=== PATIENT | female | born 1945 | race Caucasian/White ===

== ENCOUNTER 2019-07-08 21:49 | Inpatient (IN) ==
[2019-07-08] MEDS ORDERED: SODIUM CHLORIDE 0.9% 1000ML 1,000 ML IV ONE (22:02)
[2019-07-08] MEDS ORDERED: ONDANSETRON INJ 2 MG/ML 2 ML VIAL IV STA (22:02)
[2019-07-08] MEDS ORDERED: HYDROmorphone INJ 0.5 MG/0.5 ML SYR IV PRN (22:02)
[2019-07-08 22:44] LABS: Basophils # (auto) 0.07 K/uL (0-0.2); Basophils % (auto) 0.7 %; Eosinophils # (auto) 0.33 K/uL (0-0.5); Eosinophils % (auto) 3.3 %; Hemoglobin 13.9 g/dL (12.0-16.0); Immature Granulocytes # (auto) 0.01 K/uL (0.00-0.02); Immature Granulocytes % (auto) 0.1 %; Lymphocytes % (auto) 30.3 %; Mean Corpuscular Hgb Conc 33.9 g/dL (32-36); Mean Corpuscular Volume 94.3 fL (80-100); Mean Platelet Volume 9.2 fL (7.4-10.4); Monocytes # (auto) 1.08 K/uL (0.11-0.59); Monocytes % (auto) 10.9 %; Neutrophils # (auto) 5.41 K/uL (1.4-6.5); Neutrophils % (auto) 54.7 %; Platelet Count 251 K/uL (130-400); RDW Coefficient of Variation 13.2 % (11.5-14.5); RDW Standard Deviation 46.1 fL (36.4-46.3); Red Blood Count 4.35 M/uL (4.2-5.4)
[2019-07-08 23:02] LABS: Albumin Level 3.7 gm/dl (3.4-5.0); BUN Creatinine Ratio 22.6 (10-20); Calcium 9.1 mg/dl (8.5-10.1); Creatinine Clr Calc Pharmacy 63.2 ml/min; Est GFR (African American) 92.3; Est GFR (Non-African American) 79.6
[2019-07-08 23:05] LABS: Albumin Globulin Ratio 1.1 (0.9-2); Bilirubin,Total 0.2 mg/dl (0.2-1); Globulin 3.3 gm/dl (2.5-4.0)
[2019-07-08] MEDS ORDERED: IOVERSOL 100ml IV PRN (23:58)
[2019-07-09] MEDS ORDERED: LORazepam 0.5 MG/1 ML VIAL IV STA (00:28)
[2019-07-09] MEDS ORDERED: ONDANSETRON INJ 2 MG/ML 2 ML VIAL IV PRN (03:31)
[2019-07-09] MEDS ORDERED: D5W AND NSS 1,000 ML IV SCH (03:31)
[2019-07-09] MEDS ORDERED: HYDROmorphone INJ 0.5 MG/0.5 ML SYR IV PRN ×2 (03:31→16:44)
--- NOTE | 2019-07-09 04:19 | History and Physical Report ---
DATE OF ADMISSION: 07/09/2019 CHIEF COMPLAINT: Abdominal pain. HISTORY OF PRESENT ILLNESS: A 74-year-old female with past medical history significant for multinodular goiter, osteoarthritis, osteoporosis, epilepsy, neuropathy, generalized anxiety disorder, history of leukocytosis, presents with right upper quadrant abdominal pain going on since last Saturday; however, today it got worse, about 9/10 in severity, radiating to the upper portion of the chest. No nausea, no vomiting. Moved her bowels in the morning, which was normal. No bloody stools or black stools. Currently, passing gas little bit. No fever, no chills, no cough, no headache, no blurred vision, no sore throat. Has chronic dry cough on and off. Normal bladder movements. No burning micturition. Has chronic lower extremity swelling that has not increased. No rash. Currently living with her daughter, walks with help of a cane. In the ER, imaging studies, possible gastric volvulus, surgery was consulted. The patient is status post NG-tube, as per ER surgery is going to see in the morning and decide for further plan. ALLERGIES: BEE VENOM. PAST MEDICAL HISTORY: As mentioned above. PAST SURGICAL HISTORY: Repair of the elbow. MEDICATIONS: The patient is on vitamin C 1000 mcg p.o. daily, Tegretol-XR 400 mg p.o. b.i.d., Lumigan ophthalmic eyedrops in p.m., B complex with vitamin C tablet daily, Turmeric 500 mg p.o. daily, Centrum Silver 1 tablet daily. FAMILY HISTORY: Significant for: Daughter has breast cancer. Mother had CAD. Father had emphysema. Mother had uterine cancer. SOCIAL HISTORY: , currently living with her daughter. No smoking, alcohol rarely. No drug use. REVIEW OF SYMPTOMS: As per HPI. Rest of review of systems is negative. PHYSICAL EXAMINATION: GENERAL: The patient is of moderate build, not in acute distress. VITAL SIGNS: Temperature 36.5, pulse 110, respiratory rate 16, blood pressure 124/82, oxygen 94% on room air. HEENT: No pallor, no icterus. Pupils equal, round, reactive to light. NG tube seen. Oral mucosa moist. NECK: No JVD, no neck masses, no carotid bruits. CARDIOVASCULAR: S1, S2 heard. Tachycardia. No murmurs. RESPIRATORY SYSTEM: Normal AP diameter. No accessory muscle use. No wheezing, no crackles. ABDOMEN: Soft. Bowel sounds, very sluggish. Nontender. No guarding, no rigidity. No distention. CENTRAL NERVOUS SYSTEM: Nonfocal. EXTREMITIES: No edema, no erythema. LABORATORY DATA: WBC is 9.9, hemoglobin 13.9, hematocrit 41, platelets 251. Sodium 143, potassium 4, chloride 108, bicarbonate 26, BUN 17, creatinine 0.7, serum glucose 111, calcium 9.1, total bilirubin 0.2, AST 15, ALT 21, alkaline phosphatase 155. Lipase 105. Chest CT, gallbladder ultrasound, CT abdomen and pelvis, official reading pending. 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 1. Abdominal pain, possible gastric volvulus. Currently, status post NG tube. We will keep her n.p.o., IV fluids, IV pain meds p.r.n., IV antiemetics p.r.n. Surgery notified by the ER and is going to be seen in the a.m. We will monitor on the medical floor.Lipase normal.Will follow final ct scan report. 2. Possible gallstones. We will follow up with final gallbladder ultrasound report. 3. History of epilepsy. Continue carbamazepine via NG tube. 4. Osteoarthritis and osteoporosis. PT and OT when the patient is stable. 5. Deep venous thrombosis prophylaxis, sequential compression devices. DISPOSITION: Admit to medical floor. Expect discharge home and follow with her family doctor. Level 1 full code. PT and OT prior to discharge. Social Service to help with discharge planning. TIM
--- NOTE | 2019-07-09 06:38 | CT Scan Report ---
CT abd pelvis IV con only CLINICAL HISTORY: Right upper quadrant abdominal pain COMPARISON STUDY: Biliary ultrasound dated 07/08/2019 TECHNIQUE: The patient was scanned in a dynamic helical fashion during intravenous administration of 92 cc of Optiray 320. A dose lowering technique was utilized adhering to the principles of ALARA. CT DOSE: 460.31 mGy.cm FINDINGS: Lower chest: There is a large hiatal hernia. There is basilar atelectatic change. Liver: The contrast-enhanced liver is normal in size, contour, and attenuation. There is no intrahepa tic biliary ductal dilatation. The hepatic veins and portal veins are patent. Gallbladder: Unremarkable. Spleen: Normal in size and attenuation. Pancreas: There is slight indistinctness the peripancreatic fat. Clinical correlation in regards to a cute pancreatitis is recommended. Adrenal glands: There is a 17 mm left adrenal gland nodule. Kidneys: There is symmetric renal cortical enhancement. The kidneys are normal in size without hydron ephrosis. Bowel: There are no transition zones to indicate bowel obstruction. There is no evidence of acute div erticulitis. There are no findings to indicate acute appendicitis. Peritoneum: There is no intraperitoneal free air or abdominal ascites. Vasculature: The abdominal aorta is normal in course and caliber. Adenopathy: None. Pelvic viscera: The bladder, and pelvic viscera are unremarkable. Skeletal structures: There is an old T12 compression fracture. IMPRESSION: 1. Large hiatal hernia with an thoracic stomach. Gastric inversion not excluded 2. Motion artifact versus mild peripancreatic edema. Clinical correlation in regards to acute pancrea titis is recommended. 3. 17 mm left adrenal nodule 4. No evidence of bowel obstruction. No evidence of free air. 5. No evidence of acute appendicitis. No evidence of acute diverticulitis. Electronically signed by: Greg Clay M.D. 07/09/2019 6:36 AM
[2019-07-09 06:39] LABS: Appearance Urine Clear (Clear); Bacteria Urine Automated 4+ (Negative); Bilirubin Urine Negative (Negative); Blood Urine Trace (Negative); Color Urine Yellow; Glucose Urine UA Negative (Negative); Ketones Urine Negative (Negative); Leukocyte Esterase Urine Negative (Negative); Nitrite Urine Positive (Negative); Protein Urine Negative (Negative); RBC Urine Automated 0-4 /hpf (0-4); Specific Gravity Urine > 1.045 (1.000-1.030); Urobilinogen Urine Negative (Negative); pH Urine 5.5 (4.5-7.5)
--- NOTE | 2019-07-09 06:50 | Ultrasound Report ---
US gallbladder CLINICAL HISTORY: 74 years-old Female presenting with Pt c/o RUQ abd pain. TECHNIQUE: Real-time grayscale and limited color Doppler ultrasound imaging of the abdomen limited to the right upper quadrant was performed. COMPARISON: None. FINDINGS: Pancreas: Largely obscured due to overlying bowel gas. Liver: Normal echogenicity and echotexture. The liver measures 26.5 cm in maximal sagittal dimension, possibly a David lobe configuration. No sonographic evidence of hepatic mass. Main portal vein ballard nt with normal directional flow. Biliary: No intrahepatic biliary ductal dilatation. Common bile duct measures up to 2 mm in diameter. Gallbladder: Gallstones without evidence of gallbladder distention, wall thickening, or pericholecyst ic fluid or inflammatory change. Right kidney: Normal in appearance without evidence of hydronephrosis. Ascites: None. Other: None. IMPRESSION: Cholelithiasis. No biliary ductal dilatation or evidence of cholecystitis. Electronically signed by: Harvinder Kuhn M.D. 07/09/2019 6:49 AM
--- NOTE | 2019-07-09 07:26 | Surgery Consultation ---
Date of Consultation July 09, 2019 Assessment & Plan (1) Incarcerated hiatal hernia: currently no pain. clinically, her symptoms sounded much more like symptomatic gallstones after eating ice cream. no emesis or dysphagia. will d/c ngt ( not working anyway) will obtain a HIDA scan. may consider lap breanna vs simple observation....clinically symptoms not c/w incarcerated hiatal hernia. we could discuss elective repair of this with the cholecystectomy, vs cholecystectomy alone vs observation with no intervention. will d/w family after HIDA. (2) Gallstones: History of Present Illness Attending Physician: Bethel Zhu MD History of Present Illness pt states after eating ice cream last night, she developed RUQ pain. no n/v. severe at the time. ER w/u shows gallstones and a large hiatal hernia ( " cant r/o gastric volvulous). She was aware she has a hiatal hernia and is asymptomatic from it. denies dysphagia or gerd. currently no pain. no n/v. NGT with zero output overnight. Allergies Allergy/AdvReac Type Severity Reaction Status Date / Time No Known Allergies Allergy Unverified 07/08/19 23:04 Home Medications Home Medications Medication Instructions Recorded Confirmed Type B-complex with vitamin C [Super B 1 tab PO DAILY 07/08/19 07/08/19 History Complex-Vitamin C] Turmeric Capsule 500 mg PO DAILY 07/08/19 07/08/19 History bimatoprost [Lumigan] 1 drp OPHTHALMIC (EYE) PM 07/08/19 07/08/19 History calcium carbonate-vitamin D3 1 cap PO DAILY 07/08/19 07/08/19 History [Calcium 600 + D(3)] carbamazepine 400 mg PO BID 07/08/19 07/08/19 History [id number] acid-lutein [Centrum 1 tab PO DAILY 07/08/19 07/08/19 History Silver] Patient History Medical History Broken rib Glaucoma Seizure Surgical History History of elbow surgery Social History Preferred Language: Syriac Communication Ability: Effective Cadmium Liquor Maker Required: No Beliefs That Will Affect Care: None Current Living Situation: Family Current Living Situation Comment: Daughter Other Information That Helps Us Care for You: No Feels Safe at Home: Yes Safety Concerns: Feels Safe At This Time Smoking Status: Never smoker Hx Alcohol Use: Yes Alcohol type: wine and hard liquor Hx Substance Use: No Review of Systems Review of Systems: All systems reviewed & are unremarkable except as noted in HPI & below Physical Exam Constitutional: WD/WN, vitals as above no acute distress and not ill appearing denies pain currently. Eyes: PERRL, conjunctivae normal, anicteric sclerae EOM intact bilaterally ENMT: external ear and nose normal, oropharynx normal Ears: no hearing impairment Neck: trachea midline, no thyromegaly Respiratory: normal respiratory effort; no respiratory distress and does not use accessory muscles Cardiovascular: Rate/Rhythm: regular rhythm and + tachycardic Gastrointestinal (Abdomen): Percussion/Palpation: abdomen soft mild RUQ ttp. no g/r/r. Skin: no rashes, warm and dry Psychiatric: Orientation: alert, oriented x 3 and cooperative Results & Data Vital Signs (Past 12 Hours) Vital Signs Temp Pulse Pulse Pulse Resp BP BP 07/09/19 03:36 36.7 C 107 H 16 153/93 H 07/09/19 03:10 101 H 16 126/85 07/09/19 02:28 111 H 16 124/82 07/09/19 01:17 116 H 18 143/87 H 07/08/19 23:53 110 H 20 151/88 H 07/08/19 22:58 98 H 16 133/81 07/08/19 22:45 91 H 26 H 88/55 L 07/08/19 22:44 84 22 77/53 L 07/08/19 22:43 63 20 67/41 L 07/08/19 22:42 53 L 20 63/37 L 07/08/19 22:41 51 L 17 60/33 L 07/08/19 22:33 103 H 23 07/08/19 22:30 106 H 20 136/79 07/08/19 22:22 07/08/19 21:51 36.5 C 113 H 18 141/77 H Pulse Ox 07/09/19 03:36 93 07/09/19 03:10 94 07/09/19 02:28 94 07/09/19 01:17 92 07/08/19 23:53 93 07/08/19 22:58 92 07/08/19 22:45 92 07/08/19 22:44 92 07/08/19 22:43 92 07/08/19 22:42 07/08/19 22:41 90 07/08/19 22:33 92 07/08/19 22:30 94 07/08/19 22:22 96 07/08/19 21:51 96 PG Care Time/CCT Total # of Minutes Spent Total Time Spent with Patient: Total time spent is greater than 50% in coordination of care (as documented) at patient's floor/unit and/or counseling patient:
--- NOTE | 2019-07-09 07:29 | CT Scan Report ---
CT chest wo con CLINICAL HISTORY: 74 years-old Female presenting with gastric volvulus decompression s/p ng placement . TECHNIQUE: Multidetector CT imaging of the chest was performed without the use of intravenous contras t. IV contrast: None. One or more dose lowering techniques were used consistent with the principles o f ALARA (as low as reasonably achievable), including automatic exposure control, mA or kV adjustment to individual patient size, and/or use of iterative reconstruction. COMPARISON: None. CT DOSE (mGy.cm): The estimated cumulative dose is 351.67 mGy.cm. FINDINGS: Graphic User Interface Designer topogram: Cardiomegaly. Nasogastric tube in place. Soft tissues: Thyromegaly with multinodular goiter. Superior mediastinal and retrotracheal-retroesoph ageal component of the goiter. No axillary, supraclavicular, or mediastinal lymphadenopathy. Evaluati on of the danni limited without intravenous contrast. Atherosclerosis of the aorta. Normal heart size. Coronary artery calcification. No pericardial or pleural effusion. Large hiatal hernia, which is a m ixed sliding type and paraesophageal. A nasogastric tube is in place terminating in the region of the gastroesophageal junction with the tip looped back upon itself and terminating within the distal eso phagus (series 4 image 132). The esophagus is mildly distended with fluid and debris. The stomach coy ears inverted along the long axis of the stomach with the greater curvature likely above the lesser c urvature, consistent with organoaxial twisting. The hernia sac also contains unobstructed small bowel and a portion of the pancreas. Lungs and airways: No pneumothorax. Central airways patent. Pulmonary arteries mildly enlarged relati ve to adjacent bronchi. No interlobular septal thickening. Extensive paramediastinal consolidation vo lume loss in the lower lobes. Musculoskeletal: Degenerative changes of the spine. Moderate to severe compression fracture of T12. B enign hemangioma suspected in T9. IMPRESSION: 1. 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 2. Bibasilar atelectasis. 3. Moderate to severe compression fracture of T10. This is age-indeterminate. The report will be called/faxed according to standard departmental protocol. Electronically signed by: Harvinder Kuhn M.D. 07/09/2019 7:27 AM
[2019-07-09 07:40] LABS: Basophils # (auto) 0.03 K/uL (0-0.2); Basophils % (auto) 0.3 %; Eosinophils # (auto) 0.11 K/uL (0-0.5); Eosinophils % (auto) 1.1 %; Hematocrit (blood only) 39.7 % (37-47); Hemoglobin 13.3 g/dL (12.0-16.0); Immature Granulocytes # (auto) 0.01 K/uL (0.00-0.02); Immature Granulocytes % (auto) 0.1 %; Lymphocytes # (auto) 2.22 K/uL (1.2-3.4); Lymphocytes % (auto) 23.2 %; Mean Corpuscular Hemoglobin 32.1 pg (25-34); Mean Corpuscular Hgb Conc 33.5 g/dL (32-36); Mean Corpuscular Volume 95.9 fL (80-100); Mean Platelet Volume 9.2 fL (7.4-10.4); Monocytes # (auto) 0.95 K/uL (0.11-0.59); Monocytes % (auto) 9.9 %; Neutrophils # (auto) 6.25 K/uL (1.4-6.5); Neutrophils % (auto) 65.4 %; Platelet Count 248 K/uL (130-400); RDW Coefficient of Variation 13.5 % (11.5-14.5); RDW Standard Deviation 47.4 fL (36.4-46.3); Red Blood Count 4.14 M/uL (4.2-5.4); White Blood Count 9.57 K/uL (4.8-10.8)
[2019-07-09 08:08] LABS: BUN Creatinine Ratio 19.9 (10-20); Calcium 8.9 mg/dl (8.5-10.1); Creatinine Clr Calc Pharmacy 79.2 ml/min; Est GFR (Non-African American) 90.6; Magnesium 2.1 mg/dl (1.8-2.4); Potassium 4.8 mmol/L (3.5-5.1)
[2019-07-09] MEDS: CARBAMAZEPINE 200 MG TABCR PO SCH ×2 (09:19→20:55)
[2019-07-09] MEDS: D5W AND 1/2NSS 1,000 ML IV SCH (10:14)
[2019-07-09] MEDS ORDERED: SINCALIDE 1.4 MCG in 0.9 % SODIUM CHLORIDE 100 ML IV SCH (14:15)
--- NOTE | 2019-07-09 16:00 | Nuclear Medicine Report ---
NM hepatobiliary EF CLINICAL HISTORY: 74 years-old Female presenting with ruq pain, cholelithiasis, gastric volvulus, r/o cholecystitis. TECHNIQUE: Dynamic anterior imaging of the gallbladder was first acquired immediately following the i ntravenous administration of 5.2 mCi Tc-99m Choletec. Subsequently, dynamic delayed imaging of the ga llbladder was initiated 65 minutes after Choletec administration acquiring images every 5 minutes ove r a span of 40-60 minutes. The gallbladder ejection fraction was calculated from delayed imaging. PHARMACOLOGY: Medication: Sincalide 1.4 mcg administered IV 5 minutes prior to the start of delayed imaging as a 30 minute infusion. Oral meal: None. COMPARISON: None. FINDINGS: Uniform hepatic tracer accumulation is shown. Prompt intrahepatic biliary excretion is seen. The gall bladder and common bile duct are visualized by 11-15 minutes. Expected radiotracer activity within sm all bowel indicates an unobstructed common duct. The gallbladder does not demonstrate a normal rate of decrease in radiotracer activity, consistent wi th abnormal contraction in response to CCK. Gallbladder ejection fraction (GBEF) measures 14%. Reference range (with Sincalide use): Unequivocally normal: Greater than 50%. Unequivocally abnormal: Less than 35%. Notably, the lower limit of normal GBEF in the setting of a lactose-free fatty-meal food supplement ( Boost shake) has been reported as > or = 33%. Louis ZHOU, Fredis DA, Tonia LR, et al. Cholecystokinin cholescintigraphy: methodology and normal travon ues using a lactose-free fatty-meal food supplement. J Nucl Med. 2003;44:7112-9970. IMPRESSION: 1. No evidence of acute cholecystitis. Abnormal gallbladder ejection fraction consistent with chroni c cholecystitis. Electronically signed by: Harvinder Kuhn M.D. 07/09/2019 3:59 PM
--- NOTE | 2019-07-09 16:27 | Hospitalist Progress Note ---
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 This does not result in a complete obstruction though a partial organoaxial volvulus is suspected -General surgery evaluated the patient in AM of 07/09/19. NG tube was removed. General surgery impression that clinically symptoms are not consistent with incarcerated hiatal hernia, and general surgery suggest that symptoms are from symptomatic gallstones as imaged on ultrasound "Gallstones without evidence of gallbladder distention, wall thickening, or pericholecystic fluid or inflammatory change." -HIDA scan was ordered by general surgery and HIDA scan result of "unobstructed common duct"; "No evidence of acute cholecystitis. Abnormal gallbladder ejection fraction consistent with chronic cholecystitis" -continue to have patient NPO and with D5 1/2 normal saline for hydration and nutrition and await for general surgery to re-evaluate based on current imaging results on whether any surgical interventions are needed large Paraesophageal Hiatal hernia Cholelithiasis Chronic cholecystitis -Management as above History of epilepsy - Continue home dose carbamazepine by mouth Osteoarthritis osteoporosis with compression fracture of T10 -on CT chest there is Moderate to severe compression fracture of T10. This is age-indeterminate -patient able to ambulate on her own power Deep venous thrombosis prophylaxis: sequential compression devices. Full Code Patient's daughter Angeles [phone] Subjective Patient seen and examined this AM and again after returning from HIDA scan. Patient has not had bowel movement today. She reports she is passing gas. Last bowel movement yesterday. no vomiting. no fever. no chest pain. pain is right upper quadrant underneath the ribs when palpated. no other areas of tenderness. no dizziness. no lightheadedness. Physical Exam Constitutional: comfortable Eyes: EOM intact bilaterally ENMT: external ear and nose normal, oropharynx normal Neck: normal visual inspection Respiratory: normal respiratory effort, lungs clear to auscultation Cardiovascular: Rate/Rhythm: regular rate and regular rhythm Gastrointestinal (Abdomen): Percussion/Palpation: abdomen soft bowel sounds present, on pressing right upper quadrant under the rib cage elicits tenderness Musculoskeletal: no cyanosis or clubbing, extremities motor strength 5/5 Head/Neck/Chest: normocephalic and head atraumatic Neurologic: PERRL, EOMI, accommodation nl, no face palsy, no dysarthria CN's II-XI intact bilaterally Psychiatric: A+Ox3, euthymic affect Results & Data Vital Signs (Past 12 Hours) Vital Signs Temp Pulse Resp BP BP Pulse Ox 07/09/19 16:22 37.2 C 85 16 147/92 H 92 07/09/19 11:17 36.8 C 89 20 152/90 H 94 07/09/19 07:17 36.5 C 94 H 24 142/92 H 94
[2019-07-09] MEDS ORDERED: ACETAMINOPHEN 65 ML IV PRN (16:45)
--- NOTE | 2019-07-09 17:35 | Surgery Progress Note ---
Date of Service July 09, 2019 Assessment & Plan (1) Gallstones: symptoms more c/w gallbladder. has had hiatal hernia for years with no symptoms discussed options. high risk for large paraesophageal surgery. I recommend trying diet. if tolerates, d/c home to f/u with me in 2-3 weeks. if symptoms recur/persist, we could discuss lap breanna I also gave them the signs/symptoms of gastric volvulous and when to go to the nearest ER [facility]. pt/daughter agreeable to plan. (2) Incarcerated hiatal hernia: Subjective pt feeling well. almost no pain...small amount of RUQ after HIDA. no n/v. Physical Exam Physical Exam: alert/oriented. nad. daughter at bedside abd: soft. mild discomfort over right lower rib cage. no g/r/r Results & Data Vital Signs (Past 12 Hours) Vital Signs Temp Pulse Resp BP BP Pulse Ox 07/09/19 17:14 134/84 07/09/19 16:22 37.2 C 85 16 147/92 H 92 07/09/19 11:17 36.8 C 89 20 152/90 H 94 07/09/19 07:17 36.5 C 94 H 24 142/92 H 94 PG Care Time/CCT Total # of Minutes Spent Total Time Spent with Patient: Total time spent is greater than 50% in coordination of care (as documented) at patient's floor/unit and/or counseling patient:
[2019-07-09] MEDS: BIMATOPROST 0.01% OP SOLN 2.5 ML BTL OP SCH (21:01)
--- NOTE | 2019-07-09 23:21 | Emergency Department Note ---
Entered by Erin Honeycutt acting as a scribe for History of Present Illness General Chief complaint: Flank Pain Stated complaint: SEVERE SIDE PAIN RT SIDE UNDER RT BREAST Time Seen by Provider: 07/08/19 21:56 Source: patient History of Present Illness Provider complaint: upper right abdominal pain Onset (ago): day(s) 3 Location: abdomen (upper) and right Severity: similar to prior episodes (when she broke her rib) Pain Consistency: + other (episode) Maximum Pain Intensity: 8 Exacerbated By: + eating and + movement Associated symptoms: + other (feels like pulled muscle in rib area) The patient is a 74 year old female who presents to the ED with complaints of an episode of upper right abdominal pain that started 3 days ago. The patient states that she stood up off the couch on Saturday and it felt like she pulled a muscle in her rib area. The patient notes that this felt similar to when she broke her rib in the past. The patient states that her pain was exacerbated tonight after dinner, and then exacerbated even more after eating ice cream which she thought would ease her pain. The patient notes that her pain is also exacerbated with movement. Home Medications Home Medications Medication Instructions Recorded Confirmed Type B-complex with vitamin C [Super B 1 tab PO DAILY 07/08/19 07/08/19 History Complex-Vitamin C] Turmeric Capsule 500 mg PO DAILY 07/08/19 07/08/19 History bimatoprost [Lumigan] 1 drp OPHTHALMIC (EYE) PM 07/08/19 07/08/19 History calcium carbonate-vitamin D3 1 cap PO DAILY 07/08/19 07/08/19 History [Calcium 600 + D(3)] carbamazepine 400 mg PO BID 07/08/19 07/08/19 History [id number] acid-lutein [Centrum 1 tab PO DAILY 07/08/19 07/08/19 History Silver] Allergies Allergy/AdvReac Type Severity Reaction Status Date / Time No Known Allergies Allergy Unverified 07/08/19 23:04 Past Med/Surg History Medical History Broken rib Glaucoma Seizure Surgical History History of elbow surgery Social History Preferred Language: Hungarian Communication Ability: Effective Pension Consultant Required: No Beliefs That Will Affect Care: None Current Living Situation: Family Current Living Situation Comment: Daughter Other Information That Helps Us Care for You: No Feels Safe at Home: Yes Safety Concerns: Feels Safe At This Time Smoking Status: Never smoker Hx Alcohol Use: Yes Alcohol type: wine and hard liquor Hx Substance Use: No Review of Systems See HPI for pertinent positives & negatives. and A total of 10 systems reviewed and were otherwise negative Physical Exam Vital Signs Vital Signs - 24 hr 07/08/19 23:53 07/09/19 01:17 07/09/19 02:28 Pulse Rate [Right] 110 H 116 H 111 H Pulse Rhythm [Right] Regular Regular Pulse Strength [Right] Normal Normal Respiratory Rate 20 18 16 Respiratory Effort / Characteristics Non-Labored Non-Labored Spontaneous Non-Labored Spontaneous Respiratory Depth Normal Normal Normal Respiratory Pattern Regular Blood Pressure [Right Arm] 151/88 H 143/87 H 124/82 Blood Pressure Mean [Right Arm] 109 105 96 Blood Pressure Position [Right Arm] Lying Pulse Oximetry 93 92 94 Oxygen Delivery Method Room Air Room Air Room Air GENERAL: Awake, alert, well-appearing, in no acute distress HENT: Normocephalic, atraumatic. Oropharynx unremarkable. EYES: Normal conjunctiva. Sclera non-icteric. NECK: Supple. No nuchal rigidity. FROM. No JVD. RESPIRATORY: Clear to auscultation. CARDIAC: Regular rate, normal rhythm. Extremities warm and well perfused. Pulses equal. ABDOMEN: Soft, non-distended. RUQ tenderness to palpation. No rebound or guarding. No masses. RECTAL: Deferred. MUSCULOSKELETAL: Chest examination reveals no tenderness. The back is symmetrical on inspection without obvious abnormality. There is no CVA tenderness to palpation. No joint edema. LOWER EXTREMITIES: Calves are equal size bilaterally and non-tender. No edema. No discoloration. NEURO: Normal sensorium. No sensory or motor deficits noted. SKIN: No rash or jaundice noted. Course 2157: Past medical records reviewed. The patient was evaluated in room B10. A complete history and physical exam was performed. Administered Medications Bimatoprost (Lumigan 0.01%) 1 drops OP PM JUAN FRANCISCO Stop: 08/08/19 20:59 Last Admin: 07/09/19 21:01 Dose: 1 drops Documented by: [id number] Carbamazepine (Tegretol Xr) 400 mg PO BID JUAN FRANCISCO Stop: 08/08/19 08:59 Last Admin: 07/09/19 20:55 Dose: 400 mg Documented by: [id number] Admin: 07/09/19 09:19 Dose: 400 mg Documented by: [id number] Dextrose/Sodium Chloride (D5w And 1/2nss) 1,000 mls @ 60 mls/hr IV .[id number] JUAN FRANCISCO Stop: 08/08/19 09:59 Last Admin: 07/09/19 10:14 Dose: 60 mls/hr Documented by: [id number] Discontinued Medications Hydromorphone HCl (Dilaudid) 0.5 mg IV Q15M PRN PRN Reason: Pain Stop: 07/22/19 22:01 Last Admin: 07/08/19 22:29 Dose: 0.5 mg Documented by: [id number] Sodium Chloride (Nss 1000ml) 1,000 mls @ 999 mls/hr IV .Q1H1M ONE Stop: 07/08/19 23:02 Last Infusion: 07/08/19 23:52 Dose: 0 mls/hr Documented by: [id number] Admin: 07/08/19 22:26 Dose: 999 mls/hr Documented by: [id number] Lorazepam (Ativan) 0.5 mg in 1 mls @ 1 mls/min IV NOW STA Stop: 07/09/19 00:29 Last Admin: 07/09/19 00:37 Dose: 1 mls/min Documented by: [id number] Dextrose/Sodium Chloride (D5w And Nss) 1,000 mls @ 125 mls/hr IV .Q8H JUAN FRANCISCO Stop: 08/08/19 03:30 Last Infusion: 07/09/19 10:29 Dose: 0 mls/hr Documented by: [id number] Admin: 07/09/19 04:02 Dose: 125 mls/hr Documented by: [id number] Sincalide 1.4 mcg/ Sodium (Chloride) 101.4 mls @ 200 mls/hr IV TODAY@14[facility] Stop: 07/09/19 14:16 Last Admin: 07/09/19 16:49 Dose: Not Given Documented by: [id number] Ioversol (Optiray 320 100ml) 100 ml IV ONCE PRN PRN Reason: Interaction Checking Stop: 07/12/19 23:57 Last Admin: 07/08/19 23:58 Dose: 92 ml Documented by: [id number] Ondansetron HCl (Zofran) 4 mg IV NOW STA Stop: 07/08/19 22:03 Last Admin: 07/08/19 22:28 Dose: 4 mg Documented by: [id number] Medical Decision Making Differential Diagnosis Differential diagnosis: Etiologies such as biliary colic, cholecystitis, hepatitis, perihepatitis, pancreatitis, cardiac disease, pancreatitis, gastritis, peptic ulcer disease, appendicitis, ovarian cyst, ovarian torsion, ectopic , pelvic inflammatory disease, cystitis, diverticulitis, mesenteric ischemia, inflammatory bowel disease, ileus, bowel obstruction, aortic pathology, shing les, as well as others were considered. Medical Records Attestation: I reviewed the patient's medical records. Home Medications Current Medication List: was personally reviewed by me Laboratory Data Attestation: I reviewed the patient's lab results. Result diagrams: 07/09/19 07:07 07/09/19 07:07 Lab Results 07/08/19 07/08/19 Range/Units 22:22 22:22 WBC 9.90 (4.8-10.8) K/uL RBC 4.35 (4.2-5.4) M/uL Hgb 13.9 (12.0-16.0) g/dL Hct 41.0 (37-47) % MCV 94.3 (80-100) fL MCH 32.0 (25-34) pg MCHC 33.9 (32-36) g/dL RDW Std Deviation 46.1 (36.4-46.3) fL RDW Coeff of Bhavesh 13.2 (11.5-14.5) % Plt Count 251 (130-400) K/uL MPV 9.2 (7.4-10.4) fL Immature Gran % (Auto) 0.1 % Neut % (Auto) 54.7 % Lymph % (Auto) 30.3 % [place] % (Auto) 10.9 % Eos % (Auto) 3.3 % Baso % (Auto) 0.7 % Immature Gran # (Auto) 0.01 (0.00-0.02) K/uL Neut # (Auto) 5.41 (1.4-6.5) K/uL Lymph # (Auto) 3.00 (1.2-3.4) K/uL [place] # (Auto) 1.08 H (0.11-0.59) K/uL Eos # (Auto) 0.33 (0-0.5) K/uL Baso # (Auto) 0.07 (0-0.2) K/uL Sodium 143 (136-145) mmol/L Potassium 4.0 (3.5-5.1) mmol/L Chloride 108 H (98-107) mmol/L Carbon Dioxide 26 (21-32) mmol/L Anion Gap 9.0 (3-11) BUN 17 (7-18) mg/dl Creatinine 0.75 (0.6-1.2) mg/dl Est Cr Clr Drug Dosing 63.2 ml/min Est GFR ( Amer) 92.3 Est GFR (Non-Af Amer) 79.6 BUN/Creatinine Ratio 22.6 H (10-20) Glucose 111 H (70-99) mg/dl Calcium 9.1 (8.5-10.1) mg/dl Total Bilirubin 0.2 (0.2-1) mg/dl AST 15 (15-37) U/L ALT 21 (12-78) U/L Alkaline Phosphatase 155 H (45-117) U/L Total Protein 7.0 (6.4-8.2) gm/dl Albumin 3.7 (3.4-5.0) gm/dl Globulin 3.3 (2.5-4.0) gm/dl Albumin/Globulin Ratio 1.1 (0.9-2) Lipase 105 (73-393) U/L Imaging Data Radiologist's Impression: Radiology results as stated below per my review and the radiologist's interpretation: CT ABDOMEN & PELVIS: Very large hiatal hernia partially imaged containing majority of the stomach with the distal stomach positioned to the left of the proximal stomach for example axial 3 and component of gastric volvulus not excluded. May benefit from nasogastric decompression. Bibasilar atelectasis Motion artifact upper abdomen limit evaluation of the pancreas for possible mild pancreatic edema, may correlate with further lipase. 1.7 cm indeterminate nodule left adrenal gland axial 19 Other solid organs and abdominal aorta appear within limits Very small faint stones or sludge nondistended, noninflamed gallbladder No bowel dilation or free air No free fluid Nonacute severe appearing T12 compression fracture. Radiologist: Gomez Dodson M.D US RUQ: Study limited by bowel gas Pancreas obscured by bowel gas Liver measures 26.5 cm in length likely secondary to Reidel's lobe without evidence of focal lesion No right hydronephrosis or free fluid seen A few small gallstones seen without wall thickening or pericholecystic free fluid CBD 2 mm Radiologist: Gomez Dodson M.D CT chest wo con CLINICAL HISTORY: 74 years-old Female presenting with gastric volvulus decompres tiarra s/p ng placement. TECHNIQUE: Multidetector CT imaging of the chest was performed without the use of intravenous contrast. IV contrast: None. One or more dose lowering techniques were used consistent with the principles of ALARA (as low as reasonably achievable), including automatic exposure control, mA or kV adjustment to individual patient size, and/or use of iterative reconstruction. COMPARISON: None. CT DOSE (mGy.cm): The estimated cumulative dose is 351.67 mGy.cm. FINDINGS: Linen Grader topogram: Cardiomegaly. Nasogastric tube in place. Soft tissues: Thyromegaly with multinodular goiter. Superior mediastinal and retrotracheal-retroesophageal component of the goiter. No axillary, supr aclavicular, or mediastinal lymphadenopathy. Evaluation of the danni limited without intravenous contrast. Atherosclerosis of the aorta. Normal heart size. Coronary artery calcification. No pericardial or pleural effusion. Large hiatal hernia, which is a mixed sliding type and paraesophageal. A nasogastric tube is in place terminating in the region of the gastroesophageal junction with the tip looped back upon itself and terminating within the distal esophagus (series 4 image 132). The esophagus is mildly distended with fluid and debris. The stomach appears inverted along the long axis of the stomach with the greater curvature likely above the lesser curvature, consistent with organoaxial twisting. The hernia sac also contains unobstructed small bowel and a portion of the pancreas. Lungs and airways: No pneumothorax. Central airways patent. Pulmonary arteries mildly enlarged relative to adjacent bronchi. No interlobular septal thickening. Extensive paramediastinal consolidation volume loss in the lower lobes. Musculoskeletal: Degenerative changes of the spine. Moderate to severe com pression fracture of T12. Benign hemangioma suspected in T9. IMPRESSION: 1. 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 2. Bibasilar atelectasis. 3. Moderate to severe compression fracture of T10. This is age-indeterminate. The report will be called/faxed according to standard departmental protocol. Electronically signed by: Harvinder Kuhn M.D. 07/09/2019 7:27 AM Dictated: 07/09/19630 Transcribed: 07/09/19630 Blood Pressure Blood Pressure Findings: Elevated blood pressure MDM Narrative This is a 74-year-old female who presents emergency department complaining of abdominal pain. Using shared medical decision making both patient and family the decision was made to send patient for CAT scan the abdomen pelvis as well as an ultrasound. Patient does have an elevation in her white blood cell count. Based on the patient's CAT scan I am concerned that the patient has a gastric volvulus. We attempted to place an NG tube down however were unsuccessful in placement. Patient then had a repeat CAT scan of the chest to confirm that the NG tube was in place. I did discuss the case with the surgeon on-call who asked that the patient be admitted to the medicine service. Patient was given Dilaudid here for her pain. She had a vasovagal reaction to the Dilaudid. Patient family were in agreement with the treatment plan. Impression & Plan Incarcerated hiatal hernia, Gallstones, RUQ pain Discharge Plan Visit Data *Final* Discharge Date/Time: 07/09/19 03:10 Chief Complaint: Flank Pain Stated Complaint: SEVERE SIDE PAIN RT SIDE UNDER RT BREAST ED Provider: Jay Payan Discharge Problem: Incarcerated hiatal hernia, Gallstones, RUQ pain Patient Disposition: Admitted As Inpatient Discharge Instructions Interventions: ED Discharge Assessment Last Done: 07/09/19 03:10 The scribe's documentation has been prepared under my direction and personally reviewed by me in its entirety. I confirm that the note above accurately reflects all work, treatment, procedures, and medical decision making performed by me.
[2019-07-10] MEDS: D5W AND 1/2NSS 1,000 ML IV SCH (01:55)
[2019-07-10 07:24] LABS: Albumin Globulin Ratio 1.1 (0.9-2); Albumin Level 3.1 gm/dl (3.4-5.0); BUN Creatinine Ratio 14.4 (10-20); Bilirubin,Total 0.4 mg/dl (0.2-1); Calcium 8.1 mg/dl (8.5-10.1); Creatinine Clr Calc Pharmacy 89.5 ml/min; Est GFR (African American) 109.3; Est GFR (Non-African American) 94.3; Globulin 2.7 gm/dl (2.5-4.0); Potassium 3.6 mmol/L (3.5-5.1); Total Protein 5.8 gm/dl (6.4-8.2)
[2019-07-10] MEDS: CARBAMAZEPINE 200 MG TABCR PO SCH ×2 (08:03→20:41)
--- NOTE | 2019-07-10 10:06 | Surgery Progress Note ---
Date of Service July 10, 2019 Assessment & Plan (1) Incarcerated hiatal hernia: doing well. asymptomatic currently. as discussed previously, recommend d/c home. f/u with me in 2-3 weeks. signs/and symptoms of gastric volvulous discussed and when to report to ER. daughter and pt agreeable with plan. (2) Gallstones: Subjective feeling well. tolerated diet without issue. no pain currently. Physical Exam Physical Exam: alert. nad abd: soft. nt. nd. Results & Data Vital Signs (Past 12 Hours) Vital Signs Temp Pulse Resp BP BP Pulse Ox 07/10/19 07:52 83 15 126/79 94 07/09/19 23:16 36.8 C 96 H 17 112/67 92 PG Care Time/CCT Total # of Minutes Spent Total Time Spent with Patient: Total time spent is greater than 50% in coordination of care (as documented) at patient's floor/unit and/or counseling patient:
--- NOTE | 2019-07-10 11:30 | Hospitalist Progress Note ---
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 This does not result in a complete obstruction though a partial organoaxial volvulus is suspected -General surgery evaluated the patient in AM of 07/09/19. NG tube was removed. General surgery impression that clinically symptoms are not consistent with incarcerated hiatal hernia, and general surgery suggest that symptoms are from symptomatic gallstones as imaged on ultrasound "Gallstones without evidence of gallbladder distention, wall thickening, or pericholecystic fluid or inflammatory change." -HIDA scan was ordered by general surgery and HIDA scan result of "unobstructed common duct"; "No evidence of acute cholecystitis. Abnormal gallbladder ejection fraction consistent with chronic cholecystitis" -General surgery Dr. Dwight Ty discussed with patient that she is high risk for large paraesophageal surgery and their evaluations that symptoms were from gallbladder and that if abdominal symptoms return then they can consider cholecystectomy in the future. and that if patient tolerates diet, then she can follow up with general surgery on outpatient basis in 2 to 3 weeks -Patient allowed to have diet by general surgery starting 07/09/19 for dinner, since that time patient is tolerating the meals. no vomiting. abdomen exam on 07/10/19 with no tenderness on palpation of right upper quadrant. will continue to observe patient in the hospital to monitor if any acute events after meals large Paraesophageal Hiatal hernia Cholelithiasis Chronic cholecystitis -Management as above suspected urinary tract infection -Patient denies dysuria, but there is bacteria growing gram negative bacilli from urine cultures. -start ceftriaxone 1 gram daily empirically History of epilepsy - Continue home dose carbamazepine by mouth Osteoarthritis osteoporosis with compression fracture of T10 -on CT chest there is Moderate to severe compression fracture of T10. This is age-indeterminate -patient able to ambulate on her own power -passed Physical therapy evaluation Deep venous thrombosis prophylaxis: sequential compression devices. Full Code Patient's daughter Angeles [phone] Subjective Patient allowed to have diet by general surgery starting 07/09/19 for dinner, since that time patient is tolerating the meals. no vomiting. abdomen exam on 07/10/19 with no tenderness on palpation of right upper quadrant. Patient denies dysuria, but there is bacteria growing gram negative bacilli from urine cultures. no dizziness. no headache. no shortness of breath. no chest pain. no palpitations Physical Exam Constitutional: comfortable Eyes: EOM intact bilaterally ENMT: external ear and nose normal, oropharynx normal Neck: normal visual inspection Respiratory: normal respiratory effort, lungs clear to auscultation Cardiovascular: Rate/Rhythm: regular rate and regular rhythm Gastrointestinal (Abdomen): normal bowel sounds, soft, nontender, no hepatosplenomegaly Musculoskeletal: no cyanosis or clubbing, extremities motor strength 5/5 Head/Neck/Chest: normocephalic and head atraumatic Neurologic: PERRL, EOMI, accommodation nl, no face palsy, no dysarthria CN's II-XI intact bilaterally Psychiatric: A+Ox3, euthymic affect Results & Data Vital Signs (Past 12 Hours) Vital Signs Pulse Resp BP Pulse Ox 07/10/19 07:52 83 15 126/79 94
[2019-07-10] MEDS ORDERED: cefTRIAXone SODIUM 1,000 MG in DEXTROSE 5% 50 ML IV STA (11:41)
[2019-07-10] MEDS: BIMATOPROST 0.01% OP SOLN 2.5 ML BTL OP SCH (20:42)
--- NOTE | 2019-07-11 07:46 | Surgery Progress Note ---
Date of Service July 11, 2019 Assessment & Plan (1) Incarcerated hiatal hernia: plans to monitor per Dr. Ty Present on Admission?: Yes (2) Gallstones: Doing well F/U with surgical team as outpatient discharge per medical team Subjective Patient did well with diet No pain Review of Systems Constitutional: no fever and no chills Cardiovascular: no chest pain and no dyspnea Gastrointestinal: no abdominal pain, no nausea, no vomiting and no dysphagia Musculoskeletal: no back pain Physical Exam Constitutional: WD/WN, vitals as above Neck: trachea midline Respiratory: normal respiratory effort, lungs clear to auscultation Cardiovascular: RRR, no murmur, no edema Gastrointestinal (Abdomen): normal bowel sounds, soft, nontender, no hepatosplenomegaly Skin: no rashes, warm and dry Results & Data Vital Signs (Past 12 Hours) Vital Signs Temp Pulse Resp BP BP Pulse Ox 07/11/19 07:21 36.7 C 76 16 102/64 95 07/10/19 23:20 37.1 C 72 17 105/64 95
--- NOTE | 2019-07-11 08:01 | Hospitalist Progress Note ---
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 This does not result in a complete obstruction though a partial organoaxial volvulus is suspected -General surgery evaluated the patient in AM of 07/09/19. NG tube was removed. General surgery impression that clinically symptoms are not consistent with incarcerated hiatal hernia, and general surgery suggest that symptoms are from symptomatic gallstones as imaged on ultrasound "Gallstones without evidence of gallbladder distention, wall thickening, or pericholecystic fluid or inflammatory change." -HIDA scan was ordered by general surgery and HIDA scan result of "unobstructed common duct"; "No evidence of acute cholecystitis. Abnormal gallbladder ejection fraction consistent with chronic cholecystitis" -General surgery Dr. Dwight Ty discussed with patient that she is high risk for large paraesophageal surgery and their evaluations that symptoms were from gallbladder and that if abdominal symptoms return then they can consider cholecystectomy in the future. and that if patient tolerates diet, then she can follow up with general surgery on outpatient basis in 2 to 3 weeks -Patient allowed to have diet by general surgery starting 07/09/19 for dinner, since that time patient is tolerating the meals. no vomiting. abdomen exam on 07/10/19 with no tenderness on palpation of right upper quadrant. -Patient continues to have no abdominal pain on 07/11/19 and tolerates the meals. Discharge instructions on 07/11/19 include Patient should try to take a low fat diet regularly when at home Patient should follow up with primary care doctor 07/17/2019 11:40 AM Provider Elvia Rodriguez MD Department General Internal Medicine [facility] Patient should make appointment to see Dr. Dwight Ty; Surgery; [address] [place] [address] , [place] [address] [phone] in 2 to 3 weeks large Paraesophageal Hiatal hernia Cholelithiasis Chronic cholecystitis -follow up management as above urinary tract infection from pansensitive Escherichia coli -Patient denies dysuria, but there is bacteria growing gram negative bacilli from urine cultures and was started on ceftriaxone 1 gram daily empirically on 07/10/19 Patient received ceftriaxone antibiotic on 07/10/19 and 07/11/19 for urinary tract infection from Escherichia coli. Patient can complete treatment of antibiotics with 500 mg twice a day amoxicillin-clavulanate for next 5 days History of epilepsy -no seizures in the hospital - Continue home dose carbamazepine by mouth Osteoarthritis osteoporosis with compression fracture of T10 -on CT chest there is Moderate to severe compression fracture of T10. This is age-indeterminate -patient able to ambulate on her own power -passed Physical therapy evaluation Deep venous thrombosis prophylaxis: sequential compression devices. Full Code Patient's daughter Angeles [phone] Discharge Diagnosis: right upper quadrant pain, large Paraesophageal Hiatal hernia, Cholelithiasis, Chronic cholecystitis, suspected urinary tract infection, Osteoarthritis/osteoporosis with compression fracture of T10, History of epilepsy,urinary tract infection from pansensitive Escherichia coli Subjective Continues to be able to tolerate the meals and with no abdominal pain. No abdominal pain on palpation of all quadrants of abdomen. no vomiting. no dizziness. no lightheadedness. no chest pain. no shortness of breath. discharge plans discussed with patient Physical Exam Constitutional: comfortable Eyes: EOM intact bilaterally ENMT: external ear and nose normal, oropharynx normal Neck: normal visual inspection Respiratory: normal respiratory effort, lungs clear to auscultation Cardiovascular: Rate/Rhythm: regular rate and regular rhythm Gastrointestinal (Abdomen): normal bowel sounds, soft, nontender, no hepatosplenomegaly Percussion/Palpation: abdomen soft Musculoskeletal: no cyanosis or clubbing, extremities motor strength 5/5 Head/Neck/Chest: normocephalic and head atraumatic Neurologic: PERRL, EOMI, accommodation nl, no face palsy, no dysarthria CN's II-XI intact bilaterally Psychiatric: A+Ox3, euthymic affect Results & Data Vital Signs (Past 12 Hours) Vital Signs Temp Pulse Resp BP BP Pulse Ox 07/11/19 07:21 36.7 C 76 16 102/64 95 07/10/19 23:20 37.1 C 72 17 105/64 95
--- NOTE | 2019-07-11 08:13 | Discharge Summary ---
Date of Service July 11, 2019 Admission HPI Per Admitting Provider CHIEF COMPLAINT: Abdominal pain. HISTORY OF PRESENT ILLNESS: A 74-year-old female with past medical history significant for multinodular goiter, osteoarthritis, osteoporosis, epilepsy, neuropathy, generalized anxiety disorder, history of leukocytosis, presents with right upper quadrant abdominal pain going on since last Saturday; however, today it got worse, about 9/10 in severity, radiating to the upper portion of the chest. No nausea, no vomiting. Moved her bowels in the morning, which was normal. No bloody stools or black stools. Currently, passing gas little bit. No fever, no chills, no cough, no headache, no blurred vision, no sore throat. Has chronic dry cough on and off. Normal bladder movements. No burning micturition. Has chronic lower extremity swelling that has not increased. No rash. Currently living with her daughter, walks with help of a cane. In the ER, imaging studies, possible gastric volvulus, surgery was consulted. The patient is status post NG-tube, as per ER surgery is going to see in the morning and decide for further plan. ALLERGIES: BEE VENOM. PAST MEDICAL HISTORY: As mentioned above. PAST SURGICAL HISTORY: Repair of the elbow. MEDICATIONS: The patient is on vitamin C 1000 mcg p.o. daily, Tegretol-XR 400 mg p.o. b.i.d., Lumigan ophthalmic eyedrops in p.m., B complex with vitamin C tablet daily, Turmeric 500 mg p.o. daily, Centrum Silver 1 tablet daily. FAMILY HISTORY: Significant for: Daughter has breast cancer. Mother had CAD. Father had emphysema. Mother had uterine cancer. SOCIAL HISTORY: , currently living with her daughter. No smoking, alcohol rarely. No drug use. REVIEW OF SYMPTOMS: As per HPI. Rest of review of systems is negative. Admission Exam Per Admitting Provider PHYSICAL EXAMINATION: GENERAL: The patient is of moderate build, not in acute distress. VITAL SIGNS: Temperature 36.5, pulse 110, respiratory rate 16, blood pressure 124/82, oxygen 94% on room air. HEENT: No pallor, no icterus. Pupils equal, round, reactive to light. NG tube seen. Oral mucosa moist. NECK: No JVD, no neck masses, no carotid bruits. CARDIOVASCULAR: S1, S2 heard. Tachycardia. No murmurs. RESPIRATORY SYSTEM: Normal AP diameter. No accessory muscle use. No wheezing, no crackles. ABDOMEN: Soft. Bowel sounds, very sluggish. Nontender. No guarding, no rigidity. No distention. CENTRAL NERVOUS SYSTEM: Nonfocal. EXTREMITIES: No edema, no erythema. Principal Diagnosis right upper quadrant pain, large Paraesophageal Hiatal hernia, Cholelithiasis, Chronic cholecystitis, suspected urinary tract infection, Osteoarthritis/osteoporosis with compression fracture of T10, History of epilepsy,urinary tract infection from pansensitive Escherichia coli Discharge Exam Constitutional comfortable Eyes EOM intact bilaterally ENMT external ear and nose normal, oropharynx normal Neck normal visual inspection Respiratory normal respiratory effort, lungs clear to auscultation Cardiovascular Rate/Rhythm: regular rate and regular rhythm Gastrointestinal (Abdomen) normal bowel sounds, soft, nontender, no hepatosplenomegaly Percussion/Palpation: abdomen soft Musculoskeletal no cyanosis or clubbing, extremities motor strength 5/5 Head/Neck/Chest: normocephalic and head atraumatic Neurologic PERRL, EOMI, accommodation nl, no face palsy, no dysarthria CN's II-XI intact bilaterally Psychiatric A+Ox3, euthymic affect Discharge Data Allergies Allergy/AdvReac Type Severity Reaction Status Date / Time No Known Allergies Allergy Unverified 07/08/19 23:04 Consultations 07/09/19 01:41 ED Decision to Admit Stat 07/09/19 03:31 Consult Case Management - Discharge Planning Routine 07/09/19 04:40 Consult General Surgery Routine Ordered Studies 07/08/19 22:02 CT abd pelvis IV con only Urgent US gallbladder Urgent 07/09/19 00:52 CT chest wo con Urgent Hospital Course (1) RUQ pain: -Patient presents with right upper quadrant pain -In the ED, patient was found on CT scan to have "Large hiatal hernia with an thoracic stomach" on abdominal CT scan and initially nasogastric tube was placed and admitting hospitalist [facility] general surgery consult for concern of possible gastric volvulus or incarcerated hiatal hernia -CT chest of Organoaxial rotation of the stomach with a large paraesophageal hernia. This does not result in a complete obstruction though a partial organoaxial volvulus is suspected -General surgery evaluated the patient in AM of 07/09/19. NG tube was removed. General surgery impression that clinically symptoms are not consistent with incarcerated hiatal hernia, and general surgery suggest that symptoms are from symptomatic gallstones as imaged on ultrasound "Gallstones without evidence of gallbladder distention, wall thickening, or pericholecystic fluid or inflammatory change." -HIDA scan was ordered by general surgery and HIDA scan result of "unobstructed common duct"; "No evidence of acute cholecystitis. Abnormal gallbladder ejection fraction consistent with chronic cholecystitis" -General surgery Dr. Dwight Ty discussed with patient that she is high risk for large paraesophageal surgery and their evaluations that symptoms were from gallbladder and that if abdominal symptoms return then they can consider cholecystectomy in the future. and that if patient tolerates diet, then she can follow up with general surgery on outpatient basis in 2 to 3 weeks -Patient allowed to have diet by general surgery starting 07/09/19 for dinner, since that time patient is tolerating the meals. no vomiting. abdomen exam on 07/10/19 with no tenderness on palpation of right upper quadrant. -Patient continues to have no abdominal pain on 07/11/19 and tolerates the meals. Discharge instructions on 07/11/19 include Patient should try to take a low fat diet regularly when at home Patient should follow up with primary care doctor 07/17/2019 11:40 AM Provider Elvia Rodriguez MD Department General Internal Medicine [facility] Patient should make appointment to see Dr. Dwight Ty; Surgery; [address] [place] [address] [place] [address] [phone] in 2 to 3 weeks large Paraesophageal Hiatal hernia Cholelithiasis Chronic cholecystitis -follow up management as above urinary tract infection from pansensitive Escherichia coli -Patient denies dysuria, but there is bacteria growing gram negative bacilli from urine cultures and was started on ceftriaxone 1 gram daily empirically on 07/10/19 Patient received ceftriaxone antibiotic on 07/10/19 and 07/11/19 for urinary tract infection from Escherichia coli. Patient can complete treatment of antibiotics with 500 mg twice a day amoxicillin-clavulanate for next 5 days History of epilepsy -no seizures in the hospital - Continue home dose carbamazepine by mouth Osteoarthritis osteoporosis with compression fracture of T10 -on CT chest there is Moderate to severe compression fracture of T10. This is age-indeterminate -patient able to ambulate on her own power -passed Physical therapy evaluation Deep venous thrombosis prophylaxis: sequential compression devices. Full Code Patient's daughter Angeles [phone] Discharge Diagnosis: right upper quadrant pain, large Paraesophageal Hiatal hernia, Cholelithiasis, Chronic cholecystitis, suspected urinary tract infection, Osteoarthritis/osteoporosis with compression fracture of T10, History of epilepsy,urinary tract infection from pansensitive Escherichia coli Total Time Total Time Spent Total Time Spent (In Minutes): 40 minutes Total Time Includes: Examination of the Patient, Discharge Planning, Medication Reconciliation and Communication With Other Providers Discharge Plan Discharge Items Patient Disposition: Home - Self-Care Reason For Visit: ABDOMINAL PAIN Discharge Diagnosis: right upper quadrant pain, large Paraesophageal Hiatal hernia, Cholelithiasis, Chronic cholecystitis, suspected urinary tract infection, Osteoarthritis/osteoporosis with compression fracture of T10, History of epilepsy,urinary tract infection from pansensitive Escherichia coli Condition on Discharge: Good Activity: Resume your previous activity Non-emergency contact: Primary Care Provider and Surgeon Call non-emergency contact if: you have any medication questions Follow-up/Referrals: Dwight Ty, [Surgeon] - (Please follow up in clinic within 2 weeks for a follow up. If you have any questions/concerns you may call the office sooner. ) Elvia Rodriguez MD [Primary Care Provider] - Diet: Low Fat Addtl Attending Provider Instructions: Patient should try to take a low fat diet regularly when at home Patient should follow up with primary care doctor 07/17/2019 11:40 AM Provider Elvia Rodriguez MD Department General Internal Medicine [facility] General surgery Dr. Dwight Ty discussed with patient that she is high risk for large paraesophageal surgery and their evaluations that symptoms were from gallbladder and that if abdominal symptoms return then they can consider cholecystectomy in the future. and that as long as patient tolerates diet, then she can follow up with general surgery on outpatient basis in 2 to 3 weeks Patient should make appointment to see Dr. Dwight Ty; Surgery; [address] [place] [address], [place] [address] [phone] Patient received ceftriaxone antibiotic on 07/10/19 and 07/11/19 for urinary tract infection from Escherichia coli. Patient can complete treatment of antibiotics with 500 mg twice a day amoxicillin-clavulanate for next 5 days -on CT chest there is Moderate to severe compression fracture of T10. This is age-indeterminate -patient able to ambulate on her own power -passed Physical therapy evaluation Pending Studies at Discharge: No Stand-Alone Forms: My [facility] Medications and DC Order Prescriptions: New amoxicillin-pot clavulanate 500-125 mg tablet 1 tab PO BID 5 Days Qty: 10 RF: 0 Continued Lumigan 0.01 % Drops 1 drp OPHTHALMIC (EYE) PM RF: 0 carbamazepine 400 mg Tablet Extended Release 12 Hr 400 mg PO BID RF: 0 B-complex with vitamin C [Super B Complex-Vitamin C] Tablet 1 tab PO DAILY RF: 0 Turmeric Capsule 500 mg PO DAILY RF: 0 Centrum Silver 400-250 mcg Tablet,Chewable 1 tab PO DAILY RF: 0 Calcium 600 + D(3) 600 mg calcium- 200 unit Capsule 1 cap PO DAILY RF: 0 Discharge Orders: Discharge Order (Routine); Ordered 07/11/19 Ordered By: Bethel Zhu Admission Data Admit Date/Time: 07/09/19 02:36 Attending Provider: Bethel Zhu Admit Provider: Dmitriy Lora Primary Care Provider: Elvia Rodriguez Other Providers: Dmitriy Lora ; Dwight Ty
[2019-07-11] MEDS: CARBAMAZEPINE 200 MG TABCR PO SCH (08:52)
[2019-07-11] MEDS ORDERED: cefTRIAXone SODIUM 1,000 MG in DEXTROSE 5% 50 ML IV SCH (09:00)
== END 2019-07-11 12:55 | disposition home or self-care (01) | DRG 392 ==
LOC: ED 21:49 → 3N 07-09 02:36

== ENCOUNTER 2020-01-30 19:19 | Observation (INO) ==
[2020-01-30 19:39] LABS: Basophils # (auto) 0.04 K/uL (0-0.2); Basophils % (auto) 0.4 %; Eosinophils # (auto) 0.34 K/uL (0-0.5); Eosinophils % (auto) 3.5 %; Hematocrit (blood only) 41.4 % (37-47); Hemoglobin 14.2 g/dL (12.0-16.0); Immature Granulocytes # (auto) 0.01 K/uL (0.00-0.02); Immature Granulocytes % (auto) 0.1 %; Lymphocytes # (auto) 4.62 K/uL (1.2-3.4); Lymphocytes % (auto) 47.6 %; Mean Corpuscular Hemoglobin 32.4 pg (25-34); Mean Corpuscular Hgb Conc 34.3 g/dL (32-36); Mean Corpuscular Volume 94.5 fL (80-100); Mean Platelet Volume 9.5 fL (7.4-10.4); Monocytes # (auto) 0.92 K/uL (0.11-0.59); Monocytes % (auto) 9.5 %; Neutrophils # (auto) 3.77 K/uL (1.4-6.5); Neutrophils % (auto) 38.9 %; Platelet Count 252 K/uL (130-400); RDW Coefficient of Variation 12.7 % (11.5-14.5); RDW Standard Deviation 43.8 fL (36.4-46.3); Red Blood Count 4.38 M/uL (4.2-5.4)
[2020-01-30] MEDS ORDERED: SODIUM CHLORIDE 0.9% 1000ML 1,000 ML IV SCH (19:45)
[2020-01-30 19:54] LABS: Alanine Aminotransferase 23 U/L (12-78); Albumin Level 3.7 gm/dl (3.4-5.0); Aspartate Aminotransferase 18 U/L (15-37); BUN Creatinine Ratio 24.3 (10-20); Blood Urea Nitrogen 18 mg/dl (7-18); Calcium 9.2 mg/dl (8.5-10.1); Carbon Dioxide 30 mmol/L (21-32); Chloride 108 mmol/L (98-107); Creatinine Clr Calc Pharmacy 65.7 ml/min; Est GFR (African American) 92.3; Est GFR (Non-African American) 79.6; Glucose 101 mg/dl (70-99); Potassium 3.9 mmol/L (3.5-5.1); Sodium 142 mmol/L (136-145)
--- NOTE | 2020-01-30 19:58 | Emergency Department Note ---
History of Present Illness General Chief complaint: Fall Stated complaint: fall/ facial injury Time Seen by Provider: 01/30/20 19:22 Source: patient, EMS, RN notes reviewed and old records reviewed Mode of arrival: EMS Limitations: no limitations History of Present Illness Provider complaint: fall Onset (ago): hour(s) 1 Location: head Radiation: non-radiation Current Pain Intensity: 0 Treatments prior to arrival: none This is a 74-year-old female who presents the emergency department complaining of generalized weakness that has increased over the past several days. The patient reports she felt so weak tonight that she was bending over to change her opal litter when she fell to the ground and struck her head on a garbage can. She did not lose consciousness however she feels too weak to walk. The patient has been sheltering at home with her family. No one has been leaving the house except for groceries and "other things". The patient has no other complaints. She denies any chest or abdominal pain. Home Medications Home Medications Medication Instructions Recorded Confirmed Type B-complex with vitamin C [Super B 1 tab PO QAM 07/08/19 01/30/20 History Complex-Vitamin C] Calcium 600 + D(3) 1 cap PO BID 07/08/19 01/30/20 History Lumigan 1 drp OPHTHALMIC (EYE) PM 07/08/19 01/30/20 History carbamazepine 400 mg PO BID 07/08/19 01/30/20 History Centrum Silver Women 1 tab PO QAM 07/24/19 01/30/20 History glucosamine-chondroitin [Osteo 1 tab PO BID 07/24/19 01/30/20 History Bi-Flex] turmeric 400 mg PO QAM 07/24/19 01/30/20 History ascorbic acid (vitamin C) [Vitamin 500 mg PO HS 08/06/19 01/30/20 History C] Allergies Allergy/AdvReac Type Severity Reaction Status Date / Time No Known Allergies Allergy Verified 01/30/20 19:59 Past Med/Surg History Medical History Arthritis Diverticular disease Glaucoma b/l Hiatal hernia Hx of basal cell carcinoma s/p excision Osteoporosis Seizure Hx epilepsy- no seizure x years Surgical History History of elbow surgery RIGHT Hx laparoscopic cholecystectomy (08/06/19) Laparoscopic Cholecystectomy Dr. Ty 08/06/19 Hx of basal cell carcinoma excision Family History Daughter Breast cancer Social History Preferred Language: Occitan Communication Ability: Effective Programs Assistant Required: No Beliefs That Will Affect Care: None marital status: Current Living Situation: Family Current Living Situation Comment: Daughter current occupational status: retired Feels Safe at Home: Yes Smoking Status: Never smoker Second Hand Exposure: No ; Hx Alcohol Use: Yes Alcohol type: wine and hard liquor Hx Substance Use: No Review of Systems A total of 10 systems reviewed and were otherwise negative Physical Exam Vital Signs Vital Signs - 24 hr 01/30/20 19:24 01/30/20 19:30 01/30/20 19:31 Temperature 36.5 C Temperature Source Oral Pulse Rate 94 H 93 H 97 H Pulse Rate [Right Radial] Pulse Rate from SpO2 Sensor Respiratory Rate 23 20 24 Respiratory Effort / Characteristics Non-Labored Respiratory Depth Normal Respiratory Pattern Regular Blood Pressure 153/86 H 129/82 153/86 H Blood Pressure Mean 112 93 108 Pulse Oximetry 95 Oxygen Delivery Method Room Air Sepsis Recent Fever Within 48 Hours No Sepsis New/Unexplained Change in Mental Status No Sepsis Action Taken by Nursing No Action Required 01/30/20 19:32 01/30/20 20:00 01/30/20 20:30 Temperature Temperature Source Pulse Rate 97 H 96 H Pulse Rate [Right Radial] Pulse Rate from SpO2 Sensor 97 H 96 H Respiratory Rate 17 16 Respiratory Effort / Characteristics Respiratory Depth Respiratory Pattern Blood Pressure 150/80 H 153/90 H Blood Pressure Mean 106 106 Pulse Oximetry 98 96 Oxygen Delivery Method Room Air Room Air Room Air Sepsis Recent Fever Within 48 Hours Sepsis New/Unexplained Change in Mental Status Sepsis Action Taken by Nursing 01/30/20 21:00 01/30/20 21:34 01/30/20 22:15 Temperature Temperature Source Pulse Rate 101 H 105 H Pulse Rate [Right Radial] 100 H Pulse Rate from SpO2 Sensor 100 H 105 H Respiratory Rate 17 22 24 Respiratory Effort / Characteristics Non-Labored Spontaneous Respiratory Depth Respiratory Pattern Blood Pressure 144/85 H 157/87 H Blood Pressure Mean 94 111 Pulse Oximetry 95 96 95 Oxygen Delivery Method Room Air Room Air Room Air Sepsis Recent Fever Within 48 Hours Sepsis New/Unexplained Change in Mental Status Sepsis Action Taken by Nursing GENERAL: Patient is a healthy-appearing well-nourished female HEAD: Normocephalic atraumatic EYES: Ocular movements intact pupils equal and react to light OROPHARYNX mucous membranes are moist no exudates present no erythema or edema present NECK: Supple no nuchal rigidity CHEST: Good equal expansion LUNGS: Clear and equal to auscultation CARDIAC: Normal S1 and S2 ABDOMEN: Soft nontender no guarding BACK: No CVA tenderness EXTREMITIES: No pain upon palpation normal muscle strength in all groups no clubbing cyanosis or edema NEURO: Patient is following commands is answering questions appropriately. Alert and oriented x3 Cranial Nerves 2-12 grossly intact Course Administered Medications Discontinued Medications Albuterol (Duoneb) 3 ml NEB NOW STA Stop: 01/30/20 21:28 Last Admin: 01/30/20 22:14 Dose: 3 ml Documented by: [id number] Sodium Chloride (Nss 1000ml) 1,000 mls @ 999 mls/hr IV .Q1H1M JUAN FRANCISCO Stop: 01/30/20 20:45 Last Infusion: 01/30/20 21:01 Dose: 0 mls/hr Documented by: [id number] Admin: 01/30/20 19:39 Dose: 999 mls/hr Documented by: [id number] Ceftriaxone Sodium (Rocephin) 2,000 mg in 70 mls @ 140 mls/hr IV NOW STA Stop: 01/30/20 21:20 Last Infusion: 01/30/20 22:00 Dose: 0 mls/hr Documented by: [id number] Admin: 01/30/20 21:30 Dose: 140 mls/hr Documented by: [id number] Levofloxacin/Dextrose (Levaquin/D5w) 750 mg in 150 mls @ 100 mls/hr IV NOW STA Stop: 01/30/20 22:30 Last Admin: 01/30/20 22:18 Dose: Not Given Documented by: [id number] Medical Decision Making Differential Diagnosis Infection, dehydration, metabolic abnormality, hypo/hyperglycemia, electrolyte disturbance, anemia, hypoxia, cardiac sources, intracerebral event, toxicologic, neurologic, as well as other pathologies. Medical Records Attestation: I reviewed the patient's medical records. Home Medications Current Medication List: was personally reviewed by me Laboratory Data Attestation: I reviewed the patient's lab results. Result diagrams: 01/30/20 18:49 01/30/20 18:49 Lab Results 01/30/20 01/30/20 01/30/20 Range/Units 18:49 18:49 18:49 WBC 9.70 (4.8-10.8) K/uL RBC 4.38 (4.2-5.4) M/uL Hgb 14.2 (12.0-16.0) g/dL Hct 41.4 (37-47) % MCV 94.5 (80-100) fL MCH 32.4 (25-34) pg MCHC 34.3 (32-36) g/dL RDW Std Deviation 43.8 (36.4-46.3) fL RDW Coeff of Bhavesh 12.7 (11.5-14.5) % Plt Count 252 (130-400) K/uL MPV 9.5 (7.4-10.4) fL Immature Gran % (Auto) 0.1 % Neut % (Auto) 38.9 % Lymph % (Auto) 47.6 % [place] % (Auto) 9.5 % Eos % (Auto) 3.5 % Baso % (Auto) 0.4 % Immature Gran # (Auto) 0.01 (0.00-0.02) K/uL Neut # (Auto) 3.77 (1.4-6.5) K/uL Lymph # (Auto) 4.62 H (1.2-3.4) K/uL [place] # (Auto) 0.92 H (0.11-0.59) K/uL Eos # (Auto) 0.34 (0-0.5) K/uL Baso # (Auto) 0.04 (0-0.2) K/uL Sodium 142 (136-145) mmol/L Potassium 3.9 (3.5-5.1) mmol/L Chloride 108 H (98-107) mmol/L Carbon Dioxide 30 (21-32) mmol/L Anion Gap 4.0 (3-11) BUN 18 (7-18) mg/dl Creatinine 0.75 (0.6-1.2) mg/dl Est Cr Clr Drug Dosing 65.7 ml/min Est GFR ( Amer) 92.3 Est GFR (Non-Af Amer) 79.6 BUN/Creatinine Ratio 24.3 H (10-20) Glucose 101 H (70-99) mg/dl Calcium 9.2 (8.5-10.1) mg/dl Magnesium 2.2 (1.8-2.4) mg/dl Total Bilirubin 0.3 (0.2-1) mg/dl AST 18 (15-37) U/L ALT 23 (12-78) U/L Alkaline Phosphatase 120 H (45-117) U/L Total Creatine Kinase 45 (26-192) U/L CK-MB (CK-2) < 1.0 (0.5-3.6) ng/ml CK/CKMB % Calc TNP Troponin I < 0.015 (0-0.045) ng/ml NT-Pro-B Natriuret Pep 71 (0-900) pg/ml Total Protein 6.5 (6.4-8.2) gm/dl Albumin 3.7 (3.4-5.0) gm/dl Globulin 2.8 (2.5-4.0) gm/dl Albumin/Globulin Ratio 1.3 (0.9-2) TSH 0.355 (0.300-4.500) uIu/ml Urine Color Urine Appearance (Clear) Urine pH (4.5-7.5) Ur Specific [place] (1.000-1.030) Urine Protein (Negative) Urine Glucose (UA) (Negative) Urine Ketones (Negative) Urine Blood (Negative) Urine Nitrite (Negative) Urine Bilirubin (Negative) Urine Urobilinogen (Negative) Ur Leukocyte Esterase (Negative) Urine WBC (Auto) (0-5) /hpf Urine RBC (Auto) (0-4) /hpf U Hyaline Cast (Auto) (0-5) /lpf U Epithel Cells (Auto) (0-5) /lpf Urine Bacteria (Auto) (Negative) Carbamazepine (4-12) mcg/ml Influenza Type A (PCR) (Neg) Influenza Type B (PCR) (Neg) 01/30/20 01/30/20 01/30/20 Range/Units 20:15 21:30 21:34 WBC (4.8-10.8) K/uL RBC (4.2-5.4) M/uL Hgb (12.0-16.0) g/dL Hct (37-47) % MCV (80-100) fL MCH (25-34) pg MCHC (32-36) g/dL RDW Std Deviation (36.4-46.3) fL RDW Coeff of Bhavesh (11.5-14.5) % Plt Count (130-400) K/uL MPV (7.4-10.4) fL Immature Gran % (Auto) % Neut % (Auto) % Lymph % (Auto) % [place] % (Auto) % Eos % (Auto) % Baso % (Auto) % Immature Gran # (Auto) (0.00-0.02) K/uL Neut # (Auto) (1.4-6.5) K/uL Lymph # (Auto) (1.2-3.4) K/uL [place] # (Auto) (0.11-0.59) K/uL Eos # (Auto) (0-0.5) K/uL Baso # (Auto) (0-0.2) K/uL Sodium (136-145) mmol/L Potassium (3.5-5.1) mmol/L Chloride (98-107) mmol/L Carbon Dioxide (21-32) mmol/L Anion Gap (3-11) BUN (7-18) mg/dl Creatinine (0.6-1.2) mg/dl Est Cr Clr Drug Dosing ml/min Est GFR ( Amer) Est GFR (Non-Af Amer) BUN/Creatinine Ratio (10-20) Glucose (70-99) mg/dl Calcium (8.5-10.1) mg/dl Magnesium (1.8-2.4) mg/dl Total Bilirubin (0.2-1) mg/dl AST (15-37) U/L ALT (12-78) U/L Alkaline Phosphatase (45-117) U/L Total Creatine Kinase (26-192) U/L CK-MB (CK-2) (0.5-3.6) ng/ml CK/CKMB % Calc Troponin I (0-0.045) ng/ml NT-Pro-B Natriuret Pep (0-900) pg/ml Total Protein (6.4-8.2) gm/dl Albumin (3.4-5.0) gm/dl Globulin (2.5-4.0) gm/dl Albumin/Globulin Ratio (0.9-2) TSH (0.300-4.500) uIu/ml Urine Color Dark Yellow Urine Appearance Clear (Clear) Urine pH 7.0 (4.5-7.5) Ur Specific [place] 1.020 (1.000-1.030) Urine Protein Negative (Negative) Urine Glucose (UA) Negative (Negative) Urine Ketones Negative (Negative) Urine Blood Negative (Negative) Urine Nitrite Negative (Negative) Urine Bilirubin Negative (Negative) Urine Urobilinogen Negative (Negative) Ur Leukocyte Esterase Trace H (Negative) Urine WBC (Auto) 1-5 (0-5) /hpf Urine RBC (Auto) 0-4 (0-4) /hpf U Hyaline Cast (Auto) 1-5 (0-5) /lpf U Epithel Cells (Auto) 10-20 H (0-5) /lpf Urine Bacteria (Auto) Negative (Negative) Carbamazepine 11.0 (4-12) mcg/ml Influenza Type A (PCR) Neg for Influ A (Neg) Influenza Type B (PCR) Neg for Influ B (Neg) Imaging Data Attestation: I personally reviewed and interpreted this imaging study as follows: Radiologist's Impression: [place] [phone] CT Scan Report Patient: RICKY ANDREA Admit Date: 01/30/20 MR#: [id number] Address1: [address] [place] [address] Acct ID:[id number] Address2: Date: 1945 [facility] Zip: [place] [address] Age: 74 Location: ED Sex: F Room/Bed: Att Phy: Diagnosis: fall/ facial injury Kelly Phy: Elvia Rodriguez MD Service Date: 01/30/20 [facility] Phy: Elvia Rodriguez MD Interpreting Phy: Sulaiman Torres Admit Phy: Ordering Phy: Jay Payan MD cc: ~ CT head/brain wo con CLINICAL HISTORY: 74 years-old Female with pt c/o fall, hit head. Acute head and facial trauma status post fall TECHNIQUE: Multiple axial CT images of the head were obtained without contrast. A dose lowering technique was utilized adhering to the principles of ALARA. CT DOSE: 537.48 mGy.cm COMPARISON: None. FINDINGS: No acute intracranial hemorrhage, midline shift, intracranial mass, hy drocephalus, territorial ischemia or abnormal extra-axial collection. Mild age- related involutional changes. Patchy white matter hypodensities suggest chronic microvascular ischemic disease. Cerebral vascular calcifications. The calvarium is intact. The paranasal sinuses, mastoid air cells, and middle ear cavities are clear. IMPRESSION: No acute intracranial abnormality or calvarial fracture. ACT 112: Negative or not required by law. The above report was generated using voice recognition software. It may contain grammatical, syntax or spelling errors. Electronically signed by: Roddy Torres M.D. 01/30/2020 8:01 PM Dictated: 01/30/201958 Transcribed: 01/30/201958 [place], [place] [phone] XRay Report Patient: RICKY ANDREA Date: 01/30/20 MR#: [id number]: [id number] [facility] Acct ID:[id number]: Date: 1945[facility] Zip: [place] [address] Age: 74Location: ED Sex: F Room/Bed: Att Phy:Diagnosis: fall/ facial injury Kelly Phy: Elvia Rodriguez MDService Date: 01/30/20 Fam Phy: Elvia Rodriguez MDInterpreting Phy: Sulaiman Torres Admit Phy: Ordering Phy: Jay Payan MD cc: ~ XR chest 1V portable HISTORY: 74 years-old Female weakness acute weakness COMPARISON: Chest CT 07/09/2019 TECHNIQUE: Portable AP view of the chest FINDINGS: Cardiac silhouette is enlarged, unchanged. Large hiatal hernia. Mild right hemidiaphragmatic elevation. Pulmonary vascular congestion with ill-defined left midlung and bibasilar densities. Probable trace right pleural effusion. No pneumothorax. Degenerative changes of the shoulders and spine. The patient is rotated towards the left. IMPRESSION: 1. Cardiomegaly with pulmonary vascular congestion. 2. Bibasilar and left midlung airspace opacities are suspicious for pneumonitis. 3. Large hiatal hernia. ACT 112: Negative or not required by law. The above report was generated using voice recognition software. It may contain grammatical, syntax or spelling errors. Electronically signed by: Roddy Torres M.D. 01/30/2020 8:52 PM Dictated: 01/30/202049 Transcribed: 01/30/202049 ECG Data Attestation: I personally reviewed and interpreted this ECG as follows: Indication: + other (fever) Rate (beats per minute): 93 Rhythm: + sinus rhythm ECG Intervals/blocks: + Incomplete right bundle branch block and + Normal QT-c (450) ECG [place]: + Normal ECG ST segments: no ST depression and no ST elevation Comparison ECG Date: no prior available Blood Pressure Blood Pressure Findings: Elevated blood pressure Blood Pressure Disposition: elevated BP felt to be situational Head Trauma GCS Score: 15 MDM Narrative This is a 74-year-old female who presents the emergency department complaining of generalized weakness that has been ongoing for the past 3 days. Patient does not have an elevation in her white blood cell count however is slightly tachycardic. Her chest x-ray is concerning for multiple areas of pneumonitis. Based on this she was pancultured up and started on broad-spectrum antibiotics. I did discuss my findings with the patient's daughter who feels that the patient has had no sick contacts. In the meantime the patient was started on Rocephin a s well as Levaquin. I did discuss the case with the hospitalist service who did agree to admit the patient. Impression & Plan Weakness, Pneumonia Discharge Plan Visit Data Chief Complaint: Fall Stated Complaint: fall/ facial injury ED Provider: Jay Payan Discharge Problem: Weakness, Pneumonia Forms Stand Alone Forms: My [facility] Digg Prescriptions Prescriptions: No Action Lumigan 0.01 % Drops 1 drp OPHTHALMIC (EYE) PM RF: 0 carbamazepine 400 mg Tablet Extended Release 12 Hr 400 mg PO BID RF: 0 B-complex with vitamin C [Super B Complex-Vitamin C] Tablet 1 tab PO QAM RF: 0 Calcium 600 + D(3) 600 mg calcium- 200 unit Capsule 1 cap PO BID RF: 0 glucosamine-chondroitin [Osteo Bi-Flex] 250-200 mg Tablet 1 tab PO BID RF: 0 Centrum Silver Women 8 mg iron-400 mcg-300 mcg Tablet 1 tab PO QAM RF: 0 turmeric 400 mg Capsule 400 mg PO QAM RF: 0 ascorbic acid (vitamin C) [Vitamin C] 500 mg Tablet 500 mg PO HS RF: 0 Discharge Problem: Pneumonia Qualifiers: Pneumonia type: due to unspecified organism Laterality: unspecified laterality Lung location: unspecified part of lung Qualified Code(s): J18.9 - Pneumonia, unspecified organism
--- NOTE | 2020-01-30 20:02 | CT Scan Report ---
CT head/brain wo con CLINICAL HISTORY: 74 years-old Female with pt c/o fall, hit head. Acute head and facial trauma statu s post fall TECHNIQUE: Multiple axial CT images of the head were obtained without contrast. A dose lowering tech nique was utilized adhering to the principles of ALARA. CT DOSE: 537.48 mGy.cm COMPARISON: None. FINDINGS: No acute intracranial hemorrhage, midline shift, intracranial mass, hydrocephalus, territorial ischem ia or abnormal extra-axial collection. Mild age-related involutional changes. Patchy white matter hyp odensities suggest chronic microvascular ischemic disease. Cerebral vascular calcifications. The calvarium is intact. The paranasal sinuses, mastoid air cells, and middle ear cavities are clear . IMPRESSION: No acute intracranial abnormality or calvarial fracture. ACT 112: Negative or not required by law. The above report was generated using voice recognition software. It may contain grammatical, syntax o r spelling errors. Electronically signed by: Roddy Torres M.D. 01/30/2020 8:01 PM
[2020-01-30 20:05] LABS: Albumin Globulin Ratio 1.3 (0.9-2); Alkaline Phosphatase 120 U/L (45-117); Bilirubin,Total 0.3 mg/dl (0.2-1); Creatine Kinase 45 U/L (26-192); Creatine Kinase MB < 1.0 ng/ml (0.5-3.6); Globulin 2.8 gm/dl (2.5-4.0); Thyroid Stimulating Hormone 0.355 uIu/ml (0.300-4.500); Total Protein 6.5 gm/dl (6.4-8.2); Troponin I < 0.015 ng/ml (0-0.045)
[2020-01-30 20:35] LABS: Appearance Urine Clear (Clear); Bacteria Urine Automated Negative (Negative); Bilirubin Urine Negative (Negative); Blood Urine Negative (Negative); Color Urine Dark Yellow; Glucose Urine UA Negative (Negative); Ketones Urine Negative (Negative); Leukocyte Esterase Urine Trace (Negative); Nitrite Urine Negative (Negative); Protein Urine Negative (Negative); RBC Urine Automated 0-4 /hpf (0-4); Urobilinogen Urine Negative (Negative)
[2020-01-30] MEDS ORDERED: cefTRIAXone SODIUM 2,000 MG/70 ML BAG IV STA (20:51)
--- NOTE | 2020-01-30 20:54 | XRay Report ---
XR chest 1V portable HISTORY: 74 years-old Female weakness acute weakness COMPARISON: Chest CT 07/09/2019 TECHNIQUE: Portable AP view of the chest FINDINGS: Cardiac silhouette is enlarged, unchanged. Large hiatal hernia. Mild right hemidiaphragmatic elevatio n. Pulmonary vascular congestion with ill-defined left midlung and bibasilar densities. Probable trac e right pleural effusion. No pneumothorax. Degenerative changes of the shoulders and spine. The patie nt is rotated towards the left. IMPRESSION: 1. Cardiomegaly with pulmonary vascular congestion. 2. Bibasilar and left midlung airspace opacities are suspicious for pneumonitis. 3. Large hiatal hernia. ACT 112: Negative or not required by law. The above report was generated using voice recognition software. It may contain grammatical, syntax o r spelling errors. Electronically signed by: Roddy Torres M.D. 01/30/2020 8:52 PM
[2020-01-30] MEDS ORDERED: LEVOFLOXACIN/D5W 750 MG/150 ML BAG IV STA (21:01)
[2020-01-30] MEDS ORDERED: ALBUT/IPRATROP 3MG/0.5MG NEB 3 ML VIAL NEB STA (21:27)
[2020-01-30 21:41] LABS: Magnesium 2.2 mg/dl (1.8-2.4)
--- NOTE | 2020-01-30 22:07 | History & Physical Report ---
Date of Service January 30, 2020 Assessment & Plan (1) HTN (hypertension): With tachycardia Situational given fall and some discomfort from facial trauma Possibly chronic given cardiomegaly on CXR Possible viral illness (rapid COVID-19 test was negative) Seizure disorder, stable on home carbamazepine OBS Medical telemetry Initiate lisinopril if with persistent BP elevation. PT OT eval Home in a.m. if BP stable and patient feeling well. DVT prophylaxis. SCDs RE facial trauma Full code Text document was generated using [employer] voice recognition software. It may contain grammatical or spelling errors. Kindly contact undersigned for clarification of any documentation item in question. History of Present Illness Chief Complaint: fall, head trauma Primary Care Provider: Elvia Rodriguez MD History obtained from patient and records. Medical history significant for seizure disorder, anxiety disorder. Recent confinement June 2019 for abdominal pain attributed to chronic cholecystitis. Outpatient cholecystectomy subsequently done. Patient was bending over today to change her cats litter box when she noted dizziness/lightheadedness symptoms subsequently falling forward face flat without LOC. No chest pain, no S OB, no cough symptoms. Appetite not so good the last few days. Denies fluid retention. SBP reportedly 60s upon arrival of EMS. Patient brought to the ER for evaluation. Patient received IV Ceftriaxone at the ER for possible pneumonia. Medical History as above Surgical History : Elbow surgery, cholecystectomy Family History : Breast cancer, heart disease, COPD, uterine cancer Personal/Social history : Non-smoker, occasional EtOH intake, lives by self Allergies Allergy/AdvReac Type Severity Reaction Status Date / Time No Known Allergies Allergy Verified 01/30/20 19:59 Home Medications Home Medications Medication Instructions Recorded Confirmed Type B-complex with vitamin C [Super B 1 tab PO QAM 07/08/19 01/30/20 History Complex-Vitamin C] Calcium 600 + D(3) 1 cap PO BID 07/08/19 01/30/20 History Lumigan 1 drp OPHTHALMIC (EYE) PM 07/08/19 01/30/20 History carbamazepine 400 mg PO BID 07/08/19 01/30/20 History Centrum Silver Women 1 tab PO QAM 07/24/19 01/30/20 History glucosamine-chondroitin [Osteo 1 tab PO BID 07/24/19 01/30/20 History Bi-Flex] turmeric 400 mg PO QAM 07/24/19 01/30/20 History ascorbic acid (vitamin C) [Vitamin 500 mg PO HS 08/06/19 01/30/20 History C] Past Med/Surg History Medical History Arthritis Diverticular disease Glaucoma b/l Hiatal hernia Hx of basal cell carcinoma s/p excision Osteoporosis Seizure Hx epilepsy- no seizure x years Surgical History History of elbow surgery RIGHT Hx laparoscopic cholecystectomy (08/06/19) Laparoscopic Cholecystectomy Dr. 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 current occupational status: retired Other Information That Helps Us Care for You: No Feels Safe at Home: Yes Safety Concerns: Feels Safe At This Time Smoking Status: Never smoker Do You Dip or Chew Tobacco: No ; Second Hand Exposure: No ; Tobacco Cessation Education Requested by Patient: No Hx Alcohol Use: Yes Alcohol type: wine and hard liquor Hx Substance Use: No Review of Systems Review of Systems: As per HPI, all 10 systems reviewed, all other ROS negative Physical Exam Physical Exam: GENERAL: Comfortable, pleasant, slightly anxious, no respiratory distress SKIN: Normal color, warm HEENT: Forehead contusion, abrasion over the upper lip, pink palpebral conjunctivae, no ptosis, dry buccal mucosa NECK : Supple, no tenderness CHEST : CTA, no tenderness HEART : Tachycardic, no obvious murmurs ABDOMEN: Some distention, nontender EXTREMITIES : No LE swelling/tenderness, no other conspicuous deformities noted NEUROLOGIC : Coherent, no facial asymmetry, no other gross focality Results & Data Results & Data ([facility]) Vital Signs (Past 12 Hours) Vital Signs Temp Pulse Resp BP Pulse Ox 01/30/20 21:34 105 H 22 157/87 H 96 01/30/20 21:00 101 H 17 144/85 H 95 01/30/20 20:30 96 H 16 153/90 H 96 01/30/20 20:00 97 H 17 150/80 H 98 01/30/20 19:31 36.5 C 97 H 24 153/86 H 95 01/30/20 19:30 93 H 20 129/82 01/30/20 19:24 94 H 23 153/86 H Laboratory Results Laboratory Results WBC 9.70 K/uL (4.8-10.8) 01/30/20 18:49 RBC 4.38 M/uL (4.2-5.4) 01/30/20 18:49 Hgb 14.2 g/dL (12.0-16.0) 01/30/20 18:49 Hct 41.4 % (37-47) 01/30/20 18:49 MCV 94.5 fL (80-100) 01/30/20 18:49 MCH 32.4 pg (25-34) 01/30/20 18:49 MCHC 34.3 g/dL (32-36) 01/30/20 18:49 RDW Std Deviation 43.8 fL (36.4-46.3) 01/30/20 18:49 RDW Coeff of Bhavesh 12.7 % (11.5-14.5) 01/30/20 18:49 Plt Count 252 K/uL (130-400) 01/30/20 18:49 MPV 9.5 fL (7.4-10.4) 01/30/20 18:49 Immature Gran % (Auto) 0.1 % 01/30/20 18:49 Neut % (Auto) 38.9 % 01/30/20 18:49 Lymph % (Auto) 47.6 % 01/30/20 18:49 [place] % (Auto) 9.5 % 01/30/20 18:49 Eos % (Auto) 3.5 % 01/30/20 18:49 Baso % (Auto) 0.4 % 01/30/20 18:49 Immature Gran # (Auto) 0.01 K/uL (0.00-0.02) 01/30/20 18:49 Neut # (Auto) 3.77 K/uL (1.4-6.5) 01/30/20 18:49 Lymph # (Auto) 4.62 K/uL (1.2-3.4) H 01/30/20 18:49 [place] # (Auto) 0.92 K/uL (0.11-0.59) H 01/30/20 18:49 Eos # (Auto) 0.34 K/uL (0-0.5) 01/30/20 18:49 Baso # (Auto) 0.04 K/uL (0-0.2) 01/30/20 18:49 Sodium 142 mmol/L (136-145) 01/30/20 18:49 Potassium 3.9 mmol/L (3.5-5.1) 01/30/20 18:49 Chloride 108 mmol/L (98-107) H 01/30/20 18:49 Carbon Dioxide 30 mmol/L (21-32) 01/30/20 18:49 Anion Gap 4.0 (3-11) 01/30/20 18:49 BUN 18 mg/dl (7-18) 01/30/20 18:49 Creatinine 0.75 mg/dl (0.6-1.2) 01/30/20 18:49 Est Cr Clr Drug Dosing 65.7 ml/min 01/30/20 18:49 Est GFR ( Amer) 92.3 01/30/20 18:49 Est GFR (Non-Af Amer) 79.6 01/30/20 18:49 BUN/Creatinine Ratio 24.3 (10-20) H 01/30/20 18:49 Glucose 101 mg/dl (70-99) H 01/30/20 18:49 Calcium 9.2 mg/dl (8.5-10.1) 01/30/20 18:49 Magnesium 2.2 mg/dl (1.8-2.4) 01/30/20 18:49 Total Bilirubin 0.3 mg/dl (0.2-1) 01/30/20 18:49 AST 18 U/L (15-37) 01/30/20 18:49 ALT 23 U/L (12-78) 01/30/20 18:49 Alkaline Phosphatase 120 U/L (45-117) H 01/30/20 18:49 Total Creatine Kinase 45 U/L (26-192) 01/30/20 18:49 CK-MB (CK-2) < 1.0 ng/ml (0.5-3.6) 01/30/20 18:49 CK/CKMB % Calc TNP 01/30/20 18:49 Troponin I < 0.015 ng/ml (0-0.045) 01/30/20 18:49 NT-Pro-B Natriuret Pep 71 pg/ml (0-900) 01/30/20 18:49 Total Protein 6.5 gm/dl (6.4-8.2) 01/30/20 18:49 Albumin 3.7 gm/dl (3.4-5.0) 01/30/20 18:49 Globulin 2.8 gm/dl (2.5-4.0) 01/30/20 18:49 Albumin/Globulin Ratio 1.3 (0.9-2) 01/30/20 18:49 TSH 0.355 uIu/ml (0.300-4.500) 01/30/20 18:49 Urine Color Dark Yellow 01/30/20 20:15 Urine Appearance Clear (Clear) 01/30/20 20:15 Urine pH 7.0 (4.5-7.5) 01/30/20 20:15 Ur Specific [place] 1.020 (1.000-1.030) 01/30/20 20:15 Urine Protein Negative (Negative) 01/30/20 20:15 Urine Glucose (UA) Negative (Negative) 01/30/20 20:15 Urine Ketones Negative (Negative) 01/30/20 20:15 Urine Blood Negative (Negative) 01/30/20 20:15 Urine Nitrite Negative (Negative) 01/30/20 20:15 Urine Bilirubin Negative (Negative) 01/30/20 20:15 Urine Urobilinogen Negative (Negative) 01/30/20 20:15 Ur Leukocyte Esterase Trace (Negative) H 01/30/20 20:15 Urine WBC (Auto) 1-5 /hpf (0-5) 01/30/20 20:15 Urine RBC (Auto) 0-4 /hpf (0-4) 01/30/20 20:15 U Hyaline Cast (Auto) 1-5 /lpf (0-5) 01/30/20 20:15 U Epithel Cells (Auto) 10-20 /lpf (0-5) H 01/30/20 20:15 Urine Bacteria (Auto) Negative (Negative) 01/30/20 20:[address] head: No acute intracranial abnormality or calvarial fracture. Chest x-ray : 1. Cardiomegaly with pulmonary vascular congestion. 2. Bibasilar and left midlung airspace opacities are suspicious for pneumonitis. 3. Large hiatal hernia. EKG as per my interpretation : Rate 95, NSR, normal axis, incomplete RBBB, T wave abnormality septal leads
[2020-01-30 22:25] LABS: Influenza A virus by PCR Neg for Influ A (Neg); Influenza B virus by PCR Neg for Influ B (Neg)
[2020-01-30 22:45] LABS: Adenovirus PCR Not Detected (NotDetected); Bordetella parapertussis PCR Not Detected (NotDetected); Bordetella pertussis PCR Not Detected (NotDetected); Chlamydia pneumoniae PCR Not Detected (NotDetected); Coronavirus 229E PCR Not Detected (NotDetected); Coronavirus HKU1 PCR Not Detected (NotDetected); Coronavirus NL63 PCR Not Detected (NotDetected); Coronavirus OC43PCR Not Detected (NotDetected); Human Metapneumovirus PCR Not Detected (NotDetected); Influenza A PCR Not Detected (NotDetected); Influenza B PCR Not Detected (NotDetected); Mycoplasma pneumoniae PCR Not Detected (NotDetected); Parainfluenza Virus 1 PCR Not Detected (NotDetected); Parainfluenza Virus 2 PCR Not Detected (NotDetected); Parainfluenza Virus 3 PCR Not Detected (NotDetected); Parainfluenza Virus 4 PCR Not Detected (NotDetected); Respiratory Syncytial VirusPCR Not Detected (NotDetected); Rhinovirus/Enterovirus PCR Not Detected (NotDetected)
[2020-01-31] MEDS ORDERED: PROMETHAZINE HCL 12.5 MG in SODIUM CHLORIDE 0.9% 50 ML IV PRN (01:15)
[2020-01-31] MEDS ORDERED: OXYCODONE HCL IR 5 MG TAB (IMMEDIATE RELEASE) PO PRN (01:15)
[2020-01-31] MEDS ORDERED: XOPENEX/ATROVENT 1.25mg/0.5MG NEB COMBO NEB STA (01:15)
[2020-01-31] MEDS ORDERED: ACETAMINOPHEN 325 MG TAB PO PRN (01:15)
[2020-01-31] MEDS ORDERED: IPRATROPIUM BROMIDE NEB SOLN 0.02% 2.5 ML VIAL INH STA (01:28)
[2020-01-31] MEDS ORDERED: LEVALBUTEROL 1.25MG/0.5ML NEB INH STA (01:28)
[2020-01-31 05:24] LABS: Basophils # (auto) 0.04 K/uL (0-0.2); Basophils % (auto) 0.5 %; Eosinophils # (auto) 0.18 K/uL (0-0.5); Hematocrit (blood only) 38.1 % (37-47); Hemoglobin 12.9 g/dL (12.0-16.0); Immature Granulocytes # (auto) 0.01 K/uL (0.00-0.02); Immature Granulocytes % (auto) 0.1 %; Lymphocytes # (auto) 2.38 K/uL (1.2-3.4); Lymphocytes % (auto) 26.9 %; Mean Corpuscular Hemoglobin 31.9 pg (25-34); Mean Corpuscular Hgb Conc 33.9 g/dL (32-36); Mean Corpuscular Volume 94.3 fL (80-100); Mean Platelet Volume 9.2 fL (7.4-10.4); Monocytes # (auto) 0.95 K/uL (0.11-0.59); Monocytes % (auto) 10.7 %; Neutrophils % (auto) 59.8 %; Platelet Count 224 K/uL (130-400); RDW Coefficient of Variation 12.9 % (11.5-14.5); RDW Standard Deviation 44.4 fL (36.4-46.3); Red Blood Count 4.04 M/uL (4.2-5.4); White Blood Count 8.86 K/uL (4.8-10.8)
[2020-01-31 05:45] LABS: BUN Creatinine Ratio 24.6 (10-20); Calcium 8.6 mg/dl (8.5-10.1); Creatinine Clr Calc Pharmacy 85.4 ml/min; Est GFR (Non-African American) 93.2; Potassium 3.7 mmol/L (3.5-5.1)
[2020-01-31] MEDS ORDERED: CARBAMAZEPINE 200 MG TABCR PO SCH (09:00)
[2020-01-31] MEDS ORDERED: VITAMIN B COMPLEX TAB PO SCH (09:00)
--- NOTE | 2020-01-31 10:04 | Electrocardiogram Report ---
Test Reason : Blood Pressure : / mmHG Vent. Rate : 093 BPM Atrial Rate : 093 BPM P-R Int : 186 ms QRS Dur : 106 ms QT Int : 362 ms P-R-T Axes : 049 026 048 degrees QTc Int : 450 ms Poor data quality, interpretation may be adversely affected Normal sinus rhythm Incomplete right bundle branch block Borderline ECG No previous ECGs available Confirmed by Reji Beavers ([id number]) on 01/31/2020 10:04:16 AM Referred By: REFERRED SELF Confirmed By:Reji Beavers
--- NOTE | 2020-01-31 11:25 | Hospitalist Progress Note ---
Date of Service January 31, 2020 Assessment & Plan (1) HTN (hypertension): With tachycardia Situational given fall and some discomfort from facial trauma Possibly chronic given cardiomegaly on CXR On admission thought d/t possible viral illness (however Biofire respiratory panel and rapid COVID-19 test was negative) Concern by ED physician for possible pneumonitis/ pna however pt has no symptoms of pna - no fever, chills, cough, no sputum production, no shortness of breath, no hypoxia Received IV ceftriaxone in the ED, then Abx discontinued by first assist Pt admitted for observation After my exam today, agree with first assist, don't feel need for Abx Obtained procalcitonin - negative Pt ambulating without any difficulty, denies any dizziness or lightheadedness Sinus rhythm overnight on telemetry Troponin negative Blood culture, urine cultx - NGTD Pt received IVF in ED, pt may had orthostatic hypotension Recommend hydration at home, monitoring BP, close follow up with PCP Also recommend using incentive spirometry, pt had atelectasis on prior chest CT. Pt may need PT/OT. Recommend to watch for fever, chills, cough, shortness of breath, chest pain - if this would occur, advised pt and her family to seek medical attention. Seizure disorder - stable on home carbamazepine DVT prophylaxis. SCDs RE facial trauma Full code Admission and Anticipated Discharge Date Admission Date: January 30, 2020 Subjective No acute events overnight. Pt feels well and denies any complaints. Denies any hx of fevers, chills, cough, any sputum production, any chest pain. Currently also denies dizziness, lightheadedness. Says she feels much better since she's been in the hospital. She received IVF in ER and also IV ceftriaxone for possible pneumonia however pt denies any symptoms of pneumonia. She has been ambulating without any difficulty and without any complaints of dizziness. She is inquiring about going home. Says she lives in her daughter's house and there are several adults there who can watch her. Her family is currently working from home due to COVID19 pandemic. I called the patient's daughter and discussed this with her. She confirmed that pt would be monitored at home and that they can set up follow up appointment with PCP. I updated pt's daughter on pt's results - so far biofire resp. panel - negative, covid 19 - negative. urine cultx and blood cltx - pending. CXR concerning for possible pneumonitis however pt does not have any respiratory symptoms and so Abx were stopped by first assist/ admitting physician. I examined the pt and have to agree with first assist's decision, don't feel strongly about cont. Abx. I also obtained procalcitonin today which was negative. Recommend to use incentive spirometer, as pt had atelectasis on previous CT chest in June, also pt may need PT/OT. Recommend to to follow up closely with PCP and monitor BP. Also watch out for any new fever, shortness of breath, cough or chest pain. Review of Systems Review of Systems: All systems reviewed & are unremarkable except as noted in HPI & below Constitutional: no fever and no chills Respiratory: no cough and no dyspnea Cardiovascular: no chest pain, no palpitations and no edema Gastrointestinal: no abdominal pain and no vomiting Physical Exam Physical Exam: GENERAL: Elderly female sitting up in bed in [facility], breathing comfortably on room air HEENT: Forehead contusion, abrasion over the upper lip, pink palpebral conjunctivae, no ptosis, EOMI, PERRL NECK : Supple, no tenderness CHEST : Breathing comfortably on room air, no accessory muscle use, CTAB no wheezing, rhonchi, crackles HEART : RRR, no obvious murmurs ABDOMEN : posit. bowel sounds, nontender, nondistended EXTREMITIES : No LE swelling, moves extremities spontaneously SKIN: warm, dry, well perfused, no rashes or lesions NEUROLOGIC : alert and oriented x3, no facial asymmetry, speech fluent, moves extremities spontaneously Results & Data Results & Data ([facility]) Vital Signs (Past 12 Hours) Vital Signs Temp Pulse Pulse Resp BP BP Pulse Ox 01/31/20 11:09 36.7 C 80 18 132/78 97 01/31/20 07:22 82 01/31/20 07:20 36.9 C 79 18 119/70 95 01/31/20 04:04 36.8 C 95 H 20 110/69 96 01/31/20 02:20 92 H 18 96 01/31/20 01:21 36.6 C 96 H 18 155/84 H 94 01/31/20 00:42 103 H 01/30/20 23:30 36.8 C 101 H 17 128/78 95
--- NOTE | 2020-01-31 17:37 | Discharge Summary ---
Date of Service January 31, 2020 Admission HPI Per Admitting Provider History obtained from patient and records. Medical history significant for seizure disorder, anxiety disorder. Recent confinement June 2019 for abdominal pain attributed to chronic cholecystitis. Outpatient cholecystectomy subsequently done. Patient was bending over today to change her cats litter box when she noted dizziness/lightheadedness symptoms subsequently falling forward face flat without LOC. No chest pain, no S OB, no cough symptoms. Appetite not so good the last few days. Denies fluid retention. SBP reportedly 60s upon arrival of EMS. Patient brought to the ER for evaluation. Patient received IV Ceftriaxone at the ER for possible pneumonia. Medical History as above Surgical History : Elbow surgery, cholecystectomy Family History : Breast cancer, heart disease, COPD, uterine cancer Personal/Social history : Non-smoker, occasional EtOH intake, lives by self Admission Exam Per Admitting Provider GENERAL: Comfortable, pleasant, slightly anxious, no respiratory distress SKIN: Normal color, warm HEENT: Forehead contusion, abrasion over the upper lip, pink palpebral conjunctivae, no ptosis, dry buccal mucosa NECK : Supple, no tenderness CHEST : CTA, no tenderness HEART : Tachycardic, no obvious murmurs ABDOMEN: Some distention, nontender EXTREMITIES : No LE swelling/tenderness, no other conspicuous deformities noted NEUROLOGIC : Coherent, no facial asymmetry, no other gross focality Principal Diagnosis Weakness, and fall most likely secondary to orthostatic hypotension Discharge Exam GENERAL: Elderly female sitting up in bed in [facility], breathing comfortably on room air HEENT: Forehead contusion, abrasion over the upper lip, pink palpebral conjunctivae, no ptosis, EOMI, PERRL NECK : Supple, no tenderness CHEST : Breathing comfortably on room air, no accessory muscle use, CTAB no wheezing, rhonchi, crackles HEART : RRR, no obvious murmurs ABDOMEN : posit. bowel sounds, nontender, nondistended EXTREMITIES : No LE swelling, moves extremities spontaneously SKIN: warm, dry, well perfused, no rashes or lesions NEUROLOGIC : alert and oriented x3, no facial asymmetry, speech fluent, moves extremities spontaneously Discharge Data Allergies Allergy/AdvReac Type Severity Reaction Status Date / Time No Known Allergies Allergy Verified 01/30/20 19:59 Consultations 01/30/20 21:04 ED Decision to Admit Stat Ordered Studies 01/30/20 19:32 CT head/brain wo con Stat Hospital Course (1) HTN (hypertension): With tachycardia Situational given fall and some discomfort from facial trauma Possibly chronic given cardiomegaly on CXR On admission thought d/t possible viral illness (however Biofire respiratory panel and rapid COVID-19 test was negative) Concern by ED physician for possible pneumonitis/ pna however pt has no symptoms of pna - no fever, chills, cough, no sputum production, no shortness of breath, no hypoxia Received IV ceftriaxone in the ED, then Abx discontinued by plant mechanic Pt admitted for observation After my exam today, agree with plant mechanic, don't feel need for Abx Obtained procalcitonin - negative Pt ambulating without any difficulty, denies any dizziness or lightheadedness Sinus rhythm overnight on telemetry Troponin negative Blood culture, urine cultx - NGTD Pt received IVF in ED, pt may had orthostatic hypotension Recommend hydration at home, monitoring BP, close follow up with PCP Also recommend using incentive spirometry, pt had atelectasis on prior chest CT. Pt may need PT/OT. Recommend to watch for fever, chills, cough, shortness of breath, chest pain - if this would occur, advised pt and her family to seek medical attention. Total Time Total Time Spent Total Time Spent (In Minutes): 25 Total Time Includes: Examination of the Patient, Discharge Planning and Medication Reconciliation Discharge Plan Discharge Items Patient Disposition: Home - Self-Care Reason For Visit: TACHYCARDIA, FALL Discharge Diagnosis: Weakness, and fall most likely secondary to orthostatic hypotension Activity: As commented below Activity Comment: Recommend follow-up with PCP, and likely home PT /OT Non-emergency contact: Primary Care Provider Call non-emergency contact if: your symptoms worsen and you have a fever Follow-up/Referrals: Elvia Rodriguez MD [Primary Care Provider] - Diet: Heart Healthy Addtl Attending Provider Instructions: Recommend to follow-up with primary care doctor within a week. You may need home Physical and Occupational Therapy. Recommend to keep well hydrated. Monitor your blood pressure at home and keep a log of these numbers. Please let your primary care doctor review that log. Do not stand up too fast, and always hold onto something before changing position from laying down or sitting down to standing. If you feel lightheaded please make sure to sit down immediately and notify your family and primary care doctor. Recommend to use incentive spirometer, to prevent atelectasis. If you develop congestion, cough with some sputum production, you may add guaifenesin/Mucinex. If you develop fever, make sure to contact primary care doctor. If you develop shortness of breath, fever, chest pain, you should certainly contact primary care doctor or present into the emergency room. Pending Studies at Discharge: Yes Studies:: Blood culture, urine culture Stand-Alone Forms: [facility], Smoking Cessation Medications and DC Order Prescriptions: Continued Lumigan 0.01 % Drops 1 drp OPHTHALMIC (EYE) PM RF: 0 carbamazepine 400 mg Tablet Extended Release 12 Hr 400 mg PO BID RF: 0 B-complex with vitamin C [Super B Complex-Vitamin C] Tablet 1 tab PO QAM RF: 0 Calcium 600 + D(3) 600 mg calcium- 200 unit Capsule 1 cap PO BID RF: 0 glucosamine-chondroitin [Osteo Bi-Flex] 250-200 mg Tablet 1 tab PO BID RF: 0 Centrum Silver Women 8 mg iron-400 mcg-300 mcg Tablet 1 tab PO QAM RF: 0 turmeric 400 mg Capsule 400 mg PO QAM RF: 0 ascorbic acid (vitamin C) [Vitamin C] 500 mg Tablet 500 mg PO HS RF: 0 Discharge Orders: Discharge Order (Routine); Ordered 01/31/20 Ordered By: Enzo Owusu Admission Data Admit Date/Time: 01/30/20 21:59 Attending Provider: Enzo Owusu Admit Provider: Abran Bro Primary Care Provider: Elvia Rodriguez Other Providers: Abran Bro Other Interventions: Discharge Summary Assessment (RN) Last Done: 01/31/20 17:54 DC Date/Time DO NOT enter until pt leaves facility: 01/31/20 19:28
[2020-01-31] MEDS ORDERED: BIMATOPROST 0.01% OP SOLN 2.5 ML BTL OP SCH (21:00)
[2020-01-31] MEDS ORDERED: ASCORBIC ACID 500 MG TAB PO SCH (21:00)
== END 2020-01-31 19:28 | disposition home or self-care (01) ==
LOC: 2W 19:19 → ED 19:19 → SUATTDRO 21:59 → 2W 01-31 00:12
DX: H40.9 Unspecified glaucoma; G40.909 Epilepsy, unspecified, not intractable, without status epilepticus; Z80.3 Family history of malignant neoplasm of breast; Z85.828 Personal history of other malignant neoplasm of skin; I10 Essential (primary) hypertension; M81.0 Age-related osteoporosis without current pathological fracture; W18.00XA Striking against unspecified object with subsequent fall, initial encounter; S00.83XA Contusion of other part of head, initial encounter; R53.1 Weakness; R00.0 Tachycardia, unspecified; S00.511A Abrasion of lip, initial encounter; Z79.899 Other long term (current) drug therapy

== ENCOUNTER 2021-03-22 11:51 | Observation (INO) ==
[2021-03-22] MEDS ORDERED: SODIUM CHLORIDE 0.9% 500 ML IV SCH (12:15)
--- NOTE | 2021-03-22 12:20 | Emergency Department Note ---
Impression & Plan Weakness, Fatigue, Tachycardia, Ambulatory dysfunction ED Provider Note NAME: RICKY ANDREA AGE: 75 SEX: F : 1945 ARRIVES VIA: Ambulance INFORMANT: [Patient] ED PROVIDER(S): [Amado Bell MD] CHIEF COMPLAINT: Weakness HISTORY OF PRESENT ILLNESS: The patient is a 75-year-old female who has felt weak since yesterday. The weakness is diffuse. She feels washed out and is having a harder time ambulating. There is no chest pain. She has not been short of breath. No fever, chills, cough or congestion. The patient thought she was constipated recently so she stopped her meloxicam. She has had a bowel movement since stopping the medication. The patient admits to a decreased appetite and decreased fluid intake. She has urinary urgency/frequency but states this is baseline. She has not fallen. She is vaccinated for COVID-19. Patient daughter states that her mother is hyperthyroid. REVIEW OF SYSTEMS: See HPI for pertinent positives and negatives. A total of ten systems were reviewed and were otherwise negative. PMHx/PSHx: See Below SOCIAL HISTORY: See Below. PHYSICAL EXAM: GENERAL: Patient is in no acute distress. HEENT: No acute trauma, normocephalic atraumatic, mucous membranes moist, no nasal congestion, no scleral icterus. NECK: No stridor, no adenopathy, no meningismus, trachea is midline. LUNGS: Clear to auscultation bilaterally, no wheeze, no rhonchi, breath sounds equal. HEART: 2/6 systolic murmur, mildly tachycardic, regular rhythm. ABDOMEN: Soft, nontender, bowel sounds positive, no hernias, no peritonitis. EXTREMITIES: No cyanosis or edema, full range of motion of all the joints without pain or difficulty, no signs for acute trauma. NEUROLOGIC: Oriented x 3, no acute motor or sensory deficits, no focal weakness. Equal hand grasp, no extremity drift. No speech slur. SKIN: No rash, no jaundice, no diaphoresis. DIFFERENTIAL DIAGNOSIS: Infection, dehydration, metabolic abnormality, hypo/hyperglycemia, COVID-19, UTI, electrolyte disturbance, anemia, hypoxia, cardiac sources, intracerebral event, toxicologic issues, stroke, TIA, as well as other pathologies. EMERGENCY DEPARTMENT COURSE/PROCEDURES: ECG: Indication was weakness. The ECG shows a normal sinus rhythm with a rate of 99. There is some baseline artifact. There is no ST elevation, no PVCs. The QTc is 477. Continuous Cardiac Monitoring: An order was placed for continuous cardiac monitoring. The monitor shows a rate of 105 with sinus tachycardia. MEDICAL DECISION MAKING: There is no leukocytosis or concerning anemia. There is a normal platelet count. No significant electrolyte abnormality or kidney failure. No worrisome liver enzyme elevation. The patient's TSH was low however, the T4 was normal. Urinalysis did not show infection. Covid testing returned negative. Chest film did not show pneumonia or CHF. Brain CT showed no acute bleed or mass-effect. ECG shows a sinus rhythm, no acute ischemia. Cardiac enzyme testing x1 is not consistent with acute cardiac injury. On exam, there were no focal neurologic deficits, no speech slur. Patient was given IV saline, 1 L. The patient was walked around this ED, she was quite weak and exhausted and could only go a few steps. She had to be put back in the bed. She failed her ambulation trial. The cause for the weakness and fatigue is unclear. Patient does live alone and there are some concerns that she would be unsafe if discharged. She is concerned that she will fall. The patient is going to be hospitalized. She may require rehab or strengthening. Further work-up is required as the cause for her presentation is unclear. I did speak with the patient and case management. The on-call hospitalist has been consulted. Past Med/Surg History Medical History Arthritis Diverticular disease Glaucoma b/l Hiatal hernia Hx of basal cell carcinoma s/p excision Osteoporosis Seizure Hx epilepsy- no seizure x years Surgical History History of elbow surgery RIGHT Hx laparoscopic cholecystectomy (08/06/19) Laparoscopic Cholecystectomy Dr. 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 current occupational status: retired Feels Safe at Home: Yes Assistive Devices: Cane and Glasses Allergies Allergies Allergy/AdvReac Type Severity Reaction Status Date / Time No Known Allergies Allergy Verified 03/22/21 13:55 Home Meds Home Medications Medication Instructions Recorded Confirmed B-complex with vitamin C [Super B 1 tab PO QAM 07/08/19 03/22/21 Complex-Vitamin C] Calcium 600 + D(3) 1 cap PO BID 07/08/19 03/22/21 carbamazepine [Tegretol XR] 400 mg PO BID 07/08/19 03/22/21 Centrum Silver Women 1 tab PO QAM 07/24/19 03/22/21 glucosamine-chondroitin [Osteo 1 tab PO BID 07/24/19 03/22/21 Bi-Flex] turmeric 400 mg PO QAM 07/24/19 03/22/21 ascorbic acid (vitamin C) [Vitamin 500 mg PO HS 08/06/19 03/22/21 C] meloxicam 7.5 mg PO DAILY 03/22/21 03/22/21 Results & Data (ED) Vital Signs Vital Signs - 24 hr 03/22/21 11:55 03/22/21 11:59 03/22/21 12:01 Temperature 36.7 C Temperature Source Oral Pulse Rate 96 H 105 H 96 H Pulse Rate [Left Finger] Pulse Rate from SpO2 Sensor 96 H 96 H Respiratory Rate 14 20 15 Respiratory Effort / Characteristics Non-Labored Respiratory Depth Normal Respiratory Pattern Regular Blood Pressure 164/93 H 164/95 H Blood Pressure [Right Arm] Blood Pressure Mean 116 118 Blood Pressure Mean [Right Arm] Blood Pressure Position Lying Pulse Oximetry 96 96 96 Oxygen Delivery Method Room Air Sepsis Recent Fever Within 48 Hours No Sepsis New/Unexplained Change in Mental Status No Sepsis Action Taken by Nursing No Action Required 03/22/21 12:08 03/22/21 12:15 03/22/21 12:30 Temperature Temperature Source Pulse Rate 95 H 95 H Pulse Rate [Left Finger] Pulse Rate from SpO2 Sensor 96 H Respiratory Rate 17 17 Respiratory Effort / Characteristics Respiratory Depth Respiratory Pattern Blood Pressure 113/77 Blood Pressure [Right Arm] Blood Pressure Mean 89 Blood Pressure Mean [Right Arm] Blood Pressure Position Pulse Oximetry 97 Oxygen Delivery Method Room Air Sepsis Recent Fever Within 48 Hours Sepsis New/Unexplained Change in Mental Status Sepsis Action Taken by Nursing 03/22/21 13:00 03/22/21 13:25 03/22/21 13:30 Temperature Temperature Source Pulse Rate 91 H 102 H Pulse Rate [Left Finger] Pulse Rate from SpO2 Sensor Respiratory Rate 15 19 Respiratory Effort / Characteristics Respiratory Depth Respiratory Pattern Blood Pressure 148/82 H Blood Pressure [Right Arm] Blood Pressure Mean 104 Blood Pressure Mean [Right Arm] Blood Pressure Position Pulse Oximetry Oxygen Delivery Method Sepsis Recent Fever Within 48 Hours Sepsis New/Unexplained Change in Mental Status Sepsis Action Taken by Nursing 03/22/21 14:00 03/22/21 15:20 Temperature Temperature Source Pulse Rate 94 H Pulse Rate [Left Finger] 103 H Pulse Rate from SpO2 Sensor Respiratory Rate 13 18 Respiratory Effort / Characteristics Respiratory Depth Respiratory Pattern Blood Pressure Blood Pressure [Right Arm] 157/98 H Blood Pressure Mean Blood Pressure Mean [Right Arm] 117 Blood Pressure Position Pulse Oximetry 98 Oxygen Delivery Method Room Air Sepsis Recent Fever Within 48 Hours Sepsis New/Unexplained Change in Mental Status Sepsis Action Taken by Custodial Medications Current Medication List: was personally reviewed by me Laboratory Data Attestation: I reviewed the patient's lab results. Result diagrams: 03/22/21 12:25 03/22/21 12:25 Lab Results 03/22/21 03/22/21 03/22/21 Range/Units 12:25 12:25 12:45 WBC 7.98 (4.8-10.8) K/uL RBC 4.76 (4.2-5.4) M/uL Hgb 15.7 (12.0-16.0) g/dL Hct 44.8 (37-47) % MCV 94.1 (80-100) fL MCH 33.0 (25-34) pg MCHC 35.0 (32-36) g/dL RDW Std Deviation 43.8 (36.4-46.3) fL RDW Coeff of Bhavesh 12.7 (11.5-14.5) % Plt Count 308 (130-400) K/uL MPV 9.0 (7.4-10.4) fL Immature Gran % (Auto) 0.3 % Neut % (Auto) 52.6 % Lymph % (Auto) 35.3 % Rankin % (Auto) 9.5 % Eos % (Auto) 1.9 % Baso % (Auto) 0.4 % Neut # (Auto) 4.20 (1.4-6.5) K/uL Lymph # (Auto) 2.82 (1.2-3.4) K/uL Rankin # (Auto) 0.76 H (0.11-0.59) K/uL Eos # (Auto) 0.15 (0-0.5) K/uL Baso # (Auto) 0.03 (0-0.2) K/uL Immature Gran # (Auto) 0.02 (0.00-0.02) K/uL Sodium 140 (136-145) mmol/L Potassium 4.0 (3.5-5.1) mmol/L Chloride 108 H (98-107) mmol/L Carbon Dioxide 27 (21-32) mmol/L Anion Gap 5.0 (3-11) BUN 10 (7-18) mg/dl Creatinine 0.59 L (0.6-1.2) mg/dl Est Cr Clr Drug Dosing 83.9 ml/min Est GFR ( Amer) 105.4 ml/min Est GFR (Non-Af Amer) 90.9 ml/min BUN/Creatinine Ratio 16.6 (10-20) Glucose 90 (70-99) mg/dl Calcium 9.0 (8.5-10.1) mg/dl Magnesium 2.2 (1.8-2.4) mg/dl Total Bilirubin 0.5 (0.2-1) mg/dl AST 17 (15-37) U/L ALT 21 (12-78) U/L Alkaline Phosphatase 130 H (45-117) U/L Troponin I < 0.015 (0-0.045) ng/ml Total Protein 7.2 (6.4-8.2) gm/dl Albumin 4.0 (3.4-5.0) gm/dl Globulin 3.2 (2.5-4.0) gm/dl Albumin/Globulin Ratio 1.3 (0.9-2) TSH 0.077 L (0.300-4.500) uIu/ml Free T4 1.27 (0.8-1.6) ng/dl Urine Color Urine Appearance (Clear) Urine pH (4.5-7.5) Ur Specific Livingston (1.000-1.030) Urine Protein (Negative) Urine Glucose (UA) (Negative) Urine Ketones (Negative) Urine Blood (Negative) Urine Nitrite (Negative) Urine Bilirubin (Negative) Urine Urobilinogen (Negative) Ur Leukocyte Esterase (Negative) COVID-19 Eval Order Covid19 at [facility] SARS-CoV-2 (PCR) (Negative) 03/22/21 03/22/21 Range/Units 12:45 13:30 WBC (4.8-10.8) K/uL RBC (4.2-5.4) M/uL Hgb (12.0-16.0) g/dL Hct (37-47) % MCV (80-100) fL MCH (25-34) pg MCHC (32-36) g/dL RDW Std Deviation (36.4-46.3) fL RDW Coeff of Bhavesh (11.5-14.5) % Plt Count (130-400) K/uL MPV (7.4-10.4) fL Immature Gran % (Auto) % Neut % (Auto) % Lymph % (Auto) % Rankin % (Auto) % Eos % (Auto) % Baso % (Auto) % Neut # (Auto) (1.4-6.5) K/uL Lymph # (Auto) (1.2-3.4) K/uL Rankin # (Auto) (0.11-0.59) K/uL Eos # (Auto) (0-0.5) K/uL Baso # (Auto) (0-0.2) K/uL Immature Gran # (Auto) (0.00-0.02) K/uL Sodium (136-145) mmol/L Potassium (3.5-5.1) mmol/L Chloride (98-107) mmol/L Carbon Dioxide (21-32) mmol/L Anion Gap (3-11) BUN (7-18) mg/dl Creatinine (0.6-1.2) mg/dl Est Cr Clr Drug Dosing ml/min Est GFR ( Amer) ml/min Est GFR (Non-Af Amer) ml/min BUN/Creatinine Ratio (10-20) Glucose (70-99) mg/dl Calcium (8.5-10.1) mg/dl Magnesium (1.8-2.4) mg/dl Total Bilirubin (0.2-1) mg/dl AST (15-37) U/L ALT (12-78) U/L Alkaline Phosphatase (45-117) U/L Troponin I (0-0.045) ng/ml Total Protein (6.4-8.2) gm/dl Albumin (3.4-5.0) gm/dl Globulin (2.5-4.0) gm/dl Albumin/Globulin Ratio (0.9-2) TSH (0.300-4.500) uIu/ml Free T4 (0.8-1.6) ng/dl Urine Color Yellow Urine Appearance Clear (Clear) Urine pH 7.5 (4.5-7.5) Ur Specific [place] 1.006 (1.000-1.030) Urine Protein Negative (Negative) Urine Glucose (UA) Negative (Negative) Urine Ketones Negative (Negative) Urine Blood Negative (Negative) Urine Nitrite Negative (Negative) Urine Bilirubin Negative (Negative) Urine Urobilinogen Negative (Negative) Ur Leukocyte Esterase Negative (Negative) COVID-19 Eval Order SARS-CoV-2 (PCR) NEGATIVE (Negative) Administered Medications Discontinued Medications Sodium Chloride (Nss) 500 mls @ 999 mls/hr IV .Q31M JUAN FRANCISCO Stop: 03/22/21 12:45 Last Infusion: 03/22/21 13:06 Dose: 0 mls/hr Documented by: [id number] Admin: 03/22/21 12:35 Dose: 999 mls/hr Documented by: [id number] Sodium Chloride (Nss 1000ml) 500 mls @ 999 mls/hr IV .Q31M ONE Stop: 03/22/21 14:23 Last Infusion: 03/22/21 14:46 Dose: 0 mls/hr Documented by: [id number] Admin: 03/22/21 14:15 Dose: 999 mls/hr Documented by: [id number] Imaging Data Radiologist's Impression: Chest X-Ray 03/22/21 12:15 XR chest 1V portable HISTORY: 75 years-old Female weakness acute weakness COMPARISON: Chest radiograph 01/30/[address] 07/09/2019. TECHNIQUE: Portable AP view the chest FINDINGS: Left paratracheal opacity redemonstrated compatible with thyroid goiter. Mild prominence of the cardiac silhouette. Large hiatal hernia. No pneumothorax, pleural effusion or overt pulmonary edema. Left lung base opacities are unchanged suggestive of atelectasis. Degenerative changes of the shoulders and spine. IMPRESSION: 1. No acute process. 2. Large hiatal hernia. ACT 112: Negative or not required by law. The above report was generated using voice recognition software. It may contain grammatical, syntax or spelling errors. Electronically signed by: Sulaiman Torres M.D. 03/22/2021 12:[address] 03/22/21 15:30 CT SCAN OF THE BRAIN WITHOUT IV CONTRAST CLINICAL HISTORY: Lower extremity weakness. COMPARISON STUDY: CT of the brain dated 01/30/2020. TECHNIQUE: Unenhanced axial CT scan of the brain is performed from the vertex to the skull base. A dose lowering technique was utilized adhering to the principles of ALARA. CT DOSE: 1577.26 mGycm FINDINGS: Brain parenchyma: There are age-related involutional changes noting mild subcortical and periventricular microangiopathic change. There is no hemorrhage, mass effect, or evidence of acute territorial ischemia by CT criteria. Means- white matter differentiation is preserved. No extra-axial fluid collection is seen. Ventricles, sulci, cisterns: Prominent secondary to involutional change. Intracranial vasculature: There is atherosclerotic calcification of the cavernous carotid arteries. Calvarium: Unremarkable. Sinuses and mastoids: The paranasal sinuses are clear. The mastoid air cells are well pneumatized. Orbits: The bony orbits are grossly intact. There are bilateral ocular lens implants. IMPRESSION: There is no hemorrhage, mass effect, or evidence of acute territorial ischemia by CT criteria. ACT 112: Negative or not required by law. Electronically signed by: Amado Taylor M.D. 03/22/2021 4:08 PM Discharge Plan Visit Data Chief Complaint: Illness Stated Complaint: Weakness ED Provider: Amado Bell Discharge Problem: Weakness, Fatigue, Tachycardia, Ambulatory dysfunction Patient Disposition: Admitted As Inpatient Condition: Fair Forms Stand Alone Forms: [facility] Prescriptions Prescriptions: No Action carbamazepine [Tegretol XR] 400 mg Tablet Extended Release 12 Hr 400 mg PO BID RF: 0 B-complex with vitamin C [Super B Complex-Vitamin C] Tablet 1 tab PO QAM RF: 0 Calcium 600 + D(3) 600 mg calcium- 200 unit Capsule 1 cap PO BID RF: 0 glucosamine-chondroitin [Osteo Bi-Flex] 250-200 mg Tablet 1 tab PO BID RF: 0 Centrum Silver Women 8 mg iron-400 mcg-300 mcg Tablet 1 tab PO QAM RF: 0 turmeric 400 mg Capsule 400 mg PO QAM RF: 0 ascorbic acid (vitamin C) [Vitamin C] 500 mg Tablet 500 mg PO HS RF: 0 meloxicam 7.5 mg tablet 7.5 mg PO DAILY RF: 0 Referrals Referrals: Elvia Rodriguez MD [Primary Care Provider] - Discharge Problem: Fatigue Qualifiers: Fatigue type: unspecified Qualified Code(s): R53.83 - Other fatigue
[2021-03-22 12:34] LABS: Basophils # (auto) 0.03 K/uL (0-0.2); Basophils % (auto) 0.4 %; Eosinophils # (auto) 0.15 K/uL (0-0.5); Eosinophils % (auto) 1.9 %; Hematocrit (blood only) 44.8 % (37-47); Hemoglobin 15.7 g/dL (12.0-16.0); Immature Granulocytes # (auto) 0.02 K/uL (0.00-0.02); Immature Granulocytes % (auto) 0.3 %; Lymphocytes # (auto) 2.82 K/uL (1.2-3.4); Lymphocytes % (auto) 35.3 %; Mean Corpuscular Volume 94.1 fL (80-100); Monocytes # (auto) 0.76 K/uL (0.11-0.59); Monocytes % (auto) 9.5 %; Neutrophils % (auto) 52.6 %; Platelet Count 308 K/uL (130-400); RDW Coefficient of Variation 12.7 % (11.5-14.5); RDW Standard Deviation 43.8 fL (36.4-46.3); Red Blood Count 4.76 M/uL (4.2-5.4); White Blood Count 7.98 K/uL (4.8-10.8)
--- NOTE | 2021-03-22 12:36 | XRay Report ---
XR chest 1V portable HISTORY: 75 years-old Female weakness acute weakness COMPARISON: Chest radiograph 01/30/[address] 07/09/2019. TECHNIQUE: Portable AP view the chest FINDINGS: Left paratracheal opacity redemonstrated compatible with thyroid goiter. Mild prominence of the cardi ac silhouette. Large hiatal hernia. No pneumothorax, pleural effusion or overt pulmonary edema. Left lung base opacities are unchanged suggestive of atelectasis. Degenerative changes of the shoulders an d spine. IMPRESSION: 1. No acute process. 2. Large hiatal hernia. ACT 112: Negative or not required by law. The above report was generated using voice recognition software. It may contain grammatical, syntax o r spelling errors. Electronically signed by: Sulaiman Torres M.D. 03/22/2021 12:35 PM
[2021-03-22 12:53] LABS: Alanine Aminotransferase 21 U/L (12-78); Aspartate Aminotransferase 17 U/L (15-37); BUN Creatinine Ratio 16.6 (10-20); Blood Urea Nitrogen 10 mg/dl (7-18); Carbon Dioxide 27 mmol/L (21-32); Chloride 108 mmol/L (98-107); Creatinine Clr Calc Pharmacy 83.9 ml/min; Est GFR (African American) 105.4 ml/min; Est GFR (Non-African American) 90.9 ml/min; Glucose 90 mg/dl (70-99); Magnesium 2.2 mg/dl (1.8-2.4); Sodium 140 mmol/L (136-145)
[2021-03-22 13:04] LABS: Albumin Globulin Ratio 1.3 (0.9-2); Alkaline Phosphatase 130 U/L (45-117); Bilirubin,Total 0.5 mg/dl (0.2-1); Globulin 3.2 gm/dl (2.5-4.0); Thyroid Stimulating Hormone 0.077 uIu/ml (0.300-4.500); Total Protein 7.2 gm/dl (6.4-8.2); Troponin I < 0.015 ng/ml (0-0.045)
[2021-03-22 13:18] LABS: T4 Free Thyroxine 1.27 ng/dl (0.8-1.6)
--- NOTE | 2021-03-22 13:40 | Electrocardiogram Report ---
Test Reason : Blood Pressure : / mmHG Vent. Rate : 099 BPM Atrial Rate : 099 BPM P-R Int : 196 ms QRS Dur : 094 ms QT Int : 372 ms P-R-T Axes : 046 030 040 degrees QTc Int : 477 ms Poor data quality, interpretation may be adversely affected Normal sinus rhythm Incomplete right bundle branch block Borderline ECG When compared with ECG of 30-JAN-2020 19:24, No significant change Confirmed by Reji Beavers ([id number]) on 03/22/2021 1:39:45 PM Referred By: Confirmed By:Reji Beavers
[2021-03-22] MEDS ORDERED: SODIUM CHLORIDE 0.9% 1000ML 500 ML IV ONE (13:53)
[2021-03-22 14:00] LABS: Appearance Urine Clear (Clear); Bilirubin Urine Negative (Negative); Blood Urine Negative (Negative); Color Urine Yellow; Glucose Urine UA Negative (Negative); Ketones Urine Negative (Negative); Leukocyte Esterase Urine Negative (Negative); Nitrite Urine Negative (Negative); Protein Urine Negative (Negative); Specific Gravity Urine 1.006 (1.000-1.030); Urobilinogen Urine Negative (Negative); pH Urine 7.5 (4.5-7.5)
--- NOTE | 2021-03-22 16:10 | CT Scan Report ---
CT SCAN OF THE BRAIN WITHOUT IV CONTRAST CLINICAL HISTORY: Lower extremity weakness. COMPARISON STUDY: CT of the brain dated 01/30/2020. TECHNIQUE: Unenhanced axial CT scan of the brain is performed from the vertex to the skull base. A do se lowering technique was utilized adhering to the principles of ALARA. CT DOSE: 1577.26 mGycm FINDINGS: Brain parenchyma: There are age-related involutional changes noting mild subcortical and periventric ular microangiopathic change. There is no hemorrhage, mass effect, or evidence of acute territorial i schemia by CT criteria. Means-white matter differentiation is preserved. No extra-axial fluid collecti on is seen. Ventricles, sulci, cisterns: Prominent secondary to involutional change. Intracranial vasculature: There is atherosclerotic calcification of the cavernous carotid arteries. Calvarium: Unremarkable. Sinuses and mastoids: The paranasal sinuses are clear. The mastoid air cells are well pneumatized. Orbits: The bony orbits are grossly intact. There are bilateral ocular lens implants. IMPRESSION: There is no hemorrhage, mass effect, or evidence of acute territorial ischemia by CT crit kylie. ACT 112: Negative or not required by law. Electronically signed by: Amado Taylor M.D. 03/22/2021 4:08 PM
--- NOTE | 2021-03-22 17:10 | History & Physical Report ---
Date of Service March 22, 2021 Assessment & Plan (1) Generalized weakness: (2) Ambulatory dysfunction: Pt is 75 y/o F with PMH seizure disorder, multinodular goiter, peripheral neuropathy, anxiety, OA presented to ER with c/o generalized weakness for past 1-2 days. States having difficulty ambulating on her own. Denies leg pain, ZHOU, syncope, falls, CP, SOB, fever/chills No leukocytosis, H&H 15/44, no significant electrolyte abnormality, UA unremarkable, TSH: 0.07, Free T4: 1.27. CT Head: no acute findings. CXR: no acute findings Was unable to ambulate in ER without assistance Unclear what is causing pt's weakness at this time. No focal findings on exam -Monitor -Fall precautions -orthostatic vitals -PT/OT eval -CBC, BMP in am (3) Tachycardia: In ER P: 105 down to 94. Sinus tachycardia. In ER given IVF -IVF -Monitor (4) Seizure disorder: No history seizure for years -Continue carbamazepine (5) Multinodular goiter: TSH: 0.07, Free T4 1.27. Outpatient labs from 03/08/21 TSH: 0.23, (range 0.27-4.2) with Free T4 WNL. Was to have labs repeated in 3 months Had mild sinus tachycardia improved with IVF in ER. Denies tremor, palpitations, weight loss, diarrhea, SOB DVT Prophylaxis -Lovenox SQ DNR/DNI as per discussion with pt Follows with Dr Elvia Rodriguez for routine care Pt was seen and care coordinated with Dr Dodd. See addendum History of Present Illness Chief Complaint: Weakness Primary Care Provider: Elvia Rodriguez MD Pt is 75 y/o F with PMH seizure disorder, multinodular goiter, peripheral neuropathy, anxiety, OA presented to ER with c/o generalized weakness for past 1-2 days. States having difficulty ambulating on her own. Denies extremity pain, denies falls. Has chronic back pain and reports at baseline. Has urinary urgency at baseline and denies any increase. Was taking Meloxicam approx 2 weeks ago for a week and developed constipation so she stopped taking. Had BM today. Pt reports feeling "woozy" with standing up that she reports occurs at baseline. Denies fever/chills, diaphoresis, N/V/D, ZHOU, syncope, vision changes, neck pain, CP, SOB, orthopnea, palpitations, cough, sore throat, choking, otalgia, rhinorrhea, abdominal pain, paresthesias, weakness, extremity weakness, extremity edema, rashes, dysuria, hematuria, seizure like activity. Allergies Allergy/AdvReac Type Severity Reaction Status Date / Time No Known Allergies Allergy Verified 03/22/21 13:55 Home Medications Medication Instructions Recorded Confirmed Type B-complex with vitamin C [Super B 1 tab PO QAM 07/08/19 03/22/21 History Complex-Vitamin C] Calcium 600 + D(3) 1 cap PO BID 07/08/19 03/22/21 History carbamazepine [Tegretol XR] 400 mg PO BID 07/08/19 03/22/21 History Centrum Silver Women 1 tab PO QAM 07/24/19 03/22/21 History glucosamine-chondroitin [Osteo 1 tab PO BID 07/24/19 03/22/21 History Bi-Flex] turmeric 400 mg PO QAM 07/24/19 03/22/21 History ascorbic acid (vitamin C) [Vitamin 500 mg PO HS 08/06/19 03/22/21 History C] meloxicam 7.5 mg PO DAILY 03/22/21 03/22/21 History Past Med/Surg History Medical History (Updated 03/22/21 @ 17:43 by Rahda Felix PA-C) Arthritis Diverticular disease Glaucoma b/l Hiatal hernia Hx of basal cell carcinoma s/p excision Multinodular goiter Osteoporosis Seizure Hx epilepsy- no seizure x years Surgical History History of elbow surgery RIGHT Hx laparoscopic cholecystectomy (08/06/19) Laparoscopic Cholecystectomy Dr. Ty 08/06/19 Hx of basal cell carcinoma excision Family History Daughter Breast cancer Social History Smoking Status: Never smoker Second Hand Exposure: No; Hx Alcohol Use: Yes Alcohol type: wine and hard liquor Hx Substance Use: No Preferred Language: Serbian Communication Ability: Effective Process Consultant Required: No Beliefs That Will Affect Care: None marital status: Current Living Situation: Family Current Living Situation Comment: Lives with daughter and family. current occupational status: retired Feels Safe at Home: Yes Assistive Devices: Cane and Glasses Review of Systems Review of Systems: All systems reviewed & are unremarkable except as noted in HPI & below Physical Exam Physical Exam: General: no distress, WDWN Head: normocephalic, atraumatic Eyes: PERRL, EOM's intact, conjunctiva non-injected, anicteric ENT: normal inspection external ears, nose, mucous membranes moist Neck: supple, trachea midline Lungs: clear, no respiratory distress, no wheezing/rhonchi/rales CV: RRR, no murmur, no pretibial edema Abd: normal BS, soft, non-tender Ext: no cyanosis, no calf tenderness Neuro: A&O x 3, no focal deficits noted, normal affect Skin: warm, dry Results & Data Results & Data ([facility]) Vital Signs (Past 12 Hours) Vital Signs Temp Pulse Pulse Resp BP BP Pulse Ox 03/22/21 15:20 103 H 18 157/98 H 98 03/22/21 14:00 94 H 13 03/22/21 13:30 102 H 19 03/22/21 13:25 148/82 H 03/22/21 13:00 91 H 15 03/22/21 12:30 95 H 17 03/22/21 12:08 95 H 17 113/77 97 03/22/21 12:01 96 H 15 96 03/22/21 11:59 36.7 C 105 H 20 164/95 H 96 03/22/21 11:55 96 H 14 164/93 H 96 Laboratory Results Short CBC 03/22/21 Range/Units 12:25 WBC 7.98 (4.8-10.8) K/uL Hgb 15.7 (12.0-16.0) g/dL Hct 44.8 (37-47) % Plt Count 308 (130-400) K/uL BMP 03/22/21 12:25 Sodium 140 Potassium 4.0 Chloride 108 H Carbon Dioxide 27 BUN 10 Creatinine 0.59 L Glucose 90 Calcium 9.0 Cardiac Enzymes 03/22/21 Range/Units 12:25 Troponin I < 0.015 (0-0.045) ng/ml Liver Function 03/22/21 Range/Units 12:25 Total Bilirubin 0.5 (0.2-1) mg/dl AST 17 (15-37) U/L ALT 21 (12-78) U/L Alkaline Phosphatase 130 H (45-117) U/L Albumin 4.0 (3.4-5.0) gm/dl Urine 03/22/21 Range/Units 13:30 Urine Color Yellow Urine Appearance Clear (Clear) Urine pH 7.5 (4.5-7.5) Ur Specific [place] 1.006 (1.000-1.030) Urine Protein Negative (Negative) Urine Glucose (UA) Negative (Negative) Diagnostic Findings Chest X-Ray 03/22/21 12:15 XR chest 1V portable HISTORY: 75 years-old Female weakness acute weakness COMPARISON: Chest radiograph 01/30/[address] 07/09/2019. TECHNIQUE: Portable AP view the chest FINDINGS: Left paratracheal opacity redemonstrated compatible with thyroid goiter. Mild prominence of the cardiac silhouette. Large hiatal hernia. No pneumothorax, pleural effusion or overt pulmonary edema. Left lung base opacities are unchanged suggestive of atelectasis. Degenerative changes of the shoulders and spine. IMPRESSION: 1. No acute process. 2. Large hiatal hernia. ACT 112: Negative or not required by law. The above report was generated using voice recognition software. It may contain grammatical, syntax or spelling errors. Electronically signed by: Sulaiman Torres M.D. 03/22/2021 12:[address] 03/22/21 15:30 CT SCAN OF THE BRAIN WITHOUT IV CONTRAST CLINICAL HISTORY: Lower extremity weakness. COMPARISON STUDY: CT of the brain dated 01/30/2020. TECHNIQUE: Unenhanced axial CT scan of the brain is performed from the vertex to the skull base. A dose lowering technique was utilized adhering to the principles of ALARA. CT DOSE: 1577.26 mGycm FINDINGS: Brain parenchyma: There are age-related involutional changes noting mild subcortical and periventricular microangiopathic change. There is no hemorrhage, mass effect, or evidence of acute territorial ischemia by CT criteria. Means- white matter differentiation is preserved. No extra-axial fluid collection is seen. Ventricles, sulci, cisterns: Prominent secondary to involutional change. Intracranial vasculature: There is atherosclerotic calcification of the cavernous carotid arteries. Calvarium: Unremarkable. Sinuses and mastoids: The paranasal sinuses are clear. The mastoid air cells are well pneumatized. Orbits: The bony orbits are grossly intact. There are bilateral ocular lens implants. IMPRESSION: There is no hemorrhage, mass effect, or evidence of acute territorial ischemia by CT criteria. ACT 112: Negative or not required by law. Electronically signed by: Aamdo Taylor M.D. 03/22/2021 4:08 PM Code Status & VTE Plan VTE Prophylaxis Plan VTE Prophylaxis will be ordered: Yes Supervising Physician Co-Signing Physician Notes I saw this patient with the physician construction project assistant, I participated in the history, physical, review of systems, and physical exam. I reviewed the medications with the patient and the physician construction project assistant and helped reconcile the medications. I helped take a detailed family and social history as well. I formulated the assessment and plan personally with the physician construction project assistant and went over it with the patient. ROS-No Headache, No Visual Changes, No Nausea, No Vomiting, No Fever, No Chills, No Neck Pain or Stiffness, No Chest Pain, No Palpitations, No SOB, No BYRD, No Cough, No Sputum, No Wheezing, No Abdominal Pain, No Diarrhea, No Hematemesis, No Hemoptysis, No Unexpected Weight Loss, No Flank pain, No Melena, No Hematochezia, No Frequency, No Urgency, No Burning, No Hematuria, No Rashes, No Diaphoresis. Appetite is Normal, +Weakness Physical Exam Gen-AAO x 3, NAD, Afebrile Head-NCAT, EOMI, PERRLA, Anicteric Sclera, No Posterior Pharyngeal Erythema Neck-Supple, No JVD, No Thyromegaly, No Masses, No LAD, No Bruits Lungs-Clear to Auscultation Bilaterally, No Rales, No Rhonchi, No Wheezing, No Crepitus Chest-No S4, +S1, +S2, No S3, No Murmurs, No Rubs, No Gallops, No Ectopy Abdomen-Soft, Bowel Sounds Present, Non Tender, Non Distended, No Hepatomegaly, No Splenomegaly, No Palpable Masses, No Rebound, No Rigidity, No Guarding Musculoskeletal-Full Range of Motion Bilaterally, No CVAT Extremities-No Cyanosis, No Clubbing, No Edema Nuero-Cranial Nerves II-XII grossly intact, Motor WNL, DTRs WNL, Strength WNL, Non Focal Psych-Normal Mood
[2021-03-22] MEDS ORDERED: SODIUM CHLORIDE 0.9% 1000ML 1,000 ML IV SCH (19:11)
[2021-03-22] MEDS ORDERED: POLYETHYLENE (MIRALAX) 17 GM PACK PO PRN (19:11)
[2021-03-22] MEDS ORDERED: ACETAMINOPHEN 325 MG TAB PO PRN (19:11)
[2021-03-22] MEDS: ENOXAPARIN INJ 40 MG/0.4 ML SYR SQ SCH (20:50)
[2021-03-23 08:07] LABS: Hematocrit (blood only) 41.5 % (37-47); Hemoglobin 14.3 g/dL (12.0-16.0); Mean Corpuscular Hemoglobin 32.7 pg (25-34); Mean Corpuscular Hgb Conc 34.5 g/dL (32-36); Mean Platelet Volume 9.1 fL (7.4-10.4); Platelet Count 286 K/uL (130-400); RDW Coefficient of Variation 12.9 % (11.5-14.5); RDW Standard Deviation 44.9 fL (36.4-46.3); Red Blood Count 4.37 M/uL (4.2-5.4)
[2021-03-23 08:42] LABS: BUN Creatinine Ratio 21.4 (10-20); Calcium 8.2 mg/dl (8.5-10.1); Creatinine Clr Calc Pharmacy 93.4 ml/min; Est GFR (African American) 110.6 ml/min; Est GFR (Non-African American) 95.4 ml/min; Potassium 3.8 mmol/L (3.5-5.1)
--- NOTE | 2021-03-23 19:54 | Hospitalist Progress Note ---
Date of Service March 23, 2021 Assessment & Plan (1) Generalized weakness: (2) Ambulatory dysfunction: Pt is 75 y/o F with PMH seizure disorder, multinodular goiter, peripheral neuropathy, anxiety, OA presented to ER with c/o generalized weakness for past 1-2 days. States having difficulty ambulating on her own. Denies leg pain, ZHOU, syncope, falls, CP, SOB, fever/chills No leukocytosis, H&H 15/44, no significant electrolyte abnormality, UA unremarkable, TSH: 0.07, Free T4: 1.27. CT Head showed no acute findings. CXR showed no acute findings No focal neuro deficit on exam Continue PT/OT Fall precaution Pt is interested to go to rehab (3) Tachycardia: EKG showed sinus tachycardia. HR improved (4) Seizure disorder: No history seizure for years Continue carbamazepine (5) Multinodular goiter: TSH: 0.07, Free T4 1.27. Outpatient labs from 03/08/21 TSH: 0.23, (range 0.27-4.2) with Free T4 WNL. Asymptomatic Will need to repeat TSH in 4 weeks DVT Prophylaxis -Lovenox SQ DNR/DNI Admission and Anticipated Discharge Date Admission Date: March 22, 2021 Subjective Pt was seen and examined for follow weakness Lying in bed with no distress Pt said that she feels much better She said that she is afraid to go home She is interested to go to rehab for a couple days before discharging home Denies any chest pain, palpitation, dizziness and SOB Review of Systems Review of Systems: All systems reviewed & are unremarkable except as noted in Subjective Physical Exam Physical Exam: General- No acute distress Head- atraumatic Eyes- PERRL, EOMI, ENT- oropharynx clear Neck- supple, no JVD Lungs- clear to auscultation Heart- regular rhythm; no murmur Abdomen- normal bowel sounds, soft, nontender Extremities- no calf tenderness Neuro- alert, oriented x 3; PERRL, EOMI; no facial palsy; no dysarthria Skin- warm & dry Results & Data Results & Data ([facility]) Vital Signs (Past 12 Hours) Vital Signs Temp Pulse Resp BP Pulse Ox 03/23/21 15:39 36.6 C 85 16 120/77 95
[2021-03-23] MEDS: ENOXAPARIN INJ 40 MG/0.4 ML SYR SQ SCH (21:40)
--- NOTE | 2021-03-24 15:54 | Discharge Summary ---
Date of Service March 24, 2021 Admission HPI Per Admitting Provider Pt is 75 y/o F with PMH seizure disorder, multinodular goiter, peripheral neuropathy, anxiety, OA presented to ER with c/o generalized weakness for past 1-2 days. States having difficulty ambulating on her own. Denies extremity pain, denies falls. Has chronic back pain and reports at baseline. Has urinary urgency at baseline and denies any increase. Was taking Meloxicam approx 2 weeks ago for a week and developed constipation so she stopped taking. Had BM today. Pt reports feeling "woozy" with standing up that she reports occurs at baseline. Denies fever/chills, diaphoresis, N/V/D, ZHOU, syncope, vision changes, neck pain, CP, SOB, orthopnea, palpitations, cough, sore throat, choking, otalgia, rhinorrhea, abdominal pain, paresthesias, weakness, extremity weakness, extremity edema, rashes, dysuria, hematuria, seizure like activity. Admission Exam Per Admitting Provider General: no distress, WDWN Head: normocephalic, atraumatic Eyes: PERRL, EOM's intact, conjunctiva non-injected, anicteric ENT: normal inspection external ears, nose, mucous membranes moist Neck: supple, trachea midline Lungs: clear, no respiratory distress, no wheezing/rhonchi/rales CV: RRR, no murmur, no pretibial edema Abd: normal BS, soft, non-tender Ext: no cyanosis, no calf tenderness Neuro: A&O x 3, no focal deficits noted, normal affect Skin: warm, dry Principal Diagnosis (1) Generalized weakness: (2) Ambulatory dysfunction: (3) Tachycardia: (4) Seizure disorder: (5) Multinodular goiter: (6) Abnormal TSH Discharge Exam General- No acute distress Head- atraumatic Eyes- PERRL, EOMI, ENT- oropharynx clear Neck- supple, no JVD Lungs- clear to auscultation Heart- regular rhythm; no murmur Abdomen- normal bowel sounds, soft, nontender Extremities- no calf tenderness Neuro- alert, oriented x 3; PERRL, EOMI; no facial palsy; no dysarthria Skin- warm & dry Discharge Data Allergies Allergy/AdvReac Type Severity Reaction Status Date / Time No Known Allergies Allergy Verified 03/22/21 13:55 Consultations 03/22/21 16:32 ED Decision to Admit Stat Ordered Studies 03/22/21 15:30 CT head/brain wo con Stat CT SCAN OF THE BRAIN WITHOUT IV CONTRAST CLINICAL HISTORY: Lower extremity weakness. COMPARISON STUDY: CT of the brain dated 01/30/2020. TECHNIQUE: Unenhanced axial CT scan of the brain is performed from the vertex to the skull base. A dose lowering technique was utilized adhering to the principles of ALARA. CT DOSE: 1577.26 mGycm FINDINGS: Brain parenchyma: There are age-related involutional changes noting mild subcortical and periventricular microangiopathic change. There is no hemorrhage, mass effect, or evidence of acute territorial ischemia by CT criteria. Means- white matter differentiation is preserved. No extra-axial fluid collection is seen. Ventricles, sulci, cisterns: Prominent secondary to involutional change. Intracranial vasculature: There is atherosclerotic calcification of the cavernous carotid arteries. Calvarium: Unremarkable. Sinuses and mastoids: The paranasal sinuses are clear. The mastoid air cells are well pneumatized. Orbits: The bony orbits are grossly intact. There are bilateral ocular lens implants. IMPRESSION: There is no hemorrhage, mass effect, or evidence of acute territorial ischemia by CT criteria. ACT 112: Negative or not required by law. Electronically signed by: Amado Taylor M.D. 03/22/2021 4:08 PM Dictated: 03/22/21 1607Transcribed: 03/22/21 1607 XR chest 1V portable HISTORY: 75 years-old Female weakness acute weakness COMPARISON: Chest radiograph 01/30/[address] 07/09/2019. TECHNIQUE: Portable AP view the chest FINDINGS: Left paratracheal opacity redemonstrated compatible with thyroid goiter. Mild prominence of the cardiac silhouette. Large hiatal hernia. No pneumothorax, pleural effusion or overt pulmonary edema. Left lung base opacities are unchanged suggestive of atelectasis. Degenerative changes of the shoulders and spine. IMPRESSION: 1. No acute process. 2. Large hiatal hernia. ACT 112: Negative or not required by law. The above report was generated using voice recognition software. It may contain grammatical, syntax or spelling errors. Electronically signed by: Sulaiman Torres M.D. 03/22/2021 12:35 PM Dictated: 03/22/21 1233Transcribed: 03/22/21 1233 Hospital Course (1) Generalized weakness: (2) Ambulatory dysfunction: Pt is 75 y/o F with PMH seizure disorder, multinodular goiter, peripheral neuropathy, anxiety, OA presented to ER with c/o generalized weakness for past 1-2 days. States having difficulty ambulating on her own. Denies leg pain, ZHOU, syncope, falls, CP, SOB, fever/chills No leukocytosis, H&H 15/44, no significant electrolyte abnormality, UA unremarkable, TSH: 0.07, Free T4: 1.27. CT Head showed no acute findings. CXR showed no acute findings No focal neuro deficit on exam Continue PT/OT Fall precaution Pt is interested to go to rehab Plan to go rehab (3) Tachycardia: EKG showed sinus tachycardia with no acute ST changes HR improved (4) Seizure disorder: No history seizure for years Continue carbamazepine (5) Multinodular goiter: TSH: 0.07, Free T4 1.27. Outpatient labs from 03/08/21 TSH: 0.23, (range 0.27-4.2) with Free T4 WNL. Asymptomatic Will need to repeat TSH in 4 weeks DVT Prophylaxis -Lovenox SQ DNR/DNI Disposition Discharge to rehab today Total Time Total Time Spent Total Time Spent (In Minutes): 35 minutes Total Time Includes: Examination of the Patient, Discharge Planning, Medication Reconciliation, Communication With Other Providers and Other Discharge Plan Discharge Items Patient Disposition: Transfer Inpatient Rehab Fac Reason For Visit: Weakness Discharge Diagnosis: (1) Generalized weakness: (2) Ambulatory dysfunction: (3) Tachycardia: (4) Seizure disorder: (5) Multinodular goiter: (6) Abnormal TSH Condition on Discharge: Fair Activity: Resume your previous activity Non-emergency contact: Primary Care Provider Call non-emergency contact if: you have any medication questions Follow-up/Referrals: Elvia Rodriguez MD [Primary Care Provider] - Diet: Heart Healthy Addtl Attending Provider Instructions: Follow up with your primary care provider once discharge from rehab Continue physical and occupational therapy Fall precaution Seizure precaution Check TSH in 4 weeks to monitor thyroid function Pending Studies at Discharge: No Stand-Alone Forms: [facility] Skilled Items Patient informed of condition?: Yes DNR: Yes Discharge Level of Care: Acute rehab Communicable Disease: No Discharge Prognosis: Stable Lines: None Urinary Catheter: No Medications and DC Order Prescriptions: Continued carbamazepine [Tegretol XR] 400 mg Tablet Extended Release 12 Hr 400 mg PO BID RF: 0 B-complex with vitamin C [Super B Complex-Vitamin C] Tablet 1 tab PO QAM RF: 0 Calcium 600 + D(3) 600 mg calcium- 200 unit Capsule 1 cap PO BID RF: 0 glucosamine-chondroitin [Osteo Bi-Flex] 250-200 mg Tablet 1 tab PO BID RF: 0 Centrum Silver Women 8 mg iron-400 mcg-300 mcg Tablet 1 tab PO QAM RF: 0 turmeric 400 mg Capsule 400 mg PO QAM RF: 0 ascorbic acid (vitamin C) [Vitamin C] 500 mg Tablet 500 mg PO HS RF: 0 Changed meloxicam 7.5 mg tablet 7.5 mg PO DAILY PRN (Reason: pain) Qty: 0 RF: 0 Discharge Orders: Discharge Order (Routine); Ordered 03/24/21 Ordered By: Beverly Tuttle Admission Data Admit Date/Time: 03/22/21 17:06 Attending Provider: Beverly Tuttle Admit Provider: Bethel Dodd Primary Care Provider: Elvia Rodriguez Other Providers: Bethel Dodd ; [facility]
== END 2021-03-24 17:30 ==
LOC: 2W 11:51 → ED 11:51 → SUATTDRO 17:06 → 2W 18:21

== ENCOUNTER 2021-04-20 14:10 | Inpatient (IN) ==
--- NOTE | 2021-04-20 14:28 | Emergency Department Note ---
Impression & Plan Syncope, Dehydration ED Provider Note NAME: RICKY ANDREA AGE: 75 SEX: F : 1945 ARRIVES VIA: Ambulance INFORMANT: patient, ED PROVIDER(S): Loc Chang MD Chief Complaint: Syncope HPI: Patient does present from [facility] due to concern for syncope. The patient was playing a card game with residents when the patient states that she got very lightheaded and felt as though her heart was racing. The patient passed out was slumped in the chair but with no fall or trauma. The patient has a known history of seizure disorder but nobody reports no seizure-like activity. Patient states that she was not necessarily confused when she woke up. Patient does not believe that she had a seizure. No tongue biting or incontinence. Patient is not had a seizure many years and does take Tegretol for which she is compliant. Patient denies infectious symptoms, chest pains or shortness of breath. Patient denies nausea vomiting or abdominal pain. The patient is vaccinated for Covid. Patient has any lower extremity swelling. Patient denies any issues with defecation or urination. Patient has no prior history of heart or lung disease. Patient is a non-smoker and does not drink alcohol. ROS: See HPI for pertinent positives and negatives. A total of 10 systems were reviewed and otherwise negative. Past medical history: See below Surgical history: See below Social history: See below Physical Exam: GENERAL: Wearing a mask. NAD, non-toxic. EYE EXAM: Normal conjunctiva. PERRL, no anisocoria and EOM's grossly intact w/o pain. NECK: Supple, no nuchal rigidity, no adenopathy, non-tender. No signs of meningismus. LUNGS: Clear to auscultation. Normal chest wall mechanics. HEART: NSR, no MRG. ABDOMEN: Abdomen soft, non-tender, normo-active bowel sounds, no masses, no rebound or guarding. BACK: No CVA TTP. SKIN: No rashes and no bruising. UPPER EXTREMITIES: Upper extremities are grossly normal. LOWER EXTREMITIES: Grossly normal, no edema. NEURO EXAM: A&O x3, cranial nerves II-XII grossly intact, normal speech, moves all 4 extremities on command w/o issue. Differential diagnoses: Vasovagal event, dehydration, infection, hypoglycemia, electrolyte abnormalities, cardiac sources, intracerebral event, pulmonary embolism, seizure, toxicologic, neurologic, as well as other pathologies. Course: Patient was seen and evaluated the bedside. Full history physical exam was performed. EKG interpreted by me Normal sinus rhythm, rate of 87, normal intervals, normal axis, no ST changes or T WI. Imaging Studies: See below Cardiac monitoring: An order was placed for continuous cardiac monitoring. The monitor shows a rate of 89 with sinus rhythm. MDM: Patient was seen due to concern for syncope. Patient does have a reported history of seizure disorder but no reported seizure-like activity and the patient denied tongue biting or incontinence. The patient also denied any after the event. The patient did have bladder completed which showed a normal white count H&H and platelet count. Kidney function unremarkable albeit may be dehydrated. Troponin acceptable. TSH is low but the patient's free T4 is normal. Tegretol level is slightly elevated. Covid negative. Chest x-ray showed large hiatal hernia but was otherwise unremarkable. The patient did have palpitations with associated syncope while seated believe the patient would benefit from telemetry and observation. I did speak with the on-call hospitalist and the patient was admitted by Dr. Dodd. Past Med/Surg History Medical History (Updated 04/20/21 @ 21:56 by Loc Chang MD) Arthritis Diverticular disease Glaucoma b/l Hiatal hernia Hx of basal cell carcinoma s/p excision Multinodular goiter Osteoporosis Seizure Hx epilepsy- no seizure x years Surgical History History of elbow surgery RIGHT Hx laparoscopic cholecystectomy (08/06/19) Laparoscopic Cholecystectomy Dr. 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 current occupational status: retired How many Children do You have: 1 Feels Safe at Home: Yes Assistive Devices: Walker Allergies Allergies Allergy/AdvReac Type Severity Reaction Status Date / Time No Known Allergies Allergy Verified 04/20/21 16:43 Home Meds Home Medications Medication Instructions Recorded Confirmed B-complex with vitamin C [Super B 1 tab PO QAM 07/08/19 04/20/21 Complex-Vitamin C] Calcium 600 + D(3) 1 cap PO BID 07/08/19 04/20/21 carbamazepine [Tegretol XR] 400 mg PO BID 07/08/19 04/20/21 Centrum Silver Women 1 tab PO QAM 07/24/19 04/20/21 glucosamine-chondroitin [Osteo 1 tab PO BID 07/24/19 04/20/21 Bi-Flex] turmeric 400 mg PO QAM 07/24/19 04/20/21 ascorbic acid (vitamin C) [Vitamin 500 mg PO HS 08/06/19 04/20/21 C] Previous Rx's Medication Instructions Recorded meloxicam 7.5 mg PO DAILY PRN #0 tab 03/24/21 Results & Data (ED) Vital Signs Vital Signs - 24 hr 04/20/21 14:17 04/20/21 14:22 04/20/21 14:28 Pulse Rate - Lying Pulse Rate - Sitting Pulse Rate - Standing Pulse Rate 89 87 91 H Pulse Rate from SpO2 Sensor Pulse Rhythm Regular Pulse Strength Normal Respiratory Rate 30 H 13 16 Respiratory Effort / Characteristics Non-Labored Spontaneous Respiratory Depth Normal Blood Pressure - Lying Blood Pressure - Sitting Blood Pressure- Standing Blood Pressure 136/79 136/79 Blood Pressure Mean 98 98 Blood Pressure Position Sitting Pulse Oximetry 97 Oxygen Delivery Method Room Air Sepsis Recent Fever Within 48 Hours No Sepsis New/Unexplained Change in Mental Status N/A Sepsis Action Taken by Nursing No Action Required 04/20/21 14:30 04/20/21 14:31 04/20/21 14:40 Pulse Rate - Lying Pulse Rate - Sitting Pulse Rate - Standing Pulse Rate 92 H 91 H 90 Pulse Rate from SpO2 Sensor Pulse Rhythm Pulse Strength Respiratory Rate 19 23 21 Respiratory Effort / Characteristics Respiratory Depth Blood Pressure - Lying Blood Pressure - Sitting Blood Pressure- Standing Blood Pressure 139/86 Blood Pressure Mean 103 Blood Pressure Position Pulse Oximetry Oxygen Delivery Method Sepsis Recent Fever Within 48 Hours Sepsis New/Unexplained Change in Mental Status Sepsis Action Taken by Nursing 04/20/21 14:50 04/20/21 15:00 04/20/21 15:01 Pulse Rate - Lying Pulse Rate - Sitting Pulse Rate - Standing Pulse Rate 91 H 94 H 95 H Pulse Rate from SpO2 Sensor 94 H 95 H Pulse Rhythm Pulse Strength Respiratory Rate 20 18 19 Respiratory Effort / Characteristics Respiratory Depth Blood Pressure - Lying Blood Pressure - Sitting Blood Pressure- Standing Blood Pressure 132/80 Blood Pressure Mean 97 Blood Pressure Position Pulse Oximetry 98 99 98 Oxygen Delivery Method Sepsis Recent Fever Within 48 Hours Sepsis New/Unexplained Change in Mental Status Sepsis Action Taken by Nursing 04/20/21 15:10 04/20/21 15:20 04/20/21 15:30 Pulse Rate - Lying Pulse Rate - Sitting Pulse Rate - Standing Pulse Rate 94 H 93 H 95 H Pulse Rate from SpO2 Sensor 95 H 94 H 95 H Pulse Rhythm Pulse Strength Respiratory Rate 19 15 17 Respiratory Effort / Characteristics Respiratory Depth Blood Pressure - Lying Blood Pressure - Sitting Blood Pressure- Standing Blood Pressure 136/74 Blood Pressure Mean 94 Blood Pressure Position Pulse Oximetry 97 97 97 Oxygen Delivery Method Sepsis Recent Fever Within 48 Hours Sepsis New/Unexplained Change in Mental Status Sepsis Action Taken by Nursing 04/20/21 15:31 04/20/21 15:40 04/20/21 15:50 Pulse Rate - Lying Pulse Rate - Sitting Pulse Rate - Standing Pulse Rate 94 H 94 H 93 H Pulse Rate from SpO2 Sensor 93 H 94 H 93 H Pulse Rhythm Pulse Strength Respiratory Rate 17 19 14 Respiratory Effort / Characteristics Respiratory Depth Blood Pressure - Lying Blood Pressure - Sitting Blood Pressure- Standing Blood Pressure Blood Pressure Mean Blood Pressure Position Pulse Oximetry 98 98 97 Oxygen Delivery Method Sepsis Recent Fever Within 48 Hours Sepsis New/Unexplained Change in Mental Status Sepsis Action Taken by Nursing 04/20/21 16:00 04/20/21 16:01 04/20/21 16:10 Pulse Rate - Lying Pulse Rate - Sitting Pulse Rate - Standing Pulse Rate 98 H 95 H 92 H Pulse Rate from SpO2 Sensor 98 H 96 H 93 H Pulse Rhythm Pulse Strength Respiratory Rate 20 21 20 Respiratory Effort / Characteristics Respiratory Depth Blood Pressure - Lying Blood Pressure - Sitting Blood Pressure- Standing Blood Pressure 140/87 Blood Pressure Mean 104 Blood Pressure Position Pulse Oximetry 94 96 97 Oxygen Delivery Method Sepsis Recent Fever Within 48 Hours Sepsis New/Unexplained Change in Mental Status Sepsis Action Taken by Nursing 04/20/21 16:20 04/20/21 16:30 04/20/21 16:31 Pulse Rate - Lying Pulse Rate - Sitting Pulse Rate - Standing Pulse Rate 93 H 93 H 93 H Pulse Rate from SpO2 Sensor 93 H 93 H 94 H Pulse Rhythm Pulse Strength Respiratory Rate 15 16 17 Respiratory Effort / Characteristics Respiratory Depth Blood Pressure - Lying Blood Pressure - Sitting Blood Pressure- Standing Blood Pressure 136/87 Blood Pressure Mean 103 Blood Pressure Position Pulse Oximetry 97 95 96 Oxygen Delivery Method Sepsis Recent Fever Within 48 Hours Sepsis New/Unexplained Change in Mental Status Sepsis Action Taken by Nursing 04/20/21 16:40 04/20/21 16:41 04/20/21 16:50 Pulse Rate - Lying 96 H Pulse Rate - Sitting 99 H Pulse Rate - Standing 101 H Pulse Rate 101 H 97 H 93 H Pulse Rate from SpO2 Sensor 101 H 97 H 92 H Pulse Rhythm Pulse Strength Respiratory Rate 17 19 Respiratory Effort / Characteristics Respiratory Depth Blood Pressure - Lying 136/87 Blood Pressure - Sitting 151/86 H Blood Pressure- Standing 150/88 H Blood Pressure 151/86 H Blood Pressure Mean 107 Blood Pressure Position Pulse Oximetry 96 97 98 Oxygen Delivery Method Sepsis Recent Fever Within 48 Hours Sepsis New/Unexplained Change in Mental Status Sepsis Action Taken by Nursing 04/20/21 17:00 04/20/21 17:01 Pulse Rate - Lying Pulse Rate - Sitting Pulse Rate - Standing Pulse Rate 93 H 96 H Pulse Rate from SpO2 Sensor 93 H 95 H Pulse Rhythm Pulse Strength Respiratory Rate 16 19 Respiratory Effort / Characteristics Respiratory Depth Blood Pressure - Lying Blood Pressure - Sitting Blood Pressure- Standing Blood Pressure 144/70 H Blood Pressure Mean 94 Blood Pressure Position Pulse Oximetry 97 97 Oxygen Delivery Method Sepsis Recent Fever Within 48 Hours Sepsis New/Unexplained Change in Mental Status Sepsis Action Taken by Usp Medications Current Medication List: was personally reviewed by me Laboratory Data Attestation: I reviewed the patient's lab results. Result diagrams: 04/20/21 14:41 04/20/21 14:41 Lab Results 04/20/21 04/20/21 04/20/21 Range/Units 14:41 14:41 14:41 WBC 9.40 (4.8-10.8) K/uL RBC 4.32 (4.2-5.4) M/uL Hgb 14.1 (12.0-16.0) g/dL Hct 41.7 (37-47) % MCV 96.5 (80-100) fL MCH 32.6 (25-34) pg MCHC 33.8 (32-36) g/dL RDW Std Deviation 45.7 (36.4-46.3) fL RDW Coeff of Bhavesh 13.0 (11.5-14.5) % Plt Count 203 (130-400) K/uL MPV 10.3 (7.4-10.4) fL Immature Gran % (Auto) 0.2 % Neut % (Auto) 66.0 % Lymph % (Auto) 23.0 % Gates % (Auto) 8.6 % Eos % (Auto) 1.7 % Baso % (Auto) 0.5 % Neut # (Auto) 6.20 (1.4-6.5) K/uL Lymph # (Auto) 2.16 (1.2-3.4) K/uL Gates # (Auto) 0.81 H (0.11-0.59) K/uL Eos # (Auto) 0.16 (0-0.5) K/uL Baso # (Auto) 0.05 (0-0.2) K/uL Immature Gran # (Auto) 0.02 (0.00-0.02) K/uL Sodium 141 (136-145) mmol/L Potassium 3.9 (3.5-5.1) mmol/L Chloride 109 H (98-107) mmol/L Carbon Dioxide 27 (21-32) mmol/L Anion Gap 5.0 (3-11) BUN 22 H (7-18) mg/dl Creatinine 0.65 (0.6-1.2) mg/dl Est Cr Clr Drug Dosing Not Reportable Est GFR ( Amer) 102.1 ml/min Est GFR (Non-Af Amer) 88.1 ml/min BUN/Creatinine Ratio 33.5 H (10-20) Glucose 113 H (70-99) mg/dl Calcium 8.6 (8.5-10.1) mg/dl Magnesium 2.1 (1.8-2.4) mg/dl Total Bilirubin 0.2 (0.2-1) mg/dl AST 17 (15-37) U/L ALT 20 (12-78) U/L Alkaline Phosphatase 101 (45-117) U/L Troponin I < 0.015 (0-0.045) ng/ml Total Protein 6.5 (6.4-8.2) gm/dl Albumin 3.6 (3.4-5.0) gm/dl Globulin 2.9 (2.5-4.0) gm/dl Albumin/Globulin Ratio 1.2 (0.9-2) TSH 0.170 L (0.300-4.500) uIu/ml Free T4 1.02 (0.8-1.6) ng/dl Carbamazepine 12.7 H* (4-12) mcg/ml COVID-19 Eval Order SARS-CoV-2 (PCR) (Negative) 04/20/21 04/20/21 Range/Units 14:55 14:55 WBC (4.8-10.8) K/uL RBC (4.2-5.4) M/uL Hgb (12.0-16.0) g/dL Hct (37-47) % MCV (80-100) fL MCH (25-34) pg MCHC (32-36) g/dL RDW Std Deviation (36.4-46.3) fL RDW Coeff of Bhavesh (11.5-14.5) % Plt Count (130-400) K/uL MPV (7.4-10.4) fL Immature Gran % (Auto) % Neut % (Auto) % Lymph % (Auto) % Gates % (Auto) % Eos % (Auto) % Baso % (Auto) % Neut # (Auto) (1.4-6.5) K/uL Lymph # (Auto) (1.2-3.4) K/uL Gates # (Auto) (0.11-0.59) K/uL Eos # (Auto) (0-0.5) K/uL Baso # (Auto) (0-0.2) K/uL Immature Gran # (Auto) (0.00-0.02) K/uL Sodium (136-145) mmol/L Potassium (3.5-5.1) mmol/L Chloride (98-107) mmol/L Carbon Dioxide (21-32) mmol/L Anion Gap (3-11) BUN (7-18) mg/dl Creatinine (0.6-1.2) mg/dl Est Cr Clr Drug Dosing Est GFR ( Amer) ml/min Est GFR (Non-Af Amer) ml/min BUN/Creatinine Ratio (10-20) Glucose (70-99) mg/dl Calcium (8.5-10.1) mg/dl Magnesium (1.8-2.4) mg/dl Total Bilirubin (0.2-1) mg/dl AST (15-37) U/L ALT (12-78) U/L Alkaline Phosphatase (45-117) U/L Troponin I (0-0.045) ng/ml Total Protein (6.4-8.2) gm/dl Albumin (3.4-5.0) gm/dl Globulin (2.5-4.0) gm/dl Albumin/Globulin Ratio (0.9-2) TSH (0.300-4.500) uIu/ml Free T4 (0.8-1.6) ng/dl Carbamazepine (4-12) mcg/ml COVID-19 Eval Order Covid19 at [facility] SARS-CoV-2 (PCR) NEGATIVE (Negative) Administered Medications Glucosamine Sulfate (Glucosamine Sulfate 500 Mg Cap) 500 mg PO BID JUAN FRANCISCO Stop: 05/20/21 20:59 Last Admin: 04/20/21 21:22 Dose: 500 mg Documented by: [id number] Lactated Ringer's (Lr) 1,000 mls @ 75 mls/hr IV .[id number] ONE Stop: 04/21/21 10:30 Last Infusion: 04/20/21 21:35 Dose: 75 mls/hr Documented by: [id number] Infusion: 04/20/21 21:23 Dose: 0 mls/hr Documented by: [id number] Admin: 04/20/21 21:21 Dose: 75 mls/hr Documented by: [id number] Multivitamins/Minerals (Calcium 600mg + Vit D 400 Iu Tab) 1 tab PO BID JUAN FRANCISCO Stop: 05/20/21 20:59 Last Admin: 04/20/21 21:22 Dose: 1 tab Documented by: [id number] Discontinued Medications Sodium Chloride (Nss) 500 mls @ 999 mls/hr IV .[id number] JUAN FRANCISCO Stop: 04/20/21 15:00 Last Infusion: 04/20/21 15:20 Dose: 0 mls/hr Documented by: [id number] Admin: 04/20/21 14:49 Dose: 999 mls/hr Documented by: [id number] Imaging Data Radiologist's Impression: Chest X-Ray 04/20/21 14:28 XR chest 1V portable CLINICAL HISTORY: syncope COMPARISON STUDY: Chest radiograph March 22, 2021. FINDINGS: Lung volumes are normal. Lungs are clear. There is no pneumothorax or pleural effusion. Cardiomegaly is unchanged. Mediastinal contours are normal. There is no evidence for pulmonary edema. A large hiatal hernia is again noted. Mediastinal widening with rightward deviation of the trachea is due to a multinodular thyroid gland, unchanged. IMPRESSION: 1. No acute cardiopulmonary findings. 2. Large hiatal hernia. ACT 112: Negative or not required by law. Electronically signed by: Tato Epstein M.D. 04/20/2021 4:20 PM Discharge Plan Visit Data Chief Complaint: Syncope Stated Complaint: SYNCOPE ED Provider: Loc Chang Discharge Problem: Syncope, Dehydration Patient Disposition: Admitted As Inpatient Discharge Instructions Interventions: ED Discharge Assessment Last Done: 04/20/21 19:04 Discharge Problem: Syncope Qualifiers: Syncope type: unspecified Qualified Code(s): R55 - Syncope and collapse
[2021-04-20] MEDS ORDERED: SODIUM CHLORIDE 0.9% 500 ML IV SCH (14:30)
[2021-04-20 15:06] LABS: Basophils # (auto) 0.05 K/uL (0-0.2); Basophils % (auto) 0.5 %; Eosinophils # (auto) 0.16 K/uL (0-0.5); Eosinophils % (auto) 1.7 %; Hematocrit (blood only) 41.7 % (37-47); Hemoglobin 14.1 g/dL (12.0-16.0); Immature Granulocytes # (auto) 0.02 K/uL (0.00-0.02); Immature Granulocytes % (auto) 0.2 %; Lymphocytes # (auto) 2.16 K/uL (1.2-3.4); Mean Corpuscular Hemoglobin 32.6 pg (25-34); Mean Corpuscular Hgb Conc 33.8 g/dL (32-36); Mean Corpuscular Volume 96.5 fL (80-100); Mean Platelet Volume 10.3 fL (7.4-10.4); Monocytes # (auto) 0.81 K/uL (0.11-0.59); Monocytes % (auto) 8.6 %; Platelet Count 203 K/uL (130-400); RDW Standard Deviation 45.7 fL (36.4-46.3); Red Blood Count 4.32 M/uL (4.2-5.4)
[2021-04-20 15:30] LABS: Alanine Aminotransferase 20 U/L (12-78); Albumin Level 3.6 gm/dl (3.4-5.0); Aspartate Aminotransferase 17 U/L (15-37); BUN Creatinine Ratio 33.5 (10-20); Blood Urea Nitrogen 22 mg/dl (7-18); Calcium 8.6 mg/dl (8.5-10.1); Carbon Dioxide 27 mmol/L (21-32); Chloride 109 mmol/L (98-107); Est GFR (African American) 102.1 ml/min; Est GFR (Non-African American) 88.1 ml/min; Glucose 113 mg/dl (70-99); Magnesium 2.1 mg/dl (1.8-2.4); Potassium 3.9 mmol/L (3.5-5.1); Sodium 141 mmol/L (136-145)
[2021-04-20 15:41] LABS: Albumin Globulin Ratio 1.2 (0.9-2); Alkaline Phosphatase 101 U/L (45-117); Bilirubin,Total 0.2 mg/dl (0.2-1); Globulin 2.9 gm/dl (2.5-4.0); Total Protein 6.5 gm/dl (6.4-8.2); Troponin I < 0.015 ng/ml (0-0.045)
[2021-04-20 15:54] LABS: T4 Free Thyroxine 1.02 ng/dl (0.8-1.6)
--- NOTE | 2021-04-20 16:21 | XRay Report ---
XR chest 1V portable CLINICAL HISTORY: syncope COMPARISON STUDY: Chest radiograph March 22, 2021. FINDINGS: Lung volumes are normal. Lungs are clear. There is no pneumothorax or pleural effusion. Car diomegaly is unchanged. Mediastinal contours are normal. There is no evidence for pulmonary edema. A large hiatal hernia is again noted. Mediastinal widening with rightward deviation of the trachea is d ue to a multinodular thyroid gland, unchanged. IMPRESSION: 1. No acute cardiopulmonary findings. 2. Large hiatal hernia. ACT 112: Negative or not required by law. Electronically signed by: Tato Epstein M.D. 04/20/2021 4:20 PM
--- NOTE | 2021-04-20 16:48 | History & Physical Report ---
Date of Service April 20, 2021 Assessment & Plan (1) Syncope: -Admit to [facility] with telemetry -Check 2D echo -Fall precautions, PT/OT consults -orthostatics with all vital signs -H&H is stable at 14.1/41.7, guaiac all stools, does take meloxicam for pain relief, BUN is slightly elevated at 22 compared to previous admission was 11 on discharge. Cr is stable. - will recheck H&H tonight. - TSH -Tegratol for seizure - reviewed med adverse effects per uptodate: has undefined frequency adverse reaction including AV block, cardiac arrhythmia, exacerbation of htn, and syncope. -- possible tegratol interaction if no other cause determined. Consider neurology involvement for other medication recommendations if this is the cause. (2) Seizure disorder: -History of such, takes Tegretol as an outpatient, level on admission = 12.7, slightly elevated. -There was no seizure-like cavity during her syncopal event, no loss of bowel or bladder incontinence, no tonic-clonic movements, no tongue biting (3) HTN (hypertension): -History of such, the patient is not on antihypertensives. (4) Ambulatory dysfunction: -Was recently admitted in early March for ambulatory dysfunction and weakness, completed rehab stay at [facility], will reconsult PT/OT (5) Osteoporosis: -History of receiving Reclast in the past, continue calcium, vitamin D, glucosamine chondroitin, MVI (6) DVT prophylaxis: - teds, scds CODE: DNR/DNI Dispo: From home, likely to remain in the hospital x 2 days. History of Present Illness Primary Care Provider: Elvia Rodriguez MD This is a 75 yo F with PMhx of seizure disorder, multinodular goiter, peripheral neuropathy, anxiety, and OA who presents from [facility] after sitting at the community room table playing cards and had a syncopal episode. She recalls feeling palpitations and not feeling well and was thinking about getting up from the table to go back to her apartment. She then woke up to voices, one of her friends saying her heart was beating fast and slowly came to. She cannot recall how long she was out for, and her son-in-law who is present at bedside is unaware either. Patient did not attempt to stand up whenever she was not feeling well but instead remained seated. Diet has been balanced, eating and drinking well, including at least 1 boost per day. Last time she was admitted, slightly dehydrated so has been trying to increase her water consumption. She denies feeling heart palpitations currently for currently. She denies any recent falls or trauma. Patient has been working with OT and has been doing quite well, was told recently that she only had 1 more session to go and would be "discharged". Patient was previously admitted to [facility] from 03/22-03/24 for weakness and ambulatory dysfunction. She was discharged to [facility] and stayed in their facility until 04/01 where she was discharged home with home health services for PT. Allergies Allergy/AdvReac Type Severity Reaction Status Date / Time No Known Allergies Allergy Verified 04/20/21 16:43 Home Medications Medication Instructions Recorded Confirmed Type B-complex with vitamin C [Super B 1 tab PO QAM 07/08/19 04/20/21 History Complex-Vitamin C] Calcium 600 + D(3) 1 cap PO BID 07/08/19 04/20/21 History carbamazepine [Tegretol XR] 400 mg PO BID 07/08/19 04/20/21 History Centrum Silver Women 1 tab PO QAM 07/24/19 04/20/21 History glucosamine-chondroitin [Osteo 1 tab PO BID 07/24/19 04/20/21 History Bi-Flex] turmeric 400 mg PO QAM 07/24/19 04/20/21 History ascorbic acid (vitamin C) [Vitamin 500 mg PO HS 08/06/19 04/20/21 History C] meloxicam 7.5 mg PO DAILY PRN #0 tab 03/24/21 04/20/21 Rx Past Med/Surg History Medical History (Updated 04/20/21 @ 21:56 by Loc Chang MD) Arthritis Diverticular disease Glaucoma b/l Hiatal hernia Hx of basal cell carcinoma s/p excision Multinodular goiter Osteoporosis Seizure Hx epilepsy- no seizure x years Surgical History History of elbow surgery RIGHT Hx laparoscopic cholecystectomy (08/06/19) Laparoscopic Cholecystectomy Dr. 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 Eyes: No diplopia, no worsening or blurred vision ENT: normal hearing, no trouble swallowing Respiratory: No cough, sputum, dyspnea at rest or on exertion Cardiovascular: No chest pain, tightness. + palpitations as per HPI. Abdomen: No pain, nausea, vomiting, diarrhea or constipation Musculoskeletal: No joint pain, calf pain, swelling Neurologic: As per HPI, No weakness, numbness/tingling, uses a walker with ambulation typically. Psychiatric: No anxiety or depression Skin: No rash or itch Physical Exam Physical Exam: General: awake, alert, no apparent distress Head: Normocephalic, atraumatic ENT: PERRL, EOMI, no pharyngeal exudate, mucous membranes moist Chest: Clear to auscultation, on room air, no adventitious breath sounds Cardiac: Regular rhythm, slightly tachycardic with heart rate at 93, no murmur, no JVD, normal peripheral pulses, good capillary refill Abdominal: NABS x 4 quadrants, soft, nondistended, nontender to palpation, no rebound or guarding Extremities: Normal inspection, no peripheral edema or erythema, calfs nontender to palpation Psych: Normal mood and affect Neuro: AAO x 3, strength intact bilaterally and rated 5/5, no motor deficits, speech is clear, no peripheral sensory deficits, steady gait but required my assistance to get to bathroom safely. Results & Data Results & Data ([facility]) Vital Signs (Past 12 Hours) Vital Signs Pulse Resp BP Pulse Ox 04/20/21 15:50 93 H 14 97 04/20/21 15:40 94 H 19 98 04/20/21 15:31 94 H 17 98 04/20/21 15:30 95 H 17 136/74 97 04/20/21 15:20 93 H 15 97 04/20/21 15:10 94 H 19 97 04/20/21 15:01 95 H 19 98 04/20/21 15:00 94 H 18 132/80 99 04/20/21 14:50 91 H 20 98 04/20/21 14:40 90 21 04/20/21 14:31 91 H 23 04/20/21 14:30 92 H 19 139/86 04/20/21 14:28 91 H 16 04/20/21 14:22 87 13 136/79 04/20/21 14:17 89 30 H 136/79 97 Diagnostic Findings Chest X-Ray 04/20/21 14:28 XR chest 1V portable CLINICAL HISTORY: syncope COMPARISON STUDY: Chest radiograph March 22, 2021. FINDINGS: Lung volumes are normal. Lungs are clear. There is no pneumothorax or pleural effusion. Cardiomegaly is unchanged. Mediastinal contours are normal. There is no evidence for pulmonary edema. A large hiatal hernia is again noted. Mediastinal widening with rightward deviation of the trachea is due to a multinodular thyroid gland, unchanged. IMPRESSION: 1. No acute cardiopulmonary findings. 2. Large hiatal hernia. ACT 112: Negative or not required by law. Electronically signed by: Tato Epstein M.D. 04/20/2021 4:20 PM ECG Rhythm: sinus tachycardia Code Status & VTE Plan Code Status DNR/DNI
[2021-04-20] MEDS ORDERED: ONDANSETRON INJ 2 MG/ML 2 ML VIAL IV PRN (20:19)
[2021-04-20] MEDS ORDERED: ACETAMINOPHEN 325 MG TAB PO PRN (20:19)
--- NOTE | 2021-04-20 21:10 | Communication Note ---
Date of Service: April 20, 2021 Made aware by RN of Tegretol level of 2.7. AP Supratherapeutic carbamazepine level History seizure disorder Hold Tegretol for now Recheck level in a.m. Will relay to AM provider.
[2021-04-20] MEDS ORDERED: LACTATED RINGER'S 1,000 ML IV ONE (21:11)
[2021-04-20] MEDS: GLUCOSAMINE SULFATE 500 MG CAP PO SCH (21:22)
[2021-04-20] MEDS: CALCIUM 600MG + VIT D 400 IU TAB PO SCH (21:22)
[2021-04-20 22:04] LABS: Hematocrit (blood only) 42.2 % (37-47); Hemoglobin 14.4 g/dL (12.0-16.0)
[2021-04-21 06:54] LABS: Hematocrit (blood only) 39.6 % (37-47); Hemoglobin 13.4 g/dL (12.0-16.0); Mean Corpuscular Hemoglobin 32.6 pg (25-34); Mean Corpuscular Hgb Conc 33.8 g/dL (32-36); Mean Corpuscular Volume 96.4 fL (80-100); Mean Platelet Volume 9.2 fL (7.4-10.4); Platelet Count 269 K/uL (130-400); RDW Coefficient of Variation 13.2 % (11.5-14.5); RDW Standard Deviation 45.9 fL (36.4-46.3); Red Blood Count 4.11 M/uL (4.2-5.4)
[2021-04-21 07:34] LABS: Albumin Level 3.2 gm/dl (3.4-5.0); BUN Creatinine Ratio 31.1 (10-20); Calcium 8.7 mg/dl (8.5-10.1); Creatinine Clr Calc Pharmacy 92.9 ml/min; Est GFR (African American) 110.6 ml/min; Est GFR (Non-African American) 95.4 ml/min; Potassium 3.8 mmol/L (3.5-5.1)
[2021-04-21 07:37] LABS: Albumin Globulin Ratio 1.2 (0.9-2); Bilirubin,Total 0.5 mg/dl (0.2-1); Globulin 2.7 gm/dl (2.5-4.0); Total Protein 5.9 gm/dl (6.4-8.2)
[2021-04-21] MEDS: CALCIUM 600MG + VIT D 400 IU TAB PO SCH ×2 (09:03→20:06)
[2021-04-21] MEDS: GLUCOSAMINE SULFATE 500 MG CAP PO SCH ×2 (09:03→20:06)
[2021-04-21] MEDS: CEROVITE ADV FORMULA TAB PO SCH (09:03)
--- NOTE | 2021-04-21 12:19 | Electrocardiogram Report ---
Test Reason : Blood Pressure : / mmHG Vent. Rate : 087 BPM Atrial Rate : 087 BPM P-R Int : 178 ms QRS Dur : 098 ms QT Int : 380 ms P-R-T Axes : 042 019 032 degrees QTc Int : 457 ms Normal sinus rhythm Normal ECG When compared with ECG of 22-MAR-2021 12:09, No significant change was found Confirmed by Zhao Arita ([id number]) on 04/21/2021 12:19:20 PM Referred By: REFERRED SELF Confirmed By:Zhao Arita
--- NOTE | 2021-04-21 13:44 | Consultation Report ---
NEUROLOGY CONSULTATION DATE OF CONSULTATION: 04/21/2021 CHIEF COMPLAINT: Syncope. HISTORY OF PRESENT ILLNESS: A 75-year-old woman with a history of seizure disorder, on Tegretol, peripheral neuropathy, anxiety and osteoarthritis, [facility] sitting at the community room table playing cards and had a syncopal episode. The patient notes she felt chest palpitations and she was not feeling well and was thinking about getting up from the table to go back to her apartment. She then woke up and heard voices saying that her heart was beating fast and slowly came to her. She does not recall how long she was out for. There was no witnessed seizure-like activity. The patient was previously admitted to [facility] in the past from 03/22 to 03/24 for weakness and ambulatory dysfunction. She was discharged to [facility] and stayed in their facility until 04/01 where she was discharged home with home health services and physical therapy. The patient was admitted for syncopal episode. On admission, she was found to have an elevated Tegretol level. Neurology was consulted upon admission. ALLERGIES: No known drug allergies. HOME MEDICATIONS: Complex B vitamin, calcium, Tegretol 400 mg twice daily, Centrum Silver vitamin, vitamin C, meloxicam. PAST MEDICAL HISTORY: Arthritis, diverticular disease, glaucoma, hiatal hernia, basal cell carcinoma, osteoporosis, seizure or history of epilepsy -- no seizures for a number of years. PAST SURGICAL HISTORY: History of elbow surgery, laparoscopic cholecystectomy, basal cell carcinoma excision. FAMILY HISTORY: Daughter had breast cancer. SOCIAL HISTORY: Never a smoker. Drinks occasional wine. She lives with her daughter and family. REVIEW OF SYSTEMS: Review of systems was pertinent for syncope. Otherwise, she noted palpitations. All other review of systems is negative. PHYSICAL EXAMINATION: VITAL SIGNS: Blood pressure 110/74, pulse is 86, respiratory rate 16, temperature 36.5 degrees Celsius, oxygen saturation is 93% on room air. GENERAL: The patient appears normally developed, well nourished. HEENT: Head is normocephalic and atraumatic. Normal eyelids. Normal conjunctivae. LUNGS: Normal respiratory effort. HEART: Normal cardiac pulses. ABDOMEN: Nondistended. SKIN: No skin rash. PSYCHIATRIC: Normal mood. NEUROLOGIC: She is awake, alert, oriented to person, place, and time. Attention is normal. Knowledge is appropriate. Language; no aphasia, no dysarthria. No visual defect on confrontation. Pupils are symmetric. Extraocular muscles are intact. Facial sensation intact. No facial asymmetry. Intact hearing. Palate is symmetric. Good shoulder shrug. Tongue is midline. Gait evaluation is deferred. No tremor, no ataxia with [id number] testing. Sensation is intact to light touch. Muscle tone is normal. Muscle exam 5/5 in the upper and lower extremities. Reflexes; negative Anthony sign, no ankle clonus. DIAGNOSTIC TESTING AND LABORATORY VALUES: WBC 8.3, hemoglobin 13.4, platelet count 269. Sodium 143, potassium 3.8, chloride 114, carbon dioxide 27, BUN is 16, creatinine 0.51. AST is 12, ALT 17. Troponin is negative. TSH 0.170, which was low. Free T4 was normal. Urinalysis was not performed. Carbamazepine level on 04/20 came back at 12.7, which was elevated, a normal reference range for that value is between 4 and 12. Repeat carbamazepine was [address] noncontrast showed no evidence of hemorrhage, mass effect or evidence of acute territorial ischemia. Age-related involutional changes. ASSESSMENT AND PLAN: A 75-year-old woman with a history of epilepsy, currently well controlled on Tegretol 400 mg twice daily, admitted with a presumed vasovagal or syncopal episode, which would be supported by the premonitory symptoms. Vital signs have remained stable. Head CT noncontrast is reassuring and shows no evidence of acute intracranial abnormality. Tegretol level obtained on admission was elevated at 12.7, which was marginally above a normal limit. My recommendation would be to continue current dose of Tegretol 400 mg twice daily. The patient will benefit from a trough level as an outpatient. Otherwise, no additional recommendations from neurology. Please contact me with any additional questions or concerns. Job ID: [id number] [facility]
--- NOTE | 2021-04-21 15:54 | Electrocardiogram Report ---
Test Reason : Blood Pressure : / mmHG Vent. Rate : 079 BPM Atrial Rate : 079 BPM P-R Int : 178 ms QRS Dur : 100 ms QT Int : 394 ms P-R-T Axes : 035 028 047 degrees QTc Int : 451 ms Normal sinus rhythm Incomplete right bundle branch block Borderline ECG When compared with ECG of 20-APR-2021 14:21, (unconfirmed) Incomplete right bundle branch block is now Present Confirmed by Zhao Arita ([id number]) on 04/21/2021 3:54:00 PM Referred By: REFERRED SELF Confirmed By:Zhao Arita
--- NOTE | 2021-04-21 18:39 | Hospitalist Progress Note ---
Date of Service April 21, 2021 Assessment & Plan (1) Syncope: Present on admission after developed palpitation feeling and syncope Etiology unknown No arrhythmia noted on cage maker Echo showed LV with normal wall motion with normal ejection fraction No focal neuro deficit on exam Neuro on board Recommended to resume Tegretol No additional neurological testing as per neuro Clinically stable (2) Seizure disorder: History of such, takes Tegretol as an outpatient, level on admission = 12.7, slightly elevated. There was no seizure-like cavity during her syncopal event, no loss of bowel or bladder incontinence, no tonic-clonic movements, no tongue biting Neuro recommended to continue Tegretol 400 mg twice daily Will need Tegretol trough as an outpatient (3) HTN (hypertension): BP stable (4) Ambulatory dysfunction: Was recently admitted in early March for ambulatory dysfunction and weakness, completed rehab stay at [facility] Continue PT/OT (5) Osteoporosis: continue calcium, vitamin D, glucosamine chondroitin, MVI Abnormal TSH TSH is low with normal free T4 We will continue monitor (6) DVT prophylaxis: - teds, scds CODE: DNR/DNI Dispo: Possible discharge home tomorrow Admission and Anticipated Discharge Date Admission Date: April 20, 2021 Subjective Patient was seen and examined for follow-up of syncopal like symptoms Lying in bed with no acute distress Patient said that she feels fine Denies any chest pain, palpitation, dizziness, shortness of breath. Review of Systems Review of Systems: All systems reviewed & are unremarkable except as noted in Subjective Physical Exam Physical Exam: General- No acute distress Head- atraumatic Eyes- PERRL, EOMI, ENT- oropharynx clear Neck- supple, no JVD Lungs- clear to auscultation Heart- regular rhythm; no murmur Abdomen- normal bowel sounds, soft, nontender Extremities- no calf tenderness Neuro- alert, oriented x 3; PERRL, EOMI; no facial palsy; no dysarthria Skin- warm & dry Results & Data Results & Data ([facility]) Vital Signs (Past 12 Hours) Vital Signs Temp Pulse Pulse Resp BP Pulse Ox 04/21/21 17:03 88 04/21/21 15:07 36.9 C 82 16 126/74 96 04/21/21 12:09 36.7 C 79 16 130/76 96 04/21/21 08:15 86 04/21/21 07:56 36.5 C 78 16 110/74 93
[2021-04-22 06:59] LABS: Hematocrit (blood only) 39.2 % (37-47); Hemoglobin 13.2 g/dL (12.0-16.0); Mean Corpuscular Hemoglobin 32.7 pg (25-34); Mean Corpuscular Hgb Conc 33.7 g/dL (32-36); Mean Platelet Volume 9.3 fL (7.4-10.4); Platelet Count 259 K/uL (130-400); RDW Coefficient of Variation 13.2 % (11.5-14.5); RDW Standard Deviation 46.7 fL (36.4-46.3); Red Blood Count 4.04 M/uL (4.2-5.4); White Blood Count 8.25 K/uL (4.8-10.8)
[2021-04-22 07:32] LABS: BUN Creatinine Ratio 32.1 (10-20); Calcium 8.7 mg/dl (8.5-10.1); Creatinine Clr Calc Pharmacy 94.8 ml/min; Est GFR (African American) 111.3 ml/min; Potassium 4.1 mmol/L (3.5-5.1)
[2021-04-22 07:34] LABS: Albumin Globulin Ratio 1.1 (0.9-2); Bilirubin,Total 0.5 mg/dl (0.2-1); Globulin 2.8 gm/dl (2.5-4.0); Total Protein 5.8 gm/dl (6.4-8.2)
[2021-04-22] MEDS: CEROVITE ADV FORMULA TAB PO SCH (08:27)
[2021-04-22] MEDS: GLUCOSAMINE SULFATE 500 MG CAP PO SCH (08:27)
[2021-04-22] MEDS: CALCIUM 600MG + VIT D 400 IU TAB PO SCH (08:28)
--- NOTE | 2021-04-22 15:30 | Discharge Summary ---
Date of Service April 22, 2021 Admission HPI Per Admitting Provider This is a 75 yo F with PMhx of seizure disorder, multinodular goiter, peripheral neuropathy, anxiety, and OA who [facility] sitting at the community room table playing cards and had a syncopal episode. She recalls feeling palpitations and not feeling well and was thinking about getting up from the table to go back to her apartment. She then woke up to voices, one of her friends saying her heart was beating fast and slowly came to. She cannot recall how long she was out for, and her son-in-law who is present at bedside is unaware either. Patient did not attempt to stand up whenever she was not feeling well but instead remained seated. Diet has been balanced, eating and drinking well, including at least 1 boost per day. Last time she was admitted, slightly dehydrated so has been trying to increase her water consumption. She denies feeling heart palpitations currently for currently. She denies any recent falls or trauma. Patient has been working with OT and has been doing quite well, was told recently that she only had 1 more session to go and would be "discharged". Patient was previously admitted to [facility] from 03/22-03/24 for weakness and ambulatory dysfunction. She was discharged to [facility] and stayed in their facility until 04/01 where she was discharged home with home health services for PT. Admission Exam Per Admitting Provider General: awake, alert, no apparent distress Head: Normocephalic, atraumatic ENT: PERRL, EOMI, no pharyngeal exudate, mucous membranes moist Chest: Clear to auscultation, on room air, no adventitious breath sounds Cardiac: Regular rhythm, slightly tachycardic with heart rate at 93, no murmur, no JVD, normal peripheral pulses, good capillary refill Abdominal: NABS x 4 quadrants, soft, nondistended, nontender to palpation, no rebound or guarding Extremities: Normal inspection, no peripheral edema or erythema, calfs nontender to palpation Psych: Normal mood and affect Neuro: AAO x 3, strength intact bilaterally and rated 5/5, no motor deficits, speech is clear, no peripheral sensory deficits, steady gait but required my assistance to get to bathroom safely. Principal Diagnosis Syncope: Seizure disorder: HTN (hypertension): Ambulatory dysfunction: Discharge Exam General- No acute distress Head- atraumatic Eyes- PERRL, EOMI, ENT- oropharynx clear Neck- supple, no JVD Lungs- clear to auscultation Heart- regular rhythm; no murmur Abdomen- normal bowel sounds, soft, nontender Extremities- no calf tenderness Neuro- alert, oriented x 3; PERRL, EOMI; no facial palsy; no dysarthria Skin- warm & dry Discharge Data Allergies Allergy/AdvReac Type Severity Reaction Status Date / Time No Known Allergies Allergy Verified 04/20/21 16:43 Consultations 04/20/21 16:44 ED Decision to Admit Stat 04/21/21 07:29 Consult Neurology Routine Ordered Studies XR chest 1V portable CLINICAL HISTORY: syncope COMPARISON STUDY: Chest radiograph March 22, 2021. FINDINGS: Lung volumes are normal. Lungs are clear. There is no pneumothorax or pleural effusion. Cardiomegaly is unchanged. Mediastinal contours are normal. There is no evidence for pulmonary edema. A large hiatal hernia is again noted. Mediastinal widening with rightward deviation of the trachea is due to a multinodular thyroid gland, unchanged. IMPRESSION: 1. No acute cardiopulmonary findings. 2. Large hiatal hernia. ACT 112: Negative or not required by law. Electronically signed by: Tato Epstein M.D. 04/20/2021 4:20 PM Dictated: 04/20/218Transcribed: 04/20/211617 Hospital Course (1) Syncope: Present on admission after developed palpitation feeling and syncope Etiology unknown No arrhythmia noted on shelter monitor Echo showed LV with normal wall motion with normal ejection fraction No focal neuro deficit on exam Neuro on board Recommended to resume Tegretol No additional neurological testing as per neuro Clinically stable (2) Seizure disorder: History of such, takes Tegretol as an outpatient, level on admission = 12.7, slightly elevated. There was no seizure-like cavity during her syncopal event, no loss of bowel or bladder incontinence, no tonic-clonic movements, no tongue biting Neuro recommended to continue Tegretol 400 mg twice daily Will need Tegretol trough as an outpatient (3) HTN (hypertension): BP stable (4) Ambulatory dysfunction: Was recently admitted in early March for ambulatory dysfunction and weakness, completed rehab stay at [facility] Continue PT/OT (5) Osteoporosis: continue calcium, vitamin D, glucosamine chondroitin, MVI Abnormal TSH TSH is low with normal free T4 We will continue monitor (6) DVT prophylaxis: - teds, scds CODE: DNR/DNI Dispo: Possible discharge home tomorrow Total Time Total Time Spent Total Time Spent (In Minutes): 35 minutes Total Time Includes: Examination of the Patient, Discharge Planning, Medication Reconciliation, Communication With Other Providers and Other Discharge Plan Discharge Items Patient Disposition: Home - Home Health Services Reason For Visit: SYNCOPE Discharge Diagnosis: Syncope Activity: Resume your previous activity Non-emergency contact: Primary Care Provider Call non-emergency contact if: you have any medication questions Follow-up/Referrals: Elvia Rodriguez MD [Primary Care Provider] - Diet: Heart Healthy Addtl Attending Provider Instructions: Follow up with your primary care provider Dr. Rodriguez within 1 week Continue physical and occupational therapy Fall precaution Seizure precaution Check TSH in 4 weeks to monitor thyroid function Check Tegretol trough level as an outpatient in 1 week ( your provider will ord er it) You will need to get arranged for an holter monitor outpatient if symptom reoccur (your provider can arrange it ) Pending Studies at Discharge: No Stand-Alone Forms: My [employer], Smoking Cessation Medications and DC Order Prescriptions: Continued carbamazepine [Tegretol XR] 400 mg Tablet Extended Release 12 Hr 400 mg PO BID RF: 0 B-complex with vitamin C [Super B Complex-Vitamin C] Tablet 1 tab PO QAM RF: 0 Calcium 600 + D(3) 600 mg calcium- 200 unit Capsule 1 cap PO BID RF: 0 glucosamine-chondroitin [Osteo Bi-Flex] 250-200 mg Tablet 1 tab PO BID RF: 0 Centrum Silver Women 8 mg iron-400 mcg-300 mcg Tablet 1 tab PO QAM RF: 0 turmeric 400 mg Capsule 400 mg PO QAM RF: 0 ascorbic acid (vitamin C) [Vitamin C] 500 mg Tablet 500 mg PO HS RF: 0 meloxicam 7.5 mg tablet 7.5 mg PO DAILY PRN (Reason: pain) Qty: 0 RF: 0 Discharge Orders: Discharge Order (Routine); Ordered 04/22/21 Ordered By: Beverly Tuttle Admission Data Admit Date/Time: 04/20/21 17:08 Attending Provider: Beverly Tuttle Admit Provider: Beverly Tuttle Primary Care Provider: Elvia Rodriguez Other Providers: Bethel Dodd ; Gilberto Tran ; [facility] Other Interventions: Discharge Summary Assessment (RN) Last Done: 04/22/21 15:31
== END 2021-04-22 16:15 | disposition home health service (06) | DRG 312 ==
LOC: ED 14:10 → 2N 17:08

== ENCOUNTER 2022-04-16 14:16 | Inpatient (IN) ==
[~2022-04-16 14:16] MED LIST: ATROPINE SULFATE 0.1 MG/ML 10ML SYR IV ONE
[2022-04-16 15:52] LABS: Basophils # (auto) 0.01 K/uL (0-0.2); Basophils % (auto) 0.1 %; Eosinophils # (auto) 0.01 K/uL (0-0.5); Eosinophils % (auto) 0.1 %; Hematocrit (blood only) 46.1 % (37-47); Immature Granulocytes # (auto) 0.08 K/uL (0.00-0.02); Immature Granulocytes % (auto) 0.5 %; Lymphocytes # (auto) 1.77 K/uL (1.2-3.4); Lymphocytes % (auto) 11.5 %; Mean Corpuscular Hemoglobin 32.7 pg (25-34); Mean Corpuscular Hgb Conc 34.7 g/dL (32-36); Mean Corpuscular Volume 94.1 fL (80-100); Mean Platelet Volume 9.1 fL (7.4-10.4); Monocytes # (auto) 2.65 K/uL (0.11-0.59); Monocytes % (auto) 17.2 %; Neutrophils # (auto) 10.85 K/uL (1.4-6.5); Neutrophils % (auto) 70.6 %; Platelet Count 314 K/uL (130-400); RDW Coefficient of Variation 13.1 % (11.5-14.5); RDW Standard Deviation 45.5 fL (36.4-46.3); White Blood Count 15.37 K/uL (4.8-10.8)
--- NOTE | 2022-04-16 16:00 | XRay Report ---
XR chest 1V portable HISTORY: 76 years-old Female weakness acute weakness COMPARISON: Chest radiograph 04/20/2021 TECHNIQUE: Portable AP view of the chest FINDINGS: The cardiac silhouette is enlarged. Large hiatal hernia. Ill-defined opacity of the right lung apex. No pneumothorax. Blunting of the costophrenic angles with mild bibasilar opacities. Degenerative ordoñez ges of the shoulders and spine. IMPRESSION: 1. Cardiomegaly without overt pulmonary edema. 2. Small pleural effusions with mild bibasilar opacities. 3. Ill-defined right apical density may be secondary to summation density versus airspace disease. ACT 112: Negative or not required by law. The above report was generated using voice recognition software. It may contain grammatical, syntax o r spelling errors. Electronically signed by: Sulaiman Torres M.D. 04/16/2022 3:58 PM
[2022-04-16 16:14] LABS: Albumin Globulin Ratio 1.8 (0.9-2); Albumin Level 4.2 gm/dl (3.4-5.0); BUN Creatinine Ratio 49.2 (10-20); Bilirubin,Total 0.4 mg/dl (0.2-1.0); Calcium 9.1 mg/dl (8.5-10.1); Creatinine Clr Calc Pharmacy 71.3 ml/min; Est GFR (African American) 101.4 ml/min; Est GFR (Non-African American) 87.5 ml/min; Globulin 2.4 gm/dl (2.5-4.0); Total Protein 6.6 gm/dl (6.0-8.3)
[2022-04-16 16:30] LABS: Thyroid Stimulating Hormone 0.07 uIu/ml (0.300-4.500)
[2022-04-16] MEDS ORDERED: AZITHROMYCIN 250 MG TAB PO ONE (16:51)
[2022-04-16] MEDS ORDERED: cefTRIAXone SODIUM 2,000 MG/70 ML BAG IV STA (16:51)
[2022-04-16] MEDS ORDERED: RAPID SEQUENCE INDUCTION BAG ONE (17:02)
[2022-04-16 17:07] LABS: T4 Free Thyroxine 0.89 ng/dl (0.61-1.60)
[2022-04-16] MEDS ORDERED: ATROPINE SULFATE 0.1 MG/ML 10ML SYR IV STA (17:09)
[2022-04-16] MEDS ORDERED: ONDANSETRON INJ 2 MG/ML 2 ML VIAL IV STA (17:09)
[2022-04-16] MEDS ORDERED: GI COCKTAIL ED USE PO ONE ×2 (17:09→17:10)
[2022-04-16] MEDS ORDERED: ONDANSETRON INJ 2 MG/ML 2 ML VIAL ONE (17:09)
[2022-04-16] MEDS ORDERED: AZITHROMYCIN 500 MG in DEXTROSE 5% 250 ML IV STA (17:10)
--- NOTE | 2022-04-16 18:55 | Emergency Department Note ---
History of Present Illness General Chief complaint: Weakness Time Seen by Provider: 04/16/22 16:15 History of Present Illness Provider complaint: Weakness Onset (ago): day(s) 1 Associated symptoms: + weakness; no chest pain, no cough, no fever/chills, no headaches, no nausea/vomiting or no shortness of breath 76-year-old female presents emergency department with daughter at bedside for weakness. Patient reports since yesterday she has been feeling increasingly weak. She reports polyuria. No dysuria. No hematuria. No chest pain or difficulty breathing. No cough. No fevers. Patient is vaccine against COVID- 19 and fully boosted. Home Medications Medication Instructions Recorded Confirmed Type calcium carbonate 600 mg-vitamin 1 cap PO BID 07/08/19 04/16/22 History D3 5 mcg (200 unit) capsule (Calcium 600 + D(3)) carbamazepine 400 mg 400 mg PO BID 07/08/19 04/16/22 History tablet,extended release,12 hr (Tegretol XR) glucosamine-chondroitin 250 mg-200 1 tab PO BID 07/24/19 04/16/22 History mg tablet (Osteo Bi-Flex) multivit with 1 tab PO QAM 07/24/19 04/16/22 History oetcaqwj-rzqp-RX-lutein 8 mg iron-400 mcg-300 mcg tablet (Centrum Silver Women) turmeric 400 mg capsule 400 mg PO QAM 07/24/19 04/16/22 History ascorbic acid (vitamin C) 500 mg 500 mg PO HS 08/06/19 04/16/22 History tablet (Vitamin C) meloxicam 7.5 mg tablet 7.5 mg PO DAILY 04/16/22 04/16/22 History vitamin B complex-folic acid 2,000 1 cap PO DAILY 04/16/22 04/16/22 History mcg capsule Allergies Allergy/AdvReac Type Severity Reaction Status Date / Time No Known Allergies Allergy Verified 04/16/22 17:22 Past Med/Surg History Medical History (Updated 04/16/22 @ 18:58 by Pieter Gupta) Arthritis COPD (chronic obstructive pulmonary disease) Diverticular disease Glaucoma b/l Hiatal hernia Hx of basal cell carcinoma s/p excision Multinodular goiter Osteoporosis Seizure Hx epilepsy- no seizure x years Surgical History History of elbow surgery RIGHT Hx laparoscopic cholecystectomy (10/17/19) Laparoscopic Cholecystectomy Dr. Ty 08/06/19 Hx of basal cell carcinoma excision Family History Daughter Breast cancer Social History Smoking Status: Never smoker Second Hand Exposure: No; Hx Alcohol Use: Yes Alcohol type: wine Hx Substance Use: No Preferred Language: Kyrgyz Communication Ability: Effective Media Account Executive Required: No Beliefs That Will Affect Care: None marital status: Current Living Situation: Alone Current Living Situation Comment: Lives alone in apartment in [facility] in [place] current occupational status: retired How many Children do You have: 1 Feels Safe at Home: Yes Assistive Devices: Cane and Glasses Review of Systems A total of 10 systems reviewed and were otherwise negative Physical Exam Vital Signs Vital Signs - 24 hr 04/16/22 14:21 04/16/22 16:37 Temperature 36.4 C L Temperature Source Oral Pulse Rate 116 H Respiratory Rate 18 Blood Pressure 132/80 Blood Pressure Mean 97 Pulse Oximetry 93 94 Oxygen Delivery Method Room Air Sepsis Recent Fever Within 48 Hours No Sepsis New/Unexplained Change in Mental Status No Sepsis Action Taken by Nursing No Action Required Physical Exam GENERAL: She is oriented to person, place, and time. She appears well-developed and well-nourished. She does not appear distressed. HENT: Exam performed. -Head: Normocephalic and atraumatic. -Right Ear: External ear normal. No mastoid tenderness. -Left Ear: External ear normal. No mastoid tenderness. -Mouth/Throat: The oropharynx is clear and moist. No trismus in the jaw. No dental abscesses or uvula swelling. No oropharyngeal exudate or tonsillar abscesses. EYES: Conjunctivae and EOM are normal. Pupils are equal, round, and reactive to light. Right eye exhibits no discharge. Left eye exhibits no discharge. No scleral icterus. NECK: Normal range of motion. Neck supple. No JVD present. No spinous process tenderness present. No carotid bruit present. No rigidity. No tracheal deviation and normal range of motion present. No Brudzinski's sign and no Kernig's sign noted. CV: Normal rate, regular rhythm, normal heart sounds and intact distal pulses. There is no peripheral edema. Palpable radial pulses bue. PULM/CHEST: Inspiratory rales at the bases bilaterally. ABD: The abdomen is soft. Bowel sounds are normal. She has no distension. No mass is present. There is no tenderness. There is no rebound, no guarding, no Bernstein's sign and no tenderness at McBurney's point. Rovsig negative MUSC/SKEL: Normal range of motion. There is no peripheral edema, tenderness or deformity. LYMPH: No cervical adenopathy. NEURO: She is alert and oriented to person, place, and time. She has normal strength. No cranial nerve deficit or sensory deficit. Coordination and gait normal. GCS eye subscore is 4. GCS verbal subscore is 5. GCS motor subscore is 6. Cerebellar tests wnl. SKIN: Skin is warm and dry. She is not diaphoretic. PSYCH: She has a normal mood and affect. Behavior is normal. Judgment and thought content normal. Course Course 1615: The patient was evaluated in room B5. A complete history and physical exam was performed Cardiac monitoring: An order was placed for continuous cardiac monitoring. The monitor shows a rate of 110 with sinus tachycardia rhythm Patient was seen during a time of extreme volume and extreme acuity during the COVID-19 pandemic. Nursing triage protocols were initiated and labs were drawn by protocol in the triage area. [id number]-[id number] ultrasound was performed and showed no pericardial effusion or tamponade. 1650: Vital signs stable. X-ray shows cardiomegaly with pulmonary infiltrate. Patient has leukocytosis of 15. Blood cultures and lactic acid drawn. Patient will be started on antibiotics for community-acquired pneumonia. Patient has a class IV PORT score and is moderate risk according to CURB65. Patient will be treated with Rocephin and azithromycin [facility]. CURB-65 Score for Pneumonia Severity from [email or web address] on 04/16/2022 All calculations should be rechecked by clinician prior to use RESULT SUMMARY: 2 points Moderate risk group: 6.8% 30-day mortality. Consider inpatient treatment or outpatient with close followup. INPUTS: Confusion > 0 = No BUN > 19 mg/dL (> 7 mmol/L urea) > 1 = Yes Respiratory Rate &ge; 30 > 0 = No Systolic BP < 90 mmHg or Diastolic BP &le; 60 mmHg > 0 = No Age &ge; 65 > 1 = Yes PSI/PORT Score: Pneumonia Severity Index for CAP from [email or web address] on 04/16/2022 All calculations should be rechecked by clinician prior to use RESULT SUMMARY: 104 points Risk Class IV, 8.2-9.3% mortality. Hospitalization recommended based on risk. INPUTS: Age > 74 years Sex > -10 = Female group home resident > 0 = No Neoplastic disease > 0 = No Liver disease history > 0 = No CHF history > 10 = Yes Cerebrovascular disease history > 0 = No Renal disease history > 0 = No Altered mental status > 0 = No Respiratory rate >=0 breaths/min > 0 = No Systolic blood pressure > 0 = No Temperature 39.9C (103.8F) > 0 = No Pulse >=25 beats/min > 0 = No pH > 0 = No BUN >=0 mg/dL or >=1 mmol/L > 20 = Yes Sodium > 0 = No Glucose >=50 mg/dL or >=4 mmol/L > 0 = No Hematocrit > 0 = No Partial pressure of oxygen > 0 = No Pleural effusion on x-ray > 10 = Yes 1707: Called to bedside by nursing. Patient had a syncopal episode after her blood work was drawn. Patient had bradycardia into the 30s. She also reported some chest pain that she stated felt like gas. Patient's blood pressure 84/53. Patient's daughter states she has had symptoms like this in the past. Repeat EKG showed no ST elevation or ST depression. Patient was in sinus bradycardia. Given the patient's hypotension and symptoms the patient was given atropine 0.5 mg IV push which improved her heart rate. Her blood pressure also improved. Patient was given IV fluids as well as Zofran and GI cocktail. Azithromycin was switched from p.o. to IV. 174: Vital signs stable. Patient reports no chest pain difficulty breathing h eadache nausea or feelings of syncope/near syncope after receiving after to pain, GI cocktail, and Zofran. [facility] with Fidelina Rollins NP who states to admit to Dr. Thayer. 1814: Vital signs stable.Patient reports no chest pain difficulty breathing headache nausea or feelings of syncope/near syncope Administered Medications Azithromycin 500 mg/ Dextrose 255 mls @ 127.5 mls/hr IV NOW STA Stop: 04/16/22 19:09 Last Admin: 04/16/22 17:29 Dose: 127.5 mls/hr Documented by: [id number] Discontinued Medications Al Hydrox/Mg Hydrox/Simethicone (Gi Cocktail Ed Use) 1 dose PO ONE ONE Stop: 04/16/22 17:10 Last Admin: 04/16/22 17:19 Dose: 1 dose Documented by: [id number] Al Hydrox/Mg Hydrox/Simethicone (Gi Cocktail Ed Use) Confirm Administered Dose 1 dose PO .STK-MED ONE Stop: 04/16/22 17:11 Last Admin: 04/16/22 17:19 Dose: Not Given Documented by: [id number] Atropine Sulfate (Atropine Sulfate 0.1 Mg/Ml 10ml Syr) 0.5 mg IV NOW STA Stop: 04/16/22 17:10 Last Admin: 04/16/22 17:07 Dose: 0.5 mg Documented by: [id number] Azithromycin (Azithromycin 250 Mg Tab) 500 mg PO NOW ONE Stop: 04/16/22 16:52 Last Admin: 04/16/22 17:17 Dose: Not Given Documented by: [id number] Ceftriaxone Sodium (Rocephin) 2,000 mg in 70 mls @ 140 mls/hr IV NOW STA Stop: 04/16/22 17:20 Last Infusion: 04/16/22 17:53 Dose: 0 mls/hr Documented by: [id number] Admin: 04/16/22 17:14 Dose: 140 mls/hr Documented by: [id number] Miscellaneous (Rapid Sequence Induction Bag) Confirm Administered Dose 1 ea .ROUTE .STK-MED ONE Stop: 04/16/22 17:03 Last Admin: 04/16/22 17:20 Dose: Not Given Documented by: [id number] Ondansetron HCl (Ondansetron Inj 2 Mg/Ml 2 Ml Vial) Confirm Administered Dose 4 mg .ROUTE .STK-MED ONE Stop: 04/16/22 17:10 Last Admin: 04/16/22 17:14 Dose: Not Given Documented by: [id number] Ondansetron HCl (Ondansetron Inj 2 Mg/Ml 2 Ml Vial) 4 mg IV NOW STA Stop: 04/16/22 17:10 Last Admin: 04/16/22 17:14 Dose: 4 mg Documented by: [id number] Critical Care Time Critical Care Time: Yes Total Critical Care Time: 47 I have personally spent greater than 47 minutes of critical care time in the direct management of this patient. This includes bedside care, interpretation of diagnostic studies, and testing, discussion with consultants, patient, and family members, and other required patient management activities. This 47 minutes is in excess of all separately billable procedures. Medical Decision Making Laboratory Data Result diagrams: 04/16/22 15:30 04/16/22 15:30 Lab Results 04/16/22 04/16/22 04/16/22 Range/Units 15:30 15:30 15:30 WBC 15.37 H (4.8-10.8) K/uL RBC 4.90 (4.2-5.4) M/uL Hgb 16.0 (12.0-16.0) g/dL Hct 46.1 (37-47) % MCV 94.1 (80-100) fL MCH 32.7 (25-34) pg MCHC 34.7 (32-36) g/dL RDW Std Deviation 45.5 (36.4-46.3) fL RDW Coeff of Bhavesh 13.1 (11.5-14.5) % Plt Count 314 (130-400) K/uL MPV 9.1 (7.4-10.4) fL Immature Gran % (Auto) 0.5 % Neut % (Auto) 70.6 % Lymph % (Auto) 11.5 % [place] % (Auto) 17.2 % Eos % (Auto) 0.1 % Baso % (Auto) 0.1 % Neut # (Auto) 10.85 H (1.4-6.5) K/uL Lymph # (Auto) 1.77 (1.2-3.4) K/uL [place] # (Auto) 2.65 H (0.11-0.59) K/uL Eos # (Auto) 0.01 (0-0.5) K/uL Baso # (Auto) 0.01 (0-0.2) K/uL Immature Gran # (Auto) 0.08 H (0.00-0.02) K/uL Sodium 133 L (136-145) mmol/L Potassium 4.0 (3.5-5.1) mmol/L Chloride 102 (98-107) mmol/L Carbon Dioxide 22 (21-32) mmol/L Anion Gap 9 (3-11) BUN 32 H (6-23) mg/dl Creatinine 0.65 (0.6-1.2) mg/dl Est Cr Clr Drug Dosing 71.3 ml/min Est GFR ( Amer) 101.4 ml/min Est GFR (Non-Af Amer) 87.5 ml/min BUN/Creatinine Ratio 49.2 H (10-20) Glucose 106 H (70-99(Fasting)) mg/dl POC Glucose (70-99) mg/dl Lactate (0.4-2.0) mmol/L Calcium 9.1 (8.5-10.1) mg/dl Magnesium (1.7-2.4) mg/dl Total Bilirubin 0.4 (0.2-1.0) mg/dl AST 20 (13-39) U/L ALT 25 (7-52) U/L Alkaline Phosphatase 98 (34-104) U/L Troponin I High Sens (0-14) pg/ml Total Protein 6.6 (6.0-8.3) gm/dl Albumin 4.2 (3.4-5.0) gm/dl Globulin 2.4 L (2.5-4.0) gm/dl Albumin/Globulin Ratio 1.8 (0.9-2) TSH 0.070 L (0.300-4.500) uIu/ml Free T4 0.89 (0.61-1.60) ng/dl SARS-CoV-2 (PCR) SARS-CoV-2, RNA, NAAT (NEGATIVE) 04/16/22 04/16/22 04/16/22 Range/Units 15:30 15:30 16:42 WBC (4.8-10.8) K/uL RBC (4.2-5.4) M/uL Hgb (12.0-16.0) g/dL Hct (37-47) % MCV (80-100) fL MCH (25-34) pg MCHC (32-36) g/dL RDW Std Deviation (36.4-46.3) fL RDW Coeff of Bhavesh (11.5-14.5) % Plt Count (130-400) K/uL MPV (7.4-10.4) fL Immature Gran % (Auto) % Neut % (Auto) % Lymph % (Auto) % [place] % (Auto) % Eos % (Auto) % Baso % (Auto) % Neut # (Auto) (1.4-6.5) K/uL Lymph # (Auto) (1.2-3.4) K/uL [place] # (Auto) (0.11-0.59) K/uL Eos # (Auto) (0-0.5) K/uL Baso # (Auto) (0-0.2) K/uL Immature Gran # (Auto) (0.00-0.02) K/uL Sodium (136-145) mmol/L Potassium (3.5-5.1) mmol/L Chloride (98-107) mmol/L Carbon Dioxide (21-32) mmol/L Anion Gap (3-11) BUN (6-23) mg/dl Creatinine (0.6-1.2) mg/dl Est Cr Clr Drug Dosing ml/min Est GFR ( Amer) ml/min Est GFR (Non-Af Amer) ml/min BUN/Creatinine Ratio (10-20) Glucose (70-99(Fasting)) mg/dl POC Glucose (70-99) mg/dl Lactate (0.4-2.0) mmol/L Calcium (8.5-10.1) mg/dl Magnesium 2.1 (1.7-2.4) mg/dl Total Bilirubin (0.2-1.0) mg/dl AST (13-39) U/L ALT (7-52) U/L Alkaline Phosphatase (34-104) U/L Troponin I High Sens 7.6 (0-14) pg/ml Total Protein (6.0-8.3) gm/dl Albumin (3.4-5.0) gm/dl Globulin (2.5-4.0) gm/dl Albumin/Globulin Ratio (0.9-2) TSH (0.300-4.500) uIu/ml Free T4 (0.61-1.60) ng/dl SARS-CoV-2 (PCR) Cancelled SARS-CoV-2, RNA, NAAT (NEGATIVE) 04/16/22 04/16/22 04/16/22 Range/Units 16:42 16:48 17:06 WBC (4.8-10.8) K/uL RBC (4.2-5.4) M/uL Hgb (12.0-16.0) g/dL Hct (37-47) % MCV (80-100) fL MCH (25-34) pg MCHC (32-36) g/dL RDW Std Deviation (36.4-46.3) fL RDW Coeff of Bhavesh (11.5-14.5) % Plt Count (130-400) K/uL MPV (7.4-10.4) fL Immature Gran % (Auto) % Neut % (Auto) % Lymph % (Auto) % [place] % (Auto) % Eos % (Auto) % Baso % (Auto) % Neut # (Auto) (1.4-6.5) K/uL Lymph # (Auto) (1.2-3.4) K/uL [place] # (Auto) (0.11-0.59) K/uL Eos # (Auto) (0-0.5) K/uL Baso # (Auto) (0-0.2) K/uL Immature Gran # (Auto) (0.00-0.02) K/uL Sodium (136-145) mmol/L Potassium (3.5-5.1) mmol/L Chloride (98-107) mmol/L Carbon Dioxide (21-32) mmol/L Anion Gap (3-11) BUN (6-23) mg/dl Creatinine (0.6-1.2) mg/dl Est Cr Clr Drug Dosing ml/min Est GFR ( Amer) ml/min Est GFR (Non-Af Amer) ml/min BUN/Creatinine Ratio (10-20) Glucose (70-99(Fasting)) mg/dl POC Glucose 107 H (70-99) mg/dl Lactate 0.9 (0.4-2.0) mmol/L Calcium (8.5-10.1) mg/dl Magnesium (1.7-2.4) mg/dl Total Bilirubin (0.2-1.0) mg/dl AST (13-39) U/L ALT (7-52) U/L Alkaline Phosphatase (34-104) U/L Troponin I High Sens (0-14) pg/ml Total Protein (6.0-8.3) gm/dl Albumin (3.4-5.0) gm/dl Globulin (2.5-4.0) gm/dl Albumin/Globulin Ratio (0.9-2) TSH (0.300-4.500) uIu/ml Free T4 (0.61-1.60) ng/dl SARS-CoV-2 (PCR) SARS-CoV-2, RNA, NAAT NEGATIVE (NEGATIVE) Imaging Data Radiologist's Impression: Chest X-Ray 04/16/22 15:20 XR chest 1V portable HISTORY: 76 years-old Female weakness acute weakness COMPARISON: Chest radiograph 04/20/2021 TECHNIQUE: Portable AP view of the chest FINDINGS: The cardiac silhouette is enlarged. Large hiatal hernia. Ill-defined opacity of the right lung apex. No pneumothorax. Blunting of the costophrenic angles with mild bibasilar opacities. Degenerative changes of the shoulders and spine. IMPRESSION: 1. Cardiomegaly without overt pulmonary edema. 2. Small pleural effusions with mild bibasilar opacities. 3. Ill-defined right apical density may be secondary to summation density versus airspace disease. ACT 112: Negative or not required by law. The above report was generated using voice recognition software. It may contain grammatical, syntax or spelling errors. Electronically signed by: Sulaiman Torres M.D. 04/16/2022 3:58 PM ECG Data Additional Comments: EKG #1 at 1524: Sinus rhythm with a rate of 103. [place] QRS and QTc intervals are within normal limits. No ST elevation or ST depression. Right bundle branch block present. EKG #2 at 1706 after syncopal episode: Sinus rhythm with a rate of 52. [place] QRS and QTc intervals within normal limits. No ST elevation or ST depression. EKG #3 at 1711 status post atropine 0.5 mg IV push: Sinus tachycardia with a rate of 102. [place] QRS and QTc intervals within normal limits. No ST elevation or ST depression. [facility] Narrative 1615: The patient was evaluated in room B5. A complete history and physical exam was performed Cardiac monitoring: An order was placed for continuous cardiac monitoring. The monitor shows a rate of 110 with sinus tachycardia rhythm Patient was seen during a time of extreme volume and extreme acuity during the COVID- pandemic. Nursing triage protocols were initiated and labs were drawn by protocol in the triage area. Oqnwo-[id number]-[id number] ultrasound was performed and showed no pericardial effusion or tamponade. 1650: Vital signs stable. X-ray shows cardiomegaly with pulmonary infiltrate. Patient has leukocytosis of 15. Blood cultures and lactic acid drawn. Patient will be started on antibiotics for community-acquired pneumonia. Patient has a class IV PORT score and is moderate risk according to CURB65. Patient will be treated with Rocephin and azithromycin [facility]. CURB-65 Score for Pneumonia Severity from [email or web address] on 04/16/2022 All calculations should be rechecked by clinician prior to use RESULT SUMMARY: 2 points Moderate risk group: 6.8% 30-day mortality. Consider inpatient treatment or outpatient with close followup. INPUTS: Confusion > 0 = No BUN > 19 mg/dL (> 7 mmol/L urea) > 1 = Yes Respiratory Rate &ge; 30 > 0 = No Systolic BP < 90 mmHg or Diastolic BP &le; 60 mmHg > 0 = No Age &ge; 65 > 1 = Yes PSI/PORT Score: Pneumonia Severity Index for CAP from [email or web address] on 04/16/2022 All calculations should be rechecked by clinician prior to use RESULT SUMMARY: 104 points Risk Class IV, 8.2-9.3% mortality. Hospitalization recommended based on risk. INPUTS: Age > 74 years Sex > -10 = Female group home resident > 0 = No Neoplastic disease > 0 = No Liver disease history > 0 = No CHF history > 10 = Yes Cerebrovascular disease history > 0 = No Renal disease history > 0 = No Altered mental status > 0 = No Respiratory rate >=0 breaths/min > 0 = No Systolic blood pressure > 0 = No Temperature 39.9C (103.8F) > 0 = No Pulse >=25 beats/min > 0 = No pH > 0 = No BUN >=0 mg/dL or >=1 mmol/L > 20 = Yes Sodium > 0 = No Glucose >=50 mg/dL or >=4 mmol/L > 0 = No Hematocrit > 0 = No Partial pressure of oxygen > 0 = No Pleural effusion on x-ray > 10 = Yes 1707: Called to bedside by nursing. Patient had a syncopal episode after her blood work was drawn. Patient had bradycardia into the 30s. She also reported some chest pain that she stated felt like gas. Patient's blood pressure 84/53. Patient's daughter states she has had symptoms like this in the past. Repeat EKG showed no ST elevation or ST depression. Patient was in sinus bradycardia. Given the patient's hypotension and symptoms the patient was given atropine 0.5 mg IV push which improved her heart rate. Her blood pressure also improved. Patient was given IV fluids as well as Zofran and GI cocktail. Azithromycin was switched from p.o. to IV. 174: Vital signs stable. Patient reports no chest pain difficulty breathing headache nausea or feelings of syncope/near syncope after receiving after to pain, GI cocktail, and Zofran. [facility] with Fidelina Rollins NP who states to admit to Dr. Thayer. 1814: Vital signs stable.Patient reports no chest pain difficulty breathing headache nausea or feelings of syncope/near syncope Impression & Plan Pneumonia, Syncope, Symptomatic bradycardia Discharge Plan Visit Data Chief Complaint: Weakness Discharge Problem: Pneumonia, Syncope, Symptomatic bradycardia Patient Disposition: Admitted As Inpatient Forms Stand Alone Forms: [facility] Prescriptions Prescriptions: No Action carbamazepine [Tegretol XR] 400 mg Tablet Extended Release 12 Hr 400 mg PO BID RF: 0 Calcium 600 + D(3) 600 mg calcium- 200 unit Capsule 1 cap PO BID RF: 0 glucosamine-chondroitin [Osteo Bi-Flex] 250-200 mg Tablet 1 tab PO BID RF: 0 Centrum Silver Women 8 mg iron-400 mcg-300 mcg Tablet 1 tab PO QAM RF: 0 turmeric 400 mg Capsule 400 mg PO QAM RF: 0 ascorbic acid (vitamin C) [Vitamin C] 500 mg Tablet 500 mg PO HS RF: 0 vitamin B complex-folic acid 2,000 mcg Capsule 1 cap PO DAILY RF: 0 meloxicam 7.5 mg tablet 7.5 mg PO DAILY RF: 0 Referrals Referrals: Elvia Rodriguez MD [Primary Care Provider] -
[2022-04-16] MEDS ORDERED: ACETAMINOPHEN 325 MG TAB PO PRN (20:15)
--- NOTE | 2022-04-16 20:30 | History & Physical Report ---
Date of Service April 16, 2022 Assessment & Plan (1) Weakness: Plan: Admit to telemetry Patient presenting from home with reports of generalized weakness x 2 days. In the ED, WBC 15 K. CXR showing a right apical density. Patient denies any cough or sputum production, procalcitonin negative. Awaiting UA Consider CT chest for further eval of possible pneumonia (2) Syncope: Plan: With associated bradycardia and hypotension Seems to be due to vagal response from discomfort from indigestion EKG without acute changes Monitor on tele for further arrhythmias Trend troponin (3) Seizure disorder: Plan: Controlled, no recent seizures Continue Tegretol (4) Multinodular goiter: Plan: TSH 0.070, normal free T4 -- last labs from 05/2021 TSH 0.14, nomral free T4 Under "watch and wait" per PCP (5) DVT prophylaxis: Plan: SQ Lovenox Plan: I have seen and examined the patient and have discussed the case with the provider above. I agree with the assessment and plan as stated. 76 yo F presents with dizziness and syncope. Daughter reports that mom passes out like this with minimal pain in the past. She also had an episode in the ER tonight, developing bradycardia and hypotension requiring one dose of atropine. She reports feeling tired and states that she hasn't slept well for the past 2-3 nights. She denies respiratory symptoms but has some significant urinary urgency. Her urinalysis reveals a clear UA, however, with her symptoms will obtain a catheterized specimen to be sure. Physical exam reveals a fatigued elderly female in no acute distress. CV exam is normal and lungs are clear. There is no abdominal tenderness, and abdomen is soft. There is 5/5 strength and she can sit up in bed with little assistance. Labwork reveals a mild leukocytosis with a neutrophil predominance, Na is 133, BUN elevated to 32 indicative of dehydration vs steroid use vs UGI bleed. Dehydration seems to be a more likely scenario. trop neg, TSH at baseline. Agree with Rocephin and azithromycin for now pending lab results, culture results and clinical improvement. PT/OT ordered. One bag NSS ordered for overnight and repeat CBC and BMP in am. Notably procalcitonin is negative. Claribel Thayer DO [facility]ist Admission and Anticipated Discharge Date Admission Date: April 16, 2022 History of Present Illness Chief Complaint: Weakness Primary Care Provider: Elvia Rodriguez MD 76-year-old female PMH multinodular goiter, osteoarthritis, epilepsy, anxiety, other problems to below who presents the ED for evaluation of generalized weakness. Patient reports she started feeling ill yesterday. Reports that her only symptom is feeling generally weak. She denies falls. Denies chest pain, shortness of breath, cough, sputum production. Reports a poor appetite over the past couple of days however denies abdominal pain, nausea, vomiting, diarrhea. No lightheadedness, dizziness, diaphoresis. Denies urinary symptoms. While in the ED, patient reports she developed a substernal chest discomfort that she describes as a " stuck gas bubble"/indigestion. Patient then stated to her daughter that she fell like she was going to pass out. Patient subsequently became bradycardic and hypotensive and syncopized briefly. Patient was regaining consciousness however remained bradycardic and hypotensive and therefore received IV atropine 0.5 mg. Patient recovered quickly. Patient's daughter states that if the patient is having moderate-severe pain, she has passed out in the past. Labs show WBC 15 K. CXR shows a right apical density. Patient was given IV azithromycin and IV ceftriaxone. Allergies Allergy/AdvReac Type Severity Reaction Status Date / Time No Known Allergies Allergy Verified 04/16/22 17:22 Home Medications Medication Instructions Recorded Confirmed Type calcium carbonate 600 mg-vitamin 1 cap PO BID 07/08/19 04/16/22 History D3 5 mcg (200 unit) capsule (Calcium 600 + D(3)) carbamazepine 400 mg 400 mg PO BID 07/08/19 04/16/22 History tablet,extended release,12 hr (Tegretol XR) glucosamine-chondroitin 250 mg-200 1 tab PO BID 07/24/19 04/16/22 History mg tablet (Osteo Bi-Flex) multivit with 1 tab PO QAM 07/24/19 04/16/22 History pnknugkt-ddcl-HX-lutein 8 mg iron-400 mcg-300 mcg tablet (Centrum Silver Women) turmeric 400 mg capsule 400 mg PO QAM 07/24/19 04/16/22 History ascorbic acid (vitamin C) 500 mg 500 mg PO HS 08/06/19 04/16/22 History tablet (Vitamin C) meloxicam 7.5 mg tablet 7.5 mg PO DAILY 04/16/22 04/16/22 History vitamin B complex-folic acid 2,000 1 cap PO DAILY 04/16/22 04/16/22 History mcg capsule Past Med/Surg History Medical History Arthritis Diverticular disease Glaucoma b/l Hiatal hernia Hx of basal cell carcinoma s/p excision Multinodular goiter Osteoporosis Seizure Hx epilepsy- no seizure x years Surgical History History of elbow surgery RIGHT Hx laparoscopic cholecystectomy (08/06/19) Laparoscopic Cholecystectomy Dr. Ty 08/06/19 Hx of basal cell carcinoma excision Family History Daughter Breast cancer Social History Smoking Status: Never smoker Second Hand Exposure: No; Do You Dip or Chew Tobacco: No; Tobacco Cessation Education Requested by Patient: No Hx Alcohol Use: Yes Alcohol type: wine Hx Substance Use: No Preferred Language: Vietnamese Communication Ability: Effective Nursing Scheduler Required: No Beliefs That Will Affect Care: None marital status: Current Living Situation: Alone Current Living Situation Comment: Lives alone in apartment in skilled nursing community in [place] current occupational status: retired How many Children do You have: 1 Other Information That Helps Us Care for You: No Feels Safe at Home: Yes Safety Concerns: Feels Safe At This Time Assistive Devices: Walker Review of Systems Review of Systems: ROS per HPI, all other systems reviewed and negative Physical Exam Constitutional: WD/WN, vitals as above Eyes: PERRL, conjunctivae normal, anicteric sclerae ENMT: external ear and nose normal, oropharynx normal Respiratory: normal respiratory effort, lungs clear to auscultation Cardiovascular: Rate/Rhythm: regular rate and regular rhythm Vessels: normal peripheral pulses Extremities: + edema (Trace edema BLE) Gastrointestinal (Abdomen): normal bowel sounds, soft, nontender, no hepatosplenomegaly Musculoskeletal: no cyanosis or clubbing, extremities motor strength 5/5 Skin: no rashes, warm and dry Neurologic: PERRL, EOMI, accommodation nl, no face palsy, no dysarthria Psychiatric: A+Ox3, euthymic affect Results & Data Results & Data ([facility]) Vital Signs (Past 12 Hours) Vital Signs Temp Pulse Resp BP Pulse Ox 04/16/22 19:30 95 H 18 134/88 97 04/16/22 19:00 92 H 15 134/74 97 04/16/22 18:30 100 H 16 132/71 98 04/16/22 18:15 98 H 22 130/88 98 04/16/22 18:00 103 H 19 148/75 H 99 04/16/22 17:40 102 H 22 157/75 H 99 04/16/22 17:36 104 H 17 151/92 H 99 04/16/22 17:30 103 H 15 145/86 H 100 04/16/22 17:20 110 H 29 H 143/103 H 97 04/16/22 17:12 104 H 26 H 143/88 H 98 04/16/22 16:37 94 04/16/22 14:21 36.4 C L 116 H 18 132/80 93 Laboratory Results Short CBC 04/16/22 04/16/22 Range/Units 15:30 15:30 WBC 15.37 H (4.8-10.8) K/uL Hgb 16.0 (12.0-16.0) g/dL Hct 46.1 (37-47) % Plt Count 314 (130-400) K/uL TSH 0.070 L (0.300-4.500) uIu/ml BMP 04/16/22 15:30 Sodium 133 L Potassium 4.0 Chloride 102 Carbon Dioxide 22 BUN 32 H Creatinine 0.65 Glucose 106 H Calcium 9.1 Liver Function 04/16/22 Range/Units 15:30 Total Bilirubin 0.4 (0.2-1.0) mg/dl AST 20 (13-39) U/L ALT 25 (7-52) U/L Alkaline Phosphatase 98 (34-104) U/L Albumin 4.2 (3.4-5.0) gm/dl Diagnostic Findings Chest X-Ray 04/16/22 15:20 XR chest 1V portable HISTORY: 76 years-old Female weakness acute weakness COMPARISON: Chest radiograph 04/20/2021 TECHNIQUE: Portable AP view of the chest FINDINGS: The cardiac silhouette is enlarged. Large hiatal hernia. Ill-defined opacity of the right lung apex. No pneumothorax. Blunting of the costophrenic angles with mild bibasilar opacities. Degenerative changes of the shoulders and spine. IMPRESSION: 1. Cardiomegaly without overt pulmonary edema. 2. Small pleural effusions with mild bibasilar opacities. 3. Ill-defined right apical density may be secondary to summation density versus airspace disease. ACT 112: Negative or not required by law. The above report was generated using voice recognition software. It may contain grammatical, syntax or spelling errors. Electronically signed by: Sulaiman Torres M.D. 04/16/2022 3:58 PM Code Status & VTE Plan Code Status Patient is a full code as per my discussion with her. Patient states that her daughter, [place], would be her decision-maker in the event she were to be unable to. (1) Syncope Syncope type: unspecified Qualified Code(s): R55 - Syncope and collapse
[2022-04-16] MEDS: ENOXAPARIN INJ 40 MG/0.4 ML SYR SQ SCH (21:16)
[2022-04-16 21:20] LABS: Appearance Urine Clear (Clear); Bilirubin Urine Negative (Negative); Blood Urine Negative (Negative); Color Urine Yellow; Glucose Urine UA Negative (Negative); Ketones Urine Negative (Negative); Leukocyte Esterase Urine Negative (Negative); Nitrite Urine Negative (Negative); Protein Urine Negative (Negative); Specific Gravity Urine 1.018 (1.000-1.030); Urobilinogen Urine Negative (Negative); pH Urine 6.5 (4.5-7.5)
[2022-04-16] MEDS ORDERED: SODIUM CHLORIDE 0.9% 1000ML 1,000 ML IV SCH (23:15)
[2022-04-17 00:36] LABS: Appearance Urine Clear (Clear); Bilirubin Urine Negative (Negative); Blood Urine Negative (Negative); Color Urine Yellow; Glucose Urine UA Negative (Negative); Ketones Urine Negative (Negative); Leukocyte Esterase Urine Negative (Negative); Nitrite Urine Negative (Negative); Protein Urine Negative (Negative); Specific Gravity Urine 1.007 (1.000-1.030); Urobilinogen Urine Negative (Negative)
[2022-04-17 03:44] LABS: Hematocrit (blood only) 41.6 % (37-47); Hemoglobin 14.3 g/dL (12.0-16.0); Mean Corpuscular Hemoglobin 33.1 pg (25-34); Mean Corpuscular Hgb Conc 34.4 g/dL (32-36); Mean Corpuscular Volume 96.3 fL (80-100); Mean Platelet Volume 9.5 fL (7.4-10.4); Platelet Count 271 K/uL (130-400); RDW Coefficient of Variation 12.9 % (11.5-14.5); RDW Standard Deviation 45.4 fL (36.4-46.3); Red Blood Count 4.32 M/uL (4.2-5.4); White Blood Count 10.59 K/uL (4.8-10.8)
[2022-04-17 04:03] LABS: Troponin I High Sensitivity 4.4 pg/ml (0-14)
[2022-04-17 04:15] LABS: BUN Creatinine Ratio 34.5 (10-20); Calcium 8.6 mg/dl (8.5-10.1); Creatinine Clr Calc Pharmacy 81.7 ml/min; Est GFR (African American) 107.1 ml/min; Est GFR (Non-African American) 92.4 ml/min; Potassium 4.9 mmol/L (3.5-5.1)
--- NOTE | 2022-04-17 08:09 | Electrocardiogram Report ---
Test Reason : Blood Pressure : / mmHG Vent. Rate : 081 BPM Atrial Rate : 081 BPM P-R Int : 176 ms QRS Dur : 094 ms QT Int : 364 ms P-R-T Axes : 035 024 035 degrees QTc Int : 422 ms Poor data quality, interpretation may be adversely affected Normal sinus rhythm Normal ECG When compared with ECG of 16-APR-2022 17:11, HR has decreased by 21 bpm Otherwise no significant change Confirmed by Reji Beavers ([id number]) on 04/17/2022 8:09:29 AM Referred By: REFERRED SELF Confirmed By:Reji Beavers
--- NOTE | 2022-04-17 08:16 | Electrocardiogram Report ---
Test Reason : Blood Pressure : / mmHG Vent. Rate : 103 BPM Atrial Rate : 103 BPM P-R Int : 152 ms QRS Dur : 092 ms QT Int : 328 ms P-R-T Axes : 038 017 043 degrees QTc Int : 429 ms Poor data quality, interpretation may be adversely affected Sinus tachycardia Incomplete right bundle branch block Borderline ECG When compared with ECG of 21-APR-2021 08:01, No significant change was found Confirmed by Reji Beavers ([id number]) on 04/17/2022 8:15:57 AM Referred By: Confirmed By:Reji Beavers
--- NOTE | 2022-04-17 08:58 | Electrocardiogram Report ---
Test Reason : Blood Pressure : / mmHG Vent. Rate : 052 BPM Atrial Rate : 052 BPM P-R Int : 138 ms QRS Dur : 092 ms QT Int : 412 ms P-R-T Axes : 061 014 020 degrees QTc Int : 383 ms Sinus bradycardia Otherwise normal ECG When compared with ECG of 16-APR-2022 15:24, Vent. rate has decreased BY 51 BPM Confirmed by Reji Beavers ([id number]) on 04/17/2022 8:58:16 AM Referred By: REFERRED SELF Confirmed By:Reij Beavers
--- NOTE | 2022-04-17 09:02 | Electrocardiogram Report ---
Test Reason : Blood Pressure : / mmHG Vent. Rate : 102 BPM Atrial Rate : 102 BPM P-R Int : 152 ms QRS Dur : 092 ms QT Int : 338 ms P-R-T Axes : 051 015 030 degrees QTc Int : 440 ms Poor data quality, interpretation may be adversely affected Sinus tachycardia Minor Anterior ST elevation, most consistent with repolarization variant Otherwise normal ECG When compared with ECG of 16-APR-2022 17:06, Vent. rate has increased BY 50 BPM Confirmed by Reji Beavers ([id number]) on 04/17/2022 9:02:05 AM Referred By: REFERRED SELF Confirmed By:Reji Beavers
--- NOTE | 2022-04-17 15:45 | Hospitalist Progress Note ---
Date of Service April 17, 2022 Assessment & Plan (1) Weakness: Plan: likely from Pneumonia, Community Acquired vs. Aspiration per admitting service notes with addendum: Patient presenting from home with reports of generalized weakness x 2 days. In the ED, WBC 15 K. CXR showing a right apical density. Patient denies any cough or sputum production, procalcitonin negative. Awaiting UA 04/17 afebrile no leukocytosis blood culture: pending patient reports having hiatal hernia possible aspiration component? change Ceftri to Augmentin continue Azithro (2) Syncope: Plan: With associated bradycardia and hypotension Seems to be due to vagal response from discomfort from indigestion EKG without acute changes Monitor on tele for further arrhythmias Troponins negative (3) Seizure disorder: Plan: Controlled, no recent seizures Continue Tegretol (less than 2.0, low) (4) Multinodular goiter: Plan: TSH 0.070, normal free T4 -- last labs from 05/2021 TSH 0.14, nomral free T4 Under "watch and wait" per PCP (5) DVT prophylaxis: Plan: SQ Lovenox Admission and Anticipated Discharge Date Admission Date: April 16, 2022 Subjective ff up for weakness, pneumonia, etc seen resting in bed, comfortable in good spirits states she feels somewhat better today less weak no cough, dyspnea, palpitations, dizziness no headache, abdominal pain, nausea/vomiting participated with PT/OT today no other symptoms Review of Systems Review of Systems: all noted and negative except for above Physical Exam Physical Exam: General- oriented x 3, not in distress, speaks in sentences with no effort or accessory muscle use Eyes- anicteric Neck- no JVD Lungs- clear breath sounds bilaterally, no rales/wheezes Heart- normal rate, regular rhythm; no murmurs Abdomen- normal bowel sounds, nondistended, soft, nontender Extremities- no pretibial edema, no calf tenderness Neuro- alert, oriented x 3; no gross focal neurologic deficits Skin- warm & dry Results & Data Results & Data ([facility]) Vital Signs (Past 12 Hours) Vital Signs Temp Pulse Pulse Resp BP BP Pulse Ox 04/17/22 15:29 36.6 C 96 H 16 130/80 94 04/17/22 12:10 36.5 C 99 H 18 125/81 93 04/17/22 10:15 86 all noted and reviewed including below (1) Syncope Syncope type: unspecified Qualified Code(s): R55 - Syncope and collapse
[2022-04-17] MEDS: cefTRIAXone SODIUM 1,000 MG in DEXTROSE 5% 50 ML IV SCH (16:15)
[2022-04-17] MEDS: AZITHROMYCIN 500 MG in DEXTROSE 5% 250 ML IV SCH (16:32)
[2022-04-17] MEDS: ENOXAPARIN INJ 40 MG/0.4 ML SYR SQ SCH (20:30)
[2022-04-17] MEDS: [UNRECOGNIZED DRUG - OTHER] OP SCH (23:13)
--- NOTE | 2022-04-18 08:58 | Electrocardiogram Report ---
Test Reason : Blood Pressure : / mmHG Vent. Rate : 086 BPM Atrial Rate : 086 BPM P-R Int : 166 ms QRS Dur : 094 ms QT Int : 364 ms P-R-T Axes : 048 037 046 degrees QTc Int : 435 ms Normal sinus rhythm Normal ECG When compared with ECG of 17-APR-2022 05:30, No significant change was found Confirmed by Reji Beavers ([id number]) on 04/18/2022 8:58:02 AM Referred By: REFERRED SELF Confirmed By:Reji Beavers
[2022-04-18] MEDS: cefTRIAXone SODIUM 1,000 MG in DEXTROSE 5% 50 ML IV SCH (16:13)
[2022-04-18] MEDS: AZITHROMYCIN 500 MG in DEXTROSE 5% 250 ML IV SCH (17:16)
[2022-04-18] MEDS: [UNRECOGNIZED DRUG - OTHER] OP SCH (20:26)
[2022-04-18] MEDS: ENOXAPARIN INJ 40 MG/0.4 ML SYR SQ SCH (20:26)
--- NOTE | 2022-04-18 22:50 | Hospitalist Progress Note ---
Date of Service April 18, 2022 Assessment & Plan (1) Weakness: Plan: Pneumonia Patient presenting from home with reports of generalized weakness x 2 days. CXR showed small pleural effusions with mild bibasilar opacities. Ill-defined right apical density may be secondary to summation density versus airspace disease. WBC on admission 15k Continue abx to Ceftriaxone and Azithromycin Continue PT/OT eval Fall precaution Clinically improved (2) Syncope: Plan: With associated bradycardia and hypotension Seems to be due to vagal response from discomfort from indigestion EKG without acute changes Monitor on tele for further arrhythmias Troponins negative (3) Seizure disorder: Plan: Controlled, no recent seizures Continue Tegretol (less than 2.0, low) (4) Multinodular goiter: Plan: TSH 0.070, normal free T4 -- last labs from 05/2021 TSH 0.14, nomral free T4 Under "watch and wait" per PCP (5) DVT prophylaxis: Plan: SQ Lovenox Admission and Anticipated Discharge Date Admission Date: April 16, 2022 Subjective Pt was seen and examined for follow up of weakness, pneumonia Lying in bed with no acute distress with daughter at bedside Pt said that she feels fine Waiting for placement Denies any chest pain, palpitation, dizziness and SOB Review of Systems Review of Systems: All systems reviewed & are unremarkable except as noted in Subjective Physical Exam Physical Exam: General- No acute distress Head- atraumatic Eyes- PERRL, EOMI, ENT- oropharynx clear Neck- supple, no JVD Lungs- clear to auscultation Heart- regular rhythm; no murmur Abdomen- normal bowel sounds, soft, nontender Extremities- no calf tenderness Neuro- alert, oriented x 3; PERRL, EOMI; no facial palsy; no dysarthria Skin- warm & dry Results & Data Results & Data ([facility]) Vital Signs (Past 12 Hours) Vital Signs Temp Pulse Resp BP BP Pulse Ox 04/18/22 19:17 36.6 C 91 H 20 113/74 97 04/18/22 16:47 36.7 C 97 H 19 126/74 94 04/18/22 11:04 36.7 C 85 18 118/72 97 (1) Syncope Syncope type: unspecified Qualified Code(s): R55 - Syncope and collapse
--- NOTE | 2022-04-21 20:55 | Discharge Summary ---
Date of Service April 19, 2022 Admission HPI Per Admitting Provider 76-year-old female PMH multinodular goiter, osteoarthritis, epilepsy, anxiety, other problems to below who presents the ED for evaluation of generalized weakness. Patient reports she started feeling ill yesterday. Reports that her only symptom is feeling generally weak. She denies falls. Denies chest pain, shortness of breath, cough, sputum production. Reports a poor appetite over the past couple of days however denies abdominal pain, nausea, vomiting, diarrhea. No lightheadedness, dizziness, diaphoresis. Denies urinary symptoms. While in the ED, patient reports she developed a substernal chest discomfort that she describes as a " stuck gas bubble"/indigestion. Patient then stated to her daughter that she fell like she was going to pass out. Patient subsequently became bradycardic and hypotensive and syncopized briefly. Patient was regaining consciousness however remained bradycardic and hypotensive and therefore received IV atropine 0.5 mg. Patient recovered quickly. Patient's daughter states that if the patient is having moderate-severe pain, she has passed out in the past. Labs show WBC 15 K. CXR shows a right apical density. Patient was given IV azithromycin and IV ceftriaxone. Admission Exam Per Admitting Provider Constitutional: WD/WN, vitals as above Eyes: PERRL, conjunctivae normal, anicteric sclerae ENMT: external ear and nose normal, oropharynx normal Respiratory: normal respiratory effort, lungs clear to auscultation Cardiovascular: Rate/Rhythm: regular rate and regular rhythm Vessels: normal peripheral pulses Extremities: + edema (Trace edema BLE) Gastrointestinal (Abdomen): normal bowel sounds, soft, nontender, no hepatosplenomegaly Musculoskeletal: no cyanosis or clubbing, extremities motor strength 5/5 Skin: no rashes, warm and dry Neurologic: PERRL, EOMI, accommodation nl, no face palsy, no dysarthria Psychiatric: A+Ox3, euthymic affect Principal Diagnosis Weakness: Pneumonia Syncope: Seizure disorder: Multinodular goiter Discharge Exam General- No acute distress Head- atraumatic Eyes- PERRL, EOMI, ENT- oropharynx clear Neck- supple, no JVD Lungs- clear to auscultation Heart- regular rhythm; no murmur Abdomen- normal bowel sounds, soft, nontender Extremities- no calf tenderness Neuro- alert, oriented x 3; PERRL, EOMI; no facial palsy; no dysarthria Skin- warm & dry Discharge Data Allergies Allergy/AdvReac Type Severity Reaction Status Date / Time No Known Allergies Allergy Verified 04/21/22 18:18 Consultations 04/16/22 17:21 ED Decision to Admit Stat Ordered Studies XR chest 1V portable HISTORY: 76 years-old Female weakness acute weakness COMPARISON: Chest radiograph 04/20/2021 TECHNIQUE: Portable AP view of the chest FINDINGS: The cardiac silhouette is enlarged. Large hiatal hernia. Ill-defined opacity of the right lung apex. No pneumothorax. Blunting of the costophrenic angles with mild bibasilar opacities. Degenerative changes of the shoulders and spine. IMPRESSION: 1. Cardiomegaly without overt pulmonary edema. 2. Small pleural effusions with mild bibasilar opacities. 3. Ill-defined right apical density may be secondary to summation density versus airspace disease. ACT 112: Negative or not required by law. The above report was generated using voice recognition software. It may contain grammatical, syntax or spelling errors. Electronically signed by: Sulaiman Torres M.D. 04/16/2022 3:58 PM Dictated:04/16/22 1557 Transcribed: 04/16/22 1557 Hospital Course (1) Weakness: Pneumonia Patient presenting from home with reports of generalized weakness x 2 days. CXR showed small pleural effusions with mild bibasilar opacities. Ill-defined right apical density may be secondary to summation density versus airspace disease. WBC on admission 15k Continue abx to Ceftriaxone and Azithromycin Continue PT/OT eval Fall precaution Clinically improved (2) Syncope: With associated bradycardia and hypotension Seems to be due to vagal response from discomfort from indigestion EKG without acute changes Monitor on tele for further arrhythmias Troponins negative (3) Seizure disorder: Controlled, no recent seizures Continue Tegretol (less than 2.0, low) (4) Multinodular goiter: TSH 0.070, normal free T4 -- last labs from 05/2021 TSH 0.14, nomral free T4 Under "watch and wait" per PCP (5) DVT prophylaxis: SQ Lovenox Total Time Total Time Spent Total Time Spent (In Minutes): 35 minutes Discharge Plan Discharge Items Patient Disposition: Transfer Inpatient Rehab Fac Reason For Visit: WEAKNESS Discharge Diagnosis: Weakness: Pneumonia Syncope: Seizure disorder: Multinodular goiter Activity: Resume your previous activity Non-emergency contact: Primary Care Provider Call non-emergency contact if: you have any medication questions, your symptoms worsen and your temperature is above 101 Follow-up/Referrals: Elvia Rodriguez MD [Primary Care Provider] - Diet: Regular Addtl Attending Provider Instructions: You were admitted for weakness and found out to have pneumonia. You have been treating with antibiotic. Follow up with your primary care provider once discharge from [facility] Continue physical and occupational therapy Fall and seizure precaution Complete the course of the antibiotic with cefdinir and Azithromycin Seek medical attention if you develop any shortness of breath or cough Pending Studies at Discharge: No Stand-Alone Forms: My [facility] Skilled Items Patient informed of condition?: Yes DNR: No Discharge Level of Care: Acute rehab Communicable Disease: No Discharge Prognosis: Stable Lines: None Urinary Catheter: No Medications and DC Order Prescriptions: New azithromycin 500 mg tablet 500 mg PO DAILY Qty: 4 RF: 0 cefdinir 300 mg capsule 300 mg PO BID 4 Days Qty: 8 RF: 0 Continued carbamazepine [Tegretol XR] 400 mg Tablet Extended Release 12 Hr 400 mg PO BID RF: 0 Calcium 600 + D(3) 600 mg calcium- 200 unit Capsule 1 cap PO BID RF: 0 glucosamine-chondroitin [Osteo Bi-Flex] 250-200 mg Tablet 1 tab PO BID RF: 0 Centrum Silver Women 8 mg iron-400 mcg-300 mcg Tablet 1 tab PO QAM RF: 0 turmeric 400 mg Capsule 400 mg PO QAM RF: 0 ascorbic acid (vitamin C) [Vitamin C] 500 mg Tablet 500 mg PO HS RF: 0 vitamin B complex-folic acid 2,000 mcg Capsule 1 cap PO DAILY RF: 0 meloxicam 7.5 mg tablet 7.5 mg PO DAILY RF: 0 Discharge Orders: Discharge Order (Routine); Ordered 04/19/22 Ordered By: Beverly Tuttle Admission Data Admit Date/Time: 04/16/22 18:41 Attending Provider: Beverly Tuttle Admit Provider: Claribel Thayer Primary Care Provider: Elvia Rodriguez Other Providers: Claribel Thayer ; Adelfo Ferreira ; [facility] ; [facility] Other Interventions: Discharge Summary Assessment (RN) Last Done: 04/19/22 14:33
== END 2022-04-19 16:20 | DRG 195 ==
LOC: ED 14:16 → SUATTDRO 18:41 → 2S 18:41

== ENCOUNTER 2022-04-21 17:40 | Inpatient (IN) ==
[2022-04-21] MEDS ORDERED: OPTIRAY 320 125ml IV ONE (17:58)
--- NOTE | 2022-04-21 18:08 | Emergency Department Note ---
Impression & Plan TIA (transient ischemic attack) ED Provider Note NAME: RICKY ANDREA AGE: 76 SEX: F : 1945 ARRIVES VIA: Ambulance INFORMANT: Patient, EMS as well as documentation from inpatient rehab ED PROVIDER(S): Howard Austin DO CHIEF COMPLAINT: Stroke alert HPI: Is a 76-year-old female who presented to the emergency department from [facility] where she was receiving inpatient rehab for strokelike symptoms. According to the documentation as well as a prehospital personnel the patient started having symptoms around 3:30 PM today. On their evaluation the patient had a left-sided facial droop as well as a left-sided upper extremity weakness. She does not have a history of stroke. She does have a history of seizure dis order but apparently has not had a seizure in many years. At this time the patient states she feels weak and "drained". Apparently she has been compliant with all of her outpatient medications. She was made a stroke alert prior to arrival after prehospital notification. At this time the patient states she has no headache. She denies having any recent trauma. She denies having any neck pain. She denies having any chest pain or difficulty breathing. The patient states that she is receiving Lovenox for DVT prophylaxis. ROS: See above HPI for pertinent positives & negatives. A total of 10 systems reviewed and were otherwise negative. PAST MEDICAL HISTORY: See Below PAST SURGICAL HISTORY: See Below FAMILY HISTORY: See Below SOCIAL HISTORY: See Below HOME MEDICATIONS: See Below ALLERGIES: See Below VITALS: See Below PHYSICAL EXAMINATION: GENERAL: Patient is awake alert in no acute distress patient is resting comfortably and showing no signs of anxiety EYES: The conjunctivae are clear. The pupils are round and reactive. EARS, NOSE, MOUTH AND THROAT: The nose is without any evidence of any deformity. Mucous membranes are moist. Tongue is midline. NECK: The neck is nontender and supple. RESPIRATORY: Normal respiratory effort is noted there is no evidence of wheezing rhonchi or rales CARDIOVASCULAR: Regular rate and rhythm noted there no murmurs rubs or gallops normal S1 normal S2. GASTROINTESTINAL: The abdomen is soft. Abdomen is nontender. MUSCULOSKELETAL/EXTREMITIES: There is no evidence of gross deformity full range of motion is noted in the hips and shoulders. SKIN: There is no obvious evidence of any rash. There are no petechiae, pallor or cyanosis noted. NEUROLOGIC: Patient is awake alert and oriented x3. There is no facial droop. Patient is able to hold each leg off the bed for greater than 5 seconds. Speech is pressured but understandable. Foreign Language Instructor strength was symmetric. MEDICAL DECISION MAKING: The patient is a 76-year-old female who presented to the emergency department for an evaluation of strokelike symptoms. The patient was made a stroke alert prior to arrival. The patient was taken directly to CT. By the time the patient returned to the room she had no weakness or facial droop. Her speech was still pressured. I discussed her case with the telestroke neurologist from [facility]. At this time he does not feel the patient would meet criteria for thrombolytic intervention and I agree. He does recommend further stroke work-up as an inpatient as well as aspirin. I discussed this case with the on-call [facility] hospitalist. Triage Nursing notes reviewed. Prior medical records reviewed Vital Signs: reviewed and remarkable for elevated blood pressure Differential diagnosis: Infection, dehydration, metabolic abnormality, hypo/hyperglycemia, electrolyte disturbance, anemia, hypoxia, cardiac sources, intracerebral event, toxicologic, neurologic, as well as other pathologies. ER treatment provided: See below Diagnostics interpreted by me: ECG: EKG was obtained in the emergency department. My interpretation is sinus tachycardia 117 bpm. There was no ectopy. There was no acute ST segment abnormalities noted. Incomplete right bundle branch block pattern was appreciated. This was compared to a tracing from April 18, 2022. There is an increase in the rate otherwise no significant changes were noted. Cardiac Monitoring: An order was placed for continuous cardiac monitoring. The monitor shows a rate of 116 bpm with sinus tachycardia Laboratory studies: As stated above and show below. Imaging studies: See below Consultation(s): I discussed this case with Dr. Bills Discussed this case with Dr. Mayen ED COURSE: Procedures: none Critical Care: I have personally spent greater than 40 minutes of critical care time in the direct management of this patient. This includes bedside care, interpretation of diagnostic studies, and testing, discussion with consultants, patient, and family members, and other required patient management activities. This 40 minutes is in excess of all separately billable procedures. Past Med/Surg History Medical History Arthritis Diverticular disease Glaucoma b/l Hiatal hernia Hx of basal cell carcinoma s/p excision Multinodular goiter Osteoporosis Seizure Hx epilepsy- no seizure x years Surgical History History of elbow surgery RIGHT Hx laparoscopic cholecystectomy (08/06/19) Laparoscopic Cholecystectomy Dr. Ty 08/06/19 Hx of basal cell carcinoma excision Family History Daughter Breast cancer Social History Smoking Status: Never smoker Second Hand Exposure: No; Hx Alcohol Use: Yes Alcohol type: wine Hx Substance Use: No Preferred Language: Belgian Communication Ability: Effective Sas Bi Developer Required: No Beliefs That Will Affect Care: None marital status: Current Living Situation: Alone Current Living Situation Comment: Lives alone in apartment in [place] community in [place] current occupational status: retired How many Children do You have: 1 Feels Safe at Home: Yes Assistive Devices: Cane and Walker Allergies Allergies Allergy/AdvReac Type Severity Reaction Status Date / Time No Known Allergies Allergy Verified 04/21/22 18:18 Home Meds Home Medications Medication Instructions Recorded Confirmed calcium carbonate 600 mg-vitamin 1 cap PO BID 07/08/19 04/21/22 D3 5 mcg (200 unit) capsule (Calcium 600 + D(3)) carbamazepine 400 mg 400 mg PO BID 07/08/19 04/21/22 tablet,extended release,12 hr (Tegretol XR) glucosamine-chondroitin 250 mg-200 1 tab PO BID 07/24/19 04/21/22 mg tablet (Osteo Bi-Flex) multivit with 1 tab PO QAM 07/24/19 04/21/22 [id number] 8 mg iron-400 mcg-300 mcg tablet (Centrum Silver Women) turmeric 400 mg capsule 400 mg PO QAM 07/24/19 04/21/22 ascorbic acid (vitamin C) 500 mg 500 mg PO HS 08/06/19 04/21/22 tablet (Vitamin C) meloxicam 7.5 mg tablet 7.5 mg PO DAILY 04/16/22 04/21/22 vitamin B complex-folic acid 2,000 1 cap PO DAILY 04/16/22 04/21/22 mcg capsule Previous Rx's Medication Instructions Recorded azithromycin 500 mg tablet 500 mg PO DAILY #4 tab 04/19/22 cefdinir 300 mg capsule 300 mg PO BID 4 Days #8 cap 04/19/22 Results & Data (ED) Vital Signs Vital Signs - 24 hr 04/21/22 17:50 04/21/22 18:10 04/21/22 18:30 Temperature 36.6 C Temperature Source Oral Pulse Rate 119 H 112 H 116 H Pulse Rate from SpO2 Sensor 112 H 116 H Pulse Rhythm Regular Pulse Strength Normal Respiratory Rate 20 18 24 Respiratory Effort / Characteristics Non-Labored Spontaneous Respiratory Depth Normal Respiratory Pattern Regular Blood Pressure 157/78 H 147/81 H 142/85 H Blood Pressure Mean 104 103 104 Blood Pressure Position Sitting Pulse Oximetry 95 96 96 Oxygen Delivery Method Room Air Sepsis Recent Fever Within 48 Hours No Sepsis New/Unexplained Change in Mental Status No Sepsis Action Taken by Nursing No Action Required Home Medications Current Medication List: was personally reviewed by me Laboratory Data Attestation: I reviewed the patient's lab results. Result diagrams: 04/21/22 17:58 04/21/22 17:58 Lab Results 04/21/22 04/21/22 04/21/22 Range/Units 17:58 17:58 17:58 WBC 16.08 H (4.8-10.8) K/uL RBC 4.67 (4.2-5.4) M/uL Hgb 15.6 (12.0-16.0) g/dL Hct 45.1 (37-47) % MCV 96.6 (80-100) fL MCH 33.4 (25-34) pg MCHC 34.6 (32-36) g/dL RDW Std Deviation 44.9 (36.4-46.3) fL RDW Coeff of Bhavesh 12.9 (11.5-14.5) % Plt Count 344 (130-400) K/uL MPV 9.5 (7.4-10.4) fL Immature Gran % (Auto) 0.7 % Neut % (Auto) 57.8 % Lymph % (Auto) 26.9 % Citrus % (Auto) 13.0 % Eos % (Auto) 1.5 % Baso % (Auto) 0.1 % Neut # (Auto) 9.31 H (1.4-6.5) K/uL Lymph # (Auto) 4.32 H (1.2-3.4) K/uL Citrus # (Auto) 2.09 H (0.11-0.59) K/uL Eos # (Auto) 0.24 (0-0.5) K/uL Baso # (Auto) 0.01 (0-0.2) K/uL Immature Gran # (Auto) 0.11 H (0.00-0.02) K/uL PT 9.8 (9.0-12.0) Seconds INR 0.9 (0.9-1.1) APTT 23.9 (21.0-31.0) Seconds PTT Ratio 0.9 Sodium 140 (136-145) mmol/L Potassium 4.1 (3.5-5.1) mmol/L Chloride 104 (98-107) mmol/L Carbon Dioxide 28 (21-32) mmol/L Anion Gap 8 (3-11) BUN 21 (6-23) mg/dl Creatinine 0.75 (0.6-1.2) mg/dl Est Cr Clr Drug Dosing 59.1 ml/min Est GFR ( Amer) 91.0 ml/min Est GFR (Non-Af Amer) 78.5 ml/min BUN/Creatinine Ratio 28.0 H (10-20) Glucose 95 (70-99(Fasting)) mg/dl Calcium 9.5 (8.5-10.1) mg/dl Magnesium 2.1 (1.7-2.4) mg/dl Total Bilirubin 0.4 (0.2-1.0) mg/dl AST 20 (13-39) U/L ALT 26 (7-52) U/L Alkaline Phosphatase 109 H (34-104) U/L Troponin I High Sens 5.2 (0-14) pg/ml Total Protein 7.0 (6.0-8.3) gm/dl Albumin 4.3 (3.4-5.0) gm/dl Globulin 2.7 (2.5-4.0) gm/dl Albumin/Globulin Ratio 1.6 (0.9-2) Urine Color Urine Appearance (Clear) Urine pH (4.5-7.5) Ur Specific [place] (1.000-1.030) Urine Protein (Negative) Urine Glucose (UA) (Negative) Urine Ketones (Negative) Urine Blood (Negative) Urine Nitrite (Negative) Urine Bilirubin (Negative) Urine Urobilinogen (Negative) Ur Leukocyte Esterase (Negative) Carbamazepine (4-12) mcg/ml SARS-CoV-2, RNA, NAAT (NEGATIVE) 04/21/22 04/21/22 04/21/22 Range/Units 17:58 18:25 19:30 WBC (4.8-10.8) K/uL RBC (4.2-5.4) M/uL Hgb (12.0-16.0) g/dL Hct (37-47) % MCV (80-100) fL MCH (25-34) pg MCHC (32-36) g/dL RDW Std Deviation (36.4-46.3) fL RDW Coeff of Bhavesh (11.5-14.5) % Plt Count (130-400) K/uL MPV (7.4-10.4) fL Immature Gran % (Auto) % Neut % (Auto) % Lymph % (Auto) % Citrus % (Auto) % Eos % (Auto) % Baso % (Auto) % Neut # (Auto) (1.4-6.5) K/uL Lymph # (Auto) (1.2-3.4) K/uL [place] # (Auto) (0.11-0.59) K/uL Eos # (Auto) (0-0.5) K/uL Baso # (Auto) (0-0.2) K/uL Immature Gran # (Auto) (0.00-0.02) K/uL PT (9.0-12.0) Seconds INR (0.9-1.1) APTT (21.0-31.0) Seconds PTT Ratio Sodium (136-145) mmol/L Potassium (3.5-5.1) mmol/L Chloride (98-107) mmol/L Carbon Dioxide (21-32) mmol/L Anion Gap (3-11) BUN (6-23) mg/dl Creatinine (0.6-1.2) mg/dl Est Cr Clr Drug Dosing ml/min Est GFR ( Amer) ml/min Est GFR (Non-Af Amer) ml/min BUN/Creatinine Ratio (10-20) Glucose (70-99(Fasting)) mg/dl Calcium (8.5-10.1) mg/dl Magnesium (1.7-2.4) mg/dl Total Bilirubin (0.2-1.0) mg/dl AST (13-39) U/L ALT (7-52) U/L Alkaline Phosphatase (34-104) U/L Troponin I High Sens (0-14) pg/ml Total Protein (6.0-8.3) gm/dl Albumin (3.4-5.0) gm/dl Globulin (2.5-4.0) gm/dl Albumin/Globulin Ratio (0.9-2) Urine Color Yellow Urine Appearance Clear (Clear) Urine pH 6.0 (4.5-7.5) Ur Specific [place] > 1.045 H (1.000-1.030) Urine Protein Negative (Negative) Urine Glucose (UA) Negative (Negative) Urine Ketones Trace H (Negative) Urine Blood Negative (Negative) Urine Nitrite Negative (Negative) Urine Bilirubin Negative (Negative) Urine Urobilinogen Negative (Negative) Ur Leukocyte Esterase Negative (Negative) Carbamazepine 13.7 H* (4-12) mcg/ml SARS-CoV-2, RNA, NAAT NEGATIVE (NEGATIVE) Administered Medications Discontinued Medications Ioversol (Optiray 320 125ml) 119 ml IV ONCE ONE Stop: 04/21/22 17:59 Last Admin: 04/21/22 17:58 Dose: 119 ml Documented by: [id number] Imaging Data Radiologist's Impression: Chest X-Ray 04/21/22 17:41 XR chest 1V portable CLINICAL HISTORY: Stroke Like Symptoms TECHNIQUE: Single frontal radiograph of the chest was obtained. Comparison: Comparison is made to chest radiograph 04/16/2022 FINDINGS: No lines and tubes are seen. Cardiomegaly is noted. The lungs are clear. No evidence of pleural effusion or pneumothorax. IMPRESSION: Stable cardiomegaly. No acute abnormalities are seen. ACT 112: Negative or not required by law. Electronically signed by: Varinder Meyer M.D. 04/21/2022 6:[address] 04/21/22 17:41 CT angio neck with con, CT angio head w con, CT head/brain wo con CLINICAL HISTORY: Stroke Like Symptoms , left facial droop and left upper extremity weakness. No history of stroke, history of seizure disorder. TECHNIQUE: Contiguous axial CT images of the head were acquired from the base of the skull to the vertex without intravenous contrast administration. CT angiography of the head and neck was performed following intravenous administration of iodinated contrast. Coronal and sagittal MIPS were obtained from the axial data set and were submitted for review. Automated dose lowering techniques and/or adjustment according to patient size were utilized for this examination. All measurements were calculated based on NASCET criteria. CT DOSE: 1083.46 mGy.cm Comparison: Comparison is made to CT head 03/22/2021 FINDINGS: CT head: There is no acute intracranial hemorrhage or evidence of acute territorial infarction. No shift of the midline structures, mass effect, or extra-axial abnormalities are shown. Heterogeneous thyroid with multiple nodules are seen, with massively enlarged left lobe. CTA Neck: The left common carotid artery shares common origin with the innominate artery. There is no significant atherosclerotic plaque in the aortic arch or the origins of the innominate, left common carotid, and left subclavian arteries. The common carotid, external carotid, cervical segments of the internal carotid arteries, and the cervical segments of the vertebral arteries are patent without hemodynamically significant stenosis. The left vertebral artery is dominant. CTA Head: The anterior and posterior cerebral circulations are patent. No hemodynamically significant stenosis, aneurysm, dissection, or arteriovenous malformation is shown. origin of the left posterior cerebral artery is seen. IMPRESSION: 1. No acute intracranial hemorrhage, evidence of acute territorial infarction, or other acute intracranial disease process. 2. No occlusion, hemodynamically significant stenosis, aneurysm, dissection, or arteriovenous malformation in the major intracranial arteries. 3. No occlusion, hemodynamically significant stenosis, or dissection in the major cervical arteries. 4. Enlarged heterogeneous thyroid with multiple nodules. If not previously evaluated, nonemergent thyroid ultrasound can be performed. Assessment of stenosis of the internal carotid arteries is based on NASCET criteria. ACT 112: Negative or not required by law. Electronically signed by: Varinder Meyer M.D. 04/21/2022 6:16 PM Head CTA 04/21/22 17:41 CT angio neck with con, CT angio head w con, CT head/brain wo con CLINICAL HISTORY: Stroke Like Symptoms , left facial droop and left upper extremity weakness. No history of stroke, history of seizure disorder. TECHNIQUE: Contiguous axial CT images of the head were acquired from the base of the skull to the vertex without intravenous contrast administration. CT angiography of the head and neck was performed following intravenous administration of iodinated contrast. Coronal and sagittal MIPS were obtained from the axial data set and were submitted for review. Automated dose lowering techniques and/or adjustment according to patient size were utilized for this examination. All measurements were calculated based on NASCET criteria. CT DOSE: 1083.46 mGy.cm Comparison: Comparison is made to CT head 03/22/2021 FINDINGS: CT head: There is no acute intracranial hemorrhage or evidence of acute territorial infarction. No shift of the midline structures, mass effect, or extra-axial abnormalities are shown. Heterogeneous thyroid with multiple nodules are seen, with massively enlarged left lobe. CTA Neck: The left common carotid artery shares common origin with the innominate artery. There is no significant atherosclerotic plaque in the aortic arch or the origins of the innominate, left common carotid, and left subclavian arteries. The common carotid, external carotid, cervical segments of the internal carotid arteries, and the cervical segments of the vertebral arteries are patent without hemodynamically significant stenosis. The left vertebral artery is dominant. CTA Head: The anterior and posterior cerebral circulations are patent. No hemodynamically significant stenosis, aneurysm, dissection, or arteriovenous malformation is shown. origin of the left posterior cerebral artery is seen. IMPRESSION: 1. No acute intracranial hemorrhage, evidence of acute territorial infarction, or other acute intracranial disease process. 2. No occlusion, hemodynamically significant stenosis, aneurysm, dissection, or arteriovenous malformation in the major intracranial arteries. 3. No occlusion, hemodynamically significant stenosis, or dissection in the major cervical arteries. 4. Enlarged heterogeneous thyroid with multiple nodules. If not previously evaluated, nonemergent thyroid ultrasound can be performed. Assessment of stenosis of the internal carotid arteries is based on NASCET criteria. ACT 112: Negative or not required by law. Electronically signed by: Varinder Meyer M.D. 04/21/2022 6:16 PM Neck CTA 04/21/22 17:41 CT angio neck with con, CT angio head w con, CT head/brain wo con CLINICAL HISTORY: Stroke Like Symptoms , left facial droop and left upper extremity weakness. No history of stroke, history of seizure disorder. TECHNIQUE: Contiguous axial CT images of the head were acquired from the base of the skull to the vertex without intravenous contrast administration. CT angiography of the head and neck was performed following intravenous administration of iodinated contrast. Coronal and sagittal MIPS were obtained from the axial data set and were submitted for review. Automated dose lowering techniques and/or adjustment according to patient size were utilized for this examination. All measurements were calculated based on NASCET criteria. CT DOSE: 1083.46 mGy.cm Comparison: Comparison is made to CT head 03/22/2021 FINDINGS: CT head: There is no acute intracranial hemorrhage or evidence of acute territorial infarction. No shift of the midline structures, mass effect, or extra-axial abnormalities are shown. Heterogeneous thyroid with multiple nodules are seen, with massively enlarged left lobe. CTA Neck: The left common carotid artery shares common origin with the innominate artery. There is no significant atherosclerotic plaque in the aortic arch or the origins of the innominate, left common carotid, and left subclavian arteries. The common carotid, external carotid, cervical segments of the internal carotid arteries, and the cervical segments of the vertebral arteries are patent without hemodynamically significant stenosis. The left vertebral artery is dominant. CTA Head: The anterior and posterior cerebral circulations are patent. No hemodynamically significant stenosis, aneurysm, dissection, or arteriovenous malformation is shown. origin of the left posterior cerebral artery is see n. IMPRESSION: 1. No acute intracranial hemorrhage, evidence of acute territorial infarction, or other acute intracranial disease process. 2. No occlusion, hemodynamically significant stenosis, aneurysm, dissection, or arteriovenous malformation in the major intracranial arteries. 3. No occlusion, hemodynamically significant stenosis, or dissection in the major cervical arteries. 4. Enlarged heterogeneous thyroid with multiple nodules. If not previously evaluated, nonemergent thyroid ultrasound can be performed. Assessment of stenosis of the internal carotid arteries is based on NASCET criteria. ACT 112: Negative or not required by law. Electronically signed by: Varinder Meyer M.D. 04/21/2022 6:16 PM Discharge Plan Visit Data Chief Complaint: Stroke Alert ED Provider: Howard Austin Discharge Problem: TIA (transient ischemic attack) Patient Disposition: Being Evaluated by Hospitalist Forms Stand Alone Forms: My [employer] Prescriptions Prescriptions: No Action carbamazepine [Tegretol XR] 400 mg Tablet Extended Release 12 Hr 400 mg PO BID RF: 0 Calcium 600 + D(3) 600 mg calcium- 200 unit Capsule 1 cap PO BID RF: 0 glucosamine-chondroitin [Osteo Bi-Flex] 250-200 mg Tablet 1 tab PO BID RF: 0 Centrum Silver Women 8 mg iron-400 mcg-300 mcg Tablet 1 tab PO QAM RF: 0 turmeric 400 mg Capsule 400 mg PO QAM RF: 0 ascorbic acid (vitamin C) [Vitamin C] 500 mg Tablet 500 mg PO HS RF: 0 vitamin B complex-folic acid 2,000 mcg Capsule 1 cap PO DAILY RF: 0 meloxicam 7.5 mg tablet 7.5 mg PO DAILY RF: 0 azithromycin 500 mg tablet 500 mg PO DAILY Qty: 4 RF: 0 cefdinir 300 mg capsule 300 mg PO BID 4 Days Qty: 8 RF: 0 Referrals Referrals: Elvia Rodriguez MD [Primary Care Provider] -
--- NOTE | 2022-04-21 18:18 | CT Scan Report ---
CT angio neck with con, CT angio head w con, CT head/brain wo con CLINICAL HISTORY: Stroke Like Symptoms , left facial droop and left upper extremity weakness. No hist ory of stroke, history of seizure disorder. TECHNIQUE: Contiguous axial CT images of the head were acquired from the base of the skull to the kathie britany without intravenous contrast administration. CT angiography of the head and neck was performed f ollowing intravenous administration of iodinated contrast. Coronal and sagittal MIPS were obtained fr om the axial data set and were submitted for review. Automated dose lowering techniques and/or adjus tment according to patient size were utilized for this examination. All measurements were calculated based on NASCET criteria. CT DOSE: 1083.46 mGy.cm Comparison: Comparison is made to CT head 03/22/2021 FINDINGS: CT head: There is no acute intracranial hemorrhage or evidence of acute territorial infarction. No sh ift of the midline structures, mass effect, or extra-axial abnormalities are shown. Heterogeneous thyroid with multiple nodules are seen, with massively enlarged left lobe. CTA Neck: The left common carotid artery shares common origin with the innominate artery. There is n o significant atherosclerotic plaque in the aortic arch or the origins of the innominate, left common carotid, and left subclavian arteries. The common carotid, external carotid, cervical segments of the internal carotid arteries, and the cervical segments of the vertebral arteries are patent without hemodynamically significant stenosis. The left vertebral artery is dominant. CTA Head: The anterior and posterior cerebral circulations are patent. No hemodynamically significan t stenosis, aneurysm, dissection, or arteriovenous malformation is shown. origin of the left po sterior cerebral artery is seen. IMPRESSION: 1. No acute intracranial hemorrhage, evidence of acute territorial infarction, or other acute intrac ranial disease process. 2. No occlusion, hemodynamically significant stenosis, aneurysm, dissection, or arteriovenous malfor mation in the major intracranial arteries. 3. No occlusion, hemodynamically significant stenosis, or dissection in the major cervical arteries. 4. Enlarged heterogeneous thyroid with multiple nodules. If not previously evaluated, nonemergent th yroid ultrasound can be performed. Assessment of stenosis of the internal carotid arteries is based on NASCET criteria. ACT 112: Negative or not required by law. Electronically signed by: Varinder Meyer M.D. 04/21/2022 6:16 PM
[2022-04-21 18:22] LABS: INR 0.9 (0.9-1.1); Partial Thromboplastin Ratio 0.9; Partial Thromboplastin Time 23.9 Seconds (21.0-31.0); Prothrombin Time 9.8 Seconds (9.0-12.0)
[2022-04-21 18:35] LABS: Albumin Globulin Ratio 1.6 (0.9-2); Albumin Level 4.3 gm/dl (3.4-5.0); Bilirubin,Total 0.4 mg/dl (0.2-1.0); Calcium 9.5 mg/dl (8.5-10.1); Creatinine Clr Calc Pharmacy 59.1 ml/min; Est GFR (Non-African American) 78.5 ml/min; Globulin 2.7 gm/dl (2.5-4.0); Magnesium 2.1 mg/dl (1.7-2.4); Potassium 4.1 mmol/L (3.5-5.1)
[2022-04-21 18:37] LABS: Troponin I High Sensitivity 5.2 pg/ml (0-14)
--- NOTE | 2022-04-21 18:57 | XRay Report ---
XR chest 1V portable CLINICAL HISTORY: Stroke Like Symptoms TECHNIQUE: Single frontal radiograph of the chest was obtained. Comparison: Comparison is made to chest radiograph 04/16/2022 FINDINGS: No lines and tubes are seen. Cardiomegaly is noted. The lungs are clear. No evidence of pleural effus ion or pneumothorax. IMPRESSION: Stable cardiomegaly. No acute abnormalities are seen. ACT 112: Negative or not required by law. Electronically signed by: Varinder Meyer M.D. 04/21/2022 6:55 PM
[2022-04-21 19:26] LABS: Basophils # (auto) 0.01 K/uL (0-0.2); Basophils % (auto) 0.1 %; Eosinophils # (auto) 0.24 K/uL (0-0.5); Eosinophils % (auto) 1.5 %; Hematocrit (blood only) 45.1 % (37-47); Hemoglobin 15.6 g/dL (12.0-16.0); Immature Granulocytes # (auto) 0.11 K/uL (0.00-0.02); Immature Granulocytes % (auto) 0.7 %; Lymphocytes # (auto) 4.32 K/uL (1.2-3.4); Lymphocytes % (auto) 26.9 %; Mean Corpuscular Hemoglobin 33.4 pg (25-34); Mean Corpuscular Hgb Conc 34.6 g/dL (32-36); Mean Corpuscular Volume 96.6 fL (80-100); Mean Platelet Volume 9.5 fL (7.4-10.4); Monocytes # (auto) 2.09 K/uL (0.11-0.59); Neutrophils # (auto) 9.31 K/uL (1.4-6.5); Neutrophils % (auto) 57.8 %; Platelet Count 344 K/uL (130-400); RDW Coefficient of Variation 12.9 % (11.5-14.5); RDW Standard Deviation 44.9 fL (36.4-46.3); Red Blood Count 4.67 M/uL (4.2-5.4); White Blood Count 16.08 K/uL (4.8-10.8)
[2022-04-21 19:41] LABS: Appearance Urine Clear (Clear); Bilirubin Urine Negative (Negative); Blood Urine Negative (Negative); Color Urine Yellow; Glucose Urine UA Negative (Negative); Ketones Urine Trace (Negative); Leukocyte Esterase Urine Negative (Negative); Nitrite Urine Negative (Negative); Protein Urine Negative (Negative); Specific Gravity Urine > 1.045 (1.000-1.030); Urobilinogen Urine Negative (Negative)
[2022-04-21] MEDS ORDERED: ASPIRIN CHEW 324 MG PO STA (20:02)
[2022-04-21] MEDS ORDERED: LACTATED RINGER'S 1,000 ML IV ONE (20:10)
--- NOTE | 2022-04-21 20:47 | History & Physical Report ---
Date of Service April 21, 2022 Assessment & Plan (1) TIA (transient ischemic attack): Plan: Transient right-sided weakness seizure disorder, stable on carbamazepine Supratherapeutic AED levels anxiety disorder, at baseline Diarrhea rule out recurrent C. difficile given recent antibiotic Rx Hyperglycemia rule out DM OBS Medical telemetry Neurochecks Aspirin for secondary stroke prevention MRI brain Re: TIA TTE, Neurology consult for TIA Hold carbamazepine until level within normal limits Stool C. difficile Check hemoglobin A1c DVT prophylaxis. Lovenox subcu Full code Patient daughter requesting updates from providers. Ms. Angeles Neely, contact #[phone]. Text document was generated using [employer] voice recognition software. It may contain grammatical or spelling errors. Kindly contact undersigned for clarification of any documentation item in question. History of Present Illness Chief Complaint: Strokelike symptoms as per records Primary Care Provider: Elvia Rodriguez MD History obtained from patient daughter, and records. Medical history significant for seizure disorder, anxiety disorder, history of C. difficile. Recent confinement April 16-2021 for. Patient discharged to rehab facility on cefdinir and azithromycin course. This afternoon, patient noted to have right facial droop, right-sided weakness and mumbling speech at the rehab facility. No witnessed seizures. Patient has no recollection of the events. Denies chest pain, SOB. Diarrhea symptoms without abdominal pain as per daughter. Right-sided weakness improved at the ER. Medical Historyas above Surgical History :Elbow surgery, cholecystectomy, cataract surgeries Family History : Breast cancer, heart disease, COPD, uterine cancer Personal/Social history : Non-smoker, occasional EtOH intake Allergies Allergy/AdvReac Type Severity Reaction Status Date / Time No Known Allergies Allergy Verified 04/21/22 18:18 Home Medications Medication Instructions Recorded Confirmed Type calcium carbonate 600 mg-vitamin 1 cap PO BID 07/08/19 04/21/22 History D3 5 mcg (200 unit) capsule (Calcium 600 + D(3)) carbamazepine 400 mg 400 mg PO BID 07/08/19 04/21/22 History tablet,extended release,12 hr (Tegretol XR) glucosamine-chondroitin 250 mg-200 1 tab PO BID 07/24/19 04/21/22 History mg tablet (Osteo Bi-Flex) multivit with 1 tab PO QAM 07/24/19 04/21/22 History vnktexog-ndqk-WC-lutein 8 mg iron-400 mcg-300 mcg tablet (Centrum Silver Women) turmeric 400 mg capsule 400 mg PO QAM 07/24/19 04/21/22 History ascorbic acid (vitamin C) 500 mg 500 mg PO HS 08/06/19 04/21/22 History tablet (Vitamin C) meloxicam 7.5 mg tablet 7.5 mg PO DAILY 04/16/22 04/21/22 History vitamin B complex-folic acid 2,000 1 cap PO DAILY 04/16/22 04/21/22 History mcg capsule azithromycin 500 mg tablet 500 mg PO DAILY #4 tab 04/19/22 04/21/22 Rx cefdinir 300 mg capsule 300 mg PO BID 4 Days #8 cap 04/19/22 04/21/22 Rx Past Med/Surg History Medical History Arthritis Diverticular disease Glaucoma b/l Hiatal hernia Hx of basal cell carcinoma s/p excision Multinodular goiter Osteoporosis Seizure Hx epilepsy- no seizure x years Surgical History History of elbow surgery RIGHT Hx laparoscopic cholecystectomy (08/06/19) Laparoscopic Cholecystectomy Dr. Ty 08/06/19 Hx of basal cell carcinoma excision Family History Daughter Breast cancer Social History Smoking Status: Never smoker Second Hand Exposure: No; Hx Alcohol Use: Yes Alcohol type: wine Hx Substance Use: No Preferred Language: Spanish Communication Ability: Effective Warehouse Coordinator Required: No Beliefs That Will Affect Care: None marital status: Current Living Situation: Alone Current Living Situation Comment: Lives alone in apartment in correction community in [place] current occupational status: retired How many Children do You have: 1 Other Information That Helps Us Care for You: No Feels Safe at Home: Yes Safety Concerns: Feels Safe At This Time Assistive Devices: Walker Review of Systems Review of Systems: As per HPI, all other systems reviewed and negative Physical Exam Physical Exam: GENERAL: Comfortable, slightly anxious, no respiratory distress SKIN: Normal color, warm HEENT: [place] palpebral conjunctivae, no ptosis, dry buccal mucosa NECK : Supple, no tenderness CHEST : CTA, no tenderness HEART : Tachycardic, no obvious murmurs ABDOMEN: Some distention, nontender EXTREMITIES : Minimal LE swelling, no LE tenderness, no other conspicuous deformities noted NEUROLOGIC : Coherent, no facial asymmetry, no other gross focality Results & Data Results & Data ([facility]) Vital Signs (Past 12 Hours) Vital Signs Temp Pulse Pulse Resp BP BP Pulse Ox 04/21/22 20:23 107 H 18 140/85 94 04/21/22 18:30 116 H 24 142/85 H 96 04/21/22 18:10 112 H 18 147/81 H 96 04/21/22 17:50 36.6 C 119 H 20 157/78 H 95 Laboratory Results Laboratory Results WBC 16.08 K/uL (4.8-10.8) H 04/21/22 17:58 RBC 4.67 M/uL (4.2-5.4) 04/21/22 17:58 Hgb 15.6 g/dL (12.0-16.0) 04/21/22 17:58 Hct 45.1 % (37-47) 04/21/22 17:58 MCV 96.6 fL (80-100) 04/21/22 17:58 MCH 33.4 pg (25-34) 04/21/22 17:58 MCHC 34.6 g/dL (32-36) 04/21/22 17:58 RDW Std Deviation 44.9 fL (36.4-46.3) 04/21/22 17:58 RDW Coeff of Bhavesh 12.9 % (11.5-14.5) 04/21/22 17:58 Plt Count 344 K/uL (130-400) 04/21/22 17:58 MPV 9.5 fL (7.4-10.4) 04/21/22 17:58 Immature Gran % (Auto) 0.7 % 04/21/22 17:58 Neut % (Auto) 57.8 % 04/21/22 17:58 Lymph % (Auto) 26.9 % 04/21/22 17:58 [place] % (Auto) 13.0 % 04/21/22 17:58 Eos % (Auto) 1.5 % 04/21/22 17:58 Baso % (Auto) 0.1 % 04/21/22 17:58 Neut # (Auto) 9.31 K/uL (1.4-6.5) H 04/21/22 17:58 Lymph # (Auto) 4.32 K/uL (1.2-3.4) H 04/21/22 17:58 [place] # (Auto) 2.09 K/uL (0.11-0.59) H 04/21/22 17:58 Eos # (Auto) 0.24 K/uL (0-0.5) 04/21/22 17:58 Baso # (Auto) 0.01 K/uL (0-0.2) 04/21/22 17:58 Immature Gran # (Auto) 0.11 K/uL (0.00-0.02) H 04/21/22 17:58 PT 9.8 Seconds (9.0-12.0) 04/21/22 17:58 INR 0.9 (0.9-1.1) 04/21/22 17:58 APTT 23.9 Seconds (21.0-31.0) 04/21/22 17:58 PTT Ratio 0.9 04/21/22 17:58 Sodium 140 mmol/L (136-145) 04/21/22 17:58 Potassium 4.1 mmol/L (3.5-5.1) 04/21/22 17:58 Chloride 104 mmol/L (98-107) 04/21/22 17:58 Carbon Dioxide 28 mmol/L (21-32) 04/21/22 17:58 Anion Gap 8 (3-11) 04/21/22 17:58 BUN 21 mg/dl (6-23) 04/21/22 17:58 Creatinine 0.75 mg/dl (0.6-1.2) 04/21/22 17:58 Est Cr Clr Drug Dosing 59.1 ml/min 04/21/22 17:58 Est GFR ( Amer) 91.0 ml/min 04/21/22 17:58 Est GFR (Non-Af Amer) 78.5 ml/min 04/21/22 17:58 BUN/Creatinine Ratio 28.0 (10-20) H 04/21/22 17:58 Glucose 95 mg/dl (70-99(Fasting)) 04/21/22 17:58 Calcium 9.5 mg/dl (8.5-10.1) 04/21/22 17:58 Magnesium 2.1 mg/dl (1.7-2.4) 04/21/22 17:58 Total Bilirubin 0.4 mg/dl (0.2-1.0) 04/21/22 17:58 AST 20 U/L (13-39) 04/21/22 17:58 ALT 26 U/L (7-52) 04/21/22 17:58 Alkaline Phosphatase 109 U/L (34-104) H 04/21/22 17:58 Troponin I High Sens 5.2 pg/ml (0-14) 04/21/22 17:58 Total Protein 7.0 gm/dl (6.0-8.3) 04/21/22 17:58 Albumin 4.3 gm/dl (3.4-5.0) 04/21/22 17:58 Globulin 2.7 gm/dl (2.5-4.0) 04/21/22 17:58 Albumin/Globulin Ratio 1.6 (0.9-2) 04/21/22 17:58 Urine Color Yellow 04/21/22 19:30 Urine Appearance Clear (Clear) 04/21/22 19:30 Urine pH 6.0 (4.5-7.5) 04/21/22 19:30 Ur Specific [place] > 1.045 (1.000-1.030) H 04/21/22 19:30 Urine Protein Negative (Negative) 04/21/22 19:30 Urine Glucose (UA) Negative (Negative) 04/21/22 19:30 Urine Ketones Trace (Negative) H 04/21/22 19:30 Urine Blood Negative (Negative) 04/21/22 19:30 Urine Nitrite Negative (Negative) 04/21/22 19:30 Urine Bilirubin Negative (Negative) 04/21/22 19:30 Urine Urobilinogen Negative (Negative) 04/21/22 19:30 Ur Leukocyte Esterase Negative (Negative) 04/21/22 19:30 Carbamazepine 13.7 mcg/ml (4-12) H* 04/21/22 17:58 SARS-CoV-2, RNA, NAAT NEGATIVE (NEGATIVE) 04/21/22 18:25 Impressions Chest X-Ray 04/21/22 17:41 XR chest 1V portable CLINICAL HISTORY: Stroke Like Symptoms TECHNIQUE: Single frontal radiograph of the chest was obtained. Comparison: Comparison is made to chest radiograph 04/16/2022 FINDINGS: No lines and tubes are seen. Cardiomegaly is noted. The lungs are clear. No evidence of pleural effusion or pneumothorax. IMPRESSION: Stable cardiomegaly. No acute abnormalities are seen. ACT 112: Negative or not required by law. Electronically signed by: Varinder Meyer M.D. 04/21/2022 6:[address] 04/21/22 17:41 CT angio neck with con, CT angio head w con, CT head/brain wo con CLINICAL HISTORY: Stroke Like Symptoms , left facial droop and left upper extremity weakness. No history of stroke, history of seizure disorder. TECHNIQUE: Contiguous axial CT images of the head were acquired from the base of the skull to the vertex without intravenous contrast administration. CT angiography of the head and neck was performed following intravenous administration of iodinated contrast. Coronal and sagittal MIPS were obtained from the axial data set and were submitted for review. Automated dose lowering techniques and/or adjustment according to patient size were utilized for this examination. All measurements were calculated based on NASCET criteria. CT DOSE: 1083.46 mGy.cm Comparison: Comparison is made to CT head 03/22/2021 FINDINGS: CT head: There is no acute intracranial hemorrhage or evidence of acute territorial infarction. No shift of the midline structures, mass effect, or extra-axial abnormalities are shown. Heterogeneous thyroid with multiple nodules are seen, with massively enlarged left lobe. CTA Neck: The left common carotid artery shares common origin with the innominate artery. There is no significant atherosclerotic plaque in the aortic arch or the origins of the innominate, left common carotid, and left subclavian arteries. The common carotid, external carotid, cervical segments of the in ternal carotid arteries, and the cervical segments of the vertebral arteries are patent without hemodynamically significant stenosis. The left vertebral artery is dominant. CTA Head: The anterior and posterior cerebral circulations are patent. No hemodynamically significant stenosis, aneurysm, dissection, or arteriovenous malformation is shown. origin of the left posterior cerebral artery is seen. IMPRESSION: 1. No acute intracranial hemorrhage, evidence of acute territorial infarction, or other acute intracranial disease process. 2. No occlusion, hemodynamically significant stenosis, aneurysm, dissection, or arteriovenous malformation in the major intracranial arteries. 3. No occlusion, hemodynamically significant stenosis, or dissection in the major cervical arteries. 4. Enlarged heterogeneous thyroid with multiple nodules. If not previously evaluated, nonemergent thyroid ultrasound can be performed. Assessment of stenosis of the internal carotid arteries is based on NASCET criteria. ACT 112: Negative or not required by law. Electronically signed by: Varinder Meyer M.D. 04/21/2022 6:16 PM Head CTA 04/21/22 17:41 CT angio neck with con, CT angio head w con, CT head/brain wo con CLINICAL HISTORY: Stroke Like Symptoms , left facial droop and left upper extremity weakness. No history of stroke, history of seizure disorder. TECHNIQUE: Contiguous axial CT images of the head were acquired from the base of the skull to the vertex without intravenous contrast administration. CT angiography of the head and neck was performed following intravenous administration of iodinated contrast. Coronal and sagittal MIPS were obtained from the axial data set and were submitted for review. Automated dose lowering techniques and/or adjustment according to patient size were utilized for this examination. All measurements were calculated based on NASCET criteria. CT DOSE: 1083.46 mGy.cm Comparison: Comparison is made to CT head 03/22/2021 FINDINGS: CT head: There is no acute intracranial hemorrhage or evidence of acute territorial infarction. No shift of the midline structures, mass effect, or extra-axial abnormalities are shown. Heterogeneous thyroid with multiple nodules are seen, with massively enlarged left lobe. CTA Neck: The left common carotid artery shares common origin with the innominate artery. There is no significant atherosclerotic plaque in the aortic arch or the origins of the innominate, left common carotid, and left subclavian arteries. The common carotid, external carotid, cervical segments of the internal carotid arteries, and the cervical segments of the vertebral arteries are patent without hemodynamically significant stenosis. The left vertebral artery is dominant. CTA Head: The anterior and posterior cerebral circulations are patent. No hemodynamically significant stenosis, aneurysm, dissection, or arteriovenous malformation is shown. origin of the left posterior cerebral artery is seen. IMPRESSION: 1. No acute intracranial hemorrhage, evidence of acute territorial infarction, or other acute intracranial disease process. 2. No occlusion, hemodynamically significant stenosis, aneurysm, dissection, or arteriovenous malformation in the major intracranial arteries. 3. No occlusion, hemodynamically significant stenosis, or dissection in the pedro or cervical arteries. 4. Enlarged heterogeneous thyroid with multiple nodules. If not previously evaluated, nonemergent thyroid ultrasound can be performed. Assessment of stenosis of the internal carotid arteries is based on NASCET criteria. ACT 112: Negative or not required by law. Electronically signed by: Varinder Meyer M.D. 04/21/2022 6:16 PM Neck CTA 04/21/22 17:41 CT angio neck with con, CT angio head w con, CT head/brain wo con CLINICAL HISTORY: Stroke Like Symptoms , left facial droop and left upper extremity weakness. No history of stroke, history of seizure disorder. TECHNIQUE: Contiguous axial CT images of the head were acquired from the base of the skull to the vertex without intravenous contrast administration. CT angiography of the head and neck was performed following intravenous administration of iodinated contrast. Coronal and sagittal MIPS were obtained from the axial data set and were submitted for review. Automated dose lowering techniques and/or adjustment according to patient size were utilized for this examination. All measurements were calculated based on NASCET criteria. CT DOSE: 1083.46 mGy.cm Comparison: Comparison is made to CT head 03/22/2021 FINDINGS: CT head: There is no acute intracranial hemorrhage or evidence of acute territorial infarction. No shift of the midline structures, mass effect, or extra-axial abnormalities are shown. Heterogeneous thyroid with multiple nodules are seen, with massively enlarged left lobe. CTA Neck: The left common carotid artery shares common origin with the innominate artery. There is no significant atherosclerotic plaque in the aortic arch or the origins of the innominate, left common carotid, and left subclavian arteries. The common carotid, external carotid, cervical segments of the internal carotid arteries, and the cervical segments of the vertebral arteries are patent without hemodynamically significant stenosis. The left vertebral art [place] is dominant. CTA Head: The anterior and posterior cerebral circulations are patent. No hemodynamically significant stenosis, aneurysm, dissection, or arteriovenous malformation is shown. origin of the left posterior cerebral artery is seen. IMPRESSION: 1. No acute intracranial hemorrhage, evidence of acute territorial infarction, or other acute intracranial disease process. 2. No occlusion, hemodynamically significant stenosis, aneurysm, dissection, or arteriovenous malformation in the major intracranial arteries. 3. No occlusion, hemodynamically significant stenosis, or dissection in the major cervical arteries. 4. Enlarged heterogeneous thyroid with multiple nodules. If not previously evaluated, nonemergent thyroid ultrasound can be performed. Assessment of stenosis of the internal carotid arteries is based on NASCET criteria. ACT 112: Negative or not required by law. Electronically signed by: Varinder Meyer M.D. 04/21/2022 6:16 PM Diagnostic Findings EKG as per my interpretation: Rate 115, sinus tachycardia, normal axis, incomplete RBBB, no ischemia
[2022-04-21] MEDS ORDERED: PROMETHAZINE HCL 6.25 MG in SODIUM CHLORIDE 0.9% 50 ML IV PRN (20:54)
[2022-04-21] MEDS ORDERED: oxyCODONE HCL IR 5 MG TAB (IMMEDIATE RELEASE) PO PRN (20:54)
[2022-04-21] MEDS ORDERED: NON-FORMULARY MEDICATION (Glucosamine-Chondroitin [Osteo Bi-Flex] 250-200 mg Tablet) PO SCH (22:34)
[2022-04-21] MEDS ORDERED: LORazepam 0.25 MG in SYRINGE 0.125 ML IV PRN (22:34)
[2022-04-22 06:40] LABS: Basophils # (auto) 0.01 K/uL (0-0.2); Basophils % (auto) 0.1 %; Eosinophils # (auto) 0.17 K/uL (0-0.5); Eosinophils % (auto) 1.5 %; Hematocrit (blood only) 38.5 % (37-47); Hemoglobin 13.2 g/dL (12.0-16.0); Immature Granulocytes # (auto) 0.07 K/uL (0.00-0.02); Immature Granulocytes % (auto) 0.6 %; Lymphocytes # (auto) 2.71 K/uL (1.2-3.4); Mean Corpuscular Hemoglobin 32.8 pg (25-34); Mean Corpuscular Hgb Conc 34.3 g/dL (32-36); Mean Corpuscular Volume 95.8 fL (80-100); Mean Platelet Volume 9.3 fL (7.4-10.4); Monocytes # (auto) 1.38 K/uL (0.11-0.59); Monocytes % (auto) 12.2 %; Neutrophils # (auto) 6.95 K/uL (1.4-6.5); Neutrophils % (auto) 61.6 %; Platelet Count 237 K/uL (130-400); RDW Coefficient of Variation 12.9 % (11.5-14.5); RDW Standard Deviation 44.9 fL (36.4-46.3); Red Blood Count 4.02 M/uL (4.2-5.4); White Blood Count 11.29 K/uL (4.8-10.8)
[2022-04-22 07:02] LABS: BUN Creatinine Ratio 22.2 (10-20); Calcium 8.5 mg/dl (8.5-10.1); Creatinine Clr Calc Pharmacy 84.6 ml/min; Est GFR (African American) 107.7 ml/min; Potassium 3.9 mmol/L (3.5-5.1)
[2022-04-22] MEDS: ASPIRIN 81 MG ECTAB PO SCH (07:44)
[2022-04-22] MEDS: VITAMIN B COMPLEX TAB PO SCH (07:45)
[2022-04-22] MEDS: CEROVITE ADV FORMULA TAB PO SCH (07:45)
[2022-04-22] MEDS: ENOXAPARIN INJ 40 MG/0.4 ML SYR SQ SCH (07:45)
--- NOTE | 2022-04-22 11:53 | Progress Notes ---
REASON FOR CONSULTATION: TIA. HISTORY OF PRESENT ILLNESS: The patient is a 76-year-old right-handed female who was recently hospit alized at our facility for an infection either pneumonia or urinary tract infection and was transferr ed to [facility]. She has been on antibiotics and experiencing significant diarrhea. Yesterda y, she developed difficulty with word finding, perhaps some dysarthria and was noted to have a right facial droop, right-sided weakness. No seizures were noted. The episode lasted several minutes. Debbie cast has no prior history of stroke or transient ischemic attack. The neurologic symptoms improved in [facility]. PAST MEDICAL HISTORY: Notable for arthritis, glaucoma, hiatal hernia, basal cell carcinoma, goiter, osteoporosis. She has a history of epilepsy. No seizures for many years. It sounds like she had on e generalized seizure and partial complex seizures. PAST SURGICAL HISTORY: Right elbow surgery, laparoscopic cholecystectomy, basal cell carcinoma excis ion, bilateral cataracts. FAMILY HISTORY: No family history of stroke or transient ischemic attack. Daughter has breast cance r. SOCIAL HISTORY: Nonsmoker. Rarely drinks alcohol. 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 LABORATORY DATA: Her white count on admission was 16 and is now 11, creatinine was 0.75, BUN and cre atinine ratio 28, alkaline phosphatase 109, LDL 105. Urinalysis, trace ketones. Tegretol non-trough 13.7. Trough level today was 5.8. IMAGING DATA: Imaging, which I reviewed, no acute infarction, no occlusion, dissection of the intrac ranial arteries. No significant hemodynamic stenosis of the cervical arteries. Enlarged heterogeneou s thyroid with multiple nodules. Electrocardiogram, sinus tachycardia, incomplete right bundle-branc h block. PHYSICAL EXAMINATION: VITAL SIGNS: On examination, 118/70, 76, 18, 36.5, 96% on room air. GENERAL: The patient is awake and alert. Speech and language are normal. Affect appropriate. She is oriented x3. There is no right/left confusion. Naming, repetition, and 3-step commands are westley l. NECK: There are no carotid bruits. HEART: Regular rate and rhythm. EXTREMITIES: No calf swelling or tenderness is noted. NEUROLOGIC: Pupils are post-surgical. I have difficulty visualizing the optic nerves. There are no rmal tracy to confrontation, motility, facial sensation, facial symmetry. Speech is nondysarthric. Motor is 5/5, no drift. Normal rapid alternating movements. Symmetric reflexes, downgoing toes. F [id number]-[id number] and cfpw-oh-fuvg are normal. Gait is not tested. Sensation is intact to light touch. IMPRESSION AND PLAN: Transient ischemic attack. The patient was not previously on antiplatelet ther apy. Plan dual antiplatelet therapy with aspirin and Plavix for 3 weeks and then aspirin monotherapy . Zio patch. Statin therapy with goal LDL of less than 70. The patient needs a Zio patch as an outp atient. History of partial complex and generalized seizures. Resume old dose of Tegretol. Trough level today was normal. We will repeat tomorrow. We will follow with you. Job ID: [id number]
[2022-04-22] MEDS: CLOPIDOGREL BISULFATE 75 MG TAB PO SCH (13:43)
[2022-04-22] MEDS: ATORVASTATIN 40 MG TAB PO SCH (13:43)
--- NOTE | 2022-04-22 17:28 | Hospitalist Progress Note ---
Date of Service April 22, 2022 Assessment & Plan (1) TIA (transient ischemic attack): Plan: Present on admission with stroke like symptoms with dysarthria, right facial droop and right-sided weakness. Stroke alert prior to arrival ER provider discussed the case with Miryam romero stroke-patient did not meet criteria for tPA since symptoms improved CTA head/neck showed no acute intracranial hemorrhage, evidence of acute territorial infarction, or other acute intracranial disease process. CT head showed no acute intracranial abnormality Echo showed normal LV wall motion. Left ventricle systolic function is normal with ejection fraction 60 to 65% Received aspirin in the ER Neuro on board recommend dual antiplatelet therapy with aspirin and Plavix for 3 weeks, then aspirin monotherapy. Zio patch. Will need to arrange for Zio patch as an outpatient Statin therapy with goal LDL of less than 70. Patient became very anxious When they started to trap her head she panicked and refused to do it I offered to give her additional Ativan to calm her down to do the MRI but she refused to go Will consider to repeat the CTA tomorrow Continue PT/OT Clinically improved Seizure disorder Carbamazepine level mildly elevate at 13.7 on admission Repeat carbamazepine level this morning 5.8 Carbamazepine resumed Continue seizure precaution Anxiety disorder Stable Diarrhea Stool for Cdiff for negative Hyperglycemia Hgba1C 5.3 Glucose stable Diarrhea Recent antibiotic therapy need to rule out C. difficile stool for C. difficile negative We will add loperamide as needed Monitor electrolytes Multinodular goiter CT showed enlarged heterogeneous thyroid with multiple nodules. If not previously evaluated, nonemergent thyroid ultrasound can be performed outpatient Recent TSH normal DVT prophylaxis. Lovenox subcu Patient daughter requesting updates from providers. Ms. Angeles Neely, contact #[phone]. Admission and Anticipated Discharge Date Admission Date: April 21, 2022 Subjective Pt was seen and examined for stroke like symptoms Sitting in bed with no acute distress. Pt said that she feels fine now She said she does not have any symptoms now, things are back to normal. Later in the afternoon received a call from the nurse that pt could not get the MRI. She was very relax after receiving the Ativan, but when they started to trap her head she panicked and refused to do it Denies any chest pain, palpitation, dizziness and SOB Review of Systems Review of Systems: All systems reviewed & are unremarkable except as noted in Subjective Physical Exam Physical Exam: General- No acute distress Head- atraumatic Eyes- PERRL, EOMI, ENT- oropharynx clear Neck- supple, no JVD Lungs- clear to auscultation Heart- regular rhythm; no murmur Abdomen- normal bowel sounds, soft, nontender Extremities- no calf tenderness Neuro- alert, oriented x 3; PERRL, EOMI; no facial palsy; no dysarthria Skin- warm & dry Results & Data Results & Data ([facility]) Vital Signs (Past 12 Hours) Vital Signs Temp Pulse Resp BP Pulse Ox 04/22/22 15:03 36.7 C 84 18 125/77 96 04/22/22 11:36 36.3 C L 71 18 138/82 98 04/22/22 07:28 36.5 C 76 18 118/70 96
[2022-04-23 06:15] LABS: Basophils # (auto) 0.01 K/uL (0-0.2); Basophils % (auto) 0.1 %; Eosinophils # (auto) 0.21 K/uL (0-0.5); Eosinophils % (auto) 2.1 %; Hematocrit (blood only) 37.2 % (37-47); Hemoglobin 12.5 g/dL (12.0-16.0); Immature Granulocytes # (auto) 0.03 K/uL (0.00-0.02); Immature Granulocytes % (auto) 0.3 %; Lymphocytes # (auto) 2.33 K/uL (1.2-3.4); Lymphocytes % (auto) 23.3 %; Mean Corpuscular Hemoglobin 32.1 pg (25-34); Mean Corpuscular Hgb Conc 33.6 g/dL (32-36); Mean Corpuscular Volume 95.4 fL (80-100); Mean Platelet Volume 8.8 fL (7.4-10.4); Monocytes # (auto) 1.11 K/uL (0.11-0.59); Monocytes % (auto) 11.1 %; Neutrophils # (auto) 6.31 K/uL (1.4-6.5); Neutrophils % (auto) 63.1 %; Platelet Count 236 K/uL (130-400); RDW Coefficient of Variation 13.2 % (11.5-14.5); RDW Standard Deviation 46.1 fL (36.4-46.3)
[2022-04-23 06:36] LABS: Creatinine Clr Calc Pharmacy 94.8 ml/min; Est GFR (Non-African American) 96.6 ml/min; Potassium 4.2 mmol/L (3.5-5.1)
[2022-04-23] MEDS: VITAMIN B COMPLEX TAB PO SCH (08:30)
[2022-04-23] MEDS: CEROVITE ADV FORMULA TAB PO SCH (08:30)
[2022-04-23] MEDS: ATORVASTATIN 40 MG TAB PO SCH (08:30)
[2022-04-23] MEDS: CLOPIDOGREL BISULFATE 75 MG TAB PO SCH (08:30)
[2022-04-23] MEDS: ASPIRIN 81 MG ECTAB PO SCH (08:31)
[2022-04-23] MEDS: ENOXAPARIN INJ 40 MG/0.4 ML SYR SQ SCH (08:31)
[2022-04-23 09:15] LABS: Estimated Average Glucose 105 mg/dl; Hemoglobin A1C 5.3 % (4.5-5.6)
--- NOTE | 2022-04-23 12:26 | CT Scan Report ---
CT head/brain wo con CLINICAL HISTORY: 76 years-old Female with f/u stroke like symptom. Acute strokelike symptoms TECHNIQUE: Multiple axial CT images of the head were obtained without contrast. A dose lowering tech nique was utilized adhering to the principles of ALARA. CT DOSE: 614.27 mGy.cm COMPARISON: Head CT 04/21/2022 FINDINGS: No acute intracranial hemorrhage, midline shift, intra-axial mass, hydrocephalus, territorial ischemi a or abnormal extra-axial collection. Mild involutional changes. White matter hypodensities suggest c hronic microvascular ischemic disease. Unchanged extra-axial calcifications adjacent to the right fro ntal lobe on image 24 measuring 10 mm. The calvarium is intact. Prior bilateral lens replacement. The paranasal sinuses, mastoid air cells, and middle ear cavities are clear. IMPRESSION: No acute intracranial abnormality. ACT 112: Negative or not required by law. The above report was generated using voice recognition software. It may contain grammatical, syntax o r spelling errors. Electronically signed by: Sulaiman Torres M.D. 04/23/2022 12:23 PM
--- NOTE | 2022-04-23 12:48 | Progress Notes ---
DATE OF SERVICE: 04/23/2022 I am seeing Ms. Kenney in followup. She is doing well without any recurrent events. She was un able to have an MRI as she did not tolerate the cage that she was placed in around her face for the s tudy. She is amenable to having an outpatient study. Followup CT of the head shows chronic microvas cular changes with no acute abnormality. Her echo did not show any cardioembolic source, although it was technically not adequate enough to rule out a PFO. In a patient of this age, I think it is not necessary to do a followup study to rule out a PFO unless she has recurrent episodes. IMPRESSION AND PLAN: Transient ischemic attack. Recommend dual antiplatelet therapy for 21 days and then aspirin monotherapy. No need to repeat echocardiogram, see above. Recommend the patient have an MRI of the brain as an outpatient if possible. Recommend a Zio patch. The patient's LDL is 105. Recommend treatment with statin with a goal LDL of 70 or less and recommend a Zio as an outpatient. She can be seen in followup in my office post-discharge. I have no objection to her returning to [facility]. Job ID: [id number]
--- NOTE | 2022-04-23 14:48 | Hospitalist Progress Note ---
Date of Service April 23, 2022 Assessment & Plan (1) TIA (transient ischemic attack): Plan: Present on admission with stroke like symptoms with dysarthria, right facial droop and right-sided weakness. Stroke alert prior to arrival ER provider discussed the case with Miryam romero stroke-patient did not meet criteria for tPA since symptoms improved CTA head/neck showed no acute intracranial hemorrhage, evidence of acute territorial infarction, or other acute intracranial disease process. CT head showed no acute intracranial abnormality Echo showed normal LV wall motion. Left ventricle systolic function is normal with ejection fraction 60 to 65% Unable to get the MRI head due to claustrophobia I offered to give her additional Ativan to calm her down to do the MRI but she refused to go CT head repeat showed no acute intracranial abnormality. Received aspirin in the ER Neuro on board recommend dual antiplatelet therapy with aspirin and Plavix for 3 weeks, then aspirin monotherapy. Neuro recommended the patient have an MRI of the brain as an outpatient if possible (with open MRI) Will need to arrange for Zio patch as an outpatient Statin therapy with goal LDL of less than 70. Continue PT/OT Clinically stable to transfer back to [facility] for rehab Follow up with neurology in 4 to 6 weeks Seizure disorder Carbamazepine level mildly elevate at 13.7 on admission Repeat carbamazepine level this morning 5.8 Continue Carbamazepine Continue seizure precaution Anxiety disorder Stable Diarrhea Stool for Cdiff for negative Hyperglycemia Hgba1C 5.3 Glucose stable Diarrhea Recent antibiotic therapy need to rule out C. difficile stool for C. difficile negative We will add loperamide as needed Monitor electrolytes Multinodular goiter CT showed enlarged heterogeneous thyroid with multiple nodules. If not previously evaluated, nonemergent thyroid ultrasound can be performed outpatient Recent TSH normal DVT prophylaxis. Lovenox subcu Patient daughter requesting updates from providers. Ms. Angeles Neely, contact #[phone]. Admission and Anticipated Discharge Date Admission Date: April 23, 2022 Subjective Pt was seen and examined for stroke like symptoms Sitting in bed with no acute distress. Pt said that she feels fine now She was not able to get the MRI done today yesterday since she is claustrophobic Denies any chest pain, palpitation, dizziness and SOB Review of Systems Review of Systems: All systems reviewed & are unremarkable except as noted in Subjective Physical Exam Physical Exam: General- No acute distress Head- atraumatic Eyes- PERRL, EOMI, ENT- oropharynx clear Neck- supple, no JVD Lungs- clear to auscultation Heart- regular rhythm; no murmur Abdomen- normal bowel sounds, soft, nontender Extremities- no calf tenderness Neuro- alert, oriented x 3; PERRL, EOMI; no facial palsy; no dysarthria Skin- warm & dry Results & Data Results & Data ([facility]) Vital Signs (Past 12 Hours) Vital Signs Temp Pulse Pulse Resp BP BP Pulse Ox 04/23/22 11:20 36.5 C 77 18 124/80 96 04/23/22 08:20 36.6 C 74 20 129/80 95 04/23/22 07:42 77 04/23/22 04:26 116/69 04/23/22 02:51 36.8 C 75 18 99/69 L 96
--- NOTE | 2022-04-23 15:45 | Discharge Summary ---
Date of Service April 23, 2022 Admission HPI Per Admitting Provider Chief Complaint: Strokelike symptoms as per records Primary Care Provider: Elvia Rodriguez MD History obtained from patient daughter, and records. Medical history significant for seizure disorder, anxiety disorder, history of C. difficile. Recent confinement April 16-2021 for. Patient discharged to rehab facility on cefdinir and azithromycin course. This afternoon, patient noted to have right facial droop, right-sided weakness and mumbling speech at the rehab facility. No witnessed seizures. Patient has no recollection of the events. Denies chest pain, SOB. Diarrhea symptoms without abdominal pain as per daughter. Right-sided weakness improved at the ER. Admission Exam Per Admitting Provider GENERAL: Comfortable, slightly anxious, no respiratory distress SKIN: Normal color, warm HEENT: [place] palpebral conjunctivae, no ptosis, dry buccal mucosa NECK : Supple, no tenderness CHEST : CTA, no tenderness HEART : Tachycardic, no obvious murmurs ABDOMEN: Some distention, nontender EXTREMITIES : Minimal LE swelling, no LE tenderness, no other conspicuous deformities noted NEUROLOGIC : Coherent, no facial asymmetry, no other gross focality Principal Diagnosis TIA (transient ischemic attack): Seizure disorder Anxiety disorder Diarrhea Hyperglycemia Diarrhea Multinodular goiter Discharge Exam General- No acute distress Head- atraumatic Eyes- PERRL, EOMI, ENT- oropharynx clear Neck- supple, no JVD Lungs- clear to auscultation Heart- regular rhythm; no murmur Abdomen- normal bowel sounds, soft, nontender Extremities- no calf tenderness Neuro- alert, oriented x 3; PERRL, EOMI; no facial palsy; no dysarthria Skin- warm & dry Discharge Data Allergies Allergy/AdvReac Type Severity Reaction Status Date / Time No Known Allergies Allergy Verified 04/21/22 18:18 Consultations 04/21/22 19:39 ED Decision to Admit Stat 04/21/22 22:34 Consult Neurology Routine Ordered Studies 04/21/22 17:41 CT angio head w con Stat CT angio neck with con Stat CT head/brain wo con Stat 04/23/22 11:42 CT head/brain wo con Routine CT head/brain wo con CLINICAL HISTORY: 76 years-old Female with f/u stroke like symptom. Acute strokelike symptoms TECHNIQUE: Multiple axial CT images of the head were obtained without contrast. A dose lowering technique was utilized adhering to the principles of ALARA. CT DOSE: 614.27 mGy.cm COMPARISON: Head CT 04/21/2022 FINDINGS: No acute intracranial hemorrhage, midline shift, intra-axial mass, hydrocephalus, territorial ischemia or abnormal extra-axial collection. Mild involutional changes. White matter hypodensities suggest chronic microvascular ischemic disease. Unchanged extra-axial calcifications adjacent to the right frontal lobe on image 24 measuring 10 mm. The calvarium is intact. Prior bilateral lens replacement. The paranasal sinuses, mastoid air cells, and middle ear cavities are clear. IMPRESSION: No acute intracranial abnormality. ACT 112: Negative or not required by law. The above report was generated using voice recognition software. It may contain grammatical, syntax or spelling errors. Electronically signed by: Sulaiman Torres M.D. 04/23/2022 12:23 PM Dictated:04/23/22 1220 Transcribed: 04/23/[address] angio neck with con, CT angio head w con, CT head/brain wo con CLINICAL HISTORY: Stroke Like Symptoms , left facial droop and left upper extremity weakness. No history of stroke, history of seizure disorder. TECHNIQUE: Contiguous axial CT images of the head were acquired from the base of the skull to the vertex without intravenous contrast administration. CT angiography of the head and neck was performed following intravenous administration of iodinated contrast. Coronal and sagittal MIPS were obtained from the axial data set and were submitted for review. Automated dose lowering techniques and/or adjustment according to patient size were utilized for this examination. All measurements were calculated based on NASCET criteria. CT DOSE: 1083.46 mGy.cm Comparison: Comparison is made to CT head 03/22/2021 FINDINGS: CT head: There is no acute intracranial hemorrhage or evidence of acute territorial infarction. No shift of the midline structures, mass effect, or extra-axial abnormalities are shown. Heterogeneous thyroid with multiple nodules are seen, with massively enlarged left lobe. CTA Neck: The left common carotid artery shares common origin with the innominate artery. There is no significant atherosclerotic plaque in the aortic arch or the origins of the innominate, left common carotid, and left subclavian arteries. The common carotid, external carotid, cervical segments of the internal carotid arteries, and the cervical segments of the vertebral arteries are patent without hemodynamically significant stenosis. The left vertebral artery is dominant. CTA Head: The anterior and posterior cerebral circulations are patent. No hemodynamically significant stenosis, aneurysm, dissection, or arteriovenous malformation is shown. origin of the left posterior cerebral artery is seen. IMPRESSION: 1. No acute intracranial hemorrhage, evidence of acute territorial infarction, or other acute intracranial disease process. 2. No occlusion, hemodynamically significant stenosis, aneurysm, dissection, or arteriovenous malformation in the major intracranial arteries. 3. No occlusion, hemodynamically significant stenosis, or dissection in the major cervical arteries. 4. Enlarged heterogeneous thyroid with multiple nodules. If not previously evaluated, nonemergent thyroid ultrasound can be performed. Assessment of stenosis of the internal carotid arteries is based on NASCET criteria. ACT 112: Negative or not required by law. Electronically signed by: Varinder Meyer M.D. 04/21/2022 6:16 PM Dictated:04/21/221805 Transcribed: 04/21/221805 CT angio neck with con, CT angio head w con, CT head/brain wo con CLINICAL HISTORY: Stroke Like Symptoms , left facial droop and left upper extremity weakness. No history of stroke, history of seizure disorder. TECHNIQUE: Contiguous axial CT images of the head were acquired from the base of the skull to the vertex without intravenous contrast administration. CT angiography of the head and neck was performed following intravenous administration of iodinated contrast. Coronal and sagittal MIPS were obtained from the axial data set and were submitted for review. Automated dose lowering techniques and/or adjustment according to patient size were utilized for this examination. All measurements were calculated based on NASCET criteria. CT DOSE: 1083.46 mGy.cm Comparison: Comparison is made to CT head 03/22/2021 FINDINGS: CT head: There is no acute intracranial hemorrhage or evidence of acute territorial infarction. No shift of the midline structures, mass effect, or extra-axial abnormalities are shown. Heterogeneous thyroid with multiple nodules are seen, with massively enlarged left lobe. CTA Neck: The left common carotid artery shares common origin with the innominate artery. There is no significant atherosclerotic plaque in the aortic arch or the origins of the innominate, left common carotid, and left subclavian arteries. The common carotid, external carotid, cervical segments of the internal carotid arteries, and the cervical segments of the vertebral arteries are patent without hemodynamically significant stenosis. The left vertebral artery is dominant. CTA Head: The anterior and posterior cerebral circulations are patent. No he modynamically significant stenosis, aneurysm, dissection, or arteriovenous malformation is shown. origin of the left posterior cerebral artery is seen. IMPRESSION: 1. No acute intracranial hemorrhage, evidence of acute territorial infarction, or other acute intracranial disease process. 2. No occlusion, hemodynamically significant stenosis, aneurysm, dissection, or arteriovenous malformation in the major intracranial arteries. 3. No occlusion, hemodynamically significant stenosis, or dissection in the major cervical arteries. 4. Enlarged heterogeneous thyroid with multiple nodules. If not previously evaluated, nonemergent thyroid ultrasound can be performed. Assessment of stenosis of the internal carotid arteries is based on NASCET criteria. ACT 112: Negative or not required by law. Electronically signed by: Varinder Meyer M.D. 04/21/2022 6:16 PM Dictated:04/21/221805 Transcribed: 04/21/221805 CT angio neck with con, CT angio head w con, CT head/brain wo con CLINICAL HISTORY: Stroke Like Symptoms , left facial droop and left upper extremity weakness. No history of stroke, history of seizure disorder. TECHNIQUE: Contiguous axial CT images of the head were acquired from the base of the skull to the vertex without intravenous contrast administration. CT angiography of the head and neck was performed following intravenous administration of iodinated contrast. Coronal and sagittal MIPS were obtained from the axial data set and were submitted for review. Automated dose lowering techniques and/or adjustment according to patient size were utilized for this examination. All measurements were calculated based on NASCET criteria. CT DOSE: 1083.46 mGy.cm Comparison: Comparison is made to CT head 03/22/2021 FINDINGS: CT head: There is no acute intracranial hemorrhage or evidence of acute territorial infarction. No shift of the midline structures, mass effect, or extra-axial abnormalities are shown. Heterogeneous thyroid with multiple nodules are seen, with massively enlarged left lobe. CTA Neck: The left common carotid artery shares common origin with the innominate artery. There is no significant atherosclerotic plaque in the aortic arch or the origins of the innominate, left common carotid, and left subclavian arteries. The common carotid, external carotid, cervical segments of the internal carotid arteries, and the cervical segments of the vertebral arteries are patent without hemodynamically significant stenosis. The left vertebral artery is dominant. CTA Head: The anterior and posterior cerebral circulations are patent. No hemodynamically significant stenosis, aneurysm, dissection, or arteriovenous malformation is shown. origin of the left posterior cerebral artery is seen. IMPRESSION: 1. No acute intracranial hemorrhage, evidence of acute territorial infarction, or other acute intracranial disease process. 2. No occlusion, hemodynamically significant stenosis, aneurysm, dissection, or arteriovenous malformation in the major intracranial arteries. 3. No occlusion, hemodynamically significant stenosis, or dissection in the major cervical arteries. 4. Enlarged heterogeneous thyroid with multiple nodules. If not previously evaluated, nonemergent thyroid ultrasound can be performed. Assessment of stenosis of the internal carotid arteries is based on NASCET criteria. ACT 112: Negative or not required by law. Electronically signed by: Varinder Meyer M.D. 04/21/2022 6:16 PM Dictated:04/21/221805 Transcribed: 04/21/221805 XR chest 1V portable CLINICAL HISTORY: Stroke Like Symptoms TECHNIQUE: Single frontal radiograph of the chest was obtained. Comparison: Comparison is made to chest radiograph 04/16/2022 FINDINGS: No lines and tubes are seen. Cardiomegaly is noted. The lungs are clear. No evidence of pleural effusion or pneumothorax. IMPRESSION: Stable cardiomegaly. No acute abnormalities are seen. ACT 112: Negative or not required by law. Electronically signed by: Varinder Meyer M.D. 04/21/2022 6:55 PM Dictated:04/21/221854 Transcribed: 04/21/221854 Hospital Course (1) TIA (transient ischemic attack): Present on admission with stroke like symptoms with dysarthria, right facial droop and right-sided weakness. Stroke alert prior to arrival ER provider discussed the case with Miryam romero stroke-patient did not meet criteria for tPA since symptoms improved CTA head/neck showed no acute intracranial hemorrhage, evidence of acute territorial infarction, or other acute intracranial disease process. CT head showed no acute intracranial abnormality Echo showed normal LV wall motion. Left ventricle systolic function is normal with ejection fraction 60 to 65% Unable to get the MRI head due to claustrophobia I offered to give her additional Ativan to calm her down to do the MRI but she refused to go CT head repeat showed no acute intracranial abnormality. Received aspirin in the ER Neuro on board recommend dual antiplatelet therapy with aspirin and Plavix for 3 weeks, then aspirin monotherapy. Neuro recommended the patient have an MRI of the brain as an outpatient if possible (with open MRI) Will need to arrange for Zio patch as an outpatient Statin therapy with goal LDL of less than 70. Continue PT/OT Clinically stable to transfer back to [facility] for rehab Follow up with neurology in 4 to 6 weeks Seizure disorder Carbamazepine level mildly elevate at 13.7 on admission Repeat carbamazepine level this morning 5.8 Continue Carbamazepine Continue seizure precaution Anxiety disorder Stable Diarrhea Stool for Cdiff for negative Hyperglycemia Hgba1C 5.3 Glucose stable Diarrhea Recent antibiotic therapy need to rule out C. difficile stool for C. difficile negative We will add loperamide as needed Monitor electrolytes Multinodular goiter CT showed enlarged heterogeneous thyroid with multiple nodules. If not previously evaluated, nonemergent thyroid ultrasound can be performed outpatient Recent TSH normal DVT prophylaxis. Lovenox subcu Patient daughter requesting updates from providers. Ms. Angeles Neely, contact #[phone]. Total Time Total Time Spent Total Time Spent (In Minutes): 45 minutes Discharge Plan Discharge Items Patient Disposition: Transfer Inpatient Rehab Fac Reason For Visit: TIA Discharge Diagnosis: TIA (transient ischemic attack): Seizure disorder Anxiety disorder Diarrhea Hyperglycemia Diarrhea Multinodular goiter Activity: Resume your previous activity Non-emergency contact: Primary Care Provider and Neurologist Call non-emergency contact if: you have any medication questions and your symptoms worsen Follow-up/Referrals: Elvia Rodriguez MD [Primary Care Provider] - Diet: Heart Healthy Addtl Attending Provider Instructions: Follow up with your primary care provider once discharge from [facility] Follow up with [facility] neurology Dr. Singletary or her colleague in 4 to 6 weeks Your provider need to arrange for a Zio Patch as outpatient to monitor your heart rhythm Continue dual antiplatelet therapy with aspirin and plavix for 21 days, then after 21 days continue aspirin alone You will need to have an MRI of the brain as an outpatient since you were not able to do it due to claustrophobia. ( you might be able to feel less anxious with 611 open MRI) CT showed multiple thyroid nodules, if not previously evaluated, you will need to arrange for a thyroid ultrasound as an outpatient ( your provider will order it) Continue physical and occupational therapy Fall and seizure precaution Monitor for any abnormal bleeding while on Plavix and Aspirin; and avoid any additional NSAID (such as motrin, aleve, naproxen, advil, ibuprofen, meloxicam....) due to increase risk of bleeding Seek medical attention if you develop any stroke like symptoms Pending Studies at Discharge: No Stand-Alone Forms: My [facility] Skilled Items Patient informed of condition?: Yes DNR: No Discharge Level of Care: Acute rehab Communicable Disease: No Discharge Prognosis: Stable Lines: None Urinary Catheter: No Medications and DC Order Prescriptions: New clopidogrel 75 mg Tablet 75 mg PO QAM 30 Days Qty: 30 RF: 0 atorvastatin 40 mg Tablet 40 mg PO QAM 30 Days Qty: 30 RF: 0 aspirin 81 mg Tablet,Delayed Release (Dr/Ec) 81 mg PO QAM 30 Days Qty: 30 RF: 0 Continued carbamazepine [Tegretol XR] 400 mg Tablet Extended Release 12 Hr 400 mg PO BID RF: 0 Calcium 600 + D(3) 600 mg calcium- 200 unit Capsule 1 cap PO BID RF: 0 glucosamine-chondroitin [Osteo Bi-Flex] 250-200 mg Tablet 1 tab PO BID RF: 0 Centrum Silver Women 8 mg iron-400 mcg-300 mcg Tablet 1 tab PO QAM RF: 0 turmeric 400 mg Capsule 400 mg PO QAM RF: 0 ascorbic acid (vitamin C) [Vitamin C] 500 mg Tablet 500 mg PO HS RF: 0 vitamin B complex-folic acid 2,000 mcg Capsule 1 cap PO DAILY RF: 0 Discontinued meloxicam 7.5 mg tablet 7.5 mg PO DAILY RF: 0 azithromycin 500 mg tablet 500 mg PO DAILY Qty: 4 RF: 0 cefdinir 300 mg capsule 300 mg PO BID 4 Days Qty: 8 RF: 0 Discharge Orders: Discharge Order (Routine); Ordered 04/23/22 Ordered By: Beverly Tuttle Admission Data Admit Date/Time: 04/23/22 11:41 Attending Provider: Beverly Tuttle Admit Provider: Abran Bro Primary Care Provider: Elvia Rodriguez Other Providers: Abran Bro ; Thu Bright ; Charlie Saleh ; Thu Singletary ; Gilberto Tran ; Jenny Nicole ; [facility]
--- NOTE | 2022-04-23 22:44 | Electrocardiogram Report ---
Test Reason : Blood Pressure : / mmHG Vent. Rate : 117 BPM Atrial Rate : 117 BPM P-R Int : 156 ms QRS Dur : 098 ms QT Int : 336 ms P-R-T Axes : 037 027 044 degrees QTc Int : 468 ms Poor data quality, interpretation may be adversely affected Sinus tachycardia Incomplete right bundle branch block Borderline ECG When compared with ECG of 18-APR-2022 05:27, Incomplete right bundle branch block is now Present Confirmed by Lucian Ibarra ([id number]) on 04/23/2022 10:44:14 PM Referred By: REFERRED SELF Confirmed By:Lucian Ibarra
== END 2022-04-23 15:50 | DRG 69 ==
LOC: ED 17:40 → 2N 17:40

== ENCOUNTER 2022-04-24 15:52 | Inpatient (IN) ==
[2022-04-24] MEDS ORDERED: OPTIRAY 320 125ml IV ONE (15:59)
--- NOTE | 2022-04-24 16:10 | CT Scan Report ---
CT head/brain wo con CLINICAL HISTORY: Stroke Like Symptoms COMPARISON STUDY: No previous studies for comparison. CT DOSE: TECHNIQUE: Standard CT of the Brain was performed without IV contrast. A dose lowering technique was utilized adhering to the principles of ALARA. FINDINGS: Extraaxial space: There is no evidence for subdural hematoma. There are no extra-axial fluid collecti ons. Ventricles and cisterns: The ventricles are normal in size and configuration. There is no evidence fo r midline shift or mass effect. Parenchyma: There is no subarachnoid or intraparenchymal hemorrhage. There is no evidence for an acut e infarct or cerebral edema. There is homogeneous attenuation of the brain parenchyma. There are no g ross mass lesions. Osseous structures: There is no evidence for an acute fracture. The visualized paranasal sinuses are clear. The mastoid air cells are clear bilaterally. Soft tissues: There is no evidence for focal soft tissue swelling. IMPRESSION: 1. No acute intracerebral pathology. ACT 112: Negative or not required by law. Electronically signed by: Marky Aguila M.D. 04/24/2022 4:08 PM
--- NOTE | 2022-04-24 16:12 | Emergency Department Note ---
Impression & Plan Weakness, TIA (transient ischemic attack) ED Provider Note NAME: RICKY ANDREA AGE: 76 SEX: F : 1945 ARRIVES VIA: Ambulance INFORMANT: Patient ED PROVIDER(S): Efren Smith DO CHIEF COMPLAINT: Right-sided facial droop and slurred speech HPI: Patient is a 76-year-old female who presents to the ER following waking up from a nap around 240. She had slurred speech and right-sided facial droop. This gradually improved. She was seen and evaluated here a week ago for similar symptoms. She denies any headache or change in vision. No chest pain or s hortness of breath. No nausea, vomiting, or diarrhea. No dysuria, urgency, or frequency. No other exacerbating or remitting factors. ROS: See above HPI for pertinent positives & negatives. A total of 10 systems reviewed and were otherwise negative. PAST MEDICAL HISTORY:See Below PAST SURGICAL HISTORY:See Below FAMILY HISTORY:See Below SOCIAL HISTORY:See Below HOME MEDICATIONS:See Below ALLERGIES:See Below VITALS:See Below PHYSICAL EXAMINATION: GENERAL: Sitting up in bed, alert, well appearing, well nourished, no distress, non-toxic EYE EXAM: normal conjunctiva. PERRL and EOM's intact. OROPHARYNX: no exudate, no erythema, lips, buccal mucosa, and tongue normal and mucous membranes are moist LUNGS: Clear to auscultation. Normal chest wall mechanics HEART: no murmurs, S1 normal and S2 normal ABDOMEN: abdomen soft, non-tender, normo-active bowel sounds, no masses, no rebound or guarding. UPPER EXTREMITIES: upper extremities are grossly normal. LOWER EXTREMITIES: No pitting edema. NEURO EXAM: Normal sensorium, cranial nerves II-XII intact, normal speech, no weakness of arms, no weakness of legs. No drift. Finger to nose intact. Gross sensation intact. MEDICAL DECISION MAKING: Patient is a 76-year-old female who presents ER for the boasting complaint. IV was established blood work was obtained. Labs show mild leukocytosis of 11,000. No significant anemia. INR was unremarkable. BMP on LFTs bilirubin was unremarkable. UA was clean. COVID was negative. CT as well as angios the head and neck initially showed a P1 segment/occlusion as there is difficulty emerging the charge for the first 2 hours of presentation. We were eventually able to get this resolved and had radiology reread/compare and there is no change per Dr. Aguila. Patient's symptoms have nearly completely resolved. Discussed with the hospitalist for further evaluation. Triage Nursing notes reviewed. Limited review of prior medical records performed Vital Signs: reviewed and remarkable for no significant abnormalities Differential diagnosis: Differential Diagnosis includes but is not limited to ischemic Stroke, he morrhagic stroke, bells palsy, mass, neoplasm, migraine headache, seizure, subarachnoid hemorrhage, TIA, and transient global amnesia. ER treatment provided: See below Diagnostics interpreted by me: ECG: Sinus tachycardia rate of 103 Normal axis No PVCs Incomplete right bundle Cardiac Monitoring: An order was placed for continuous cardiac monitoring. The monitor shows a rate of 101 with sinus rhythm. Laboratory studies: As stated above and show below. Imaging studies: CT angio of the head and neck were unremarkable Chest x-ray was unremarkable Consultation(s): Discussed with the hospitalist for further evaluation Procedures: none Critical Care: None Past Med/Surg History Medical History Arthritis Diverticular disease Glaucoma b/l Hiatal hernia Hx of basal cell carcinoma s/p excision Multinodular goiter Osteoporosis Seizure Hx epilepsy- no seizure x years Surgical History History of elbow surgery RIGHT Hx laparoscopic cholecystectomy (08/06/19) Laparoscopic Cholecystectomy Dr. Ty 08/06/19 Hx of basal cell carcinoma excision Family History Daughter Breast cancer Social History Smoking Status: Never smoker Second Hand Exposure: No; Hx Alcohol Use: Yes Alcohol type: wine Hx Substance Use: No Preferred Language: Kinyarwanda Communication Ability: Effective Foreign Agent Required: No Beliefs That Will Affect Care: None marital status: Current Living Situation: Alone Current Living Situation Comment: Lives alone in apartment in custodial community in [employer] current occupational status: retired How many Children do You have: 1 Feels Safe at Home: Yes Assistive Devices: Walker Allergies Allergies Allergy/AdvReac Type Severity Reaction Status Date / Time clams Allergy Unknown ON MED LIST Verified 04/24/22 17:10 Home Meds Home Medications Medication Instructions Recorded Confirmed calcium carbonate 600 mg-vitamin 1 cap PO BID 07/08/19 04/21/22 D3 5 mcg (200 unit) capsule (Calcium 600 + D(3)) carbamazepine 400 mg 400 mg PO BID 07/08/19 04/21/22 tablet,extended release,12 hr (Tegretol XR) glucosamine-chondroitin 250 mg-200 1 tab PO BID 07/24/19 04/21/22 mg tablet (Osteo Bi-Flex) multivit with 1 tab PO QAM 07/24/19 04/21/22 rvvbrhii-nafw-[place]-lutein 8 mg iron-400 mcg-300 mcg tablet (Centrum Silver Women) turmeric 400 mg capsule 400 mg PO QAM 07/24/19 04/21/22 ascorbic acid (vitamin C) 500 mg 500 mg PO HS 08/06/19 04/21/22 tablet (Vitamin C) vitamin B complex-folic acid 2,000 1 cap PO DAILY 04/16/22 04/21/22 mcg capsule acetaminophen 325 mg tablet 650 mg PO Q4H PRN 04/24/22 04/24/22 (Tylenol) ascorbic acid (vitamin C) 500 mg 500 mg PO HS 04/24/22 04/24/22 tablet (Vitamin C) aspirin 81 mg tablet,delayed 81 mg PO DAILY 04/24/22 04/24/22 release atorvastatin 40 mg tablet 40 mg PO DAILY 04/24/22 04/24/22 calcium carbonate 500 mg-vitamin 1 tab PO BID 04/24/22 04/24/22 D3 5 mcg (200 unit) tablet (Calcium 500 + D) carbamazepine 400 mg 400 mg PO Q12H 04/24/22 04/24/22 tablet,extended release,12 hr clopidogrel 75 mg tablet (Plavix) 75 mg PO DAILY 04/24/22 04/24/22 docusate sodium 100 mg capsule 100 mg PO BID 04/24/22 04/24/22 enoxaparin 40 mg/0.4 mL 40 mg SUBCUT QPM 04/24/22 04/24/22 subcutaneous syringe (Lovenox) glucosamine-chondroitin 250 mg-200 1 tab PO BID 04/24/22 04/24/22 mg tablet (Osteo Bi-Flex) magnesium hydroxide 400 mg/5 mL 30 ml PO DAILY PRN 04/24/22 04/24/22 oral suspension (Milk of Magnesia) multivitamin with minerals 1 tab PO DAILY 04/24/22 04/24/22 olopatadine 0.1 % eye drops 1 drp OPB HS 04/24/22 04/24/22 polyethylene glycol 3350 17 17 g PO QDL PRN 04/24/22 04/24/22 gram/dose oral powder (Miralax) sennosides 8.6 mg-docusate sodium 1 tab PO QDL PRN 04/24/22 04/24/22 50 mg tablet (Senokot-S) vitamin B complex 1 tab PO DAILY 04/24/22 04/24/22 Previous Rx's Medication Instructions Recorded aspirin 81 mg tablet,delayed 81 mg PO QAM 30 Days #30 tab 04/23/22 release atorvastatin 40 mg tablet 40 mg PO QAM 30 Days #30 tab 04/23/22 clopidogrel 75 mg tablet 75 mg PO QAM 30 Days #30 tab 04/23/22 Results & Data (ED) Vital Signs Vital Signs - 24 hr 04/24/22 16:07 04/24/22 16:10 04/24/22 16:15 Temperature 36.6 C Temperature Source Oral Pulse Rate 104 H 105 H 100 H Pulse Rate from SpO2 Sensor 101 H 105 H Respiratory Rate 17 20 20 Respiratory Effort / Characteristics Non-Labored Blood Pressure 165/89 H Blood Pressure Mean 114 Pulse Oximetry 94 95 94 Oxygen Delivery Method Room Air Sepsis Recent Fever Within 48 Hours No Sepsis New/Unexplained Change in Mental Status N/A Sepsis Action Taken by Nursing No Action Required 04/24/22 16:20 04/24/22 16:24 04/24/22 16:29 Temperature Temperature Source Pulse Rate 102 H 99 H Pulse Rate from SpO2 Sensor 102 H 100 H Respiratory Rate 27 H 19 Respiratory Effort / Characteristics Blood Pressure 137/79 Blood Pressure Mean 98 Pulse Oximetry 95 95 94 Oxygen Delivery Method Room Air Sepsis Recent Fever Within 48 Hours Sepsis New/Unexplained Change in Mental Status Sepsis Action Taken by Nursing 04/24/22 16:30 04/24/22 16:40 04/24/22 16:45 Temperature Temperature Source Pulse Rate 100 H 97 H 96 H Pulse Rate from SpO2 Sensor 100 H 99 H 96 H Respiratory Rate 15 20 18 Respiratory Effort / Characteristics Blood Pressure 151/87 H 151/87 H Blood Pressure Mean 108 108 Pulse Oximetry 94 94 94 Oxygen Delivery Method Sepsis Recent Fever Within 48 Hours Sepsis New/Unexplained Change in Mental Status Sepsis Action Taken by Nursing 04/24/22 16:50 04/24/22 17:00 04/24/22 17:10 Temperature Temperature Source Pulse Rate 96 H 96 H 95 H Pulse Rate from SpO2 Sensor 96 H 96 H 95 H Respiratory Rate 16 20 20 Respiratory Effort / Characteristics Blood Pressure 147/85 H Blood Pressure Mean 105 Pulse Oximetry 94 94 94 Oxygen Delivery Method Sepsis Recent Fever Within 48 Hours Sepsis New/Unexplained Change in Mental Status Sepsis Action Taken by Nursing 04/24/22 17:15 04/24/22 17:20 04/24/22 17:30 Temperature Temperature Source Pulse Rate 94 H 97 H 95 H Pulse Rate from SpO2 Sensor 95 H 97 H 95 H Respiratory Rate 18 21 19 Respiratory Effort / Characteristics Blood Pressure 147/86 H 136/91 Blood Pressure Mean 106 106 Pulse Oximetry 94 95 94 Oxygen Delivery Method Sepsis Recent Fever Within 48 Hours Sepsis New/Unexplained Change in Mental Status Sepsis Action Taken by Nursing 04/24/22 17:40 04/24/22 17:45 04/24/22 17:50 Temperature Temperature Source Pulse Rate 96 H 96 H 95 H Pulse Rate from SpO2 Sensor 97 H 96 H 95 H Respiratory Rate 24 20 17 Respiratory Effort / Characteristics Blood Pressure 124/79 Blood Pressure Mean 94 Pulse Oximetry 93 93 94 Oxygen Delivery Method Sepsis Recent Fever Within 48 Hours Sepsis New/Unexplained Change in Mental Status Sepsis Action Taken by Nursing 04/24/22 18:00 04/24/22 18:10 04/24/22 18:15 Temperature Temperature Source Pulse Rate 100 H 97 H 94 H Pulse Rate from SpO2 Sensor 100 H 98 H 94 H Respiratory Rate 20 18 16 Respiratory Effort / Characteristics Blood Pressure 130/79 130/83 Blood Pressure Mean 96 98 Pulse Oximetry 94 93 93 Oxygen Delivery Method Sepsis Recent Fever Within 48 Hours Sepsis New/Unexplained Change in Mental Status Sepsis Action Taken by Nursing 04/24/22 18:20 04/24/22 18:30 04/24/22 18:40 Temperature Temperature Source Pulse Rate 96 H 113 H 93 H Pulse Rate from SpO2 Sensor 94 H 113 H 93 H Respiratory Rate 19 27 H 17 Respiratory Effort / Characteristics Blood Pressure 154/89 H Blood Pressure Mean 110 Pulse Oximetry 94 93 94 Oxygen Delivery Method Sepsis Recent Fever Within 48 Hours Sepsis New/Unexplained Change in Mental Status Sepsis Action Taken by Nursing 04/24/22 18:45 04/24/22 18:52 Temperature Temperature Source Pulse Rate 98 H Pulse Rate from SpO2 Sensor 97 H Respiratory Rate 20 Respiratory Effort / Characteristics Blood Pressure 146/82 H Blood Pressure Mean 103 Pulse Oximetry 94 Oxygen Delivery Method Room Air Sepsis Recent Fever Within 48 Hours Sepsis New/Unexplained Change in Mental Status Sepsis Action Taken by Nursing Laboratory Data Result diagrams: 04/24/22 16:12 04/24/22 16:12 Lab Results 04/24/22 04/24/22 04/24/22 Range/Units 16:12 16:12 16:12 WBC 11.30 H (4.8-10.8) K/uL RBC 3.89 L (4.2-5.4) M/uL Hgb 12.4 (12.0-16.0) g/dL POC Hgb (12.0-16.0) g/dl Hct 36.5 L (37-47) % POC Hct (37-47) % MCV 93.8 (80-100) fL MCH 31.9 (25-34) pg MCHC 34.0 (32-36) g/dL RDW Std Deviation 43.6 (36.4-46.3) fL RDW Coeff of Bhavesh 12.7 (11.5-14.5) % Plt Count 224 (130-400) K/uL MPV 8.9 (7.4-10.4) fL Immature Gran % (Auto) 0.4 % Neut % (Auto) 70.7 % Lymph % (Auto) 18.6 % Gooding % (Auto) 9.5 % Eos % (Auto) 0.7 % Baso % (Auto) 0.1 % Neut # (Auto) 8.00 H (1.4-6.5) K/uL Lymph # (Auto) 2.10 (1.2-3.4) K/uL Gooding # (Auto) 1.07 H (0.11-0.59) K/uL Eos # (Auto) 0.08 (0-0.5) K/uL Baso # (Auto) 0.01 (0-0.2) K/uL Immature Gran # (Auto) 0.04 H (0.00-0.02) K/uL PT 10.7 (9.0-12.0) Seconds INR 1.0 (0.9-1.1) APTT 25.6 (21.0-31.0) Seconds PTT Ratio 0.9 POC Sodium (135-144) mmol/L Sodium 137 (136-145) mmol/L POC Potassium (3.3-5.0) mmol/L Potassium 3.6 (3.5-5.1) mmol/L POC Chloride (101-112) mmol/L Chloride 105 (98-107) mmol/L Carbon Dioxide 24 (21-32) mmol/L POC Total CO2 (24-31) mmol/L Anion Gap 8 (3-11) POC Anion Gap (16-25) mmol/L POC BUN (7-18) mg/dl BUN 13 (6-23) mg/dl Creatinine 0.49 L (0.6-1.2) mg/dl POC Creatinine (0.6-1.3) mg/dl Est Cr Clr Drug Dosing 102.5 ml/min Est GFR ( Amer) 111.2 ml/min Est GFR (Non-Af Amer) 96.0 ml/min BUN/Creatinine Ratio 26.5 H (10-20) Glucose 107 H (70-99(Fasting)) mg/dl POC Glucose (other) (70-99) mg/dl Calcium 8.6 (8.5-10.1) mg/dl POC Ioniz Calcium Austen (1.12-1.32) mmol/l Magnesium 1.9 (1.7-2.4) mg/dl Total Bilirubin 0.3 (0.2-1.0) mg/dl AST 19 (13-39) U/L ALT 23 (7-52) U/L Alkaline Phosphatase 83 (34-104) U/L Troponin I High Sens 6.6 (0-14) pg/ml Total Protein 5.2 L (6.0-8.3) gm/dl Albumin 3.3 L (3.4-5.0) gm/dl Globulin 1.9 L (2.5-4.0) gm/dl Albumin/Globulin Ratio 1.7 (0.9-2) Urine Color Urine Appearance (Clear) Urine pH (4.5-7.5) Ur Specific Gleason (1.000-1.030) Urine Protein (Negative) Urine Glucose (UA) (Negative) Urine Ketones (Negative) Urine Blood (Negative) Urine Nitrite (Negative) Urine Bilirubin (Negative) Urine Urobilinogen (Negative) Ur Leukocyte Esterase (Negative) SARS-CoV-2, RNA, NAAT (NEGATIVE) 04/24/22 04/24/22 04/24/22 Range/Units 16:18 17:24 17:40 WBC (4.8-10.8) K/uL RBC (4.2-5.4) M/uL Hgb (12.0-16.0) g/dL POC Hgb 11.9 L (12.0-16.0) g/dl Hct (37-47) % POC Hct 35 L (37-47) % MCV (80-100) fL MCH (25-34) pg MCHC (32-36) g/dL RDW Std Deviation (36.4-46.3) fL RDW Coeff of Bhavesh (11.5-14.5) % Plt Count (130-400) K/uL MPV (7.4-10.4) fL Immature Gran % (Auto) % Neut % (Auto) % Lymph % (Auto) % Gooding % (Auto) % Eos % (Auto) % Baso % (Auto) % Neut # (Auto) (1.4-6.5) K/uL Lymph # (Auto) (1.2-3.4) K/uL Gooding # (Auto) (0.11-0.59) K/uL Eos # (Auto) (0-0.5) K/uL Baso # (Auto) (0-0.2) K/uL Immature Gran # (Auto) (0.00-0.02) K/uL PT (9.0-12.0) Seconds INR (0.9-1.1) APTT (21.0-31.0) Seconds PTT Ratio POC Sodium 136 (135-144) mmol/L Sodium (136-145) mmol/L POC Potassium 3.5 (3.3-5.0) mmol/L Potassium (3.5-5.1) mmol/L POC Chloride 103 (101-112) mmol/L Chloride (98-107) mmol/L Carbon Dioxide (21-32) mmol/L POC Total CO2 24 (24-31) mmol/L Anion Gap (3-11) POC Anion Gap 13.0 L (16-25) mmol/L POC BUN 11 (7-18) mg/dl BUN (6-23) mg/dl Creatinine (0.6-1.2) mg/dl POC Creatinine 0.5 L (0.6-1.3) mg/dl Est Cr Clr Drug Dosing ml/min Est GFR ( Amer) ml/min Est GFR (Non-Af Amer) ml/min BUN/Creatinine Ratio (10-20) Glucose (70-99(Fasting)) mg/dl POC Glucose (other) 106 H (70-99) mg/dl Calcium (8.5-10.1) mg/dl POC Ioniz Calcium Austen 1.17 (1.12-1.32) mmol/l Magnesium (1.7-2.4) mg/dl Total Bilirubin (0.2-1.0) mg/dl AST (13-39) U/L ALT (7-52) U/L Alkaline Phosphatase (34-104) U/L Troponin I High Sens (0-14) pg/ml Total Protein (6.0-8.3) gm/dl Albumin (3.4-5.0) gm/dl Globulin (2.5-4.0) gm/dl Albumin/Globulin Ratio (0.9-2) Urine Color Yellow Urine Appearance Clear (Clear) Urine pH 7.5 (4.5-7.5) Ur Specific Gleason > 1.045 H (1.000-1.030) Urine Protein Negative (Negative) Urine Glucose (UA) Negative (Negative) Urine Ketones 1+ H (Negative) Urine Blood Negative (Negative) Urine Nitrite Negative (Negative) Urine Bilirubin Negative (Negative) Urine Urobilinogen Negative (Negative) Ur Leukocyte Esterase Negative (Negative) SARS-CoV-2, RNA, NAAT NEGATIVE (NEGATIVE) Administered Medications Discontinued Medications Ioversol (Optiray 320 125ml) 119 ml IV ONCE ONE Stop: 04/24/22 16:00 Last Admin: 04/24/22 15:59 Dose: 119 ml Documented by: [id number] Imaging Data Radiologist's Impression: Chest X-Ray 04/24/22 15:44 XR chest 1V portable CLINICAL HISTORY: Stroke Like Symptoms. COMPARISON STUDY: No previous studies for comparison. TECHNIQUE: 1 view of the chest FINDINGS: Single frontal view of the chest demonstrates the heart to be mildly enlarged. There is a very large hiatal hernia posterior to the heart. The lungs are clear of alveolar opacities. There is no evidence for pleural effusion. There is no evidence for vascular congestion. There is no acute osseous pathology. IMPRESSION: 1. No acute cardiopulmonary disease. 2. Cardiomegaly and very large hiatal hernia. ACT 112: Negative or not required by law. Electronically signed by: Marky Aguila M.D. 04/24/2022 4:[address] 04/24/22 15:44 CT head/brain wo con CLINICAL HISTORY: Stroke Like Symptoms COMPARISON STUDY: No previous studies for comparison. CT DOSE: TECHNIQUE: Standard CT of the Brain was performed without IV contrast. A dose lowering technique was utilized adhering to the principles of ALARA. FINDINGS: Extraaxial space: There is no evidence for subdural hematoma. There are no ext ra-axial fluid collections. Ventricles and cisterns: The ventricles are normal in size and configuration. There is no evidence for midline shift or mass effect. Parenchyma: There is no subarachnoid or intraparenchymal hemorrhage. There is no evidence for an acute infarct or cerebral edema. There is homogeneous attenuation of the brain parenchyma. There are no gross mass lesions. Osseous structures: There is no evidence for an acute fracture. The visualized paranasal sinuses are clear. The mastoid air cells are clear bilaterally. Soft tissues: There is no evidence for focal soft tissue swelling. IMPRESSION: 1. No acute intracerebral pathology. ACT 112: Negative or not required by law. Electronically signed by: Marky Aguila M.D. 04/24/2022 4:08 PM Head CTA 04/24/22 15:44 CT angio head w con CLINICAL HISTORY: Stroke Like Symptoms COMPARISON STUDY: CT brain without contrast from 04/24/2022 CT DOSE: 1052.66 mGy.cm TECHNIQUE: CT Angio of the brain was performed.followed by image post p rocessing with coronal, and sagittal MIP reformats. Contrast Volume: Optiray 320, 119 ml FINDINGS: Vascular findings: There is normal enhancement within the internal carotid arteries bilaterally. On the left side, there is normal enhancement noted within the anterior and middle cerebral arteries. However, the P1 segment of the left posterior cerebral artery is absent with filling of the distal posterior segments via the posterior communicating artery on the left from the anterior circulation. On the right side, there is marked atherosclerotic disease present involving the A1 segment of the anterior cerebral artery. However, the distal branches are well opacified via the anterior communicating artery. The right middle and posterior cerebral arteries are patent. Nonvascular findings: There is homogeneous attenuation of the brain parenchyma bilaterally. There is no evidence for an acute infarct or cerebral edema. IMPRESSION: 1. 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 2. Marked atherosclerotic disease involving the A1 segment of the right anterior cerebral artery. However, there is filling of the distal branches of the anterior cerebral artery via anterior communicating artery. ACT 112: Negative or not required by law. Electronically signed by: Marky Aguila M.D. 04/24/2022 4:19 PM Neck CTA 04/24/22 15:44 CT angio neck with con CLINICAL HISTORY: 76 years-old Female with Stroke Like Symptoms. Acute strokelike symptoms COMPARISON STUDY: CTA head of same day TECHNIQUE: Following the IV administration of 119 mL of Optiray, CT angiogram of the neck was performed from the aortic arch to the skull base. Images are reviewed in the axial, sagittal, and coronal planes. 3-D MIPS images are created and assessed. IV contrast was administered without complication. All measurements were calculated based on NASCET criteria. A dose lowering technique was utilized adhering to the principles of ALARA. FINDINGS: Three-vessel morphology of the thoracic aortic arch. There is patency of the innominate and imaged subclavian arteries. The common carotid arteries are patent. There is mild atherosclerotic plaque of the carotid bulbs without significant stenosis. Additional atherosclerosis of the cavernous, and clinoid segments without high-grade stenosis. Codominant and patent vertebral arteries. The basilar artery is patent. origin of the left posterior cerebral artery. No aneurysm, dissection, high-grade stenosis or arterial occlusion. No pneumothorax. Multinodular thyroid goiter with superior mediastinal extension. Rightward deviation of the airway and esophagus. Multilevel degenerative changes of the cervical spine. IMPRESSION:No aneurysm, dissection, high-grade stenosis or arterial occlusion. ACT 112: Negative or not required by law. The above report was generated using voice recognition software. It may contain grammatical, syntax or spelling errors. Electronically signed by: Sulaiman Torres M.D. 04/24/2022 4:25 PM Discharge Plan Visit Data Chief Complaint: Stroke Alert ED Provider: Efren Smith Discharge Problem: Weakness, TIA (transient ischemic attack) Patient Disposition: Admitted As Inpatient Discharge Instructions Interventions: ED Discharge Assessment Last Done: 04/24/22 18:52
--- NOTE | 2022-04-24 16:21 | CT Scan Report ---
CT angio head w con CLINICAL HISTORY: Stroke Like Symptoms COMPARISON STUDY: CT brain without contrast from 04/24/2022 CT DOSE: 1052.66 mGy.cm TECHNIQUE: CT Angio of the brain was performed.followed by image post processing with coronal, and s agittal MIP reformats. Contrast Volume: Optiray 320, 119 ml FINDINGS: Vascular findings: There is normal enhancement within the internal carotid arteries bilaterally. On the left side, there is normal enhancement noted within the anterior and middle cerebral arteries. H owever, the P1 segment of the left posterior cerebral artery is absent with filling of the distal pos terior segments via the posterior communicating artery on the left from the anterior circulation. On the right side, there is marked atherosclerotic disease present involving the A1 segment of the an terior cerebral artery. However, the distal branches are well opacified via the anterior communicatin g artery. The right middle and posterior cerebral arteries are patent. Nonvascular findings: There is homogeneous attenuation of the brain parenchyma bilaterally. There is no evidence for an acute infarct or cerebral edema. IMPRESSION: 1. 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 2. Marked atherosclerotic disease involving the A1 segment of the right anterior cerebral artery. How ever, there is filling of the distal branches of the anterior cerebral artery via anterior communicat ing artery. ACT 112: Negative or not required by law. Electronically signed by: Marky Aguila M.D. 04/24/2022 4:19 PM
--- NOTE | 2022-04-24 16:27 | CT Scan Report ---
CT angio neck with con CLINICAL HISTORY: 76 years-old Female with Stroke Like Symptoms. Acute strokelike symptoms COMPARISON STUDY: CTA head of same day TECHNIQUE: Following the IV administration of 119 mL of Optiray, CT angiogram of the neck was perform ed from the aortic arch to the skull base. Images are reviewed in the axial, sagittal, and coronal pl anes. 3-D MIPS images are created and assessed. IV contrast was administered without complication. Al l measurements were calculated based on NASCET criteria. A dose lowering technique was utilized adhe ring to the principles of ALARA. FINDINGS: Three-vessel morphology of the thoracic aortic arch. There is patency of the innominate and imaged fernandes bclavian arteries. The common carotid arteries are patent. There is mild atherosclerotic plaque of th e carotid bulbs without significant stenosis. Additional atherosclerosis of the cavernous, and clinoi d segments without high-grade stenosis. Codominant and patent vertebral arteries. The basilar artery is patent. origin of the left posterior cerebral artery. No aneurysm, dissection, high-grade st enosis or arterial occlusion. No pneumothorax. Multinodular thyroid goiter with superior mediastinal extension. Rightward deviation of the airway and esophagus. Multilevel degenerative changes of the cervical spine. IMPRESSION:No aneurysm, dissection, high-grade stenosis or arterial occlusion. ACT 112: Negative or not required by law. The above report was generated using voice recognition software. It may contain grammatical, syntax o r spelling errors. Electronically signed by: Sulaiman Torres M.D. 04/24/2022 4:25 PM
[2022-04-24 16:30] LABS: iSTAT Creatinine 0.5 mg/dl (0.6-1.3); iSTAT Hemoglobin 11.9 g/dl (12.0-16.0); iSTAT Ionized Calcium 1.17 mmol/l (1.12-1.32); iSTAT Potassium 3.5 mmol/L (3.3-5.0)
[2022-04-24 16:33] LABS: Basophils # (auto) 0.01 K/uL (0-0.2); Basophils % (auto) 0.1 %; Eosinophils # (auto) 0.08 K/uL (0-0.5); Eosinophils % (auto) 0.7 %; Hematocrit (blood only) 36.5 % (37-47); Hemoglobin 12.4 g/dL (12.0-16.0); Immature Granulocytes # (auto) 0.04 K/uL (0.00-0.02); Immature Granulocytes % (auto) 0.4 %; Lymphocytes % (auto) 18.6 %; Mean Corpuscular Hemoglobin 31.9 pg (25-34); Mean Corpuscular Volume 93.8 fL (80-100); Mean Platelet Volume 8.9 fL (7.4-10.4); Monocytes # (auto) 1.07 K/uL (0.11-0.59); Monocytes % (auto) 9.5 %; Neutrophils % (auto) 70.7 %; Platelet Count 224 K/uL (130-400); RDW Coefficient of Variation 12.7 % (11.5-14.5); RDW Standard Deviation 43.6 fL (36.4-46.3); Red Blood Count 3.89 M/uL (4.2-5.4)
--- NOTE | 2022-04-24 16:38 | XRay Report ---
XR chest 1V portable CLINICAL HISTORY: Stroke Like Symptoms. COMPARISON STUDY: No previous studies for comparison. TECHNIQUE: 1 view of the chest FINDINGS: Single frontal view of the chest demonstrates the heart to be mildly enlarged. There is a very large hiatal hernia posterior to the heart. The lungs are clear of alveolar opacities. There is no evidence for pleural effusion. There is no evidence for vascular congestion. There is no acute osseous pathol ogy. IMPRESSION: 1. No acute cardiopulmonary disease. 2. Cardiomegaly and very large hiatal hernia. ACT 112: Negative or not required by law. Electronically signed by: Maryk Aguila M.D. 04/24/2022 4:37 PM
[2022-04-24 16:50] LABS: Partial Thromboplastin Ratio 0.9; Partial Thromboplastin Time 25.6 Seconds (21.0-31.0); Prothrombin Time 10.7 Seconds (9.0-12.0)
[2022-04-24 16:56] LABS: Troponin I High Sensitivity 6.6 pg/ml (0-14)
[2022-04-24 16:57] LABS: Albumin Globulin Ratio 1.7 (0.9-2); Albumin Level 3.3 gm/dl (3.4-5.0); BUN Creatinine Ratio 26.5 (10-20); Bilirubin,Total 0.3 mg/dl (0.2-1.0); Calcium 8.6 mg/dl (8.5-10.1); Creatinine Clr Calc Pharmacy 102.5 ml/min; Est GFR (African American) 111.2 ml/min; Globulin 1.9 gm/dl (2.5-4.0); Magnesium 1.9 mg/dl (1.7-2.4); Potassium 3.6 mmol/L (3.5-5.1); Total Protein 5.2 gm/dl (6.0-8.3)
--- NOTE | 2022-04-24 17:46 | History & Physical Report ---
Date of Service April 24, 2022 Assessment & Plan (1) TIA (transient ischemic attack): (2) Seizure disorder: Plan: This is a 76yo F with a PMH of seizure disorder, recent TIA on 04/21/22 who presented from [facility] today with slurred speech and R sided facial droop. Patient with multiple recent admissions, starting with admission for generalized weakness and pneumonia (completed abx on 04/23) with discharge to [facility] and then sent back to [facility] 04/21-04/23 for TIA Neurology evaluated and patient was started on dual antiplatelet therapy for 21 days and statin Unable to tolerate MRI machine due to significant claustrophobia. Transthoracic echo technically limited so cannot rule out PFO per neurology note; consider repeat echo if continued events to better evaluate for cardioembolic cause Returned today (04/24/22) with recurrent slurred speech and L sided facial droop per [facility] RN Symptoms have since resolved CT head, CTA head/neck with unchanged findings from 04/21/22 Confirmed with [facility] that patient received aspirin, plavix and statin this morning Discussed attempting brain MRI again with pre-medication. Patient denied and stated she is willing to try outpatient MRI if an open machine Repeating 2d echo. May consider cardiology consult if felt to be a cardioembolic cause Neurology consulted PT/OT/speech consults placed Advance diet if passes dysphagia screen Seizure disorder Remote condition; no episode for over 15 years Continue carbamazepine, repeat levels in AM DVT Ppx: SQ Lovenox Code status: FULL PCP: Michael Dispo: Admitted to PCU Patient seen in collaboration with Dr. Baez. Please see addendum. History of Present Illness Primary Care Provider: [facility] This is a 76yo F with a PMH of seizure disorder, recent TIA on 04/21/22 who presented from [facility] today with slurred speech and R sided facial droop. Patient with multiple recent admissions, starting with admission for generalized weakness and pneumonia (completed abx on 04/23) with discharge to [facility]. On 04/21, patient developed slurred speech and facial droop and was readmitted to [facility] for TIA. Discharged on dual antiplatelet therapy for 21 days and statin. Evaluated by Dr. Singletary. Unable to tolerate MRI machine due to significant claustrophobia. Transthoracic echo technically limited so cannot rule out PFO per neurology note; consider repeat echo if continued events to better evaluate for cardioembolic cause. Discharged back to [facility] on 04/23 with plans for outpatient MRI. Was feeling well and able to participate in therapy today. Following lunch, patient felt more fatigued. Daughter visited and noted slurred speech again. Facility staff also concerned for possible L sided facial droop. Noted flat affect this afternoon as well, per RN. No weakness in in extremities. Sent to ER for further evaluation. Denies any fall, syncope, palpitations or chest pain. No fever, chills, headache, SOB, nausea, vomiting, abdominal pain, dysuria or constipation. Continues to have looser sto ol with 2 episodes today. C diff toxin negative 04/22. Remote history of seizure disorder but denies seizure in past 15 years. Daughter notes worsened LLE edema than usual today. Confirmed with [facility] that patient was given aspirin, Plavix and statin this morning. Allergies Allergy/AdvReac Type Severity Reaction Status Date / Time clams Allergy Unknown ON MED LIST Verified 04/24/22 17:10 Home Medications Medication Instructions Recorded Confirmed Type calcium carbonate 600 mg-vitamin 1 cap PO BID 07/08/19 04/21/22 History D3 5 mcg (200 unit) capsule (Calcium 600 + D(3)) carbamazepine 400 mg 400 mg PO BID 07/08/19 04/21/22 History tablet,extended release,12 hr (Tegretol XR) glucosamine-chondroitin 250 mg-200 1 tab PO BID 07/24/19 04/21/22 History mg tablet (Osteo Bi-Flex) multivit with 1 tab PO QAM 07/24/19 04/21/22 History pntcrver-jdro-W[place]-lutein 8 mg iron-400 mcg-300 mcg tablet (Centrum Silver Women) turmeric 400 mg capsule 400 mg PO QAM 07/24/19 04/21/22 History ascorbic acid (vitamin C) 500 mg 500 mg PO HS 08/06/19 04/21/22 History tablet (Vitamin C) vitamin B complex-folic acid 2,000 1 cap PO DAILY 04/16/22 04/21/22 History mcg capsule aspirin 81 mg tablet,delayed 81 mg PO QAM 30 Days #30 tab 04/23/22 Rx release atorvastatin 40 mg tablet 40 mg PO QAM 30 Days #30 tab 04/23/22 Rx clopidogrel 75 mg tablet 75 mg PO QAM 30 Days #30 tab 04/23/22 Rx acetaminophen 325 mg tablet 650 mg PO Q4H PRN 04/24/22 04/24/22 History (Tylenol) ascorbic acid (vitamin C) 500 mg 500 mg PO HS 04/24/22 04/24/22 History tablet (Vitamin C) aspirin 81 mg tablet,delayed 81 mg PO DAILY 04/24/22 04/24/22 History release atorvastatin 40 mg tablet 40 mg PO DAILY 04/24/22 04/24/22 History calcium carbonate 500 mg-vitamin 1 tab PO BID 04/24/22 04/24/22 History D3 5 mcg (200 unit) tablet (Calcium 500 + D) carbamazepine 400 mg 400 mg PO Q12H 04/24/22 04/24/22 History tablet,extended release,12 hr clopidogrel 75 mg tablet (Plavix) 75 mg PO DAILY 04/24/22 04/24/22 History docusate sodium 100 mg capsule 100 mg PO BID 04/24/22 04/24/22 History enoxaparin 40 mg/0.4 mL 40 mg SUBCUT QPM 04/24/22 04/24/22 History subcutaneous syringe (Lovenox) glucosamine-chondroitin 250 mg-200 1 tab PO BID 04/24/22 04/24/22 History mg tablet (Osteo Bi-Flex) magnesium hydroxide 400 mg/5 mL 30 ml PO DAILY PRN 04/24/22 04/24/22 History oral suspension (Milk of Magnesia) multivitamin with minerals 1 tab PO DAILY 04/24/22 04/24/22 History olopatadine 0.1 % eye drops 1 drp OPB HS 04/24/22 04/24/22 History polyethylene glycol 3350 17 17 g PO QDL PRN 04/24/22 04/24/22 History gram/dose oral powder (Miralax) sennosides 8.6 mg-docusate sodium 1 tab PO QDL PRN 04/24/22 04/24/22 History 50 mg tablet (Senokot-S) vitamin B complex 1 tab PO DAILY 04/24/22 04/24/22 History Past Med/Surg History Medical History Arthritis Diverticular disease Glaucoma b/l Hiatal hernia Hx of basal cell carcinoma s/p excision Multinodular goiter Osteoporosis Seizure Hx epilepsy- no seizure x years Surgical History History of elbow surgery RIGHT Hx laparoscopic cholecystectomy (08/06/19) Laparoscopic Cholecystectomy Dr. 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 Physical Exam Physical Exam: Please see Dr. Baez's addendum for physical exam. Results & Data Results & Data ([facility]) Vital Signs (Past 12 Hours) Vital Signs Temp Pulse Resp BP Pulse Ox 04/24/22 17:40 96 H 24 93 04/24/22 17:30 95 H 19 136/91 94 04/24/22 17:20 97 H 21 95 04/24/22 17:15 94 H 18 147/86 H 94 04/24/22 17:10 95 H 20 94 04/24/22 17:00 96 H 20 147/85 H 94 04/24/22 16:50 96 H 16 94 04/24/22 16:45 96 H 18 151/87 H 94 04/24/22 16:40 97 H 20 151/87 H 94 04/24/22 16:30 100 H 15 94 04/24/22 16:29 94 04/24/22 16:24 99 H 19 137/79 95 04/24/22 16:20 102 H 27 H 95 04/24/22 16:15 36.6 C 100 H 20 165/89 H 94 04/24/22 16:10 105 H 20 95 04/24/22 16:07 104 H 17 94 Laboratory Results Short CBC 04/24/22 Range/Units 16:12 WBC 11.30 H (4.8-10.8) K/uL Hgb 12.4 (12.0-16.0) g/dL Hct 36.5 L (37-47) % Plt Count 224 (130-400) K/uL BMP 04/24/22 16:12 Sodium 137 Potassium 3.6 Chloride 105 Carbon Dioxide 24 BUN 13 Creatinine 0.49 L Glucose 107 H Calcium 8.6 Liver Function 04/24/22 Range/Units 16:12 Total Bilirubin 0.3 (0.2-1.0) mg/dl AST 19 (13-39) U/L ALT 23 (7-52) U/L Alkaline Phosphatase 83 (34-104) U/L Albumin 3.3 L (3.4-5.0) gm/dl Urine 04/24/22 Range/Units 17:40 Urine Color Yellow Urine Appearance Clear (Clear) Urine pH 7.5 (4.5-7.5) Ur Specific Magnet > 1.045 H (1.000-1.030) Urine Protein Negative (Negative) Urine Glucose (UA) Negative (Negative) Diagnostic Findings Chest X-Ray 04/24/22 15:44 XR chest 1V portable CLINICAL HISTORY: Stroke Like Symptoms. COMPARISON STUDY: No previous studies for comparison. TECHNIQUE: 1 view of the chest FINDINGS: Single frontal view of the chest demonstrates the heart to be mildly enlarged. There is a very large hiatal hernia posterior to the heart. The lungs are clear of alveolar opacities. There is no evidence for pleural effusion. There is no evidence for vascular congestion. There is no acute osseous pathology. IMPRESSION: 1. No acute cardiopulmonary disease. 2. Cardiomegaly and very large hiatal hernia. ACT 112: Negative or not required by law. Electronically signed by: Marky Aguila M.D. 04/24/2022 4:[address] 04/24/22 15:44 CT head/brain wo con CLINICAL HISTORY: Stroke Like Symptoms COMPARISON STUDY: No previous studies for comparison. CT DOSE: TECHNIQUE: Standard CT of the Brain was performed without IV contrast. A dose lowering technique was utilized adhering to the principles of ALARA. FINDINGS: Extraaxial space: There is no evidence for subdural hematoma. There are no extra -axial fluid collections. Ventricles and cisterns: The ventricles are normal in size and configuration. There is no evidence for midline shift or mass effect. Parenchyma: There is no subarachnoid or intraparenchymal hemorrhage. There is no evidence for an acute infarct or cerebral edema. There is homogeneous attenuation of the brain parenchyma. There are no gross mass lesions. Osseous structures: There is no evidence for an acute fracture. The visualized paranasal sinuses are clear. The mastoid air cells are clear bilaterally. Soft tissues: There is no evidence for focal soft tissue swelling. IMPRESSION: 1. No acute intracerebral pathology. ACT 112: Negative or not required by law. Electronically signed by: Marky Aguila M.D. 04/24/2022 4:08 PM Head CTA 04/24/22 15:44 CT angio head w con CLINICAL HISTORY: Stroke Like Symptoms COMPARISON STUDY: CT brain without contrast from 04/24/2022 CT DOSE: 1052.66 mGy.cm TECHNIQUE: CT Angio of the brain was performed.followed by image post processing with coronal, and sagittal MIP reformats. Contrast Volume: Optiray 320, 119 ml FINDINGS: Vascular findings: There is normal enhancement within the internal carotid arteries bilaterally. On the left side, there is normal enhancement noted within the anterior and middle cerebral arteries. However, the P1 segment of the left posterior cerebral artery is absent with filling of the distal posterior segments via the posterior communicating artery on the left from the anterior circulation. On the right side, there is marked atherosclerotic disease present involving the A1 segment of the anterior cerebral artery. However, the distal branches are well opacified via the anterior communicating artery. The right middle and posterior cerebral arteries are patent. Nonvascular findings: There is homogeneous attenuation of the brain parenchyma bilaterally. There is no evidence for an acute infarct or cerebral edema. IMPRESSION: 1. 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 2. Marked atherosclerotic disease involving the A1 segment of the right anterior cerebral artery. However, there is filling of the distal branches of the anterior cerebral artery via anterior communicating artery. ACT 112: Negative or not required by law. Electronically signed by: Marky Aguila M.D. 04/24/2022 4:19 PM Neck CTA 04/24/22 15:44 CT angio neck with con CLINICAL HISTORY: 76 years-old Female with Stroke Like Symptoms. Acute strokelike symptoms COMPARISON STUDY: CTA head of same day TECHNIQUE: Following the IV administration of 119 mL of Optiray, CT angiogram of the neck was performed from the aortic arch to the skull base. Images are reviewed in the axial, sagittal, and coronal planes. 3-D MIPS images are created and assessed. IV contrast was administered without complication. All measurements were calculated based on NASCET criteria. A dose lowering technique was utilized adhering to the principles of ALARA. FINDINGS: Three-vessel morphology of the thoracic aortic arch. There is patency of the innominate and imaged subclavian arteries. The common carotid arteries are patent. There is mild atherosclerotic plaque of the carotid bulbs without significant stenosis. Additional atherosclerosis of the cavernous, and clinoid segments without high-grade stenosis. Codominant and patent vertebral arteries. The basilar artery is patent. origin of the left posterior cerebral artery. No aneurysm, dissection, high-grade stenosis or arterial occlusion. No pneumothorax. Multinodular thyroid goiter with superior mediastinal extension. Rightward deviation of the airway and esophagus. Multilevel degenerative changes of the cervical spine. IMPRESSION:No aneurysm, dissection, high-grade stenosis or arterial occlusion. ACT 112: Negative or not required by law. The above report was generated using voice recognition software. It may contain grammatical, syntax or spelling errors. Electronically signed by: Sulaiman Torres M.D. 04/24/2022 4:25 PM Code Status & VTE Plan VTE Prophylaxis Plan VTE Prophylaxis will be ordered: Yes Supervising Physician Co-Signing Physician Notes Pt is a 76 y/o F with hx of seizure, recent dx of TIA, NAVIN, multiple thyroid nod ules, DJD, recent dx of C.diff and Pneumonia (completed treatment) [facility] with acute slight R facial droop and slur speech and fatigue. At bedside: pt denied any slur speech or Facial droop but complained of mild generalized fatigue. Denied any cough, SOB, CP, palpitation or dizziness. PE: NAD, well developed Card: Normal S1/S2, no murmur Lungs: CTA, no crackles or wheezing Abd: ND, NT, soft Neuro: CN II-XII intact, PERRLA, EOMI, normal motor strength MSK: b/l distal trace pitting edema of the LE Pysch: AAOx3, normal affect A/P: R facial droop and slur speech: -resolved -likely 2/2 TIA -not suspecting seizure episode: no LOC or rapid movement of extremities and last episode was 15 years ago -Pt does not want to get MRI brain ---- pt is claustrophobic -will get echo with bubble study -tele admit -continue Plavix, aspirin and statin -PT/OT -neuro consult Other chronic conditions plan as above Agree with A/P by Sharona Chandler PA-C
[2022-04-24 18:03] LABS: Appearance Urine Clear (Clear); Bilirubin Urine Negative (Negative); Blood Urine Negative (Negative); Color Urine Yellow; Glucose Urine UA Negative (Negative); Ketones Urine 1+ (Negative); Leukocyte Esterase Urine Negative (Negative); Nitrite Urine Negative (Negative); Protein Urine Negative (Negative); Specific Gravity Urine > 1.045 (1.000-1.030); Urobilinogen Urine Negative (Negative); pH Urine 7.5 (4.5-7.5)
[2022-04-24] MEDS ORDERED: ONDANSETRON INJ 2 MG/ML 2 ML VIAL IV PRN (19:24)
[2022-04-24] MEDS ORDERED: POLYETHYLENE (MIRALAX) 17 GM PACK PO PRN (19:24)
[2022-04-24] MEDS ORDERED: PHARMACIST DISCHARGE MED REC CONSULT PRN (19:24)
[2022-04-24] MEDS ORDERED: ACETAMINOPHEN 325 MG TAB PO PRN (19:24)
[2022-04-24] MEDS ORDERED: MAGNESIUM HYDROXIDE SUSP 30 ML UDC PO PRN (19:32)
[2022-04-24] MEDS: ENOXAPARIN INJ 40 MG/0.4 ML SYR SQ SCH (20:18)
[2022-04-24] MEDS ORDERED: NON-FORMULARY MEDICATION (Olopatadine 0.1 % Drops) OPB SCH (21:00)
[2022-04-24] MEDS ORDERED: NON-FORMULARY MEDICATION (Glucosamine-Chondroitin [Osteo Bi-Flex] 250-200 mg Tablet) PO SCH (21:00)
[2022-04-24] MEDS: ASCORBIC ACID 500 MG TAB PO SCH (21:33)
[2022-04-24] MEDS: CALCIUM 600MG + VIT D 400 IU TAB PO SCH (21:33)
[2022-04-25] MEDS: ATORVASTATIN 40 MG TAB PO SCH (08:17)
[2022-04-25] MEDS: CALCIUM 600MG + VIT D 400 IU TAB PO SCH ×2 (08:17→20:14)
[2022-04-25] MEDS: ASPIRIN 81 MG ECTAB PO SCH (08:17)
[2022-04-25] MEDS: MULTIVITAMIN TAB PO SCH (08:18)
[2022-04-25] MEDS: CLOPIDOGREL BISULFATE 75 MG TAB PO SCH (08:18)
[2022-04-25 08:47] LABS: Hematocrit (blood only) 39.1 % (37-47); Hemoglobin 13.2 g/dL (12.0-16.0); Mean Corpuscular Hemoglobin 32.1 pg (25-34); Mean Corpuscular Hgb Conc 33.8 g/dL (32-36); Mean Corpuscular Volume 95.1 fL (80-100); Mean Platelet Volume 9.3 fL (7.4-10.4); Platelet Count 256 K/uL (130-400); RDW Coefficient of Variation 13.1 % (11.5-14.5); RDW Standard Deviation 45.7 fL (36.4-46.3); Red Blood Count 4.11 M/uL (4.2-5.4)
[2022-04-25 08:57] LABS: Chol HDL Ratio 2.7 (0-5); Creatinine Clr Calc Pharmacy 91.3 ml/min; Est GFR (African American) 110.5 ml/min; Est GFR (Non-African American) 95.3 ml/min; Potassium 3.9 mmol/L (3.5-5.1)
[2022-04-25] MEDS ORDERED: NON-FORMULARY MEDICATION (Vitamin B Complex Tablet) PO SCH (09:00)
[2022-04-25 11:07] LABS: Estimated Average Glucose 105 mg/dl; Hemoglobin A1C 5.3 % (4.5-5.6)
--- NOTE | 2022-04-25 13:37 | Neurology Consultation ---
Date of Consultation April 25, 2022 Assessment & Plan (1) TIA (transient ischemic attack): 1. needs MRI brain with and without to evaluate for stroke or lesion- she is refusing 2. needs EEG- seizure history r/o seizure event- ordered 3. repeat TTE - was too much motion artifact on previous TTE 4. optimize HTN HLD LDL<70 5. continue aspirin 81 mg and plavix 75 mg 6. fall precautions Supervising Physician Co-Signing Physician Notes I have seen and discussed above patient with Dr Thu Singletary, neurolog. Patient seen and examined discussed with Thu Bright. She was just here for word finding difficulty and if flattened right nasolabial fold. Her work-up was noncontributory although she could not have an MRI due to claustrophobia. She had not been on antiplatelet therapy previously and was placed on dual antiplatelet therapy several days ago. She went back to [facility] on April 23 and on April 24 she had an episode where it was thought that there may have been a left facial droop and that she was that she had a blank expression. Patient indicates that she recalls the episode. 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 CTA CT head reviewed with radiology and appeared to show no high-grade stenosis or new event on exam the patient is awake and alert speech and language are no rmal affect appropriate no carotid bruits no heart murmurs heart is regular rate and rhythm. There is normal extraocular motility visual tracy and facial symmetry symmetric strength in the upper and lowers normal [id number] impression subtle transient ischemic attack query partial complex seizure. If the description of the episodes is correct i.e. 1 affecting right face the other affecting left face that raises the question whether or not this could be cardioembolic. I feel it is very important for her to have an MRI but she feels it cannot be done. I would recommend once she is discharged to see if 1 can be performed through [facility] possibly at [facility] which is a relatively open machine. In the interim no change of aspirin and Plavix. Recommend EEG to rule out partial complex seizure we will follow with you Thu Singletary MD History of Present Illness Reason for Consultation: stroke-like sx Requesting Physician: Adelfo Ferreira MD Attending Physician: Adelfo Ferreira MD History of Present Illness Malinda is a 76 year old female with a PMH-seizure disorder, recent TIA on 04/21/22 who presented from [facility] today with slurred speech and R sided facial droop. She has had multiple recent admissions, starting with admission for generalized weakness and pneumonia (completed abx on 04/23) with discharge to [facility]. On 04/21, patient developed slurred speech and facial droop and was readmitted to [facility] for TIA. Discharged on dual antiplatelet therapy for 21 days and statin. Evaluated by Dr. Singletary but unable to tolerate MRI machine due to significant claustrophobia. Transthoracic echo technically limited so cannot rule out PFO per neurology note; consider repeat echo if continued events to better evaluate for cardioembolic cause. She was then discharged back to [facility] on 04/23 with plans for outpatient MRI. Was feeling well and able to participate in therapy today. Following lunch, patient felt more fatigued. Her daughter visited and noted slurred speech again. There was possible L sided facial droop and flat affect this afternoon as well, per RN. No weakness in in extremities. She was then sent back to [facility] 04/24/22 ER for further evaluation. She continues to have looser stool with 2 episodes today. C diff toxin negative 04/22. She has a remote history of seizure disorder but denies seizure in past 15 years. Daughter notes worsened LLE edema than usual. Allergies Allergy/AdvReac Type Severity Reaction Status Date / Time clams Allergy Unknown ON MED LIST Verified 04/24/22 17:10 Home Medications Medication Instructions Recorded Confirmed Type turmeric 400 mg capsule 400 mg PO QAM 07/24/19 04/24/22 History acetaminophen 325 mg tablet 650 mg PO Q4H PRN 04/24/22 04/24/22 History (Tylenol) ascorbic acid (vitamin C) 500 mg 500 mg PO HS 04/24/22 04/24/22 History tablet (Vitamin C) aspirin 81 mg tablet,delayed 81 mg PO DAILY 04/24/22 04/24/22 History release atorvastatin 40 mg tablet 40 mg PO DAILY 04/24/22 04/24/22 History calcium carbonate 500 mg-vitamin 1 tab PO BID 04/24/22 04/24/22 History D3 5 mcg (200 unit) tablet (Calcium 500 + D) carbamazepine 400 mg 400 mg PO Q12H 04/24/22 04/24/22 History tablet,extended release,12 hr clopidogrel 75 mg tablet (Plavix) 75 mg PO DAILY 04/24/22 04/24/22 History docusate sodium 100 mg capsule 100 mg PO BID 04/24/22 04/24/22 History enoxaparin 40 mg/0.4 mL 40 mg SUBCUT QPM 04/24/22 04/24/22 History subcutaneous syringe (Lovenox) glucosamine-chondroitin 250 mg-200 1 tab PO BID 04/24/22 04/24/22 History mg tablet (Osteo Bi-Flex) magnesium hydroxide 400 mg/5 mL 30 ml PO DAILY PRN 04/24/22 04/24/22 History oral suspension (Milk of Magnesia) multivitamin with minerals 1 tab PO DAILY 04/24/22 04/24/22 History olopatadine 0.1 % eye drops 1 drp OPB HS 04/24/22 04/24/22 History polyethylene glycol 3350 17 17 g PO QDL PRN 04/24/22 04/24/22 History gram/dose oral powder (Miralax) sennosides 8.6 mg-docusate sodium 1 tab PO QDL PRN 04/24/22 04/24/22 History 50 mg tablet (Senokot-S) vitamin B complex 1 tab PO DAILY 04/24/22 04/24/22 History Patient History Medical History Arthritis Diverticular disease Glaucoma b/l Hiatal hernia Hx of basal cell carcinoma s/p excision Multinodular goiter Osteoporosis Seizure Hx epilepsy- no seizure x years Surgical History History of elbow surgery RIGHT Hx laparoscopic cholecystectomy (08/06/19) Laparoscopic Cholecystectomy Dr. Ty 08/06/19 Hx of basal cell carcinoma excision Family History Daughter Breast cancer Social History Smoking Status: Never smoker Second Hand Exposure: No; Hx Alcohol Use: Yes Alcohol type: wine Hx Substance Use: No Preferred Language: Turkmen Communication Ability: Effective Lidder Required: No Beliefs That Will Affect Care: None marital status: Current Living Situation: Alone Current Living Situation Comment: Lives alone in apartment in [place] in [place] current occupational status: retired How many Children do You have: 1 Other Information That Helps Us Care for You: No Feels Safe at Home: Yes Safety Concerns: Feels Safe At This Time Assistive Devices: Walker Review of Systems Review of Systems: All systems reviewed & are unremarkable except as noted in HPI & below Physical Exam Physical Exam: Physical Exam: Constitutional: appearance over nourished, healthy and normal Ears, Nose, Mouth and Throat: mucous membranes moist, no injection and skin normal, eyes normal Cardiovascular: normal S-1 and S-2 and regular rate and rhythm Respiratory: clear to auscultation (CTA) and no rales, ronchi or wheeze Musculoskeletal: no peripheral edema and good distal pulses Skin: no stigmata of neurocutaneous disease noted and normal and intact Eyes: extraocular muscles intact (EOMI) and pupils equal, round and reactive to light (PERRL) NEUROLOGIC EXAMINATION: Mental status: Alert and interactive Oriented to person Speech fluent with no evidence of aphasia Cranial Nerves smile eye brow raise symmetric Reflexes: Deep tendon reflexes were symmetrical and graded 2/5. down going toes Sensory: vibration intact, cool touch decrease to shins Coordination: finger to nose Gait/Stance: Posture lying in bed Motor: Negative for pronator drift of out stretched arms with eyes closed. Strength: hand head of music biceps triceps deltoids 5/5, hip flex plantar flex ext 5/5 Results & Data ([facility]) Vital Signs (Past 12 Hours) Vital Signs Temp Pulse Pulse Resp BP Pulse Ox 04/25/22 10:58 36.7 C 84 17 122/71 95 04/25/22 10:44 73 04/25/22 07:08 36.8 C 80 16 105/67 95 04/25/22 02:57 36.8 C 82 18 109/71 95 Laboratory Results Abnormal lab results 04/24/22 04/24/22 04/24/22 Range/Units 16:12 16:12 16:18 WBC 11.30 H (4.8-10.8) K/uL RBC 3.89 L (4.2-5.4) M/uL POC Hgb 11.9 L (12.0-16.0) g/dl Hct 36.5 L (37-47) % POC Hct 35 L (37-47) % Neut # (Auto) 8.00 H (1.4-6.5) K/uL Polk # (Auto) 1.07 H (0.11-0.59) K/uL Immature Gran # (Auto) 0.04 H (0.00-0.02) K/uL Chloride (98-107) mmol/L POC Anion Gap 13.0 L (16-25) mmol/L Creatinine 0.49 L (0.6-1.2) mg/dl POC Creatinine 0.5 L (0.6-1.3) mg/dl BUN/Creatinine Ratio 26.5 H (10-20) Glucose 107 H (70-99(Fasting)) mg/dl POC Glucose (other) 106 H (70-99) mg/dl Total Protein 5.2 L (6.0-8.3) gm/dl Albumin 3.3 L (3.4-5.0) gm/dl Globulin 1.9 L (2.5-4.0) gm/dl Ur Specific [place] (1.000-1.030) Urine Ketones (Negative) 04/24/22 04/25/22 04/25/22 Range/Units 17:40 07:16 07:16 WBC 11.00 H (4.8-10.8) K/uL RBC 4.11 L (4.2-5.4) M/uL POC Hgb (12.0-16.0) g/dl Hct (37-47) % POC Hct (37-47) % Neut # (Auto) (1.4-6.5) K/uL Polk # (Auto) (0.11-0.59) K/uL Immature Gran # (Auto) (0.00-0.02) K/uL Chloride 108 H (98-107) mmol/L POC Anion Gap (16-25) mmol/L Creatinine 0.50 L (0.6-1.2) mg/dl POC Creatinine (0.6-1.3) mg/dl BUN/Creatinine Ratio 22.0 H (10-20) Glucose (70-99(Fasting)) mg/dl POC Glucose (other) (70-99) mg/dl Total Protein (6.0-8.3) gm/dl Albumin (3.4-5.0) gm/dl Globulin (2.5-4.0) gm/dl Ur Specific [place] > 1.045 H (1.000-1.030) Urine Ketones 1+ H (Negative) Diagnostic Findings CXR- No acute cardiopulmonary disease. Cardiomegaly and very large hiatal hernia. CT head-No acute intracerebral pathology. 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 Marked atherosclerotic disease involving the A1 segment of the right anterior cerebral artery. However, there is filling of the distal branches of the anterior cerebral artery via anterior communicating artery. Addendum by Thu Singletary MD reviewed with radiology there is no high-grade stenosis in the intracranial vasculature.
--- NOTE | 2022-04-25 15:36 | Hospitalist Progress Note ---
Date of Service April 25, 2022 Assessment & Plan (1) TIA (transient ischemic attack): (2) Seizure disorder: Plan: PER DR. MCCORMICK'S NOTES WITH ADDENDUM: This is a 76yo F with a PMH of seizure disorder, recent TIA on 04/21/22 who presented from [facility] today with slurred speech and R sided facial droop. Patient with multiple recent admissions, starting with 04/16- admission for generalized weakness and pneumonia (completed abx on 04/23) with discharge to [facility] and then sent back to [facility] 04/21-04/23 for TIA Neurology evaluated and patient was started on dual antiplatelet therapy for 21 days and statin Unable to tolerate MRI machine due to significant claustrophobia. Transthoracic echo technically limited so cannot rule out PFO per neurology note; consider repeat echo if continued events to better evaluate for cardioembolic cause Returned today (04/24/22) with recurrent slurred speech and L sided facial droop per [facility] RN Symptoms have since resolved CT head, CTA head/neck with unchanged findings from 04/21/22 Confirmed with [facility] that patient received aspirin, plavix and statin this morning Discussed attempting brain MRI again with pre-medication. Patient denied and stated she is willing to try outpatient MRI if an open machine Repeating 2d echo. May consider cardiology consult if felt to be a cardioembolic cause Neurology consulted PT/OT/speech consults placed Advance diet if passes dysphagia screen 04/25/2022 neurologic deficits resolved patient cannot tolerate Brain MRI no arrhythmia on Telemetry continue ASA, Plavix, Lipitor awaiting Neurology recommendations will need outpatient Zio patch Seizure disorder Remote condition; no episode for over 15 years Continue carbamazepine, repeat levels in AM DVT Ppx: SQ Lovenox Code status: FULL PCP: Michael Dispo: return to [facility] when cleared by Neuro, likely tomorrow Admission and Anticipated Discharge Date Admission Date: April 24, 2022 Subjective ff up for recurrent TIAs, etc seen resting in bed, sitting up in good spirits states she feels better overall facial droop, slurred speech resolved no new focal neurologic deficits no chest pain, dyspnea, palpitations, dizziness no other symptoms Review of Systems Review of Systems: all noted and negative except for above Physical Exam Physical Exam: General- oriented x 3, not in distress, speaks in sentences with no effort or accessory muscle use Eyes- anicteric Neck- no JVD Lungs- clear breath sounds bilaterally, no rales/wheezes Heart- normal rate, regular rhythm; no murmurs Abdomen- normal bowel sounds, nondistended, soft, nontender Extremities- no pretibial edema, no calf tenderness Neuro- alert, oriented x 3; no gross focal neurologic deficits Skin- warm & dry Results & Data Results & Data ([facility]) Vital Signs (Past 12 Hours) Vital Signs Temp Pulse Pulse Resp BP Pulse Ox 04/25/22 15:27 36.7 C 87 18 117/74 95 04/25/22 10:58 36.7 C 84 17 122/71 95 04/25/22 10:44 73 04/25/22 07:08 36.8 C 80 16 105/67 95 all noted and reviewed including below
[2022-04-25] MEDS: ASCORBIC ACID 500 MG TAB PO SCH (20:14)
[2022-04-25] MEDS: ENOXAPARIN INJ 40 MG/0.4 ML SYR SQ SCH (20:15)
--- NOTE | 2022-04-25 21:58 | Electrocardiogram Report ---
Test Reason : Blood Pressure : / mmHG Vent. Rate : 103 BPM Atrial Rate : 103 BPM P-R Int : 170 ms QRS Dur : 094 ms QT Int : 346 ms P-R-T Axes : 037 -03 033 degrees QTc Int : 453 ms Sinus tachycardia Incomplete right bundle branch block Borderline ECG When compared with ECG of 21-APR-2022 18:05, No significant change was found Confirmed by Lucian Ibarra ([id number]) on 04/25/2022 9:58:01 PM Referred By: REFERRED SELF Confirmed By:Lucian Ibarra
[2022-04-26 08:02] LABS: Hematocrit (blood only) 39.5 % (34.1-44.9); Hemoglobin 13.3 g/dl (12.0-16.0); Mean Corpuscular Hemoglobin 31.7 pg (25.0-34.0); Mean Corpuscular Volume 94.3 fL (80.0-100.0); Red Blood Count 4.19 M/uL (3.93-5.22); White Blood Count 10.04 K/ul (4.8-10.8)
[2022-04-26 08:03] LABS: Mean Corpuscular Hgb Conc 33.7 g/dL (32.0-36.0); Mean Platelet Volume 9.1 fL (9.4-12.3); Platelet Count 235 K/uL (130-400); RDW Coefficient of Variation 12.5 % (11.5-14.5); RDW Standard Deviation 43.1 fL (36.4-46.3)
[2022-04-26 08:29] LABS: Anion Gap 3 (3-11); BUN Creatinine Ratio 25.5 (10-20); Blood Urea Nitrogen 14 mg/dl (6-23); Calcium 9.1 mg/dl (8.5-10.1); Carbon Dioxide 30 mmol/L (21-32); Chloride 107 mmol/L (98-107); Creatinine Clr Calc Pharmacy 82.3 ml/min; Est GFR (African American) 107.1 ml/min; Est GFR (Non-African American) 92.4 ml/min; Glucose 93 mg/dl (70-99(Fasting)); Sodium 140 mmol/L (136-145)
[2022-04-26] MEDS: CALCIUM 600MG + VIT D 400 IU TAB PO SCH ×2 (08:48→20:30)
[2022-04-26] MEDS: MULTIVITAMIN TAB PO SCH (08:48)
[2022-04-26] MEDS: CLOPIDOGREL BISULFATE 75 MG TAB PO SCH (08:48)
[2022-04-26] MEDS: ATORVASTATIN 40 MG TAB PO SCH (08:48)
[2022-04-26] MEDS: ASPIRIN 81 MG ECTAB PO SCH (08:48)
--- NOTE | 2022-04-26 11:17 | Hospitalist Progress Note ---
Date of Service April 26, 2022 Assessment & Plan (1) TIA (transient ischemic attack): (2) Seizure disorder: Plan: This is a 76yo F with a PMH of seizure disorder, recent TIA on 04/21/22 who presented from [facility] with slurred speech and R sided facial droop. Patient with multiple recent admissions, starting with 04/16- admission for generalized weakness and pneumonia (completed abx on 04/23) with discharge to [facility] and then sent back to [facility] 04/21-04/23 for TIA Neurology evaluated and patient was started on dual antiplatelet therapy for 21 days and statin Unable to tolerate MRI machine due to significant claustrophobia. Transthoracic echo without intra-atrial shunt Returned on (04/24/22) with recurrent slurred speech and L sided facial droop per [facility] RN Symptoms have since resolved CT head, CTA head/neck with unchanged findings from 04/21/22 Confirmed with [facility] that patient received aspirin, plavix and statin morning of admission Discussed attempting brain MRI again with pre-medication. Patient denied and stated she is willing to try outpatient MRI if an open machine Repeating 2d echo. May consider cardiology consult if felt to be a cardioembolic cause Neurology consulted PT/OT/speech consults placed Advance diet if passes dysphagia screen 04/25/2022 neurologic deficits resolved patient cannot tolerate Brain MRI no arrhythmia on Telemetry continue ASA, Plavix, Lipitor Neurology recommends brain MRI, likely as outpatient, EEG EEG done today, April 26, results pending will need outpatient Zio patch Seizure disorder Remote condition; no episode for over 15 years Continue carbamazepine, repeat levels in AM EEG pending results DVT Ppx: SQ Lovenox Code status: FULL PCP: Dr. Rodriguez Dispo: return to [facility] when cleared by Neuro Admission and Anticipated Discharge Date Admission Date: April 24, 2022 Subjective Patient seen in follow-up for recurrent TIAs, versus partial complex seizure Currently sitting up in chair, in no acute distress No fevers, chills, chest pain, shortness of breath facial droop, slurred speech resolved no new focal neurologic deficits no other symptoms Patient seen by neurology, recommended MRI, however patient refuses. EEG done today, report pending Review of Systems Review of Systems: All systems reviewed & are unremarkable except as noted in Subjective Physical Exam Physical Exam: General- oriented x 3, not in distress, speaks in sentences with no effort or accessory muscle use Eyes-PERRL, EOMI, anicteric Neck-supple , no JVD Lungs- clear breath sounds bilaterally, no rales/wheezes Heart- normal rate, regular rhythm; no murmurs Abdomen- normal bowel sounds, nondistended, soft, nontender Extremities- no pretibial edema, no calf tenderness Neuro- alert, oriented x 3; speech fluent, answers questions appropriately, moves extremities Skin- warm & dry Results & Data Results & Data ([facility]) Vital Signs (Past 12 Hours) Vital Signs Temp Pulse Pulse Resp BP Pulse Ox 04/26/22 11:14 36.8 C 85 18 105/70 94 04/26/22 07:33 86 04/26/22 07:05 36.6 C 84 18 113/72 96 04/26/22 03:00 36.7 C 75 16 109/72 95 04/26/22 00:03 80 04/25/22 23:47 36.7 C 80 16 103/67 95 Laboratory Results 04/26/22 04/26/22 04/26/22 Range/Units 08:36 07:21 07:21 WBC 10.04 (4.8-10.8) K/ul RBC 4.19 (3.93-5.22) M/uL Hgb 13.3 (12.0-16.0) g/dl Hct 39.5 (34.1-44.9) % MCV 94.3 (80.0-100.0) fL MCH 31.7 (25.0-34.0) pg MCHC 33.7 (32.0-36.0) g/dL RDW Std Deviation 43.1 (36.4-46.3) fL RDW Coeff of Bhavesh 12.5 (11.5-14.5) % Plt Count 235 (130-400) K/uL MPV 9.1 L (9.4-12.3) fL Sodium 140 (136-145) mmol/L Potassium 3.7 TNP Chloride 107 (98-107) mmol/L Carbon Dioxide 30 (21-32) mmol/L Anion Gap 3 (3-11) BUN 14 (6-23) mg/dl Creatinine 0.55 L (0.6-1.2) mg/dl Est Cr Clr Drug Dosing 82.3 ml/min Est GFR ( Amer) 107.1 ml/min Est GFR (Non-Af Amer) 92.4 ml/min BUN/Creatinine Ratio 25.5 H (10-20) Glucose 93 (70-99(Fasting)) mg/dl Calcium 9.1 (8.5-10.1) mg/dl Medications Administered Current Inpatient Medications Acetaminophen (Acetaminophen 325 Mg Tab) 650 mg PO Q4H PRN PRN Reason: Pain or Fever Stop: 05/24/22 19:23 Ascorbic Acid (Ascorbic Acid 500 Mg Tab) 500 mg PO HS JUAN FRANCISCO Stop: 05/24/22 20:59 Last Admin: 04/25/22 20:14 Dose: 500 mg Documented by: Aspirin (Aspirin 81 Mg Ectab) 81 mg PO DAILY JUAN FRANCISCO Stop: 05/25/22 08:59 Last Admin: 04/26/22 08:48 Dose: 81 mg Documented by: Atorvastatin Calcium (Atorvastatin 40 Mg Tab) 40 mg PO DAILY JUAN FRANCISCO Stop: 05/25/22 08:59 Last Admin: 04/26/22 08:48 Dose: 40 mg Documented by: Carbamazepine (Carbamazepine 200 Mg Tabcr) 400 mg PO Q12H JUAN FRANCISCO Stop: 05/24/22 19:44 Last Admin: 04/26/22 08:48 Dose: 400 mg Documented by: Clopidogrel Bisulfate (Clopidogrel Bisulfate 75 Mg Tab) 75 mg PO DAILY JUAN FRANCISCO Stop: 05/25/22 08:59 Last Admin: 04/26/22 08:48 Dose: 75 mg Documented by: Enoxaparin Sodium (Enoxaparin Inj 40 Mg/0.4 Ml Syr) 40 mg SQ Q24H JUAN FRANCISCO Stop: 05/24/22 19:23 Last Admin: 04/25/22 20:15 Dose: 40 mg Documented by: Magnesium Hydroxide (Magnesium Hydroxide Susp 30 Ml Udc) 30 ml PO DAILY PRN PRN Reason: Constipation Stop: 05/24/22 19:31 Multivitamins (Multivitamin Tab) 1 tab PO DAILY JUAN FRANCISCO Stop: 05/25/22 08:59 Last Admin: 04/26/22 08:48 Dose: 1 tab Documented by: Multivitamins/Minerals (Calcium 600mg + Vit D 400 Iu Tab) 1 tab PO BID JUAN FRANCISCO Stop: 05/24/22 20:59 Last Admin: 04/26/22 08:48 Dose: 1 tab Documented by: Ondansetron HCl (Ondansetron Inj 2 Mg/Ml 2 Ml Vial) 4 mg IV Q6H PRN PRN Reason: Nausea Stop: 05/24/22 19:23 Polyethylene Glycol (Polyethylene (Miralax) 17 Gm Pack) 17 gm PO DAILY PRN PRN Reason: Constipation Stop: 05/24/22 19:23
--- NOTE | 2022-04-26 11:52 | Neurology Progress Note ---
Date of Service April 26, 2022 Assessment & Plan (1) TIA (transient ischemic attack): Plan: 1. needs MRI brain with and without to evaluate for stroke or lesion- [facility] should order at [facility] should be able to tolerate a that facility 2. needs EEG- seizure history r/o seizure event- -normal 3. repeat TTE - was too much motion artifact on previous TTE- addendum sufficient for evaluation 4. optimize HTN HLD LDL<70 5. continue aspirin 81 mg and plavix 75 mg 6. fall precautions 7. will need ZIO as outpatient 8. further evaluation with 72 hour EEG as outpatient ok to discharge when medically stable. Admission and Anticipated Discharge Date Admission Date: April 24, 2022 Supervising Physician Co-Signing Physician Notes I have seen and discussed above patient with Dr Thu Singletary, neurology. PT seen and examined with Lillie. TIA with dc and readmission next day. Daughter believes both spells involved left face, but unclear bc my H and p reported r sided sx and word finding diff. Unable to have MRI due to claustrophobia. CT no acute abnl and CTA unremarkable. Echo noncontrib, no afib. EEG no sz. P TIA , query Pcom sz. Contin DAPT for 21 d then asa monotherapy. Statin tx goal LDL 70 or less. Zio and Amb eeg as outpt. Pls have [facility] set up an abhay MRI brain either at [facility] or [address] [place] [address], preferably while pt still and inpt. Follow-up with neurology post dc. MD Kwame Flakita Petty is a 76 year old female with a PMH-seizure disorder, recent TIA on 04/21/22 who presented from [facility] today with slurred speech and R sided facial droop. She has had multiple recent admissions, starting with 04/16- admission for generalized weakness and pneumonia (completed abx on 04/23) with discharge to [facility]. On 04/21, patient developed slurred speech and facial droop and was readmitted to [facility] for TIA. Discharged on dual antiplatelet therapy for 21 days and statin. Evaluated by Dr. Singletary but unable to tolerate MRI machine due to significant claustrophobia. Transthoracic echo technically limited so cannot rule out PFO per neurology note; consider repeat echo if continued events to better evaluate for cardioembolic cause. She was then discharged back to [facility] on 04/23 with plans for outpatient MRI. Was feeling well and able to participate in therapy today. Following lunch, patient felt more fatigued. Her daughter visited and noted slurred speech again. There was possible L sided facial droop and flat affect this afternoon as well, per RN. No weakness in in extremities. She was then sent back to [facility] 04/24/22 ER for further evaluation. She continues to have looser stool with 2 episodes today. C diff toxin negative 04/22. She has a remote history of seizure disorder but denies seizure in past 15 years. Daughter notes worsened LLE edema than usual. Review of Systems Review of Systems: All systems reviewed & are unremarkable except as noted in HPI & below Physical Exam Physical Exam: Physical Exam: Constitutional: appearance over nourished, healthy and normal Ears, Nose, Mouth and Throat: mucous membranes moist, no injection and skin normal, eyes normal Cardiovascular: normal S-1 and S-2 and regular rate and rhythm Respiratory: clear to auscultation (CTA) and no rales, ronchi or wheeze Musculoskeletal: no peripheral edema and good distal pulses Skin: no stigmata of neurocutaneous disease noted and normal and intact Eyes: extraocular muscles intact (EOMI) and pupils equal, round and reactive to light (PERRL) NEUROLOGIC EXAMINATION: Mental status: Alert and interactive Oriented to person Speech fluent with no evidence of aphasia Cranial Nerves smile eye brow raise symmetric Reflexes: Deep tendon reflexes were symmetrical and graded 2/5. down going toes Sensory: vibration intact, cool touch decrease to shins Coordination: finger to nose Gait/Stance: Posture lying in bed Motor: Negative for pronator drift of out stretched arms with eyes closed. Strength: hand cable maker biceps triceps deltoids 5/5, hip flex plantar flex ext 5/5 Results & Data ([facility]) Vital Signs (Past 12 Hours) Vital Signs Temp Pulse Pulse Resp BP Pulse Ox 04/26/22 11:14 36.8 C 85 18 105/70 94 04/26/22 07:33 86 04/26/22 07:05 36.6 C 84 18 113/72 96 04/26/22 03:00 36.7 C 75 16 109/72 95 04/26/22 00:03 80 Laboratory Results Abnormal lab results 04/26/22 04/26/22 Range/Units 07:21 07:21 MPV 9.1 L (9.4-12.3) fL Creatinine 0.55 L (0.6-1.2) mg/dl BUN/Creatinine Ratio 25.5 H (10-20) Diagnostic Findings EEG- preliminary report - normal
[2022-04-26] MEDS: THIAMINE HCL 100 MG TAB PO SCH (15:36)
[2022-04-26] MEDS: CYANOCOBALAMIN (B-12) 100 MCG TABLET PO SCH (15:37)
--- NOTE | 2022-04-26 16:49 | Electroencephalogram ---
EEG Procedure Note Date of Service April 26, 2022 Start / End Times Start Time: 11:26 End Time: 11:46 Referring Physician Thu Bright PA-C History A 76 year old woman admitted with facial droop and slurred speech. Had similar symptoms in the past. EEG performed for evaluation of epileptiform activity. Home Medication List Medication Instructions Recorded Confirmed Type turmeric 400 mg capsule 400 mg PO QAM 07/24/19 04/24/22 History acetaminophen 325 mg tablet 650 mg PO Q4H PRN 04/24/22 04/24/22 History (Tylenol) ascorbic acid (vitamin C) 500 mg 500 mg PO HS 04/24/22 04/24/22 History tablet (Vitamin C) aspirin 81 mg tablet,delayed 81 mg PO DAILY 04/24/22 04/24/22 History release atorvastatin 40 mg tablet 40 mg PO DAILY 04/24/22 04/24/22 History calcium carbonate 500 mg-vitamin 1 tab PO BID 04/24/22 04/24/22 History D3 5 mcg (200 unit) tablet (Calcium 500 + D) carbamazepine 400 mg 400 mg PO Q12H 04/24/22 04/24/22 History tablet,extended release,12 hr clopidogrel 75 mg tablet (Plavix) 75 mg PO DAILY 04/24/22 04/24/22 History docusate sodium 100 mg capsule 100 mg PO BID 04/24/22 04/24/22 History enoxaparin 40 mg/0.4 mL 40 mg SUBCUT QPM 04/24/22 04/24/22 History subcutaneous syringe (Lovenox) glucosamine-chondroitin 250 mg-200 1 tab PO BID 04/24/22 04/24/22 History mg tablet (Osteo Bi-Flex) magnesium hydroxide 400 mg/5 mL 30 ml PO DAILY PRN 04/24/22 04/24/22 History oral suspension (Milk of Magnesia) multivitamin with minerals 1 tab PO DAILY 04/24/22 04/24/22 History olopatadine 0.1 % eye drops 1 drp OPB HS 04/24/22 04/24/22 History polyethylene glycol 3350 17 17 g PO QDL PRN 04/24/22 04/24/22 History gram/dose oral powder (Miralax) sennosides 8.6 mg-docusate sodium 1 tab PO QDL PRN 04/24/22 04/24/22 History 50 mg tablet (Senokot-S) vitamin B complex 1 tab PO DAILY 04/24/22 04/24/22 History Inpatient Medication List Ascorbic Acid (Ascorbic Acid 500 Mg Tab) 500 mg PO HS [facility] Stop: 05/24/22 20:59 Last Admin: 04/25/22 20:14 Dose: 500 mg Documented by: [id number] Admin: 04/24/22 21:33 Dose: 500 mg Documented by: [id number] Aspirin (Aspirin 81 Mg Ectab) 81 mg PO DAILY [facility] Stop: 05/25/22 08:59 Last Admin: 04/26/22 08:48 Dose: 81 mg Documented by: [id number] Admin: 04/25/22 08:17 Dose: 81 mg Documented by: [id number] Atorvastatin Calcium (Atorvastatin 40 Mg Tab) 40 mg PO DAILY [facility] Stop: 05/25/22 08:59 Last Admin: 04/26/22 08:48 Dose: 40 mg Documented by: [id number] Admin: 04/25/22 08:17 Dose: 40 mg Documented by: [id number] Carbamazepine (Carbamazepine 200 Mg Tabcr) 400 mg PO Q12H [facility] Stop: 05/24/22 19:44 Last Admin: 04/26/22 08:48 Dose: 400 mg Documented by: [id number] Admin: 04/25/22 20:26 Dose: 400 mg Documented by: [id number] Admin: 04/25/22 08:17 Dose: 400 mg Documented by: [id number] Admin: 04/24/22 20:18 Dose: 400 mg Documented by: [id number] Clopidogrel Bisulfate (Clopidogrel Bisulfate 75 Mg Tab) 75 mg PO DAILY [facility] Stop: 05/25/22 08:59 Last Admin: 04/26/22 08:48 Dose: 75 mg Documented by: [id number] Admin: 04/25/22 08:18 Dose: 75 mg Documented by: [id number] Cyanocobalamin (Cyanocobalamin (B-12) 100 Mcg Tablet) 100 mcg PO QAM [facility] Stop: 05/26/22 14:29 Last Admin: 04/26/22 15:37 Dose: 100 mcg Documented by: [id number] Enoxaparin Sodium (Enoxaparin Inj 40 Mg/0.4 Ml Syr) 40 mg SQ Q24H [facility] Stop: 05/24/22 19:23 Last Admin: 07/06/22 20:15 Dose: 40 mg Documented by: [id number] Admin: 04/24/22 20:18 Dose: 40 mg Documented by: [id number] Multivitamins (Multivitamin Tab) 1 tab PO DAILY [facility] Stop: 05/25/22 08:59 Last Admin: 04/26/22 08:48 Dose: 1 tab Documented by: [id number] Admin: 04/25/22 08:18 Dose: 1 tab Documented by: [id number] Multivitamins/Minerals (Calcium 600mg + Vit D 400 Iu Tab) 1 tab PO BID [facility] Stop: 05/24/22 20:59 Last Admin: 04/26/22 08:48 Dose: 1 tab Documented by: [id number] Admin: 04/25/22 20:14 Dose: 1 tab Documented by: [id number] Admin: 04/25/22 08:17 Dose: 1 tab Documented by: [id number] Admin: 04/24/22 21:33 Dose: 1 tab Documented by: [id number] Thiamine HCl (Thiamine Hcl 100 Mg Tab) 100 mg PO QAM [facility] Stop: 05/26/22 14:29 Last Admin: 04/26/22 15:36 Dose: 100 mg Documented by: [id number] Discontinued Medications Ioversol (Optiray 320 125ml) 119 ml IV ONCE ONE Stop: 04/24/22 16:00 Last Admin: 04/24/22 15:59 Dose: 119 ml Documented by: [id number] Description This is a 21 electrode EEG with a single channel dedicated to limited EKG. The electrodes were placed in accordance with the International 10-20 system. REPORT: At the onset of the EEG, the patient is awake. The background activity consist of 9 Hz, persistent, posteriorly dominant, moderate amplitude, symmetric and rhythmic activity that is reactive to eye opening. Anteriorly there is low amplitude, symmetric and rhythmic activity. Stepwise intermittent photic stimulation does not induce any abnormalities. Drowsiness is characterized by low amplitude mixed frequency activity, roving eye movements, and decreased eye blinking and muscle artifact. Interpretation IMPRESSION: This is a normal awake and drowsy routine EEG. There is no evidence of focal slowing or epileptiform activity.
[2022-04-26] MEDS: ENOXAPARIN INJ 40 MG/0.4 ML SYR SQ SCH (20:29)
[2022-04-26] MEDS: ASCORBIC ACID 500 MG TAB PO SCH (20:29)
[2022-04-27] MEDS: THIAMINE HCL 100 MG TAB PO SCH (08:03)
[2022-04-27] MEDS: ASPIRIN 81 MG ECTAB PO SCH (08:03)
[2022-04-27] MEDS: CALCIUM 600MG + VIT D 400 IU TAB PO SCH (08:03)
[2022-04-27] MEDS: CLOPIDOGREL BISULFATE 75 MG TAB PO SCH (08:04)
[2022-04-27] MEDS: ATORVASTATIN 40 MG TAB PO SCH (08:04)
[2022-04-27] MEDS: MULTIVITAMIN TAB PO SCH (08:04)
[2022-04-27] MEDS: CYANOCOBALAMIN (B-12) 100 MCG TABLET PO SCH (08:04)
[2022-04-27] MEDS ORDERED: ADVANCED PROBIOTIC 1250 MG CAPSULE PO SCH (09:00)
--- NOTE | 2022-04-27 09:17 | Hospitalist Progress Note ---
Date of Service April 27, 2022 Assessment & Plan (1) TIA (transient ischemic attack): (2) Seizure disorder: Plan: This is a 76yo F with a PMH of seizure disorder, recent TIA on 04/21/22 who presented from [facility] with slurred speech and R sided facial droop. Patient with multiple recent admissions, starting with 04/16- admission for generalized weakness and pneumonia (completed abx on 04/23) with discharge to [facility] and then sent back to [facility] 04/21-04/23 for TIA Neurology evaluated and patient was started on dual antiplatelet therapy for 21 days and statin Unable to tolerate MRI machine due to significant claustrophobia. Transthoracic echo without intra-atrial shunt Returned on (04/24/22) with recurrent slurred speech and L sided facial droop per [facility] RN Symptoms have since resolved CT head, CTA head/neck with unchanged findings from 04/21/22 Confirmed with [facility] that patient received aspirin, plavix and statin morning of admission Discussed attempting brain MRI again with pre-medication. Patient denied and stated she is willing to try outpatient MRI if an open machine Repeating 2d echo. May consider cardiology consult if felt to be a cardioembolic cause Neurology consulted PT/OT/speech consults placed Advance diet if passes dysphagia screen 04/25/2022 neurologic deficits resolved patient cannot tolerate Brain MRI no arrhythmia on Telemetry continue ASA, Plavix, Lipitor Neurology recommends brain MRI, likely as outpatient, EEG EEG done on April 26, no evidence of focal slowing or epileptiform activity. will need outpatient Zio patch Seizure disorder Remote condition; no episode for over 15 years Continue carbamazepine, repeat levels in AM EEG obtained, results as above DVT Ppx: SQ Lovenox Code status: FULL PCP: Dr. Rodriguez Dispo: return to [facility] - will need outpatient MRI (scheduled by [facility]) - There are options that should make pt feel much less claustrophobic - such as at [facility] or [address] [place] [address]. follow-up with neurology, Zio patch, ambulatory EEG Admission and Anticipated Discharge Date Admission Date: April 24, 2022 Subjective Patient seen in follow-up for recurrent TIAs, versus partial complex seizure Currently laying in bed, in no acute distress No fevers, chills, chest pain, shortness of breath facial droop, slurred speech resolved no new focal neurologic deficits no other symptoms Patient seen by neurology, recommended MRI, however patient refuses due to claustrophobia, plan to obtain MRI as outpatient. EEG done yesterday. Review of Systems Review of Systems: All systems reviewed & are unremarkable except as noted in Subjective Physical Exam Physical Exam: General- oriented x 3, not in distress, speaks in sentences with no effort or accessory muscle use Eyes-PERRL, EOMI, anicteric Neck-supple , no JVD Lungs- clear breath sounds bilaterally, no rales/wheezes Heart- normal rate, regular rhythm; no murmurs Abdomen- normal bowel sounds, nondistended, soft, nontender Extremities- no pretibial edema, no calf tenderness Neuro- alert, oriented x 3; speech fluent, answers questions appropriately, moves extremities Skin- warm & dry Results & Data Results & Data ([facility]) Vital Signs (Past 12 Hours) Vital Signs Temp Pulse Pulse Resp BP Pulse Ox 04/27/22 08:13 36.6 C 80 18 112/71 97 04/27/22 07:10 85 04/27/22 03:23 36.7 C 75 18 95/60 L 95 04/26/22 23:28 36.7 C 93 H 18 117/74 94 04/26/22 23:00 78 Medications Administered Current Inpatient Medications Acetaminophen (Acetaminophen 325 Mg Tab) 650 mg PO Q4H PRN PRN Reason: Pain or Fever Stop: 05/24/22 19:23 Ascorbic Acid (Ascorbic Acid 500 Mg Tab) 500 mg PO HS [facility] Stop: 05/24/22 20:59 Last Admin: 04/26/22 20:29 Dose: 500 mg Documented by: Aspirin (Aspirin 81 Mg Ectab) 81 mg PO DAILY [facility] Stop: 05/25/22 08:59 Last Admin: 04/27/22 08:03 Dose: 81 mg Documented by: Atorvastatin Calcium (Atorvastatin 40 Mg Tab) 40 mg PO DAILY [facility] Stop: 05/25/22 08:59 Last Admin: 04/27/22 08:04 Dose: 40 mg Documented by: Carbamazepine (Carbamazepine 200 Mg Tabcr) 400 mg PO Q12H [facility] Stop: 05/24/22 19:44 Last Admin: 04/27/22 08:03 Dose: 400 mg Documented by: Clopidogrel Bisulfate (Clopidogrel Bisulfate 75 Mg Tab) 75 mg PO DAILY [facility] Stop: 05/25/22 08:59 Last Admin: 04/27/22 08:04 Dose: 75 mg Documented by: Cyanocobalamin (Cyanocobalamin (B-12) 100 Mcg Tablet) 100 mcg PO QAM [facility] Stop: 05/26/22 14:29 Last Admin: 04/27/22 08:04 Dose: 100 mcg Documented by: Enoxaparin Sodium (Enoxaparin Inj 40 Mg/0.4 Ml Syr) 40 mg SQ Q24H [facility] Stop: 05/24/22 19:23 Last Admin: 04/26/22 20:29 Dose: 40 mg Documented by: Lactobacillus Acidophilus (Advanced Probiotic 1250 Mg Capsule) 2 cap PO DAILY [facility] Stop: 05/27/22 08:59 Magnesium Hydroxide (Magnesium Hydroxide Susp 30 Ml Udc) 30 ml PO DAILY PRN PRN Reason: Constipation Stop: 05/24/22 19:31 Multivitamins (Multivitamin Tab) 1 tab PO DAILY [facility] Stop: 05/25/22 08:59 Last Admin: 04/27/22 08:04 Dose: 1 tab Documented by: Multivitamins/Minerals (Calcium 600mg + Vit D 400 Iu Tab) 1 tab PO BID [facility] Stop: 05/24/22 20:59 Last Admin: 04/27/22 08:03 Dose: 1 tab Documented by: Ondansetron HCl (Ondansetron Inj 2 Mg/Ml 2 Ml Vial) 4 mg IV Q6H PRN PRN Reason: Nausea Stop: 05/24/22 19:23 Polyethylene Glycol (Polyethylene (Miralax) 17 Gm Pack) 17 gm PO DAILY PRN PRN Reason: Constipation Stop: 05/24/22 19:23 Thiamine HCl (Thiamine Hcl 100 Mg Tab) 100 mg PO QAM [facility] Stop: 05/26/22 14:29 Last Admin: 04/27/22 08:03 Dose: 100 mg Documented by:
--- NOTE | 2022-04-27 09:31 | Discharge Summary ---
Date of Service April 27, 2022 Admission HPI Per Admitting Provider This is a 76yo F with a PMH of seizure disorder, recent TIA on 04/21/22 who presented from [facility] today with slurred speech and R sided facial droop. Patient with multiple recent admissions, starting with 04/16- admission for generalized weakness and pneumonia (completed abx on 04/23) with discharge to [facility]. On 04/21, patient developed slurred speech and facial droop and was readmitted to [facility] for TIA. Discharged on dual antiplatelet therapy for 21 days and statin. Evaluated by Dr. Singletary. Unable to tolerate MRI machine due to significant claustrophobia. Transthoracic echo technically limited so cannot rule out PFO per neurology note; consider repeat echo if continued events to better evaluate for cardioembolic cause. Discharged back to [facility] on 04/23 with plans for outpatient MRI. Was feeling well and able to participate in therapy today. Following lunch, patient felt more fatigued. Daughter visited and noted slurred speech again. Facility staff also concerned for possible L sided facial droop. Noted flat affect this afternoon as well, per RN. No weakness in in extremities. Sent to ER for further evaluation. Denies any fall, syncope, palpitations or chest pain. No fever, chills, headache, SOB, nausea, vomiting, abdominal pain, dysuria or constipation. Continues to have looser stool with 2 episodes today. C diff toxin negative 04/22. Remote history of seizure disorder but denies seizure in past 15 years. Daughter notes worsened LLE edema than usual today. Confirmed with [facility] that patient was given aspirin, Plavix and statin this morning. Admission Exam Per Admitting Provider NAD, well developed Card: Normal S1/S2, no murmur Lungs: CTA, no crackles or wheezing Abd: ND, NT, soft Neuro: CN II-XII intact, PERRLA, EOMI, normal motor strength MSK: b/l distal trace pitting edema of the LE Pysch: AAOx3, normal affect Principal Diagnosis Possible TIA vs partial complex seizure Discharge Exam General- oriented x 3, not in distress, speaks in sentences with no effort or accessory muscle use Eyes-PERRL, EOMI, anicteric Neck-supple , no JVD Lungs- clear breath sounds bilaterally, no rales/wheezes Heart- normal rate, regular rhythm; no murmurs Abdomen- normal bowel sounds, nondistended, soft, nontender Extremities- no pretibial edema, no calf tenderness Neuro- alert, oriented x 3; speech fluent, answers questions appropriately, moves extremities Skin- warm & dry Discharge Data Allergies Allergy/AdvReac Type Severity Reaction Status Date / Time clams Allergy Unknown ON MED LIST Verified 04/24/22 17:10 Consultations 04/24/22 17:27 ED Decision to Admit Stat 04/24/22 19:24 Consult Neurology Routine Ordered Studies 04/24/22 15:44 CT angio head w con Stat IMPRESSION: 1. 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 2. Marked atherosclerotic disease involving the A1 segment of the right anterior cerebral artery. However, there is filling of the distal branches of the anterior cerebral artery via anterior communicating artery. ADDENDUM Addendum: This study was reviewed with Dr. Singletary. No central vessel occlusion is noted. There is mild plaque within the bilateral cavernous carotids. There is no intracranial aneurysm. There is persistence of the left posterior cerebral artery. Electronically signed by: Tato Epstein M.D. 04/25/2022 3:22 PM ADDENDUM END ADDENDUM Comparison was made with the previous CTA brain from 04/21/2022. The findings are unchanged. CT angio neck with con Stat IMPRESSION:No aneurysm, dissection, high-grade stenosis or arterial occlusion. CT head/brain wo con Stat IMPRESSION: 1. No acute intracerebral pathology. Hospital Course (1) TIA (transient ischemic attack): (2) Seizure disorder: This is a 76yo F with a PMH of seizure disorder, recent TIA on 04/21/22 who presented from [facility] with slurred speech and R sided facial droop. Patient with multiple recent admissions, starting with 04/16- admission for generalized weakness and pneumonia (completed abx on 04/23) with discharge to [facility] and then sent back to [facility] 04/21-04/23 for TIA Neurology evaluated and patient was started on dual antiplatelet therapy for 21 days and statin Unable to tolerate MRI machine due to significant claustrophobia. Transthoracic echo without intra-atrial shunt Returned on (04/24/22) with recurrent slurred speech and L sided facial droop per [facility] RN Symptoms have since resolved CT head, CTA head/neck with unchanged findings from 04/21/22 Confirmed with [facility] that patient received aspirin, plavix and statin morning of admission Discussed attempting brain MRI again with pre-medication. Patient denied and stated she is willing to try outpatient MRI if an open machine Repeating 2d echo. May consider cardiology consult if felt to be a cardioembolic cause Neurology consulted PT/OT/speech consults placed Advance diet if passes dysphagia screen 04/25/2022 neurologic deficits resolved patient cannot tolerate Brain MRI no arrhythmia on Telemetry continue ASA, Plavix, Lipitor Neurology recommends brain MRI, likely as outpatient, EEG EEG done on April 26, no evidence of focal slowing or epileptiform activity. will need outpatient Zio patch Seizure disorder Remote condition; no episode for over 15 years Continue carbamazepine, repeat levels in AM EEG obtained, results as above PCP: Dr. Rodriguez Dispo: return to [facility] - will need outpatient MRI (scheduled by [facility]) - There are options that should make pt feel much less claustrophobic - such as at [facility] or [address]. follow-up with neurology, Zio patch, ambulatory EEG Total Time Total Time Spent Total Time Spent (In Minutes): 40 Discharge Plan Discharge Items Patient Disposition: Transfer Inpatient Rehab Fac Reason For Visit: STROKE EVALUATION Discharge Diagnosis: Possible TIA vs partial complex seizure Activity: Per Instructions section Non-emergency contact: Primary Care Provider and Neurologist Call non-emergency contact if: you have any medication questions and your symptoms worsen [facility] - Diet: Heart Healthy and Lactose Intolerant Addtl Attending Provider Instructions: Follow up with primary care doctor within 1 week. Follow up with neurology. Continue taking aspirin and plavix for total of 21 days, then take aspirin alone (as per previous hospital discharge instructions). You will need to obtain brain MRI as an outpatient. There are options that should make you feel much less claustrophobic - such as at [facility] or [address]. [facility] should schedule this for you. You will also need ambulatory EEG and zio patch. This will be ordered as outpatient. Pending Studies at Discharge: No Stand-Alone Forms: [facility] Skilled Items Patient informed of condition?: Yes DNR: No Discharge Level of Care: Acute rehab Communicable Disease: No Discharge Prognosis: Stable Lines: None Urinary Catheter: No Medications and DC Order Prescriptions: New Advanced Probiotic 625 mg (10 billion cell) Capsule 2 cap PO DAILY Qty: 30 RF: 0 Continued turmeric 400 mg Capsule 400 mg PO QAM RF: 0 atorvastatin 40 mg Tablet 40 mg PO DAILY RF: 0 acetaminophen [Tylenol] 325 mg Tablet 650 mg PO Q4H PRN (Reason: Pain (Scale Score 1-3)) RF: 0 sennosides-docusate sodium [Senokot-S] 8.6-50 mg Tablet 1 tab PO QDL PRN (Reason: Constipation) RF: 0 clopidogrel [Plavix] 75 mg Tablet 75 mg PO DAILY RF: 0 aspirin 81 mg Tablet,Delayed Release (Dr/Ec) 81 mg PO DAILY RF: 0 carbamazepine 400 mg tablet extended release 12 hr 400 mg PO Q12H RF: 0 magnesium hydroxide [Milk of Magnesia] 400 mg/5 mL Suspension 30 ml PO DAILY PRN (Reason: Constipation) RF: 0 ascorbic acid (vitamin C) [Vitamin C] 500 mg Tablet 500 mg PO HS RF: 0 olopatadine 0.1 % Drops 1 drp OPB HS RF: 0 docusate sodium 100 mg Capsule 100 mg PO BID RF: 0 vitamin B complex Tablet 1 tab PO DAILY RF: 0 multivitamin with minerals Tablet 1 tab PO DAILY RF: 0 polyethylene glycol 3350 [Miralax] 17 gram/dose Powder 17 g PO QDL PRN (Reason: Constipation) RF: 0 enoxaparin [Lovenox] 40 mg/0.4 mL Syringe 40 mg SUBCUT QPM RF: 0 glucosamine-chondroitin [Osteo Bi-Flex] 250-200 mg Tablet 1 tab PO BID RF: 0 calcium carbonate-vitamin D3 [Calcium 500 + D] 500 mg-5 mcg (200 unit) Tablet 1 tab PO BID RF: 0 Discharge Orders: Discharge Order (Routine); Ordered 04/27/22 Ordered By: Enzo Owusu Admission Data Admit Date/Time: 04/24/22 17:42 Attending Provider: Enzo Owusu Admit Provider: Latrell Baez Primary Care Provider: [facility] Other Providers: Latrell Baez ; Thu Singletary ; Adelfo Ferreira
== END 2022-04-27 13:55 | DRG 69 ==
LOC: ED 15:52 → MERGE 15:52 → SUATTDRO 17:42 → 2S 17:42

== ENCOUNTER 2023-06-28 07:29 | Observation (INO) ==
--- NOTE | 2023-05-20 10:52 | PAT Medication Instructions ---
Medication Instructions Date of Service May 20, 2023 Home Medications turmeric 400 mg capsule 400 mg PO QAM acetaminophen 325 mg tablet (Tylenol) 650 mg PO Q4H PRN ascorbic acid (vitamin C) 500 mg tablet (Vitamin C) 500 mg PO HS aspirin 81 mg tablet,delayed release 81 mg PO QAM calcium carbonate 500 mg-vitamin D3 5 mcg (200 unit) tablet (Calcium 500 + D) 1 tab PO BID carbamazepine 400 mg tablet,extended release,12 hr 400 mg PO Q12H docusate sodium 100 mg capsule 100 mg PO BID PRN glucosamine-chondroitin 250 mg-200 mg tablet (Osteo Bi-Flex) 1 tab PO BID magnesium hydroxide 400 mg/5 mL oral suspension (Milk of Magnesia) 30 ml PO DAILY PRN multivitamin with minerals 1 tab PO QDL olopatadine 0.1 % eye drops 1 drp OPB HS polyethylene glycol 3350 17 gram/dose oral powder (Miralax) 17 g PO QDL PRN sennosides 8.6 mg-docusate sodium 50 mg tablet (Senokot-S) 1 tab PO QDL PRN vitamin B complex 1 tab PO QDL L.acidop,casei,lactis,rham-B.lact,marcelle 625 mg (10 billion cell) capsule (Advanced Probiotic) 2 cap PO PM escitalopram oxalate 10 mg tablet 10 mg PO HS methimazole 5 mg tablet 5 mg PO QAM STOP taking 2 weeks before surgery (or as soon as possible if surgery is within 2 weeks) turmeric 400 mg capsule 400 mg PO QAM glucosamine-chondroitin 250 mg-200 mg tablet (Osteo Bi-Flex) 1 tab PO BID DO NOT take the morning of surgery polyethylene glycol 3350 17 gram/dose oral powder (Miralax) 17 g PO QDL PRN sennosides 8.6 mg-docusate sodium 50 mg tablet (Senokot-S) 1 tab PO QDL PRN vitamin B complex 1 tab PO QDL magnesium hydroxide 400 mg/5 mL oral suspension (Milk of Magnesia) 30 ml PO DAILY PRN multivitamin with minerals 1 tab PO QDL docusate sodium 100 mg capsule 100 mg PO BID PRN calcium carbonate 500 mg-vitamin D3 5 mcg (200 unit) tablet (Calcium 500 + D) 1 tab PO BID Take morning of surgery With a small sip of water, OTHERWISE NOTHING TO EAT OR DRINK AFTER MIDNIGHT: methimazole 5 mg tablet 5 mg PO QAM carbamazepine 400 mg tablet,extended release,12 hr 400 mg PO Q12H aspirin 81 mg tablet,delayed release 81 mg PO QAM (unless directed otherwise by surgeon) acetaminophen 325 mg tablet (Tylenol) 650 mg PO Q4H PRN(if needed) Take evening before surgery L.acidop,casei,lactis,rham-B.lact,marcelle 625 mg (10 billion cell) capsule (Advanced Probiotic) 2 cap PO PM escitalopram oxalate 10 mg tablet 10 mg PO HS olopatadine 0.1 % eye drops 1 drp OPB HS carbamazepine 400 mg tablet,extended release,12 hr 400 mg PO Q12H calcium carbonate 500 mg-vitamin D3 5 mcg (200 unit) tablet (Calcium 500 + D) 1 tab PO BID ascorbic acid (vitamin C) 500 mg tablet (Vitamin C) 500 mg PO HS acetaminophen 325 mg tablet (Tylenol) 650 mg PO Q4H PRN(if needed) Other Notes If you have any questions please call us at [phone] or [phone] or [phone] or [phone]
--- NOTE | 2023-05-27 13:25 | Anesthesiology Consultation ---
Date of Service May 27, 2023 Assessment & Plan (1) Encounter for pre-operative examination: - COVID screening: Per assessment on 05/27: No known COVID-19 positive contacts or current COVID-19 related symptoms. No recent Covid positive test result. - Outpatient joint assessment: Pt currently scheduled for inpatient pathway. If surgeon requests review for outpatient joint pathway, patient is not recommended candidate for outpatient joint program from anesthesia standpoint. - S/P Laparoscopic Cholecystectomy (08/06/19): Grade 1 view, MAC#3, ETT 7.0, atraumatic Chart Review Chart Review: Acceptable Risk for Surgery and Patient seen in Pre Admission Testing Teaching & Discussion Pre-Anesthesia Teaching/Discussion Notes: Instructed NPO after midnight before surgery,except medications with 15 cc of water. Medication instructions provided according to the PAT guidelines. History Surgery Operation Date: 06/28/23 09:20 Proposed Procedures p Left Total Knee Arthroplasty - Lopez Alfonso, DO Height/Weight Height: 5 ft 2 in Weight: 69.9 kg Allergies Allergy/AdvReac Type Severity Reaction Status Date / Time clams Allergy Unknown Dyspepsia, Verified 05/27/23 13:30 abdominal pain Medications Home Medications Medication Instructions Recorded Confirmed Last Taken turmeric 400 mg capsule 400 mg PO QAM 07/24/19 05/17/23 03/22/21 acetaminophen 325 mg tablet 650 mg PO Q4H PRN Pain (Scale 04/24/22 05/17/23 Unknown (Tylenol) Score 1-3) ascorbic acid (vitamin C) 500 mg 500 mg PO HS 04/24/22 05/17/23 04/23/22 tablet (Vitamin C) aspirin 81 mg tablet,delayed 81 mg PO QAM 04/24/22 05/17/23 04/24/22 release calcium carbonate 500 mg-vitamin 1 tab PO BID 04/24/22 05/17/23 04/24/22 08:00 D3 5 mcg (200 unit) tablet (Calcium 500 + D) carbamazepine 400 mg 400 mg PO Q12H 04/24/22 05/17/23 04/24/22 08:00 tablet,extended release,12 hr docusate sodium 100 mg capsule 100 mg PO BID PRN Constipation 04/24/22 05/17/23 04/24/22 08:00 glucosamine-chondroitin 250 mg-200 1 tab PO BID 04/24/22 05/17/23 04/24/22 08:00 mg tablet (Osteo Bi-Flex) magnesium hydroxide 400 mg/5 mL 30 ml PO DAILY PRN Constipation 04/24/22 Unknown oral suspension (Milk of Magnesia) multivitamin with minerals 1 tab PO QDL 04/24/22 05/17/23 04/24/22 olopatadine 0.1 % eye drops 1 drp OPB HS 04/24/22 05/17/23 04/23/22 polyethylene glycol 3350 17 17 g PO QDL PRN Constipation 04/24/22 05/17/23 Unknown gram/dose oral powder (Miralax) sennosides 8.6 mg-docusate sodium 1 tab PO QDL PRN Constipation 04/24/22 05/17/23 Unknown 50 mg tablet (Senokot-S) vitamin B complex 1 tab PO QDL 04/24/22 05/17/23 04/24/22 L.acidop,casei,lactis,rham-B.lact,marcelle 2 cap PO PM 05/17/23 05/17/23 Unknown 625 mg (10 billion cell) capsule (Advanced Probiotic) escitalopram oxalate 10 mg tablet 10 mg PO HS 05/17/23 05/17/23 Unknown methimazole 5 mg tablet 5 mg PO QAM 05/17/23 05/17/23 Unknown Past Medical History Medical History Anxiety Arthritis Diverticular disease Glaucoma B/L Hiatal hernia Hx of basal cell carcinoma s/p excision Hx of compression fracture of spine 2017, "mid back" > "healed" Hyperthyroidism Taking Methimazole Multinodular goiter Osteoarthritis Osteoporosis Seizure disorder Hx epilepsy, no seizure x several years TIA (transient ischemic attack) 04/2022, possible TIA (testing "inconclusive") Exercise / Class Metabolic Activity III < 4 Walking/Shop/Light housework (uses walker PRN) Past Family History Family History Daughter Breast cancer Past Surgical History Surgical History History of colonoscopy History of elbow surgery Right History of tonsillectomy History of tooth extraction Hx laparoscopic cholecystectomy Laparoscopic Cholecystectomy (08/06/19): Grade 1 view, MAC#3, ETT 7.0, atraumatic Hx of basal cell carcinoma excision Hx of cataract surgery R/L Past Anesthesia History Other (Slow to wake) Cousin- "slow to wake" History of PONV No Hx of PONV and Hx of Motion Sickness (Situational) Social History Smoking Status: Never smoker Do You Dip or Chew Tobacco: No Hx Alcohol Use: Yes Alcohol type: wine alcohol intake frequency: holidays/special occasions only Hx Substance Use: No substance use type: does not use Review of Systems Patient denies chest pain, shortness of breath, fever, chills, cough, wheezing, palpitations. Physical Exam Vital Signs VITALS BP 123/82 P 89 TEMP 97.9 SP02 96%RA RESP 16 PHYSICAL Mildly decreased cervical extension range of motion. Full TMJ range of motion. TMD 3.5 finger breaths Mallampati Score 2 Dentition: missing molars Lungs: clear throughout to auscultation Cardiac: regular rate and rhythm, no murmurs noted Spine: normal Carotid arteries: negative bruit Extremities: no LE edema Lab Results Anesthesia Preop Results Results Anesthesia Widget: WBC 7.70 K/ul (4.8-10.8) 05/27/23 Hgb 14.4 g/dl (12.0-16.0) 05/27/23 Hct 40.7 % (37.0-47.0) 05/27/23 Plt 256 K/uL (130-400) 05/27/23 Na 139 mmol/L (136-145) 05/27/23 K 4.0 mmol/L (3.5-5.1) 05/27/23 Cl 106 mmol/L (98-107) 05/27/23 CO2 26 mmol/L (21-32) 05/27/23 BUN 21 mg/dl (6-23) 05/27/23 Creat 0.58 mg/dl (0.6-1.2) L 05/27/23 Glucose Level 94 mg/dl (70-99(Fasting)) 05/27/23 PT 10.4 Seconds (9.0-12.0) 05/27/23 PTT 26.5 Seconds (21.0-31.0) 05/27/23 INR 0.9 (0.9-1.1) 05/27/23 TSH 1.292 uIu/ml (0.300-4.500) 05/27/23 Free T4 0.74 ng/dl (0.61-1.60) 05/27/23 Blood Type O Positive 05/27/23 Antibody Screen NEGATIVE 05/27/23 Testing Electrocardiogram Date: 11/08/22 NSR at 81bpm. iRBBB. No significant change compared to 07/17/22 per branch controller comparison. Chest X-Ray Date: 11/08/22 FINDINGS: 2 AP, portable, upright chest radiographs are compared to study dated 07/17/2022 and correlated with chest CT dated 07/09/2019. The examination is degraded by portable technique and patient rotation. There is a large hiatal hernia. The cardiac silhouette is partially obscured. The pulmonary vasculature is noncongested. Chronic interstitial thickening as in the previous. Scarring/atelectasis is seen at the lung bases. No airspace consolidation or large pleural effusion is identified. No pneumothorax is seen. The skeletal structures are osteopenic. There are healed right-sided rib fractures. IMPRESSION: No acute cardiopulmonary abnormality. Large hiatal hernia. Echocardiogram Date: 04/25/22 EF 60-65%. LV wall motion is normal. Grade I DD. No significant valvular disease. Mild cLVH. Addendum: bubble study obtained and reassessed- felt to be technically adequate, with intact interatrial septum. Other Testing Neck CTA Date: 04/24/22 FINDINGS: Three-vessel morphology of the thoracic aortic arch. There is patency of the innominate and imaged subclavian arteries. The common carotid arteries are patent. There is mild atherosclerotic plaque of the carotid bulbs without significant stenosis. Additional atherosclerosis of the cavernous, and clinoid segments without high-grade stenosis. Codominant and patent vertebral arteries. The basilar artery is patent. origin of the left posterior cerebral artery. No aneurysm, dissection, high-grade stenosis or arterial occlusion. No pneumothorax. Multinodular thyroid goiter with superior mediastinal extension. Rightward deviation of the airway and esophagus. Multilevel degenerative changes of the cervical spine. IMPRESSION:No aneurysm, dissection, high-grade stenosis or arterial occlusion. Heads CT Date: 03/21/23 No acute intracranial hemorrhage, no evidence of acute territorial infarction or other acute intracranial disease process.
--- NOTE | 2023-06-28 06:26 | History & Physical Report ---
Date of Service June 28, 2023 Assessment & Plan (1) Osteoarthritis of left knee: We will proceed with a left total knee arthroplasty. Postoperatively she will be started on aspirin for DVT prophylaxis and kept overnight in the hospital for postop medical management. She plans to use energy physical therapy upon discharge. History of Present Illness Chief Complaint: Osteoarthritis of the left knee. Primary Care Provider: Elvia Rodriguez MD Malinda is a pleasant 77-year-old female, who has been dealing with chronic increasing left knee pain. She uses a rolling walker. Her left knee constantly gives out on her. She has been seeing my partner, Dr. Blum. She has had cortisone injection with viscosupplementation. Unfortunately, she is still str uggling with the pain. X-rays and clinical examination been diagnostic for lateral compartment arthritis. After failing conservative treatment, she has elected proceed with a left total knee arthroplasty. Allergies Allergy/AdvReac Type Severity Reaction Status Date / Time clams Allergy Unknown Dyspepsia, Verified 05/27/23 13:30 abdominal pain Home Medications Medication Instructions Recorded Confirmed Type turmeric 400 mg capsule 400 mg PO QAM 07/24/19 05/17/23 History acetaminophen 325 mg tablet 650 mg PO Q4H PRN Pain (Scale 04/24/22 05/17/23 History (Tylenol) Score 1-3) ascorbic acid (vitamin C) 500 mg 500 mg PO HS 04/24/22 05/17/23 History tablet (Vitamin C) aspirin 81 mg tablet,delayed 81 mg PO QAM 04/24/22 05/17/23 History release calcium carbonate 500 mg-vitamin 1 tab PO BID 04/24/22 05/17/23 History D3 5 mcg (200 unit) tablet (Calcium 500 + D) carbamazepine 400 mg 400 mg PO Q12H 04/24/22 05/17/23 History tablet,extended release,12 hr docusate sodium 100 mg capsule 100 mg PO BID PRN Constipation 04/24/22 05/17/23 History glucosamine-chondroitin 250 mg-200 1 tab PO BID 04/24/22 05/17/23 History mg tablet (Osteo Bi-Flex) magnesium hydroxide 400 mg/5 mL 30 ml PO DAILY PRN Constipation 04/24/22 05/17/23 History oral suspension (Milk of Magnesia) multivitamin with minerals 1 tab PO QDL 04/24/22 05/17/23 History olopatadine 0.1 % eye drops 1 drp OPB HS 04/24/22 05/17/23 History polyethylene glycol 3350 17 17 g PO QDL PRN Constipation 04/24/22 05/17/23 History gram/dose oral powder (Miralax) sennosides 8.6 mg-docusate sodium 1 tab PO QDL PRN Constipation 04/24/22 05/17/23 History 50 mg tablet (Senokot-S) vitamin B complex 1 tab PO QDL 04/24/22 05/17/23 History L.acidop,casei,lactis,rham-B.lact,marcelle 2 cap PO PM 05/17/23 05/17/23 History 625 mg (10 billion cell) capsule (Advanced Probiotic) escitalopram oxalate 10 mg tablet 10 mg PO HS 05/17/23 05/17/23 History methimazole 5 mg tablet 5 mg PO QAM 05/17/23 05/17/23 History Past Med/Surg History Medical History Anxiety Arthritis Diverticular disease Glaucoma B/L Hiatal hernia Hx of basal cell carcinoma s/p excision Hx of compression fracture of spine 2017, "mid back" > "healed" Hyperthyroidism Taking Methimazole Multinodular goiter Osteoarthritis Osteoporosis Seizure disorder Hx epilepsy, no seizure x several years TIA (transient ischemic attack) 04/2022, possible TIA (testing "inconclusive") Surgical History History of colonoscopy History of elbow surgery Right History of tonsillectomy History of tooth extraction Hx laparoscopic cholecystectomy Laparoscopic Cholecystectomy (08/06/19): Grade 1 view, MAC#3, ETT 7.0, atraumatic Hx of basal cell carcinoma excision Hx of cataract surgery R/L Family History Daughter Breast cancer Social History Smoking Status: Never smoker Second Hand Exposure: Yes (as child); Do You Dip or Chew Tobacco: No; Tobacco Cessation Education Requested by Patient: No Hx Alcohol Use: Yes Alcohol type: wine Hx Substance Use: No Preferred Language: Hungarian Communication Ability: Effective Water Fitness Instructor Required: No Beliefs That Will Affect Care: None marital status: Current Living Situation: Alone Current Living Situation Comment: Lives alone in apartment in half-way community in [place] current occupational status: retired How many Children do You have: 1 Other Information That Helps Us Care for You: No Feels Safe at Home: Yes Safety Concerns: Feels Safe At This Time Assistive Devices: Cane, Glasses and Walker Review of Systems All systems reviewed & are unremarkable except as noted in HPI & below. Physical Exam On physical examination left knee, she has a slight valgus deformity. She has tenderness palpation of the lateral femoral condyle and over the lateral joint line.. Constitutional WD/WN, vitals as above Eyes PERRL, conjunctivae normal, anicteric sclerae ENMT external ear and nose normal, oropharynx normal Neck trachea midline, no thyromegaly Respiratory normal respiratory effort, lungs clear to auscultation Cardiovascular RRR, no murmur, no edema Gastrointestinal (Abdomen) normal bowel sounds, soft, nontender, no hepatosplenomegaly Skin no rashes, warm and dry Psychiatric A+Ox3, euthymic affect Results & Data Results & Data Laboratory Results . Diagnostic Findings X-rays of the left knee show advanced osteoarthritis with joint space narrowing, osteophyte formation, and [id number] reticulation.. PG Care Time/CCT Total # of Minutes Spent Total Time Spent with Patient: Total time spent is greater than 50% in coordination of care (as documented) at patient's floor/unit and/or counseling patient: Coding Level of Care Code None Diagnoses Osteoarthritis of left knee M17.12
[~2023-06-28 07:29] MED LIST changes: +ACETAMINOPHEN 500 MG TAB PO SCH; -ATROPINE SULFATE 0.1 MG/ML 10ML SYR IV ONE; +BUPIVACAINE 0.25% PF 30 ML VIAL ONE; +BUPIVACAINE 0.5 % 5 MG/1 ML PF 10ML VIAL ONE; +DEXAMETHASONE SOD INJ 4 MG/ML VIAL ONE; +EPINEPHrine INJ 1 MG/ML AMP ONE; +FAMOTIDINE 20 MG TAB PO SCH; +GABAPENTIN 300 MG CAP PO SCH; +LR 500ML BOLUS, THEN 15ML/HR IV SCH; +LR 60ML/HR IV SCH; +ORTHO JOINT MIX INFIL SCH; +TRANEXAMIC ACID 1,000 MG **IV Intra-op IV SCH; +TRANEXAMIC ACID 1,000 MG **IV Pre-op IV SCH; +ceFAZolin 2000MG 2,000 MG/15 ML SYR IV SCH; +dexAMETHasone 4 MG TAB PO SCH
[2023-06-28] MEDS ORDERED: ePHEDrine sulfate 50 MG/ML AMP IV PRN (08:26)
[2023-06-28] MEDS ORDERED: ONDANSETRON INJ 2 MG/ML 2 ML VIAL IV PRN ×2 (08:26→12:11)
[2023-06-28] MEDS ORDERED: ATROPINE SULFATE 0.1 MG/ML 10ML SYR IV PRN (08:26)
[2023-06-28] MEDS ORDERED: PROMETHAZINE HCL 6.25 MG in SODIUM CHLORIDE 0.9% 50 ML IV PRN (08:26)
[2023-06-28] MEDS ORDERED: fentaNYL citrate PF 100 MCG/2 ML VIAL IV PRN (08:26)
--- NOTE | 2023-06-28 08:37 | Anesthesiology Consultation ---
Date of Service June 28, 2023 Assessment & Plan Chart Review Chart Review: Acceptable Risk for Surgery and Patient NOT seen in Pre Admission Testing Consults Requested none ASA ASA2 Proposed Anesthesia Anesthesia Type: MAC Spinal Regional Regional Laterality: Left Site: Adductor Canal Risk / Benefits Reviewed With: PT / POA / Parent / Guardian, Accepts Plan and Informed Consent Obtained History Surgery Operation Date: 06/28/23 09:00 Proposed Procedures p Left Total Knee Arthroplasty - Lopez Alfonso, DO Height/Weight Height: 5 ft 2 in Weight: 68.039 kg Allergies Allergy/AdvReac Type Severity Reaction Status Date / Time clams Allergy Unknown Dyspepsia, Verified 06/28/23 07:59 abdominal pain Medications Home Medications Medication Instructions Recorded Confirmed Last Taken turmeric 400 mg capsule 400 mg PO QAM 07/24/19 06/28/23 06/14/23 acetaminophen 325 mg tablet 650 mg PO Q4H PRN Pain (Scale 04/24/22 06/28/23 06/28/23 06:15 (Tylenol) Score 1-3) ascorbic acid (vitamin C) 500 mg 500 mg PO HS 04/24/22 06/28/23 06/21/23 tablet (Vitamin C) aspirin 81 mg tablet,delayed 81 mg PO QAM 04/24/22 06/28/23 06/28/23 06:15 release calcium carbonate 500 mg-vitamin 1 tab PO BID 04/24/22 06/28/23 06/27/23 21:00 D3 5 mcg (200 unit) tablet (Calcium 500 + D) carbamazepine 400 mg 400 mg PO Q12H 04/24/22 06/28/23 06/28/23 06:15 tablet,extended release,12 hr docusate sodium 100 mg capsule 100 mg PO BID PRN Constipation 04/24/22 06/28/23 04/24/22 08:00 glucosamine-chondroitin 250 mg-200 1 tab PO BID 04/24/22 06/28/23 06/14/23 mg tablet (Osteo Bi-Flex) magnesium hydroxide 400 mg/5 mL 30 ml PO DAILY PRN Constipation 04/24/22 06/28/23 Unknown oral suspension (Milk of Magnesia) multivitamin with minerals 1 tab PO QDL 04/24/22 06/28/23 06/27/23 12:00 olopatadine 0.1 % eye drops 1 drp OPB DAILY 04/24/22 06/28/23 06/26/23 08:00 polyethylene glycol 3350 17 17 g PO QDL PRN Constipation 04/24/22 06/28/23 Unknown gram/dose oral powder (Miralax) sennosides 8.6 mg-docusate sodium 1 tab PO QDL PRN Constipation 04/24/22 06/28/23 Unknown 50 mg tablet (Senokot-S) vitamin B complex 1 tab PO QDL 04/24/22 06/28/23 06/27/23 12:00 L.acidop,casei,lactis,rham-B.lact,marcelle 2 cap PO PM 05/17/23 06/28/23 06/27/23 21:00 625 mg (10 billion cell) capsule (Advanced Probiotic) escitalopram oxalate 10 mg tablet 10 mg PO HS 05/17/23 06/28/23 06/27/23 21:00 methimazole 5 mg tablet 5 mg PO QAM 05/17/23 06/28/23 06/28/23 06:15 Active Medications Generic Name Dose Route Start Last Admin Trade Name Freq PRN Reason Stop Dose Admin Acetaminophen 1,000 mg 06/28/23 06:00 06/28/23 08:15 Acetaminophen 500 Mg Tab PO 06/28/23 18:00 1,000 mg PREOP JUAN FRANCISCO Administration Dexamethasone 8 mg 06/28/23 06:00 06/28/23 08:15 Dexamethasone 4 Mg Tab PO 06/28/23 18:00 8 mg PREOP JUAN FRANCISCO Administration Famotidine 20 mg 06/28/23 06:00 06/28/23 08:15 Famotidine 20 Mg Tab PO 06/28/23 18:00 20 mg PREOP JUAN FRANCISCO Administration Gabapentin 300 mg 06/28/23 06:00 06/28/23 08:15 Gabapentin 300 Mg Cap PO 06/28/23 18:00 300 mg PREOP JUAN FRANCISCO Administration Lactated Ringer's 1,000 mls @ 15 mls/hr 06/28/23 06:00 06/28/23 08:16 Lr IV 06/28/23 18:00 15 mls/hr .Q24H JUAN FRANCISCO Administration Lactated Ringer's 1,000 mls @ 60 mls/hr 06/28/23 06:00 06/28/23 08:09 Lr IV 06/28/23 22:39 Not Given .[id number] JUAN FRANCISCO Past Medical History Medical History Anxiety Arthritis Diverticular disease Glaucoma B/L Hiatal hernia Hx of basal cell carcinoma s/p excision Hx of compression fracture of spine 2017, "mid back" > "healed" Hyperthyroidism Taking Methimazole Multinodular goiter Osteoarthritis Osteoporosis Seizure disorder Hx epilepsy, no seizure x several years TIA (transient ischemic attack) 04/2022, possible TIA (testing "inconclusive") Past Family History Family History Daughter Breast cancer Past Surgical History Surgical History History of colonoscopy History of elbow surgery Right History of tonsillectomy History of tooth extraction Hx laparoscopic cholecystectomy Laparoscopic Cholecystectomy (08/06/19): Grade 1 view, MAC#3, ETT 7.0, atraumatic Hx of basal cell carcinoma excision Hx of cataract surgery R/L Past Anesthesia History Cousin- "slow to wake" Social History Smoking Status: Never smoker Do You Dip or Chew Tobacco: No Hx Alcohol Use: Yes Alcohol type: wine alcohol intake frequency: holidays/special occasions only Hx Substance Use: No substance use type: does not use Physical Exam Vital Signs Last Vital Signs Temp 36.5 C 06/28/23 07:56 Pulse 86 06/28/23 07:56 Resp 18 06/28/23 07:56 BP 133/76 06/28/23 07:56 Pulse Ox 94 06/28/23 07:56 O2 Del Method Room Air 06/28/23 08:20 Testing Electrocardiogram Date: 11/08/22 NSR at 81bpm. iRBBB. No significant change compared to 07/17/22 per embroidery machine operator comparison. Chest X-Ray Date: 11/08/22 FINDINGS: 2 AP, portable, upright chest radiographs are compared to study dated 07/17/2022 and correlated with chest CT dated 07/09/2019. The examination is degraded by portable technique and patient rotation. There is a large hiatal hernia. The cardiac silhouette is partially obscured. The pulmonary vasculature is noncongested. Chronic interstitial thickening as in the previous. Scarring/atelectasis is seen at the lung bases. No airspace consolidation or large pleural effusion is identified. No pneumothorax is seen. The skeletal structures are osteopenic. There are healed right-sided rib fractures. IMPRESSION: No acute cardiopulmonary abnormality. Large hiatal hernia. Echocardiogram Date: 04/25/22 EF 60-65%. LV wall motion is normal. Grade I DD. No significant valvular disease. Mild cLVH. Addendum: bubble study obtained and reassessed- felt to be technically adequate, with intact interatrial septum. Other Testing Neck CTA Date: 04/24/22 FINDINGS: Three-vessel morphology of the thoracic aortic arch. There is patency of the innominate and imaged subclavian arteries. The common carotid arteries are patent. There is mild atherosclerotic plaque of the carotid bulbs without si gnificant stenosis. Additional atherosclerosis of the cavernous, and clinoid segments without high-grade stenosis. Codominant and patent vertebral arteries. The basilar artery is patent. origin of the left posterior cerebral artery. No aneurysm, dissection, high-grade stenosis or arterial occlusion. No pneumothorax. Multinodular thyroid goiter with superior mediastinal extension. Rightward deviation of the airway and esophagus. Multilevel degenerative changes of the cervical spine. IMPRESSION:No aneurysm, dissection, high-grade stenosis or arterial occlusion. Heads CT Date: 03/21/23 No acute intracranial hemorrhage, no evidence of acute territorial infarction or other acute intracranial disease process.
[2023-06-28] MEDS ORDERED: ORTHO JOINT ANESTHETIC ONE (08:46)
[2023-06-28] MEDS ORDERED: fentaNYL citrate PF 100 MCG/2 ML VIAL ONE (08:47)
[2023-06-28] MEDS ORDERED: ONDANSETRON INJ 2 MG/ML 2 ML VIAL ONE (08:47)
[2023-06-28] MEDS ORDERED: MIDAZOLAM HCL 1 MG/ML 2ML VIAL ONE (08:47)
[2023-06-28] MEDS ORDERED: PROPOFOL IV EMULSION 10 MG/ML 20 ML VIAL IV ONE (08:47)
[2023-06-28] MEDS ORDERED: LIDOCAINE 2% 2 ML VIAL/AMP(20MG/ML) INFIL ONE (09:58)
--- NOTE | 2023-06-28 10:32 | Operative Report ---
PG Post Operative Report Pre & Post Diagnosis Operation Date: 06/28/23 09:00 Pre-Op Diagnosis: Left Knee Degenerative Joint Disease Post-Op Diagnosis: Left Knee Degenerative Joint Disease I identified the patient and participated in the time-out.: Yes Procedure Operation Date: 06/28/23 09:00 Actual Procedures p Left Total Knee Arthroplasty(Left) - Lopez Alfonso DO Surgeon Lopez Alfonso DO Freight Unloader Lopez Alvarez PA-C Estimated Blood Loss 30 Findings Consistent with Post-Op Diagnosis Specimens Left femoral tibial bone Description of Procedure Implants used: I used a Yuridia Persona total knee arthroplasty system with a size 7 femur, D tibia, 31 oval patella, and a size 11 medial congruent polyethylene bearing. All components were cemented in place with Biomet cement. Malinda arrived [facility] for the above procedure. She was seen in the preoperative holding area and the operative extremity was identified and signed. She was given a preoperative antibiotic, TXA, a spinal anesthetic and an adductor nerve block. She was taken back to the operating room and laid on the table in supine position. She was given basic sedation. The operative knee was then prepped and draped in sterile fashion. A timeout was done, and the patient and the operative extremity was properly identified. A midline incision was made directly over the patella. Dissection was taken down to the extensor mechanism. A midvastus arthrotomy was used. The medial retinaculum was released and the fat pad was mostly excised. The knee was flexed and the ACL, PCL, and meniscus were removed. A drill was sent down the center of the femoral canal followed by an intramedullary matty. Off that matty a distal femoral cutting block was placed. 9 mm was resected off the distal femur at 5 of valgus. A posterior referencing AP sizing guide was then placed on the distal femur. The femur measured to be a size 7. 2 drill holes were placed in 3 of external rotation. A 4-in-1 cutting block was then impacted into place. Anterior, posterior, and chamfer cuts were then made. The proximal tibia was then exposed. An external tibial alignment guide was placed. A tibial cut guide was then anchored in place and the proximal tibia was then resected. The posterior aspect of the knee was then opened up and any additional meniscus fragments and osteophytes were removed. The tibia measured to be a size D. The tibial plate was then placed in the appropriate rotation and the tibia was drilled and punched. Trial components were then placed. I used a size 11 medial congruent polyethylene insert. The knee was brought through a full range of motion and felt to be stable. The peg holes for the femoral component were then drilled. The patella was then everted and 9 mm was resected off the posterior aspect of the patella. The patella measured to be a size 31 oval. 3 peg holes were then drilled. A trial patella was placed. The knee was once again brought through a full range of motion and felt to be stable. Trial components were then removed. The surrounding soft tissues were injected with 100 cc of an orthopedic pain control cocktail. All components were then cemented into place with Biomet cement. The final polyethylene insert was then snapped into place. Once cement was dry the tourniquet was deflated. Hemostasis was obtained. A dilute betadyne lavage was then done for 3 minutes. The joint was then irrigated with normal saline solution. The midvastus arthrotomy was then closed with #1 Vicryl suture. The skin was closed with 2-0 Vicryl, 3-0V lock suture, and maya. A soft compressive dressing was placed. She was then transferred to a hospital bed and taken to the postanesthesia care unit in stable condition. She tolerated the procedure well. Lopez Alvarez PA-C, was present for the entire procedure. He was critical for patient positioning, prepping, draping, retraction exposure, wound closure and application of sterile dressing. I attest to the content of the Intraoperative Record and any orders documented therein. Any exceptions are noted below.
--- NOTE | 2023-06-28 11:24 | XRay Report ---
XR knee LT 1 or 2V routine HISTORY: 78 years-old Female Surgical Post Op left knee arthroplasty COMPARISON: 01/05/2022 TECHNIQUE: 2 views of the left knee FINDINGS: Total joint arthroplasty with patellar resurfacing. Anterior midline skin maya with expected posto perative soft tissue swelling and deep tissue air. No acute fracture, dislocation or unexpected opaqu e foreign body. IMPRESSION: Total joint arthroplasty with expected postoperative changes. ACT 112: Negative or not required by law. The above report was generated using voice recognition software. It may contain grammatical, syntax o r spelling errors. Electronically signed by: Sulaiman Torres M.D. 06/28/2023 11:23 AM
--- NOTE | 2023-06-28 11:46 | Anesthesiology Progress Note ---
Date of Service June 28, 2023 Anesthesia Post Procedure Vital Signs Vital Signs: Temp Pulse Resp BP Pulse Ox O2 Del Method O2 Flow Rate 06/28/23 11:30 79 14 115/58 L 97 Room Air 06/28/23 11:20 36.5 C 76 15 118/68 96 Room Air 06/28/23 11:10 76 14 122/64 97 Room Air 06/28/23 11:00 81 15 108/75 100 Oxymask 5 06/28/23 10:54 36.5 C 82 15 112/68 96 Oxymask 5 06/28/23 08:20 Room Air 06/28/23 07:56 36.5 C 86 18 133/76 94 Room Air Transfer of Care Handoff Completed per policy Notes Mental Status: alert / awake / arousable Patient Amnestic to Procedure: Yes Nausea / Vomiting: adequately controlled Pain: adequately controlled Airway Patency, RR, SpO2: stable & adequate BP & HR: stable & adequate Hydration State: stable & adequate Anesthetic Complications: no major complications apparent
[2023-06-28] MEDS ORDERED: METOCLOPRAMIDE HCL INJ 5 MG/ML 2 ML VIAL IV PRN (12:11)
[2023-06-28] MEDS ORDERED: NALOXONE HCL 0.4 MG/1 ML VIAL/CARP IV PRN (12:11)
[2023-06-28] MEDS ORDERED: bisacodyL 10 MG SUPP PR PRN (12:11)
[2023-06-28] MEDS ORDERED: HYDROmorphone INJ 0.5 MG/0.5 ML SYR IV PRN (12:11)
[2023-06-28] MEDS ORDERED: MAGNESIUM HYDROXIDE SUSP 30 ML UDC PO PRN (12:11)
[2023-06-28] MEDS: SODIUM CHLORIDE 0.9% 1,000 ML IV SCH ×2 (12:27→22:06)
[2023-06-28] MEDS: KETOROLAC TROMETHAMINE 15 MG/ML VIAL IV SCH ×2 (13:59→18:41)
[2023-06-28] MEDS: ACETAMINOPHEN 500 MG TAB PO SCH ×2 (15:55→22:03)
[2023-06-28] MEDS: ceFAZolin 2000MG 2,000 MG/15 ML SYR IV SCH (17:34)
[2023-06-28] MEDS: oxyCODONE HCL IR 5 MG TAB (IMMEDIATE RELEASE) PO PRN (20:17)
[2023-06-28] MEDS: ASPIRIN 81 MG ECTAB PO SCH (20:18)
[2023-06-28] MEDS: ESCITALOPRAM OXALATE 10 MG TAB PO SCH (20:18)
[2023-06-28] MEDS: SENNA 8.6 MG TAB PO SCH (20:19)
[2023-06-28] MEDS: DOCUSATE SODIUM 100 MG CAP PO SCH (20:19)
[2023-06-29] MEDS: ceFAZolin 2000MG 2,000 MG/15 ML SYR IV SCH (00:03)
[2023-06-29] MEDS: KETOROLAC TROMETHAMINE 15 MG/ML VIAL IV SCH ×4 (00:03→19:55)
[2023-06-29] MEDS: oxyCODONE HCL IR 5 MG TAB (IMMEDIATE RELEASE) PO PRN (05:59)
[2023-06-29] MEDS: ACETAMINOPHEN 500 MG TAB PO SCH ×3 (06:00→21:23)
[2023-06-29] MEDS ORDERED: dexAMETHasone 4 MG TAB PO SCH (08:00)
[2023-06-29] MEDS: ASPIRIN 81 MG ECTAB PO SCH ×2 (08:25→20:22)
[2023-06-29] MEDS: methIMAzole 5 MG TABLET PO SCH (08:25)
[2023-06-29] MEDS: DOCUSATE SODIUM 100 MG CAP PO SCH ×2 (08:25→20:22)
[2023-06-29] MEDS: MULTIVITAMIN TAB PO SCH (08:25)
--- NOTE | 2023-06-29 08:41 | Orthopedic Progress Note ---
Date of Service June 29, 2023 Assessment & Plan (1) Status post left knee replacement: Overall she is doing very well. She is having some moderate pain in the left knee. She will be seen by physical therapy today for ambulation and range of motion exercises. We will see how she does. I spoke to the nurse. I placed the discharge instructions. If she does well today with therapy and would like to go home that she can be discharged today, however, if she is slow with therapy and remains hypotensive we can keep her another day. She is on aspirin for DVT prophylaxis. Flakita Petty was seen and examined at bedside this morning. Overall she is doing very well. She is not having too much pain in the left knee. She was little bit hypotensive. She has been up and using the bathroom. She has no new complaints.. Review of Systems All systems reviewed & are unremarkable except as noted in HPI & below. Physical Exam On physical examination of the left knee, the dressing is clean and dry. Her leg is out full extension. She has active dorsiflexion plantarflexion of her left ankle.. Results & Data Results & Data Laboratory Results . Diagnostic Findings Postoperative x-rays of the left knee show the prosthesis to be in anatomic alignment without any evidence of fracture, dislocation, or loosening.. PG Care Time/CCT Total # of Minutes Spent Total Time Spent with Patient: Total time spent is greater than 50% in coordination of care (as documented) at patient's floor/unit and/or counseling patient: Coding Level of Care Code 15460 Post Operative Follow-Up Diagnoses Status post left knee replacement Z96.652
[2023-06-29] MEDS: SENNA 8.6 MG TAB PO SCH (20:23)
[2023-06-29] MEDS: ESCITALOPRAM OXALATE 10 MG TAB PO SCH (20:23)
[2023-06-30] MEDS: KETOROLAC TROMETHAMINE 15 MG/ML VIAL IV SCH ×2 (01:39→06:11)
[2023-06-30] MEDS: ACETAMINOPHEN 500 MG TAB PO SCH ×3 (06:11→21:57)
--- NOTE | 2023-06-30 06:49 | Orthopedic Progress Note ---
Date of Service June 30, 2023 Assessment & Plan (1) Status post left knee replacement: We will see how she does throughout the day today. She was hypotensive and looking rather pale when I entered the room. She is complaining of pain in the left knee. She participated with physical therapy yesterday but tired easily. We will get some blood work today. I do want to keep her today and just make sure she is more stable on her feet before we consider discharge to home. If the blood work looks okay and if she does better today with therapy then we will plan discharge to home tomorrow. She is currently on aspirin for DVT prophylaxis. Flakita Petty was seen and examined at bedside this morning. She is complaining of some pain in the left knee. She had a hypotensive episode this morning where she felt very faint. Her blood pressure has been a little bit erratic but mostly low. She was able to participate some with physical therapy yesterday. She has no new complaints.. Review of Systems All systems reviewed & are unremarkable except as noted in HPI & below. Physical Exam On physical examination of left knee, the dressing has been changed. Her leg is out full extension. She has active dorsiflexion plantarflexion of her left ankle.. Results & Data Results & Data Laboratory Results . Diagnostic Findings . PG Care Time/CCT Total # of Minutes Spent Total Time Spent with Patient: Total time spent is greater than 50% in coordination of care (as documented) at patient's floor/unit and/or counseling patient: Coding Level of Care Code 93089 Post Operative Follow-Up Diagnoses Status post left knee replacement Z96.652
[2023-06-30 08:24] LABS: Basophils # (auto) 0.04 K/uL (0.00-0.20); Basophils % (auto) 0.3 %; Eosinophils # (auto) 0.25 K/uL (0.00-0.50); Hematocrit (blood only) 33.9 % (37.0-47.0); Hemoglobin 11.8 g/dl (12.0-16.0); Immature Granulocytes # (auto) 0.05 K/uL (0.01-0.20); Immature Granulocytes % (auto) 0.4 %; Lymphocytes # (auto) 1.82 K/uL (1.20-3.40); Lymphocytes % (auto) 14.2 %; Mean Corpuscular Hemoglobin 32.3 pg (25.0-34.0); Mean Corpuscular Hgb Conc 34.8 g/dL (32.0-36.0); Mean Corpuscular Volume 92.9 fL (80.0-100.0); Monocytes # (auto) 1.73 K/uL (0.11-0.59); Monocytes % (auto) 13.5 %; Neutrophils % (auto) 69.6 %; Platelet Count 183 K/uL (130-400); RDW Coefficient of Variation 12.4 % (11.5-14.5); RDW Standard Deviation 42.8 fL (36.4-46.3); Red Blood Count 3.65 M/uL (4.20-5.40); White Blood Count 12.79 K/ul (4.8-10.8)
[2023-06-30 08:25] LABS: Albumin Globulin Ratio 1.6 (0.9-2); Albumin Level 3.4 gm/dl (3.4-5.0); BUN Creatinine Ratio 36.4 (10-20); Bilirubin,Total 0.5 mg/dl (0.2-1.0); Calcium 7.7 mg/dl (8.6-10.3); Creatinine Clr Calc Pharmacy 98.4 ml/min; Est GFR (African American) 113.6 ml/min; Est GFR (Non-African American) 98.1 ml/min; Globulin 2.1 gm/dl (2.5-4.0); Potassium 3.8 mmol/L (3.5-5.1); Total Protein 5.5 gm/dl (6.0-8.3)
[2023-06-30] MEDS: methIMAzole 5 MG TABLET PO SCH (08:40)
[2023-06-30] MEDS: MULTIVITAMIN TAB PO SCH (08:40)
[2023-06-30] MEDS: ASPIRIN 81 MG ECTAB PO SCH ×2 (08:41→21:56)
[2023-06-30] MEDS: DOCUSATE SODIUM 100 MG CAP PO SCH ×2 (08:41→21:56)
[2023-06-30] MEDS: SENNA 8.6 MG TAB PO SCH (21:56)
[2023-06-30] MEDS: ESCITALOPRAM OXALATE 10 MG TAB PO SCH (21:56)
[2023-07-01] MEDS: ACETAMINOPHEN 500 MG TAB PO SCH ×2 (05:55→14:56)
[2023-07-01] MEDS: MULTIVITAMIN TAB PO SCH (09:34)
[2023-07-01] MEDS: methIMAzole 5 MG TABLET PO SCH (09:34)
[2023-07-01] MEDS: ASPIRIN 81 MG ECTAB PO SCH (09:34)
[2023-07-01] MEDS: DOCUSATE SODIUM 100 MG CAP PO SCH (09:35)
[2023-07-01] MEDS: oxyCODONE HCL IR 5 MG TAB (IMMEDIATE RELEASE) PO PRN (11:32)
--- NOTE | 2023-07-01 13:49 | Orthopedic Progress Note ---
Date of Service July 01, 2023 Assessment & Plan (1) Status post left knee replacement: Her knee is doing fairly well but she is still fairly tired. We will see how she does today with physical therapy. She can be discharged home later today if she is doing okay, however, if she is not then she would need to be discharged to a rehab facility. She is currently on aspirin for DVT prophylaxis. Flakita Petty was seen and examined at bedside this morning. She is still complaining of some pain and some difficulty with therapy. She just has poor endurance and is tired a lot. Her blood pressure is more stable today.. Review of Systems All systems reviewed & are unremarkable except as noted in HPI & below. Physical Exam On physical examination left knee, the dressing is clean and dry. Her leg is out full extension. She has active dorsiflexion plantarflexion of her left ankle.. Results & Data Results & Data Laboratory Results . Diagnostic Findings . PG Care Time/CCT Total # of Minutes Spent Total Time Spent with Patient: Total time spent is greater than 50% in coordination of care (as documented) at patient's floor/unit and/or counseling patient: Coding Level of Care Code 03860 Post Operative Follow-Up Diagnoses Status post left knee replacement Z96.652
--- NOTE | 2023-07-02 07:19 | Discharge Summary ---
Date of Service July 02, 2023 Admission HPI (Per Admitting) Malinda is a pleasant 77-year-old female, who has been dealing with chronic increasing left knee pain. She uses a rolling walker. Her left knee constantly gives out on her. She has been seeing my partner, Dr. Blum. She has had cortisone injection with viscosupplementation. Unfortunately, she is still struggling with the pain. X-rays and clinical examination been diagnostic for lateral compartment arthritis. After failing conservative treatment, she has elected proceed with a left total knee arthroplasty. Admission Exam (Per Admitting) On physical examination left knee, she has a slight valgus deformity. She has tenderness palpation of the lateral femoral condyle and over the lateral joint line.. Principal Diagnosis Same as "Discharge Diagnosis" noted below under Discharge Instructions. Discharge Exam On physical examination left knee, the dressing is clean and dry. Her leg is out full extension. She has active dorsiflexion plantarflexion of her left ankle.. Discharge Data Procedures Performed Operation Date: 06/28/23 09:00 Actual Procedures p Left Total Knee Arthroplasty(Left) - Lopez Alfonso DO Ordered Studies 06/28/23 05:00 US - OR guided needle placemen Routine Hospital Course (1) Status post left knee replacement: On June 28, 2023 Malinda arrived at [facility] and underwent a left knee replacement without complication. She had a spinal anesthetic. Postoperatively she was started on aspirin for DVT prophylaxis and transferred to the general orthopedic floors. On postop day #1 she was a little bit hypotensive. She was slow to work with physical therapy. She was having increased pain in her left knee and we decided to keep her in the hospital. On postop day #2, she was still having difficulty with her blood pressures. Her CBC was in the expected postoperative range. She was able to participate with physical therapy but she tired easily once again. On postop day #3, she was feeling a little bit better. She tired easily with physical therapy in the morning but she did much better in the afternoon. Her daughter came to see her. She was then discharged to her daughter's house. She will follow-up with orthopedics in 2 weeks. PG Care Time/CCT Total # of Minutes Spent Total Time Spent with Patient: Total time spent is greater than 50% in coordination of care (as documented) at patient's floor/unit and/or counseling patient: Discharge Plan Discharge Items Patient Disposition: Home - Home Health Services Reason For Visit: Left Knee Degenerative Joint Disease Discharge Diagnosis: Osteoarthritis of the left knee Activity: Per Instructions section Non-emergency contact: Surgeon Call non-emergency contact if: your wound has increased redness and your wound has increased drainage Follow-up/Referrals: Elvia Rodriguez MD [Primary Care Provider] - Diet: Regular Addtl Attending Provider Instructions: Activity and Therapy Recommendations: * If you are using [facility] then therapy will be provided at your home until they feel you have accomplished all of your goals. * If you are using [facility] then Physical Therapy will be provided until they feel you are ready to start Outpatient Physical Therapy. * If you are not using home therapy then Outpatient Physical Therapy should start about 3-5 days from your day of surgery. Therapy will last about 6-10 weeks * It is important not to put a pillow under your knee when you are relaxing or sleeping. It is just as important to make sure you are getting your knee perfectly straight as it is to regain your knee bend. * You were shown a series of exercises in the hospital. Do these exercises three times each day including the exercises you were shown in physical therapy. * Get up and walk several times each day. For the first four weeks, try not to stand or walk for more than one hour at a time. If you do stand or walk for more than one hour, you will not hurt anything, but your leg will likely swell. * As you feel comfortable, you may change from the walker or crutches to a cane and then to independent walking. Medications: * Narcotic You will likely be sent home from the hospital with a prescription for the narcotic pain medication that worked best throughout your stay. * Aspirin Most patients will be required to take Aspirin 81mg twice a day for 6 weeks after surgery. This is obtained [id number] and a prescription is not necessary. * Other medications may be prescribed for specific circumstances. If you have any questions, please call the office at . * Resume previous home medications unless otherwise instructed TEDs/Elastic Stockings: The white elastic stockings help limit swelling and prevent blood clots from forming in your legs.~ The more you wear them, the more they work. Wear them for six weeks. Dressing Care: The dressing can be changed after physical therapy on postop day #1. Daily dry dressing changes for a few days, especially if the incision is still draining some. If the incision is not draining then you may leave the maya open to air. If there is a little bit of drainage or if the maya are getting stuck on your clothing then cover the incision with a dry dressing. The maya will be removed at your 2 week follow-up appointment. Showering: You may shower 5 days from the day of surgery as long as the incision is no longer draining. You may shower with the maya exposed. Let soapy water run over the maya and pat them dry. Do not scrub or soak the incision. Things To Watch For: * Drainage from the incision site that occurs more than one week after your surgery. * Increased redness at the incision site. * Fever above 102 degrees Fahrenheit. * Unusual chest pain or shortness of breath. * Call [facility] at with any of the above problems Follow-Up Visit: Follow-up with Dr. Alfonso's PA (Lopez Alvarez) 2-3 weeks after your day of surgery . He will remove your maya and answer any questions. If you have any additional questions or concerns, Dr Alfonso is usually in the office at the same time and will be available An appointment was probably scheduled when you signed-up for surgery in the office. If you have any questions call Office Instructions: More detailed instructions as well as Frequently Asked Questions were provided in a folder by our office when you signed-up for surgery. Please review these instructions when you get home. If you have any further questions or concerns, please feel free to call the office at [phone] Pending Studies at Discharge: No Stand-Alone Forms: My [facility] [employer], Smoking Cessation Medications and DC Order Prescriptions: New tramadol 50 mg tablet 50 mg PO Q6H PRN (Reason: pain) Qty: 30 0RF Continued turmeric 400 mg Capsule 400 mg PO QAM methimazole 5 mg Tablet 5 mg PO QAM escitalopram oxalate 10 mg Tablet 10 mg PO HS Advanced Probiotic 625 mg (10 billion cell) capsule 2 cap PO PM acetaminophen [Tylenol] 325 mg Tablet 650 mg PO Q4H PRN (Reason: Pain (Scale Score 1-3)) sennosides-docusate sodium [Senokot-S] 8.6-50 mg Tablet 1 tab PO QDL PRN (Reason: Constipation) carbamazepine 400 mg tablet extended release 12 hr 400 mg PO Q12H magnesium hydroxide [Milk of Magnesia] 400 mg/5 mL Suspension 30 ml PO DAILY PRN (Reason: Constipation) ascorbic acid (vitamin C) [Vitamin C] 500 mg Tablet 500 mg PO HS olopatadine 0.1 % Drops 1 drp OPB DAILY docusate sodium 100 mg Capsule 100 mg PO BID PRN (Reason: Constipation) vitamin B complex Tablet 1 tab PO QDL multivitamin with minerals Tablet 1 tab PO QDL polyethylene glycol 3350 [Miralax] 17 gram/dose Powder 17 g PO QDL PRN (Reason: Constipation) glucosamine-chondroitin [Osteo Bi-Flex] 250-200 mg Tablet 1 tab PO BID calcium carbonate-vitamin D3 [Calcium 500 + D] 500 mg-5 mcg (200 unit) Tablet 1 tab PO BID Changed aspirin 81 mg Tablet,Delayed Release (Dr/Ec) 81 mg PO BID 42 Days Qty: 0 0RF Krames/Other Patient Handouts: Total Knee Replacement, Tips After Knee Surgery, Knee Replace Home Recovery, Knee Replace 1st Month, Knee Replace Control Swelling Admission Data Admit Date/Time: 06/28/23 10:57 Attending Provider: Lopez Alfonso Admit Provider: Lopez Alfonso Primary Care Provider: Elvia Rodriguez Other Interventions: Discharge Summary Assessment (RN) Last Done: 07/01/23 14:00
== END 2023-07-01 16:59 | disposition home health service (06) ==
LOC: 3E 07:29 → ASU 07:29 → 3N 06-30 22:48
DX: M17.12 Unilateral primary osteoarthritis, left knee; Z79.899 Other long term (current) drug therapy; Z91.013 Allergy to seafood; Z79.82 Long term (current) use of aspirin

== ENCOUNTER 2024-06-06 20:59 | Inpatient (IN) ==
--- OUTSIDE RECORDS SUMMARY | 2024-06-06 21:04 | External Medical Summary | Summary of Care ---
Author Name Unknown Organization [facility] Address [address] [place] [address] Phone [phone] Care Team Providers Care Guest Services Ambassador Name Role Phone Krystle Rodriguez MD Primary Care Provider + Reason for Visit * Reason Comments eRx-Medication Refill Encounter Details Date Type Department Care Team (Late st Contact Info) Description 06/01/2024 Refill General Internal Medicine [facility] [address] [facility] [place] [id number] Krystle Rodriguez MD [address] [place] [id number] Other generalized epilepsy, not intractable, without status epilepticus (HCC) Allergies Active Allergy Reactions Criticality Noted Date Comments Bee Venom Edema Other 02/18/2017 "itching, red, swelling, but only at the place where I got stung" Clam Shell Diarrhea 04/24/2022 Pollen 08/14/2022 Unsure exactly what, but has some sort of seasonal allergy documented as of this encounter (statuses as of 06/02/2024) Medications Medication Sig Dispensed Refills Start Date End Date Status Multiple Vitamins-Minerals (MULTIVITAMIN WOMEN 50+) TABS Take 1 Tab by mouth daily. Active vitamin b-complex/vitamin C (THERAPEUTIC B COMPLEX W/C) TABS Take 1 Tablet by mouth in the morning. Active Turmeric 500 MG Capsule Take 1 Capsule by mouth in the morning. Active Misc Natural Products (OSTEO BI-FLEX ADV JOINT SHIELD) Tablet Take 1 Tab by mouth daily. Active Calcium Carbonate-Vitamin D 600-200 MG-UNIT Oral Tablet Take 1 Tablet by mouth in the morning. Active lactobacillus rhamnosus, GG, (CULTURELLE) Capsule Take 1 Cap by mouth 2 times a day. 30 Cap 10/30/2018 Active Ascorbic Acid (VITAMIN C) 100 MG Tablet Take 1 Tablet by mouth in the morning. Active zoster vac recomb adjuvanted (SHINGRIX) 50 MCG/0.5ML injectionIndicati ons:Need for vaccination for zoster Inject 0.5 mL into a large muscle now and repeat dose in 60 to 180 days 1 Each 1 06/16/2020 Active Aspirin 81 MG Oral Tablet Chewable Take 1 Tablet by mouth in the morning. Active Latanoprost 0.005 % Ophthalmic Emulsion Instill 1 Drop into the right eye at bedtime. 09/04/2023 Active Triamcinolone Acetonide 0.1 % External Lotion (Aristocort)Indic ations:Psoriasis apply topically to affected areas on scalp daily. after 2 weeks use several times a week as needed 60 mL 12/03/2023 Active methIMAzole 5 MG Oral Tablet (Tapazole) TAKE 1 TABLET BY MOUTH EVERY MORNING 90 Tablet 1 12/10/2023 Active Escitalopram Oxalate 10 MG Oral Tablet (Lexapro)Indicati ons:NAVIN (generalized anxiety disorder),Current moderate episode of major depressive disorder, unspecified whether recurrent (HCC) TAKE 1 TABLET BY MOUTH EVERY MORNING 90 Tablet 1 02/20/2024 Active carBAMazepine ER 400 MG Oral Tablet Extended Release 12 Hour (Tegretol-Xr)Coleen cations:Other generalized epilepsy, not intractable, without status epilepticus (HCC) TAKE 1 TABLET BY MOUTH TWICE DAILY 60 Tablet 06/02/2024 Active carBAMazepine ER 400 MG Oral Tablet Extended Release 12 Hour (Tegretol-Xr)Coleen cations:Other generalized epilepsy, not intractable, without status epilepticus (HCC) Take 1 Tablet by mouth 2 times a day. 60 Tablet 11 05/20/2023 4 Discontinued documented as of this encounter (statuses as of 06/02/2024) Active Problems Problem Noted Date Diagnosed Date Major depressive disorder, single episode, moder ate 10/29/2022 Other generalized epilepsy a nd epileptic syndromes, not intractable, without status epilepticus 10/29/2022 History of TIA (transient ischemic attack) 10/29 Psoriasis 08/10/2021 Age-related osteoporosis wit hout current pathological fracture 04/17/2021 Neuropathy 07/01/2019 Multinodular goiter (nontoxic) 07/01/2019 NAVIN (generalized anxiety disorder) 07/01/2019 Osteoarthritis of both knees 04/07/2019 Leukocytosis 10/28/2018 documented as of this encounter (statuses as of 06/02/2024) Resolved Problems Problem Noted Date Diagnosed Date Resolved Date Epilepsy 04/07/2019 10/29/2022 Senile osteoporosis 04/07/2019 10/29/19 23 documented as of this encounter (statuses as of 06/02/2024) Immunizations Name Administration Dates Next Due COVID-19 mRNA, LNP-s, No Pre serve, 2-Dose Series (Moderna) 12/18/2020,11/13/2020 COVID-19, mRNA, LNP-s, PF, B ooster, 100mcg/0.5mg (Moderna) 09/18/2021 Pneumococcal Conjugate Vacc, 13 Valent (Prevnar) 06/11/2019 Pneumococcal Polysaccharide PPV23 (Pneumovax) 06/16/2020 Seasonal Influenza Virus Vac cine, Unspecified Formulation 07/24/2021,06/16/2020,07/17/2019,07/10,07/26/2017 Seasonal Influenza, PF, 6 M & above, IM , (FluLaval or Fluzone) 06/16/2020 Seasonal Influenza, Quadriva lent Hd (Fluzone Hd) 08/14/2022,07/24/2021 Seasonal Influenza, Trivalen t, Adjuvanted, 65+ yrs 07/17/2019 TDAP (age 10 and older)(Boostrix) 07/01/2019 documented as of this encounter Social History Tobacco Use Types Packs/Day Years Used Date Smoking Tobacco: Never Smokeless Tobacco: Never Alcohol Use Standard Drinks/Week Comments Yes 0 (1 standard drink = 0.6 oz pur e alcohol) "once in a blue roblero" AUDIT-C Answer Date Recorded Frequency of Alcohol Consumption Not on file 04/07/2019 Average Number of Drinks Not on file 019 Frequency of Binge Drinking Less than monthly PHQ-2 Answer Date Recorded PHQ Adult Total Score 7 08/21/2022 Hunger Vital Sign Answer Date Recorded Within the past 12 months, y ou worried that your food would run out before you got the money to buy more. Never true 09/13/20 20 Within the past 12 months, t he food you bought just didn't last and you didn't have money to get more. Never true 09/13/2020 Sex and Gender Information Value Date Recorded Sex Assigned at Female 06/11/2019 8:41 AM EDT Gender Identity Female 06/11/2019 8:41 AM EDT Sexual Orientation Straight 06/11/2019 8: 41 AM EDT Job Start Date Occupation Industry Not on file Not on file Not on file documented as of this encounter Functional Status Functional Status Response Date of Assess ment Are you deaf or do you have serious difficulty h earing? No 10/28/2018 Are you blind or do you have serious difficulty seeing, even when wearing glasses? No 10/28/2018 Do you have serious difficul ty walking or climbing stairs? (5 years old or older) Yes 10/28/2018 Do you have difficulty dress ing or bathing? (5 years old or older) No 10/28/2018 Because of a physical, menta l, or emotional condition, do you have difficulty doing errands alone such as visiting a doctor s office or shopping? (15 years old or older) No 10/28/19 19 Cognitive Status Response Date of Assessm ent Because of a physical, menta l, or emotional condition, do you have serious difficulty concentrating, remembering, or making decisions? (5 years old or older) No 10/28/2018 documented as of this encounter Miscellaneous Notes * Telephone Encounter - Krystle Rodriguez MD - 06/02/2024 12:29 PM EDT Signed Prescriptions: Disp Refills carBAMazepine ER 400 MG Oral Tablet Extend*60 Tab*0 Sig: TAKE 1 TABLET BY MOUTH TWICE DAILY Authorizing Provider: KRYSTLE RODRIGUEZ * Telephone Encounter - Angela Resendiz LPN - 06/02/2024 8:41 AM EDTPending Prescriptions: Disp Refills carBAMazepine ER 400 MG Oral Tablet Extend*60 Tab*0 Sig: TAKE 1 TABLET BY MOUTH TWICE DAILY * Telephone Encounter - Rose Crawley - 06/01/2024 7:14 PM EDTPending Prescriptions: Disp Refills carBAMazepine ER 400 MG Oral Tablet Extend*60 Tab*0 Sig: TAKE 1TABLET BY MOUTH TWICE DAILY documented in this encounter Plan of Treatment Scheduled Procedures Name Priority Associated Diagnoses Date/Ti me COLONOSCOPY FLEXIBLE PROXIMA L DIAGNOSTIC Recall Special screening for malignant neoplasms, colon Health Maintenance Due Date Last Done Comments Zoster Vaccines (1 of 2) 1997 Adult Wellness Visit 2013 Depression Monitoring 08/21/2023 08/21/2022 *BISPHONATE OR OTHER ACCEPTABLE MEDICATION NEEDED FOR OSTEOPOROSIS (REFER TO SMARTSET #1146) 11/21/2023 COVID-19 Vaccine (2022- season) 2023 07/27/2023, 09/18/2021, 12/18/2020, Additional history exists Influenza Vaccine (FLU shot) (#1) 2024 07/27/2023, 08/14/2022, 07/24/2021, Additional history exists DXA Scan 11/26/2024 11/26/2022, 03/2023, 11/22/2020, Additional history exists DTaP,Tdap,and Td Vaccines (2 - Td or Tdap) 07/01/2029 07/01/2019 Colonoscopy Discontinued 12/07/2011 Colorectal Cancer Screening Discontinued VITAMIN D LEVEL ONCE IN A LIFETIME-USE SMARTSET# 91960 Completed 05/21/2019 Pneumococcal Vaccine: 65+ Years Completed 06/16/2020, 06/11/2019 Cologuard Discontinued Fecal Occult Blood Test Discontinued HPV (Gardasil) Vaccine Aged Out No lo nger eligible based on patient's age to complete this topic Hepatitis B Vaccine Aged Out No longe r eligible based on patient's age to complete this topic MENINGOCOCCAL (MENACTRA/MENVEO) Aged Out No longer eligible based on patient's age to complete this topic Sigmoidoscopy Discontinued documented as of this encounter Medical Devices Implanted Type Area Stabilizer Operator Device Identifier Shelf Expiration Date Model / Serial / Lot Iol Implanted:Qty: 1 on 06/30/2020 by Shaheen De Souza MD at OR [facility] Left: Eye 12/18/2024 [id number] / [id number] / Lens Intraoc 18.0 - [id number] - [id number] Implanted:Qty: 1 on 07/14/2020 by Shaheen De Souza MD at OR [facility] Right: Eye [employer]CH [employer]OMB 02/17/2025 [id number] / [id number] / documented as of this encounter Visit Diagnoses Diagnosis Other generalized epilepsy, not intractable, without status epilepticus (HCC) documented in this encounter Advance Directives * Full Code (Latest Code Status on File) Date Activated Date Inactivated Comments 10/28/2018 9:41 AM 10/30/2018 10:33 PM This order r eflects the patients wishes and were consensually agreed upon. Question Answer Comments Discussion of Advance Directives occurred with: Patient Does the patient have a Living Will? No Does the patient have Health Care Power of Attor lesly? No * Full Code Date Activated Date Inactivated Comments 10/06/2018 7:27 AM 10/09/2018 6:57 PM This order reflects the patients wishes and were consensually agreed upon. POA daughter Angeles Neely Question Answer Comments Discussion of Advance Direct lisa occurred with: Patient Does the patient have a Living Will? Yes, not cu rrently available Does the patient have Health Care Power of Chemical Detection Expert? Yes, in chart and reviewed as current * Full Code Date Activated Date Inactivated Comments 09/18/2018 5:56 PM 09/20/2018 4:51 PM This order reflects the patients wishes and were consensually agreed upon. Question Answer Comments Discussion of Advance Directives occurred with: Patient Does the patient have a Living Will? Yes, not cu rrently available * Full Code Date Activated Date Inactivated Comments 02/18/2017 6:54 PM 02/20/2017 5:31 PM This order ref lects the patients wishes and were consensually agreed upon. Question Answer Comments Discussion of Advance Directives occurred with: Patient Does the patient have a Living Will? No Does the patient have Health Care Power of Attor lesly? No Care Teams Guest Services Ambassador Relationship Specialty Start Date End Date Krystle Rodriguez MD [address] [place] [address] PCP - General Internal Medicine 06/11/19 documented as of this encounter
--- OUTSIDE RECORDS SUMMARY | 2024-06-06 21:04 | External Medical Summary | Summary of Care ---
Author Name Unknown Organization [facility] Address [address] [place] [address] Phone [phone] Care Team Providers Care Payroll Professional Name Role Phone Krystle Rodriguez MD Primary Care Provider + Reason for Visit * Reason Comments eRx-Medication Refill Encounter Details Date Type Department Care Team (Late st Contact Info) Description 12/09/2023 Refill General Internal Medicine [facility] [address] [place] [address] Krystle Rodriguez MD [address] [facility] [place] [address] Allergies Active Allergy Reactions Criticality Noted Date Comments Bee Venom Edema Other 02/18/2017 "itching, red, swelling, but only at the place where I got stung" Clam Shell Diarrhea 04/24/2022 Pollen 08/14/2022 Unsure exactly what, but has some sort of seasonal allergy documented as of this encounter (statuses as of 12/10/2023) Medications Medication Sig Dispensed Refills Start Date End Date Status Multiple Vitamins-Minerals (MULTIVITAMIN WOMEN 50+) TABS Take 1 Tab by mouth daily. 0 Active vitamin b-complex/vitamin C (THERAPEUTIC B COMPLEX W/C) TABS Take 1 Tablet by mouth in the morning. 0 Active Turmeric 500 MG Capsule Take 1 Capsule by mouth in the morning. 0 Active Misc Natural Products (OSTEO BI-FLEX ADV JOINT SHIELD) Tablet Take 1 Tab by mouth daily. 0 Active Calcium Carbonate-Vitamin D 600-200 MG-UNIT Oral Tablet Take 1 Tablet by mouth in the morning. 0 Active lactobacillus rhamnosus, GG, (CULTURELLE) Capsule Take 1 Cap by mouth 2 times a day. 30 Cap 0 10/30/2018 Active Ascorbic Acid (VITAMIN C) 100 MG Tablet Take 1 Tablet by mouth in the morning. 0 Active zoster vac recomb adjuvanted (SHINGRIX) 50 MCG/0.5ML injectionIndicati ons:Need for vaccination for zoster Inject 0.5 mL into a large muscle now and repeat dose in 60 to 180 days 1 Each 1 06/16/2020 Active Aspirin 81 MG Oral Tablet Chewable Take 1 Tablet by mouth in the morning. 0 Active carBAMazepine ER 400 MG Oral Tablet Extended Release 12 Hour (Tegretol-Xr)Coleen cations:Other generalized epilepsy, not intractable, without status epilepticus (HCC) Take 1 Tablet by mouth 2 times a day. 60 Tablet 11 05/20/2023 Active Escitalopram Oxalate 10 MG Oral Tablet (Lexapro)Indicati ons:NAVIN (generalized anxiety disorder),Current moderate episode of major depressive disorder, unspecified whether recurrent (HCC) TAKE 1 TABLET BY MOUTH EVERY MORNING 90 Tablet 1 08/23/2023 Active Latanoprost 0.005 % Ophthalmic Emulsion Instill 1 Drop into the right eye at bedtime. 0 09/04/2023 Active Triamcinolone Acetonide 0.1 % External Lotion (Aristocort)Indic ations:Psoriasis apply topically to affected areas on scalp daily. after 2 weeks use several times a week as needed 60 mL 0 12/03/2023 Active methIMAzole 5 MG Oral Tablet (Tapazole) TAKE 1 TABLET BY MOUTH EVERY MORNING 90 Tablet 1 12/10/2023 Active methIMAzole 5 MG Oral Tablet (Tapazole) TAKE 1 TABLET BY MOUTH EVERY MORNING 90 Tablet 0 09/16/2023 4 Discontinued documented as of this encounter (statuses as of 12/10/2023) Active Problems Problem Noted Date Diagnosed Date [...] as of this encounter (statuses as of 12/10/2023) Resolved Problems Problem Noted Date Diagnosed Date Resolved Date Epilepsy 04/07/2019 10/29/2022 Senile osteoporosis 04/07/2019 10/29/19 23 documented as of this encounter (statuses as of 12/10/2023) Immunizations Name Administration Dates Next Due COVID-19 [...] encounter Miscellaneous Notes * Telephone Encounter - Bhumika Pinto RPh - 12/10/2023 10:07 AM EST Signed Prescriptions: Disp Refills methIMAzole 5 MG Oral Tablet (Tapazole) 90 Tab*1 Sig: TAKE 1 TABLET BY MOUTH EVERY MORNINGAuthorizing Provider: KRYSTLE RODRIGUEZ User: [email or web address] PITNO documented in this encounter Plan of Treatment Upcoming Encounters Date Type Department Care Team (Late st Contact Info) Description 01/14/2024 4:00 PM EDT Office Visit Rheumatology [facility] [address] [place] [address] Lopez Loyola MD [address] [place] [address] 06/02/2024 4:30 PM EDT Office Visit [facility] [address] [facility] [place] [address] Jenny Nicole PA-C [address] [facility] [place] [address] Scheduled Procedures Name Priority Associated Diagnoses Date/Ti me COLONOSCOPY FLEXIBLE PROXIMA L DIAGNOSTIC Recall Special screening for malignant neoplasms, colon Health Maintenance Due Date Last Done Comments Zoster Vaccines (1 of 2) 1997 COVID-19 Vaccine ( season) 2023 09/18/2021, 12/18/2020, 11/13/2020 Influenza Vaccine (FLU shot) (#1) 2023 08/14/2022, 07/24/2021, 07/24/2021, Additional history exists Depression Screening 08/21/2023 08/21/2022 *BISPHONATE OR OTHER ACCEPTABLE MEDICATION NEEDED FOR OSTEOPOROSIS (REFER TO SMARTSET #1146) 11/21/2023 DXA Scan 11/26/2024 11/26/2022, 03/2023, 11/22/2020, Additional history exists DTaP,Tdap,and Td Vaccines (2 - Td or Tdap) 07/01/2029 07/01/2019 Colonoscopy Discontinued 12/07/2011 Colorectal Cancer Screening Discontinued VITAMIN D LEVEL ONCE IN A LIFETIME-USE SMARTSET# 24124 Completed 05/21/2019 Pneumococcal Vaccine: 65+ Years Completed 06/16/2020, 06/11/2019 Cologuard Discontinued Fecal Occult Blood Test Discontinued GARDASIL-HPV IMMUNIZATION SERIES Aged Out No longer eligible based on patient's age to complete this topic Hepatitis B Aged Out No longer eligi ble based on patient's age to complete this topic MENINGOCOCCAL (MENACTRA/MENVEO) Aged Out No longer eligible based on patient's age to complete this topic Sigmoidoscopy Discontinued documented as of this encounter Medical Devices Implanted Type Area Cotton Picker Operator Device Identifier Shelf Expiration Date Model / Serial / Lot Iol Implanted:Qty: 1 on 06/30/2020 by Shaheen De Souza MD at OR [facility] Left: Eye 12/18/2024 [id number] / [id number] / Lens Intraoc 18.0 - [id number] - [id number] Implanted:Qty: 1 on 07/14/2020 by Shaheen De Souza MD at OR [facility] Right: Eye [employer] 02/17/2025 [id number] / [id number] / documented as of this encounter Advance Directives Latest Code Status on File Code Status Date Activated Date Inactivated Comments Full Code 10/28/2018 9:41 AM 10/30/2018 10:33 PM This order reflects the patients wishes and were consensually agreed upon. Question Answer Comments Discussion of Advance Directives occurred with: Patient Does the patient have a Living Will? No Does the patient have Health Care Power of [employer] Make Up Helper? No Code Status History Code Status Date Activated Date Inactivated Comments Full Code 10/06/2018 7:27 AM 10/09/2018 6:57 PM Thi s order reflects the patients wishes and were consensually agreed upon. POToro daughter Angeles Neely Question Answer Comments Discussion of Advance Directives occurred with: Patient Does the patient have a Living Will? Yes, not currently available Does the patient have Health Care Power of Cd Storage [employer] Materials Make Up Helper? Yes, in chart and reviewed as current Full Code 09/18/2018 5:56 PM 09/20/2018 4:51 PM This order reflects the patients wishes and were consensually agreed upon. Question Answer Comments Discussion of Advance Directives occurred with: Patient Does the patient have a Living Will? Yes, not currently available Full Code 02/18/2017 6:54 PM 02/20/2017 5:31 PM This or ricardo reflects the patients wishes and were consensually agreed upon. Question Answer Comments Discussion of Advance Directives occurred with: Patient Does the patient have a Living Will? No Does the patient have Health Care Power of Cd Storage [employer] Materials Make Up Helper? No Care Teams Payroll Professional Relationship Specialty Start Date End Date Krystle Rodriguez MD [address] [place] [address] PCP - General Internal Medicine 06/11/19 documented as of this encounter
--- OUTSIDE RECORDS SUMMARY | 2024-06-06 21:04 | External Medical Summary | Summary of Care ---
Author Name Unknown Organization [facility] Address [address] [place] [address] Phone [phone] Care Team Providers Care Deck Worker Name Role Phone Krystle Rodriguez MD Primary Care Provider + Reason for Visit * Reason Comments eRx-Medication Refill Encounter Details Date Type Department Care Team (Late st Contact Info) Description 02/19/2024 Refill General Internal Medicine [facility] [address] [facility] [place] [id number] Krystle Rodriguez MD [address] [place] [address] NAVIN (generalized anxiety disorder); Current moderate episode of major depressive disorder, unspecified whether recurrent (HCC) Allergies Active Allergy Reactions Criticality Noted Date Comments Bee Venom Edema Other 02/18/2017 "itching, red, swelling, but only at the place where I got stung" Clam Shell Diarrhea 04/24/2022 Pollen 08/14/2022 Unsure exactly what, but has some sort of seasonal allergy documented as of this encounter (statuses as of 02/20/2024) Medications Medication Sig Dispensed Refills Start Date [...] a day. 60 Tablet 11 05/20/2023 Active Latanoprost 0.005 % Ophthalmic Emulsion Instill [...] EVERY MORNING 90 Tablet 1 02/20/2024 Active Escitalopram Oxalate 10 MG Oral Tablet (Lexapro)Indicati ons:NAVIN (generalized anxiety disorder),Current moderate episode of major depressive disorder, unspecified whether recurrent (HCC) TAKE 1 TABLET BY MOUTH EVERY MORNING 90 Tablet 1 08/23/2023 4 Discontinued documented as of this encounter (statuses as of 02/20/2024) Active Problems Problem Noted Date Diagnosed Date [...] as of this encounter (statuses as of 02/20/2024) Resolved Problems Problem Noted Date Diagnosed Date Resolved Date Epilepsy 04/07/2019 10/29/2022 Senile osteoporosis 04/07/2019 10/29/19 23 documented as of this encounter (statuses as of 02/20/2024) Immunizations Name Administration Dates Next Due COVID-19 [...] encounter Miscellaneous Notes * Telephone Encounter - Susan Garcia [facility] - 02/20/2024 10:51 AM EDTSigned Prescriptions: Disp Refills Escitalopram Oxalate 10 MG Oral Tablet (Le*90 Tab*1 Sig: TAKE 1 TABLET BY MOUTH EVERY MORNINGAuthorizing Provider: KRYSTLE RODRIGUEZ User: HANK GARCIA documented in this encounter Plan of Treatment Upcoming Encounters Date Type Department Care Team (Late st Contact Info) Description 06/02/2024 4:30 PM EDT [place] [facility] [place] [address] [place] [address] Jenny Nicole PA-C [address] [facility] [place] [address] Scheduled Procedures Name Priority Associated Diagnoses Date/Ti me COLONOSCOPY FLEXIBLE PROXIMA L DIAGNOSTIC Recall Special screening for malignant neoplasms, colon Health Maintenance Due Date Last Done Comments Zoster Vaccines (1 of 2) 1997 COVID-19 Vaccine ( season) 2023 09/18/2021, 12/18/2020, 11/13/2020 *BISPHONATE OR OTHER ACCEPTABLE MEDICATION NEEDED FOR OSTEOPOROSIS (REFER TO SMARTSET #1146) 11/21/2023 Influenza Vaccine (FLU shot) (Season Ended) 2024 08/14/2022, 07/24/2021, 07/24/2021, Additional history exists DXA Scan 11/26/2024 11/26/2022, 03/2023, 11/22/2020, Additional history exists DTaP,Tdap,and Td Vaccines (2 - Td or Tdap) 07/01/2029 07/01/2019 Colonoscopy Discontinued 12/07/2011 Colorectal Cancer Screening Discontinued VITAMIN D LEVEL ONCE IN A LIFETIME-USE SMARTSET# 81922 Completed 05/21/2019 Pneumococcal Vaccine: 65+ Years Completed [...] this encounter Medical Devices Implanted Type Area Airset Caster Device Identifier Shelf Expiration Date Model / Serial / Lot Iol Implanted:Qty: 1 on 06/30/2020 by Shaheen De Souza MD at OR [facility] Left: Eye 12/18/2024 [id number] / [id number] / Lens Intraoc 18.0 - [id number] - [id number] Implanted:Qty: 1 on 07/14/2020 by Shaheen De Souza MD at OR [facility] Right: Eye [employer]OM[employer] 02/17/2025 [id number] / [id number] / documented as of this encounter Visit Diagnoses Diagnosis NAVIN (generalized anxiety disorder) Generalized anxiety disorder Current moderate episode of major depressive disorder, unspecified whether recurrent (HCC) documented in this encounter Advance Directives Latest Code Status on File Code Status Date Activated Date Inactivated Comments Full Code 10/28/2018 9:41 AM 10/30/2018 10:33 PM This order reflects the patients wishes and were consensually agreed upon. Question Answer Comments Discussion of Advance Directives occurred with: Patient Does the patient have a Living Will? No Does the patient have Health Care Power of Administration Assistant? No Code Status History Code Status Date [...] the patient have Health Care Power of Administration Assistant? Yes, in chart and reviewed as current [...] the patient have Health Care Power of Administration Assistant? No Care Teams Deck Worker Relationship Specialty Start Date End Date Krystle Rodriguez MD [address] [place] [address] PCP - General Internal Medicine 06/11/19 documented as of this encounter
[2024-06-06] MEDS: OPTIRAY 320 125ml IV ONE (21:30)
[2024-06-06 21:35] LABS: Albumin Globulin Ratio 2.2 (0.9-2); Albumin Level 4.4 gm/dl (3.4-5.0); BUN Creatinine Ratio 31.1 (10-20); Bilirubin,Total 0.3 mg/dl (0.2-1.0); Calcium 9.2 mg/dl (8.6-10.3); Creatinine Clr Calc Pharmacy 71.2 ml/min; Est GFR (African American) 101.3 ml/min; Est GFR (Non-African American) 87.4 ml/min; Magnesium 2.1 mg/dl (1.7-2.4); Potassium 3.8 mmol/L (3.5-5.1); Total Protein 6.4 gm/dl (6.0-8.3)
[2024-06-06 21:39] LABS: Basophils # (auto) 0.09 K/uL (0.00-0.20); Eosinophils # (auto) 0.35 K/uL (0.00-0.50); Eosinophils % (auto) 3.8 %; Hematocrit (blood only) 43.3 % (37.0-47.0); Hemoglobin 14.4 g/dl (12.0-16.0); Immature Granulocytes # (auto) 0.02 K/uL (0.01-0.20); Immature Granulocytes % (auto) 0.2 %; Lymphocytes # (auto) 4.33 K/uL (1.20-3.40); Lymphocytes % (auto) 47.2 %; Mean Corpuscular Hemoglobin 31.5 pg (25.0-34.0); Mean Corpuscular Hgb Conc 33.3 g/dL (32.0-36.0); Mean Corpuscular Volume 94.7 fL (80.0-100.0); Mean Platelet Volume 9.3 fL (9.4-12.4); Monocytes # (auto) 0.98 K/uL (0.11-0.59); Monocytes % (auto) 10.7 %; Neutrophils # (auto) 3.41 K/uL (1.40-6.50); Neutrophils % (auto) 37.1 %; Platelet Count 289 K/uL (130-400); RDW Coefficient of Variation 12.5 % (11.5-14.5); RDW Standard Deviation 43.2 fL (36.4-46.3); Red Blood Count 4.57 M/uL (4.20-5.40); White Blood Count 9.18 K/ul (4.8-10.8)
[2024-06-06 21:42] LABS: Troponin I High Sensitivity 4.4 pg/ml (0-14)
[2024-06-06 21:46] LABS: INR 0.9 (0.9-1.1); Partial Thromboplastin Ratio 0.9; Partial Thromboplastin Time 25 Seconds (21-31); Prothrombin Time 10.3 Seconds (9.0-12.0)
--- NOTE | 2024-06-06 21:48 | CT Scan Report ---
Exam(s): CT HEAD Without Contrast EXAM: CT Head Without Intravenous Contrast CLINICAL HISTORY: neuro deficit, acute stroke suspected. TECHNIQUE: Axial computed tomography images of the head/brain without intravenous contrast. CTDI is 36.18 mGy and DLP is 624.41 mGy-cm. Automated exposure control was utilized for the study. A dose lowering technique was utilized adhering to the principles of ALARA. COMPARISON: No relevant prior studies available. FINDINGS: Brain: No intracranial hemorrhage. No significant mass effect. No evidence for cortical infarct. Minimal prominence of the cerebral sulci and sylvian fissures noted. There is a suggestion of subtle periventricular deep white matter hypodense changes. Ventricles: No midline shift or ventriculomegaly. Bones/joints: Unremarkable. No acute fracture. Soft tissues: Unremarkable. Sinuses: Unremarkable as visualized. No acute sinusitis. Mastoid air cells: Unremarkable as visualized. No mastoid effusion. IMPRESSION: No acute intracranial process identified. Communications: Call Doctor Stroke Electronically signed by: Dwight Borrego MD 06/06/24 21:47 PM
--- NOTE | 2024-06-06 21:51 | CT Scan Report ---
Exam(s): CTA HEAD With Contrast IV Amt: 119ml optiray 320 EXAM: CT Angiography Head With Intravenous Contrast CLINICAL HISTORY: neuro deficit, acute stroke suspected. TECHNIQUE: Axial computed tomographic angiography images of the head with intravenous contrast. CTDI is 64.32 mGy and DLP is 1160.39 mGy-cm. Automated exposure control was utilized for the study. A dose lowering technique was utilized adhering to the principles of ALARA. MIP reconstructed images were created and reviewed. CONTRAST: Patient received 119ml optiray 320 of IV contrast COMPARISON: No relevant prior studies available. FINDINGS: Right internal carotid artery: Moderate atherosclerotic calcification of the right cavernous and supraclinoid internal carotid artery. No significant narrowing. The petrous segment is patent. No aneurysm. Right anterior cerebral artery: Unremarkable. No occlusion or significant stenosis. No aneurysm. Right middle cerebral artery: Unremarkable. No occlusion or significant stenosis. No aneurysm. Right posterior cerebral artery: There is a dominant right posterior communicating branch serving the right posterior cerebral artery. The right posterior cerebral artery is patent. No occlusion or significant stenosis. No aneurysm. Right vertebral artery: Unremarkable as visualized. Left internal carotid artery: Mild atherosclerotic calcification of the left cavernous internal carotid artery. The petrous and supraclinoid segments are patent. No significant narrowing. No aneurysm. Left anterior cerebral artery: Unremarkable. No occlusion or significant stenosis. No aneurysm. Left middle cerebral artery: Unremarkable. No occlusion or significant stenosis. No aneurysm. Left posterior cerebral artery: There is a origin of the left posterior cerebral artery via the posterior communicating artery. The left posterior cerebral artery is patent. No occlusion or significant stenosis. No aneurysm. Left vertebral artery: Unremarkable as visualized. Basilar artery: Unremarkable. No occlusion or significant stenosis. No aneurysm. IMPRESSION: Negative intracranial CTA examination. Communications: Call Doctor Stroke Electronically signed by: Dwight Borrego MD 06/06/24 21:50 PM
--- NOTE | 2024-06-06 21:54 | CT Scan Report ---
Exam(s): CTA NECK With Contrast IV Amt: 119ml optiray 320 EXAM: CT Angiography Neck With Intravenous Contrast CLINICAL HISTORY: neuro deficit, acute stroke suspected. TECHNIQUE: Routine carotid CT angiography protocol was performed with intravenous contrast. NASCET criteria using the distal ICAs for comparison were used for evaluation of stenoses. CTDI is 64.32 mGy and DLP is 1160.39 mGy-cm. Automated exposure control was utilized for the study. A dose lowering technique was utilized adhering to the principles of ALARA. MIP reconstructed images were created and reviewed. CONTRAST: Patient received 119ml optiray 320 of IV contrast COMPARISON: CTA neck 04/24/2022 FINDINGS: VASCULATURE: Right common carotid artery: Unremarkable. No occlusion or significant stenosis. No dissection. Right internal carotid artery: Mild atherosclerotic calcification of the proximal right internal carotid artery without significant narrowing by NASCET criteria. The mid to distal internal carotid artery is patent. No dissection. Right external carotid artery: Unremarkable. No occlusion. Right vertebral artery: Unremarkable. No occlusion or significant stenosis. No dissection. Left common carotid artery: Unremarkable. No occlusion or significant stenosis. No dissection. Left internal carotid artery: Atherosclerotic calcification of the proximal left internal carotid artery at the carotid bifurcation with minimal eccentric atheromatous changes. No significant narrowing by NASCET criteria. The mid to distal internal carotid artery is patent. No dissection. Left external carotid artery: Unremarkable. No occlusion. Left vertebral artery: Unremarkable. No occlusion or significant stenosis. No dissection. Aorta: The aortic arch is patent without dissection or aneurysm. NECK: Bones/joints: Unremarkable. No acute fracture. Soft tissues: Unremarkable. Thyroid: The left thyroid lobe remains markedly abnormal and enlarged with extension posteriorly at the thoracic inlet causing some rightward deviation of the trachea. Innumerable nodules and regions of calcification appears similar. Lung apices: Clear. CAROTID STENOSIS REFERENCE USING NASCET CRITERIA: % ICA stenosis = (1 - narrowest ICA diameter/diameter of distal cervical ICA) x 100. Mild - <50% stenosis. Moderate - 50-69% stenosis. Severe - 70-94% stenosis. Near occlusion - 95-99% stenosis. Occluded - 100% stenosis. IMPRESSION: 1. Negative cervical CTA examination. No significant alteration from the prior examination. 2. Incidental markedly abnormal left thyroid gland, stable in appearance from the previous examination. Communications: 06/06/24 21:53 Call Doctor Regarding Stroke. A telephone report of the findings was given to and confirmed by Dr. Eldridge on 06/06 21:53 (-04: 00) Electronically signed by: Dwight Borrego MD 06/06/24 21:53 PM
--- NOTE | 2024-06-06 23:30 | History & Physical Report ---
Date of Service June 06, 2024 Assessment & Plan (1) TIA (transient ischemic attack): Plan: 79-year-old female with past medical history significant for multinodal goiter, osteoarthritis of both knees, osteoporosis, neuropathy, epilepsy, GERD generalized anxiety,, depression, history of TIA who lives alone at home comes because of strokelike symptoms. Around 8 PM patient was ready to go to bed when she felt very weak and whenever she feels weak she uses walker and at the same time she was also having slurred speech and was brought to the hospital. Patient's daughter is in the room. As per daughter whenever patient feels weak she gets on and off slurred speech but today it was more profound. It lasted for about half hour. She would only speak small sentences and was very slurred. Currently patient is back to her baseline. Currently alert and oriented. Denies any headache. No dizziness. No blurred vision. She has allergies and has runny nose and chronic cough. No difficulty swallowing. No chest pain or shortness of breath. No nausea. No abdominal pain. Normal bowel and bladder movements. Currently resting comfortably and hemodynamics are okay. Strokelike symptoms Possible TIA Transient slurred speech CT head, CTA head and neck unremarkable Continue home aspirin Will do stroke workup Telemetry Neurochecks Will check HbA1c levels and lipid levels Speech evaluation in a.m. PT OT evaluation Patient has severe claustrophobia and says she requires anesthesia for MRI or needs to be done open Will check with anesthesia in a.m. Neurology consult a.m. History of seizures On carbamazepine Will monitor Depression Generalized anxiety disorder On Lexapro Multinodular goiter Needs follow-up Will follow TSH On methimazole DVT prophylaxis SCDs Disposition Telemetry Full code. History of Present Illness Chief Complaint: Strokelike symptoms Primary Care Provider: Elvia Rodriguez MD 79-year-old female with past medical history significant for multinodal goiter, osteoarthritis of both knees, osteoporosis, neuropathy, epilepsy, GERD generalized anxiety,, depression, history of TIA who lives alone at home comes because of strokelike symptoms. Around 8 PM patient was ready to go to bed when she felt very weak and whenever she feels weak she uses walker and at the same time she was also having slurred speech and was brought to the hospital. Patient's daughter is in the room. As per daughter whenever patient feels weak she gets on and off slurred speech but today it was more profound. It lasted for about half hour. She would only speak small sentences and was very slurred. Currently patient is back to her baseline. Currently alert and oriented. Denies any headache. No dizziness. No blurred vision. She has allergies and has runny nose and chronic cough. No difficulty swallowing. No chest pain or shortness of breath. No nausea. No abdominal pain. Normal bowel and bladder movements. Currently resting comfortably and hemodynamics are okay. Past medical history. As mentioned above Past surgical history. Relieve inner eye pressure bilaterally. Bilateral cataracts. Repair of elbow fracture. Social history. Lives alone. No smoking. Alcohol rarely. No drug use. Family history. Mother had coronary disease. Uterine cancer. Father had emphysema. Daughter had breast cancer. Allergies Allergy/AdvReac Type Severity Reaction Status Date / Time clams Allergy Unknown Dyspepsia, Verified 06/06/24 22:18 abdominal pain Home Medications Medication Instructions Recorded Confirmed Type turmeric 400 mg capsule 400 mg PO QAM 07/24/19 06/06/24 History calcium carbonate 500 mg-vitamin 1 tab PO BID 04/24/22 06/06/24 History D3 5 mcg (200 unit) tablet (Calcium 500 + D) carbamazepine 400 mg 400 mg PO Q12H 04/24/22 06/06/24 History tablet,extended release,12 hr glucosamine-chondroitin 250 mg-200 1 tab PO BID 04/24/22 06/06/24 History mg tablet (Osteo Bi-Flex) multivitamin with minerals 1 tab PO QDL 04/24/22 06/06/24 History olopatadine 0.1 % eye drops 1 drp OPB DAILY PRN allergies 04/24/22 06/06/24 History vitamin B complex 1 tab PO QDL 04/24/22 06/06/24 History L.acidop,casei,lactis,rham-B.lact,marcelle 1 cap PO .MID AFTERNOON 05/17/23 06/06/24 History 625 mg (10 billion cell) capsule (Advanced Probiotic) escitalopram oxalate 10 mg tablet 10 mg PO HS 05/17/23 06/06/24 History methimazole 5 mg tablet 5 mg PO QAM 05/17/23 06/06/24 History aspirin 81 mg tablet,delayed 81 mg PO QAM 09/04/23 06/06/24 History release latanoprost 0.005 % eye drops 1 drp OPR HS 09/04/23 06/06/24 History Past Med/Surg History Problem List (Updated 06/07/24 @ 00:36 by Pieter Gupta MD) Status post left knee replacement (~06/2023) Encounter for pre-operative examination Hyperthyroidism Taking Methimazole TIA (transient ischemic attack) (Acute) Osteoarthritis of right knee Osteoporosis Medical History Hx of compression fracture of spine 2017, "mid back" > "healed" Anxiety Osteoarthritis TIA (transient ischemic attack) 04/2022, possible TIA (testing "inconclusive") Multinodular goiter Seizure disorder Hx epilepsy, no seizure x several years Arthritis Hiatal hernia Diverticular disease Hx of basal cell carcinoma s/p excision Glaucoma B/L Surgical History History of tonsillectomy History of tooth extraction Hx of cataract surgery R/L History of colonoscopy Hx laparoscopic cholecystectomy Laparoscopic Cholecystectomy (08/06/19): Grade 1 view, MAC#3, ETT 7.0, atraumatic Hx of basal cell carcinoma excision History of elbow surgery Right Family History Daughter Breast cancer Social History Smoking Status: Never smoker Second Hand Exposure: No; Do You Dip or Chew Tobacco: No; Tobacco Cessation Education Requested by Patient: No Hx Alcohol Use: No Hx Substance Use: No Preferred Language: Romanian Communication Ability: Effective Densitometrist Required: No Beliefs That Will Affect Care: None marital status: Current Living Situation: Alone Current Living Situation Comment: Lives alone in apartment in care home community in [place] current occupational status: retired How many Children do You have: 1 Other Information That Helps Us Care for You: No Feels Safe at Home: Yes Safety Concerns: Feels Safe At This Time Assistive Devices: Glasses and Walker Review of Systems Review of Systems: All systems reviewed & are unremarkable except as noted in HPI & below Physical Exam Physical Exam: General- Not in distress Head- atraumatic Eyes- PERRL, EOMI. ENT- oropharynx clear Neck- supple, no JVD. Lungs- clear to auscultation no wheezing or crackles. Heart- regular rate and rhythm; no murmur, no gallop. Abdomen- normal bowel sounds, soft, nontender, no distension. Extremities- no pretibial edema, no erythema seen Neuro- alert, oriented ; PERRL, EOMI; no facial palsy; no dysarthria; motor 5/5 bilaterally; no pronator drift, finger nose test normal.coordination of movements normal. Skin- warm & dry Results & Data Results & Data Vital Signs (Past 12 Hours) Vital Signs Temp Pulse Pulse Resp BP BP Pulse Ox 06/06/24 22:43 88 20 143/84 H 96 06/06/24 21:04 36.4 C L 92 H 12 133/85 97 06/06/24 21:03 96 H O2 Del Method 06/06/24 22:43 Room Air 06/06/24 21:04 Room Air 06/06/24 21:03 Diagnostic Findings Laboratory Results WBC 9.18 K/ul (4.8-10.8) 06/06/24 21:04 RBC 4.57 M/uL (4.20-5.40) 06/06/24 21:04 Hgb 14.4 g/dl (12.0-16.0) 06/06/24 21:04 Hct 43.3 % (37.0-47.0) 06/06/24 21:04 MCV 94.7 fL (80.0-100.0) 06/06/24 21:04 MCH 31.5 pg (25.0-34.0) 06/06/24 21: MCHC 33.3 g/dL (32.0-36.0) 06/06/24 21:04 RDW Std Deviation 43.2 fL (36.4-46.3) 06/06/24 21:04 RDW Coeff of Bhavesh 12.5 % (11.5-14.5) 06/06/24 21:04 Plt Count 289 K/uL (130-400) 06/06/24 21:04 MPV 9.3 fL (9.4-12.4) L 06/06/24 21:04 Immature Gran % (Auto) 0.2 % 06/06/24 21: Neut % (Auto) 37.1 % 06/06/24 21:04 Lymph % (Auto) 47.2 % 06/06/24 21:04 Owsley % (Auto) 10.7 % 06/06/24 21:04 Eos % (Auto) 3.8 % 06/06/24 21:04 Baso % (Auto) 1.0 % 06/06/24 21:04 Neut # (Auto) 3.41 K/uL (1.40-6.50) 06/06/24 21:04 Lymph # (Auto) 4.33 K/uL (1.20-3.40) H 06/06/24 21:04 Owsley # (Auto) 0.98 K/uL (0.11-0.59) H 06/06/24 21:04 Eos # (Auto) 0.35 K/uL (0.00-0.50) 06/06/24 21:04 Baso # (Auto) 0.09 K/uL (0.00-0.20) 06/06/24 21:04 Immature Gran # (Auto) 0.02 K/uL (0.01-0.20) 06/06/24 21:04 PT 10.3 Seconds (9.0-12.0) 06/06/24 21:04 INR 0.9 (0.9-1.1) 06/06/24 21:04 APTT 25 Seconds (21-31) 06/06/24 21:04 PTT Ratio 0.9 06/06/24 21:04 Sodium 141 mmol/L (136-145) 06/06/24 21:04 Potassium 3.8 mmol/L (3.5-5.1) 06/06/24 21:04 Chloride 105 mmol/L (98-107) 06/06/24 21:04 Carbon Dioxide 29 mmol/L (21-32) 06/06/24 21:04 Anion Gap 7 (3-11) 06/06/24 21:04 BUN 19 mg/dl (6-23) 06/06/24 21:04 Creatinine 0.61 mg/dl (0.6-1.2) 06/06/24 21:04 Est Cr Clr Drug Dosing 71.2 ml/min 06/06/24 21:04 Est GFR ( Amer) 101.3 ml/min 06/06/24 21:04 Est GFR (Non-Af Amer) 87.4 ml/min 06/06/24 21:04 BUN/Creatinine Ratio 31.1 (10-20) H 06/06/24 21:04 Glucose 103 mg/dl (70-99(Fasting)) H 06/06/24 21:04 Calcium 9.2 mg/dl (8.6-10.3) 06/06/24 21:04 Magnesium 2.1 mg/dl (1.7-2.4) 06/06/24 21:04 Total Bilirubin 0.3 mg/dl (0.2-1.0) 06/06/24 21:04 AST 17 U/L (13-39) 06/06/24 21:04 ALT 12 U/L (7-52) 06/06/24 21:04 Alkaline Phosphatase 130 U/L (34-104) H 06/06/24 21:04 Troponin I High Sens 4.4 pg/ml (0-14) 06/06/24 21:04 Total Protein 6.4 gm/dl (6.0-8.3) 06/06/24 21:04 Albumin 4.4 gm/dl (3.4-5.0) 06/06/24 21:04 Globulin 2.0 gm/dl (2.5-4.0) L 06/06/24 21:04 Albumin/Globulin Ratio 2.2 (0.9-2) H 06/06/24 21:04 Blood Type O Positive 06/06/24 21:14 Antibody Screen NEGATIVE 06/06/24 21:[address] 06/06/24 21:04 CR Exam(s): CT HEAD Without Contrast EXAM: CT Head Without Intravenous Contrast CLINICAL HISTORY: neuro deficit, acute stroke suspected. TECHNIQUE: Axial computed tomography images of the head/brain without intravenous contrast. CTDI is 36.18 mGy and DLP is 624.41 mGy-cm. Automated exposure control was utilized for the study. A dose lowering technique was utilized adhering to the principles of ALARA. COMPARISON: No relevant prior studies available. FINDINGS: Brain: No intracranial hemorrhage. No significant mass effect. No evidence for cortical infarct. Minimal prominence of the cerebral sulci and sylvian fissures noted. There is a suggestion of subtle periventricular deep white matter hypodense changes. Ventricles: No midline shift or ventriculomegaly. Bones/joints: Unremarkable. No acute fracture. Soft tissues: Unremarkable. Sinuses: Unremarkable as visualized. No acute sinusitis. Mastoid air cells: Unremarkable as visualized. No mastoid effusion. IMPRESSION: No acute intracranial process identified. Communications: Call Doctor Stroke Electronically signed by: Dwight Borrego MD 06/06/24 21:47 PM Head CTA 06/06/24 21:04 CR Exam(s): CTA HEAD With Contrast IV Amt: 119ml optiray 320 EXAM: CT Angiography Head With Intravenous Contrast CLINICAL HISTORY: neuro deficit, acute stroke suspected. TECHNIQUE: Axial computed tomographic angiography images of the head with intravenous contrast. CTDI is 64.32 mGy and DLP is 1160.39 mGy-cm. Automated exposure control was utilized for the study. A dose lowering technique was utilized adhering to the principles of ALARA. MIP reconstructed images were created and reviewed. CONTRAST: Patient received 119ml optiray 320 of IV contrast COMPARISON: No relevant prior studies available. FINDINGS: Right internal carotid artery: Moderate atherosclerotic calcification of the right cavernous and supraclinoid internal carotid artery. No significant narrowing. The petrous segment is patent. No aneurysm. Right anterior cerebral artery: Unremarkable. No occlusion or significant stenosis. No aneurysm. Right middle cerebral artery: Unremarkable. No occlusion or significant stenosis. No aneurysm. Right posterior cerebral artery: There is a dominant right posterior communicating branch serving the right posterior cerebral artery. The right posterior cerebral artery is patent. No occlusion or significant stenosis. No aneurysm. Right vertebral artery: Unremarkable as visualized. Left internal carotid artery: Mild atherosclerotic calcification of the left cavernous internal carotid artery. The petrous and supraclinoid segments are patent. No significant narrowing. No aneurysm. Left anterior cerebral artery: Unremarkable. No occlusion or significant stenosis. No aneurysm. Left middle cerebral artery: Unremarkable. No occlusion or significant stenosis. No aneurysm. Left posterior cerebral artery: There is a origin of the left posterior cerebral artery via the posterior communicating artery. The left posterior cerebral artery is patent. No occlusion or significant stenosis. No aneurysm. Left vertebral artery: Unremarkable as visualized. Basilar artery: Unremarkable. No occlusion or significant stenosis. No aneurysm. IMPRESSION: Negative intracranial CTA examination. Communications: Call Doctor Stroke Electronically signed by: Dwight Borrego MD 06/06/24 21:50 PM Neck CTA 06/06/24 21:04 CR Exam(s): CTA NECK With Contrast IV Amt: 119ml optiray 320 EXAM: CT Angiography Neck With Intravenous Contrast CLINICAL HISTORY: neuro deficit, acute stroke suspected. TECHNIQUE: Routine carotid CT angiography protocol was performed with intravenous contrast. NASCET criteria using the distal ICAs for comparison were used for evaluation of stenoses. CTDI is 64.32 mGy and DLP is 1160.39 mGy-cm. Automated exposure control was utilized for the study. A dose lowering technique was utilized adhering to the principles of ALARA. MIP reconstructed images were created and reviewed. CONTRAST: Patient received 119ml optiray 320 of IV contrast COMPARISON: CTA neck 04/24/2022 FINDINGS: VASCULATURE: Right common carotid artery: Unremarkable. No occlusion or significant stenosis. No dissection. Right internal carotid artery: Mild atherosclerotic calcification of the proximal right internal carotid artery without significant narrowing by NASCET criteria. The mid to distal internal carotid artery is patent. No dissection. Right external carotid artery: Unremarkable. No occlusion. Right vertebral artery: Unremarkable. No occlusion or significant stenosis. No dissection. Left common carotid artery: Unremarkable. No occlusion or significant stenosis. No dissection. Left internal carotid artery: Atherosclerotic calcification of the proximal left internal carotid artery at the carotid bifurcation with minimal eccentric atheromatous changes. No significant narrowing by NASCET criteria. The mid to distal internal carotid artery is patent. No dissection. Left external carotid artery: Unremarkable. No occlusion. Left vertebral artery: Unremarkable. No occlusion or significant stenosis. No dissection. Aorta: The aortic arch is patent without dissection or aneurysm. NECK: Bones/joints: Unremarkable. No acute fracture. Soft tissues: Unremarkable. Thyroid: The left thyroid lobe remains markedly abnormal and enlarged with extension posteriorly at the thoracic inlet causing some rightward deviation of the trachea. Innumerable nodules and regions of calcification appears similar. Lung apices: Clear. CAROTID STENOSIS REFERENCE USING NASCET CRITERIA: % ICA stenosis = (1 - narrowest ICA diameter/diameter of distal cervical ICA) x 100. Mild - <50% stenosis. Moderate - 50-69% stenosis. Severe - 70-94% stenosis. Near occlusion - 95-99% stenosis. Occluded - 100% stenosis. IMPRESSION: 1. Negative cervical CTA examination. No significant alteration from the prior examination. 2. Incidental markedly abnormal left thyroid gland, stable in appearance from the previous examination. Communications: 06/06/24 21:53 Call Doctor Regarding Stroke. A telephone report of the findings was given to and confirmed by Dr. Eldridge on 06/06 21:53 (-04: 00) Electronically signed by: Dwight Borrego MD 06/06/24 21:53 PM ECG Additional Comments: ECG. Normal sinus rhythm rate of 91. No significant change was found. Code Status & VTE Plan VTE Prophylaxis Plan VTE Prophylaxis will be ordered: Yes
[2024-06-07] MEDS ORDERED: NITROGLYCERIN SL 0.4 MG/TAB TAB SL PRN (00:34)
[2024-06-07] MEDS ORDERED: POLYETHYLENE (MIRALAX) 17 GM PACK PO PRN (00:34)
[2024-06-07] MEDS ORDERED: PHARMACIST DISCHARGE MED REC CONSULT PRN (00:34)
[2024-06-07] MEDS ORDERED: ACETAMINOPHEN 325 MG TAB PO PRN (00:34)
--- NOTE | 2024-06-07 00:36 | Emergency Department Note ---
History of Present Illness General Chief complaint: Weakness Stated complaint: WEAKNESS SINCE 1999 Time Seen by Provider: 06/06/24 21:03 Source: patient and EMS History of Present Illness Provider complaint: Difficulty speaking weakness Onset (ago): hour(s) 1 79-year-old female presents emergency department via EMS for weakness and difficulty speaking. Patient symptoms began acutely at 8 PM. According to EMS patient was having difficulty getting her words out and was slurring her words. Patient reports she feels much better now. EMS reports there is a significant improvement in the patient's speaking abilities and the clarity of her speech. No headaches. No falls. No fevers. No neck pain. No nausea vomiting or diarrhea. No blood thinners. Home Medications Medication Instructions Recorded Confirmed Type turmeric 400 mg capsule 400 mg PO QAM 07/24/19 06/06/24 History calcium carbonate 500 mg-vitamin 1 tab PO BID 04/24/22 06/06/24 History D3 5 mcg (200 unit) tablet (Calcium 500 + D) carbamazepine 400 mg 400 mg PO Q12H 04/24/22 06/06/24 History tablet,extended release,12 hr glucosamine-chondroitin 250 mg-200 1 tab PO BID 04/24/22 06/06/24 History mg tablet (Osteo Bi-Flex) multivitamin with minerals 1 tab PO QDL 04/24/22 06/06/24 History olopatadine 0.1 % eye drops 1 drp OPB DAILY PRN allergies 04/24/22 06/06/24 History vitamin B complex 1 tab PO QDL 04/24/22 06/06/24 History L.acidop,casei,lactis,rham-B.lact,marcelle 1 cap PO .MID AFTERNOON 05/17/23 06/06/24 History 625 mg (10 billion cell) capsule (Advanced Probiotic) escitalopram oxalate 10 mg tablet 10 mg PO HS 05/17/23 06/06/24 History methimazole 5 mg tablet 5 mg PO QAM 05/17/23 06/06/24 History aspirin 81 mg tablet,delayed 81 mg PO QAM 09/04/23 06/06/24 History release latanoprost 0.005 % eye drops 1 drp OPR HS 09/04/23 06/06/24 History Allergies Allergy/AdvReac Type Severity Reaction Status Date / Time clams Allergy Unknown Dyspepsia, Verified 06/06/24 22:18 abdominal pain Past Med/Surg History Problem List (Updated 06/07/24 @ 00:36 by Pieter Gupta MD) Status post left knee replacement (~06/2023) Encounter for pre-operative examination Hyperthyroidism Taking Methimazole TIA (transient ischemic attack) (Acute) Osteoarthritis of right knee Osteoporosis Medical History Hx of compression fracture of spine 2017, "mid back" > "healed" Anxiety Osteoarthritis TIA (transient ischemic attack) 04/2022, possible TIA (testing "inconclusive") Multinodular goiter Seizure disorder Hx epilepsy, no seizure x several years Arthritis Hiatal hernia Diverticular disease Hx of basal cell carcinoma s/p excision Glaucoma B/L Surgical History History of tonsillectomy History of tooth extraction Hx of cataract surgery R/L History of colonoscopy Hx laparoscopic cholecystectomy Laparoscopic Cholecystectomy (08/06/19): Grade 1 view, MAC#3, ETT 7.0, atraumatic Hx of basal cell carcinoma excision History of elbow surgery Right Family History Daughter Breast cancer Social History Smoking Status: Unknown if ever smoked Second Hand Exposure: Yes (as child); Do You Dip or Chew Tobacco: No; Hx Alcohol Use: Yes Alcohol type: wine Hx Substance Use: No Preferred Language: Mexican Communication Ability: Effective 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 Beliefs That Will Affect Care: None marital status: Current Living Situation: Alone Current Living Situation Comment: Lives alone in apartment in [facility] [email or web address] current occupational status: retired How many Children do You have: 1 Feels Safe at Home: Yes Assistive Devices: Glasses and Walker Physical Exam Vital Signs Vital Signs - 24 hr 06/06/24 21:03 06/06/24 21:04 06/06/24 22:43 Temperature 36.4 C L Temperature Source Oral Pulse Rate 96 H 92 H Pulse Rate [Finger] 88 Respiratory Rate 12 20 Blood Pressure 133/85 Blood Pressure [Left Arm] 143/84 H Blood Pressure Mean 101 Blood Pressure Mean [Left Arm] 103 Pulse Oximetry 97 96 Oxygen Delivery Method Room Air Room Air Sepsis Recent Fever Within 48 Hours No Sepsis New/Unexplained Change in Mental Status No Sepsis Action Taken by Nursing No Action Required Physical Exam HENT: Exam performed. -Head: Normocephalic and atraumatic. -Right Ear: External ear normal. No mastoid erythema -Left Ear: External ear normal. No mastoid erythema -Mouth/Throat: The oropharynx is clear and moist. No trismus in the jaw. No dental abscesses or uvula swelling. No oropharyngeal exudate or tonsillar abscesses. EYES: Conjunctivae and EOM are normal. Pupils are equal, round, and reactive to light. Right eye exhibits no discharge. Left eye exhibits no discharge. No scleral icterus. NECK: Normal range of motion. Neck supple. No JVD present. No spinous process tenderness present. No rigidity. No tracheal deviation and normal range of motion present. CV: Normal rate, regular rhythm, normal heart sounds and intact distal pulses. There is no peripheral edema. Palpable radial pulses bue. PULM/CHEST: Effort normal and breath sounds normal. No respiratory distress. No stridor. no wheezes. no rales. MUSC/SKEL: Normal range of motion. There is no peripheral edema, tenderness or deformity. NEURO: alert and oriented to person, place, and time. normal strength. No cranial nerve deficit or sensory deficit. Coordination and gait normal. GCS eye subscore is 4. GCS verbal subscore is 5. GCS motor subscore is 6. Cerebellar tests wnl. No clonus. NIHSS: 0 Course Course 2102: The patient was evaluated in room B1. A complete history and physical exam was performed Cardiac monitoring: An order was placed for continuous cardiac monitoring. The monitor shows a rate of 90 with sinus rhythm interpreted by me Patient's symptoms have resolved and her NIHSS is currently 0. EMS reports that the patient's dysarthria and difficulty speaking have significantly improved. No code stroke will be called at this time is thought the patient is most likely having a TIA. 2200: Vital signs stable. CT of the head CTA angio head and neck negative. Patient will be admitted for TIA. Administered Medications Discontinued Medications Ioversol (Optiray 320 125ml) 119 ml IV ONCE ONE Stop: 06/06/24 21:30 Last Admin: 06/06/24 21:30 Dose: 119 ml Documented By: [facility] Medical Decision Making Laboratory Data Attestation: I reviewed the patient's lab results. 06/06/24 21:04 06/06/24 21:04 Lab Results 06/06/24 06/06/24 Range/Units 21:04 21:14 WBC 9.18 (4.8-10.8) K/ul RBC 4.57 (4.20-5.40) M/uL Hgb 14.4 (12.0-16.0) g/dl Hct 43.3 (37.0-47.0) % MCV 94.7 (80.0-100.0) fL MCH 31.5 (25.0-34.0) pg MCHC 33.3 (32.0-36.0) g/dL RDW Std Deviation 43.2 (36.4-46.3) fL RDW Coeff of Bhavesh 12.5 (11.5-14.5) % Plt Count 289 (130-400) K/uL MPV 9.3 L (9.4-12.4) fL Immature Gran % (Auto) 0.2 % Neut % (Auto) 37.1 % Lymph % (Auto) 47.2 % [place] % (Auto) 10.7 % Eos % (Auto) 3.8 % Baso % (Auto) 1.0 % Neut # (Auto) 3.41 (1.40-6.50) K/uL Lymph # (Auto) 4.33 H (1.20-3.40) K/uL [place] # (Auto) 0.98 H (0.11-0.59) K/uL Eos # (Auto) 0.35 (0.00-0.50) K/uL Baso # (Auto) 0.09 (0.00-0.20) K/uL Immature Gran # (Auto) 0.02 (0.01-0.20) K/uL PT 10.3 (9.0-12.0) Seconds INR 0.9 (0.9-1.1) APTT 25 (21-31) Seconds PTT Ratio 0.9 Sodium 141 (136-145) mmol/L Potassium 3.8 (3.5-5.1) mmol/L Chloride 105 (98-107) mmol/L Carbon Dioxide 29 (21-32) mmol/L Anion Gap 7 (3-11) BUN 19 (6-23) mg/dl Creatinine 0.61 (0.6-1.2) mg/dl Est Cr Clr Drug Dosing 71.2 ml/min Est GFR ( Amer) 101.3 ml/min Est GFR (Non-Af Amer) 87.4 ml/min BUN/Creatinine Ratio 31.1 H (10-20) Glucose 103 H (70-99(Fasting)) mg/dl Calcium 9.2 (8.6-10.3) mg/dl Magnesium 2.1 (1.7-2.4) mg/dl Total Bilirubin 0.3 (0.2-1.0) mg/dl AST 17 (13-39) U/L ALT 12 (7-52) U/L Alkaline Phosphatase 130 H (34-104) U/L Troponin I High Sens 4.4 (0-14) pg/ml Total Protein 6.4 (6.0-8.3) gm/dl Albumin 4.4 (3.4-5.0) gm/dl Globulin 2.0 L (2.5-4.0) gm/dl Albumin/Globulin Ratio 2.2 H (0.9-2) Blood Type O Positive Antibody Screen NEGATIVE Imaging Data Attestation: I personally reviewed and interpreted this imaging study as follows: My Impression: CT head: No ICH Radiologist's Impression: Head CT 06/06/24 21:04 CR Exam(s): CT HEAD Without Contrast EXAM: CT Head Without Intravenous Contrast CLINICAL HISTORY: neuro deficit, acute stroke suspected. TECHNIQUE: Axial computed tomography images of the head/brain without intravenous contrast. CTDI is 36.18 mGy and DLP is 624.41 mGy-cm. Automated exposure control was utilized for the study. A dose lowering technique was utilized adhering to the principles of ALARA. COMPARISON: No relevant prior studies available. FINDINGS: Brain: No intracranial hemorrhage. No significant mass effect. No evidence for cortical infarct. Minimal prominence of the cerebral sulci and sylvian fissures noted. There is a suggestion of subtle periventricular deep white matter hypodense changes. Ventricles: No midline shift or ventriculomegaly. Bones/joints: Unremarkable. No acute fracture. Soft tissues: Unremarkable. Sinuses: Unremarkable as visualized. No acute sinusitis. Mastoid air cells: Unremarkable as visualized. No mastoid effusion. IMPRESSION: No acute intracranial process identified. Communications: Call Doctor Stroke Electronically signed by: Dwight Borrego MD 06/06/24 21:47 PM Head CTA 06/06/24 21:04 CR Exam(s): CTA HEAD With Contrast IV Amt: 119ml optiray 320 EXAM: CT Angiography Head With Intravenous Contrast CLINICAL HISTORY: neuro deficit, acute stroke suspected. TECHNIQUE: Axial computed tomographic angiography images of the head with intravenous contrast. CTDI is 64.32 mGy and DLP is 1160.39 mGy-cm. Automated exposure control was utilized for the study. A dose lowering technique was utilized adhering to the principles of ALARA. MIP reconstructed images were created and reviewed. CONTRAST: Patient received 119ml optiray 320 of IV contrast COMPARISON: No relevant prior studies available. FINDINGS: Right internal carotid artery: Moderate atherosclerotic calcification of the right cavernous and supraclinoid internal carotid artery. No significant narrowing. The petrous segment is patent. No aneurysm. Right anterior cerebral artery: Unremarkable. No occlusion or significant stenosis. No aneurysm. Right middle cerebral artery: Unremarkable. No occlusion or significant stenosis. No aneurysm. Right posterior cerebral artery: There is a dominant right posterior communicating branch serving the right posterior cerebral artery. The right posterior cerebral artery is patent. No occlusion or significant stenosis. No aneurysm. Right vertebral artery: Unremarkable as visualized. Left internal carotid artery: Mild atherosclerotic calcification of the left cavernous internal carotid artery. The petrous and supraclinoid segments are patent. No significant narrowing. No aneurysm. Left anterior cerebral artery: Unremarkable. No occlusion or significant stenosis. No aneurysm. Left middle cerebral artery: Unremarkable. No occlusion or significant stenosis. No aneurysm. Left posterior cerebral artery: There is a origin of the left posterior cerebral artery via the posterior communicating artery. The left posterior cerebral artery is patent. No occlusion or significant stenosis. No aneurysm. Left vertebral artery: Unremarkable as visualized. Basilar artery: Unremarkable. No occlusion or significant stenosis. No aneurysm. IMPRESSION: Negative intracranial CTA examination. Communications: Call Doctor Stroke Electronically signed by: Dwight Borrego MD 06/06/24 21:50 PM Neck CTA 06/06/24 21:04 CR Exam(s): CTA NECK With Contrast IV Amt: 119ml optiray 320 EXAM: CT Angiography Neck With Intravenous Contrast CLINICAL HISTORY: neuro deficit, acute stroke suspected. TECHNIQUE: Routine carotid CT angiography protocol was performed with intravenous contrast. NASCET criteria using the distal ICAs for comparison were used for evaluation of stenoses. CTDI is 64.32 mGy and DLP is 1160.39 mGy-cm. Automated exposure control was utilized for the study. A dose lowering technique was utilized adhering to the principles of ALARA. MIP reconstructed images were created and reviewed. CONTRAST: Patient received 119ml optiray 320 of IV contrast COMPARISON: CTA neck 04/24/2022 FINDINGS: VASCULATURE: Right common carotid artery: Unremarkable. No occlusion or significant stenosis. No dissection. Right internal carotid artery: Mild atherosclerotic calcification of the proximal right internal carotid artery without significant narrowing by NASCET criteria. The mid to distal internal carotid artery is patent. No dissection. Right external carotid artery: Unremarkable. No occlusion. Right vertebral artery: Unremarkable. No occlusion or significant stenosis. No dissection. Left common carotid artery: Unremarkable. No occlusion or significant stenosis. No dissection. Left internal carotid artery: Atherosclerotic calcification of the proximal left internal carotid artery at the carotid bifurcation with minimal eccentric atheromatous changes. No significant narrowing by NASCET criteria. The mid to distal internal carotid artery is patent. No dissection. Left external carotid artery: Unremarkable. No occlusion. Left vertebral artery: Unremarkable. No occlusion or significant stenosis. No dissection. Aorta: The aortic arch is patent without dissection or aneurysm. NECK: Bones/joints: Unremarkable. No acute fracture. Soft tissues: Unremarkable. Thyroid: The left thyroid lobe remains markedly abnormal and enlarged with extension posteriorly at the thoracic inlet causing some rightward deviation of the trachea. Innumerable nodules and regions of calcification appears similar. Lung apices: Clear. CAROTID STENOSIS REFERENCE USING NASCET CRITERIA: % ICA stenosis = (1 - narrowest ICA diameter/diameter of distal cervical ICA) x 100. Mild - <50% stenosis. Moderate - 50-69% stenosis. Severe - 70-94% stenosis. Near occlusion - 95-99% stenosis. Occluded - 100% stenosis. IMPRESSION: 1. Negative cervical CTA examination. No significant alteration from the prior examination. 2. Incidental markedly abnormal left thyroid gland, stable in appearance from the previous examination. Communications: 06/06/24 21:53 Call Doctor Regarding Stroke. A telephone report of the findings was given to and confirmed by Dr. Eldridge on 06/06 21:53 (-04: 00) Electronically signed by: Dwight Borrego MD 06/06/24 21:53 PM ECG Data Attestation: I personally reviewed and interpreted this ECG as follows: Additional Comments: Sinus rhythm with a rate in 91. OR QRS and QTc intervals are within normal limits. No ST elevation or ST depression. Significant artifact secondary to patient movement. [facility] Narrative 2102: The patient was evaluated in room B1. A complete history and physical exam was performed Cardiac monitoring: An order was placed for continuous cardiac monitoring. The monitor shows a rate of 90 with sinus rhythm interpreted by me Patient's symptoms have resolved and her NIHSS is currently 0. EMS reports that the patient's dysarthria and difficulty speaking have significantly improved. No code stroke will be called at this time is thought the patient is most likely having a TIA. 2199: Vital signs stable. CT of the head CTA angio head and neck negative. Patient will be admitted for TIA. Impression & Plan TIA (transient ischemic attack) Discharge Plan Visit Data Chief Complaint: Weakness Stated Complaint: WEAKNESS SINCE 1999 ED Provider: Pieter Gupta Discharge Problem: TIA (transient ischemic attack) Patient Disposition: Being Evaluated by Hospitalist Prescriptions Prescriptions: No Action turmeric 400 mg Capsule 400 mg PO QAM methimazole 5 mg Tablet 5 mg PO QAM escitalopram oxalate 10 mg Tablet 10 mg PO HS Advanced Probiotic 625 mg (10 billion cell) capsule 1 cap PO .MID AFTERNOON latanoprost 0.005 % drops 1 drp OPR HS aspirin 81 mg tablet,delayed release (DR/EC) 81 mg PO QAM carbamazepine 400 mg tablet extended release 12 hr 400 mg PO Q12H olopatadine 0.1 % Drops 1 drp OPB DAILY PRN (Reason: allergies) vitamin B complex Tablet 1 tab PO QDL multivitamin with minerals Tablet 1 tab PO QDL glucosamine-chondroitin [Osteo Bi-Flex] 250-200 mg Tablet 1 tab PO BID calcium carbonate-vitamin D3 [Calcium 500 + D] 500 mg-5 mcg (200 unit) Tablet 1 tab PO BID
[2024-06-07] MEDS: SODIUM CHLORIDE 0.9% 1,000 ML IV SCH (01:01)
[2024-06-07] MEDS: SODIUM CHLORIDE 0.65% NA SOLN 45 ML (OCEAN) STA (03:36)
[2024-06-07 06:08] LABS: BUN Creatinine Ratio 26.4 (10-20); Basophils # (auto) 0.07 K/uL (0.00-0.20); Basophils % (auto) 0.8 %; Calcium 8.8 mg/dl (8.6-10.3); Creatinine Clr Calc Pharmacy 80.7 ml/min; Eosinophils % (auto) 1.1 %; Est GFR (African American) 106.1 ml/min; Est GFR (Non-African American) 91.6 ml/min; Hematocrit (blood only) 38.6 % (37.0-47.0); Hemoglobin 12.9 g/dl (12.0-16.0); Immature Granulocytes # (auto) 0.03 K/uL (0.01-0.20); Immature Granulocytes % (auto) 0.3 %; Lymphocytes # (auto) 1.86 K/uL (1.20-3.40); Lymphocytes % (auto) 21.1 %; Mean Corpuscular Hemoglobin 31.3 pg (25.0-34.0); Mean Corpuscular Hgb Conc 33.4 g/dL (32.0-36.0); Mean Corpuscular Volume 93.7 fL (80.0-100.0); Mean Platelet Volume 9.2 fL (9.4-12.4); Monocytes # (auto) 0.63 K/uL (0.11-0.59); Monocytes % (auto) 7.2 %; Neutrophils # (auto) 6.12 K/uL (1.40-6.50); Neutrophils % (auto) 69.5 %; Platelet Count 253 K/uL (130-400); Potassium 4.2 mmol/L (3.5-5.1); RDW Coefficient of Variation 12.4 % (11.5-14.5); RDW Standard Deviation 43.1 fL (36.4-46.3); Red Blood Count 4.12 M/uL (4.20-5.40); White Blood Count 8.81 K/ul (4.8-10.8)
[2024-06-07 06:23] LABS: Thyroid Stimulating Hormone 0.906 uIu/ml (0.300-4.500)
[2024-06-07 07:08] LABS: iSTAT Creatinine 0.6 mg/dl (0.6-1.3); iSTAT Hemoglobin 14.3 g/dl (12.0-16.0); iSTAT Ionized Calcium 1.13 mmol/l (1.12-1.32); iSTAT Potassium 3.8 mmol/L (3.3-5.0)
[2024-06-07 07:18] LABS: Estimated Average Glucose 105 mg/dl; Hemoglobin A1C 5.3 % (4.5-5.6)
--- NOTE | 2024-06-07 07:46 | Electrocardiogram Report ---
Test Reason : Blood Pressure : */* mmHG Vent. Rate : 91 BPM Atrial Rate : 91 BPM P-R Int : 168 ms QRS Dur : 96 ms QT Int : 384 ms P-R-T Axes : 88 26 33 degrees QTcB Int : 472 ms Poor data quality, interpretation may be adversely affected Normal sinus rhythm Normal ECG When compared with ECG of 04-Sep-2023 08:02, No significant change was found Confirmed by Reji Beavers ([id number]) on 06/07/2024 7:45:58 AM Referred By: REFERRED SELF Confirmed By: Reji Beavers
--- NOTE | 2024-06-07 08:03 | XRay Report ---
XR chest 1V portable HISTORY: neuro deficit, acute stroke suspected COMPARISON: Chest 11/08/2022. FINDINGS: There is a large hiatal hernia again noted. The heart is mildly enlarged. No evidence for p ulmonary edema. Left basilar densities are nonspecific. Right tracheal deviation is likely due to the patient's known left thyroid goiter. IMPRESSION: 1. Large hiatus hernia, unchanged. 2. Large left thyroid goiter resulting in right tracheal deviation, unchanged. 3. Left basilar densities are nonspecific and may represent atelectasis from the hiatal hernia. ACT 112: Negative or not required by law. Electronically signed by: Dante Fregoso M.D. 06/07/2024 8:01 AM
[2024-06-07] MEDS: CALCIUM 600MG + VIT D 400 IU TAB PO SCH (08:58)
[2024-06-07] MEDS: Olopatadine 0.1 % Drops - ORDER AWAITING ACTION SCH (08:58)
[2024-06-07] MEDS: ASPIRIN 81 MG ECTAB PO SCH (08:58)
[2024-06-07] MEDS: methIMAzole 5 MG TABLET PO SCH (08:59)
[2024-06-07] MEDS: carBAMazepine XR 200 MG TABCR PO SCH (08:59)
[2024-06-07] MEDS ORDERED: NON-FORMULARY MEDICATION (Glucosamine-Chondroitin [Osteo Bi-Flex] 250-200 mg Tablet) PO SCH (09:00)
[2024-06-07] MEDS: VITAMIN B COMPLEX TAB PO SCH (11:36)
[2024-06-07] MEDS: ADVANCED PROBIOTIC 625 MG CAPSULE PO SCH (11:36)
[2024-06-07] MEDS: CEROVITE ADV FORMULA TAB PO SCH (11:36)
--- NOTE | 2024-06-07 12:19 | Hospitalist Progress Note ---
Date of Service June 07, 2024 Assessment & Plan (1) TIA (transient ischemic attack): Plan: 79-year-old female with past medical history significant for multinodal goiter, osteoarthritis of both knees, osteoporosis, neuropathy, epilepsy, GERD generalized anxiety,, depression, history of TIA who lives alone at home comes because of strokelike symptoms. Around 8 PM patient was ready to go to bed when she felt very weak and whenever she feels weak she uses walker and at the same time she was also having slurred speech and was brought to the hospital. Patient's daughter is in the room. As per daughter whenever patient feels weak she gets on and off slurred speech but today it was more profound. It lasted for about half hour. She would only speak small sentences and was very slurred. Currently patient is back to her baseline. Currently alert and oriented. Denies any headache. No dizziness. No blurred vision. She has allergies and has runny nose and chronic cough. No difficulty swallowing. No chest pain or shortness of breath. No nausea. No abdominal pain. Normal bowel and bladder movements. Currently resting comfortably and hemodynamics are okay. Strokelike symptoms-involving only transient slurred speech without any other neurological symptoms Possible TIA Transient slurred speech-completely resolved CT head, CTA head and neck unremarkable Continue home aspirin Telemetry-no arrhythmias noted Hemoglobin A1c is 5.3, unremarkable lipid profile and TSH is normal Neurochecks Speech evaluation in a.m.-appreciate input and recommendation PT OT evaluation-she has been ambulating in the hallway without difficulties Awaiting neurology evaluation and recommendation History of seizures On carbamazepine No evidence of seizure Depression Generalized anxiety disorder On Lexapro Multinodular goiter-CT scan showed enlarged left thyroid with posterior extension and deviation with mild pressure on the trachea but remains similar as before Has been following regularly outpatient provider Will follow TSH-noted On methimazole-will continue DVT prophylaxis SCDs Disposition Telemetry Full code. Admission and Anticipated Discharge Date Admission Date: June 06, 2024 Subjective 06/07/2024 The patient was seen and examined in telemetry unit She was admitted with transient tach of slurred speech without any other neurological symptoms Her slurred speech has resolved and she does not have any other neurological symptoms She is very claustrophobic and cannot take any indoor MRI without sedation Review of Systems Review of Systems: All systems reviewed and are unremarkable except as noted below Physical Exam Physical Exam: Sitting on a chair without any acute distress Constitutional: well developed, well nourished and average body habitus; not ill appearing Eyes: PERRL, conjunctivae normal, anicteric sclerae ENMT: external ear and nose normal, oropharynx normal Neck: trachea midline, no thyromegaly Respiratory: no respiratory distress Auscultation: lungs clear to auscultation bilaterally Cardiovascular: Rate/Rhythm: regular rate and regular rhythm; not tachycardic Heart Sounds: normal S1 and normal S2; no murmur Extremities: no edema Gastrointestinal (Abdomen): Inspection/Auscultation: normal bowel sounds; abdomen not distended Percussion/Palpation: abdomen soft; abdomen nontender Musculoskeletal: No acute arthritis involving any of the joints Neurologic: normal touch/pain/proprioception, moves all extremities and + focal motor deficit Alert awake and oriented. No Dysarthria ,dysphagia or dysphasia Psychiatric: A+Ox3, euthymic affect Lymphatic: no cervical or axillary lymphadenopathy Results & Data Results & Data Vital Signs (Past 12 Hours) Vital Signs Temp Pulse Resp BP Pulse Ox O2 Del Method 06/07/24 11:28 36.7 C 80 18 135/82 96 Room Air 06/07/24 08:11 36.5 C 84 18 121/72 94 Room Air 06/07/24 02:47 36.5 C 86 18 108/70 96 Room Air 06/07/24 00:34 36.4 C L 100 H 15 148/88 H 97 Room Air Laboratory Results Short CBC 06/06/24 06/07/24 Range/Units 21:04 05:19 WBC 9.18 8.81 (4.8-10.8) K/ul Hgb 14.4 12.9 (12.0-16.0) g/dl Hct 43.3 38.6 (37.0-47.0) % Plt Count 289 253 (130-400) K/uL BMP 06/06/24 06/07/24 21:04 05:19 Sodium 141 139 Potassium 3.8 4.2 Chloride 105 108 H Carbon Dioxide 29 27 BUN 19 14 Creatinine 0.61 0.53 L Glucose 103 H 105 H Calcium 9.2 8.8 Liver Function 06/06/24 Range/Units 21:04 Total Bilirubin 0.3 (0.2-1.0) mg/dl AST 17 (13-39) U/L ALT 12 (7-52) U/L Alkaline Phosphatase 130 H (34-104) U/L Albumin 4.4 (3.4-5.0) gm/dl Medications Administered Current Inpatient Medications Acetaminophen (Acetaminophen 325 Mg Tab) 650 mg PO Q4H PRN PRN Reason: Pain or Fever Stop: 07/07/24 00:33 Aspirin (Aspirin 81 Mg Ectab) 81 mg PO QAM [facility] Stop: 07/07/24 08:59 Last Admin: 06/07/24 08:58 Dose: 81 mg Calcium/Vitamin D (Calcium 600mg + Vit D 400 Iu Tab) 1 tab PO BID [facility] Stop: 07/07/24 08:59 Last Admin: 06/07/24 08:58 Dose: 1 tab Carbamazepine (Carbamazepine Xr 200 Mg Tabcr) 400 mg PO Q12 [facility] Stop: 07/07/24 08:59 Last Admin: 06/07/24 08:59 Dose: 400 mg Escitalopram Oxalate (Escitalopram Oxalate 10 Mg Tab) 10 mg PO HS [facility] Stop: 07/07/24 20:59 Sodium Chloride (Nss) 1,000 mls @ 75 mls/hr IV .[id number] [facility] Stop: 06/07/24 13:53 Last Admin: 06/07/24 01:01 Dose: 75 mls/hr Lactobacillus Acidophilus (Advanced Probiotic 625 Mg Capsule) 1,250 mg PO DAILY@1200 [facility] Stop: 07/07/24 11:59 Last Admin: 06/07/24 11:36 Dose: 1,250 mg Latanoprost (Latanoprost 0.005% Op Soln 2.5 Ml Btl) 1 drops [facility] Stop: 07/07/24 20:59 Methimazole (Methimazole 5 Mg Tablet) 5 mg PO QAM [facility] Stop: 07/07/24 08:59 Last Admin: 06/07/24 08:59 Dose: 5 mg Miscellaneous (Olopatadine 0.1 % Drops - Order Awaiting Action) 1 each N/A QS [facility] Stop: 07/07/24 07:59 Last Admin: 06/07/24 08:58 Dose: Not Given Miscellaneous Information (Pharmacist Discharge Med Rec Consult) 1 each N/A UD PRN PRN Reason: Consult Stop: 07/07/24 00:33 Multivitamins/Minerals (Cerovite Adv Formula Tab) 1 tab PO DAILY@1200 [facility] Stop: 07/07/24 11:59 Last Admin: 06/07/24 11:36 Dose: 1 tab Nitroglycerin (Nitroglycerin Sl 0.4 Mg/Tab Tab) 0.4 mg SL Q5M PRN PRN Reason: Chest Pain Stop: 07/07/24 00:33 Polyethylene Glycol (Polyethylene (Miralax) 17 Gm Pack) 17 gm PO DAILY PRN PRN Reason: Constipation Stop: 07/07/24 00:33 Vitamin B Complex (Vitamin B Complex Tab) 1 tab PO DAILY@1200 [facility] Stop: 07/07/24 11:59 Last Admin: 06/07/24 11:36 Dose: 1 tab
--- NOTE | 2024-06-07 13:39 | Neurology Consultation ---
Date of Consultation June 07, 2024 Assessment & Plan (1) Stroke-like symptoms: Recommend continued stroke work up to include the following: MRI brain without contrast as tolerated Echocardiogram as part of complete stroke workup Continue frequent neurological assessments Obtain stat CT brain without contrast for any acute neurological decline Continue to monitor/control blood pressure & blood glucose Continue to monitor telemetry closely Recommend ZioPatch at DC if no evidence of arrhythmia during inpatient monitoring Continue to monitor renal and hepatic function, keep euvolemic Metabolic workup should include hgbA1c, fasting lipids, homocysteine, TSH, D Dimer, RPR, urinalysis Recommend DAPT for at least 3 weeks Recommend high dose statin therapy indefinitely if tolerated Ok from neurology perspective for VTE prophylaxis PT/OT/SLT to eval and treat Recommend eval for CEDRIC and consider outpatient polysomnography Telehealth Consultation Telehealth Information Telehealth Information: I performed this visit using a real-time telehealth connection between my location and the patients location ([facility]). 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 My office door was closed and no one else was present in the room with me.Patient (or authorized healthcare truck sales representative) provided consent to proceed with the visit, expressed an und erstanding of privacy and security of the telemedicine visit, and gave permission to have a hospital truck sales representative in the room in order to assist with the visit and to conduct portions of the visit, as needed. I informed the patient (or authorized healthcare truck sales representative) that I reviewed their record and presented the opportunity for them to ask any questions regarding the visit today. The patient agreed to participate. History of Present Illness Reason for Consultation: 79yo female with history of recurrent episodes of short lasting dysarthria presented after episode reportedly lasting less than one hour. Reportedly was getting ready for bed and began feeling weak and having slurred speech per family at bedside. This lasted less than one hour and has not recurred. She has undergone emergent stroke imaging including CT brain without contrast, personally reviewed today, revealing no overt evidence of hemorrhage. CT angiographic studies of head and neck, also personally reviewed today, reveal no overt evidence of large vessel occlusion or significant/flow limiting stenosis. I have performed televideo consultation. She is alert & oriented; able to answer all questions appropriately, name objects on televideo monitor, repeat phrases and perform complex/embedded commands without deficit. Neurological exam is non lateralizing/nonfocal in terms of motor strength and coordination. NIHSS=0. She reports significant claustrophobia and states she will not tolerate a closed MRI No reported cephalgia or cervicalgia Denies chest pain/palpitations or shortness of breath No reported changes in vision hearing dizziness syncope seizure like activity or paresthesia Denies recent fevers chills nausea vomiting changes in bowels or bladder Denies recent medication changes, recent illness or sick contacts, no reported recent travel Attending Physician: Melanie Schuler MD History of Present Illness Stroke like symptoms Allergies Allergy/AdvReac Type Severity Reaction Status Date / Time clams Allergy Unknown Dyspepsia, Verified 06/06/24 22:18 abdominal pain Home Medications Medication Instructions Recorded Confirmed Type turmeric 400 mg capsule 400 mg PO QAM 07/24/19 06/06/24 History calcium carbonate 500 mg-vitamin 1 tab PO BID 04/24/22 06/06/24 History D3 5 mcg (200 unit) tablet (Calcium 500 + D) carbamazepine 400 mg 400 mg PO Q12H 04/24/22 06/06/24 History tablet,extended release,12 hr glucosamine-chondroitin 250 mg-200 1 tab PO BID 04/24/22 06/06/24 History mg tablet (Osteo Bi-Flex) multivitamin with minerals 1 tab PO QDL 04/24/22 06/06/24 History olopatadine 0.1 % eye drops 1 drp OPB DAILY PRN allergies 04/24/22 06/06/24 History vitamin B complex 1 tab PO QDL 04/24/22 06/06/24 History L.acidop,casei,lactis,rham-B.lact,marcelle 1 cap PO .MID AFTERNOON 05/17/23 06/06/24 History 625 mg (10 billion cell) capsule (Advanced Probiotic) escitalopram oxalate 10 mg tablet 10 mg PO HS 05/17/23 06/06/24 History methimazole 5 mg tablet 5 mg PO QAM 05/17/23 06/06/24 History aspirin 81 mg tablet,delayed 81 mg PO QAM 09/04/23 06/06/24 History release latanoprost 0.005 % eye drops 1 drp OPR HS 09/04/23 06/06/24 History Patient History Medical History Hx of compression fracture of spine 2017, "mid back" > "healed" Anxiety Osteoarthritis TIA (transient ischemic attack) 04/2022, possible TIA (testing "inconclusive") Multinodular goiter Seizure disorder Hx epilepsy, no seizure x several years Arthritis Hiatal hernia Diverticular disease Hx of basal cell carcinoma s/p excision Glaucoma B/L Surgical History History of tonsillectomy History of tooth extraction Hx of cataract surgery R/L History of colonoscopy Hx laparoscopic cholecystectomy Laparoscopic Cholecystectomy (08/06/19): Grade 1 view, MAC#3, ETT 7.0, atraumatic Hx of basal cell carcinoma excision History of elbow surgery Right Family History Daughter Breast cancer Social History Smoking Status: Never smoker Second Hand Exposure: No; Do You Dip or Chew Tobacco: No; Tobacco Cessation Education Requested by Patient: No Hx Alcohol Use: No Hx Substance Use: No Preferred Language: Hong [place]er Communication Ability: Effective It Senior Analyst Required: No Beliefs That Will Affect Care: None marital status: Current Living Situation: Alone Current Living Situation Comment: Lives alone in apartment in [facility] [place] current occupational status: retired How many Children do You have: 1 Other Information That Helps Us Care for You: No Feels Safe at Home: Yes Safety Concerns: Feels Safe At This Time Assistive Devices: Glasses and Walker Physical Exam Neurological Examination: Mental Status: Awake and alert. Oriented to person, place, and time. Fluency naming repetition and comprehension appear grossly intact. Affect remains appropriate. CN testing: I: Denies changes in ability to smell II:Reports no changes in visual acuity III/IV/: No evidence of gaze preference, hippus, nystagmus or roving eye movements V: Facial sensation reportedly grossly intact to light touch bilaterally VII: Facial movements appear without evidence of asymmetry VIII: Hearing appears grossly intact to loud voice bilaterally IX/X: Palate appears to elevate symmetrically XI: Shoulder shrug appears symmetric/ grossly intact bilaterally XII: Tongue protrudes midline without evidence of biting Motor exam: Strength appears grossly intact/symmetric in all extremities Sensory: Sensation is reportedly grossly intact throughout Coordination: Finger to nose and heel to solomon were intact. No apparent evidence of dysmetria or dysdiadochokinesia Reflexes: Deferred Gait: Deferred Results & Data Vital Signs (Past 12 Hours) Vital Signs Temp Pulse Resp BP Pulse Ox O2 Del Method 06/07/24 11:28 36.7 C 80 18 135/82 96 Room Air 06/07/24 08:11 36.5 C 84 18 121/72 94 Room Air 06/07/24 02:47 36.5 C 86 18 108/70 96 Room Air Laboratory Results Abnormal lab results 06/06/24 06/06/24 06/07/24 Range/Units 21:04 21:06 05:19 RBC 4.12 L (4.20-5.40) M/uL MPV 9.3 L 9.2 L (9.4-12.4) fL Lymph # (Auto) 4.33 H (1.20-3.40) K/uL [place] # (Auto) 0.98 H 0.63 H (0.11-0.59) K/uL Chloride 108 H (98-107) mmol/L POC BUN 19 H (7-18) mg/dl Creatinine 0.53 L (0.6-1.2) mg/dl BUN/Creatinine Ratio 31.1 H 26.4 H (10-20) Glucose 103 H 105 H (70-99(Fasting)) mg/dl POC Glucose (other) 100 H (70-99) mg/dl Alkaline Phosphatase 130 H (34-104) U/L Globulin 2.0 L (2.5-4.0) gm/dl Albumin/Globulin Ratio 2.2 H (0.9-2) Diagnostic Findings Chest X-Ray 06/06/24 21:04 XR chest 1V portable HISTORY: neuro deficit, acute stroke suspected COMPARISON: Chest 11/08/2022. FINDINGS: There is a large hiatal hernia again noted. The heart is mildly enlarged. No evidence for pulmonary edema. Left basilar densities are nonspecific. Right tracheal deviation is likely due to the patient's known left thyroid goiter. IMPRESSION: 1. Large hiatus hernia, unchanged. 2. Large left thyroid goiter resulting in right tracheal deviation, unchanged. 3. Left basilar densities are nonspecific and may represent atelectasis from the hiatal hernia. ACT 112: Negative or not required by law. Electronically signed by: Dante Fregoso M.D. 06/07/2024 8:[address] 06/06/24 21:04 CR Exam(s): CT HEAD Without Contrast EXAM: CT Head Without Intravenous Contrast CLINICAL HISTORY: neuro deficit, acute stroke suspected. TECHNIQUE: Axial computed tomography images of the head/brain without intravenous contrast. CTDI is 36.18 mGy and DLP is 624.41 mGy-cm. Automated exposure control was utilized for the study. A dose lowering technique was utilized adhering to the principles of ALARA. COMPARISON: No relevant prior studies available. FINDINGS: Brain: No intracranial hemorrhage. No significant mass effect. No evidence for cortical infarct. Minimal prominence of the cerebral sulci and sylvian fissures noted. There is a suggestion of subtle periventricular deep white matter hypodense changes. Ventricles: No midline shift or ventriculomegaly. Bones/joints: Unremarkable. No acute fracture. Soft tissues: Unremarkable. Sinuses: Unremarkable as visualized. No acute sinusitis. Mastoid air cells: Unremarkable as visualized. No mastoid effusion. IMPRESSION: No acute intracranial process identified. Communications: Call Doctor Stroke Electronically signed by: Dwight Borrego MD 06/06/24 21:47 PM Head CTA 06/06/24 21:04 CR Exam(s): CTA HEAD With Contrast IV Amt: 119ml optiray 320 EXAM: CT Angiography Head With Intravenous Contrast CLINICAL HISTORY: neuro deficit, acute stroke suspected. TECHNIQUE: Axial computed tomographic angiography images of the head with intravenous contrast. CTDI is 64.32 mGy and DLP is 1160.39 mGy-cm. Automated exposure control was utilized for the study. A dose lowering technique was utilized adhering to the principles of ALARA. MIP reconstructed images were created and reviewed. CONTRAST: Patient received 119ml optiray 320 of IV contrast COMPARISON: No relevant prior studies available. FINDINGS: Right internal carotid artery: Moderate atherosclerotic calcification of the right cavernous and supraclinoid internal carotid artery. No significant narrowing. The petrous segment is patent. No aneurysm. Right anterior cerebral artery: Unremarkable. No occlusion or significant stenosis. No aneurysm. Right middle cerebral artery: Unremarkable. No occlusion or significant stenosis. No aneurysm. Right posterior cerebral artery: There is a dominant right posterior communicating branch serving the right posterior cerebral artery. The right posterior cerebral artery is patent. No occlusion or significant stenosis. No aneurysm. Right vertebral artery: Unremarkable as visualized. Left internal carotid artery: Mild atherosclerotic calcification of the left cavernous internal carotid artery. The petrous and supraclinoid segments are patent. No significant narrowing. No aneurysm. Left anterior cerebral artery: Unremarkable. No occlusion or significant stenosis. No aneurysm. Left middle cerebral artery: Unremarkable. No occlusion or significant stenosis. No aneurysm. Left posterior cerebral artery: There is a origin of the left posterior cerebral artery via the posterior communicating artery. The left posterior cerebral artery is patent. No occlusion or significant stenosis. No aneurysm. Left vertebral artery: Unremarkable as visualized. Basilar artery: Unremarkable. No occlusion or significant stenosis. No aneurysm. IMPRESSION: Negative intracranial CTA examination. Communications: Call Doctor Stroke Electronically signed by: Dwight Borrego MD 06/06/24 21:50 PM Neck CTA 06/06/24 21:04 CR Exam(s): CTA NECK With Contrast IV Amt: 119ml optiray 320 EXAM: CT Angiography Neck With Intravenous Contrast CLINICAL HISTORY: neuro deficit, acute stroke suspected. TECHNIQUE: Routine carotid CT angiography protocol was performed with intravenous contrast. NASCET criteria using the distal ICAs for comparison were used for evaluation of stenoses. CTDI is 64.32 mGy and DLP is 1160.39 mGy-cm. Automated exposure control was utilized for the study. A dose lowering technique was utilized adhering to the principles of ALARA. MIP reconstructed images were created and reviewed. CONTRAST: Patient received 119ml optiray 320 of IV contrast COMPARISON: CTA neck 04/24/2022 FINDINGS: VASCULATURE: Right common carotid artery: Unremarkable. No occlusion or significant stenosis. No dissection. Right internal carotid artery: Mild atherosclerotic calcification of the proximal right internal carotid artery without significant narrowing by NASCET criteria. The mid to distal internal carotid artery is patent. No dissection. Right external carotid artery: Unremarkable. No occlusion. Right vertebral artery: Unremarkable. No occlusion or significant stenosis. No dissection. Left common carotid artery: Unremarkable. No occlusion or significant stenosis. No dissection. Left internal carotid artery: Atherosclerotic calcification of the proximal left internal carotid artery at the carotid bifurcation with minimal eccentric atheromatous changes. No significant narrowing by NASCET criteria. The mid to distal internal carotid artery is patent. No dissection. Left external carotid artery: Unremarkable. No occlusion. Left vertebral artery: Unremarkable. No occlusion or significant stenosis. No dissection. Aorta: The aortic arch is patent without dissection or aneurysm. NECK: Bones/joints: Unremarkable. No acute fracture. Soft tissues: Unremarkable. Thyroid: The left thyroid lobe remains markedly abnormal and enlarged with extension posteriorly at the thoracic inlet causing some rightward deviation of the trachea. Innumerable nodules and regions of calcification appears similar. Lung apices: Clear. CAROTID STENOSIS REFERENCE USING NASCET CRITERIA: % ICA stenosis = (1 - narrowest ICA diameter/diameter of distal cervical ICA) x 100. Mild - <50% stenosis. Moderate - 50-69% stenosis. Severe - 70-94% stenosis. Near occlusion - 95-99% stenosis. Occluded - 100% stenosis. IMPRESSION: 1. Negative cervical CTA examination. No significant alteration from the prior examination. 2. Incidental markedly abnormal left thyroid gland, stable in appearance from the previous examination. Communications: 06/06/24 21:53 Call Doctor Regarding Stroke. A telephone report of the findings was given to and confirmed by Dr. Eldridge on 06/06 21:53 (-04: 00) Electronically signed by: Dwight Borrego MD 06/06/24 21:53 PM Medications Administered Home Medications Medication Instructions Recorded Confirmed Last Taken turmeric 400 mg capsule 400 mg PO QAM 07/24/19 06/06/24 06/06/24 calcium carbonate 500 mg-vitamin 1 tab PO BID 04/24/22 06/06/24 06/06/24 D3 5 mcg (200 unit) tablet (Calcium 500 + D) carbamazepine 400 mg 400 mg PO Q12H 04/24/22 06/06/24 06/06/24 tablet,extended release,12 hr x2 today glucosamine-chondroitin 250 mg-200 1 tab PO BID 04/24/22 06/06/24 06/06/24 mg tablet (Osteo Bi-Flex) multivitamin with minerals 1 tab PO QDL 04/24/22 06/06/24 06/05/24 olopatadine 0.1 % eye drops 1 drp OPB DAILY PRN allergies 04/24/22 06/06/24 06/26/23 08:00 vitamin B complex 1 tab PO QDL 04/24/22 06/06/24 06/05/24 L.acidop,casei,lactis,rham-B.lact,marcelle 1 cap PO .MID AFTERNOON 05/17/23 06/06/24 06/05/24 625 mg (10 billion cell) capsule (Advanced Probiotic) escitalopram oxalate 10 mg tablet 10 mg PO HS 05/17/23 06/06/24 06/06/24 methimazole 5 mg tablet 5 mg PO QAM 05/17/23 06/06/24 06/06/24 aspirin 81 mg tablet,delayed 81 mg PO QAM 09/04/23 06/06/24 06/06/24 release latanoprost 0.005 % eye drops 1 drp OPR HS 09/04/23 06/06/24 06/06/24 Active Medications Generic Name Dose Route Start Last Admin Trade Name Zeny PRN Reason Stop Dose Admin Aspirin 81 mg 06/07/24 09:00 06/07/24 08:58 Aspirin 81 Mg Ectab PO 07/07/24 08:59 81 mg QAM JUAN FRANCISCO Administration Calcium/Vitamin D 1 tab 06/07/24 09:00 06/07/24 08:58 Calcium 600mg + Vit D 400 Iu Tab PO 07/07/24 08:59 1 tab BID JUAN FRANCISCO Administration Carbamazepine 400 mg 06/07/24 09:00 06/07/24 08:59 Carbamazepine Xr 200 Mg Tabcr PO 07/07/24 08:59 400 mg Q12 JUAN FRANCISCO Administration Sodium Chloride 1,000 mls @ 75 mls/hr 06/07/24 00:34 06/07/24 01:01 Nss IV 06/07/24 13:53 75 mls/hr .[id number] JUAN FRANCISCO Administration Lactobacillus Acidophilus 1,250 mg 06/07/24 12:00 06/07/24 11:36 Advanced Probiotic 625 Mg Capsule PO 07/07/24 11:59 1,250 mg DAILY@1200 JUAN FRANCISCO Administration Methimazole 5 mg 06/07/24 09:00 06/07/24 08:59 Methimazole 5 Mg Tablet PO 07/07/24 08:59 5 mg QAM JUAN FRANCISCO Administration Miscellaneous 1 each 06/07/24 08:00 06/07/24 08:58 Olopatadine 0.1 % Drops - Order Awaiting Action N/A 07/07/24 07:59 Not Given QS JAUN FRANCISCO Multivitamins/Minerals 1 tab 06/07/24 12:00 06/07/24 11:36 Cerovite Adv Formula Tab PO 07/07/24 11:59 1 tab DAILY@1200 JUAN FRANCISCO Administration Vitamin B Complex 1 tab 06/07/24 12:00 06/07/24 11:36 Vitamin B Complex Tab PO 07/07/24 11:59 1 tab DAILY@1200 JUAN FRANCISCO Administration
[2024-06-07] MEDS: CLOPIDOGREL BISULFATE 75 MG TAB PO SCH (16:39)
[2024-06-07] MEDS: ATORVASTATIN 20 MG TAB PO SCH (16:41)
[2024-06-07] MEDS: ESCITALOPRAM OXALATE 10 MG TAB PO SCH (22:03)
[2024-06-07] MEDS: LATANOPROST 0.005% OP SOLN 2.5 ML BTL OPR SCH (22:13)
[2024-06-08 03:28] VITALS: RESP 18
[2024-06-08 07:43] LABS: Basophils # (auto) 0.07 K/uL (0.00-0.20); Eosinophils # (auto) 0.27 K/uL (0.00-0.50); Eosinophils % (auto) 3.9 %; Hematocrit (blood only) 39.6 % (37.0-47.0); Hemoglobin 13.6 g/dl (12.0-16.0); Immature Granulocytes # (auto) 0.01 K/uL (0.01-0.20); Immature Granulocytes % (auto) 0.1 %; Lymphocytes # (auto) 2.28 K/uL (1.20-3.40); Lymphocytes % (auto) 32.5 %; Mean Corpuscular Hemoglobin 32.2 pg (25.0-34.0); Mean Corpuscular Hgb Conc 34.3 g/dL (32.0-36.0); Mean Corpuscular Volume 93.8 fL (80.0-100.0); Mean Platelet Volume 9.1 fL (9.4-12.4); Monocytes # (auto) 0.79 K/uL (0.11-0.59); Monocytes % (auto) 11.3 %; Neutrophils # (auto) 3.59 K/uL (1.40-6.50); Neutrophils % (auto) 51.2 %; Platelet Count 243 K/uL (130-400); RDW Coefficient of Variation 12.7 % (11.5-14.5); RDW Standard Deviation 43.8 fL (36.4-46.3); Red Blood Count 4.22 M/uL (4.20-5.40); White Blood Count 7.01 K/ul (4.8-10.8)
[2024-06-08 07:53] LABS: Calcium 8.7 mg/dl (8.6-10.3); Creatinine Clr Calc Pharmacy 74.4 ml/min; Est GFR (Non-African American) 88.9 ml/min; Phosphorus 3.1 mg/dl (2.5-4.9); Potassium 3.9 mmol/L (3.5-5.1)
--- NOTE | 2024-06-08 09:36 | Pharmacy Report ---
- Date of Service June 08, 2024 - Pharmacy CVA/TIA Medication Review Medications to Prevent Stroke handout has been added to the patients discharge packet. Antiplatelet(s) * Patient placed on DAPT (aspirin 81 mg once daily and clopidogrel 75 mg once daily) x 3 weeks. Cholesterol * High intensity statin deferred due to statin intolerance DVT Prophylaxis * SCD thigh Therapeutic Anticoagulation * No history of Afib/Aflutter noted Type 2 Diabetes * Patient does not have T2DM
[2024-06-08 11:03] VITALS: BP 118/76; PULSE 79; TEMP 98.2; O2SAT 95
--- NOTE | 2024-06-08 11:37 | Hospitalist Progress Note ---
Date of Service June 08, 2024 Assessment & Plan (1) TIA (transient ischemic attack): Plan: 79-year-old female with past medical history significant for multinodal goiter, osteoarthritis of both knees, osteoporosis, neuropathy, epilepsy, GERD generalized anxiety,, depression, history of TIA who lives alone at home comes because of strokelike symptoms. Around 8 PM patient was ready to go to bed when she felt very weak and whenever she feels weak she uses walker and at the same time she was also having slurred speech and was brought to the hospital. Patient's daughter is in the room. As per daughter whenever patient feels weak she gets on and off slurred speech but today it was more profound. It lasted for about half hour. She would only speak small sentences and was very slurred. Currently patient is back to her baseline. Currently alert and oriented. Denies any headache. No dizziness. No blurred vision. She has allergies and has runny nose and chronic cough. No difficulty swallowing. No chest pain or shortness of breath. No nausea. No abdominal pain. Normal bowel and bladder movements. Currently resting comfortably and hemodynamics are okay. Strokelike symptoms-involving only transient slurred speech without any other neurological symptoms Possible TIA Transient slurred speech-completely resolved CT head, CTA head and neck unremarkable Continue home aspirin Telemetry-no arrhythmias noted Hemoglobin A1c is 5.3, unremarkable lipid profile and TSH is normal Neurochecks Speech evaluation in a.m.-appreciate input and recommendation Appreciate neurologist input and recommendationwill need aspirin Plavix for 21 days and statin for cholesterol management Echo of the heart showedEF 60 to 65%, RV is normal in size, right ventricular systolic function is normal and there is mild tricuspid regurgitation. She has a PT evaluation recommended home MRI cannot be done in the hospital She will be discharged home this afternoon and she will have open MRI as an outpatient. And also she will need Zio patch and outpatient sleep study History of seizures On carbamazepine No evidence of seizure Depression Generalized anxiety disorder On Lexapro Multinodular goiter-CT scan showed enlarged left thyroid with posterior exte nsion and deviation with mild pressure on the trachea but remains similar as before Has been following regularly outpatient provider Will follow TSH-noted On methimazole-will continue DVT prophylaxis SCDs Disposition Telemetry Full code. Admission and Anticipated Discharge Date Admission Date: June 06, 2024 Subjective 06/07/2024 The patient was seen and examined in telemetry unit She was admitted with transient tach of slurred speech without any other neurological symptoms Her slurred speech has resolved and she does not have any other neurological symptoms She is very claustrophobic and cannot take any indoor MRI without sedation 06/08/2024 The patient was seen and examined in telemetry unit She has been feeling much better and denies any more neurological symptoms She has had physical therapy evaluation Her slurred speech has completely resolved Review of Systems Review of Systems: All systems reviewed and are unremarkable except as noted below Physical Exam Physical Exam: Sitting on a chair without any acute distress Constitutional: well developed, well nourished and average body habitus; not ill appearing Eyes: PERRL, conjunctivae normal, anicteric sclerae ENMT: external ear and nose normal, oropharynx normal Neck: trachea midline, no thyromegaly Respiratory: no respiratory distress Auscultation: lungs clear to auscultation bilaterally Cardiovascular: Rate/Rhythm: regular rate and regular rhythm; not tachycardic Heart Sounds: normal S1 and normal S2; no murmur Extremities: no edema Gastrointestinal (Abdomen): Inspection/Auscultation: normal bowel sounds; abdomen not distended Percussion/Palpation: abdomen soft; abdomen nontender Neurologic: normal touch/pain/proprioception, moves all extremities and + focal motor deficit Psychiatric: A+Ox3, euthymic affect Lymphatic: no cervical or axillary lymphadenopathy Results & Data Results & Data Vital Signs (Past 12 Hours) Vital Signs Temp Pulse Pulse Resp BP Pulse Ox O2 Del Method 06/08/24 11:03 36.8 C 79 18 118/76 95 Room Air 06/08/24 07:59 36.7 C 78 18 123/76 93 Room Air 06/08/24 03:27 36.6 C 82 18 141/76 H 98 Room Air 06/07/24 23:42 81 Laboratory Results Short CBC 06/08/24 Range/Units 07:20 WBC 7.01 (4.8-10.8) K/ul Hgb 13.6 (12.0-16.0) g/dl Hct 39.6 (37.0-47.0) % Plt Count 243 (130-400) K/uL BMP 06/08/24 07:20 Sodium 141 Potassium 3.9 Chloride 109 H Carbon Dioxide 25 BUN 11 Creatinine 0.58 L Glucose 93 Calcium 8.7 Medications Administered Current Inpatient Medications Acetaminophen (Acetaminophen 325 Mg Tab) 650 mg PO Q4H PRN PRN Reason: Pain or Fever Stop: 07/07/24 00:33 Aspirin (Aspirin 81 Mg Ectab) 81 mg PO [facility] Stop: 07/07/24 08:59 Last Admin: 06/08/24 08:00 Dose: 81 mg Atorvastatin Calcium ([facility] 20 Mg Tab) [facility] [place]: 07/07/24 13:59 Last Admin: 06/08/24 08:00 Dose: 20 mg Calcium/Vitamin D (Calcium 600mg + Vit D 400 Iu Tab) 1 tab PO BID [facility] Stop: 07/07/24 08:59 Last Admin: 06/08/24 08:00 Dose: 1 tab Carbamazepine (Carbamazepine Xr 200 Mg Tabcr) 400 mg PO Q12 [facility] Stop: 07/07/24 08:59 Last Admin: 06/08/24 08:00 Dose: 400 mg Clopidogrel Bisulfate (Clopidogrel Bisulfate 75 Mg Tab) 75 mg PO [facility] Stop: 07/07/24 13:59 Last Admin: 06/08/24 08:01 Dose: 75 mg Escitalopram Oxalate (Escitalopram Oxalate 10 Mg Tab) 10 mg PO [facility] Stop: 07/07/24 20:59 Last Admin: 06/07/24 22:03 Dose: 10 mg Lactobacillus Acidophilus (Advanced Probiotic 625 Mg Capsule) 1,250 mg PO DAILY@1200 [facility] Stop: 07/07/24 11:59 Last Admin: 06/07/24 11:36 Dose: 1,250 mg Latanoprost (Latanoprost 0.005% Op Soln 2.5 Ml Btl) 1 drops OPR [facility] Stop: 07/07/24 20:59 Last Admin: 06/07/24 22:13 Dose: 1 drops Methimazole (Methimazole 5 Mg Tablet) [facility] [place]: 07/07/24 08:59 Last Admin: 06/08/24 08:01 Dose: 5 mg Miscellaneous (Olopatadine 0.1 % Drops - Order Awaiting Action) 1 each N/A QS [facility] Stop: 07/07/24 07:59 Last Admin: 06/07/24 16:32 Dose: Not Given Multivitamins/Minerals (Cerovite Adv Formula Tab) 1 tab PO DAILY@1200 [facility] Stop: 07/07/24 11:59 Last Admin: 06/07/24 11:36 Dose: 1 tab Nitroglycerin (Nitroglycerin Sl 0.4 Mg/Tab Tab) 0.4 mg SL Q5M PRN PRN Reason: Chest Pain Stop: 07/07/24 00:33 Polyethylene Glycol (Polyethylene (Miralax) 17 Gm Pack) 17 gm PO DAILY PRN PRN Reason: Constipation Stop: 07/07/24 00:33 Vitamin B Complex (Vitamin B Complex Tab) 1 tab PO DAILY@1200 [facility] Stop: 07/07/24 11:59 Last Admin: 06/07/24 11:36 Dose: 1 tab
--- NOTE | 2024-06-08 16:27 | Discharge Summary ---
Date of Service June 08, 2024 Admission HPI Per Admitting Provider 79-year-old female with past medical history significant for multinodal goiter, osteoarthritis of both knees, osteoporosis, neuropathy, epilepsy, GERD generalized anxiety,, depression, history of TIA who lives alone at home comes because of strokelike symptoms. Around 8 PM patient was ready to go to bed when she felt very weak and whenever she feels weak she uses walker and at the same time she was also having slurred speech and was brought to the hospital. Patient's daughter is in the room. As per daughter whenever patient feels weak she gets on and off slurred speech but today it was more profound. It lasted for about half hour. She would only speak small sentences and was very slurred. Currently patient is back to her baseline. Currently alert and oriented. Denies any headache. No dizziness. No blurred vision. She has allergies and has runny nose and chronic cough. No difficulty swallowing. No chest pain or shortness of breath. No nausea. No abdominal pain. Normal bowel and bladder movements. Currently resting comfortably and hemodynamics are okay. Past medical history. As mentioned above Past surgical history. Relieve inner eye pressure bilaterally. Bilateral cataracts. Repair of elbow fracture. Social history. Lives alone. No smoking. Alcohol rarely. No drug use. Family history. Mother had coronary disease. Uterine cancer. Father had emphysema. Daughter had breast cancer. Admission Exam Per Admitting Provider Physical Exam: General- Not in distress Head- atraumatic Eyes- PERRL, EOMI. ENT- oropharynx clear Neck- supple, no JVD. Lungs- clear to auscultation no wheezing or crackles. Heart- regular rate and rhythm; no murmur, no gallop. Abdomen- normal bowel sounds, soft, nontender, no distension. Extremities- no pretibial edema, no erythema seen Neuro- alert, oriented ; PERRL, EOMI; no facial palsy; no dysarthria; motor 5/5 bilaterally; no pronator drift, finger nose test normal.coordination of movements normal. Skin- warm & dry Principal Diagnosis Strokelike symptoms, transient dysarthria, history of seizure disorder, left multinodular goiter Discharge Exam Sitting on a chair without any acute distress Constitutional well developed, well nourished and average body habitus; not ill appearing Eyes PERRL, conjunctivae normal, anicteric sclerae ENMT external ear and nose normal, oropharynx normal Neck trachea midline, no thyromegaly Respiratory no respiratory distress Auscultation: lungs clear to auscultation bilaterally Cardiovascular Rate/Rhythm: regular rate and regular rhythm; not tachycardic Heart Sounds: normal S1 and normal S2; no murmur Extremities: no edema Gastrointestinal (Abdomen) Inspection/Auscultation: normal bowel sounds; abdomen not distended Percussion/Palpation: abdomen soft; abdomen nontender Neurologic normal touch/pain/proprioception, moves all extremities and + focal motor deficit Psychiatric A+Ox3, euthymic affect Lymphatic no cervical or axillary lymphadenopathy Discharge Data Allergies Allergy/AdvReac Type Severity Reaction Status Date / Time clams Allergy Unknown Dyspepsia, Verified 06/06/24 22:18 abdominal pain Consultations 06/06/24 21:58 ED Decision to Admit Stat 06/07/24 08:00 Consult Neurology Routine Ordered Studies 06/06/24 21:04 CT angio head w con Stat CT angio neck with con Stat CT head/brain wo con Stat Hospital Course (1) TIA (transient ischemic attack): 79-year-old female with past medical history significant for multinodal goiter, osteoarthritis of both knees, osteoporosis, neuropathy, epilepsy, GERD generalized anxiety,, depression, history of TIA who lives alone at home comes because of strokelike symptoms. Around 8 PM patient was ready to go to bed when she felt very weak and whenever she feels weak she uses walker and at the same time she was also having slurred speech and was brought to the hospital. Patient's daughter is in the room. As per daughter whenever patient feels weak she gets on and off slurred speech but today it was more profound. It lasted for about half hour. She would only speak small sentences and was very slurred. Currently patient is back to her baseline. Currently alert and oriented. Denies any headache. No dizziness. No blurred vision. She has allergies and has runny nose and chronic cough. No difficulty swallowing. No chest pain or shortness of breath. No nausea. No abdominal pain. Normal bowel and bladder movements. Currently resting comfortably and hemodynamics are okay. Strokelike symptoms-involving only transient slurred speech without any other neurological symptoms Possible TIA Transient slurred speech-completely resolved CT head, CTA head and neck unremarkable Continue home aspirin Telemetry-no arrhythmias noted Hemoglobin A1c is 5.3, unremarkable lipid profile and TSH is normal Neurochecks Speech evaluation in a.m.-appreciate input and recommendation Appreciate neurologist input and recommendationpreciousll need aspirin Plavix for 21 days and statin for cholesterol management Echo of the heart showedEF 60 to 65%, RV is normal in size, right ventricular systolic function is normal and there is mild tricuspid regurgitation. She has a PT evaluation recommended home MRI cannot be done in the hospital She will be discharged home this afternoon and she will have open MRI as an outpatient. And also she will need Zio patch and outpatient sleep study History of seizures On carbamazepine No evidence of seizure Depression Generalized anxiety disorder On Lexapro Multinodular goiter-CT scan showed enlarged left thyroid with posterior extension and deviation with mild pressure on the trachea but remains similar as before Has been following regularly outpatient provider Will follow TSH-noted On methimazole-will continue DVT prophylaxis SCDs Disposition Telemetry Full code. Total Time Total Time Spent Total Time Spent (In Minutes): 40 minutes Discharge Plan Discharge Items Patient Disposition: Home - Self-Care Reason For Visit: STROKE-LIKE SYMPTOMS Discharge Diagnosis: Strokelike symptoms, transient dysarthria, history of seizure disorder, left multinodular goiter Condition on Discharge: Good Activity: Resume your previous activity Non-emergency contact: Primary Care Provider Call non-emergency contact if: you have any medication questions and your symptoms worsen Follow-up/Referrals: Elvia Rodriguez MD [Primary Care Provider] - (Date & Time 06/16/2024 11:00 AM Provider Elvia Rodriguez MD Department General Internal Medicine [facility] ) Jenny Nicole PA-C [Physician Grain Packer] - (Date & Time 06/23/2024 12:30 PM Provider Jenny Nicole PA-C Department Neurology [facility] ) Diet: Heart Healthy Addtl Attending Provider Instructions: Please take precautions to avoid falls Take aspirin and Plavix for a total of 20 days and following that continue with only aspirin Please keep appointments with your healthcare providers You will need to have a Zio patch and also a sleep study as an outpatient Your MRI can be scheduled by your PCP as open MRI of the head without contrast Pending Studies at Discharge: No Stand-Alone Forms: Dhingana, Smoking Cessation, Medications to Prevent Stroke Medications and DC Order Prescriptions: New clopidogrel 75 mg Tablet 75 mg PO QAM Qty: 20 0RF Continued turmeric 400 mg Capsule 400 mg PO QAM methimazole 5 mg Tablet 5 mg PO QAM escitalopram oxalate 10 mg Tablet 10 mg PO HS Advanced Probiotic 625 mg (10 billion cell) capsule 1 cap PO .MID AFTERNOON latanoprost 0.005 % drops 1 drp OPR HS aspirin 81 mg tablet,delayed release (DR/EC) 81 mg PO QAM carbamazepine 400 mg tablet extended release 12 hr 400 mg PO Q12H olopatadine 0.1 % Drops 1 drp OPB DAILY PRN (Reason: allergies) vitamin B complex Tablet 1 tab PO QDL multivitamin with minerals Tablet 1 tab PO QDL glucosamine-chondroitin [Osteo Bi-Flex] 250-200 mg Tablet 1 tab PO BID calcium carbonate-vitamin D3 [Calcium 500 + D] 500 mg-5 mcg (200 unit) Tablet 1 tab PO BID Discharge Orders: Discharge Order (Routine); Ordered 06/08/24 Ordered By: Melanie Schuler Admission Data Admit Date/Time: 06/06/24 23:12 Attending Provider: Melanie Schuler Admit Provider: Dmitriy Lora Primary Care Provider: Elvia Rodriguez Other Providers: Dmitriy Lora; Thu Bright; Charlie Saleh; Thu Singletary; Timbo Muir; Joe Jones; Gilberto Tran; Reji Arvizu; Jenny Nicole; Monster Almaraz; Arturo Padron; Lion Santiago; Payam العراقي; Jennifer Valencia; Simona Castellano; Reji Tinoco; Jared Mccabe Other Interventions: Discharge Summary Assessment (RN) Last Done: 06/08/24 15:24
[2024-06-08] MEDS: STROKE PATIENT DISCHARGE STA (17:28)
== END 2024-06-08 16:30 | disposition home or self-care (01) | DRG 69 ==
LOC: ED 20:59 → 2S 23:12 → SUATTDRO 23:12 → 2S 06-07 00:45

== ENCOUNTER 2024-06-20 19:12 | Inpatient (IN) ==
[2024-06-20] MEDS: OPTIRAY 320 125ml IV ONE (19:18)
--- OUTSIDE RECORDS SUMMARY | 2024-06-20 19:19 | External Medical Summary | Summary of Care ---
Author Name Unknown Organization [facility] Address [address] [place] [address] Phone [phone] Care Team Providers Care Ict Development Manager Name Role Phone Elvia Rodriguez MD Primary Care Provider + Reason for Visit * Reason Onset Date Comments Hospital Follow-Up 06/10/2024 Encounter Details Date Type Department Care Team (Late st Contact Info) Description 06/10/2024 Telephone General Internal Medicine [facility] [place] [address] [facility] [place] [address] Elvia Rodriguez MD [address] [place] [address] Hospital Follow-Up Allergies Active Allergy Reactions Criticality Noted Date Comments Bee Venom Edema Other 02/18/2017 "itching, red, swelling, but only at the place where I got stung" Clam Shell Diarrhea 04/24/2022 Pollen 08/14/2022 Unsure exactly what, but has some sort of seasonal allergy documented as of this encounter (statuses as of 06/19/2024) Medications Medication Sig Dispensed Refills Start Date [...] zoster vac recomb adjuvanted (SHINGRIX) 50 MCG/0.5ML injectionIndications :Need for vaccination for zoster Inject 0.5 mL into a large muscle now and repeat dose in 60 to 180 days 1 Each 1 06/16/2020 Active Aspirin 81 MG Oral Tablet Chewable Take 1 Tablet by mouth in the morning. Active Latanoprost 0.005 % Ophthalmic Emulsion Instill 1 Drop into the right eye at bedtime. 09/04/2023 Active Triamcinolone Acetonide 0.1 % External Lotion (Aristocort)Indicati ons:Psoriasis apply topically to affected areas on scalp daily. after 2 weeks use several times a week as needed 60 mL 12/03/2023 Active Escitalopram Oxalate 10 MG Oral Tablet (Lexapro)Indications :NAVIN (generalized anxiety disorder),Current moderate episode of major depressive disorder, unspecified whether recurrent (HCC) TAKE 1 TABLET BY MOUTH EVERY MORNING 90 Tablet 1 02/20/2024 Active carBAMazepine ER 400 MG Oral Tablet Extended Release 12 Hour (Tegretol-Xr)Indicat ions:Other generalized epilepsy, not intractable, without status epilepticus (HCC) TAKE 1 TABLET BY MOUTH TWICE DAILY 60 Tablet 06/02/2024 Active documented as of this encounter (statuses as of 06/19/2024) Active Problems Problem Noted Date Diagnosed Date Tricuspid regurgitation 06/16/2024 Major depressive disorder, single episode, moder ate [...] as of this encounter (statuses as of 06/19/2024) Resolved Problems Problem Noted Date Diagnosed Date Resolved Date Epilepsy 04/07/2019 10/29/2022 Senile osteoporosis 04/07/2019 10/29/19 23 documented as of this encounter (statuses as of 06/19/2024) Immunizations Name Administration Dates Next Due COVID-19 [...] 08/14/2022,07/24/2021 Seasonal Influenza, Trivalen t, Adjuvanted, 65+ YRS, PF, (Fluad) 07/17/2019 TDAP (age 10 and older)(Boostrix) 07/01/2019 [...] encounter Miscellaneous Notes * Telephone Encounter - Elvia Rodriguez MD - 06/19/2024 9:38 AM EDT Pt seen in office. * Telephone Encounter - Cheikh Beyer RN - 06/10/2024 10:57 AM EDT Patient discharged home 06/08/24 from [facility] after treatment for stroke-like symptoms. Discharge instructions include taking plavix and aspirin for 20 days and following that continue with aspirin. Dr Schuler recommends an open MRI of the head without contrast and a zio patch and a sleep study. Patienthas a follow up appointment with Dr Rodriguez on 06/16, and a neurology follow up on 06/23. Thank you documented in this encounter Plan of Treatment Upcoming Encounters Date Type Department Care Team (Late st Contact Info) Description 06/23/2024 12:30 PM EDT Office Visit Neurology [facility] [address] [facility] [place] [address] Jenny Nicole PA-C [address] [place] [address] 07/15/2024 3:20 PM EDT Office Visit Rheumatology [place] [id number] [facility] [place] [address] Lopez Loyola MD [address] [place] [id number] 07/28/2024 10:00 AM EDT Office Visit General Internal Medicine [facility] [address] [facility] [place] [address] Elvia Rodriguez MD [address] [facility] [place] [id number] Scheduled Procedures Name Priority Associated Diagnoses Date/Ti me COLONOSCOPY FLEXIBLE PROXIMA L DIAGNOSTIC Recall Special screening for malignant neoplasms, colon Health Maintenance Due Date Last Done Comments Adult Wellness Visit 2013 *BISPHONATE OR OTHER ACCEPTABLE MEDICATION NEEDED FOR OSTEOPOROSIS (REFER TO SMARTSET #1146) 11/21/2023 COVID-19 Vaccine ( season) 2023 07/27/2023, 09/18/2021, 12/18/2020, Additional history exists Influenza Vaccine (FLU shot) (#1) 2024 07/27/2023, 08/14/2022, 07/24/2021, Additional history exists DXA Scan 11/26/2024 11/26/2022, 0203/2023, 11/22/2020, Additional history exists Zoster Vaccines (1 of 2) 05/21/2025 Pos tponed from 1997 (Patient Declined After Education) Depression Monitoring 06/16/2025 06/16/2024 DTap/Tdap Vaccines (2 - Td or Tdap) 07/01/2029 07/01/2019 Colonoscopy Discontinued 12/07/2011 Colorectal Cancer Screening Discontinued VITAMIN D LEVEL ONCE IN A LIFETIME-USE SMARTSET# 15198 Completed 05/21/2019 Pneumococcal Vaccine: 65+ Years Completed [...] this encounter Medical Devices Implanted Type Area Sales And Production Manager Device Identifier Shelf Expiration Date Model / Serial / Lot Iol Implanted:Qty: 1 on 06/30/2020 by Shaheen De Souza MD at [facility] Left: Eye 12/18/2024 [id number] / [id number] / Lens Intraoc 18.0 - [id number] - [id number] Implanted:Qty: 1 on 07/14/2020 by Shaheen De Souza MD at [facility] Right: Eye [employer] 02/17/2025 [id number] / [id number] / documented as of this encounter Advance Directives * Full Code [...] the patient have Health Care Power of Dryer And Washer Mechanic? Yes, in chart and reviewed as current [...] Power of Attor lesly? No Care Teams Ict Development Manager Relationship Specialty Start Date End Date Elvia Rodriguez MD [address] [facility] [place] [address] PCP - General Internal Medicine 06/11/19 documented as of this encounter
--- OUTSIDE RECORDS SUMMARY | 2024-06-20 19:19 | External Medical Summary | Summary of Care ---
Author Name Unknown Organization [facility] Address [address] [place] [address] Phone [phone] Care Team Providers Care Finger Waver Name Role Phone Elvia Rodriguez MD Primary Care Provider + Reason for Referral * Evaluate & Treat - Unlimited Visits (Within 30 days (routine)) - Authorized Specialty Diagnoses / Procedures Referred By Contac t Referred To Contact Rheumatology Diagnoses Age-related osteoporosis without current pathological fracture Elvia Rodriguez MD [address] [place] [address] Referral ID Status Reason Start Date Expiration Date Visits Requested Visits Authorized [id number] Authorized Specialty Services Required 06/16/[phone] Question Answer Referral Priority Within 30 days (routine) Where should this appointment be scheduled? [facility] Reason for referral: Osteoporosis Comments Pt was on reclast. Not had it or seen provider more than a year. Thanks. Reason for Visit * Reason Onset Date Comments Hospital Follow-Up Hospital Follow-Up 06/16/2024 Encounter Details Date Type Department Care Team (Late st Contact Info) Description 06/16/2024 11:00 AM EDT Office Visit General Internal Medicine [facility] [address] [place] [address] Elvia Rodriguez MD [address] [place] [address] History of TIA (transient ischemic attack)*; Nonrheumatic tricuspid valve regurgitation; Age-related osteoporosis without current pathological fracture; Multinodular goiter (nontoxic); NAVIN (generalized anxiety disorder); Major depressive disorder, single episode, moderate (HCC); Hospital discharge follow-up; Syncope and collapse Allergies Active Allergy Reactions Criticality Noted Date Comments Bee Venom Edema Other 02/18/2017 "itching, red, swelling, but only at the place where I got stung" Clam Shell Diarrhea 04/24/2022 Pollen 08/14/2022 Unsure exactly what, but has some sort of seasonal allergy documented as of this encounter (statuses as of 06/16/2024) Medications Medication Sig Dispensed Refills Start Date [...] MOUTH TWICE DAILY 60 Tablet 06/02/2024 Active Clopidogrel Bisulfate 75 MG Oral Tablet (pLAVix) Take 1 Tablet by mouth in the morning. 06/08/2024 Active methIMAzole 5 MG Oral Tablet (Tapazole)Indicat ions:History of TIA (transient ischemic attack) Take 1 Tablet by mouth in the morning. In the morning.. 90 Tablet 06/16/2024 Active methIMAzole 5 MG Oral Tablet (Tapazole) TAKE 1 TABLET BY MOUTH EVERY MORNING 90 Tablet 06/11/2024 06/16/2024 Discontinued (Refill) documented as of this encounter (statuses as of 06/16/2024) Active Problems Problem Noted Date Diagnosed Date [...] as of this encounter (statuses as of 06/16/2024) Resolved Problems Problem Noted Date Diagnosed Date Resolved Date Epilepsy 04/07/2019 10/29/2022 Senile osteoporosis 04/07/2019 10/29/19 23 documented as of this encounter (statuses as of 06/16/2024) Immunizations Name Administration Dates Next Due COVID-19 [...] on file documented as of this encounter Last Filed Vital Signs Vital Sign Reading Time Taken Comments Blood Pressure 110/70 06/16/2024 11:07 AM EDT Pulse 99 06/16/2024 11:07 AM EDT Temperature 36.1 C (97 F) 06/16/2024 11:07 AM EDT Respiratory Rate 16 06/16/2024 11:07 AM EDT Oxygen Saturation 99% 06/16/2024 11:07 AM EDT Inhaled Oxygen Concentration - - Weight 67.1 kg (148 lb) 06/16/2024 11:07 AM EDT Height - - Body Mass Index 27.07 11/04/2023 10:07 AM EST documented in this encounter Functional Status Functional Status Response [...] No 10/28/2018 documented as of this encounter Progress Notes * Ying Bradshaw MED ASSIST - 06/16/2024 12:17 PM EDT 06/16/24 12:18 PM Date to Remove: 07/01/24 Time to Remove: upon waking Serial Number: [id number] Ordering Provider: ANJEL Cisse Zio patch applied in clinic, as per provider orders. * Elvia Rodriguez MD - 06/16/2024 11:58 AM EDT HPI: Malinda Kenney is a 79 year old female with a history of multinodular goiter, osteoarthritis of the both knees, osteoporosis, neuropathy, epilepsy, GERD, generalized anxiety disorder, depression, history of TIA in the past, lives alone at home and was taken to Emergency Room with stroke-like symptoms who presents with: Chief Complaint Patient presents with Hospital Follow-Up Pt is here for the hospital follow up. Chart reviewed from the hospital including admission note, Hand P, consult notes, labs, EKG, imaging and discharge note including discharge meds. Patient states she is feeling better since went back home. Pt was admitted to the hospital on 06/06/24 and was discharged on 06/08/24 . Admission Diagnosis : TIA, Pt has been followed up by outsole caser and specialists. As per review of the chart and discussion with the patient and daughter Angeles around 8:00 p.m. patient was ready to go to bed when she felt very we can having slurred speech at home. Family decided to bring her to the hospital at that time. As per the daughter patient does get off and on slurredspeech but that day it was more profound. Symptoms lasted for around 1/2 hour. Patient would only sp eaks small sentences and was very slurred at that time and she was in ER. She denied any dizziness,blurred vision. Patient had labs, EKG, CT head, CTA head and neck. Patient had chest x-ray, 2D echo and it showed EF of 60 to 65%, RV normal, right ventricular systolic function was normal and had mild tricuspid regurgitation. Patient's hemoglobin A1c was 5.3 and lipid panel, TSH was normal while in the hospital. Patient wasadmitted in telemetry and neuro checks were done. Speech evaluation was done. Patient was consulted by neurologist and she was advised to take aspirin with Plavix for 21 days and statin for cholesterol management. As with the patient she has tried Lipitor in the past and had more muscle symptoms and does not prefer taking any statin at this time. We discussed about taking low dose of Crestor instead and she will think and let us know. Patient was recommended to continue all the current medications in addition to aspirin and Plavix for 2 weeks and also follow up with neurologist. She also had a PT evaluation and was advised to continue PT at home if needed. Patient was also advised to get Zio patch done an outpatient sleep study. The last eval was 2 yearsback. We also talked about getting MRI of the brain but as patient is claustrophobic she prefers open MRI. As patient has upcoming appointment with a neurologist we decided to wait till next week and do further discussion with Neurology. Reviewed all the chart and workup with the patient. Reviewed all the concerns turned notes. As per daughter Angeles who is RN patient is overall feeling okay clinically and she has doubts about TIA at this time. Patient does not want to do PT at this time and managing well at home. Denies any chestpain/sob/palpitation/swealling in the legs. Denies any cough/sob/wheezing/chestpain. Patient Active Problem List Diagnosis Leukocytosis Osteoarthritis of both knees Neuropathy Multinodular goiter (nontoxic) NAVIN (generalized anxiety disorder) Age-related osteoporosis without current pathological fracture Psoriasis Major depressive disorder, single episode, moderate (HCC) Other generalized epilepsy and epileptic syndromes, not intractable, without status epilepticus (HCC) History of TIA (transient ischemic attack) Current Outpatient Medications Medication Sig Dispense Refill Multiple Vitamins-Minerals (MULTIVITAMIN WOMEN 50+) TABS Take 1 Tab by mouth daily. vitamin b-complex/vitamin C (THERAPEUTIC B COMPLEX W/C) TABS Take 1 Tablet by mouth in the morning. Turmeric 500 MG Capsule Take 1 Capsule by mouth in the morning. Misc Natural Products (OSTEO BI-FLEX ADV JOINT SHIELD) Tablet Take 1 Tab by mouth daily. Calcium Carbonate-Vitamin D 600-200 MG-UNIT Oral Tablet Take 1 Tablet by mouth in the morning. lactobacillus rhamnosus, GG, (CULTURELLE) Capsule Take 1 Cap by mouth 2 times a day. 30 Cap 0 Aspirin 81 MG Oral Tablet Chewable Take 1 Tablet by mouth in the morning. Latanoprost 0.005 % Ophthalmic Emulsion Instill 1 Drop into the right eye at bedtime. Triamcinolone Acetonide 0.1 % External Lotion (Aristocort) apply topically to affected areas on scalp daily. after 2 weeks use several times a week as needed 60 mL 0 Escitalopram Oxalate 10 MG Oral Tablet (Lexapro) TAKE 1 TABLET BY MOUTH EVERY MORNING 90 Tablet 1 carBAMazepine ER 400 MG Oral Tablet Extended Release 12 Hour (Tegretol-Xr) TAKE 1 TABLET BY MOUTH TWICE DAILY 60 Tablet 0 Clopidogrel Bisulfate 75 MG Oral Tablet (pLAVix) Take 1 Tablet by mouth in the morning. methIMAzole 5 MG Oral Tablet (Tapazole) Take 1 Tablet by mouth in the morning. In the morning.. 90 Tablet 0 Ascorbic Acid (VITAMIN C) 100 MG Tablet Take 1 Tablet by mouth in the morning. (Patient not taking:Reported on 09/17/2023) zoster vac recomb adjuvanted (SHINGRIX) 50 MCG/0.5ML injection Inject 0.5 mL into a large muscle now and repeat dose in 60 to 180 days 1 Each 1 No current facility-administered medications for this visit. The patient's medication list was reviewed and updated as needed. Review of patient's allergies indicates: Allergen Reactions Bee Venom Edema Other "itching, red, swelling, but only at the place where I got stung" Clam Shell Diarrhea Pollen Unsure exactly what, but has some sort of seasonal allergy Past Medical History: Diagnosis Date C. difficile colitis Diverticulitis Generalized convulsive epilepsy without intractable epilepsy (HCC) Glaucoma Osteoporosis T12 compression fracture (HCC) Social History Socioeconomic History Marital status: Tobacco Use Smoking status: Never Smokeless tobacco: Never Vaping Use Vaping status: Never Used Substance and Sexual Activity Alcohol use: Yes Comment: "once in a blue roblero" Drug use: No Sexual activity: Not Currently Social Determinants of Health Food Insecurity: No Food Insecurity (09/13/2020) Hunger Vital Sign Worried About Running Out of Food in the Last Year: Never true Ran Out of Food in the Last Year: Never true Social Connections Family History Problem Relation Name Age of Onset Coronary Artery disease Mother Uterine cancer Mother Emphysema Father Breast Cancer Daughter 48 diagnosed X 2 All system negative except as per hpi. OBJECTIVE: BP 110/70 (BP Site: Left Arm, BP Position: Sitting, BP Cuff Size: Regular) | Pulse 99 | Temp 36.1 C (97 F) (Tympanic) | Resp 16 | Wt 67.1 kg (148 lb) | SpO2 99% | BMI 27.07 kg/m | BSA 1.71 m PHYSICAL EXAM: HEENT: PERRLA, EOMI, anicteric sclera, b/l tympanic membrane is pearly white, no erythema, no pharyngeal erythema, no lymphadenopathy, neck supple CVS: RRR, no murmurs, rubs or gallops, s1 s 2normal. RESP: clear to auscultation, no wheezing or crackles ABD: soft, NT/ND EXT: no edema, cyanosis, peripheral pulses palpable bilaterally No large joint swelling, no redness, range of motion normal. Skin normal. Gait slow and with walker. Mood stable No focal weakness ASSESSMENT AND PLAN: History of TIA (transient ischemic attack) (Primary) Keep close follow up with Neurology. Continue aspirin and continue Plavix for 3 more weeks. Keep close follow up appointment with the Neurology and discuss further. Tricuspid regurgitation - EXTERNAL EKG 8 TO 15 DAYS Age-related osteoporosis without current pathological fracture - RHEUMATOLOGY REFERRAL OP Multinodular goiter (nontoxic) methIMAzole 5 MG Oral Tablet (Tapazole); Take 1 Tablet by mouth in the morning. In the morning.. NAVIN (generalized anxiety disorder) Stable. On lexapro 10 mg daily. Major depressive disorder, single episode, moderate (HCC) On Lexapro 10 mg daily. Hospital discharge follow-up Syncope and collapse - EXTERNAL EKG 8 TO 15 DAYS On Carbamazipine. Elvia Rodriguez MD documented in this encounter Nursing Notes * Ying Bradshaw [employer] - 06/16/2024 11:04 AM EDT Hospital Follow Up: When was patient seen: 06/06/24 Which ED: [facility] What were they seen for: weakness and slurred speech What testing did they have done: cxr, ekg, lab work, ct scan , echocardiogram, and CT Angio Head and neck with contrast What did ED think was wrong (dx): possible TIA Any new medications prescribed: Plavix 75mg x 20 days How is patient feeling today: feeling a little dizzy, trouble swallowing larger pills. Patient concerns today: MRI and Zio. Needs open MRI due to claustrophobia. Daughter, Angeles, states that she had a zio not long ago. Angeles also states that she needs her infusion that is about a year over due because her valve grinder left. She also needs follow up with neurology which is scheduled 06/23/24 documented in this encounter Plan of Treatment Upcoming Encounters Date Type Department Care Team (Late st Contact Info) Description 06/23/2024 12:30 PM EDT Office Visit Neurology [facility] [address] [facility] [place] [address] Jenny Nicole PA-C [address] [facility] [place] [address] 07/15/2024 3:20 PM EDT Office Visit Rheumatology [facility] [address] [place] [address] Lopez Loyola MD [address] [place], [place] [address] 07/28/2024 10:00 AM EDT Office Visit General Internal Medicine [facility] [address] [facility] [place] [address] Elvia Rodriguez MD [address] [facility] [place] [address] Scheduled Orders Name Type Priority Associated Diagnoses Orde r Schedule EXTERNAL EKG 8 TO 15 DAYS Holter Routine Nonrheumatic tricuspid valve regurgitation Syncope and collapse Ordered: 06/16/2024 Scheduled Procedures Name Priority Associated Diagnoses Date/Ti me COLONOSCOPY FLEXIBLE PROXIMA L DIAGNOSTIC Recall Special screening for malignant neoplasms, colon Scheduled Referrals Name Type Priority Associated Diagnoses Orde r Schedule RHEUMATOLOGY REFERRAL OP Referral Within 30 days (routine) Age-related osteoporosis without current pathological fracture Ordered: 06/16/2024 Health Maintenance Due Date Last Done Comments Adult Wellness Visit 2013 *BISPHONATE OR OTHER ACCEPTABLE MEDICATION NEEDED FOR OSTEOPOROSIS (REFER TO SMARTSET #1146) 11/21/2023 COVID-19 Vaccine ( season) 2024 07/27/2023, 09/18/2021, 12/18/2020, Additional history exists Postponed from 11/27/2023 (Patient Declined After Education) Influenza Vaccine (FLU shot) (#1) 2024 07/27/2023, 08/14/2022, 07/24/2021, Additional history exists DXA Scan 11/26/2024 11/26/2022, 03/2023, 11/22/2020, Additional history exists Zoster Vaccines (1 of 2) 05/21/2025 Pos tponed from 1997 (Patient Declined After Education) Depression Monitoring 06/16/2025 06/16/2024 DTap/Tdap Vaccines (2 - Td or Tdap) 07/01/2029 07/01/2019 Colonoscopy Discontinued 12/07/2011 Colorectal Cancer Screening Discontinued VITAMIN D LEVEL ONCE IN A LIFETIME-USE SMARTSET# [id number] Completed 05/21/2019 Pneumococcal Vaccine: 65+ Years Completed [...] this encounter Medical Devices Implanted Type Area Home Health Rn Device Identifier Shelf Expiration Date Model / Serial / Lot Iol Implanted:Qty: 1 on 06/30/2020 by Shaheen De Souza MD at OR [facility] Left: Eye 12/18/2024 [id number] / [id number] / Lens Intraoc 18.0 - [id number] - [id number] Implanted:Qty: 1 on 07/14/2020 by Shaheen De Souza MD at OR [facility] Right: Eye [employer]CH [employer] LOMB 02/17/2025 [id number] / [id number] / documented as of this encounter Visit Diagnoses Diagnosis History of TIA (transient ischemic attack)- Primary Transient ischemic attack (TIA), and cerebral infarction without residual deficits Nonrheumatic tricuspid valve regurgitation Tricuspid valve disorders, specified as nonrheumatic Age-related osteoporosis without current pathological fracture Senile osteoporosis Multinodular goiter (nontoxic) Nontoxic multinodular goiter NVAIN (generalized anxiety disorder) Generalized anxiety disorder Major depressive disorder, single episode, moderate (HCC) Major depressive disorder, single episode, moderate Hospital discharge follow-up Other follow-up examination Syncope and collapse documented in this encounter Advance Directives * [...] the patient have Health Care Power of Tar Pot Man? Yes, in chart and reviewed as current [...] Power of Attor lesly? No Care Teams Finger Waver Relationship Specialty Start Date End Date Elvia Rodriguez MD [address] [place] [address] PCP - General Internal Medicine 06/11/19 documented as of this encounter
--- OUTSIDE RECORDS SUMMARY | 2024-06-20 19:19 | External Medical Summary | Summary of Care ---
Author Name Unknown Organization [facility] Address [address] [place] [address] Phone [phone] Care Team Providers Care Epic Manager Name Role Phone Elvia Rodriguez MD Primary Care Provider + Encounter Details Date Type Department Care Team (Late st Contact Info) Description 06/15/2024 Orders Only PATIENT PORTAL DO NOT DELETE THIS DEPT USED BY [place] J[place]IER [id number] Allergies Active Allergy Reactions Criticality Noted Date Comments Bee Venom Edema Other 02/18/2017 "itching, red, swelling, but only at the place where I got stung" Clam Shell Diarrhea 04/24/2022 Pollen 08/14/2022 Unsure exactly what, but has some sort of seasonal allergy documented as of this encounter (statuses as of 06/15/2024) Medications Medication Sig Dispensed Refills Start Date [...] MOUTH TWICE DAILY 60 Tablet 06/02/2024 Active methIMAzole 5 MG Oral Tablet (Tapazole) TAKE 1 TABLET BY MOUTH EVERY MORNING 90 Tablet 06/11/2024 Active documented as of this encounter (statuses as of 06/15/2024) Active Problems Problem Noted Date Diagnosed Date [...] as of this encounter (statuses as of 06/15/2024) Resolved Problems Problem Noted Date Diagnosed Date Resolved Date Epilepsy 04/07/2019 10/29/2022 Senile osteoporosis 04/07/2019 10/29/19 23 documented as of this encounter (statuses as of 06/15/2024) Immunizations Name Administration Dates Next Due COVID-19 [...] No 10/28/2018 documented as of this encounter Plan of Treatment Upcoming Encounters Date Type Department Care Team (Late st Contact Info) Description 06/16/2024 11:00 AM EDT Office Visit General Internal Medicine [facility] [place] [address] [place] [address] Elvia Rodriguez MD [address] [place] [address] [address] 06/23/2024 12:30 PM EDT Office Visit Neurology [facility] [address] [place] [address] Jenny Nicole [facility]-C [facility] [place] [address] 07/28/2024 10:00 AM EDT Office Visit General Internal Medicine [facility] [address] [place] [address] [address] Elvia Rodriguez MD [address] [place] [address] Scheduled Procedures Name Priority Associated Diagnoses Date/Ti [...] D LEVEL ONCE IN A LIFETIME-USE SMARTSET# 48639 Completed 05/21/2019 Pneumococcal Vaccine: 65+ Years Completed [...] this encounter Medical Devices Implanted Type Area Button Riveter Device Identifier Shelf Expiration Date Model / Serial / Lot Iol Implanted:Qty: 1 on 06/30/2020 by Shaheen De Souza MD at OR [facility] Left: Eye 12/18/2024 [id number] / [id number] / Lens Intraoc 18.0 - [id number] - [id number] Implanted:Qty: 1 on 07/14/2020 by Shaheen De Souza MD at OR [facility] Right: Eye [employer]USCH [employer] LOMB 02/17/2025 [id number] / [id number] / documented as of this encounter Advance [...] the patient have Health Care Power of Rental Manager? Yes, in chart and reviewed as current [...] Power of Attor lesly? No Care Teams Epic Manager Relationship Specialty Start Date End Date Elvia Rodriguez MD [address] [facility] [place] [address] PCP - General Internal Medicine 06/11/19 documented as of this encounter
--- OUTSIDE RECORDS SUMMARY | 2024-06-20 19:19 | External Medical Summary | Summary of Care ---
Author Name Unknown Organization [facility] Address [address] [place] [address] Phone [phone] Care Team Providers Care Specialty Finishing Utility Person Name Role Phone Krystle Rodriguez MD Primary Care Provider + Reason for Visit * Reason Comments eRx-Medication Refill Encounter Details Date Type Department Care Team (Late st Contact Info) Description 06/10/2024 Refill General Internal Medicine [facility] [address] [facility] [place] [address] Krystle Rodriguez MD 200 [place] [address] Encounter for long-term (current) use of other medications* Allergies Active Allergy Reactions Criticality Noted Date Comments Bee Venom Edema Other 02/18/2017 "itching, red, swelling, but only at the place where I got stung" Clam Shell Diarrhea 04/24/2022 Pollen 08/14/2022 Unsure exactly what, but has some sort of seasonal allergy documented as of this encounter (statuses as of 06/11/2024) Medications Medication Sig Dispensed Refills Start Date [...] MOUTH EVERY MORNING 90 Tablet 06/11/2024 Active methIMAzole 5 MG Oral Tablet (Tapazole) TAKE 1 TABLET BY MOUTH EVERY MORNING 90 Tablet 1 12/10/2023 4 Discontinued documented as of this encounter (statuses as of 06/11/2024) Active Problems Problem Noted Date Diagnosed Date [...] as of this encounter (statuses as of 06/11/2024) Resolved Problems Problem Noted Date Diagnosed Date Resolved Date Epilepsy 04/07/2019 10/29/2022 Senile osteoporosis 04/07/2019 10/29/19 23 documented as of this encounter (statuses as of 06/11/2024) Immunizations Name Administration Dates Next Due COVID-19 [...] encounter Miscellaneous Notes * Telephone Encounter - Jennifer Allen RPh - 06/11/2024 3:44 PM EDTSigned Prescriptions: Disp Refills methIMAzole 5 MG Oral Tablet (Tapazole) 90 Tab*0 Sig: TAKE 1 TABLET BY MOUTH EVERY MORNINGAuthorizing Provider: KRYSTLE RODRIGUEZ User: JENNIFER ALLEN * Telephone Encounter - Jennifer Allen RPh - 06/11/2024 3:42 PM EDT Pt needs AST and ALT on file within past year. CMP ordered. Pt may obtain with next routine labs due in August. 1 refill approved as pt will be due for lab work within 3 months. Thank you, Jennifer Allen, PharmD Clinical Pharmacist [facility] [phone] 06/11/2024, 3:43 PM documented in this encounter Plan of Treatment Upcoming Encounters Date Type Department Care Team (Late st Contact Info) Description 06/16/2024 11:00 AM EDT Office Visit General Internal Medicine [address] [place] [address] Krystle Rodriguez MD [address] [place] [address] [place] [address] 06/23/2024 12:30 PM EDT Office Visit Neurology [facility] [address] [facility] [place] [address] Jenny Nicole PA-C [address] [facility] [place] [address] 07/28/2024 10:00 AM EDT Office Visit General Internal Medicine [address] [place] [address] Krystle Rodriguez MD [address] [facility] [place] [address] Scheduled Orders Name Type Priority Associated Diagnoses Orde r Schedule COMPREHENSIVE METABOLIC PANEL Lab Routine Encounter for long-term (current) use of other medications Expected: 06/18/2024 (Approximate), Expires: 06/11/2025 Scheduled Procedures Name Priority Associated Diagnoses Date/Ti [...] D LEVEL ONCE IN A LIFETIME-USE SMARTSET# 28521 Completed 05/21/2019 Pneumococcal Vaccine: 65+ Years Completed [...] this encounter Medical Devices Implanted Type Area Livestock [employer] Inspector Device Identifier Shelf Expiration Date Model / Serial / Lot Iol Implanted:Qty: 1 on 06/30/2020 by Shaheen De Souza MD at OR [facility] Left: Eye 12/18/2024 [id number] / [id number] / Lens Intraoc 18.0 - [id number] - [id number] Implanted:Qty: 1 on 07/14/2020 by Shaheen De Souza MD at OR [facility] Right: Eye BAUSCH [employer] LOMB 02/17/2025 [id number] / [id number] / documented as of this encounter Visit Diagnoses Diagnosis Encounter for long-term (current) use of other medications- Primary documented in this encounter Advance Directives * [...] the patient have Health Care Power of Managed Care Provider? Yes, in chart and reviewed as current [...] Power of Attor lesly? No Care Teams Specialty Finishing Utility Person Relationship Specialty Start Date End Date Krystle Rodriguez MD [address] [place] [address] PCP - General Internal Medicine 06/11/19 documented as of this encounter
--- NOTE | 2024-06-20 19:22 | Emergency Department Note ---
Impression & Plan TIA (transient ischemic attack), Stroke-like symptoms, Acute hyperglycemia ED Provider Note NAME: RICKY ANDREA AGE: 79 SEX: F : 1945 ARRIVES VIA: Ambulance INFORMANT: Patient ED PROVIDER(S): Efren Smith DO CHIEF COMPLAINT: Strokelike symptoms HPI: Patient is a 79-year-old female with a past medical history of multinodal goiter, osteoarthritis of both knees, osteoporosis, neuropathy, epilepsy, GERD generalized anxiety,, depression, history of TIA who lives alone and notes around 1817 she started having slurred speech. She denies any headache or loss of vision. No chest pain or shortness of breath. No dysuria, urgency, or frequency. No focal weakness in the arms or legs. No other exacerbating or remitting factors. ADDITIONAL HISTORY OBTAINED: Per HPI Chronic Medical/Social Conditions Affecting Care: Per HPI PAST MEDICAL HISTORY:See Below PAST SURGICAL HISTORY:See Below FAMILY HISTORY:See Below SOCIAL HISTORY:See Below HOME MEDICATIONS:See Below ALLERGIES:See Below VITALS:See Below PHYSICAL EXAMINATION: GENERAL: Sitting up in bed, alert, well appearing, well nourished, no distress, non-toxic EYE EXAM: normal conjunctiva. PERRL and EOM's grossly intact. OROPHARYNX: no exudate, no erythema, lips, buccal mucosa, and tongue normal and mucous membranes are moist NECK: supple, no nuchal rigidity, no adenopathy, non-tender LUNGS: Clear to auscultation. Normal chest wall mechanics HEART: no murmurs, S1 normal and S2 normal ABDOMEN: abdomen soft, non-tender, normo-active bowel sounds, no masses, no rebound or guarding. UPPER EXTREMITIES: upper extremities are grossly normal. LOWER EXTREMITIES: No pitting edema. NEURO EXAM: Normal sensorium, right-sided facial droop slurred speech speech, no weakness of arms, no weakness of legs. No drift. Finger to nose intact. Gross sensation intact. MEDICAL DECISION MAKING: Patient is a 79-year-old female who presents ER for the below stated complaint. IV was established blood work was obtained. Labs show no significant leukocytosis or anemia. INR unremarkable. BMP was unremarkable with the exception of a slightly elevated glucose. External medical records reviewed from 820 11/2023 discharge following strokelike symptoms unable to perform MRI as an inpatient consequently given a Zio patch. LFTs bilirubin and mag were unremarkable. Troponin was negative. Homocysteine ordered per the request of neurology. They also requested a platelet function. Chest x-ray was unremarkable. Patient was seen and evaluated by neurology from [facility] Dr. Concepcion. Favors that this likely a stroke and recommend admission for additional workup. Consults/Care Managements Discussions: Per MDM Triage Nursing notes reviewed. Limited review of prior medical records performed Vital Signs: reviewed and remarkable for no significant abnormalities Differential diagnosis: Differential Diagnosis includes but is not limited to ischemic Stroke, hemorrhagic stroke, bells palsy, mass, neoplasm, migraine headache, seizure, subarachnoid hemorrhage, TIA, and transient global amnesia. ER treatment provided: See below Diagnostics interpreted by me include EKG and cardiac monitoring as listed below: -Cardiac Monitoring: An order was placed for continuous cardiac monitoring. The monitor shows a rate of 101 with sinus rhythm. -ECG: Sinus rhythm rate 89 Normal axis Right bundle branch block QTc 462 -Laboratory studies:Interpreted by me as stated above in MDM and shown below. Imaging studies: Xrays: As interpreted by me: Portable AP upright 1 view of the chest shows no focal infiltrate CTs show: CT angios of the head and neck as described above Procedures:none Critical Care: None Past Med/Surg History Problem List (Updated 06/21/24 @ 00:51 by Efren Smith DO) Acute hyperglycemia (Acute) Stroke-like symptoms (Acute) Status post left knee replacement (~06/2023) Encounter for pre-operative examination Hyperthyroidism Taking Methimazole TIA (transient ischemic attack) (Acute) Osteoarthritis of right knee Osteoporosis Medical History Hx of compression fracture of spine 2017, "mid back" > "healed" Anxiety Osteoarthritis TIA (transient ischemic attack) 04/2022, possible TIA (testing "inconclusive") Multinodular goiter Seizure disorder Hx epilepsy, no seizure x several years Arthritis Hiatal hernia Diverticular disease Hx of basal cell carcinoma s/p excision Glaucoma B/L Surgical History History of tonsillectomy History of tooth extraction Hx of cataract surgery R/L History of colonoscopy Hx laparoscopic cholecystectomy Laparoscopic Cholecystectomy (08/06/19): Grade 1 view, MAC#3, ETT 7.0, atraumatic Hx of basal cell carcinoma excision History of elbow surgery Right Family History Daughter Breast cancer Social History Smoking Status: Never smoker Second Hand Exposure: No; Do You Dip or Chew Tobacco: No; Hx Alcohol Use: No Hx Substance Use: No Preferred Language: Polish Communication Ability: Effective 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 Beliefs That Will Affect Care: None marital status: Current Living Situation: Alone Current Living Situation Comment: Lives alone in apartment in shelter community in [place] current occupational status: retired How many Children do You have: 1 Other Information That Helps Us Care for You: No Feels Safe at Home: Yes Safety Concerns: Feels Safe At This Time Assistive Devices: Glasses and Walker Allergies Allergies Allergy/AdvReac Type Severity Reaction Status Date / Time clams Allergy Severe Dyspepsia, Verified 06/20/24 20:44 abdominal pain Home Meds Home Medications Medication Instructions Recorded Confirmed turmeric 400 mg capsule 400 mg PO QAM 07/24/19 06/20/24 calcium carbonate 500 mg-vitamin 1 tab PO BID 04/24/22 06/20/24 D3 5 mcg (200 unit) tablet (Calcium 500 + D) carbamazepine 400 mg 400 mg PO Q12H 04/24/22 06/20/24 tablet,extended release,12 hr glucosamine-chondroitin 250 mg-200 1 tab PO BID 04/24/22 06/20/24 mg tablet (Osteo Bi-Flex) multivitamin with minerals 1 tab PO QDL 04/24/22 06/20/24 olopatadine 0.1 % eye drops 1 drp OPB DAILY PRN allergies 04/24/22 06/20/24 vitamin B complex 1 tab PO QDL 04/24/22 06/20/24 L.acidop,casei,lactis,rham-B.lact,marcelle 1 cap PO QPM 05/17/23 06/20/24 625 mg (10 billion cell) capsule (Advanced Probiotic) escitalopram oxalate 10 mg tablet 10 mg PO HS 05/17/23 06/20/24 methimazole 5 mg tablet 5 mg PO QAM 05/17/23 06/20/24 aspirin 81 mg tablet,delayed 81 mg PO QAM 09/04/23 06/20/24 release latanoprost 0.005 % eye drops 1 drp OPR HS 09/04/23 06/20/24 Previous Rx's Medication Instructions Recorded clopidogrel 75 mg tablet 75 mg PO QAM #20 tabs 06/08/24 Results & Data (ED) Vital Signs Vital Signs - 24 hr 06/20/24 19:14 06/20/24 19:32 06/20/24 19:34 Temperature 36.4 C L Temperature Source Oral Pulse Rate 88 91 H Pulse Rate from SpO2 Sensor Respiratory Rate 16 Blood Pressure 140/82 140/82 Blood Pressure Mean 101 93 Pulse Oximetry 96 Oxygen Delivery Method Room Air Sepsis Recent Fever Within 48 Hours No Sepsis New/Unexplained Change in Mental Status No Sepsis Action Taken by Nursing No Action Required 06/20/24 19:36 06/20/24 20:04 06/20/24 20:09 Temperature Temperature Source Pulse Rate 90 93 H Pulse Rate from SpO2 Sensor 90 92 H Respiratory Rate 16 16 Blood Pressure 136/86 Blood Pressure Mean 102 Pulse Oximetry 97 98 Oxygen Delivery Method Sepsis Recent Fever Within 48 Hours Sepsis New/Unexplained Change in Mental Status Sepsis Action Taken by Nursing 06/20/24 20:30 06/20/24 20:39 06/20/24 20:39 Temperature Temperature Source Pulse Rate 92 H Pulse Rate from SpO2 Sensor 94 H Respiratory Rate 16 Blood Pressure 136/95 136/95 Blood Pressure Mean 98 98 Pulse Oximetry 99 Oxygen Delivery Method Sepsis Recent Fever Within 48 Hours Sepsis New/Unexplained Change in Mental Status Sepsis Action Taken by Nursing 06/20/24 20:39 06/20/24 21:00 06/20/24 21:00 Temperature Temperature Source Pulse Rate 103 H 93 H Pulse Rate from SpO2 Sensor 106 H 94 H Respiratory Rate 20 20 Blood Pressure 138/87 Blood Pressure Mean 103 Pulse Oximetry 91 96 Oxygen Delivery Method Sepsis Recent Fever Within 48 Hours Sepsis New/Unexplained Change in Mental Status Sepsis Action Taken by Nursing 06/20/24 21:36 Temperature Temperature Source Pulse Rate 95 H Pulse Rate from SpO2 Sensor 95 H Respiratory Rate 21 Blood Pressure 140/82 Blood Pressure Mean 101 Pulse Oximetry 96 Oxygen Delivery Method Sepsis Recent Fever Within 48 Hours Sepsis New/Unexplained Change in Mental Status Sepsis Action Taken by Nursing Laboratory Data 06/20/24 19:28 06/20/24 19:28 Lab Results 08/31/24 08/31/24 08/31/24 Range/Units 19:28 19:37 21:00 WBC 7.79 (4.8-10.8) K/ul RBC 4.27 (4.20-5.40) M/uL Hgb 14.0 (12.0-16.0) g/dl Hct 39.8 (37.0-47.0) % MCV 93.2 (80.0-100.0) fL MCH 32.8 (25.0-34.0) pg MCHC 35.2 (32.0-36.0) g/dL RDW Std Deviation 42.8 (36.4-46.3) fL RDW Coeff of Bhavesh 12.4 (11.5-14.5) % Plt Count 248 (130-400) K/uL MPV 9.3 L (9.4-12.4) fL Immature Gran % (Auto) 0.3 % Neut % (Auto) 45.8 % Lymph % (Auto) 39.8 % [place] % (Auto) 9.9 % Eos % (Auto) 3.2 % Baso % (Auto) 1.0 % Neut # (Auto) 3.57 (1.40-6.50) K/uL Lymph # (Auto) 3.10 (1.20-3.40) K/uL [place] # (Auto) 0.77 H (0.11-0.59) K/uL Eos # (Auto) 0.25 (0.00-0.50) K/uL Baso # (Auto) 0.08 (0.00-0.20) K/uL Immature Gran # (Auto) 0.02 (0.01-0.20) K/uL PT 10.5 (9.0-12.0) Seconds INR 1.0 (0.9-1.1) APTT 24 (21-31) Seconds PTT Ratio 0.9 Plt Func Collagen/Epi 125 (80-184) Seconds Sodium 139 (136-145) mmol/L Potassium 3.8 (3.5-5.1) mmol/L Chloride 107 (98-107) mmol/L Carbon Dioxide 25 (21-32) mmol/L Anion Gap 7 (3-11) BUN 22 (6-23) mg/dl Creatinine 0.61 (0.6-1.2) mg/dl Est Cr Clr Drug Dosing 70.4 ml/min Est GFR ( Amer) 101.3 ml/min Est GFR (Non-Af Amer) 87.4 ml/min BUN/Creatinine Ratio 36.1 H (10-20) Glucose 112 H (70-99(Fasting)) mg/dl POC Glucose 113 H (70-99) mg/dl Calcium 8.5 L (8.6-10.3) mg/dl Magnesium 2.0 (1.7-2.4) mg/dl Total Bilirubin 0.3 (0.2-1.0) mg/dl AST 17 (13-39) U/L ALT 12 (7-52) U/L Alkaline Phosphatase 116 H (34-104) U/L Troponin I High Sens 3.1 (0-14) pg/ml Total Protein 6.0 (6.0-8.3) gm/dl Albumin 3.9 (3.4-5.0) gm/dl Globulin 2.1 L (2.5-4.0) gm/dl Albumin/Globulin Ratio 1.9 (0.9-2) Administered Medications Discontinued Medications Ioversol (Optiray 320 125ml) 120 ml IV ONCE ONE Stop: 06/20/24 19:18 Last Admin: 06/20/24 19:18 Dose: 120 ml Documented By: EDK Imaging Data Radiologist's Impression: Chest X-Ray 06/20/24 19:14 XR chest 1V portable CLINICAL HISTORY: neuro deficit, acute stroke suspected COMPARISON STUDY: Chest radiograph June 06, 2024. FINDINGS: There is no pneumothorax or pleural effusion. Cardiomegaly is unchanged. A large hiatal hernia with intrathoracic stomach is again noted. Upper mediastinal widening is unchanged and due to a large thyroid goiter with associated rightward displacement of the trachea. There is no consolidation to suggest pneumonia. Pulmonary vascular congestion is unchanged. IMPRESSION: 1. No significant change in appearance of the chest. Cardiomegaly with pulmonary vascular congestion. 2. Large hiatal hernia. 3. Thyroid goiter. ACT 112: Negative or not required by law. Electronically signed by: Tato Epstein M.D. 06/20/2024 8:[address] 06/20/24 19:14 CT OF THE HEAD WITHOUT CONTRAST CLINICAL HISTORY: neuro deficit, acute stroke suspected COMPARISON STUDY: Head CT June 06, 2024. TECHNIQUE: Helical axial images of the head were obtained without IV contrast. Automated exposure control was utilized for the study. A dose lowering technique was utilized adhering to the principles of ALARA. FINDINGS: No acute intracranial hemorrhage, midline shift or mass effect is present. White matter hypodensities are unchanged and favor small vessel disease. The ventricular system is unremarkable. The basal cisterns are patent. No extra-axial collections are present. There are no findings to suggest acute dural sinus thrombosis or acute territorial infarct. No significant calvarial abnormalities are present. Visualized portions of the sinuses and mastoid air cells are clear. IMPRESSION: No acute intracranial findings. ACT 112: Negative or not required by law. Electronically signed by: Tato Epstein M.D. 06/20/2024 7:27 PM Head CTA 06/20/24 19:14 CTA ANGIOGRAPHY OF THE HEAD CLINICAL HISTORY: neuro deficit, acute stroke suspected COMPARISON STUDY: CTA of the head June 06, 2024. TECHNIQUE: Helical axial images of the head were obtained following uneventful intravenous administration of 120 cc of Optiray. Sagittal and coronal reconstructions were viewed as well as maximal intensity projections on an independent 3-D workstation. Automated exposure control was utilized for the study. A dose lowering technique was utilized adhering to the principles of ALARA. CT DOSE: 2052.18 mGy.cm FINDINGS: No acute intracranial hemorrhage, midline shift or mass effect is present. Brain volume is normal. Ventricular system is normal. Basal cisterns are patent. There is moderate plaque within the bilateral cavernous carotids. There is mild stenosis of the right cavernous carotid. No large vessel occlusion is identified. Posterior circulation is intact. There is no intracranial aneurysm. There is persistence of the left posterior cerebral artery and a large right posterior communicating artery. IMPRESSION: No large vessel occlusion. No intracranial aneurysm. ACT 112: Negative or not required by law. Electronically signed by: Tato Epstein M.D. 06/20/2024 7:44 PM Neck CTA 06/20/24 19:14 CT ANGIOGRAPHY OF THE NECK WITH CONTRAST CLINICAL HISTORY: neuro deficit, acute stroke suspected COMPARISON STUDY: CT angiography of the neck June 06, 2024. Technique: CT angiography of the carotid and vertebral arteries was obtained using Optiray and 3D reconstruction on an independent workstation. NASCET criteria was utilized. Automated exposure control was utilized for the study. A dose lowering technique was utilized adhering to the principles of ALARA. Findings: A multinodular thyroid goiter is again noted. This is similar to prior exams. There is no cervical lymphadenopathy. There are no cervical spine fractures. Visualized portions of the lung apices are unremarkable. The bilateral common carotid, cervical internal carotid and vertebral arteries are patent. No stenosis or dissection is identified. There is no aneurysm within the neck. There is mild plaque within the carotid bifurcations without stenosis. IMPRESSION: No stenosis or dissection within the bilateral common carotid, cervical internal carotid or vertebral arteries. ACT 112: Negative or not required by law. Electronically signed by: Tato Epstein M.D. 06/20/2024 7:38 PM Discharge Plan Visit Data Chief Complaint: Stroke Alert Stated Complaint: STROKE ED Provider: Efren Smith Discharge Problem: TIA (transient ischemic attack), Stroke-like symptoms, Acute hyperglycemia Patient Disposition: Admitted As Inpatient Discharge Instructions Interventions: ED Discharge Assessment Last Done: 06/20/24 23:57
--- NOTE | 2024-06-20 19:29 | CT Scan Report ---
CT OF THE HEAD WITHOUT CONTRAST CLINICAL HISTORY: neuro deficit, acute stroke suspected COMPARISON STUDY: Head CT June 06, 2024. TECHNIQUE: Helical axial images of the head were obtained without IV contrast. Automated exposure con trol was utilized for the study. A dose lowering technique was utilized adhering to the principles o f ALARA. FINDINGS: No acute intracranial hemorrhage, midline shift or mass effect is present. White matter hyp odensities are unchanged and favor small vessel disease. The ventricular system is unremarkable. The basal cisterns are patent. No extra-axial collections are present. There are no findings to suggest a cute dural sinus thrombosis or acute territorial infarct. No significant calvarial abnormalities are present. Visualized portions of the sinuses and mastoid air cells are clear. IMPRESSION: No acute intracranial findings. ACT 112: Negative or not required by law. Electronically signed by: Tato Epstein M.D. 06/20/2024 7:27 PM
--- NOTE | 2024-06-20 19:41 | CT Scan Report ---
CT ANGIOGRAPHY OF THE NECK WITH CONTRAST CLINICAL HISTORY: neuro deficit, acute stroke suspected COMPARISON STUDY: CT angiography of the neck June 06, 2024. Technique: CT angiography of the carotid and vertebral arteries was obtained using Optiray and 3D rec onstruction on an independent workstation. NASCET criteria was utilized. Automated exposure control was utilized for the study. A dose lowering technique was utilized adhering to the principles of ALA RA. Findings: A multinodular thyroid goiter is again noted. This is similar to prior exams. There is no c ervical lymphadenopathy. There are no cervical spine fractures. Visualized portions of the lung apice s are unremarkable. The bilateral common carotid, cervical internal carotid and vertebral arteries ar e patent. No stenosis or dissection is identified. There is no aneurysm within the neck. There is mil d plaque within the carotid bifurcations without stenosis. IMPRESSION: No stenosis or dissection within the bilateral common carotid, cervical internal carotid or vertebral arteries. ACT 112: Negative or not required by law. Electronically signed by: Tato Epstein M.D. 06/20/2024 7:38 PM
[2024-06-20 19:47] LABS: Basophils # (auto) 0.08 K/uL (0.00-0.20); Eosinophils # (auto) 0.25 K/uL (0.00-0.50); Eosinophils % (auto) 3.2 %; Hematocrit (blood only) 39.8 % (37.0-47.0); Immature Granulocytes # (auto) 0.02 K/uL (0.01-0.20); Immature Granulocytes % (auto) 0.3 %; Lymphocytes % (auto) 39.8 %; Mean Corpuscular Hemoglobin 32.8 pg (25.0-34.0); Mean Corpuscular Hgb Conc 35.2 g/dL (32.0-36.0); Mean Corpuscular Volume 93.2 fL (80.0-100.0); Mean Platelet Volume 9.3 fL (9.4-12.4); Monocytes # (auto) 0.77 K/uL (0.11-0.59); Monocytes % (auto) 9.9 %; Neutrophils # (auto) 3.57 K/uL (1.40-6.50); Neutrophils % (auto) 45.8 %; Platelet Count 248 K/uL (130-400); RDW Coefficient of Variation 12.4 % (11.5-14.5); RDW Standard Deviation 42.8 fL (36.4-46.3); Red Blood Count 4.27 M/uL (4.20-5.40); White Blood Count 7.79 K/ul (4.8-10.8)
--- NOTE | 2024-06-20 19:47 | CT Scan Report ---
CTA ANGIOGRAPHY OF THE HEAD CLINICAL HISTORY: neuro deficit, acute stroke suspected COMPARISON STUDY: CTA of the head June 06, 2024. TECHNIQUE: Helical axial images of the head were obtained following uneventful intravenous administr ation of 120 cc of Optiray. Sagittal and coronal reconstructions were viewed as well as maximal inten sity projections on an independent 3-D workstation. Automated exposure control was utilized for the study. A dose lowering technique was utilized adhering to the principles of ALARA. CT DOSE: 2051.18 mGy.cm FINDINGS: No acute intracranial hemorrhage, midline shift or mass effect is present. Brain volume is normal. Ventricular system is normal. Basal cisterns are patent. There is moderate plaque within the bilateral cavernous carotids. There is mild stenosis of the right cavernous carotid. No large vessel occlusion is identified. Posterior circulation is intact. There is no intracranial aneurysm. There is persistence of the left posterior cerebral artery and a large right posterior communicating ar wilner. IMPRESSION: No large vessel occlusion. No intracranial aneurysm. ACT 112: Negative or not required by law. Electronically signed by: Tato Epstein M.D. 06/20/2024 7:44 PM
[2024-06-20 19:59] LABS: Albumin Globulin Ratio 1.9 (0.9-2); Albumin Level 3.9 gm/dl (3.4-5.0); BUN Creatinine Ratio 36.1 (10-20); Bilirubin,Total 0.3 mg/dl (0.2-1.0); Calcium 8.5 mg/dl (8.6-10.3); Creatinine Clr Calc Pharmacy 70.4 ml/min; Est GFR (African American) 101.3 ml/min; Est GFR (Non-African American) 87.4 ml/min; Globulin 2.1 gm/dl (2.5-4.0); Potassium 3.8 mmol/L (3.5-5.1)
[2024-06-20 20:05] LABS: Troponin I High Sensitivity 3.1 pg/ml (0-14)
[2024-06-20 20:14] LABS: Partial Thromboplastin Ratio 0.9; Partial Thromboplastin Time 24 Seconds (21-31); Prothrombin Time 10.5 Seconds (9.0-12.0)
--- NOTE | 2024-06-20 20:16 | XRay Report ---
XR chest 1V portable CLINICAL HISTORY: neuro deficit, acute stroke suspected COMPARISON STUDY: Chest radiograph June 06, 2024. FINDINGS: There is no pneumothorax or pleural effusion. Cardiomegaly is unchanged. A large hiatal her abbie with intrathoracic stomach is again noted. Upper mediastinal widening is unchanged and due to a l arge thyroid goiter with associated rightward displacement of the trachea. There is no consolidation to suggest pneumonia. Pulmonary vascular congestion is unchanged. IMPRESSION: 1. No significant change in appearance of the chest. Cardiomegaly with pulmonary vascular congestion. 2. Large hiatal hernia. 3. Thyroid goiter. ACT 112: Negative or not required by law. Electronically signed by: Tato Epstein M.D. 06/20/2024 8:14 PM
--- NOTE | 2024-06-20 23:21 | History & Physical Report ---
Date of Service June 20, 2024 Assessment & Plan (1) Stroke-like symptoms: Plan: 79-year-old female with past medical history significant for multinodal goiter, osteoarthritis of both knees, osteoporosis, neuropathy, epilepsy, GERD generalized anxiety, depression, history of TIA who lives alone at home comes because of strokelike symptoms.Patient states around 6 PM her son-in-law dropped her at home when she was going inside she felt weak in the legs and had some slurred speech and slowly has to lay down on the floor and called her son-in-law and was brought to the hospital. The symptoms of slurred speech lasted for about 20 minutes. Currently back to her baseline. Denies any headache. No dizziness. Vision is okay. No runny nose or sore throat. No cough. Appetite is okay. No difficulty swallowing. No chest pain or shortness of breath. No nausea no abdominal pain. Normal bowel and bladder movements. Currently resting comfortably. Hemodynamically stable. Patient was recently in the hospital with a similar episode and at the time workup was unremarkable and MRI was not done because of severe claustrophobia. Plan for open MRI as outpatient. Patient also seems could not tolerate Lipitor in the past and PCP recommended Crestor which patient wanted to think about. There is appointment with neurology on June 23 . Strokelike symptoms Had episode of slurred speech Currently back to baseline CT head, CTA head and neck unremarkable On aspirin and Plavix [place] neurology recommended pravastatin And also advised to get Plavix assay and homocystine levels Neurochecks Speech and PT OT evaluation Neuroconsult in a.m. for further recommendations History of seizures On carbamazepine Will monitor Depression Generalized anxiety disorder On Lexapro Multinodular goiter- On methimazole-will continue Right arm swelling possibly from iv infiltration will monitor DVT prophylaxis SCDs History of Present Illness Chief Complaint: Strokelike symptoms Primary Care Provider: Elvia Rodriguez MD 79-year-old female with past medical history significant for multinodal goiter, osteoarthritis of both knees, osteoporosis, neuropathy, epilepsy, GERD generalized anxiety, depression, history of TIA who lives alone at home comes because of strokelike symptoms.Patient states around 6 PM her son-in-law dropped her at home when she was going inside she felt weak in the legs and had some slurred speech and slowly has to lay down on the floor and called her son-in-law and was brought to the hospital. The symptoms of slurred speech lasted for about 20 minutes. Currently back to her baseline. Denies any headache. No dizziness. Vision is okay. No runny nose or sore throat. No cough. Appetite is okay. No difficulty swallowing. No chest pain or shortness of breath. No nausea no abdominal pain. Normal bowel and bladder movements. Currently resting comfortably. Hemodynamically stable. Patient was recently in the hospital with a similar episode and at the time workup was unremarkable and MRI was not done because of severe claustrophobia. Plan for open MRI as outpatient. Patient also seems could not tolerate Lipitor in the past and PCP recommended Crestor which patient wanted to think about. There is appointment with neurology on June 23 . Past medical history. As mentioned above Past surgical history. Relieve inner eye pressure bilaterally. Bilateral cataracts. Repair of elbow fracture. Social history. Lives alone. No smoking. Alcohol rarely. No drug use. Family history. Mother had coronary disease. Uterine cancer. Father had emphysema. Daughter had breast cancer. Allergies Allergy/AdvReac Type Severity Reaction Status Date / Time clams Allergy Severe Dyspepsia, Verified 06/20/24 20:44 abdominal pain Home Medications Medication Instructions Recorded Confirmed Type turmeric 400 mg capsule 400 mg PO QAM 07/24/19 06/20/24 History calcium carbonate 500 mg-vitamin 1 tab PO BID 04/24/22 06/20/24 History D3 5 mcg (200 unit) tablet (Calcium 500 + D) carbamazepine 400 mg 400 mg PO Q12H 04/24/22 06/20/24 History tablet,extended release,12 hr glucosamine-chondroitin 250 mg-200 1 tab PO BID 04/24/22 06/20/24 History mg tablet (Osteo Bi-Flex) multivitamin with minerals 1 tab PO QDL 04/24/22 06/20/24 History olopatadine 0.1 % eye drops 1 drp OPB DAILY PRN allergies 04/24/22 06/20/24 History vitamin B complex 1 tab PO QDL 04/24/22 06/20/24 History L.acidop,casei,lactis,rham-B.lact,marcelle 1 cap PO QPM 05/17/23 06/20/24 History 625 mg (10 billion cell) capsule (Advanced Probiotic) escitalopram oxalate 10 mg tablet 10 mg PO HS 05/17/23 06/20/24 History methimazole 5 mg tablet 5 mg PO QAM 05/17/23 06/20/24 History aspirin 81 mg tablet,delayed 81 mg PO QAM 09/04/23 06/20/24 History release latanoprost 0.005 % eye drops 1 drp OPR HS 09/04/23 06/20/24 History clopidogrel 75 mg tablet 75 mg PO QAM #20 tabs 06/08/24 06/20/24 Rx Past Med/Surg History Problem List (Updated 06/21/24 @ 00:51 by Efren Smith DO) Acute hyperglycemia (Acute) Stroke-like symptoms (Acute) Status post left knee replacement (~06/2023) Encounter for pre-operative examination Hyperthyroidism Taking Methimazole TIA (transient ischemic attack) (Acute) Osteoarthritis of right knee Osteoporosis Medical History Hx of compression fracture of spine 2017, "mid back" > "healed" Anxiety Osteoarthritis TIA (transient ischemic attack) 04/2022, possible TIA (testing "inconclusive") Multinodular goiter Seizure disorder Hx epilepsy, no seizure x several years Arthritis Hiatal hernia Diverticular disease Hx of basal cell carcinoma s/p excision Glaucoma B/L Surgical History History of tonsillectomy History of tooth extraction Hx of cataract surgery R/L History of colonoscopy Hx laparoscopic cholecystectomy Laparoscopic Cholecystectomy (08/06/19): Grade 1 view, MAC#3, ETT 7.0, atraumatic Hx of basal cell carcinoma excision History of elbow surgery Right Family History Daughter Breast cancer Social History Smoking Status: Never smoker Second Hand Exposure: No; Do You Dip or Chew Tobacco: No; Hx Alcohol Use: No Hx Substance Use: No Preferred Language: Bahraini Communication Ability: Effective Bed Rubber Required: No Beliefs That Will Affect Care: None marital status: Current Living Situation: Alone Current Living Situation Comment: Lives alone in apartment in skilled nursing community in [place] current occupational status: retired How many Children do You have: 1 Other Information That Helps Us Care for You: No Feels Safe at Home: Yes Safety Concerns: Feels Safe At This Time Assistive Devices: Glasses and Walker Review of Systems Review of Systems: All systems reviewed & are unremarkable except as noted in HPI & below Physical Exam Physical Exam: General- Not in distress Head- atraumatic Eyes- PERRL. ENT- oropharynx clear Neck- supple, no JVD. Lungs- clear to auscultation , no wheezing or crackles. Heart- regular rhythm; no murmur, no gallop. Abdomen- normal bowel sounds, soft, nontender, no distension Extremities- no pretibial edema, no erythema seen. Right arm swollen Neuro- alert, oriented PERRL, no facial palsy; no dysarthria; motor 5/5 bilaterally; no pronator drift, sensations intact. Skin- warm & dry Results & Data Results & Data Vital Signs (Past 12 Hours) Vital Signs Temp Pulse Resp BP Pulse Ox O2 Del Method 06/20/24 21:36 95 H 21 140/82 96 06/20/24 21:00 138/87 06/20/24 21:00 93 H 20 96 06/20/24 20:39 103 H 20 91 06/20/24 20:39 136/95 06/20/24 20:39 136/95 06/20/24 20:30 92 H 16 99 06/20/24 20:09 93 H 16 98 06/20/24 20:04 136/86 06/20/24 19:36 90 16 97 06/20/24 19:34 91 H 06/20/24 19:32 140/82 06/20/24 19:14 36.4 C L 88 16 140/82 96 Room Air Diagnostic Findings Laboratory Results WBC 7.79 K/ul (4.8-10.8) 06/20/24 19:28 RBC 4.27 M/uL (4.20-5.40) 06/20/24 19:28 Hgb 14.0 g/dl (12.0-16.0) 06/20/24 19:28 Hct 39.8 % (37.0-47.0) 06/20/24 19:28 MCV 93.2 fL (80.0-100.0) 06/20/24 19:28 MCH 32.8 pg (25.0-34.0) 06/20/24 19: MCHC 35.2 g/dL (32.0-36.0) 06/20/24: RDW Std Deviation 42.8 fL (36.4-46.3) 06/20/24: RDW Coeff of Bhavesh 12.4 % (11.5-14.5) 06/20/24: Plt Count 248 K/uL (130-400) 06/20/24: MPV 9.3 fL (9.4-12.4) L 06/20/24: Immature Gran % (Auto) 0.3 % 06/20/24: Neut % (Auto) 45.8 % 06/20/24: Lymph % (Auto) 39.8 % 06/20/24: Conway % (Auto) 9.9 % 06/20/24: Eos % (Auto) 3.2 % 06/20/24: Baso % (Auto) 1.0 % 06/20/24: Neut # (Auto) 3.57 K/uL (1.40-6.50) 06/20/24: Lymph # (Auto) 3.10 K/uL (1.20-3.40) 06/20/24: Conway # (Auto) 0.77 K/uL (0.11-0.59) H 06/20/24: Eos # (Auto) 0.25 K/uL (0.00-0.50) 06/20/24: Baso # (Auto) 0.08 K/uL (0.00-0.20) 06/20/24: Immature Gran # (Auto) 0.02 K/uL (0.01-0.20) 06/20/24: PT 10.5 Seconds (9.0-12.0) 06/20/24: INR 1.0 (0.9-1.1) 06/20/24: APTT 24 Seconds (21-31) 06/20/24: PTT Ratio 0.9 06/20/24: Plt Func Collagen/Epi 125 Seconds (80-184) 06/20/24 21:00 Sodium 139 mmol/L (136-145) 06/20/24 19:28 Potassium 3.8 mmol/L (3.5-5.1) 06/20/24 19:28 Chloride 107 mmol/L (98-107) 06/20/24 19:28 Carbon Dioxide 25 mmol/L (21-32) 06/20/24 19:28 Anion Gap 7 (3-11) 06/20/24 19:28 BUN 22 mg/dl (6-23) 06/20/24 19:28 Creatinine 0.61 mg/dl (0.6-1.2) 06/20/24 19:28 Est Cr Clr Drug Dosing 70.4 ml/min 06/20/24 19:28 Est GFR ( Amer) 101.3 ml/min 06/20/24 19:28 Est GFR (Non-Af Amer) 87.4 ml/min 06/20/24 19:28 BUN/Creatinine Ratio 36.1 (10-20) H 06/20/24 19:28 Glucose 112 mg/dl (70-99(Fasting)) H 06/20/24 19:28 POC Glucose 113 mg/dl (70-99) H 06/20/24 19:37 Calcium 8.5 mg/dl (8.6-10.3) L 06/20/24 19:28 Magnesium 2.0 mg/dl (1.7-2.4) 06/20/24 19:28 Total Bilirubin 0.3 mg/dl (0.2-1.0) 06/20/24 19:28 AST 17 U/L (13-39) 06/20/24 19:28 ALT 12 U/L (7-52) 06/20/24 19:28 Alkaline Phosphatase 116 U/L (34-104) H 06/20/24 19:28 Troponin I High Sens 3.1 pg/ml (0-14) 06/20/24 19:28 Total Protein 6.0 gm/dl (6.0-8.3) 06/20/24 19:28 Albumin 3.9 gm/dl (3.4-5.0) 06/20/24 19:28 Globulin 2.1 gm/dl (2.5-4.0) L 06/20/24 19:28 Albumin/Globulin Ratio 1.9 (0.9-2) 06/20/24 19:28 Impressions Chest X-Ray 06/20/24 19:14 XR chest 1V portable CLINICAL HISTORY: neuro deficit, acute stroke suspected COMPARISON STUDY: Chest radiograph June 06, 2024. FINDINGS: There is no pneumothorax or pleural effusion. Cardiomegaly is unchanged. A large hiatal hernia with intrathoracic stomach is again noted. Upper mediastinal widening is unchanged and due to a large thyroid goiter with associated rightward displacement of the trachea. There is no consolidation to suggest pneumonia. Pulmonary vascular congestion is unchanged. IMPRESSION: 1. No significant change in appearance of the chest. Cardiomegaly with pulmonary vascular congestion. 2. Large hiatal hernia. 3. Thyroid goiter. ACT 112: Negative or not required by law. Electronically signed by: Tato Epstein M.D. 06/20/2024 8:[address] 06/20/24 19:14 CT OF THE HEAD WITHOUT CONTRAST CLINICAL HISTORY: neuro deficit, acute stroke suspected COMPARISON STUDY: Head CT June 06, 2024. TECHNIQUE: Helical axial images of the head were obtained without IV contrast. Automated exposure control was utilized for the study. A dose lowering technique was utilized adhering to the principles of ALARA. FINDINGS: No acute intracranial hemorrhage, midline shift or mass effect is present. White matter hypodensities are unchanged and favor small vessel disease. The ventricular system is unremarkable. The basal cisterns are patent. No extra-axial collections are present. There are no findings to suggest acute dural sinus thrombosis or acute territorial infarct. No significant calvarial abnormalities are present. Visualized portions of the sinuses and mastoid air cells are clear. IMPRESSION: No acute intracranial findings. ACT 112: Negative or not required by law. Electronically signed by: Tato Epstein M.D. 06/20/2024 7:27 PM Head CTA 06/20/24 19:14 CTA ANGIOGRAPHY OF THE HEAD CLINICAL HISTORY: neuro deficit, acute stroke suspected COMPARISON STUDY: CTA of the head June 06, 2024. TECHNIQUE: Helical axial images of the head were obtained following uneventful intravenous administration of 120 cc of Optiray. Sagittal and coronal reconstructions were viewed as well as maximal intensity projections on an independent 3-D workstation. Automated exposure control was utilized for the study. A dose lowering technique was utilized adhering to the principles of ALARA. CT DOSE: 2051.18 mGy.cm FINDINGS: No acute intracranial hemorrhage, midline shift or mass effect is present. Brain volume is normal. Ventricular system is normal. Basal cisterns are patent. There is moderate plaque within the bilateral cavernous carotids. There is mild stenosis of the right cavernous carotid. No large vessel occlusion is identified. Posterior circulation is intact. There is no intracranial aneurysm. There is persistence of the left posterior cerebral artery and a large right posterior communicating artery. IMPRESSION: No large vessel occlusion. No intracranial aneurysm. ACT 112: Negative or not required by law. Electronically signed by: Tato Epstein M.D. 06/20/2024 7:44 PM Neck CTA 06/20/24 19:14 CT ANGIOGRAPHY OF THE NECK WITH CONTRAST CLINICAL HISTORY: neuro deficit, acute stroke suspected COMPARISON STUDY: CT angiography of the neck June 06, 2024. Technique: CT angiography of the carotid and vertebral arteries was obtained using Optiray and 3D reconstruction on an independent workstation. NASCET criteria was utilized. Automated exposure control was utilized for the study. A dose lowering technique was utilized adhering to the principles of ALARA. Findings: A multinodular thyroid goiter is again noted. This is similar to prior exams. There is no cervical lymphadenopathy. There are no cervical spine fractures. Visualized portions of the lung apices are unremarkable. The bilate ral common carotid, cervical internal carotid and vertebral arteries are patent. No stenosis or dissection is identified. There is no aneurysm within the neck. There is mild plaque within the carotid bifurcations without stenosis. IMPRESSION: No stenosis or dissection within the bilateral common carotid, cervical internal carotid or vertebral arteries. ACT 112: Negative or not required by law. Electronically signed by: Tato Epstein M.D. 06/20/2024 7:38 PM ECG Additional Comments: ECG. Normal sinus rhythm rate of 89. Incomplete right bundle branch block. Code Status & VTE Plan VTE Prophylaxis Plan VTE Prophylaxis will be ordered: Yes
[2024-06-21] MEDS ORDERED: POLYETHYLENE (MIRALAX) 17 GM PACK PO PRN (00:35)
[2024-06-21] MEDS ORDERED: PHARMACIST DISCHARGE MED REC CONSULT PRN (00:35)
[2024-06-21] MEDS ORDERED: NITROGLYCERIN SL 0.4 MG/TAB TAB SL PRN (00:35)
[2024-06-21] MEDS ORDERED: ACETAMINOPHEN 325 MG TAB PO PRN (00:35)
[2024-06-21] MEDS: SODIUM CHLORIDE 0.9% 1,000 ML IV SCH (01:04)
[2024-06-21] MEDS: carBAMazepine XR 200 MG TABCR PO SCH (01:21)
[2024-06-21] MEDS: ESCITALOPRAM OXALATE 10 MG TAB PO STA (01:36)
[2024-06-21 07:19] LABS: Basophils # (auto) 0.08 K/uL (0.00-0.20); Basophils % (auto) 0.9 %; Eosinophils # (auto) 0.11 K/uL (0.00-0.50); Eosinophils % (auto) 1.3 %; Hematocrit (blood only) 37.1 % (37.0-47.0); Hemoglobin 13.2 g/dl (12.0-16.0); Immature Granulocytes # (auto) 0.02 K/uL (0.01-0.20); Immature Granulocytes % (auto) 0.2 %; Lymphocytes # (auto) 2.06 K/uL (1.20-3.40); Lymphocytes % (auto) 23.9 %; Mean Corpuscular Hemoglobin 32.8 pg (25.0-34.0); Mean Corpuscular Hgb Conc 35.6 g/dL (32.0-36.0); Mean Corpuscular Volume 92.1 fL (80.0-100.0); Mean Platelet Volume 9.3 fL (9.4-12.4); Monocytes % (auto) 11.6 %; Neutrophils # (auto) 5.36 K/uL (1.40-6.50); Neutrophils % (auto) 62.1 %; Platelet Count 256 K/uL (130-400); RDW Coefficient of Variation 12.5 % (11.5-14.5); RDW Standard Deviation 42.5 fL (36.4-46.3); Red Blood Count 4.03 M/uL (4.20-5.40); White Blood Count 8.63 K/ul (4.8-10.8)
--- NOTE | 2024-06-21 07:33 | Electrocardiogram Report ---
Test Reason : Blood Pressure : */* mmHG Vent. Rate : 89 BPM Atrial Rate : 89 BPM P-R Int : 196 ms QRS Dur : 110 ms QT Int : 380 ms P-R-T Axes : 38 25 23 degrees QTcB Int : 462 ms Normal sinus rhythm Incomplete right bundle branch block Borderline ECG When compared with ECG of 06-Jun-2024 21:06, Incomplete right bundle branch block is now Present Confirmed by Crescencio Cuello ([id number]) on 06/21/2024 7:33:08 AM Referred By: Confirmed By: Crescencio Cuello
[2024-06-21 07:44] LABS: Calcium 8.4 mg/dl (8.6-10.3); Creatinine Clr Calc Pharmacy 84.8 ml/min; Est GFR (African American) 108.2 ml/min; Est GFR (Non-African American) 93.4 ml/min
[2024-06-21] MEDS: CEROVITE ADV FORMULA TAB PO SCH (08:16)
[2024-06-21] MEDS: ASPIRIN 81 MG ECTAB PO SCH (08:16)
[2024-06-21] MEDS: CLOPIDOGREL BISULFATE 75 MG TAB PO SCH (08:16)
[2024-06-21] MEDS: CALCIUM 600MG + VIT D 400 IU TAB PO SCH (08:16)
[2024-06-21] MEDS: methIMAzole 5 MG TABLET PO SCH (08:16)
[2024-06-21] MEDS ORDERED: NON-FORMULARY MEDICATION (Glucosamine-Chondroitin [Osteo Bi-Flex] 250-200 mg Tablet) PO SCH (09:00)
[2024-06-21 09:09] LABS: Estimated Average Glucose 103 mg/dl; Hemoglobin A1C 5.2 % (4.5-5.6)
--- NOTE | 2024-06-21 15:13 | Hospitalist Progress Note ---
Date of Service June 21, 2024 Assessment & Plan (1) Stroke-like symptoms: (2) Osteoarthritis of right knee: (3) Osteoporosis: (4) Anxiety: (5) Hyperthyroidism: (6) Seizure disorder: Plan 79-year-old female with past medical history significant for multinodal goiter, osteoarthritis of both knees, osteoporosis, neuropathy, epilepsy, GERD generalized anxiety, depression, history of TIA who lives alone at home comes because of strokelike symptoms.Patient states around 6 PM her son-in-law dropped her at home when she was going inside she felt weak in the legs and had some slurred speech and slowly has to lay down on the floor and called her son-in-law and was brought to the hospital. The symptoms of slurred speech lasted for about 20 minutes. Currently back to her baseline. Denies any headache. No dizziness. Vision is okay. No runny nose or sore throat. No cough. Appetite is okay. No difficulty swallowing. No chest pain or shortness of breath. No nausea no abdominal pain. Normal bowel and bladder movements. Currently resting comfortably. Hemodynamically stable. Patient was recently in the hospital with a similar episode and at the time workup was unremarkable and MRI was not done because of severe claustrophobia. Plan for open MRI as outpatient. Patient also seems could not tolerate Lipitor in the past and PCP recommended Crestor which patient wanted to think about. There is appointment with neurology on June 23 . Strokelike symptoms Had episode of slurred speech CT head, CTA head and neck unremarkable On aspirin and Plavix Status post telehealth assessment -[place] neurology recommended pravastatin And also advised to get Plavix assay and homocystine levels-homocystine level is pending Lipid profile has been unremarkable ,started on pravastatin 20 mg a day Speech and PT OT evaluation Neuroconsult in a.m. for further recommendations No more slurred speech and does not have any other neurological deficit on examination Does not have any issues with swallowing but await speech evaluation Will get PT and OT evaluation prior to discharge History of seizures On carbamazepine No seizures activity Depression Generalized anxiety disorder On Lexapro Multinodular goiter- On methimazole-will continue Twice Right arm swelling possibly from iv infiltration will monitor DVT prophylaxis SCDs Hypothyroidism Admission and Anticipated Discharge Date Admission Date: June 20, 2024 Subjective 06/21/2024 The patient was seen and examined in telemetry unit She was admitted with episode of slurred speech which has resolved since admission Has had symptoms of TIA before Denies any significant symptoms during examination Review of Systems Review of Systems: All systems reviewed and are unremarkable except as noted below Physical Exam Physical Exam: Lying in bed without any acute distress Constitutional: well developed, well nourished and average body habitus; not ill appearing Eyes: PERRL, conjunctivae normal, anicteric sclerae ENMT: external ear and nose normal, oropharynx normal Neck: trachea midline, no thyromegaly Respiratory: no respiratory distress Auscultation: lungs clear to auscultation bilaterally Cardiovascular: Rate/Rhythm: regular rate and regular rhythm; not tachycardic Heart Sounds: normal S1 and normal S2; no murmur Extremities: no edema Gastrointestinal (Abdomen): Inspection/Auscultation: normal bowel sounds; abdomen not distended Percussion/Palpation: abdomen soft; abdomen nontender Musculoskeletal: No acute arthritis involving any of the joint Neurologic: normal touch/pain/proprioception and moves all extremities; no focal motor deficits Lymphatic: no cervical or axillary lymphadenopathy Results & Data Results & Data Vital Signs (Past 12 Hours) Vital Signs Temp Pulse Resp BP Pulse Ox O2 Del Method 06/21/24 11:46 36.6 C 80 18 115/71 95 Room Air 06/21/24 07:40 36.6 C 79 18 105/65 95 Room Air Laboratory Results Short CBC 06/20/24 06/21/24 Range/Units 19:28 06:43 WBC 7.79 8.63 (4.8-10.8) K/ul Hgb 14.0 13.2 (12.0-16.0) g/dl Hct 39.8 37.1 (37.0-47.0) % Plt Count 248 256 (130-400) K/uL BMP 06/20/24 06/21/24 19:28 06:43 Sodium 139 140 Potassium 3.8 4.0 Chloride 107 109 H Carbon Dioxide 25 25 BUN 22 15 Creatinine 0.61 0.50 L Glucose 112 H 97 Calcium 8.5 L 8.4 L Liver Function 06/20/24 Range/Units 19:28 Total Bilirubin 0.3 (0.2-1.0) mg/dl AST 17 (13-39) U/L ALT 12 (7-52) U/L Alkaline Phosphatase 116 H (34-104) U/L Albumin 3.9 (3.4-5.0) gm/dl Medications Administered Current Inpatient Medications Acetaminophen (Acetaminophen 325 Mg Tab) 650 mg PO Q4H PRN PRN Reason: Pain or Fever Stop: 07/21/24 00:34 Aspirin (Aspirin 81 Mg Ectab) 81 mg PO QAM [facility] Stop: 07/21/24 08:59 Last Admin: 06/21/24 08:16 Dose: 81 mg Calcium/Vitamin D (Calcium 600mg + Vit D 400 Iu Tab) 1 tab PO BID [facility] Stop: 07/21/24 08:59 Last Admin: 06/21/24 08:16 Dose: 1 tab Carbamazepine (Carbamazepine Xr 200 Mg Tabcr) 400 mg PO BID [facility] Stop: 07/21/24 00:59 Last Admin: 06/21/24 08:16 Dose: 400 mg Clopidogrel Bisulfate (Clopidogrel Bisulfate 75 Mg Tab) 75 mg PO QAM [facility] Stop: 07/21/24 08:59 Last Admin: 06/21/24 08:16 Dose: 75 mg Escitalopram Oxalate (Escitalopram Oxalate 10 Mg Tab) 10 mg PO HS [facility] Stop: 07/21/24 20:59 Lactobacillus Acidophilus (Advanced Probiotic 625 Mg Capsule) 1,250 mg PO QPM [facility] Stop: 07/21/24 20:59 Latanoprost (Latanoprost 0.005% Op Soln 2.5 Ml Btl) 1 drops OPR HS [facility] Stop: 07/21/24 20:59 Methimazole (Methimazole 5 Mg Tablet) 5 mg PO QAM [facility] Stop: 07/21/24 08:59 Last Admin: 06/21/24 08:16 Dose: 5 mg Miscellaneous (Pataday~Order Awaiting Action) 1 each N/A QS [facility] Stop: 07/21/24 07:59 Miscellaneous Information (Pharmacist Discharge Med Rec Consult) 1 each N/A UD PRN PRN Reason: Consult Stop: 07/21/24 00:34 Multivitamins/Minerals (Cerovite Adv Formula Tab) 1 tab PO QDL [facility] Stop: 07/21/24 11:29 Last Admin: 06/21/24 08:16 Dose: 1 tab Nitroglycerin (Nitroglycerin Sl 0.4 Mg/Tab Tab) 0.4 mg SL Q5M PRN PRN Reason: Chest Pain Stop: 07/21/24 00:34 Polyethylene Glycol (Polyethylene (Miralax) 17 Gm Pack) 17 gm PO DAILY PRN PRN Reason: Constipation Stop: 07/21/24 00:34 Pravastatin Sodium (Pravastatin Sod 20 Mg Tab) 20 mg PO DAILY@1700 [facility] Stop: 07/21/24 16:59 Vitamin B Complex (Vitamin B Complex Tab) 1 tab PO QDL [facility] Stop: 07/21/24 11:29
--- NOTE | 2024-06-21 15:55 | Neurology Consultation ---
Date of Consultation June 21, 2024 Assessment & Plan (1) Stroke-like symptoms: Symptoms are less likely to be related to a thromboembolic phenomena although cannot entirely exclude. Symptoms are most suggestive of hypoperfusion events, rule out tachycardia/bradycardia, vasovagal event? The patient has a thyroid goiter with mass effect on the trachea could be causing vagal stimulation in certain neck positions., arrhythmias, anxiety related. Events are less likely to represent seizures Plan The patient has had multiple recent echoes with no evidence of structural cardiac abnormality. She is currently wearing a Zio patch. CTA with no significant vascular stenosis She is on carbamazepine for seizures please check carbamazepine levels. Check TSH, consider dedicated CT scan of the neck. Repeat CT scan of the head to entirely rule out brainstem infarct. Send myasthenia gravis panel for later follow-up although less likely. The patient has no proximal muscle weakness on examination today that Was Done by the Help of Her nurse. Telehealth Consultation Telehealth Information Telehealth Information: I performed this visit using a real-time telehealth connection between my location and the patients location ([facility]). After connecting through interactive tele-video, patient was identified by name and date of and/or wristband check.Patient (or authorized healthcare traveling representative) was informed that this was a telemedicine visit and it was being conducted confidentially over secure lines. My office door was closed and no one else was present in the room with me.Patient (or authorized healthcare traveling representative) provided consent to proceed with the visit, expressed an understanding of privacy and security of the telemedicine visit, and gave permission to have a hospital traveling representative in the room in order to assist with the visit and to conduct portions of the visit, as needed. I informed the patient (or authorized healthcare traveling representative) that I reviewed their record and presented the opportunity for them to ask any questions regarding the visit today. The patient agreed to participate. History of Present Illness Reason for Consultation: Stroke-like symptoms Requesting Physician: Melanie Schuler MD Attending Physician: Melanie Schuler MD History of Present Illness Malinda Kenney is a . 79-year-old female patient with severe anxiety, history of seizure disorder, history of TIAs, Multinodular goiter with some deviationof the trachea prior presentations for generalized weakness. The patient presented to the hospital yesterday because she suddenly started felt weak. She was being dropped down by her son-in-law to her house, she will come to her house and suddenly felt bilateral leg weakness, lightheadedness and her speech was slurred, this eventually improved. At the time of my evaluation the patient said she had improved but then she started slurring her speech and having a nasal tone to her speech. When asked about dizziness she says maybe I feel a little bit dizzy. She denies any numbness or weakness that involves 1 side. She denies any spinning sensation denies any double vision. The patient denies any recent illnesses. Allergies Allergy/AdvReac Type Severity Reaction Status Date / Time clams Allergy Severe Dyspepsia, Verified 06/20/24 20:44 abdominal pain Home Medications Medication Instructions Recorded Confirmed Type turmeric 400 mg capsule 400 mg PO QAM 07/24/19 06/20/24 History calcium carbonate 500 mg-vitamin 1 tab PO BID 04/24/22 06/20/24 History D3 5 mcg (200 unit) tablet (Calcium 500 + D) carbamazepine 400 mg 400 mg PO Q12H 04/24/22 06/20/24 History tablet,extended release,12 hr glucosamine-chondroitin 250 mg-200 1 tab PO BID 04/24/22 06/20/24 History mg tablet (Osteo Bi-Flex) multivitamin with minerals 1 tab PO QDL 04/24/22 06/20/24 History olopatadine 0.1 % eye drops 1 drp OPB DAILY PRN allergies 04/24/22 06/20/24 History vitamin B complex 1 tab PO QDL 04/24/22 06/20/24 History L.acidop,casei,lactis,rham-B.lact,marcelle 1 cap PO QPM 05/17/23 06/20/24 History 625 mg (10 billion cell) capsule (Advanced Probiotic) escitalopram oxalate 10 mg tablet 10 mg PO HS 05/17/23 06/20/24 History methimazole 5 mg tablet 5 mg PO QAM 05/17/23 06/20/24 History aspirin 81 mg tablet,delayed 81 mg PO QAM 09/04/23 06/20/24 History release latanoprost 0.005 % eye drops 1 drp OPR HS 09/04/23 06/20/24 History clopidogrel 75 mg tablet 75 mg PO QAM #20 tabs 06/08/24 06/20/24 Rx Patient History Medical History Hx of compression fracture of spine 2017, "mid back" > "healed" Anxiety Osteoarthritis TIA (transient ischemic attack) 04/2022, possible TIA (testing "inconclusive") Multinodular goiter Seizure disorder Hx epilepsy, no seizure x several years Arthritis Hiatal hernia Diverticular disease Hx of basal cell carcinoma s/p excision Glaucoma B/L Surgical History History of tonsillectomy History of tooth extraction Hx of cataract surgery R/L History of colonoscopy Hx laparoscopic cholecystectomy Laparoscopic Cholecystectomy (08/06/19): Grade 1 view, MAC#3, ETT 7.0, atraumatic Hx of basal cell carcinoma excision History of elbow surgery Right Family History Daughter Breast cancer Social History Smoking Status: Never smoker Second Hand Exposure: No; Do You Dip or Chew Tobacco: No; Hx Alcohol Use: No Hx Substance Use: No Preferred Language: Persian Communication Ability: Effective 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 Beliefs That Will Affect Care: None marital status: Current Living Situation: Alone Current Living Situation Comment: Lives alone in apartment in [facility] in [place] current occupational status: retired How many Children do You have: 1 Other Information That Helps Us Care for You: No Feels Safe at Home: Yes Safety Concerns: Feels Safe At This Time Assistive Devices: Glasses and Walker Review of Systems Constitutional: Patient denies weight loss, fever, chills, and night sweats Eyes: Patient denies change in vision, tearing, pain, and redness ENT: Patient denies pain, bleeding, rhinorrhea, and dysphagia Cardiovascular: Patient denies chest pain, palpitation, dyspnea at rest, and dyspnea with exertion Respiratory: Patient denies shortness of breath, cough, wheezing, and productive cough GI: Patient denies reflux, pain, constipation, and diarrhea Skin: Patient denies rash, dryness, and itching Allergies/Immune System: Patient denies rhinorrhea, seasonal allergies, reaction to current MEDS, and joint swelling Endocrine: Patient denies weight loss, weight gain, temperature intolerance, and excessive thirst Neurological: All negative unless mentioned in the HPI Physical Exam General Constitutional: Appearance normally developed Head and face: normocephalic and atraumatic Eyes: no ptosis, no anisocoria, and no dysconjugate gaze Respiratory: normal effort Cardiovascular: regular rhythm and regular rate Abdomen: non distended Skin: no rashes, lesions, or ulcers noted Psychiatric: normal judgement and insight, normal mood, and normal affect NEUROLOGIC EXAMINATION: Mental Status:alert, oriented to time, place, person, normal recent memory, normal remote memory, normal attention span, normal concentration, normal language and normal fund of knowledge Cranial Nerves: CN 2 - no visual defect on confrontation and pupils round, equal, reactive to light CN 3, 4, 6 - extra-ocular movements intact and no nystagmus CN 5 - facial sensation intact CN 7 - no facial asymmetry CN 8 - intact hearing CN 9, 10 - palate symmetric, normal gag, mild slurring of her speech CN 11 - good shoulder shrug CN 12 - tongue midline MOTOR: Strength was at least antigravity throughout, Pronator drift was absent and There were no abnormal movements SENSATION: intact and symmetric to pinprick, light touch, vibration and joint position GAIT: stable, no ataxia and can perform tandem walking COORDINATION: no ataxia with finger to nose testing and heel to solomon testing REFLEXES: cannot assess over telemedicine NIH Stroke Scale: 1a. Level of Consciousness: alert = 0 1b. LOC Questions: (month, age): both correct = 0 1c. LOC Commands (open and close eyes, make fist and let go using non-paretic hand): obeys both correctly = 0 2. Best Gaze (eyes open and patient follows examiner's finger or face): normal = 0 3. Visual (visual threat or finger counting in each quadrant): no loss = 0 4. Facial Palsy (show teeth, raise eye brows and squeeze eyes shut, or grimace symmetry in a comatose patient): normal = 0 5a. Motor Arm (extend arm (palms down) to 90 degrees and score drift/movement (10 seconds) - Left: no drift = 0 5b. Motor Arm: (extend arm (palms down) to 90 degrees and score drift/movement (10 seconds) - Right: no drift = 0 6a. Motor Leg (elevate leg 30 degrees and score drift/ movement (5 seconds) - Left: no drift = 0 6b. Motor Leg (elevate leg 30 degrees and score drift/ movement (5 seconds) - Right: no drift = 0 7. Limb Ataxia (finger to nose, heel down solomon): absent = 0 8. Sensory (pin prick to face, arm, trunk and leg, compare side to side): normal = 0 9. Best Language: no aphasia = 0 10. Dysarthria (evaluate speech clarity by patient repeating listed words): slight dysarthria = 1 11. Extinction and Inattention: no neglect = 0 Total: 1 Results & Data Vital Signs (Past 12 Hours) Vital Signs Temp Pulse Resp BP Pulse Ox O2 Del Method 06/21/24 15:46 36.8 C 95 H 20 112/72 94 Room Air 06/21/24 11:46 36.6 C 80 18 115/71 95 Room Air 06/21/24 07:40 36.6 C 79 18 105/65 95 Room Air Laboratory Results Laboratory Results - last 24 hr 06/20/24 06/20/24 06/20/24 19:28 19:37 21:00 WBC 7.79 RBC 4.27 Hgb 14.0 Hct 39.8 MCV 93.2 MCH 32.8 MCHC 35.2 RDW Std Deviation 42.8 RDW Coeff of Bhavesh 12.4 Plt Count 248 MPV 9.3 L Immature Gran % (Auto) 0.3 Neut % (Auto) 45.8 Lymph % (Auto) 39.8 Marshall % (Auto) 9.9 Eos % (Auto) 3.2 Baso % (Auto) 1.0 Neut # (Auto) 3.57 Lymph # (Auto) 3.10 Marshall # (Auto) 0.77 H Eos # (Auto) 0.25 Baso # (Auto) 0.08 Immature Gran # (Auto) 0.02 PT 10.5 INR 1.0 APTT 24 PTT Ratio 0.9 Plt Func Collagen/Epi 125 Sodium 139 Potassium 3.8 Chloride 107 Carbon Dioxide 25 Anion Gap 7 BUN 22 Creatinine 0.61 Est Cr Clr Drug Dosing 70.4 Est GFR ( Amer) 101.3 Est GFR (Non-Af Amer) 87.4 BUN/Creatinine Ratio 36.1 H Glucose 112 H POC Glucose 113 H Estimat Average Glucose Hemoglobin A1c Calcium 8.5 L Magnesium 2.0 Total Bilirubin 0.3 AST 17 ALT 12 Alkaline Phosphatase 116 H Troponin I High Sens 3.1 Total Protein 6.0 Albumin 3.9 Globulin 2.1 L Albumin/Globulin Ratio 1.9 Triglycerides Cholesterol LDL Cholesterol, Calc VLDL Cholesterol, Calc HDL Cholesterol Cholesterol/HDL Ratio Homocysteine Pending 06/21/24 06/21/24 00:40 06:43 WBC 8.63 RBC 4.03 L Hgb 13.2 Hct 37.1 MCV 92.1 MCH 32.8 MCHC 35.6 RDW Std Deviation 42.5 RDW Coeff of Bhavesh 12.5 Plt Count 256 MPV 9.3 L Immature Gran % (Auto) 0.2 Neut % (Auto) 62.1 Lymph % (Auto) 23.9 Marshall % (Auto) 11.6 Eos % (Auto) 1.3 Baso % (Auto) 0.9 Neut # (Auto) 5.36 Lymph # (Auto) 2.06 Marshall # (Auto) 1.00 H Eos # (Auto) 0.11 Baso # (Auto) 0.08 Immature Gran # (Auto) 0.02 PT INR APTT PTT Ratio Plt Func Collagen/Epi Sodium 140 Potassium 4.0 Chloride 109 H Carbon Dioxide 25 Anion Gap 6 BUN 15 Creatinine 0.50 L Est Cr Clr Drug Dosing 84.8 Est GFR ( Amer) 108.2 Est GFR (Non-Af Amer) 93.4 BUN/Creatinine Ratio 30.0 H Glucose 97 POC Glucose 121 H Estimat Average Glucose 103 Hemoglobin A1c 5.2 Calcium 8.4 L Magnesium Total Bilirubin AST ALT Alkaline Phosphatase Troponin I High Sens Total Protein Albumin Globulin Albumin/Globulin Ratio Triglycerides 74 Cholesterol 182 LDL Cholesterol, Calc 106 VLDL Cholesterol, Calc 15 HDL Cholesterol 61 Cholesterol/HDL Ratio 3.0 Homocysteine Diagnostic Findings Head CT 06/20/24 19:14 CT OF THE HEAD WITHOUT CONTRAST CLINICAL HISTORY: neuro deficit, acute stroke suspected COMPARISON STUDY: Head CT June 06, 2024. TECHNIQUE: Helical axial images of the head were obtained without IV contrast. Automated exposure control was utilized for the study. A dose lowering technique was utilized adhering to the principles of ALARA. FINDINGS: No acute intracranial hemorrhage, midline shift or mass effect is present. White matter hypodensities are unchanged and favor small vessel disease. The ventricular system is unremarkable. The basal cisterns are patent. No extra-axial collections are present. There are no findings to suggest acute d ural sinus thrombosis or acute territorial infarct. No significant calvarial abnormalities are present. Visualized portions of the sinuses and mastoid air cells are clear. IMPRESSION: No acute intracranial findings. ACT 112: Negative or not required by law. Electronically signed by: Tato Epstein M.D. 06/20/2024 7:27 PM Head CTA 06/20/24 19:14 CTA ANGIOGRAPHY OF THE HEAD CLINICAL HISTORY: neuro deficit, acute stroke suspected COMPARISON STUDY: CTA of the head June 06, 2024. TECHNIQUE: Helical axial images of the head were obtained following uneventful intravenous administration of 120 cc of Optiray. Sagittal and coronal reconstructions were viewed as well as maximal intensity projections on an independent 3-D workstation. Automated exposure control was utilized for the study. A dose lowering technique was utilized adhering to the principles of ALARA. CT DOSE: 2051.18 mGy.cm FINDINGS: No acute intracranial hemorrhage, midline shift or mass effect is present. Brain volume is normal. Ventricular system is normal. Basal cisterns are patent. There is moderate plaque within the bilateral cavernous carotids. There is mild stenosis of the right cavernous carotid. No large vessel occlusion is identified. Posterior circulation is intact. There is no intracranial aneurysm. There is persistence of the left posterior cerebral artery and a large right posterior communicating artery. IMPRESSION: No large vessel occlusion. No intracranial aneurysm. ACT 112: Negative or not required by law. Electronically signed by: Tato Epstein M.D. 06/20/2024 7:44 PM Neck CTA 06/20/24 19:14 CT ANGIOGRAPHY OF THE NECK WITH CONTRAST CLINICAL HISTORY: neuro deficit, acute stroke suspected COMPARISON STUDY: CT angiography of the neck June 06, 2024. Technique: CT angiography of the carotid and vertebral arteries was obtained using Optiray and 3D reconstruction on an independent workstation. NASCET criteria was utilized. Automated exposure control was utilized for the study. A dose lowering technique was utilized adhering to the principles of ALARA. Findings: A multinodular thyroid goiter is again noted. This is similar to prior exams. There is no cervical lymphadenopathy. There are no cervical spine fractures. Visualized portions of the lung apices are unremarkable. The bilateral common carotid, cervical internal carotid and vertebral arteries are patent. No stenosis or dissection is identified. There is no aneurysm within the neck. There is mild plaque within the carotid bifurcations without stenosis. IMPRESSION: No stenosis or dissection within the bilateral common carotid, cervical internal carotid or vertebral arteries. ACT 112: Negative or not required by law. Electronically signed by: Tato Epstein M.D. 06/20/2024 7:38 PM Medications Administered Home Medications Medication Instructions Recorded Confirmed Last Taken turmeric 400 mg capsule 400 mg PO QAM 07/24/19 06/20/24 06/20/24 calcium carbonate 500 mg-vitamin 1 tab PO BID 04/24/22 06/20/24 06/20/24 08:00 D3 5 mcg (200 unit) tablet (Calcium 500 + D) carbamazepine 400 mg 400 mg PO Q12H 04/24/22 06/20/24 06/20/24 08:00 tablet,extended release,12 hr glucosamine-chondroitin 250 mg-200 1 tab PO BID 04/24/22 06/20/24 06/20/24 08:00 mg tablet (Osteo Bi-Flex) multivitamin with minerals 1 tab PO QDL 04/24/22 06/20/24 06/20/24 olopatadine 0.1 % eye drops 1 drp OPB DAILY PRN allergies 04/24/22 06/20/24 06/26/23 08:00 vitamin B complex 1 tab PO QDL 04/24/22 06/20/24 06/20/24 L.acidop,casei,lactis,rham-B.lact,marcelle 1 cap PO QPM 05/17/23 06/20/24 06/20/24 625 mg (10 billion cell) capsule (Advanced Probiotic) escitalopram oxalate 10 mg tablet 10 mg PO HS 05/17/23 06/20/24 06/19/24 methimazole 5 mg tablet 5 mg PO QAM 05/17/23 06/20/24 06/20/24 aspirin 81 mg tablet,delayed 81 mg PO QAM 09/04/23 06/20/24 06/20/24 release latanoprost 0.005 % eye drops 1 drp OPR HS 09/04/23 06/20/24 06/19/24 clopidogrel 75 mg tablet 75 mg PO QAM #20 tabs 06/08/24 06/20/24 06/20/24 Active Medications Generic Name Dose Route Start Last Admin Trade Name Freq PRN Reason Stop Dose Admin Aspirin 81 mg 06/21/24 09:00 06/21/24 08:16 Aspirin 81 Mg Ectab PO 07/21/24 08:59 81 mg QAM JUAN FRANCISCO Administration Calcium/Vitamin D 1 tab 06/21/24 09:00 06/21/24 08:16 Calcium 600mg + Vit D 400 Iu Tab PO 07/21/24 08:59 1 tab BID JUAN FRANCISCO Administration Carbamazepine 400 mg 06/21/24 01:00 06/21/24 08:16 Carbamazepine Xr 200 Mg Tabcr PO 07/21/24 00:59 400 mg BID JUAN FRANCISCO Administration Clopidogrel Bisulfate 75 mg 06/21/24 09:00 06/21/24 08:16 Clopidogrel Bisulfate 75 Mg Tab PO 07/21/24 08:59 75 mg QAM JUAN FRANCISCO Administration Methimazole 5 mg 06/21/24 09:00 06/21/24 08:16 Methimazole 5 Mg Tablet PO 07/21/24 08:59 5 mg QAM JUAN FRANCISCO Administration Multivitamins/Minerals 1 tab 06/21/24 11:30 06/21/24 08:16 Cerovite Adv Formula Tab PO 07/21/24 11:29 1 tab QDL JUAN FRANCISCO Administration
--- NOTE | 2024-06-21 17:10 | Communication Note ---
Date of Service: June 21, 2024 Condition has been a little worse since this afternoon with an some slurred speech and also weakness involving the both the legs. Appreciate neurology i nput and recommendation for repeat CT scan as the patient cannot tolerate MRI due to claustrophobia. Discussed with the daughter and daughter and definitely wants to have an MRI evaluate increasing dose of Ativan and even with them anesthesia if needed. Will try to get MRI this evening with 1 mg Ativan IV. If failed will get MRI under anesthesia and try it for tomorrow morning after discussion with anesthesiologist. Dr Dallin Schuler
[2024-06-21] MEDS: VITAMIN B COMPLEX TAB PO SCH (17:12)
[2024-06-21] MEDS: PATADAY~ORDER AWAITING ACTION SCH (17:12)
[2024-06-21] MEDS: LORazepam 1 MG/1 ML SYR ED Inj Use IM ONE (17:18)
[2024-06-21] MEDS: LORazepam 2 MG/1 ML VIAL IV STA (17:29)
[2024-06-21] MEDS: PRAVASTATIN SOD 20 MG TAB PO SCH (17:30)
--- NOTE | 2024-06-21 18:07 | Magnetic Resonance Report ---
MRI OF THE BRAIN WITHOUT CONTRAST CLINICAL HISTORY: Stroke. Slurred speech. Leg weakness. COMPARISON STUDY: Head CT and CTA of the head June 20, 2024. TECHNIQUE: Utilizing a 1.5 Keiry magnet and dedicated coil, multiplanar, multiecho imaging of the bra in was performed without IV contrast. FINDINGS: This exam is mildly compromised by motion artifact although is diagnostic. There are no foc i of restricted diffusion to suggest acute infarct. No acute intracranial hemorrhage, midline shift o r mass effect is present. Ventricular system is unremarkable. The basal cisterns are patent. 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 No intracranial masses are identified on unenhanced exam. Calvarial signal is no rmal. IMPRESSION: No acute intracranial findings. ACT 112: Negative or not required by law. Electronically signed by: Tato Epstein M.D. 06/21/2024 6:05 PM
[2024-06-21] MEDS: ADVANCED PROBIOTIC 625 MG CAPSULE PO SCH (19:30)
[2024-06-21] MEDS: ESCITALOPRAM OXALATE 10 MG TAB PO SCH (19:31)
[2024-06-21] MEDS: LATANOPROST 0.005% OP SOLN 2.5 ML BTL OPR SCH (19:32)
[2024-06-22 06:16] LABS: Basophils # (auto) 0.07 K/uL (0.00-0.20); Basophils % (auto) 1.1 %; Hematocrit (blood only) 35.6 % (37.0-47.0); Hemoglobin 12.2 g/dl (12.0-16.0); Immature Granulocytes # (auto) 0.01 K/uL (0.01-0.20); Immature Granulocytes % (auto) 0.2 %; Lymphocytes # (auto) 2.02 K/uL (1.20-3.40); Lymphocytes % (auto) 30.7 %; Mean Corpuscular Hemoglobin 32.3 pg (25.0-34.0); Mean Corpuscular Hgb Conc 34.3 g/dL (32.0-36.0); Mean Corpuscular Volume 94.2 fL (80.0-100.0); Mean Platelet Volume 9.2 fL (9.4-12.4); Monocytes # (auto) 0.82 K/uL (0.11-0.59); Monocytes % (auto) 12.4 %; Neutrophils # (auto) 3.47 K/uL (1.40-6.50); Neutrophils % (auto) 52.6 %; Platelet Count 211 K/uL (130-400); RDW Coefficient of Variation 12.7 % (11.5-14.5); RDW Standard Deviation 44.3 fL (36.4-46.3); Red Blood Count 3.78 M/uL (4.20-5.40); White Blood Count 6.59 K/ul (4.8-10.8)
[2024-06-22 06:32] LABS: BUN Creatinine Ratio 25.4 (10-20); Calcium 8.3 mg/dl (8.6-10.3); Creatinine Clr Calc Pharmacy 72.5 ml/min; Est GFR (African American) 102.5 ml/min; Est GFR (Non-African American) 88.4 ml/min
[2024-06-22 06:47] LABS: Thyroid Stimulating Hormone 0.842 uIu/ml (0.300-4.500)
--- NOTE | 2024-06-22 13:01 | Hospitalist Progress Note ---
Date of Service June 22, 2024 Assessment & Plan (1) Stroke-like symptoms: (2) Osteoarthritis of right knee: (3) Osteoporosis: (4) Anxiety: (5) Hyperthyroidism: (6) Seizure disorder: Plan 79-year-old female with past medical history significant for multinodal goiter, osteoarthritis of both knees, osteoporosis, neuropathy, epilepsy, GERD generalized anxiety, depression, history of TIA who lives alone at home comes because of strokelike symptoms.Patient states around 6 PM her son-in-law dropped her at home when she was going inside she felt weak in the legs and had some slurred speech and slowly has to lay down on the floor and called her son-in-law and was brought to the hospital. The symptoms of slurred speech lasted for about 20 minutes. Currently back to her baseline. Denies any headache. No dizziness. Vision is okay. No runny nose or sore throat. No cough. Appetite is okay. No difficulty swallowing. No chest pain or shortness of breath. No nausea no abdominal pain. Normal bowel and bladder movements. Currently resting comfortably. Hemodynamically stable. Patient was recently in the hospital with a similar episode and at the time workup was unremarkable and MRI was not done because of severe claustrophobia. Plan for open MRI as outpatient. Patient also seems could not tolerate Lipitor in the past and PCP recommended Crestor which patient wanted to think about. There is appointment with neurology on June 23 . Strokelike symptoms Had episode of slurred speech CT head, CTA head and neck unremarkable On aspirin and Plavix Status post telehealth assessment -[facility] neurology recommended pravastatin And also advised to get Plavix assay and homocystine levels-homocystine level is pending Lipid profile has been unremarkable ,started on pravastatin 20 mg a day Speech and PT OT evaluation Neuroconsult in a.m. for further recommendations No more slurred speech and does not have any other neurological deficit on examination Does not have any issues with swallowing but await speech evaluation Another attack of slurred speech and weak legs last evening MRI of the head without contrast is unremarkable She was reassured She will have PT and OT evaluation prior to discharge tomorrow History of seizures On carbamazepine No seizures activity Depression Generalized anxiety disorder On Lexapro Multinodular goiter- On methimazole-will continue Twice Right arm swelling possibly from iv infiltration will monitor DVT prophylaxis SCDs Hypothyroidism Admission and Anticipated Discharge Date Admission Date: June 20, 2024 Subjective 06/21/2024 The patient was seen and examined in telemetry unit She was admitted with episode of slurred speech which has resolved since admission Has had symptoms of TIA before Denies any significant symptoms during examination 06/22/2024 The patient was seen and examined in telemetry She has had another episode of slurred speech with weakness of the legs last e vening Which lasted for few minutes to half an hour MRI of the brain without contrast did not show any abnormalities Her symptoms are totally resolved this morning Review of Systems Review of Systems: All systems reviewed and are unremarkable except as noted below Physical Exam Physical Exam: Lying in bed without any acute distress Constitutional: well developed, well nourished and average body habitus; not ill appearing Eyes: PERRL, conjunctivae normal, anicteric sclerae ENMT: external ear and nose normal, oropharynx normal Neck: trachea midline, no thyromegaly Respiratory: no respiratory distress Auscultation: lungs clear to auscultation bilaterally Cardiovascular: Rate/Rhythm: regular rate and regular rhythm; not tachycardic Heart Sounds: normal S1 and normal S2; no murmur Extremities: no edema Gastrointestinal (Abdomen): Inspection/Auscultation: normal bowel sounds; abdomen not distended Percussion/Palpation: abdomen soft; abdomen nontender Neurologic: normal touch/pain/proprioception and moves all extremities; no focal motor deficits Lymphatic: no cervical or axillary lymphadenopathy Results & Data Results & Data Vital Signs (Past 12 Hours) Vital Signs Temp Pulse Pulse Resp BP Pulse Ox O2 Del Method 06/22/24 10:35 36.6 C 80 16 114/76 94 Room Air 06/22/24 09:00 Room Air 06/22/24 07:46 76 06/22/24 07:29 36.5 C 82 17 119/73 96 Room Air 06/22/24 03:39 36.4 C L 85 16 109/72 96 Room Air Laboratory Results Short CBC 06/22/24 Range/Units 05:45 WBC 6.59 (4.8-10.8) K/ul Hgb 12.2 (12.0-16.0) g/dl Hct 35.6 L (37.0-47.0) % Plt Count 211 (130-400) K/uL BMP 06/22/24 05:45 Sodium 141 Potassium 4.0 Chloride 110 H Carbon Dioxide 26 BUN 15 Creatinine 0.59 L Glucose 92 Calcium 8.3 L Medications Administered Current Inpatient Medications Acetaminophen (Acetaminophen 325 Mg Tab) 650 mg PO Q4H PRN PRN Reason: Pain or Fever Stop: 07/21/24 00:34 Aspirin (Aspirin 81 Mg Ectab) [facility] [place]: 07/21/24 08:59 Last Admin: 06/22/24 09:10 Dose: 81 mg Calcium/Vitamin D (Calcium 600mg + Vit D 400 Iu Tab) 1 tab PO BID [facility] Stop: 07/21/24 08:59 Last Admin: 06/22/24 09:10 Dose: 1 tab Carbamazepine (Carbamazepine Xr 200 Mg Tabcr) 400 mg PO BID [facility] Stop: 07/21/24 00:59 Last Admin: 06/22/24 09:10 Dose: 400 mg Clopidogrel Bisulfate (Clopidogrel Bisulfate 75 Mg Tab) [facility] Stop: 07/21/24 08:59 Last Admin: 06/22/24 09:09 Dose: 75 mg Escitalopram Oxalate (Escitalopram Oxalate 10 Mg Tab) 10 mg PO [facility] Stop: 07/21/24 20:59 Last Admin: 06/21/24 19:31 Dose: 10 mg Lactobacillus Acidophilus (Advanced Probiotic 625 Mg Capsule) 1,250 mg PO QPM [facility] Stop: 07/21/24 20:59 Last Admin: 06/21/24 19:30 Dose: 1,250 mg Latanoprost (Latanoprost 0.005% Op Soln 2.5 Ml Btl) 1 drops OPR [facility] Stop: 07/21/24 20:59 Last Admin: 06/21/24 19:32 Dose: 1 drops Methimazole (Methimazole 5 Mg Tablet) [facility] [place]: 07/21/24 08:59 Last Admin: 06/22/24 09:09 Dose: 5 mg Miscellaneous (Pataday~Order Awaiting Action) 1 each N/A QS [facility] Stop: 07/21/24 07:59 Last Admin: 06/22/24 09:06 Dose: Not Given Miscellaneous Information (Pharmacist Discharge Med Rec Consult) 1 each N/A UD PRN PRN Reason: Consult Stop: 07/21/24 00:34 Multivitamins/Minerals (Cerovite Adv Formula Tab) 1 tab PO QDL [facility] Stop: 07/21/24 11:29 Last Admin: 06/22/24 11:52 Dose: 1 tab Nitroglycerin (Nitroglycerin Sl 0.4 Mg/Tab Tab) 0.4 mg SL Q5M PRN PRN Reason: Chest Pain Stop: 07/21/24 00:34 Polyethylene Glycol (Polyethylene (Miralax) 17 Gm Pack) 17 gm PO DAILY PRN PRN Reason: Constipation Stop: 07/21/24 00:34 Pravastatin Sodium (Pravastatin Sod 20 Mg Tab) 20 mg PO DAILY@1700 [facility] Stop: 07/21/24 16:59 Last Admin: 06/21/24 17:30 Dose: 20 mg Vitamin B Complex (Vitamin B Complex Tab) 1 tab PO QDL [facility] Stop: 07/21/24 11:29 Last Admin: 06/22/24 11:52 Dose: 1 tab
[2024-06-23 08:32] LABS: Basophils # (auto) 0.06 K/uL (0.00-0.20); Basophils % (auto) 0.8 %; Eosinophils # (auto) 0.29 K/uL (0.00-0.50); Eosinophils % (auto) 3.9 %; Hematocrit (blood only) 41.9 % (37.0-47.0); Immature Granulocytes # (auto) 0.02 K/uL (0.01-0.20); Immature Granulocytes % (auto) 0.3 %; Lymphocytes # (auto) 1.97 K/uL (1.20-3.40); Lymphocytes % (auto) 26.2 %; Mean Corpuscular Hgb Conc 33.4 g/dL (32.0-36.0); Mean Corpuscular Volume 95.9 fL (80.0-100.0); Mean Platelet Volume 8.9 fL (9.4-12.4); Monocytes # (auto) 0.67 K/uL (0.11-0.59); Monocytes % (auto) 8.9 %; Neutrophils # (auto) 4.51 K/uL (1.40-6.50); Neutrophils % (auto) 59.9 %; Platelet Count 252 K/uL (130-400); RDW Coefficient of Variation 12.5 % (11.5-14.5); RDW Standard Deviation 43.9 fL (36.4-46.3); Red Blood Count 4.37 M/uL (4.20-5.40); White Blood Count 7.52 K/ul (4.8-10.8)
[2024-06-23 08:58] LABS: BUN Creatinine Ratio 22.4 (10-20); Calcium 8.8 mg/dl (8.6-10.3); Creatinine Clr Calc Pharmacy 73.4 ml/min; Est GFR (Non-African American) 88.9 ml/min; Potassium 3.9 mmol/L (3.5-5.1)
--- NOTE | 2024-06-23 09:22 | Pharmacy Report ---
- Date of Service June 23, 2024 - Pharmacy CVA/TIA Medication Review Medications to Prevent Stroke handout has been added to the patients discharge packet. Antiplatelet(s) * Aspirin 81 mg PO daily + clopidogrel 75 mg PO daily Cholesterol * Pravastatin 20 mg PO daily per [facility] * Patient w/ stroke-like symptoms, but no confirmed stroke. Thromboembolic phenomena unlikely, but can't be excluded per neurology. * No acute intracranial findings from brain MRI on 06/21/24 DVT Prophylaxis * SCD thigh Therapeutic Anticoagulation * No history of Afib/Aflutter noted Type 2 Diabetes * Patient does not have T2DM
--- NOTE | 2024-06-23 17:23 | Hospitalist Progress Note ---
Date of Service June 23, 2024 Assessment & Plan (1) Stroke-like symptoms: (2) Osteoarthritis of right knee: (3) Osteoporosis: (4) Anxiety: (5) Hyperthyroidism: (6) Seizure disorder: Plan 79-year-old female with past medical history significant for multinodal goiter, osteoarthritis of both knees, osteoporosis, neuropathy, epilepsy, GERD generalized anxiety, depression, history of TIA who lives alone at home comes because of strokelike symptoms.Patient states around 6 PM her son-in-law dropped her at home when she was going inside she felt weak in the legs and had some slurred speech and slowly has to lay down on the floor and called her son-in-law and was brought to the hospital. The symptoms of slurred speech lasted for about 20 minutes. Currently back to her baseline. Denies any headache. No dizziness. Vision is okay. No runny nose or sore throat. No cough. Appetite is okay. No difficulty swallowing. No chest pain or shortness of breath. No nausea no abdominal pain. Normal bowel and bladder movements. Currently resting comfortably. Hemodynamically stable. Patient was recently in the hospital with a similar episode and at the time workup was unremarkable and MRI was not done because of severe claustrophobia. Plan for open MRI as outpatient. Patient also seems could not tolerate Lipitor in the past and PCP recommended Crestor which patient wanted to think about. There is appointment with neurology on June 23 . Strokelike symptoms--recurrent TIAs Had episode of slurred speech CT head, CTA head and neck unremarkable On aspirin and Plavix Status post telehealth assessment -[place] neurology recommended pravastatin And also advised to get Plavix assay and homocystine levels-homocystine level is pending Lipid profile has been unremarkable ,started on pravastatin 20 mg a day Speech and PT OT evaluation Neuroconsult in a.m. for further recommendations No more slurred speech and does not have any other neurological deficit on examination Does not have any issues with swallowing but await speech evaluation Another attack of slurred speech and weak legs last evening MRI of the head without contrast is unremarkable She was reassured She will have PT and OT evaluation prior to discharge PT recommended home but the daughter is recommending further evaluation prior to discharge because of fear of falling at home Myasthenia gravis panel sent Consult was put for [facility] neurologist History of seizures On carbamazepine No seizures activity Depression Generalized anxiety disorder On Lexapro Multinodular goiter- On methimazole-will continue Twice Right arm swelling possibly from iv infiltration will monitor DVT prophylaxis SCDs She has not been moving around that much and will put her on subcu heparin CODE STATUS Full Admission and Anticipated Discharge Date Admission Date: June 20, 2024 Subjective 06/21/2024 The patient was seen and examined in telemetry unit She was admitted with episode of slurred speech which has resolved since admission Has had symptoms of TIA before Denies any significant symptoms during examination 06/22/2024 The patient was seen and examined in telemetry She has had another episode of slurred speech with weakness of the legs last evening Which lasted for few minutes to half an hour MRI of the brain without contrast did not show any abnormalities Her symptoms are totally resolved this morning 06/23/2024 Patient was seen and examined in telemetry in presence of the daughter She has been feeling fine but still having occasional attack of slurred speech The daughter wants to have further evaluation by the neurologist while she is in the hospital before being discharged She has had another episode this afternoon which resolved spontaneously without any residual effect Review of Systems Review of Systems: All systems reviewed and are unremarkable except as noted below Physical Exam Physical Exam: Lying in bed without any acute distress Constitutional: well developed, well nourished and average body habitus; not ill appearing Eyes: PERRL, conjunctivae normal, anicteric sclerae ENMT: external ear and nose normal, oropharynx normal Neck: trachea midline, no thyromegaly Respiratory: no respiratory distress Auscultation: lungs clear to auscultation bilaterally Cardiovascular: Rate/Rhythm: regular rate and regular rhythm; not tachycardic Heart Sounds: normal S1 and normal S2; no murmur Extremities: no edema Gastrointestinal (Abdomen): Inspection/Auscultation: normal bowel sounds; abdomen not distended Percussion/Palpation: abdomen soft; abdomen nontender Neurologic: normal touch/pain/proprioception and moves all extremities; no focal motor deficits Lymphatic: no cervical or axillary lymphadenopathy Results & Data Results & Data Vital Signs (Past 12 Hours) Vital Signs Temp Pulse Resp BP BP Pulse Ox O2 Del Method 06/23/24 14:47 36.8 C 80 16 142/85 H 95 Room Air 06/23/24 10:33 36.5 C 76 16 111/72 95 Room Air 06/23/24 07:22 82 16 126/77 94 Room Air Laboratory Results Short CBC 06/23/24 Range/Units 08:09 WBC 7.52 (4.8-10.8) K/ul Hgb 14.0 (12.0-16.0) g/dl Hct 41.9 (37.0-47.0) % Plt Count 252 (130-400) K/uL BMP 06/23/24 08:12 Sodium 141 Potassium 3.9 Chloride 109 H Carbon Dioxide 25 BUN 13 Creatinine 0.58 L Glucose 142 H Calcium 8.8 Medications Administered Current Inpatient Medications Acetaminophen (Acetaminophen 325 Mg Tab) 650 mg PO Q4H PRN PRN Reason: Pain or Fever Stop: 07/21/24 00:34 Aspirin (Aspirin 81 Mg Ectab) [facility]: 07/21/24 08:59 Last Admin: 06/23/24 08:36 Dose: 81 mg Calcium/Vitamin D (Calcium 600mg + Vit D 400 Iu Tab) 1 tab PO BID [facility] Stop: 07/21/24 08:59 Last Admin: 06/23/24 08:37 Dose: 1 tab Carbamazepine (Carbamazepine Xr 200 Mg Tabcr) 400 mg PO BID [facility] Stop: 07/21/24 00:59 Last Admin: 06/23/24 08:37 Dose: 400 mg Clopidogrel Bisulfate (Clopidogrel Bisulfate 75 Mg Tab) 75 mg PO QAM [facility] Stop: 07/21/24 08:59 Last Admin: 06/23/24 08:37 Dose: 75 mg Escitalopram Oxalate (Escitalopram Oxalate 10 Mg Tab) 10 mg PO HS [facility] Stop: 07/21/24 20:59 Last Admin: 06/22/24 21:23 Dose: 10 mg Lactobacillus Acidophilus (Advanced Probiotic 625 Mg Capsule) 1,250 mg PO QPM [facility] Stop: 07/21/24 20:59 Last Admin: 06/22/24 21:23 Dose: 1,250 mg Latanoprost (Latanoprost 0.005% Op Soln 2.5 Ml Btl) 1 drops OPR HS [facility] Stop: 07/21/24 20:59 Last Admin: 06/22/24 21:24 Dose: 1 drops Methimazole (Methimazole 5 Mg Tablet) [facility] Stop: 07/21/24 08:59 Last Admin: 06/23/24 08:37 Dose: 5 mg Miscellaneous (Pataday~Order Awaiting Action) 1 each N/A QS [facility] Stop: 07/21/24 07:59 Last Admin: 06/23/24 13:42 Dose: Not Given Multivitamins/Minerals (Cerovite Adv Formula Tab) 1 tab PO QDL [facility] Stop: 07/21/24 11:29 Last Admin: 06/23/24 11:09 Dose: 1 tab Nitroglycerin (Nitroglycerin Sl 0.4 Mg/Tab Tab) 0.4 mg SL Q5M PRN PRN Reason: Chest Pain Stop: 07/21/24 00:34 Polyethylene Glycol (Polyethylene (Miralax) 17 Gm Pack) 17 gm PO DAILY PRN PRN Reason: Constipation Stop: 07/21/24 00:34 Pravastatin Sodium (Pravastatin Sod 20 Mg Tab) 20 mg PO DAILY@1700 [facility] Stop: 07/21/24 16:59 Last Admin: 06/23/24 16:16 Dose: 20 mg Vitamin B Complex (Vitamin B Complex Tab) 1 tab PO QDL [facility] Stop: 07/21/24 11:29 Last Admin: 06/23/24 11:09 Dose: 1 tab
[2024-06-23] MEDS: HEPARIN SOD 5,000 UNIT/0.5 ML VIAL SQ SCH (21:44)
--- NOTE | 2024-06-24 10:40 | Neurology Consultation ---
Date of Consultation June 24, 2024 Assessment & Plan (1) Seizure disorder: (2) Stroke-like symptoms: Plan 79-year-old female with a longstanding history of epilepsy, stable with carbamazepine for many years. Has been experiencing recurrent episodes of dysarthria and bilateral leg weakness which seem consistent with posterior circulation TIA. CTA of the head and neck and brain MRI are unremarkable in this regard. 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 Means matter heterotopia's are often associated with seizure disorder. Apart from recurrent TIA, atypical breakthrough seizures are possible. Could also consider carbamazepine toxicity. Myasthenia gravis could also be considered although the tempo and sudden onset of these episodes seems atypical for this disorder. She has an intact neurolog ical examination this morning other than some mild difficulty with balance and a distal lower extremity sensory loss to vibration. I have ordered a vitamin B12 level and carbamazepine trough level. Acetylcholine receptor antibodies are pending. Would continue with dual antiplatelet therapy for the time being, aspirin and Plavix for 3 weeks, followed by transition back to Plavix monotherapy. Additional outpatient cardiac monitoring should be considered, as well as potential placement of a loop recorder. Would consider additional ambulatory EEG monitoring. Going forward, would consider switching from carbamazepine to an alternative antiseizure medication, or possibly adding an adjunctive antiseizure medication such as Keppra. May follow-up with me or one of our CARMEN's in neurology clinic in 2 to 3 weeks, or patient may choose to continue to follow with her local [facility] neurologist. 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 Her seizures have been characterized by collapse, loss of consciousness, generalized shaking of the limbs, she has had tongue bite and urinary incontinence. She has been following with the local [facility] neurology group. Over the past few months, she has been experiencing recurrent episodes of sudden onset dysarthria and leg weakness, during which time she will gradually lower herself to the ground. She denies vertigo or significant lightheadedness. She denies experiencing any associated double vision or vision change. These episodes may last 30 minutes or so and according to the patient, did not necessarily always occur while she is standing up. CT a of the head and neck are unremarkable. 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 No other abnormalities other than mild age-appropriate microvascular change in the cerebral hemispheres and viktoria. A recent echocardiogram was unremarkable, normal left ventricular ejection fraction, no significant valvular disease, left atrial size normal. Electrocardiograms have revealed an incomplete right bundle branch block, otherwise normal sinus rhythm. She had been wearing an outpatient potline monitor recently. History also corroborated with patient's daughter who was available on the phone at bedside. Allergies Allergy/AdvReac Type Severity Reaction Status Date / Time clams Allergy Severe Dyspepsia, Verified 06/20/24 20:44 abdominal pain Home Medications Medication Instructions Recorded Confirmed Type turmeric 400 mg capsule 400 mg PO QAM 07/24/19 06/20/24 History calcium carbonate 500 mg-vitamin 1 tab PO BID 04/24/22 06/20/24 History D3 5 mcg (200 unit) tablet (Calcium 500 + D) carbamazepine 400 mg 400 mg PO Q12H 04/24/22 06/20/24 History tablet,extended release,12 hr glucosamine-chondroitin 250 mg-200 1 tab PO BID 04/24/22 06/20/24 History mg tablet (Osteo Bi-Flex) multivitamin with minerals 1 tab PO QDL 04/24/22 06/20/24 History olopatadine 0.1 % eye drops 1 drp OPB DAILY PRN allergies 04/24/22 06/20/24 History vitamin B complex 1 tab PO QDL 04/24/22 06/20/24 History L.acidop,casei,lactis,rham-B.lact,marcelle 1 cap PO QPM 05/17/23 06/20/24 History 625 mg (10 billion cell) capsule (Advanced Probiotic) escitalopram oxalate 10 mg tablet 10 mg PO HS 05/17/23 06/20/24 History methimazole 5 mg tablet 5 mg PO QAM 05/17/23 06/20/24 History aspirin 81 mg tablet,delayed 81 mg PO QAM 09/04/23 06/20/24 History release latanoprost 0.005 % eye drops 1 drp OPR HS 09/04/23 06/20/24 History clopidogrel 75 mg tablet 75 mg PO QAM #20 tabs 06/08/24 06/20/24 Rx Patient History Medical History Hx of compression fracture of spine 2017, "mid back" > "healed" Anxiety Osteoarthritis TIA (transient ischemic attack) 04/2022, possible TIA (testing "inconclusive") Multinodular goiter Seizure disorder Hx epilepsy, no seizure x several years Arthritis Hiatal hernia Diverticular disease Hx of basal cell carcinoma s/p excision Glaucoma B/L Surgical History History of tonsillectomy History of tooth extraction Hx of cataract surgery R/L History of colonoscopy Hx laparoscopic cholecystectomy Laparoscopic Cholecystectomy (08/06/19): Grade 1 view, MAC#3, ETT 7.0, atraumatic Hx of basal cell carcinoma excision History of elbow surgery Right Family History Daughter Breast cancer Social History Smoking Status: Never smoker Second Hand Exposure: No; Do You Dip or Chew Tobacco: No; Hx Alcohol Use: No Hx Substance Use: No Preferred Language: Guinean Communication Ability: Effective Helpdesk Specialist Required: No Beliefs That Will Affect Care: None marital status: Current Living Situation: Alone Current Living Situation Comment: Lives alone in apartment in custodial community in [place] current occupational status: retired How many Children do You have: 1 Other Information That Helps Us Care for You: No Feels Safe at Home: Yes Safety Concerns: Feels Safe At This Time Assistive Devices: Cane and Walker Review of Systems Constitutional: no fever and no chills Eyes: no blind spots and no diplopia Ear, Nose, Mouth, Throat: no hearing loss Respiratory: no cough and no dyspnea Cardiovascular: no chest pain and no palpitations Gastrointestinal: no nausea and no vomiting Genitourinary: no dysuria Musculoskeletal: no myalgia and no muscle weakness Integumentary: no rash and no lesions Neurologic: as per Subjective / HPI Psychiatric: no depression and no anxiety Hematologic / Lymphatic: no easy bleeding, no easy bruising and no night sweats Exam (Neuro) Constitutional: well developed and well nourished; no acute distress Eyes: normal visual tracy by confrontation, PERRL and EOM intact bilaterally; no nystagmus Neurologic: Oriented to:: Person, Place and Time Memory: Short Term Intact and Remote Intact Attention: Span Intact and Concentration Intact Speech Fluency: negative Dysarthria or Dysfluency Speech Aphasia: negative Aphasia Fund of Knowledge: Current Events, Past History and Vocabulary Cranial Nerves: Normal II, III, IV, , V, VII, VIII, IX, X, XI and XII Motor Strength: Normal Lower Extremities and Normal Upper Extremities Motor Tone: Normal Lower Extremities and Normal Upper Extremities Muscle Bulk/Involuntary Movements: No Involuntary Movements; negative Muscle Atrophy Sensation: Light Touch Intact, Pain/Temperature Intact and Proprioception Intact; negative Vibration Intact Coordination: Normal and Limited Balance; negative Dysdiadochokinesia, Finger-Nose Abnormal or Heel-Alaniz Abnormal Deep Tendon Reflexes: Rt Triceps: 2+, Lt Triceps: 2+, Rt Biceps: 2+, Lt Biceps: 2+, Rt Brachioradialis: 2+, Lt Brachioradialis: 2+, Rt Patellar: 2+, Lt Patellar: 2+, Rt Ankle: 1+ and Lt Ankle: 1+ Gait: Ataxic Results & Data Vital Signs (Past 12 Hours) Vital Signs Temp Pulse Resp BP Pulse Ox O2 Del Method 06/24/24 07:16 36.3 C L 84 17 149/83 H 93 Room Air 06/24/24 02:13 36.4 C L 75 18 118/74 95 Room Air 06/23/24 22:39 36.7 C 75 18 134/77 95 Room Air Laboratory Results WBC 7.52, hemoglobin 14.0, hematocrit 41.9, platelet count 252, sodium 141, potassium 3.9, BUN 13, creatinine 0.58, glucose 142, calcium 8.8 Diagnostic Findings CTA of the head and neck and brain MRI are as described in the HPI, I independently reviewed these images. Coding Level of Care Code 72156 INT INP/OBS CARE MIN Diagnoses Seizure disorder G40.909 Stroke-like symptoms R29.90 Time Spent (min) 90 Comment Total time includes patient contact, chart review, counseling, note preparation
[2024-06-24] MEDS: LORazepam 2 MG/1 ML VIAL IV ONE (11:39)
--- NOTE | 2024-06-24 12:43 | Hospitalist Progress Note ---
Date of Service June 24, 2024 Assessment & Plan (1) TIA (transient ischemic attack): Plan: MRI negative for acute ischemic event (2) Seizure disorder: Plan: Possible atypical breakthrough seizures (3) Anxiety: (4) Hyperthyroidism: Plan Patient with recurrent episodes of slurred speech and occasional leg weakness. Communication with neurology, reviewed recommendations-continue dual antiplatelet therapy Check carbamazepine level, rule out toxicity versus subtherapeutic levels which may indicate possible breakthrough seizures as the etiology of her recurrent slurred speech. Myasthenia gravis labs pending, continue to monitor for results Therapy notes reviewed, patient able to return home Patient EEG, possible referral for loop recorder Phone conversation with patient's daughter, reviewed plan of care. She anticipates bringing patient home to her house. Daughter aware of anticipated discharge tomorrow. Admission and Anticipated Discharge Date Admission Date: June 20, 2024 Subjective Patient states that her speech this morning is pretty good Physical Exam Physical Exam: Constitutional: Alert HEENT: Mucous membranes moist. Lungs: Clear to auscultation, decreased, no wheezes rales or rhonchi CV: S1-S2, regular Abdomen: Soft, nontender, nondistended Extremities: No significant edema Neuro: Speech seems to be clear during my interaction, no slurring of words, no noted facial droop Psych: Cooperative, normal mood Results & Data Results & Data Vital Signs (Past 12 Hours) Vital Signs Temp Pulse Resp BP Pulse Ox O2 Del Method 06/24/24 11:48 36.6 C 82 145/78 H 95 Room Air 06/24/24 07:16 36.3 C L 84 17 149/83 H 93 Room Air 06/24/24 02:13 36.4 C L 75 18 118/74 95 Room Air Diagnostic Findings Vitamin B12- 732
[2024-06-24 19:46] VITALS: RESP 18
[2024-06-25 07:57] VITALS: O2SAT 94
[2024-06-25 11:27] VITALS: PULSE 71; TEMP 98.4
--- NOTE | 2024-06-25 12:01 | Discharge Summary ---
Discharge Summary Date of Service June 25, 2024 Principal Dx & Hospital Course #1 = Principal Diagnosis (1) Seizure disorder: Possible atypical breakthrough seizures (2) TIA (transient ischemic attack): MRI negative for acute ischemic event (3) Anxiety: (4) Hyperthyroidism: Plan Patient 79-year-old female presented to the emergency room with intermittent issues of slurred speech and occasional leg weakness. She was evaluated emergently as a code stroke. Patient was admitted to the hospital. She was on telemetry monitoring throughout her hospitalization. There was no arrhythmias noted. MRI of the brain showed no evidence of ischemia or acute infarct. Neurology consultation was obtained. Initial thought was that she may be having episodes of hypoperfusion. Myasthenia gravis panel was also sent. During the patient's hospitalization she continued to have some episodes of slurred speech. All imaging was nondiagnostic. At the request of the family a second neurology consultation was obtained with Sandra corrigan. Evaluated by Dr. Fuller. On second consultation raise possibility of atypical breakthrough seizures. Carbamazepine levels pending. It was suggested adding Keppra to her Tegretol and continuing to evaluate her for recurrent symptoms. Patient was seen by therapies. She continued to do well through the hospitalization but again had s ome brief episodes of intermittent slurred speech and occasional leg weakness. On the day of discharge patient was doing well. Vital signs stable. Was ambulating. Had extensive conversation with the patient and the daughter on the time of discharge explaining plan for adding Keppra and plan for outpatient follow-up. Patient and daughter requested outpatient follow-up with Sandra castro this will be coordinated for them. She also follow-up with her PCP. And have ongoing evaluations as to whether the Keppra was helping decrease or eliminate these recurrent episodes. Notes For Next Care Provider Discuss if repeat ZIO monitoring to add any value Medication Changes From Visit Keppra added to medical regimen Pravastatin added, tolerating in hospital Admission HPI Per Admitting Provider 79-year-old female with past medical history significant for multinodal goiter, osteoarthritis of both knees, osteoporosis, neuropathy, epilepsy, GERD generalized anxiety, depression, history of TIA who lives alone at home comes because of strokelike symptoms.Patient states around 6 PM her son-in-law dropped her at home when she was going inside she felt weak in the legs and had some slurred speech and slowly has to lay down on the floor and called her son-in-law and was brought to the hospital. The symptoms of slurred speech lasted for about 20 minutes. Currently back to her baseline. Denies any headache. No dizziness. Vision is okay. No runny nose or sore throat. No cough. Appetite is okay. No difficulty swallowing. No chest pain or shortness of breath. No nausea no abdominal pain. Normal bowel and bladder movements. Currently resting comfortably. Hemodynamically stable. Patient was recently in the hospital with a similar episode and at the time workup was unremarkable and MRI was not done because of severe claustrophobia. Plan for open MRI as outpatient. Patient also seems could not tolerate Lipitor in the past and PCP recommended Crestor which patient wanted to think about. There is appointment with neurology on June 23 . Past medical history. As mentioned above Past surgical history. Relieve inner eye pressure bilaterally. Bilateral cataracts. Repair of elbow fracture. Social history. Lives alone. No smoking. Alcohol rarely. No drug use. Family history. Mother had coronary disease. Uterine cancer. Father had emphysema. Daughter had breast cancer. Admission Exam Per Admitting Provider See H&P Discharge Exam Constitutional: Alert HEENT: Mucous membranes moist. Lungs: Clear to auscultation, decreased, no wheezes rales or rhonchi CV: S1-S2, regular Abdomen: Soft, nontender, nondistended Extremities: No significant edema Neuro: No focal deficits, speech clear, NIHSS=0 Psych: Cooperative, normal mood Updated Medication List Medication Instructions Recorded Confirmed Type turmeric 400 mg capsule 400 mg PO QAM 07/24/19 06/20/24 History calcium carbonate 500 mg-vitamin 1 tab PO BID 04/24/22 06/20/24 History D3 5 mcg (200 unit) tablet (Calcium 500 + D) carbamazepine 400 mg 400 mg PO Q12H 04/24/22 06/20/24 History tablet,extended release,12 hr glucosamine-chondroitin 250 mg-200 1 tab PO BID 04/24/22 06/20/24 History mg tablet (Osteo Bi-Flex) multivitamin with minerals 1 tab PO QDL 04/24/22 06/20/24 History olopatadine 0.1 % eye drops 1 drp OPB DAILY PRN allergies 04/24/22 06/20/24 History vitamin B complex 1 tab PO QDL 04/24/22 06/20/24 History L.acidop,casei,lactis,rham-B.lact,marcelle 1 cap PO QPM 05/17/23 06/20/24 History 625 mg (10 billion cell) capsule (Advanced Probiotic) escitalopram oxalate 10 mg tablet 10 mg PO HS 05/17/23 06/20/24 History methimazole 5 mg tablet 5 mg PO QAM 05/17/23 06/20/24 History aspirin 81 mg tablet,delayed 81 mg PO QAM 09/04/23 06/20/24 History release latanoprost 0.005 % eye drops 1 drp OPR HS 09/04/23 06/20/24 History clopidogrel 75 mg tablet 75 mg PO QAM #20 tabs 06/08/24 06/20/24 Rx levetiracetam 500 mg tablet 500 mg PO BID 30 days #60 tabs 06/25/24 Rx (Keppra) pravastatin 20 mg tablet 20 mg PO DAILY@1700 30 days #30 06/25/24 Rx tabs Hospital Stay Data Consultations 06/20/24 20:51 ED Decision to Admit Stat 06/21/24 08:00 Consult Neurology Routine 06/23/24 12:25 Consult Neurology Routine Diagnostic Imagining Performed 06/20/24 19:14 CT angio head w con Stat CT angio neck with con Stat CT head/brain wo con Stat 06/21/24 16:56 MRI Brain [MR brain wo con] Urgent Reviewed imaging, laboratory and diagnostic studies. Pertinent findings as below. TSH 0.8 Myasthenia gravis panel pending Carbamazepine level pending Hemoglobin A1c 5.2% MRI of the brain, no acute ischemic findings CTA head and neck no large vessel occlusions Pending Results Patient Have Any Pending Studies at Discharge: Yes Discharge Instructions Given to Patient (Per Discharging Provider) Discussed with your PCP and any additional cardiac monitoring Follow-up with neurology to discuss EEG testing Total Time Total Time Spent Total Time Spent (In Minutes): 48
[2024-06-25] MEDS: levETIRAcetam 500 MG TAB PO SCH (12:09)
[2024-06-25 15:57] VITALS: BP 112/73
== END 2024-06-25 15:57 | disposition home or self-care (01) | DRG 69 ==
LOC: ED 19:12 → 2S 23:06 → SUATTDRO 23:06 → 2S 23:57

== ENCOUNTER 2024-06-29 14:24 | Inpatient (IN) ==
--- NOTE | 2024-06-29 15:11 | XRay Report ---
LEFT KNEE 2 VIEWS CLINICAL HISTORY: Left knee injury. FINDINGS: AP and crosstable lateral views of the left knee are compared to study dated 09/04/2023. Th e skeletal structures are osteopenic. No fracture is seen. A left knee arthroplasty is in near anatom ic alignment. No periprosthetic lucency is identified. There has been undersurface remodeling of the patella. There is a small joint effusion. Soft tissue swelling is seen around the knee. A calcified f giovanna is incidentally noted. IMPRESSION: 1. Soft tissue swelling and joint effusion with no acute bony abnormality identified. 2. A left knee arthroplasty is in near anatomic alignment. Electronically signed by: Amado Taylor M.D. 06/29/2024 3:09 PM
--- NOTE | 2024-06-29 15:15 | XRay Report ---
XR chest 1V portable CLINICAL HISTORY: trauma COMPARISON STUDY: Chest radiograph June 20, 2024. FINDINGS: There is no pneumothorax or pleural effusion. There is no consolidation to suggest pneumoni a. A large hiatal hernia with intrathoracic stomach is again noted. Stable cardiomegaly. Upper medias tinal widening with rightward deviation of the trachea is due to a thyroid goiter, as shown on prior chest CT. IMPRESSION: 1. No acute cardiopulmonary findings. No change in appearance of the chest. 2. Large hiatal hernia. ACT 112: Negative or not required by law. Electronically signed by: Tato Epstein M.D. 06/29/2024 3:13 PM
--- NOTE | 2024-06-29 15:15 | XRay Report ---
XR pelvis 1-2V routine CLINICAL HISTORY: Trauma. COMPARISON: Pelvis CT November 08, 2022. FINDINGS: Sacroiliac joints and symphysis pubis are intact. There are no acute fractures within the pelvis or hips. There is mild bilateral hip osteoarthritis. There are no osseous lesions. IMPRESSION: No fractures within the pelvis or hips. ACT 112: Negative or not required by law. Electronically signed by: Tato Epstein M.D. 06/29/2024 3:14 PM
--- NOTE | 2024-06-29 15:16 | XRay Report ---
XR femur RT 2V routine CLINICAL HISTORY: trauma TECHNIQUE: 2 radiographic views of the right femur were obtained. Comparison: Comparison is made to pelvis radiograph 07/10/2024 FINDINGS: There is no evidence of an acute fracture. Degenerative changes are seen in the hip and knee joints. The soft tissues are unremarkable. IMPRESSION: Degenerative changes without evidence of acute bony injury. ACT 112: Negative or not required by law. Electronically signed by: Varinder Meyer M.D. 06/29/2024 3:14 PM
--- NOTE | 2024-06-29 15:28 | CT Scan Report ---
CT head/brain wo con CLINICAL HISTORY: trauma Technique: Contiguous axial CT images of the head were acquired from the base of the skull to the kathie britany without intravenous contrast administration. Images were viewed in brain, subdural and bone [facility]. Automated dose lowering techniques and/or adjustment according to patient size were utilized for this exam. Comparison: Comparison is made to CT chest 06/20/2024 Findings: The ventricles, basal cisterns, and cerebral sulci are normal. There is no acute intracranial hemorrh age or evidence of acute territorial infarction. Neither mass effect, shift of the midline structures , nor abnormal extra-axial fluid collections are shown. Imaged portions of the paranasal sinuses and mastoid air cells are clear. The orbits appear normal. There are no acute fractures of the calvaria or scalp swelling. Impression: No acute intracranial hemorrhage, no evidence of acute territorial infarction or other acute intracra nial disease process. ACT 112: Negative or not required by law. Electronically signed by: Varinder Meyer M.D. 06/29/2024 3:27 PM
[2024-06-29 15:31] LABS: Basophils # (auto) 0.05 K/uL (0.00-0.20); Basophils % (auto) 0.7 %; Eosinophils # (auto) 0.23 K/uL (0.00-0.50); Hematocrit (blood only) 40.9 % (37.0-47.0); Hemoglobin 14.2 g/dl (12.0-16.0); Immature Granulocytes # (auto) 0.02 K/uL (0.01-0.20); Immature Granulocytes % (auto) 0.3 %; Lymphocytes # (auto) 2.33 K/uL (1.20-3.40); Lymphocytes % (auto) 30.5 %; Mean Corpuscular Hemoglobin 32.7 pg (25.0-34.0); Mean Corpuscular Hgb Conc 34.7 g/dL (32.0-36.0); Mean Corpuscular Volume 94.2 fL (80.0-100.0); Mean Platelet Volume 9.3 fL (9.4-12.4); Monocytes # (auto) 0.77 K/uL (0.11-0.59); Monocytes % (auto) 10.1 %; Neutrophils # (auto) 4.25 K/uL (1.40-6.50); Neutrophils % (auto) 55.4 %; Platelet Count 263 K/uL (130-400); RDW Coefficient of Variation 12.5 % (11.5-14.5); RDW Standard Deviation 43.8 fL (36.4-46.3); Red Blood Count 4.34 M/uL (4.20-5.40); White Blood Count 7.65 K/ul (4.8-10.8)
[2024-06-29 15:34] LABS: INR 0.9 (0.9-1.1); Partial Thromboplastin Time 26 Seconds (21-31); Prothrombin Time 10.3 Seconds (9.0-12.0)
[2024-06-29 15:38] LABS: BUN Creatinine Ratio 34.9 (10-20); Creatinine Clr Calc Pharmacy 67.7 ml/min; Est GFR (African American) 100.3 ml/min; Est GFR (Non-African American) 86.5 ml/min; Potassium 3.7 mmol/L (3.5-5.1)
--- NOTE | 2024-06-29 15:43 | CT Scan Report ---
CT OF THE CERVICAL SPINE WITHOUT CONTRAST CLINICAL HISTORY: trauma COMPARISON STUDY: CT of the neck June 20, 2024. TECHNIQUE: Helical axial images of the cervical spine were obtained without IV contrast. Sagittal a nd coronal reconstructions were viewed. Automated exposure control was utilized for the study. A do se lowering technique was utilized adhering to the principles of ALARA. FINDINGS: Alignment of the cervical spine is anatomic. Vertebral body heights are maintained. No acut e cervical spine fracture or subluxation is present. There is no prevertebral edema. Facet joints are intact. Severe multilevel facet arthrosis and moderate degenerative disc disease is again noted. A large thyroid goiter is partially imaged. IMPRESSION: No acute cervical spine fracture or subluxation. ACT 112: Negative or not required by law. Electronically signed by: Tato Epstein M.D. 06/29/2024 3:42 PM
--- NOTE | 2024-06-29 16:00 | Electrocardiogram Report ---
Test Reason : Blood Pressure : */* mmHG Vent. Rate : 90 BPM Atrial Rate : 90 BPM P-R Int : 198 ms QRS Dur : 96 ms QT Int : 360 ms P-R-T Axes : 49 7 31 degrees QTcB Int : 440 ms Poor data quality, interpretation may be adversely affected Normal sinus rhythm Incomplete right bundle branch block Borderline ECG When compared with ECG of 20-Jun-2024 19:37, No significant change was found Confirmed by Howard Sanders ([id number]) on 06/29/2024 4:00:00 PM Referred By: Confirmed By: Howard Sanders
[2024-06-29] MEDS ORDERED: ONDANSETRON INJ 2 MG/ML 2 ML VIAL IV PRN (17:15)
[2024-06-29] MEDS ORDERED: MAGNESIUM HYDROXIDE SUSP 30 ML UDC PO PRN (17:15)
[2024-06-29] MEDS ORDERED: POLYETHYLENE (MIRALAX) 17 GM PACK PO PRN (17:15)
[2024-06-29] MEDS ORDERED: ALUMINUM/MAGNESIUM SUSP 30 ML UDC PO PRN (17:15)
--- NOTE | 2024-06-29 17:21 | History & Physical Report ---
Date of Service June 29, 2024 Assessment & Plan (1) Seizure disorder: (2) Generalized weakness: (3) Hyperthyroidism: (4) Anxiety: (5) Osteoporosis: (6) TIA (transient ischemic attack): Plan Generalized Weakness: S/P Fall: Seizure Disorder: Chronic Takes carbamazepine; continue Most recent caramazepine level Hyperthyroidism: Chronic Takes I spent a total of [] minutes coordinating, documenting, and providing care for this patient excluding time spent in the performance of separately billed services. All of the aforementioned completed while collaborating with the assigned attending physician for a full treatment plan. Please see their addendum for further details. History of Present Illness Chief Complaint: s/p fall/generalized weakness Primary Care Provider: Elvia Rodriguez MD Ms. Kirkland is a 79 year old female that presented to the ED PMH includes: Patient will be admitted for further evaluation and mangaement. Please see A/P for further details. Allergies Allergy/AdvReac Type Severity Reaction Status Date / Time clams Allergy Severe Dyspepsia, Verified 06/20/24 20:44 abdominal pain Home Medications Medication Instructions Recorded Confirmed Type turmeric 400 mg capsule 400 mg PO QAM 07/24/19 06/20/24 History calcium carbonate 500 mg-vitamin 1 tab PO BID 04/24/22 06/20/24 History D3 5 mcg (200 unit) tablet (Calcium 500 + D) carbamazepine 400 mg 400 mg PO Q12H 04/24/22 06/20/24 History tablet,extended release,12 hr glucosamine-chondroitin 250 mg-200 1 tab PO BID 04/24/22 06/20/24 History mg tablet (Osteo Bi-Flex) multivitamin with minerals 1 tab PO QDL 04/24/22 06/20/24 History olopatadine 0.1 % eye drops 1 drp OPB DAILY PRN allergies 04/24/22 06/20/24 History vitamin B complex 1 tab PO QDL 04/24/22 06/20/24 History L.acidop,casei,lactis,rham-B.lact,marcelle 1 cap PO QPM 05/17/23 06/20/24 History 625 mg (10 billion cell) capsule (Advanced Probiotic) escitalopram oxalate 10 mg tablet 10 mg PO HS 05/17/23 06/20/24 History methimazole 5 mg tablet 5 mg PO QAM 05/17/23 06/20/24 History aspirin 81 mg tablet,delayed 81 mg PO QAM 09/04/23 06/20/24 History release latanoprost 0.005 % eye drops 1 drp OPR HS 09/04/23 06/20/24 History clopidogrel 75 mg tablet 75 mg PO QAM #20 tabs 06/08/24 06/20/24 Rx levetiracetam 500 mg tablet 500 mg PO BID 30 days #60 tabs 06/25/24 Rx (Keppra) pravastatin 20 mg tablet 20 mg PO DAILY@1700 30 days #30 06/25/24 Rx tabs Past Med/Surg History Problem List (Updated 06/29/24 @ 17:19 by YARIEL Schaefer) TIA (transient ischemic attack) 04/2022, possible TIA (testing "inconclusive") Generalized weakness Seizure disorder Hx epilepsy, no seizure x several years Anxiety Acute hyperglycemia (Acute) Stroke-like symptoms (Acute) Status post left knee replacement (~06/2023) Encounter for pre-operative examination Hyperthyroidism Taking Methimazole TIA (transient ischemic attack) (Acute) Osteoarthritis of right knee Osteoporosis Medical History Hx of compression fracture of spine 2017, "mid back" > "healed" Osteoarthritis TIA (transient ischemic attack) 04/2022, possible TIA (testing "inconclusive") Multinodular goiter Arthritis Hiatal hernia Diverticular disease Hx of basal cell carcinoma s/p excision Glaucoma B/L Surgical History History of tonsillectomy History of tooth extraction Hx of cataract surgery R/L History of colonoscopy Hx laparoscopic cholecystectomy Laparoscopic Cholecystectomy (08/06/19): Grade 1 view, MAC#3, ETT 7.0, atraumatic Hx of basal cell carcinoma excision History of elbow surgery Right Family History Daughter Breast cancer Social History Smoking Status: Never smoker Second Hand Exposure: No; Do You Dip or Chew Tobacco: No; Hx Alcohol Use: No Hx Substance Use: No Preferred Language: Greenlandic Communication Ability: Effective [place] Required: No Beliefs That Will Affect Care: None marital status: Current Living Situation: Alone Current Living Situation Comment: Lives alone in apartment in residential community in [place] current occupational status: retired How many Children do You have: 1 Feels Safe at Home: Yes Assistive Devices: Cane and Walker Review of Systems Review of Systems: Neuro: (-) Falls, trauma, slurred speech HEENT: (-) ZHOU, dizziness, dysphagia, visual or auditory changes CV: (-) CP, palpitations, swelling Resp: (-) SOB GI: (-) appetite changes, N/V/D, bowel changes : (-) urinary changes Skin: (-) rashes Psych: (-) anxiety, depression Physical Exam Physical Exam: Neuro: AAOx4, PERRLA, no aphagia, memory changes, CNII-XII grossly intact HEENT: head normocephalic, moist mucus membranes CV: S1/S2, (-) M/G/R, (-) edema, cap refill < 3 seconds Resp: Lungs CTA in all tracy. On RA GI: Abdomen S/NT/ND, Ax4 bowel sounds, (-) CVA tenderness Musculoskeletal: 5/5 B/L UE strength, 5/5 B/L LE strength. No gait disturbance Skin: (-) rashes , (-) erythema. Psych: euthymic mood Results & Data Results & Data Vital Signs (Past 12 Hours) Vital Signs Temp Pulse Pulse Resp BP BP Pulse Ox 06/29/24 14:48 97 06/29/24 14:45 87 15 123/75 96 06/29/24 14:45 88 20 96 06/29/24 14:43 87 06/29/24 14:29 36.3 C L 86 17 123/75 95 06/29/24 14:28 36.3 C L 85 17 123/75 98 O2 Del Method O2 Flow Rate 06/29/24 14:48 Room Air 0 06/29/24 14:45 Room Air 06/29/24 14:45 Room Air 06/29/24 14:43 06/29/24 14:29 Room Air 06/29/24 14:28 Room Air Laboratory Results Short CBC 06/29/24 Range/Units 14:48 WBC 7.65 (4.8-10.8) K/ul Hgb 14.2 (12.0-16.0) g/dl Hct 40.9 (37.0-47.0) % Plt Count 263 (130-400) K/uL [facility] 06/29/24 14:48 Sodium 141 Potassium 3.7 Chloride 107 Carbon Dioxide 26 BUN 22 Creatinine 0.63 Glucose 110 H Calcium 9.0 Diagnostic Findings Cervical Spine CT 06/29/24 14:33 CT OF THE CERVICAL SPINE WITHOUT CONTRAST CLINICAL HISTORY: trauma COMPARISON STUDY: CT of the neck June 20, 2024. TECHNIQUE: Helical axial images of the cervical spine were obtained without IV contrast. Sagittal and coronal reconstructions were viewed. Automated exposure control was utilized for the study. A dose lowering technique was utilized adhering to the principles of ALARA. FINDINGS: Alignment of the cervical spine is anatomic. Vertebral body heights are maintained. No acute cervical spine fracture or subluxation is present. There is no prevertebral edema. Facet joints are intact. Severe multilevel facet arthrosis and moderate degenerative disc disease is again noted. A large thyroid goiter is partially imaged. IMPRESSION: No acute cervical spine fracture or subluxation. ACT 112: Negative or not required by law. Electronically signed by: Tato Epstein M.D. 06/29/2024 3:42 PM Chest X-Ray 06/29/24 14:33 XR chest 1V portable CLINICAL HISTORY: trauma COMPARISON STUDY: Chest radiograph June 20, 2024. FINDINGS: There is no pneumothorax or pleural effusion. There is no consolidation to suggest pneumonia. A large hiatal hernia with intrathoracic stomach is again noted. Stable cardiomegaly. Upper mediastinal widening with rightward deviation of the trachea is due to a thyroid goiter, as shown on prior chest CT. IMPRESSION: 1. No acute cardiopulmonary findings. No change in appearance of the chest. 2. Large hiatal hernia. ACT 112: Negative or not required by law. Electronically signed by: Tato Epstein M.D. 06/29/2024 3:13 PM Femur X-Ray 06/29/24 14:33 XR femur RT 2V routine CLINICAL HISTORY: trauma TECHNIQUE: 2 radiographic views of the right femur were obtained. Comparison: Comparison is made to pelvis radiograph 07/10/2024 FINDINGS: There is no evidence of an acute fracture. Degenerative changes are seen in the hip and knee joints. The soft tissues are unremarkable. IMPRESSION: Degenerative changes without evidence of acute bony injury. ACT 112: Negative or not required by law. Electronically signed by: Varinder Meyer M.D. 06/29/2024 3:[address] 06/29/24 14:33 CT head/brain wo con CLINICAL HISTORY: trauma Technique: Contiguous axial CT images of the head were acquired from the base of the skull to the vertex without intravenous contrast administration. Images were viewed in brain, subdural and bone windows. Automated dose lowering techniques and/or adjustment according to patient size were utilized for this exam. Comparison: Comparison is made to CT chest 06/20/2024 Findings: The ventricles, basal cisterns, and cerebral sulci are normal. There is no acute intracranial hemorrhage or evidence of acute territorial infarction. Neither mass effect, shift of the midline structures, nor abnormal extra-axial fluid collections are shown. Imaged portions of the paranasal sinuses and mastoid air cells are clear. The orbits appear normal. There are no acute fractures of the calvaria or scalp swelling. Impression: No acute intracranial hemorrhage, no evidence of acute territorial infarction or other acute intracranial disease process. ACT 112: Negative or not required by law. Electronically signed by: Varinder Meyer M.D. 06/29/2024 3:27 PM Knee X-Ray 06/29/24 14:33 LEFT KNEE 2 VIEWS CLINICAL HISTORY: Left knee injury. FINDINGS: AP and crosstable lateral views of the left knee are compared to study dated 09/04/2023. The skeletal structures are osteopenic. No fracture is seen. A left knee arthroplasty is in near anatomic alignment. No periprosthetic lucency is identified. There has been undersurface remodeling of the patella. There is a small joint effusion. Soft tissue swelling is seen around the knee. A calcified fabella is incidentally noted. IMPRESSION: 1. Soft tissue swelling and joint effusion with no acute bony abnormality identified. 2. A left knee arthroplasty is in near anatomic alignment. Electronically signed by: Amado Taylor M.D. 06/29/2024 3:09 PM Pelvis X-Ray 06/29/24 14:34 XR pelvis 1-2V routine CLINICAL HISTORY: Trauma. COMPARISON: Pelvis CT November 08, 2022. FINDINGS: Sacroiliac joints and symphysis pubis are intact. There are no acute fractures within the pelvis or hips. There is mild bilateral hip osteoarthritis. There are no osseous lesions. IMPRESSION: No fractures within the pelvis or hips. ACT 112: Negative or not required by law. Electronically signed by: Tato Epstein M.D. 06/29/2024 3:14 PM Code Status & VTE Plan Code Status Full Code in the event of cardiac or respiratory arrest VTE Prophylaxis Plan VTE Prophylaxis will be ordered: Yes
--- NOTE | 2024-06-29 18:46 | History & Physical Report ---
Date of Service June 29, 2024 Assessment & Plan (1) Stroke-like symptoms: Plan: Strokelike symptoms DD: Focal Seizures Presented with slurred speech and recurrent falls CT head: showed no acute pathology TSH normal Workup for myasthenia gravis pending Vitamin B12 levels normal Continue aspirin, Plavix, statin Continue carbamazepine, Keppra Seizure precautions Neurochecks Neurology consulted as per patient/family's request Fall, seizure, aspiration precautions PT OT as able Monitor on telemetry Left knee effusion secondary to fall Recurrent falls Unclear etiology PT OT, fall precautions Given history of L TKA, will request Ortho eval Imaging studies showed no signs of acute fractures Seizure disorder Continue home medications Follows with [facility] neurology Considering ambulatory EEG last admission Check Keppra, carbamazepine levels Hypothyroidism Continue methimazole Mood disorder Continue home medications DVT Px: SCDs for now CODE STATUS Full code History of Present Illness Chief Complaint: Stroke like symptoms Primary Care Provider: Elvia Rodriguez MD Patient is a 79-year-old female with history of multinodular goiter, osteoarthritis, osteoporosis, peripheral neuropathy, seizure disorder, GERD, mood disorder, TIA and other medical problems presents with history of strokelike symptoms. History is obtained both from the patient and patient's daughter at bedside. Patient states that she was trying to go to the bathroom today and felt weak in her lower extremities resulting in a fall on the left side resulting in hitting her left knee. Denies any head trauma, loss of consciousness. Patient's daughter also states that she had an episode of slurred speech yesterday which lasted for 2 to 3 hours which spontaneously resolved. She admits to take her medications regularly. She currently denies any significant left knee pain. Denies any history of chest pain, dyspnea, palpitations, dizziness, cough, fever, chills, headache, focal weakness, numbness, change in vision, facial deformity, bowel/bladder incontinence, nausea, vomiting, abdominal pain. Allergies Allergy/AdvReac Type Severity Reaction Status Date / Time clams Allergy Severe Dyspepsia, Verified 06/20/24 20:44 abdominal pain Home Medications Medication Instructions Recorded Confirmed Type turmeric 400 mg capsule 400 mg PO QAM 07/24/19 06/29/24 History calcium carbonate 500 mg-vitamin 1 tab PO BID 04/24/22 06/29/24 History D3 5 mcg (200 unit) tablet (Calcium 500 + D) carbamazepine 400 mg 400 mg PO Q12H 04/24/22 06/29/24 History tablet,extended release,12 hr glucosamine-chondroitin 250 mg-200 1 tab PO BID 04/24/22 06/29/24 History mg tablet (Osteo Bi-Flex) multivitamin with minerals 1 tab PO QDL 04/24/22 06/29/24 History olopatadine 0.1 % eye drops 1 drp OPB DAILY PRN allergies 04/24/22 06/29/24 History vitamin B complex 1 tab PO QDL 04/24/22 06/29/24 History L.acidop,casei,lactis,rham-B.lact,marcelle 1 cap PO QPM 05/17/23 06/29/24 History 625 mg (10 billion cell) capsule (Advanced Probiotic) escitalopram oxalate 10 mg tablet 10 mg PO HS 05/17/23 06/29/24 History methimazole 5 mg tablet 5 mg PO QAM 05/17/23 06/29/24 History aspirin 81 mg tablet,delayed 81 mg PO QAM 09/04/23 06/29/24 History release latanoprost 0.005 % eye drops 1 drp OPR HS 09/04/23 06/29/24 History clopidogrel 75 mg tablet 75 mg PO QAM #20 tabs 06/08/24 06/29/24 Rx pravastatin 20 mg tablet 20 mg PO DAILY@1700 30 days #30 06/25/24 06/29/24 Rx tabs levetiracetam 500 mg tablet 500 mg PO BID 06/29/24 06/29/24 History Past Med/Surg History Problem List TIA (transient ischemic attack) 04/2022, possible TIA (testing "inconclusive") Generalized weakness Seizure disorder Hx epilepsy, no seizure x several years Anxiety Acute hyperglycemia (Acute) Stroke-like symptoms (Acute) Status post left knee replacement (~06/2023) Encounter for pre-operative examination Hyperthyroidism Taking Methimazole TIA (transient ischemic attack) (Acute) Osteoarthritis of right knee Osteoporosis Medical History Hx of compression fracture of spine 2017, "mid back" > "healed" Osteoarthritis Multinodular goiter Arthritis Hiatal hernia Diverticular disease Hx of basal cell carcinoma s/p excision Glaucoma B/L Surgical History History of tonsillectomy History of tooth extraction Hx of cataract surgery R/L History of colonoscopy Hx laparoscopic cholecystectomy Laparoscopic Cholecystectomy (08/06/19): Grade 1 view, MAC#3, ETT 7.0, atraumatic Hx of basal cell carcinoma excision History of elbow surgery Right Family History Daughter Breast cancer Social History Smoking Status: Never smoker Second Hand Exposure: No; Do You Dip or Chew Tobacco: No; Hx Alcohol Use: No Hx Substance Use: No Preferred Language: French Communication Ability: Effective Patch Washer Required: No Beliefs That Will Affect Care: None marital status: Current Living Situation: Alone Current Living Situation Comment: Lives alone in apartment in nursing home community in [facility] current occupational status: retired How many Children do You have: 1 Feels Safe at Home: Yes Assistive Devices: Cane and Walker Review of Systems Review of Systems: All systems reviewed & are unremarkable except as noted in Subjective Physical Exam Physical Exam: Physical Exam: Vitals signs as noted above General Appearance:Moderately built and nourished, no apparent distress Head: normocephalic, Atraumatic Eyes: normal inspection, EOMI Neck: supple, Trachea midline Respiratory/Chest: Normal breath sounds, CTA, No accessory muscle use Cardiovascular: S1, S2, No murmur Abdomen/GI:Soft, Non tender, Bowel sounds present Extremities/Musculoskeletal:normal inspection, 1+edema, L knee contusion Spine: Kyphosis Neurologic/Psych:AAOX3, grossly no focal neurological deficits Skin: normal color, warm Results & Data Results & Data Vital Signs (Past 12 Hours) Vital Signs Temp Pulse Pulse Resp BP BP Pulse Ox 06/29/24 17:29 97 H 18 134/82 97 06/29/24 14:48 97 06/29/24 14:45 87 15 123/75 96 06/29/24 14:45 88 20 96 06/29/24 14:43 87 06/29/24 14:29 36.3 C L 86 17 123/75 95 06/29/24 14:28 36.3 C L 85 17 123/75 98 O2 Del Method O2 Flow Rate 06/29/24 17:29 Room Air 06/29/24 14:48 Room Air 0 06/29/24 14:45 Room Air 06/29/24 14:45 Room Air 06/29/24 14:43 06/29/24 14:29 Room Air 06/29/24 14:28 Room Air Laboratory Results Short CBC 06/29/24 Range/Units 14:48 WBC 7.65 (4.8-10.8) K/ul Hgb 14.2 (12.0-16.0) g/dl Hct 40.9 (37.0-47.0) % Plt Count 263 (130-400) K/uL BMP 06/29/24 14:48 Sodium 141 Potassium 3.7 Chloride 107 Carbon Dioxide 26 BUN 22 Creatinine 0.63 Glucose 110 H Calcium 9.0 Diagnostic Findings --CT Head:No acute intracranial hemorrhage, no evidence of acute territorial infarction or other acute intracranial disease process. --CT Neck:No acute cervical spine fracture or subluxation. --L Knee X ray: Soft tissue swelling and joint effusion with no acute bony abnormality identified. 2. A left knee arthroplasty is in near anatomic alignment. --CXR:No acute cardiopulmonary findings. No change in appearance of the chest. 2. Large hiatal hernia. ECG Additional Comments: --EKG: Normal sinus rhythm, incomplete right bundle branch block, QTcB 440 Code Status & VTE Plan VTE Prophylaxis Plan VTE Prophylaxis will be ordered: Yes
--- NOTE | 2024-06-29 19:01 | Emergency Department Note ---
History of Present Illness General Chief complaint: Trauma Stated complaint: FALL, L KNEE PAIN Time Seen by Provider: 06/29/24 14:31 Source: patient and family (Daughter at bedside) History of Present Illness Provider complaint: Trauma Maximum Pain Intensity: 0 79-year-old female presents emergency department with follow-up. Patient was using her walker when she got very weak and fell into a glass table. Patient is currently reporting pain in her right hip and left knee. No headache chest pain abdominal pain or neck pain. Home Medications Medication Instructions Recorded Confirmed Type turmeric 400 mg capsule 400 mg PO QAM 07/24/19 06/29/24 History calcium carbonate 500 mg-vitamin 1 tab PO BID 04/24/22 06/29/24 History D3 5 mcg (200 unit) tablet (Calcium 500 + D) carbamazepine 400 mg 400 mg PO Q12H 04/24/22 06/29/24 History tablet,extended release,12 hr glucosamine-chondroitin 250 mg-200 1 tab PO BID 04/24/22 06/29/24 History mg tablet (Osteo Bi-Flex) multivitamin with minerals 1 tab PO QDL 04/24/22 06/29/24 History olopatadine 0.1 % eye drops 1 drp OPB DAILY PRN allergies 04/24/22 06/29/24 History vitamin B complex 1 tab PO QDL 04/24/22 06/29/24 History L.acidop,casei,lactis,rham-B.lact,marcelle 1 cap PO QPM 05/17/23 06/29/24 History 625 mg (10 billion cell) capsule (Advanced Probiotic) escitalopram oxalate 10 mg tablet 10 mg PO HS 05/17/23 06/29/24 History methimazole 5 mg tablet 5 mg PO QAM 05/17/23 06/29/24 History aspirin 81 mg tablet,delayed 81 mg PO QAM 09/04/23 06/29/24 History release latanoprost 0.005 % eye drops 1 drp OPR HS 09/04/23 06/29/24 History clopidogrel 75 mg tablet 75 mg PO QAM #20 tabs 06/08/24 06/29/24 Rx pravastatin 20 mg tablet 20 mg PO DAILY@1700 30 days #30 06/25/24 06/29/24 Rx tabs levetiracetam 500 mg tablet 500 mg PO BID 06/29/24 06/29/24 History Allergies Allergy/AdvReac Type Severity Reaction Status Date / Time clams Allergy Severe Dyspepsia, Verified 06/20/24 20:44 abdominal pain Past Med/Surg History Problem List (Updated 06/29/24 @ 19:08 by Pieter Gupta MD) Fall (Acute) Syncope (Acute) TIA (transient ischemic attack) 04/2022, possible TIA (testing "inconclusive") Generalized weakness Seizure disorder Hx epilepsy, no seizure x several years Anxiety Acute hyperglycemia (Acute) Stroke-like symptoms (Acute) Status post left knee replacement (~06/2023) Encounter for pre-operative examination Hyperthyroidism Taking Methimazole TIA (transient ischemic attack) (Acute) Osteoarthritis of right knee Osteoporosis Medical History Hx of compression fracture of spine 2017, "mid back" > "healed" Osteoarthritis Multinodular goiter Arthritis Hiatal hernia Diverticular disease Hx of basal cell carcinoma s/p excision Glaucoma B/L Surgical History History of tonsillectomy History of tooth extraction Hx of cataract surgery R/L History of colonoscopy Hx laparoscopic cholecystectomy Laparoscopic Cholecystectomy (08/06/19): Grade 1 view, MAC#3, ETT 7.0, atraumatic Hx of basal cell carcinoma excision History of elbow surgery Right Family History Daughter Breast cancer Social History Smoking Status: Never smoker Second Hand Exposure: No; Do You Dip or Chew Tobacco: No; Hx Alcohol Use: No Hx Substance Use: No Preferred Language: [place] Citizen Communication Ability: Effective Human Resources Benefits Administrator Required: No Beliefs That Will Affect Care: None marital status: Current Living Situation: Alone Current Living Situation Comment: Lives alone in apartment in correction community in [place] current occupational status: retired How many Children do You have: 1 Feels Safe at Home: Yes Assistive Devices: Cane and Walker Physical Exam Vital Signs Vital Signs - 24 hr 06/29/24 14:28 06/29/24 14:29 06/29/24 14:43 Temperature 36.3 C L 36.3 C L Temperature Source Oral Pulse Rate 85 86 87 Pulse Rate [Apical] Respiratory Rate 17 17 Respiratory Effort / Characteristics Respiratory Depth Respiratory Pattern Blood Pressure 123/75 123/75 Blood Pressure [Right Arm] Blood Pressure Mean 91 Blood Pressure Mean [Right Arm] Blood Pressure Position [Right Arm] Pulse Oximetry 98 95 Oxygen Delivery Method Room Air Room Air Oxygen Flow Rate Sepsis Recent Fever Within 48 Hours No Sepsis New/Unexplained Change in Mental Status No Sepsis Action Taken by Nursing No Action Required Oxygen Flow Rate - Titration Pulse Oximetry Post Tiitration 06/29/24 14:45 06/29/24 14:45 06/29/24 14:48 Temperature Temperature Source Pulse Rate 88 Pulse Rate [Apical] 87 Respiratory Rate 20 15 Respiratory Effort / Characteristics Respiratory Depth Respiratory Pattern Blood Pressure Blood Pressure [Right Arm] 123/75 Blood Pressure Mean Blood Pressure Mean [Right Arm] 91 Blood Pressure Position [Right Arm] Semi-fowlers Pulse Oximetry 96 96 97 Oxygen Delivery Method Room Air Room Air Room Air Oxygen Flow Rate 0 Sepsis Recent Fever Within 48 Hours Sepsis New/Unexplained Change in Mental Status Sepsis Action Taken by Nursing Oxygen Flow Rate - Titration 0 Pulse Oximetry Post Tiitration 100 06/29/24 17:29 Temperature Temperature Source Pulse Rate Pulse Rate [Apical] 97 H Respiratory Rate 18 Respiratory Effort / Characteristics Non-Labored Respiratory Depth Normal Respiratory Pattern Regular Blood Pressure Blood Pressure [Right Arm] 134/82 Blood Pressure Mean Blood Pressure Mean [Right Arm] 99 Blood Pressure Position [Right Arm] Pulse Oximetry 97 Oxygen Delivery Method Room Air Oxygen Flow Rate Sepsis Recent Fever Within 48 Hours Sepsis New/Unexplained Change in Mental Status Sepsis Action Taken by Nursing Oxygen Flow Rate - Titration Pulse Oximetry Post Tiitration Physical Exam HENT: Exam performed. -Head: Normocephalic and atraumatic. -Right Ear: External ear normal. No mastoid erythema -Left Ear: External ear normal. No mastoid erythema -Mouth/Throat: The oropharynx is clear and moist. No trismus in the jaw. No dental abscesses or uvula swelling. No oropharyngeal exudate or tonsillar abscesses. EYES: Conjunctivae and EOM are normal. Pupils are equal, round, and reactive to light. Right eye exhibits no discharge. Left eye exhibits no discharge. No scleral icterus. NECK: Normal range of motion. Neck supple. No JVD present. No spinous process tenderness present. CV: Normal rate, regular rhythm, normal heart sounds and intact distal pulses. There is no peripheral edema. Palpable radial pulses bue. PULM/CHEST: Effort normal and breath sounds normal. No respiratory distress. No stridor. She has no wheezes. She has no rales. ABD: The abdomen is soft.There is no tenderness. There is no rebound, no guarding MUSC/SKEL: Pelvis stable. Pain on palpation of the right hip. Bruising over the right hip and femur. Pain on palpation of left knee. NEURO: Motor and sensation grossly intact. Course Course 1431: The patient was evaluated in room C3. A complete history and physical exam was performed Cardiac monitoring: An order was placed for continuous cardiac monitoring. The monitor shows a rate of 90 with sinus rhythm interpreted by me Trauma alert paged per nursing protocols. 1655: Vital signs stable. Labs and imaging are unremarkable, no acute traumatic injury. [facility] Time Critical Care Time: Yes Total Critical Care Time: 37 I have personally spent greater than 37 minutes of critical care time in the direct management of this patient. This includes bedside care, interpretation of diagnostic studies, and testing, discussion with consultants, patient, and family members, and other required patient management activities. This 37 minutes is in excess of all separately billable procedures. Medical Decision Making Medical Records Attestation: I reviewed the patient's medical records. External medical records reviewed. Patient was admitted from June 20 to June 25, 2024. Patient was admitted for possible TIA versus breakthrough seizures. MRIs were negative. Laboratory Data Attestation: I reviewed the patient's lab results. 06/29/24 14:48 06/29/24 14:48 Lab Results 06/29/24 Range/Units 14:48 WBC 7.65 (4.8-10.8) K/ul RBC 4.34 (4.20-5.40) M/uL Hgb 14.2 (12.0-16.0) g/dl Hct 40.9 (37.0-47.0) % MCV 94.2 (80.0-100.0) fL MCH 32.7 (25.0-34.0) pg MCHC 34.7 (32.0-36.0) g/dL RDW Std Deviation 43.8 (36.4-46.3) fL RDW Coeff of Bhavesh 12.5 (11.5-14.5) % Plt Count 263 (130-400) K/uL MPV 9.3 L (9.4-12.4) fL Immature Gran % (Auto) 0.3 % Neut % (Auto) 55.4 % Lymph % (Auto) 30.5 % Mccone % (Auto) 10.1 % Eos % (Auto) 3.0 % Baso % (Auto) 0.7 % Neut # (Auto) 4.25 (1.40-6.50) K/uL Lymph # (Auto) 2.33 (1.20-3.40) K/uL Mccone # (Auto) 0.77 H (0.11-0.59) K/uL Eos # (Auto) 0.23 (0.00-0.50) K/uL Baso # (Auto) 0.05 (0.00-0.20) K/uL Immature Gran # (Auto) 0.02 (0.01-0.20) K/uL PT 10.3 (9.0-12.0) Seconds INR 0.9 (0.9-1.1) APTT 26 (21-31) Seconds PTT Ratio 1.0 Sodium 141 (136-145) mmol/L Potassium 3.7 (3.5-5.1) mmol/L Chloride 107 (98-107) mmol/L Carbon Dioxide 26 (21-32) mmol/L Anion Gap 8 (3-11) BUN 22 (6-23) mg/dl Creatinine 0.63 (0.6-1.2) mg/dl Est Cr Clr Drug Dosing 67.7 ml/min Est GFR ( Amer) 100.3 ml/min Est GFR (Non-Af Amer) 86.5 ml/min BUN/Creatinine Ratio 34.9 H (10-20) Glucose 110 H (70-99(Fasting)) mg/dl Calcium 9.0 (8.6-10.3) mg/dl Magnesium 2.0 (1.7-2.4) mg/dl Imaging Data Attestation: I personally reviewed and interpreted this imaging study as follows: My Impression: Chest x-ray: No significant change from the chest x-ray done on June 20 2024 Radiologist's Impression: Cervical Spine CT 06/29/24 14:33 CT OF THE CERVICAL SPINE WITHOUT CONTRAST CLINICAL HISTORY: trauma COMPARISON STUDY: CT of the neck June 20, 2024. TECHNIQUE: Helical axial images of the cervical spine were obtained without IV contrast. Sagittal and coronal reconstructions were viewed. Automated exposure control was utilized for the study. A dose lowering technique was utilized adhering to the principles of ALARA. FINDINGS: Alignment of the cervical spine is anatomic. Vertebral body heights are maintained. No acute cervical spine fracture or subluxation is present. There is no prevertebral edema. Facet joints are intact. Severe multilevel facet arthrosis and moderate degenerative disc disease is again noted. A large thyroid goiter is partially imaged. IMPRESSION: No acute cervical spine fracture or subluxation. ACT 112: Negative or not required by law. Electronically signed by: Tato Epstein M.D. 06/29/2024 3:42 PM Chest X-Ray 06/29/24 14:33 XR chest 1V portable CLINICAL HISTORY: trauma COMPARISON STUDY: Chest radiograph June 20, 2024. FINDINGS: There is no pneumothorax or pleural effusion. There is no consolidation to suggest pneumonia. A large hiatal hernia with intrathoracic stomach is again noted. Stable cardiomegaly. Upper mediastinal widening with rightward deviation of the trachea is due to a thyroid goiter, as shown on prior chest CT. IMPRESSION: 1. No acute cardiopulmonary findings. No change in appearance of the chest. 2. Large hiatal hernia. ACT 112: Negative or not required by law. Electronically signed by: Tato Epstein M.D. 06/29/2024 3:13 PM Femur X-Ray 06/29/24 14:33 XR femur RT 2V routine CLINICAL HISTORY: trauma TECHNIQUE: 2 radiographic views of the right femur were obtained. Comparison: Comparison is made to pelvis radiograph 07/10/2024 FINDINGS: There is no evidence of an acute fracture. Degenerative changes are seen in the hip and knee joints. The soft tissues are unremarkable. IMPRESSION: Degenerative changes without evidence of acute bony injury. ACT 112: Negative or not required by law. Electronically signed by: Varinder Meyer M.D. 06/29/2024 3:[address] 06/29/24 14:33 CT head/brain wo con CLINICAL HISTORY: trauma Technique: Contiguous axial CT images of the head were acquired from the base of the skull to the vertex without intravenous contrast administration. Images were viewed in brain, subdural and bone windows. Automated dose lowering techniques and/or adjustment according to patient size were utilized for this exam. Comparison: Comparison is made to CT chest 06/20/2024 Findings: The ventricles, basal cisterns, and cerebral sulci are normal. There is no acute intracranial hemorrhage or evidence of acute territorial infarction. Neither mass effect, shift of the midline structures, nor abnormal extra-axial fluid collections are shown. Imaged portions of the paranasal sinuses and mastoid air cells are clear. The orbits appear normal. There are no acute fractures of the calvaria or scalp swelling. Impression: No acute intracranial hemorrhage, no evidence of acute territorial infarction or other acute intracranial disease process. ACT 112: Negative or not required by law. Electronically signed by: Varinder Meyer M.D. 06/29/2024 3:27 PM Knee X-Ray 06/29/24 14:33 LEFT KNEE 2 VIEWS CLINICAL HISTORY: Left knee injury. FINDINGS: AP and crosstable lateral views of the left knee are compared to study dated 09/04/2023. The skeletal structures are osteopenic. No fracture is seen. A left knee arthroplasty is in near anatomic alignment. No periprosthetic lucency is identified. There has been undersurface remodeling of the patella. There is a small joint effusion. Soft tissue swelling is seen around the knee. A calcified fabella is incidentally noted. IMPRESSION: 1. Soft tissue swelling and joint effusion with no acute bony abnormality identified. 2. A left knee arthroplasty is in near anatomic alignment. Electronically signed by: Amado Taylor M.D. 06/29/2024 3:09 PM Pelvis X-Ray 06/29/24 14:34 XR pelvis 1-2V routine CLINICAL HISTORY: Trauma. COMPARISON: Pelvis CT November 08, 2022. FINDINGS: Sacroiliac joints and symphysis pubis are intact. There are no acute fractures within the pelvis or hips. There is mild bilateral hip osteoarthritis. There are no osseous lesions. IMPRESSION: No fractures within the pelvis or hips. ACT 112: Negative or not required by law. Electronically signed by: Tato Epstein M.D. 06/29/2024 3:14 PM ECG Data Attestation: I personally reviewed and interpreted this ECG as follows: Rate (beats per minute): 90 Rhythm: + normal sinus ECG Intervals/blocks: + Right Bundle branch block, + Normal OR and + Normal QT-c ECG ST segments: + Normal ST segments [facility] Narrative 1431: The patient was evaluated in room C3. A complete history and physical exam was performed Cardiac monitoring: An order was placed for continuous cardiac monitoring. The monitor shows a rate of 90 with sinus rhythm interpreted by ky Trauma alert paged per nursing protocols. 1655: Vital signs stable. Labs and imaging are unremarkable, no acute traumatic injury. [facility] Impression & Plan Syncope, Fall Discharge Plan Visit Data Chief Complaint: Trauma Stated Complaint: FALL, L KNEE PAIN ED Provider: Pieter Gupta Discharge Problem: Syncope, Fall Patient Disposition: Admitted As Inpatient Discharge Instructions Interventions: ED Discharge Assessment Last Done: 06/29/24 18:37 Forms Stand Alone Forms: [facility] Prescriptions Prescriptions: No Action turmeric 400 mg Capsule 400 mg PO QAM methimazole 5 mg Tablet 5 mg PO QAM escitalopram oxalate 10 mg Tablet 10 mg PO HS Advanced Probiotic 625 mg (10 billion cell) capsule 1 cap PO QPM latanoprost 0.005 % drops 1 drp OPR HS aspirin 81 mg tablet,delayed release (DR/EC) 81 mg PO QAM carbamazepine 400 mg tablet extended release 12 hr 400 mg PO Q12H olopatadine 0.1 % Drops 1 drp OPB DAILY PRN (Reason: allergies) vitamin B complex Tablet 1 tab PO QDL multivitamin with minerals Tablet 1 tab PO QDL glucosamine-chondroitin [Osteo Bi-Flex] 250-200 mg Tablet 1 tab PO BID calcium carbonate-vitamin D3 [Calcium 500 + D] 500 mg-5 mcg (200 unit) Tablet 1 tab PO BID clopidogrel 75 mg Tablet 75 mg PO QAM Qty: 20 0RF pravastatin 20 mg Tablet 20 mg PO DAILY@1700 30 Days Qty: 30 0RF levetiracetam 500 mg tablet 500 mg PO BID Referrals Referrals: Elvia Rodriguez MD [Primary Care Provider] - Discharge Problem: Syncope Qualifiers: Syncope type: unspecified Qualified Code(s): R55 - Syncope and collapse Fall Qualifiers: Encounter type: initial encounter Qualified Code(s): W19.XXXA - Unspecified fall, initial encounter
[2024-06-29] MEDS ORDERED: NON-FORMULARY MEDICATION (Olopatadine 0.1 % Drops) OPB PRN (19:23)
[2024-06-29] MEDS: levETIRAcetam 500 MG TAB PO SCH (21:14)
[2024-06-29] MEDS: ESCITALOPRAM OXALATE 10 MG TAB PO SCH (21:14)
[2024-06-29] MEDS: LATANOPROST 0.005% OP SOLN 2.5 ML BTL OPR SCH (21:15)
[2024-06-29] MEDS: carBAMazepine XR 200 MG TABCR PO SCH (21:15)
--- OUTSIDE RECORDS SUMMARY | 2024-06-29 22:42 | External Medical Summary | Continuity of Care Document ---
Author Name Unknown Organization [facility] [address] Address [address] [place], [place] [id number] [id number] Date(s): 06/20/24 - 06/20/24 [facility] [address] [place], [place] [id number] Discharge Disposition: Home or Self Care Attending Physician: MD Carlene, Bandar Roblero Referring Physician: DO Smith Ryan M
[2024-06-30 06:35] LABS: Hematocrit (blood only) 36.7 % (37.0-47.0); Hemoglobin 12.5 g/dl (12.0-16.0); Mean Corpuscular Hgb Conc 34.1 g/dL (32.0-36.0); Mean Corpuscular Volume 93.9 fL (80.0-100.0); Mean Platelet Volume 9.2 fL (9.4-12.4); Platelet Count 244 K/uL (130-400); RDW Coefficient of Variation 12.9 % (11.5-14.5); RDW Standard Deviation 44.4 fL (36.4-46.3); Red Blood Count 3.91 M/uL (4.20-5.40); White Blood Count 7.13 K/ul (4.8-10.8)
[2024-06-30 06:53] LABS: BUN Creatinine Ratio 31.6 (10-20); Calcium 8.2 mg/dl (8.6-10.3); Creatinine Clr Calc Pharmacy 74.9 ml/min; Est GFR (African American) 103.6 ml/min; Est GFR (Non-African American) 89.4 ml/min; Potassium 4.1 mmol/L (3.5-5.1)
[2024-06-30] MEDS: ASPIRIN 81 MG ECTAB PO SCH (08:23)
[2024-06-30] MEDS: CLOPIDOGREL BISULFATE 75 MG TAB PO SCH (08:23)
[2024-06-30] MEDS: methIMAzole 5 MG TABLET PO SCH (08:23)
[2024-06-30] MEDS: CALCIUM 600MG + VIT D 400 IU TAB PO SCH (08:24)
--- NOTE | 2024-06-30 09:59 | Neurology Consultation ---
Date of Consultation June 30, 2024 Assessment & Plan (1) Fall: History of Present Illness Attending Physician: Pita Arciniega MD History of Present Illness pt here after falling. pt was seen just last week by neurology when admitted as inpt. pt feels her leg just gave out. she is now feeling almost back to herself. no seizure like event. CT head negative. she had extensive work up last week with negative mri etc. this morning feeling better. admission HPI: Patient is a 79-year-old female with history of multinodular goiter, osteoarthritis, osteoporosis, peripheral neuropathy, seizure disorder, GERD, mood disorder, TIA and other medical problems presents with history of strokelike symptoms. History is obtained both from the patient and patient's daughter at bedside. Patient states that she was trying to go to the bathroom today and felt weak in her lower extremities resulting in a fall on the left side resulting in hitting her left knee. Denies any head trauma, loss of co nsciousness. Patient's daughter also states that she had an episode of slurred speech yesterday which lasted for 2 to 3 hours which spontaneously resolved. She admits to take her medications regularly. She currently denies any significant left knee pain. Denies any history of chest pain, dyspnea, palpitations, dizziness, cough, fever, chills, headache, focal weakness, numbness, change in vision, facial deformity, bowel/bladder incontinence, nausea, vomiting, abdominal pain. Allergies Allergy/AdvReac Type Severity Reaction Status Date / Time clams Allergy Severe Dyspepsia, Verified 06/20/24 20:44 abdominal pain Home Medications Medication Instructions Recorded Confirmed Type turmeric 400 mg capsule 400 mg PO QAM 07/24/19 06/29/24 History calcium carbonate 500 mg-vitamin 1 tab PO BID 04/24/22 06/29/24 History D3 5 mcg (200 unit) tablet (Calcium 500 + D) carbamazepine 400 mg 400 mg PO Q12H 04/24/22 06/29/24 History tablet,extended release,12 hr glucosamine-chondroitin 250 mg-200 1 tab PO BID 04/24/22 06/29/24 History mg tablet (Osteo Bi-Flex) multivitamin with minerals 1 tab PO QDL 04/24/22 06/29/24 History olopatadine 0.1 % eye drops 1 drp OPB DAILY PRN allergies 04/24/22 06/29/24 History vitamin B complex 1 tab PO QDL 04/24/22 06/29/24 History L.acidop,casei,lactis,rham-B.lact,marcelle 1 cap PO QPM 05/17/23 06/29/24 History 625 mg (10 billion cell) capsule (Advanced Probiotic) escitalopram oxalate 10 mg tablet 10 mg PO HS 05/17/23 06/29/24 History methimazole 5 mg tablet 5 mg PO QAM 05/17/23 06/29/24 History aspirin 81 mg tablet,delayed 81 mg PO QAM 09/04/23 06/29/24 History release latanoprost 0.005 % eye drops 1 drp OPR HS 09/04/23 06/29/24 History clopidogrel 75 mg tablet 75 mg PO QAM #20 tabs 06/08/24 06/29/24 Rx pravastatin 20 mg tablet 20 mg PO DAILY@1700 30 days #30 06/25/24 06/29/24 Rx tabs levetiracetam 500 mg tablet 500 mg PO BID 06/29/24 06/29/24 History Patient History Medical History Hx of compression fracture of spine 2017, "mid back" > "healed" Osteoarthritis Multinodular goiter Arthritis Hiatal hernia Diverticular disease Hx of basal cell carcinoma s/p excision Glaucoma B/L Surgical History History of tonsillectomy History of tooth extraction Hx of cataract surgery R/L History of colonoscopy Hx laparoscopic cholecystectomy Laparoscopic Cholecystectomy (08/06/19): Grade 1 view, MAC#3, ETT 7.0, atraumatic Hx of basal cell carcinoma excision History of elbow surgery Right Family History Daughter Breast cancer Social History Smoking Status: Never smoker Second Hand Exposure: No; Do You Dip or Chew Tobacco: No; Tobacco Cessation Education Requested by Patient: No Hx Alcohol Use: Yes Alcohol type: wine Hx Substance Use: No Preferred Language: Bulgarian Communication Ability: Effective 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 Beliefs That Will Affect Care: None marital status: Current Living Situation: Alone and Personal Care Facility Current Living Situation Comment: indep living current occupational status: retired How many Children do You have: 1 Other Information That Helps Us Care for You: No Feels Safe at Home: Yes Safety Concerns: Feels Safe At This Time Assistive Devices: Walker Exam (Neuro) Physical Exam: HEENT: normocephalic grossly Neuro: Mental: AOx4, fluent speech, normal comprehension, no apraxia, no L/R confusion, no neglect CN: PERRL, Full EOM, symmetric face, midline T/U/P, Motor: No abnormal movements, normal tone, 5/5 t/o bilaterally Sens: intact to touch b/l grossly Coord: intact DTR: 2+ sym b/l Gait:deferred Impression: 79 yo female with s/p fall from leg giving out without clear etiology. 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 perhaps MSK related mechanical fall. Not clear about report of slurred speech. I do not feel she needs re- work up again as she had extensive work up just last week. does not appears to be seizure event. Anxiety maybe also contributing and deconditioning. Recommendations: continue supportive care and rehab for walking. continue same AEDs as now. she wants to f/u with [facility] neurology now as her [facility] neurologist retired. as recommended, she can f/u with our clininc as routine withe one of our APPs as Dr. Fuller recommended last week. not much to add at this point. call again if new question. Chart reviewed I have spent more than 50% educating patient about potential diagnosis and neurological evaluation and coordinating care with patient's treatment team. Total time spent (including chart review and coordination of care): 60 min (this includes chart review). Results & Data Vital Signs (Past 12 Hours) Vital Signs Temp Pulse Pulse Resp BP Pulse Ox O2 Del Method 06/30/24 07:33 36.6 C 74 18 103/66 95 Room Air 06/30/24 07:15 Room Air 06/30/24 07:00 75 06/30/24 04:01 36.3 C L 77 18 98/65 L 94 Room Air 06/30/24 00:24 36.6 C 86 18 116/67 94 Room Air PG Care Time/CCT Total # of Minutes Spent Total Time Spent with Patient: Total time spent is greater than 50% in coordination of care (as documented) at patient's floor/unit and/or counseling patient: Coding Level of Care Code 89257 IN/OBS CONSULT LVL 4,60M Diagnoses Fall W19.XXXA Encounter type: initial encounter (1) Fall Encounter type: initial encounter Qualified Code(s): W19.XXXA - Unspecified fall, initial encounter
--- NOTE | 2024-06-30 13:27 | Orthopedic Consultation ---
Date of Service June 30, 2024 Assessment & Plan (1) Prepatellar bursitis, left knee: Seen and examined by Dr. Chandler. She has a traumatic prepatella bursitis from her fall. No fracture on xray. She can weight bear as tolerated. No restrictions other than avoiding kneeling on the knee until symptoms resolve. She can follow up as needed. History of Present Illness Reason for Consultation: . Requesting Physician: . Attending Physician: Pita Arciniega MD . Malinda is a 79 year old patient 1 year s/p left tka done by Dr. Alfonso. She fell yesterday and injured her left knee. She was admitted to the hospitalist service for stroke like symptoms. Most of her pain is anteriorly. Allergies Allergy/AdvReac Type Severity Reaction Status Date / Time clams Allergy Severe Dyspepsia, Verified 06/20/24 20:44 abdominal pain Home Medications Medication Instructions Recorded Confirmed Type turmeric 400 mg capsule 400 mg PO QAM 07/24/19 06/29/24 History calcium carbonate 500 mg-vitamin 1 tab PO BID 04/24/22 06/29/24 History D3 5 mcg (200 unit) tablet (Calcium 500 + D) carbamazepine 400 mg 400 mg PO Q12H 04/24/22 06/29/24 History tablet,extended release,12 hr glucosamine-chondroitin 250 mg-200 1 tab PO BID 04/24/22 06/29/24 History mg tablet (Osteo Bi-Flex) multivitamin with minerals 1 tab PO QDL 04/24/22 06/29/24 History olopatadine 0.1 % eye drops 1 drp OPB DAILY PRN allergies 04/24/22 06/29/24 History vitamin B complex 1 tab PO QDL 04/24/22 06/29/24 History L.acidop,casei,lactis,rham-B.lact,marcelle 1 cap PO QPM 05/17/23 06/29/24 History 625 mg (10 billion cell) capsule (Advanced Probiotic) escitalopram oxalate 10 mg tablet 10 mg PO HS 05/17/23 06/29/24 History methimazole 5 mg tablet 5 mg PO QAM 05/17/23 06/29/24 History aspirin 81 mg tablet,delayed 81 mg PO QAM 09/04/23 06/29/24 History release latanoprost 0.005 % eye drops 1 drp OPR HS 09/04/23 06/29/24 History clopidogrel 75 mg tablet 75 mg PO QAM #20 tabs 06/08/24 06/29/24 Rx pravastatin 20 mg tablet 20 mg PO DAILY@1700 30 days #30 06/25/24 06/29/24 Rx tabs levetiracetam 500 mg tablet 500 mg PO BID 06/29/24 06/29/24 History Past Med/Surg History Problem List (Updated 06/30/24 @ 13:26 by Flako Braun PA-C) Prepatellar bursitis, left knee Fall (Acute) Syncope (Acute) TIA (transient ischemic attack) 04/2022, possible TIA (testing "inconclusive") Generalized weakness Seizure disorder Hx epilepsy, no seizure x several years Anxiety Acute hyperglycemia (Acute) Stroke-like symptoms (Acute) Status post left knee replacement (~06/2023) Encounter for pre-operative examination Hyperthyroidism Taking Methimazole TIA (transient ischemic attack) (Acute) Osteoarthritis of right knee Osteoporosis Medical History Hx of compression fracture of spine 2017, "mid back" > "healed" Osteoarthritis Multinodular goiter Arthritis Hiatal hernia Diverticular disease Hx of basal cell carcinoma s/p excision Glaucoma B/L Surgical History History of tonsillectomy History of tooth extraction Hx of cataract surgery R/L History of colonoscopy Hx laparoscopic cholecystectomy Laparoscopic Cholecystectomy (08/06/19): Grade 1 view, MAC#3, ETT 7.0, atraumatic Hx of basal cell carcinoma excision History of elbow surgery Right Family History Daughter Breast cancer Social History Smoking Status: Never smoker Second Hand Exposure: No; Do You Dip or Chew Tobacco: No; Tobacco Cessation Education Requested by Patient: No Hx Alcohol Use: Yes Alcohol type: wine Hx Substance Use: No Preferred Language: Kyrgyz Communication Ability: Effective Herpetology Teacher Required: No Beliefs That Will Affect Care: None marital status: Current Living Situation: Alone and Personal Care Facility Current Living Situation Comment: indep living current occupational status: retired How many Children do You have: 1 Other Information That Helps Us Care for You: No Feels Safe at Home: Yes Safety Concerns: Feels Safe At This Time Assistive Devices: Cane and Walker Review of Systems All systems reviewed & are unremarkable except as noted in HPI & below. Physical Exam . alert and oriented. NAD. Left knee: well healed scar from tka. Some ecchymosis and swelling anteriorly, around the prepatella bursa. No joint effusion. Able to do a straight leg raise. No instability. extensor mechanism intact. Results & Data Results & Data Laboratory Results . Diagnostic Findings .xrays reviewed of the left knee shows the previous tka. No fracture of dislocation. PG Care Time/CCT Total # of Minutes Spent Total Time Spent with Patient: Total time spent is greater than 50% in coordination of care (as documented) at patient's floor/unit and/or counseling patient: Coding Level of Care Code 28150 IN/OBS CONSULT LVL 3,45M Diagnoses Prepatellar bursitis, left knee M70.42
--- NOTE | 2024-06-30 14:27 | Hospitalist Progress Note ---
Date of Service June 30, 2024 Assessment & Plan (1) Stroke-like symptoms: Plan: Strokelike symptoms DD: Focal Seizures Presented with slurred speech and recurrent falls, has been evaluated multiple times for the same CT head: showed no acute pathology TSH normal Workup for myasthenia gravis pending Vitamin B12 levels normal Continue aspirin, Plavix, statin Continue carbamazepine, Keppra Seizure precautions Neurochecks Neurology [place] as per patient/family's request [place] [place], daughter requesting 2nd opinion with [facility] Neurology, sonult placed -orthostatic vitals per [facility] Neuro ordered Fall, seizure, aspiration precautions PT OT as able Monitor on telemetry Left knee effusion secondary to fall Recurrent falls Unclear etiology PT OT, fall precautions Given history of L TKA, orthopedics was consulted on admission, appreciate recs Imaging studies showed no signs of acute fractures Seizure disorder Continue home medications Follows with [facility] neurology Considering ambulatory EEG last admission EEG ordered and pending Check Keppra, carbamazepine levels Hyperthyroidism Continue methimazole Mood disorder Continue home medications DVT Px: SCDs for now CODE STATUS Full code Admission and Anticipated Discharge Date Admission Date: June 29, 2024 Subjective pt was seen multiple times during the day. initially with daughter at bedside, daughter expressing frustration that "nothing was found" but pt having frequent falls, with intermittent episodes of weakness and slurred speech. Daughter concerned that Neurology was signing off. Asking for second opinion once more. Later notified that pt had worked with PT and that she had an episode of ataxia and shuffling gait. Discussed with PT Javi, who stated he was recommending acute rehab based on his work with the pt today. Case discussed with [facility] neurology. Review of Systems Review of Systems: All systems reviewed & are unremarkable except as noted in Subjective Physical Exam Physical Exam: General: Alert, oriented. No acute distress Psych: Appropriate mood and affect Neuro: No gross deficits during this provider's exam HEENT: NC/AT CV: RRR Resp: Breath sounds clear bilaterally, no increased effort of breathing. Abdomen: Soft, nontender, nondistended. Extremities: No edema in lower extremities bilaterally. Results & Data Results & Data Vital Signs (Past 12 Hours) Vital Signs Temp Pulse Pulse Resp BP Pulse Ox O2 Del Method 06/30/24 11:14 36.7 C 74 20 109/70 96 Room Air 06/30/24 07:33 36.6 C 74 18 103/66 95 Room Air 06/30/24 07:15 Room Air 06/30/24 07:00 75 06/30/24 04:01 36.3 C L 77 18 98/65 L 94 Room Air
--- NOTE | 2024-06-30 15:50 | Communication Note ---
Date of Service: June 30, 2024 The patient was seen by another group of neurology, she was recently evaluated by [facility] and I do feel like this could have been hemodynamic event with anxiety overlay. Recommend checking her orthostatic blood pressure. Consider elastic stockings if the patient has positive orthostasis. She might need to be evaluated in person by an outpatient neurologist for gait abnormalities if there is any. Low suspicion for stroke or seizures.
[2024-06-30] MEDS: PRAVASTATIN SOD 20 MG TAB PO SCH (16:26)
[2024-06-30] MEDS: ACETAMINOPHEN 325 MG TAB PO PRN (20:25)
[2024-06-30] MEDS: MELATONIN 3 MG TAB PO PRN (20:25)
[2024-07-01 07:11] LABS: Hematocrit (blood only) 38.1 % (37.0-47.0); Hemoglobin 12.8 g/dl (12.0-16.0); Mean Corpuscular Hemoglobin 32.2 pg (25.0-34.0); Mean Corpuscular Hgb Conc 33.6 g/dL (32.0-36.0); Mean Corpuscular Volume 95.7 fL (80.0-100.0); Mean Platelet Volume 9.3 fL (9.4-12.4); Platelet Count 223 K/uL (130-400); RDW Coefficient of Variation 12.8 % (11.5-14.5); RDW Standard Deviation 44.6 fL (36.4-46.3); Red Blood Count 3.98 M/uL (4.20-5.40); White Blood Count 6.63 K/ul (4.8-10.8)
[2024-07-01 07:20] LABS: BUN Creatinine Ratio 25.5 (10-20); Calcium 8.5 mg/dl (8.6-10.3); Creatinine Clr Calc Pharmacy 82.6 ml/min; Est GFR (African American) 107.5 ml/min; Est GFR (Non-African American) 92.8 ml/min; Magnesium 1.9 mg/dl (1.7-2.4); Phosphorus 3.3 mg/dl (2.5-4.9)
[2024-07-01] MEDS: LORazepam 2 MG/1 ML VIAL IV ONE ×2 (12:03→12:18)
[2024-07-01] MEDS: GADOBUTROL 65ML VIAL IV ONE (13:09)
--- NOTE | 2024-07-01 13:46 | Magnetic Resonance Report ---
MRI OF THE BRAIN WITHOUT AND WITH IV CONTRAST CLINICAL HISTORY: Intermittent slurred speech, weakness. COMPARISON STUDY: MRI of the brain June 21, 2024. Head CT June 29, 2024. TECHNIQUE: Utilizing a 1.5 Keiry magnet and dedicated coil, multiplanar, multiecho imaging of the br ain was performed pre and postcontrast administration. IV administration of 6.5 mL of Gadavist contr ast was uneventful. FINDINGS: There are no foci of restricted diffusion to suggest acute infarct. No acute intracranial h emorrhage, midline shift or mass effect is present. Ventricular system is normal. Basal cisterns are patent. There are no extra-axial collections. Flow-voids for the major intracranial vessels are prese nt. There is no intracranial mass or pathologic enhancement. Mild white matter T2 hyperintense foci a re unchanged and suggest minimal small vessel disease. Calvarial signal is normal. IMPRESSION: 1. No acute intracranial findings. 2. No intracranial mass or pathologic enhancement. 3. No change in appearance of the brain since MRI of June 21, 2024. ACT 112: Negative or not required by law. Electronically signed by: Tato Epstein M.D. 07/01/2024 1:45 PM
--- NOTE | 2024-07-01 16:48 | Hospitalist Progress Note ---
Date of Service July 01, 2024 Assessment & Plan (1) Stroke-like symptoms: Plan: Ms Kenney is a 79-year-old female with history of multinodular goiter, osteoarthritis, osteoporosis, peripheral neuropathy, seizure disorder, GERD, mood disorder, TIA and other medical problems presents with history of strokelike symptoms. Patient has had multiple admissions for this evaluation. Patient has overall had negative work up to date. #Strokelike symptoms #Anxiety #H/o depression DD: Focal Seizures Presented with slurred speech and recurrent falls, has been evaluated multiple times for the same CT head: showed no acute pathology MRI No change in appearance of the brain since MRI of June 21, 2024. TSH normal Workup for myasthenia gravis pending Vitamin B12 levels normal Continue aspirin, Plavix, statin Continue carbamazepine, Keppra Seizure precautions Neurochecks Neurology consulted as per patient/family's request -[facility] [place] Neurology signed off on 06/30, daughter requesting 2nd opinion with [facility] Neurology, sonult placed -orthostatic vitals negative Fall, seizure, aspiration precautions PT OT: rehab Monitor on telemetry Psych consult: uptitrate medications v other management? #Left knee effusion secondary to fall Recurrent falls Unclear etiology PT OT, fall precautions Given history of L TKA, orthopedics was consulted on admission, appreciate recs Imaging studies showed no signs of acute fractures #Seizure disorder Continue home medications Follows with [facility] neurology Considering ambulatory EEG last admission EEG ordered and pending Check Keppra, carbamazepine levels #Hyperthyroidism Continue methimazole #Mood disorder Continue home medications DVT Px: SCDs for now CODE STATUS Full code Admission and Anticipated Discharge Date Admission Date: June 29, 2024 Subjective NAEO Reports feeling well overall Denies any other acute concerns Reports intermittent concerns with speech and weakness Physical Exam Constitutional: WD/WN, vitals as above Respiratory: normal respiratory effort, lungs clear to auscultation Cardiovascular: RRR, no murmur, no edema Results & Data Results & Data Vital Signs (Past 12 Hours) Vital Signs Temp Pulse Pulse Resp BP Pulse Ox O2 Del Method 07/01/24 15:25 36.6 C 87 18 100/62 94 Room Air 07/01/24 15:20 87 07/01/24 11:28 36.8 C 81 17 112/72 95 Room Air 07/01/24 08:13 36.6 C 78 17 117/73 94 Room Air 07/01/24 08:00 67 Diagnostic Findings MRI OF THE BRAIN WITHOUT AND WITH IV CONTRAST CLINICAL HISTORY: Intermittent slurred speech, weakness. COMPARISON STUDY: MRI of the brain June 21, 2024. Head CT June 29, 2024. TECHNIQUE: Utilizing a 1.5 Keiry magnet and dedicated coil, multiplanar, multiecho imaging of the brain was performed pre and postcontrast administration. IV administration of 6.5 mL of Gadavist contrast was uneventful. FINDINGS: There are no foci of restricted diffusion to suggest acute infarct. No acute intracranial hemorrhage, midline shift or mass effect is present. Ventricular system is normal. Basal cisterns are patent. There are no extra- axial collections. Flow-voids for the major intracranial vessels are present. There is no intracranial mass or pathologic enhancement. Mild white matter T2 hyperintense foci are unchanged and suggest minimal small vessel disease. Calvarial signal is normal. IMPRESSION: 1. No acute intracranial findings. 2. No intracranial mass or pathologic enhancement. 3. No change in appearance of the brain since MRI of June 21, 2024. ACT 112: Negative or not required by law.
[2024-07-01 20:03] VITALS: RESP 16
[2024-07-02 07:44] LABS: Hematocrit (blood only) 37.8 % (37.0-47.0); Hemoglobin 12.9 g/dl (12.0-16.0); Mean Corpuscular Hemoglobin 32.6 pg (25.0-34.0); Mean Corpuscular Hgb Conc 34.1 g/dL (32.0-36.0); Mean Corpuscular Volume 95.5 fL (80.0-100.0); Mean Platelet Volume 9.2 fL (9.4-12.4); Platelet Count 243 K/uL (130-400); RDW Coefficient of Variation 12.8 % (11.5-14.5); RDW Standard Deviation 44.8 fL (36.4-46.3); Red Blood Count 3.96 M/uL (4.20-5.40)
[2024-07-02 08:21] LABS: Calcium 8.8 mg/dl (8.6-10.3); Est GFR (African American) 106.8 ml/min; Est GFR (Non-African American) 92.2 ml/min; Potassium 4.1 mmol/L (3.5-5.1)
[2024-07-02 12:04] VITALS: BP 118/75; TEMP 97.5; O2SAT 96
--- NOTE | 2024-07-02 12:29 | Discharge Summary ---
Discharge Summary Date of Service July 02, 2024 Principal Dx & Hospital Course #1 = Principal Diagnosis (1) Stroke-like symptoms: Ms Kenney is a 79-year-old female with history of multinodular goiter, osteoarthritis, osteoporosis, peripheral neuropathy, seizure disorder, GERD, mood disorder, TIA and other medical problems presents with history of strokelike symptoms. Patient has had multiple admissions for this evaluation. Patient has overall had negative work up to date. Neurology unclear of etiology of episodes. Suspected to be anxiety provoked or orthostatic, however, events happen regardless of position change--marked by slurred speech and flattened affect. Psych curbsided--spoke to Dr. De La O over phone who states that if it was mood d/o contributing it would not be in this random "on/off" tempo. Dr De La O recommended to increase escitalopram to help with underlying anxiety. Spoke to daughter that myasthenia labs are still pending and follow up with neurology will be prudent. On day of discharge, patient was pleasant and without acute concerns. #Strokelike symptoms #Anxiety #H/o depression DD: Focal Seizures Presented with slurred speech and recurrent falls, has been evaluated multiple times for the same CT head: showed no acute pathology MRI No change in appearance of the brain since MRI of June 21, 2024. TSH normal Workup for myasthenia gravis pending Vitamin B12 levels normal Continue aspirin, Plavix, statin Continue carbamazepine, Keppra Seizure precautions Neurochecks Neurology consulted as per patient/family's request [place] [place] signed off on 06/30, daughter requesting 2nd opinion with [facility] Neurology, [facility] placed -orthostatic vitals negative Fall, seizure, aspiration precautions PT OT: rehab Monitor on telemetry Psych consult: uptitrate medications v other management? -Increase escitalopram to 20mg qhs #Left knee effusion secondary to fall Recurrent falls Unclear etiology PT OT, fall precautions Given history of L TKA, orthopedics was consulted on admission, appreciate recs Imaging studies showed no signs of acute fractures #Seizure disorder Continue home medications Follows with [facility] Considering ambulatory EEG last admission EEG ordered and pending Check Keppra, carbamazepine levels #Hyperthyroidism Continue methimazole #Mood disorder Continue home medications Notes For Next Care Provider Medication Changes From Visit Increased Escitalopram to 20mg at bedtime Admission Exam Per Admitting Provider Physical Exam: Vitals signs as noted above General Appearance:Moderately built and nourished, no apparent distress Head: normocephalic, Atraumatic Eyes: normal inspection, EOMI Neck: supple, Trachea midline Respiratory/Chest: Normal breath sounds, CTA, No accessory muscle use Cardiovascular: S1, S2, No murmur Abdomen/GI:Soft, Non tender, Bowel sounds present Extremities/Musculoskeletal:normal inspection, 1+edema, L knee contusion Spine: Kyphosis Neurologic/Psych:AAOX3, grossly no focal neurological deficits Skin: normal color, warm Discharge Exam Constitutional WD/WN, vitals as above Respiratory normal respiratory effort, lungs clear to auscultation Cardiovascular RRR, no murmur, no edema Updated Medication List Medication Instructions Recorded Confirmed Type turmeric 400 mg capsule 400 mg PO QAM 07/24/19 06/29/24 History calcium carbonate 500 mg-vitamin 1 tab PO BID 04/24/22 06/29/24 History D3 5 mcg (200 unit) tablet (Calcium 500 + D) carbamazepine 400 mg 400 mg PO Q12H 04/24/22 06/29/24 History tablet,extended release,12 hr glucosamine-chondroitin 250 mg-200 1 tab PO BID 04/24/22 06/29/24 History mg tablet (Osteo Bi-Flex) multivitamin with minerals 1 tab PO QDL 04/24/22 06/29/24 History olopatadine 0.1 % eye drops 1 drp OPB DAILY PRN allergies 04/24/22 06/29/24 History vitamin B complex 1 tab PO QDL 04/24/22 06/29/24 History L.acidop,casei,lactis,rham-B.lact,marcelle 1 cap PO QPM 05/17/23 06/29/24 History 625 mg (10 billion cell) capsule (Advanced Probiotic) methimazole 5 mg tablet 5 mg PO QAM 05/17/23 06/29/24 History aspirin 81 mg tablet,delayed 81 mg PO QAM 09/04/23 06/29/24 History release latanoprost 0.005 % eye drops 1 drp OPR HS 09/04/23 06/29/24 History clopidogrel 75 mg tablet 75 mg PO QAM #20 tabs 06/08/24 06/29/24 Rx pravastatin 20 mg tablet 20 mg PO DAILY@1700 30 days #30 06/25/24 06/29/24 Rx tabs levetiracetam 500 mg tablet 500 mg PO BID 06/29/24 06/29/24 History escitalopram oxalate 10 mg tablet 20 mg (2 x 10 mg) PO HS #0 tabs 07/02/24 06/29/24 Rx Hospital Stay Data Consultations 06/29/24 16:56 ED Decision to Admit Stat 06/29/24 19:23 Consult Neurology Routine Consult Orthopedic Surgery Routine 06/30/24 13:14 Consult Neurology Routine Diagnostic Imagining Performed 06/29/24 14:33 CT cervical spine wo con Stat CT head/brain wo con Stat 07/01/24 07:54 MR brain wo/w con Routine Pending Results Patient Have Any Pending Studies at Discharge: No Discharge Instructions Given to Patient (Per Discharging Provider) You were admitted for concerns of stroke or other neurologic issue given recent episodes of dysarthria and bilateral leg weakness. Multiple images do not reveal a stroke and special MRI did not reveal lesions consistent with a demyelination disorder. You still have labs pending for autoimmune etiology which will be reviewed by neurologist once they result. It is imperative that you follow up with Neurology closely, as there are other tests and evaluations that could be pursued as an outpatient that are not available while admitted in the hospital. Discussion was had with the Psychiatrist who feels that the frequency and tempo of these events are less likely related to mood disorder, however, given concerns of anxiety it is reasonable to increase Escitalopram to 20mg at bedtime. Total Time Total Time Spent Total Time Spent (In Minutes): 45
[2024-07-02 14:57] VITALS: PULSE 88
[2024-07-02] MEDS ORDERED: ESCITALOPRAM OXALATE 20 MG TAB PO SCH (21:00)
[2024-07-05 04:13] LABS: Carbamazepine Tegretol 8.4 mg/L (4.0-12.0); Levetiracetam Keppra 6.5 mcg/mL (6.0-46.0)
== END 2024-07-02 18:32 | DRG 93 ==
LOC: ED 14:24 → 2N 17:15 → SUATTDRO 17:15 → 2N 18:37

== ENCOUNTER 2024-11-27 06:13 | Observation (INO) ==
--- NOTE | 2024-11-02 15:14 | PAT Medication Instructions ---
Medication Instructions Date of Service November 02, 2024 Home Medications Medication Instructions Recorded levetiracetam 1,000 mg tablet 1,000 mg PO BID 30 days #60 tabs 09/01/24 Medication List: calcium 500 mg (as carbonate)-vitamin D3 5 mcg (200 unit) tablet (Calcium 500 + D) 1 tab PO BID multivitamin with minerals 1 tab PO DAILY olopatadine 0.1 % eye drops 1 drp OPB DAILY PRN allergies vitamin B complex 1 tab PO DAILY L.acidop,casei,lactis,rham-B.lact,marcelle 625 mg (10 billion cell) capsule (Advanced Probiotic) 1 cap PO QPM methimazole 5 mg tablet 5 mg PO QAM aspirin 81 mg tablet,delayed release 81 mg PO QAM latanoprost 0.005 % eye drops 1 drp OPR HS escitalopram oxalate 10 mg tablet 10 mg PO HS levetiracetam 1,000 mg tablet 1,000 mg PO BID pravastatin 20 mg tablet 20 mg PO HS MEDICATION INSTRUCTIONS: Continue as directed olopatadine 0.1 % eye drops 1 drp OPB DAILY PRN allergies ASK your prescriber and surgeon aspirin 81 mg tablet,delayed release 81 mg PO QAM DO NOT take the morning of surgery calcium 500 mg (as carbonate)-vitamin D3 5 mcg (200 unit) tablet (Calcium 500 + D) 1 tab PO BID vitamin B complex 1 tab PO DAILY multivitamin with minerals 1 tab PO DAILY Take morning of surgery With a small sip of water, OTHERWISE NOTHING TO EAT OR DRINK AFTER MIDNIGHT: levetiracetam 1,000 mg tablet 1,000 mg PO BID methimazole 5 mg tablet 5 mg PO QAM Take evening before surgery latanoprost 0.005 % eye drops 1 drp OPR HS escitalopram oxalate 10 mg tablet 10 mg PO HS pravastatin 20 mg tablet 20 mg PO HS L.acidop,casei,lactis,rham-B.lact,marcelle 625 mg (10 billion cell) capsule (Advanced Probiotic) 1 cap PO QPM levetiracetam 1,000 mg tablet 1,000 mg PO BID calcium 500 mg (as carbonate)-vitamin D3 5 mcg (200 unit) tablet (Calcium 500 + D) 1 tab PO BID Other Notes If you have any questions please call us at [phone] or [phone] or [phone] or [phone]
--- NOTE | 2024-11-10 14:21 | Anesthesiology Consultation ---
Date of Service November 10, 2024 Assessment & Plan (1) Encounter for pre-operative examination: - Infectious disease screening: Per assessment on 10/28/24- No known recent infectious disease contacts or current infectious disease symptoms. - Outpatient joint assessment: Pt currently scheduled for inpatient pathway. If surgeon requests review for outpatient joint pathway, patient is not recommended candidate for outpatient joint program from anesthesia standpoint based on available information. - Neurology visit (09/01/24): "79-year-old female with a longstanding history of epilepsy, has also been having possible vasovagal presyncopal episodes, uncertain if some of these events may be due to atypical seizure activity. 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 Ambulatory EEG pending. She has been doing well with transitioning from carbamazepine to levetiracetam. At this point, patient will reduce her dosage of Tegretol to 1 tablet/day for 1 week then stop. She will continue with Keppra 1000 mg twice daily. Patient and her daughter will monitor for any significant change in clinical status, if any concern for further breakthrough events, may increase her dosage of Keppra. Return to clinic in 6 months." > Patient states feeling well- no further episodes (suspected vasovagal attacks, presyncopal episodes). 3 day EEG with ECG monitoring completed 08/2024- Per report, ECG with No significant rate or rhythm changes are noted. No clear epileptiform discharges were seen. No further episodes per patient. Nothing further recommended from neurology at this time. Recommend f/u appt 02/2025. - S/P Left TKA (06/28/23): SAB at L3/4 (1 attempt) + regional at [facility] - Thyroid goiter: Long standing thyroid goiter noted on imaging dating back to 08/2022 Neck CTA. Most recently noted on 09/23/24 CXR- "Left paratracheal opacity is again noted secondary to the patient's large thyroid goiter with rightward deviation of the trachea." Comparison Neck CTAs from 05/2024 and 04/2022. No dysphagia/odynophagia per patient. Images/area of deviation/previous anesthesia personally reviewed by Dr. David- nothing further needed pre/perioperatively from his perspective. - [facility] ER visit (09/23/24): Chest tightness, palpitations/heart racings, shortness of breath > "On arrival emergency department the patient reports no symptoms at this time. She denies any recent illness including fevers, chills, cough, congestion, GI or symptoms. She denies any recent pattern of exertional chest pain. She denies any history of similar constellation of symptoms. Of note, the patient was admitted to this facility in May of this year for strokelike symptoms that were suspected to be related to breakthrough seizures. She is following with her [place] neurology for this and had a recent outpatient home EEG in combination with a 72-hour heart monitor. They are waiting for the results. The patient did have an unremarkable echocardiogram in May of this year.. Unclear etiology to the patient's episode of symptoms this morning. However, given patient's reassuring evaluation and monitoring in the emergency department unlikely to have emergent process at this time. Given reassuring EKG and normal high-sensitivity troponin x 2 ACS and high risk arrhythmia are considered less likely. Additionally, the patient denies having any exertional pattern of symptoms prior to this morning and so unstable angina also is unlikely. Patient denies pleuritic symptoms or tearing or stabbing pain and with pulses equal, EKG and chest x-ray reassuring, and normal high- sensitivity troponin, PE and acute aortic pathology are unlikely. Plan for outpatient follow-up with the patient's PCP. They will also reach out to her neurologist to see if there has been updated on receiving the report from her recent 72-hour heart monitor. They will discuss possible 30-day monitor pending these results." > 3 day EEG with ECG monitoring completed 08/2024- Per report, ECG with No significant rate or rhythm changes are noted. No clear epileptiform discharges were seen. Patient has not seen PCP since ER visit. - Case reviewed with Dr. David. Note written to PCP regarding recent ER visit and upcoming surgery- Awaiting PCP response ([facility] June/Dr. Elvia Rodriguez). Patient otherwise acceptable risk for surgery. Chart Review Chart Review: Patient seen in Pre Admission Testing Teaching & Discussion Pre-Anesthesia Teaching/Discussion Notes: Instructed NPO after midnight before surgery,except medications with 15 cc of water. Medication instructions provided according to the PAT guidelines. History Surgery Operation Date: 11/27/24 10:00 Proposed Procedures p Right Total Knee Arthroplasty - Lopez Alfonso DO Height/Weight Height: 5 ft 2 in Weight: 68.8 kg Allergies Allergy/AdvReac Type Severity Reaction Status Date / Time clams Allergy Severe Dyspepsia, Verified 10/28/24 14:26 abdominal pain Medications Home Medications Medication Instructions Recorded Confirmed Last Taken calcium 500 mg (as 1 tab PO BID 04/24/22 10/28/24 06/20/24 08:00 carbonate)-vitamin D3 5 mcg (200 unit) tablet (Calcium 500 + D) multivitamin with minerals 1 tab PO DAILY 04/24/22 10/28/24 06/20/24 olopatadine 0.1 % eye drops 1 drp OPB DAILY PRN allergies 04/24/22 10/28/24 06/26/23 08:00 vitamin B complex 1 tab PO DAILY 04/24/22 10/28/24 06/20/24 L.acidop,casei,lactis,rham-B.lact,marcelle 1 cap PO QPM 05/17/23 10/28/24 06/20/24 625 mg (10 billion cell) capsule (Advanced Probiotic) methimazole 5 mg tablet 5 mg PO QAM 05/17/23 10/28/24 06/20/24 aspirin 81 mg tablet,delayed 81 mg PO QAM 09/04/23 10/28/24 06/20/24 release latanoprost 0.005 % eye drops 1 drp OPR HS 09/04/23 10/28/24 06/19/24 escitalopram oxalate 10 mg tablet 10 mg PO HS 09/01/24 10/28/24 Unknown levetiracetam 1,000 mg tablet 1,000 mg PO BID 30 days #60 tabs 09/01/24 10/28/24 Unknown pravastatin 20 mg tablet 20 mg PO HS 09/01/24 10/28/24 Unknown Past Medical History Medical History Anxiety Arthritis Diverticular disease Glaucoma B/L Hiatal hernia History of TIAs (2021) Possible Follows with [facility] [place] neuro Hx of basal cell carcinoma s/p excision Hyperthyroidism Taking Methimazole Multinodular goiter Osteoarthritis Osteoporosis Seizure disorder Most recent seizure 10+ years ago Taking Levetiracetam Follows with [facility] [place] neuro Tachycardia (09/2024) [facility] ER visit > discussed f/u with PCP + neuro (recent 72 hour heart monitor mentioned) Vasovagal episode Hx Exercise / Class Metabolic Activity III < 4 Walking/Shop/Light housework Past Family History Family History Daughter Breast cancer Past Surgical History Surgical History History of anesthesia reaction Difficulty waking & low BP requiring additional days stay during left knee surgery 2022 History of colonoscopy History of elbow surgery Right x2 (removal of hardware) History of tonsillectomy History of tooth extraction History of total left knee replacement (TKR) (06/28/23) Left TKA (06/28/23): SAB at L3/4 (1 attempt) + regional at [facility] Hx laparoscopic cholecystectomy (07/2019) Laparoscopic Cholecystectomy (08/06/19): Grade 1 view, MAC#3, ETT 7.0, atraumatic Hx of basal cell carcinoma excision Hx of cataract surgery R/L Past Anesthesia History No Family Hx of Anesthesia Complications and Other (Difficulty waking & low BP requiring additional days stay during left knee surgery 2022) History of PONV No Hx of PONV and No Hx of Motion Sickness Social History Smoking Status: Never smoker Do You Dip or Chew Tobacco: No Hx Alcohol Use: Yes Alcohol type: wine alcohol intake frequency: holidays/special occasions only Hx Substance Use: No substance use type: does not use Review of Systems Rare palpitations. Patient denies chest pain, shortness of breath, fever, chills, cough, wheezing. Physical Exam Vital Signs BP 110/72 P 83 TEMP 97.5 SP02 95%RA RESP 16 Physical Full cervical extension range of motion. Full TMJ range of motion. TMD 3 finger breaths Mallampati Score II Dentition: missing molars Lungs: clear throughout to auscultation Cardiac: regular rate and rhythm, no murmurs noted Spine: normal Carotid arteries: negative bruit Extremities: trace non-pitting LE edema Lab Results Anesthesia Preop Results Results Anesthesia Widget: WBC 8.04 K/ul (4.8-10.8) 11/10/24 Hgb 14.3 g/dl (12.0-16.0) 11/10/24 Hct 42.1 % (37.0-47.0) 11/10/24 Plt 235 K/uL (130-400) 11/10/24 Na 141 mmol/L (136-145) 11/10/24 K 4.2 mmol/L (3.5-5.1) 11/10/24 Cl 107 mmol/L (98-107) 11/10/24 CO2 27 mmol/L (21-32) 11/10/24 BUN 24 mg/dl (6-23) H 11/10/24 Creat 0.82 mg/dl (0.6-1.2) 11/10/24 Glucose Level 100 mg/dl (70-99(Fasting)) H 11/10/24 PT 10.3 Seconds (9.0-12.0) 11/10/24 PTT 26 Seconds (21-31) 11/10/24 INR 0.9 (0.9-1.1) 11/10/24 TSH 1.861 uIu/ml (0.300-4.500) 09/23/24 Blood Type O Positive 11/10/24 Antibody Screen NEGATIVE 11/10/24 Testing Electrocardiogram Date: 09/23/24 NSR at 97bpm. "Normal ECG" Chest X-Ray Date: 09/23/24 FINDINGS: Cardiac silhouette is enlarged. Large hiatal hernia. No pneumothorax, large pleural effusion or overt pulmonary edema. Mild subsegmental bibasilar densities suggestive of atelectasis. Bones appear grossly intact. Left paratracheal opacity is again noted secondary to the patient's large thyroid goiter with rightward deviation of the trachea. IMPRESSION: 1. Cardiomegaly without acute process. 2. Large hiatal hernia. 3. Large thyroid goiter. Echocardiogram Date: 06/07/24 EF 60-65%. LV wall motion is normal. Borderline cLVH. Mild TR. Other Testing Neck CTA Date: 06/20/24 Findings: A multinodular thyroid goiter is again noted. This is similar to prior exams. There is no cervical lymphadenopathy. There are no cervical spine fractures. Visualized portions of the lung apices are unremarkable. The bilateral common carotid, cervical internal carotid and vertebral arteries are patent. No stenosis or dissection is identified. There is no aneurysm within the neck. There is mild plaque within the carotid bifurcations without stenosis. IMPRESSION: No stenosis or dissection within the bilateral common carotid, cervical internal carotid or vertebral arteries. 3 day EEG with ECG monitoring Date: 09/02/24 ECG: No significant rate or rhythm changes are noted. This ambulatory EEG suggests right temporal dysfunction, based on interictal right temporal intermittent slowing, at times sharply contoured. No clear epileptiform discharges were seen.
--- OUTSIDE RECORDS SUMMARY | 2024-11-27 06:18 | External Medical Summary | Summary of Care ---
Author Name Unknown Organization [facility] Address [address] [place] [address] Phone [phone] Care Team Providers Care Clinical Recruiter Name Role Phone Elvia Rodriguez MD Primary Care Provider + Encounter Details Date Type Department Care Team (Late st Contact Info) Description 11/12/2024 Population Health External Data Unspecified Department Allergies Active Allergy Reactions Criticality Noted Date Comments Bee Venom Edema Other 02/18/2017 "itching, red, swelling, but only at the place where I got stung" Clam Shell Diarrhea 04/24/2022 Pollen 08/14/2022 Unsure exactly what, but has some sort of seasonal allergy documented as of this encounter (statuses as of 11/12/2024) Medications Multiple Vitamins-Mineral s (MULTIVITAMIN WOMEN 50+) TABS Take 1 Tab by mouth daily. Active vitamin b-complex/vitami n C (THERAPEUTIC B COMPLEX W/C) TABS Take 1 Tablet by mouth in the morning. Active Turmeric 500 MG Capsule Take 1 Capsule by mouth in the morning. Active Calcium Carbonate-Vitami n D 600-200 MG-UNIT Oral Tablet Take 1 Tablet by mouth in the morning. Active lactobacillus rhamnosus, GG, (CULTURELLE) Capsule Take 1 Cap by mouth 2 times a day. 30 Cap 9 Active Ascorbic Acid (VITAMIN C) 100 MG Tablet Take 1 Tablet by mouth in the morning. Active zoster vac recomb adjuvanted (SHINGRIX) 50 MCG/0.5ML injectionIndicat ions:Need for vaccination for zoster Inject 0.5 mL into a large muscle now and repeat dose in 60 to 180 days 1 Each 1 0 Active Additional Information Patient not taking.Reported on 07/28/2024 Aspirin 81 MG Oral Tablet Chewable Take 1 Tablet by mouth in the morning. Active Latanoprost 0.005 % Ophthalmic Emulsion Instill 1 Drop into the right eye at bedtime. 3 Active Triamcinolone Acetonide 0.1 % External Lotion (Aristocort)Coleen cations:Psoriasi s apply topically to affected areas on scalp daily. after 2 weeks use several times a week as needed 60 mL 4 Active methIMAzole 5 MG Oral Tablet (Tapazole)Indica tions:History of TIA (transient ischemic attack) Take 1 Tablet by mouth in the morning. In the morning.. 90 Tablet 4 Active levETIRAcetam 250 MG Oral Tablet (Keppra) Take 1 Tablet by mouth in the morning and 1 Tablet before bedtime. Active carBAMazepine ER 400 MG Oral Tablet Extended Release 12 Hour (Tegretol-Xr)Ind ications:Other generalized epilepsy, not intractable, without status epilepticus (HCC) Take 1 Tablet by mouth in the morning and 1 Tablet before bedtime. 60 Tablet 4 Active Pravastatin Sodium 20 MG Oral Tablet (Pravachol) Take 1 Tablet by mouth every evening. 1 daily 30 Tablet 5 4 Active Escitalopram Oxalate 10 MG Oral Tablet (Lexapro)Indicat ions:NAVIN (generalized anxiety disorder),Curren t moderate episode of major depressive disorder, unspecified whether recurrent (HCC) TAKE 1 TABLET BY MOUTH EVERY MORNING 90 Tablet 3 5 Active documented as of this encounter (statuses as of 11/12/2024) Active Problems Problem Noted Date Diagnosed Date [...] as of this encounter (statuses as of 11/12/2024) Resolved Problems Problem Noted Date Diagnosed Date Resolved Date Epilepsy 04/07/2019 10/29/2022 Senile osteoporosis 04/07/2019 10/29/19 documented as of this encounter (statuses as of 11/12/2024) Immunizations Name Administration Dates Next Due COVID-19 mRNA, LNP-s, No Pre serve, 2-Dose Series (Moderna) 12/18/2020,11/13/2020 COVID-19, mRNA, LNP-s, PF, B ooster, 100mcg/0.5mg (Moderna) 09/18/2021 Pneumococcal Conjugate Vacc, 13 Valent (Prevnar) 06/11/2019 Pneumococcal Polysaccharide PPV23 (Pneumovax) 06/16/2020 Seasonal Influenza Virus Vac cine, Unspecified Formulation 07/24/2021,06/16/2020,07/17/2019,07/10,07/26/2017 Seasonal Influenza, High Dos e, Trivalent, PF, IM (Fluzone HD) 07/28/2024 Seasonal Influenza, PF, 6 M & above, [...] Answer Date Recorded PHQ Adult Total Score 0 06/16/2024 Hunger Vital Sign Answer Date Recorded Within the past 12 months, y ou worried that your food would run out before you got the money to buy more. Never true 09/13/20 20 Within the past 12 months, t he food you bought just didn't last and you didn't have money to get more. Never true 09/13/2020 Comments No Sex and Gender Information Value Date Recorded Sex Assigned at Female 06/11/2019 8:41 AM EDT Legal Sex Female 7:03 AM EST Gender Identity Female 06/11/2019 8:41 AM EDT Sexual Orientation Straight 06/11/2019 8: 41 AM EDT documented as of this encounter Functional Status * Are you deaf or do you have serious difficulty hearing? Answer Date of Assessment Author No 10/28/2018 5:00 PM Noemy Bee RN * Are you blind or do you have serious difficulty seeing, even when wearing glasses? Answer Date of Assessment Author No 10/28/2018 5:00 PM Noemy Bee RN * Do you have serious difficulty walking or climbing stairs? (5 years old or older) Answer Date of Assessment Author Yes 10/28/2018 5:00 PM Noemy Bee RN * Do you have difficulty dressing or bathing? (5 years old or older) Answer Date of Assessment Author No 10/28/2018 5:00 PM Noemy Bee RN * Because of a physical, mental, or emotional condition, do you have difficulty doing errands alone such as visiting a doctors office or shopping? (15 years old or older) Answer Date of Assessment Author No 10/28/2018 5:00 PM Noemy Bee RN documented as of this encounter Mental Status * Because of a physical, mental, or emotional condition, do you have serious difficulty concentrating, remembering, or making decisions? (5 years old or older) Answer Entry Date Author No 10/28/2018 5:00 PM Noemy Bee RN documented in this encounter Plan of Treatment Upcoming Encounters Date Type Department Care Team (Late st Contact Info) Description 04/06/2025 3:00 PM EDT Imaging Radiology [facility] [address] [place] [phone] 07/21/2025 3:40 PM EDT Office Visit Rheumatology [facility] [address] [place] [phone] Lopez Loyola MD [address] [facility] [place] [address] Scheduled Procedures Name Priority Associated Diagnoses Date/Ti me COLONOSCOPY FLEXIBLE PROXIMA L DIAGNOSTIC Recall Special screening for malignant neoplasms, colon Health Maintenance Due Date Last Done Comments Adult Wellness Visit 2013 COVID-19 Vaccine ( season) 2024 07/27/2023, 09/18/2021, 12/18/2020, Additional history exists DXA Scan 11/26/2024 11/26/2022, 03/2023, 11/22/2020, Additional history exists Zoster Vaccines (1 of 2) 05/21/2025 Pos tponed from 1997 (Patient Declined After Education) Depression Monitoring 06/16/2025 06/16/2024 DTap/Tdap Vaccines (2 - Td or Tdap) 07/01/2029 07/01/2019 Colonoscopy Discontinued 12/07/2011 Colorectal Cancer Screening Discontinued Pneumococcal Vaccine: 50+ Years Completed 06/16/2020, 06/11/2019 Influenza Vaccine (FLU shot) Completed 07/28/2024, 07/27/2023, 08/14/2022, Additional history exists VITAMIN D LEVEL ONCE IN A LIFETIME-USE SMARTSET# [id number] Completed 07/28/2024, 05/21/2019 Cologuard Discontinued Fecal Occult Blood Test Discontinued [...] this encounter Medical Devices Implanted Type Area Tube Tester Device Identifier Shelf Expiration Date Model / Serial / Lot Iol Implanted:Qty: 1 on 06/30/2020 by Shaheen De Souza MD at OR [facility] Left: Eye 12/18/2024 [id number] / [id number] / Lens Intraoc 18.0 - [id number] - [id number] Implanted:Qty: 1 on 07/14/2020 by Shaheen De Souza MD at OR [facility] Right: Eye [employer]OMB 02/17/2025 [id number] / [id number] / documented as of this encounter Advance [...] the patient have Health Care Power of Customer Advisor Specialist? Yes, in chart and reviewed as current [...] Power of Attor lesly? No Care Teams Clinical Recruiter Relationship Specialty Start Date End Date Elvia Rodriguez MD [address] [place] [address] PCP - General Internal Medicine 06/11/19 documented as of this encounter
--- OUTSIDE RECORDS SUMMARY | 2024-11-27 06:18 | External Medical Summary | Summary of Care ---
Author Name Unknown Organization [facility] Address [address] [place] [address] Phone [phone] Care Team Providers Care Fashion Buyer Name Role Phone Elvia Rodriguez MD Primary Care Provider + Reason for Visit * Reason Comments pre-op exam Encounter Details Date Type Department Care Team (Latest Contact Info) Description 11/23/2024 4:00 PM EST Office Visit General Internal Medicine [facility] [address] [facility] [place] [address] Lindsey Callahan PA-C [address] [facility] [place] [address] Pre-op exam*; Primary osteoarthritis of one knee, right Allergies Active Allergy Reactions Criticality Noted Date Comments Bee Venom Edema Other 02/18/2017 "itching, red, swelling, but only at the place where I got stung" Clam Shell Diarrhea 04/24/2022 Pollen 08/14/2022 Unsure exactly what, but has some sort of seasonal allergy documented as of this encounter (statuses as of 11/26/2024) Medications Multiple Vitamins-Minera ls (MULTIVITAMIN WOMEN 50+) TABS Take 1 Tab by mouth daily. Active vitamin b-complex/vitam in C (THERAPEUTIC B COMPLEX W/C) TABS Take 1 Tablet by mouth in the morning. Active Calcium Carbonate-Vitam in D 600-200 MG-UNIT Oral Tablet Take 1 Tablet by mouth in the morning. Active lactobacillus rhamnosus, GG, (CULTURELLE) Capsule Take 1 Cap by mouth 2 times a day. 30 Cap 9 Active Ascorbic Acid (VITAMIN C) 100 MG Tablet Take 1 Tablet by mouth in the morning. Active zoster vac recomb adjuvanted (SHINGRIX) 50 MCG/0.5ML injectionIndica tions:Need for vaccination for zoster Inject 0.5 mL into a large muscle now and repeat dose in 60 to 180 days 1 Each 1 0 Active Aspirin 81 MG Oral Tablet Chewable Take 1 Tablet by mouth in the morning. Active Latanoprost 0.005 % Ophthalmic Emulsion Instill 1 Drop into the right eye at bedtime. 3 Active Triamcinolone Acetonide 0.1 % External Lotion (Aristocort)Ind ications:Psoria sis apply topically to affected areas on scalp daily. after 2 weeks use several times a week as needed 60 mL 4 Active methIMAzole 5 MG Oral Tablet (Tapazole)Indic ations:History of TIA (transient ischemic attack) Take 1 Tablet by mouth in the morning. In the morning.. 90 Tablet 4 Active Pravastatin Sodium 20 MG Oral Tablet (Pravachol) Take 1 Tablet by mouth every evening. 1 daily 30 Tablet 5 4 Active Escitalopram Oxalate 10 MG Oral Tablet (Lexapro)Indica tions:NAVIN (generalized anxiety disorder),Curre nt moderate episode of major depressive disorder, unspecified whether recurrent (HCC) TAKE 1 TABLET BY MOUTH EVERY MORNING 90 Tablet 3 5 Active levETIRAcetam 1000 MG Oral Tablet (Keppra) Take 1 Tablet by mouth in the morning and 1 Tablet before bedtime. Active Turmeric 500 MG Capsule Take 1 Capsule by mouth in the morning. 11/23/19 25 Discontinu ed(Medicat ion List Clean Up) levETIRAcetam 250 MG Oral Tablet (Keppra) Take 1 Tablet by mouth in the morning and 1 Tablet before bedtime. 11/23/19 25 Discontinu ed(Medicat ion List Clean Up) carBAMazepine ER 400 MG Oral Tablet Extended Release 12 Hour (Tegretol-Xr)In dications:Other generalized epilepsy, not intractable, without status epilepticus (HCC) Take 1 Tablet by mouth in the morning and 1 Tablet before bedtime. 60 Tablet 4 11/23/19 25 Discontinu ed(Medicat ion List Clean Up) documented as of this encounter (statuses as of 11/26/2024) Active Problems Problem Noted Date Diagnosed Date [...] as of this encounter (statuses as of 11/26/2024) Resolved Problems Problem Noted Date Diagnosed Date Resolved Date Epilepsy 04/07/2019 10/29/2022 Senile osteoporosis 04/07/2019 10/29/19 23 documented as of this encounter (statuses as of 11/26/2024) Immunizations Name Administration Dates Next Due COVID-19 [...] AM EDT documented as of this encounter Last Filed Vital Signs Vital Sign Reading Time Taken Comments Blood Pressure 118/68 11/23/2024 4:11 PM EST Pulse 78 11/23/2024 4:11 PM EST Temperature 37.2 C (98.9 F) 11/23/2024 4:11 PM ES T Respiratory Rate - - Oxygen Saturation 96% 11/23/2024 4:11 PM EST Inhaled Oxygen Concentration - - Weight 69.2 kg (152 lb 8 oz) 11/23/2024 4:11 PM EST Height 157.5 cm (5' 2") 11/23/2024 4:11 PM EST Body Mass Index 27.89 11/23/2024 4:11 PM EST documented in this encounter Functional Status * Are you deaf or do you have serious difficulty hearing? Answer Date of Assessment Author No 10/28/2018 5:00 PM EST Noemy Jay RN * Are you blind or do [...] Noemy Bee RN documented in this encounter Progress Notes * Lindsey Callahan PA-C - 11/23/2024 4:11 PM EST Preoperative Risk Assessment Note NAME: Malinda Kenney : 1945 DATE: 11/23/2024 Preoperative Risk Assessment Note Referred by: Dr. Alfonso Pre-operative evaluation for: R total knee replacement. Date of procedure: 11/27/24. Brief History of Present Illness: Malinda Kenney 79 year old female has a past medical history of C. difficile colitis, Diverticulitis, Generalized convulsive epilepsy without intractable epilepsy (HCC), Glaucoma, Osteoporosis, and T12 compression fracture (HCC). Major Risk Factors for Cardiac Events: History of PR, cardiac revascularization, cardiac bypass: No History of cerebrovascular accident or TIA: Yes, possible TIA in 2023. No history of CVA. History of systolic heart failure: No History of insulin-dependent diabetes: No History of chronic kidney disease (creatinine greater than 2): No Anesthesia History: Anesthesia reaction: Yes, hypotensive after L knee replacement History of surgical complications: Denies Personal history of venous thromboembolic disease: Denies Functional Assessment: They can walk up a flight of stairs. The patient's functional status is adequate (equal to 4 METS). Can take care of self, such as eat, dress, or use the toilet=1MET Can walk to block or go up a flight of steps=4 METs Can do heave housework=4-10 METs Can participate in strenuous sports=>10 METs} Obstructive Sleep Apnea: History of CEDRIC? No Current active medical problems: I have review and updated past medical history, past surgical history, past family history and social history. Current Outpatient Medications Medication Sig Dispense Refill Multiple Vitamins-Minerals (MULTIVITAMIN WOMEN 50+) TABS Take 1 Tab by mouth daily. vitamin b-complex/vitamin C (THERAPEUTIC B COMPLEX W/C) TABS Take 1 Tablet by mouth in the morning. Calcium Carbonate-Vitamin D 600-200 MG-UNIT Oral Tablet Take 1 Tablet by mouth in the morning. lactobacillus rhamnosus, GG, (CULTURELLE) Capsule Take 1 Cap by mouth 2 times a day. 30 Cap 0 Ascorbic Acid (VITAMIN C) 100 MG Tablet Take 1 Tablet by mouth in the morning. zoster vac recomb adjuvanted (SHINGRIX) 50 MCG/0.5ML injection Inject 0.5 mL into a large muscle now and repeat dose in 60 to 180 days 1 Each 1 Aspirin 81 MG Oral Tablet Chewable Take 1 Tablet by mouth in the morning. Latanoprost 0.005 % Ophthalmic Emulsion Instill 1 Drop into the right eye at bedtime. Triamcinolone Acetonide 0.1 % External Lotion (Aristocort) apply topically to affected areas on scalp daily. after 2 weeks use several times a week as needed 60 mL 0 methIMAzole 5 MG Oral Tablet (Tapazole) Take 1 Tablet by mouth in the morning. In the morning.. 90 Tablet 0 Pravastatin Sodium 20 MG Oral Tablet (Pravachol) Take 1 Tablet by mouth every evening. 1 daily 30 Tablet 5 Escitalopram Oxalate 10 MG Oral Tablet (Lexapro) TAKE 1 TABLET BY MOUTH EVERY MORNING 90 Tablet 3 levETIRAcetam 1000 MG Oral Tablet (Keppra) Take 1 Tablet by mouth in the morning and 1 Tablet before bedtime. No current facility-administered medications for this visit. Review of Systems: Review of Systems Constitutional: Negative for chills and fever. HENT: Negative for sore throat. Respiratory: Negative for cough and shortness of breath. Cardiovascular: Negative for chest pain. Gastrointestinal: Negative for diarrhea, nausea and vomiting. Genitourinary: Negative for dysuria and hematuria. Neurological: Negative for headaches. Physical exam: BP 118/68 | Pulse 78 | Temp 98.9 F (37.2 C) | Ht 5' 2" (1.575 m) | Wt 152 lb 8 oz (69.2 kg) | SpO2 96% | BMI 27.89 kg/m | BSA 1.74 m Physical Exam Constitutional: General: She is not in acute distress. Appearance: She is not diaphoretic. HENT: Right Ear: Tympanic membrane, ear canal and external ear normal. Left Ear: Tympanic membrane, ear canal and external ear normal. Mouth/Throat: Mouth: Mucous membranes are moist. Pharynx: Oropharynx is clear. Cardiovascular: Rate and Rhythm: Normal rate and regular rhythm. Pulmonary: Effort: Pulmonary effort is normal. Breath sounds: Normal breath sounds. Abdominal: General: Bowel sounds are normal. Palpations: Abdomen is soft. Musculoskeletal: Cervical back: Normal range of motion and neck supple. Skin: General: Skin is warm and dry. Neurological: General: No focal deficit present. Mental Status: She is alert. Mental status is at baseline. I have reviewed most recent labs and EKG. 1. Pre-op exam 2. Primary osteoarthritis of one knee, right Revised Cardiac Risk Index (RCRI): 1. High-risk type of surgery (examples include vascular and any open intraperitoneal or intrathoracic procedures). No 2. History of ischemic heart disease (history of myocardial infarction or positive exercise test, current compliant of chest pain considered to be secondary to myocardial ischemia, use of nitrate therapy, or ECG with pathological Q waves; do not count prior coronary revascularization procedure unless one of the other criteria for ischemic heart disease is present). No 3. History of heart failure. No 4. History of cerebrovascular disease. Yes, history of possible TIA. 5. Diabetes mellitus requiring treatment with insulin. No 6. Preoperative serum creatinine >2.0. No Pt has revised cardiac index score of One Risk Factor- 1.0% (95% CI: 0.5-1.4) for the surgery scheduled. Patient is intermediate for the listed procedure. Lindsey Callahan PA-C 11/23/2024 4:11 PM documented in this encounter Nursing Notes * Ama Shearer CCMA - 11/23/2024 4:09 PM EST Pt is here for pre op for right knee replacement on Saturday10/27/24 documented in this encounter Plan of Treatment Upcoming Encounters Date Type Department Care Team (Late st Contact Info) Description 04/06/2025 3:00 PM EDT Imaging Radiology [facility] [address] [place] [phone] 07/21/2025 3:40 PM EDT Office Visit Rheumatology [facility] [address] [place] [phone] Lopez Loyola MD [address] [facility] [facility] [place] [address] Scheduled Procedures Name Priority Associated Diagnoses Date/Ti [...] D LEVEL ONCE IN A LIFETIME-USE SMARTSET# [id number] Completed 07/28/2024, 05/21/2019 Cologuard Discontinued Fecal Occult [...] this encounter Medical Devices Implanted Type Area Auditor In Charge Device Identifier Shelf Expiration Date Model / Serial / Lot Iol Implanted:Qty: 1 on 06/30/2020 by Shaheen De Souza MD at OR [facility] Left: Eye 12/18/2024 [id number] / [id number] / Lens Intraoc 18.0 - [id number] - [id number] Implanted:Qty: 1 on 07/14/2020 by Shaheen De Souza MD at OR [facility] Right: Eye [employer] 02/17/2025 [id number] / [id number] / documented as of this encounter Visit Diagnoses Diagnosis Pre-op exam- Primary Preoperative examination, unspecified Primary osteoarthritis of one knee, right documented in this encounter Advance Directives * [...] the patient have Health Care Power of Acid Mixer? Yes, in chart and reviewed as current [...] Power of Attor lesly? No Care Teams Fashion Buyer Relationship Specialty Start Date End Date Elvia Rodriguez MD [address] [facility] [place] [address] PCP - General Internal Medicine 06/11/19 documented as of this encounter
--- OUTSIDE RECORDS SUMMARY | 2024-11-27 06:18 | External Medical Summary | Summary of Care ---
Author Name Unknown Organization [facility] Address [address] [place] [address] Phone [phone] Care Team Providers Care Lumber Loader Name Role Phone Elvia Rodriguez MD Primary Care Provider + Encounter Details Date Type Department Care Team (Late st Contact Info) Description 11/12/2024 Orders Only General Internal Medicine [facility] [address] [facility] [place] [phone] Elvia Rodriguez MD [address] [place] [address] Allergies Active Allergy Reactions Criticality Noted Date [...] Description 04/06/2025 3:00 PM EDT Imaging Radiology [facility] [address] [place] [phone] 07/21/2025 3:40 PM EDT [facility] [address] [place] [phone] Lopez Loyola MD [facility] [place] [address] Scheduled Procedures Name Priority Associated Diagnoses Date/Ti [...] D LEVEL ONCE IN A LIFETIME-USE SMARTSET# [id number] Completed 07/28/2024, 05/21/2019 Cologuard Discontinued Fecal Occult [...] this encounter Medical Devices Implanted Type Area Special Education Educational Assistant Device Identifier Shelf Expiration Date Model / Serial / Lot Iol Implanted:Qty: 1 on 06/30/2020 by Shaheen De Souza MD at OR [facility] Left: Eye 12/18/2024 [id number] / [id number] / Lens Intraoc 18.0 - [id number] - [id number] Implanted:Qty: 1 on 07/14/2020 by Shaheen De Souza MD at OR [facility] Right: Eye [employer] LOMB 02/17/2025 [id number] / [id number] / documented as of this encounter Procedures Procedure Name Priority Date/Time Associated Diagnosis Comments CHEMISTRY-OUTSIDE Routine 11/10/2024 XR CHEST 1 VIEW Routine 09/23/2024 documented in this encounter Results * (ABNORMAL) CHEMISTRY-OUTSIDE (11/10/2024) Not all results display below - see scan for full detail SCAN INCLUDES: PT INR, PTT, CBCD, BMP OUTSIDE LAB (SEE SCANNED REPORT) CREATININE 0.82 0.6 - 1.2 MG/DL OUTSIDE LAB (SEE SCANNED REPORT) EGFR 73.63 OUTSIDE LA B (SEE SCANNED REPORT) POTASSIUM 4.2 3.5 - 5.1 MMOL/L OUTSIDE LAB (SEE SCANNED REPORT) GLUCOSE 100(A) 70 - 99 MG/DL OUTSIDE LAB (SEE SCANNED REPORT) HOURS FASTING OUTSID E LAB (SEE SCANNED REPORT) TRIGLYCERIDES-OUT SIDE LAB OUTSIDE LAB (SEE SCANNED REPORT) CHOLESTEROL-OUTSI DE LAB OUTSIDE LAB (SEE SCANNED REPORT) HDL-OUTSIDE LAB OUTS ABBIE LAB (SEE SCANNED REPORT) CHOL/HDL RATIO-OUTSIDE LAB OUTSIDE LA B (SEE SCANNED REPORT) LDL (CALCULATED)-OUTS ABBIE LAB OUTSIDE LAB (SEE SCANNED REPORT) LDL (DIRECT MEASURE)-OUTSIDE LAB OUTSIDE LAB (SEE SCANNED REPORT) HEMOGLOBIN, [id number] LAB OUTSIDE LAB (SEE SCANNED REPORT) PHOSPHORUS-OUTSID E LAB OUTSIDE LAB (SEE SCANNED REPORT) PTH-OUTSIDE LAB OUTS ABBIE LAB (SEE SCANNED REPORT) MICROALBUMIN RATIO-OUTSIDE LAB OUTSIDE LA B (SEE SCANNED REPORT) PROTEIN, UA-OUTSIDE LAB OUTSIDE LAB (SEE SCANNED REPORT) HGB 14.3 12.0 - 16.0 G/DL OUTSIDE LAB (SEE SCANNED REPORT) 11/10/2024 us Lopez Alfonso DO LABORATORY Final Res ult OUTSIDE LAB (SEE SCANNED REPORT) * XR CHEST 1 VIEW (09/23/2024) Anatomical Region Laterality Modality Chest Other 09/23/2024 us History Per Patient RADIOLOGY (RAD GENERAL) Linsey l Result documented in this encounter Advance Directives * [...] the patient have Health Care Power of Hooker Off? Yes, in chart and reviewed as current [...] Power of Attor lesly? No Care Teams Lumber Loader Relationship Specialty Start Date End Date Elvia Rodriguez MD [address] [facility] [place] [address] PCP - General Internal Medicine 06/11/19 documented as of this encounter
--- OUTSIDE RECORDS SUMMARY | 2024-11-27 06:18 | External Medical Summary | Summary of Care ---
Author Name Unknown Organization [facility] Address [address] [place] [address] Phone [phone] Care Team Providers Care Director Television News Name Role Phone Elvia Rodriguez MD Primary Care Provider + Encounter Details Date Type Department Care Team (Late st Contact Info) Description 09/23/2024 Result Scan Unspecified Department <No scans attached> Allergies Active Allergy Reactions Criticality Noted Date [...] 1 daily 30 Tablet 5 4 Active documented as of this encounter (statuses [...] Description 04/06/2025 3:00 PM EDT Imaging Radiology [facility] [address] [place] [phone] 07/21/2025 3:40 PM EDT Office Visit Rheumatology [facility] [address] [place] [phone] Lopez Loyola MD [address] [facility] [place] [address] Scheduled Procedures Name Priority Associated Diagnoses Date/Ti [...] D LEVEL ONCE IN A LIFETIME-USE SMARTSET# 67472 Completed 07/28/2024, 05/21/2019 Cologuard Discontinued Fecal Occult [...] this encounter Medical Devices Implanted Type Area Pipefitter Welder Device Identifier Shelf Expiration Date Model / Serial / Lot Iol Implanted:Qty: 1 on 06/30/2020 by Shaheen De Souza MD at OR [facility] Left: Eye 12/18/2024 [id number] / [id number] / Lens Intraoc 18.0 - [id number] - [id number] Implanted:Qty: 1 on 07/14/2020 by Shaheen De Souza MD at OR [facility] Right: Eye BAUSCH [employer] LOMB 02/17/2025 [id number] / [id number] / documented as of this encounter Procedures Procedure Name Priority Date/Time Associated Diagnosis Comments EKG SCANNED RESULT 09/23/2024 documented in this encounter Results * EKG SCANNED RESULT (09/23/2024) 09/23/2024 us No Physician Data Unknown EKG Final Result documented in this encounter Advance Directives [...] the patient have Health Care Power of Leather Seasoner? Yes, in chart and reviewed as current [...] Power of Attor lesly? No Care Teams Director Television News Relationship Specialty Start Date End Date Elvia Rodriguez MD [address] [place] [address] [place] [address] PCP - General Internal Medicine 06/11/19 documented as of this encounter
--- OUTSIDE RECORDS SUMMARY | 2024-11-27 06:18 | External Medical Summary | Summary of Care ---
Author Name Unknown Organization [facility] Address [address] [place] [address] Phone [phone] Care Team Providers Care Turf And Grounds Supervisor Name Role Phone Elvia Rodriguez MD Primary Care Provider + Reason for Visit * Reason Onset Date Comments Advice 11/24/2024 Encounter Details Date Type Department Care Team (Late st Contact Info) Description 11/24/2024 Telephone General Internal Medicine [facility] [address] [facility] [place] [address] Lindsey Callahan PA-C [address] [facility] [place] [address] Advice Allergies Active Allergy Reactions Criticality Noted Date Comments Bee Venom Edema Other 02/18/2017 "itching, red, swelling, but only at the place where I got stung" Clam Shell Diarrhea 04/24/2022 Pollen 08/14/2022 Unsure exactly what, but has some sort of seasonal allergy documented as of this encounter (statuses as of 11/26/2024) Medications Multiple Vitamins-Mineral s (MULTIVITAMIN WOMEN 50+) [...] morning and 1 Tablet before bedtime. Active documented as of this encounter (statuses [...] Noemy Bee RN documented in this encounter Miscellaneous Notes * Telephone Encounter - Lindsey Callahan PA-C - 11/26/2024 8:22 AM EST Note is addended. * Telephone Encounter - Jeaneth Stubbs OSA - 11/24/2024 3:53 PM EST [facility] called and said that in the pre-op clearance Lindsey Conyryan did on 11/23, it says the risk is indeterminate and it needs to say intermediate. Please correct and upload into EPIC. Thank you. documented in this encounter Plan of Treatment Upcoming Encounters Date Type Department Care Team (Late st Contact Info) Description 04/06/2025 3:00 PM EDT Imaging Radiology [facility] [address] [place] [phone] 07/21/2025 3:40 PM EDT Office Visit Rheumatology [facility] [address] [place] [phone] Lopez Loyola MD [facility] [place] [address] Scheduled Procedures Name Priority Associated Diagnoses Date/Ti [...] D LEVEL ONCE IN A LIFETIME-USE SMARTSET# [id number] Completed 07/28/2024, 05/21/2019 Cologuard Discontinued Fecal Occult [...] encounter Medical Devices Implanted Type Area Sales Planning Analyst Device Identifier Shelf Expiration Date Model / Serial / Lot Iol Implanted:Qty: 1 on 06/30/2020 by Shaheen De Souza MD at OR [facility] Left: Eye 12/18/2024 [id number] / [id number] / Lens Intraoc 18.0 - [id number] - [id number] Implanted:Qty: 1 on 07/14/2020 by Shaheen De Souza MD at OR [facility] Right: Eye BAUSCH & LOMB 02/17/2025 [id number] / [id number] / documented as of this encounter Advance [...] the patient have Health Care Power of Showplace Manager? Yes, in chart and reviewed as [...] Power of Attor lesly? No Care Teams Turf And Grounds Supervisor Relationship Specialty Start Date End Date Elvia Rodriguez MD [address] [facility] [place] [address] PCP - General Internal Medicine 06/11/19 documented as of this encounter
--- OUTSIDE RECORDS SUMMARY | 2024-11-27 06:18 | External Medical Summary | Summary of Care ---
Author Name Unknown Organization [facility] Address [address] [place] [address] Phone [phone] Care Team Providers Care Router Setter Name Role Phone Elvia Rodriguez MD Primary Care Provider + Reason for Visit * Reason Comments pre-op exam Encounter Details Date Type Department Care Team (Latest Contact Info) Description 11/23/2024 4:00 PM EST Office Visit General Internal Medicine [facility] [address] [facility] [place] [address] Lindsey Callahan PA-C [address] [facility] [place] [address] Pre-op exam*; Primary osteoarthritis of one knee, right Allergies Active Allergy Reactions Criticality Noted Date Comments Bee Venom Edema Other 02/18/2017 "itching, red, swelling, but only at the place where I got stung" Clam Shell Diarrhea 04/24/2022 Pollen 08/14/2022 Unsure exactly what, but has some sort of seasonal allergy documented as of this encounter (statuses as of 11/24/2024) Medications Multiple Vitamins-Minera ls (MULTIVITAMIN WOMEN 50+) [...] as of this encounter (statuses as of 11/24/2024) Active Problems Problem Noted Date Diagnosed Date [...] as of this encounter (statuses as of 11/24/2024) Resolved Problems Problem Noted Date Diagnosed Date Resolved Date Epilepsy 04/07/2019 10/29/2022 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 Patient is indeterminate for the listed procedure. Lindsey Callahan PA-C 11/23/2024 4:11 PM documented in this encounter Nursing Notes * Ama Shearer CCMA - 11/23/2024 4:09 PM EST Pt is here for pre op for right knee replacement on Saturday10/27/24 documented in this encounter Plan of Treatment Upcoming Encounters Date Type Department Care Team (Late st Contact Info) Description 04/06/2025 3:00 PM EDT Imaging Radiology [facility] [address] [place] [phone] 07/21/2025 3:40 PM EDT Office Visit Rheumatology [facility] [address] [place] [phone] Lopez Loyola MD [facility] [place] [address] Scheduled Procedures Name Priority Associated Diagnoses Date/Ti [...] D LEVEL ONCE IN A LIFETIME-USE SMARTSET# 09057 Completed 07/28/2024, 05/21/2019 Cologuard Discontinued Fecal Occult [...] this encounter Medical Devices Implanted Type Area Crew Director Device Identifier Shelf Expiration Date Model / Serial / Lot Iol Implanted:Qty: 1 on 06/30/2020 by Shaheen De Souza MD at OR [facility] Left: Eye 12/18/2024 [id number] / [id number] / Lens Intraoc 18.0 - [id number] - [id number] Implanted:Qty: 1 on 07/14/2020 by Shaheen De Souza MD at OR [facility] Right: Eye BAUSCH & LOMB 02/17/2025 [id number] / [id number] / documented as of this encounter Visit [...] the patient have Health Care Power of Architectural Inspector? Yes, in chart and reviewed as current [...] 6:54 PM 02/20/2017 5:31 PM This order re flects the patients wishes and were consensually agreed upon. Question Answer Comments Discussion of Advance Directives occurred with: Patient Does the patient have a Living Will? No Does the patient have Health Care Power of Attor lesly? No Care Teams Router Setter Relationship Specialty Start Date End Date Elvia Rodriguez MD [address] [facility] [place] [address] PCP - General Internal Medicine 06/11/19 documented as of this encounter
[2024-11-27] MEDS ORDERED: LIDOCAINE 2% 2 ML VIAL/AMP(20MG/ML) INFIL ONE (06:30)
[2024-11-27] MEDS ORDERED: ePHEDrine sulfate 50 MG/ML AMP ONE (06:31)
[2024-11-27] MEDS ORDERED: SODIUM CHLORIDE 0.9% PF INJ 10 ML VIAL ONE (06:31)
[2024-11-27] MEDS ORDERED: PROPOFOL IV EMULSION 10 MG/ML 20 ML VIAL IV ONE (06:31)
[2024-11-27] MEDS ORDERED: MIDAZOLAM HCL 1 MG/ML 2ML VIAL ONE (06:31)
[2024-11-27] MEDS: dexAMETHasone**PF** 10 MG/ML VIAL IV SCH (07:03)
[2024-11-27] MEDS: LR 60ML/HR IV SCH (07:03)
[2024-11-27] MEDS: ACETAMINOPHEN 500 MG TAB PO SCH ×2 (07:03→14:51)
[2024-11-27] MEDS: FAMOTIDINE 20 MG TAB PO SCH (07:03)
[2024-11-27] MEDS: GABAPENTIN 300 MG CAP PO SCH (07:03)
[2024-11-27] MEDS ORDERED: ONDANSETRON INJ 2 MG/ML 2 ML VIAL IV PRN ×2 (07:08→12:31)
[2024-11-27] MEDS ORDERED: ePHEDrine sulfate 50 MG/ML AMP IV PRN (07:08)
[2024-11-27] MEDS ORDERED: fentaNYL citrate PF 100 MCG/2 ML VIAL IV PRN (07:08)
[2024-11-27] MEDS ORDERED: ATROPINE SULFATE 0.1 MG/ML 10ML SYR IV PRN (07:08)
[2024-11-27] MEDS: LR 500ML BOLUS, THEN 15ML/HR IV SCH (07:35)
[2024-11-27] MEDS ORDERED: ALBUMIN HUMAN 5% 12.5 GM/250 ML VIAL IV ONE (07:42)
[2024-11-27] MEDS ORDERED: BUPIVACAINE 0.5 % 5 MG/1 ML PF 10ML VIAL ONE (07:43)
[2024-11-27] MEDS: TRANEXAMIC ACID 1,000 MG **IV Pre-op IV SCH (07:49)
[2024-11-27] MEDS ORDERED: BUPIVACAINE 0.25% PF 30 ML VIAL ONE (07:49)
--- NOTE | 2024-11-27 07:57 | History & Physical Bridge Note ---
Date of Service November 27, 2024 History & Physical Bridge Note I have examined the patient, reviewed the History & Physical and in the interval since the performance of the History & Physical I have noted the following changes of clinical significance: no changes noted
[2024-11-27] MEDS: ceFAZolin 2000MG 2,000 MG/15 ML SYR IV SCH (08:03)
[2024-11-27] MEDS: ORTHO JOINT ANESTHETIC ONE (08:30)
[2024-11-27] MEDS: ROPIV 0.5% 246mg, Ketorolac 30mg, EPINEPHrine 0.5mg in NSS INFIL SCH (08:30)
[2024-11-27] MEDS ORDERED: ONDANSETRON INJ 2 MG/ML 2 ML VIAL ONE (08:33)
[2024-11-27] MEDS: TRANEXAMIC ACID 1,000 MG **IV Intra-op IV SCH (08:52)
[2024-11-27] MEDS ORDERED: PHENYLEPHRINE 100MCG/ML 5ML SYR ONE (08:54)
--- NOTE | 2024-11-27 09:04 | Operative Report ---
PG Post Operative Report Pre & Post Diagnosis Operation Date: 11/27/24 08:00 Pre-Op Diagnosis: Right Knee Osteoarthritis Post-Op Diagnosis: Right Knee Osteoarthritis I identified the patient and participated in the time-out.: Yes Procedure Operation Date: 11/27/24 08:00 Actual Procedures p Right Total Knee Arthroplasty(Right) - Lopez Alfonso DO Surgeon Lopez Alfonso DO Appeals Analyst Roddy Gauthier PA-C Estimated Blood Loss 50 Findings Consistent with Post-Op Diagnosis Specimens Right femoral and tibial bone Description of Procedure Implants used: I used a Yuridia Persona total knee arthroplasty system with a size 7 standard CR femur, D tibia, 28 oval patella, and a size 12 medial congruent polyethylene bearing. All components were cemented in place with Biomet cement. Malinda arrived [facility] for the above procedure. She was seen in the preoperative holding area and the operative extremity was identified and signed. She was given a preoperative antibiotic, TXA, a spinal anesthetic and an adductor nerve block. She was taken back to the operating room and laid on the table in supine position. She was given basic sedation. The operative knee was then prepped and draped in sterile fashion. A timeout was done, and the patient and the operative extremity was properly identified. A midline incision was made directly over the patella. Dissection was taken down to the extensor mechanism. A medial parapatellar arthrotomy was used. The medial retinaculum was released and the fat pad was mostly excised. The knee was flexed and the ACL, PCL, and meniscus were removed. A drill was sent down the center of the femoral canal followed by an intramedullary matty. Off that matty a distal femoral cutting block was placed. 9 mm was resected off the distal femur at 5 of valgus. A posterior referencing AP sizing guide was then placed on the distal femur. The femur measured to be a size 7. 2 drill holes were placed in 3 of external rotation. A 4-in-1 cutting block was then impacted into place. Anterior, posterior, and chamfer cuts were then made. The proximal tibia was then exposed. An external tibial alignment guide was placed. A tibial cut guide was then anchored in place and the proximal tibia was then resected. The posterior aspect of the knee was then opened up and any additional meniscus fragments and osteophytes were removed. The tibia measured to be a size D. The tibial plate was then placed in the appropriate rotation and the tibia was drilled and punched. Trial components were then placed. I used a size 12 medial congruent polyethylene insert. The knee was brought through a full range of motion and felt to be stable. The peg holes for the femoral component were then drilled. The patella was then everted and 9 mm was resected off the posterior aspect of the patella. The patella measured to be a size 28 oval. 3 peg holes were then drilled. A trial patella was placed. The knee was once again brought through a full range of motion and felt to be stable. Trial components were then removed. The surrounding soft tissues were injected with 100 cc of an orthopedic pain control cocktail. All components were then cemented into place with Biomet cement. The final polyethylene insert was then snapped into place. Once cement was dry the tourniquet was deflated. Hemostasis was obtained. A dilute betadyne lavage was then done for 3 minutes. The joint was then irrigated with normal saline solution. The medial parapatellar arthrotomy was then closed with #1 Vicryl suture. The skin was closed with 2-0 Vicryl, 3-0V lock suture, and maya. A soft compressive dressing was placed. She was then transferred to a hospital bed and taken to the postanesthesia care unit in stable condition. She tolerated the procedure well. Roddy Gauthier PA-C, was present for the entire procedure. He was critical for patient positioning, prepping, draping, retraction exposure, wound closure and application of sterile dressing. I attest to the content of the Intraoperative Record and any orders documented therein. Any exceptions are noted below.
--- NOTE | 2024-11-27 09:33 | XRay Report ---
XR knee RT 1 or 2V routine CLINICAL HISTORY: Surgical Post Op COMPARISON: 06/29/2024 FINDINGS: Interval right knee prosthesis shows no hardware complication. There is expected soft tiss ue gas. Skin maya are present. IMPRESSION: Unremarkable postoperative exam. ACT 112: Negative or not required by law. Electronically signed by: Timbo Freed M.D. 11/27/2024 9:32 AM
[2024-11-27] MEDS ORDERED: METOCLOPRAMIDE HCL INJ 5 MG/ML 2 ML VIAL IV PRN (12:31)
[2024-11-27] MEDS ORDERED: bisacodyL 10 MG SUPP PR PRN (12:31)
[2024-11-27] MEDS ORDERED: NALOXONE HCL 0.4 MG/1 ML VIAL/CARP IV PRN (12:31)
[2024-11-27] MEDS ORDERED: MAGNESIUM HYDROXIDE SUSP 30 ML UDC PO PRN (12:31)
[2024-11-27] MEDS ORDERED: HYDROmorphone INJ 0.5 MG/0.5 ML SYR IV PRN (12:31)
[2024-11-27] MEDS ORDERED: oxyCODONE HCL IR 5 MG TAB (IMMEDIATE RELEASE) PO PRN (12:31)
--- NOTE | 2024-11-27 14:27 | Anesthesiology Progress Note ---
Date of Service November 27, 2024 Anesthesia Post Procedure Vital Signs Vital Signs: Temp Pulse Pulse Resp BP Pulse Ox O2 Del Method 11/27/24 13:00 36.7 C 92 H 20 110/60 97 Nasal Cannula 11/27/24 12:30 95 H 22 106/59 L 97 Nasal Cannula 11/27/24 12:00 94 H 17 109/62 98 Nasal Cannula 11/27/24 11:30 91 H 16 108/61 98 Nasal Cannula 11/27/24 11:15 92 H 18 104/58 L 95 Nasal Cannula 11/27/24 11:00 91 H 20 107/59 L 91 Room Air 11/27/24 10:45 91 H 17 107/57 L 92 Room Air 11/27/24 10:30 92 H 15 105/59 L 92 Room Air 11/27/24 10:20 89 16 120/59 L 93 Room Air 11/27/24 10:10 91 H 17 116/62 92 Room Air 11/27/24 10:00 90 21 109/60 95 Room Air 11/27/24 09:50 89 17 112/59 L 93 Room Air 11/27/24 09:40 90 15 112/61 93 Room Air 11/27/24 09:30 89 12 110/67 96 Room Air 11/27/24 09:22 36.7 C 92 H 18 111/58 L 96 Oxymask 11/27/24 06:52 36.6 C 78 20 121/70 97 Room Air O2 Flow Rate 11/27/24 13:00 2 11/27/24 12:30 2 11/27/24 12:00 2 11/27/24 11:30 2 11/27/24 11:15 2 11/27/24 11:00 11/27/24 10:45 11/27/24 10:30 11/27/24 10:20 11/27/24 10:10 11/27/24 10:00 11/27/24 09:50 0 11/27/24 09:40 0 11/27/24 09:30 0 11/27/24 09:22 8 11/27/24 06:52 Transfer of Care Handoff Completed per policy Notes Mental Status: alert / awake / arousable and participated in evaluation Patient Amnestic to Procedure: Yes Nausea / Vomiting: adequately controlled Pain: adequately controlled Airway Patency, RR, SpO2: stable & adequate BP & HR: stable & adequate Hydration State: stable & adequate Neuraxial Anesthesia: was administered and sensory block is resolving Anesthetic Complications: no major complications apparent and Pt Satisfied with anesthetic care
[2024-11-27] MEDS: KETOROLAC TROMETHAMINE 15 MG/ML VIAL IV SCH (14:52)
[2024-11-27] MEDS: ceFAZolin 1000MG 1,000 MG/7.5 ML SYR IV SCH (18:03)
[2024-11-27] MEDS: DOCUSATE SODIUM 100 MG CAP PO SCH (20:50)
[2024-11-27] MEDS: SENNA 8.6 MG TAB PO SCH (20:50)
[2024-11-27] MEDS: ASPIRIN 81 MG ECTAB PO SCH (20:50)
[2024-11-27] MEDS: ESCITALOPRAM OXALATE 10 MG TAB PO SCH (20:50)
[2024-11-27] MEDS: PRAVASTATIN SOD 20 MG TAB PO SCH (20:51)
[2024-11-27] MEDS: levETIRAcetam 500 MG TAB PO SCH (20:51)
[2024-11-27] MEDS: LATANOPROST 0.005% OP SOLN 2.5 ML BTL OPR SCH (21:26)
--- NOTE | 2024-11-28 07:51 | Orthopedic Progress Note ---
Date of Service November 28, 2024 Assessment & Plan (1) Status post right knee replacement: Overall she is doing very well. She is not having much pain in the right knee. She will be seen by physical therapy today for ambulation and range of motion exercises. The nursing staff can change her dressing after physical therapy. We will continue to monitor her hypotension. As long as she is asymptomatic, she can be discharged to home later today after therapy. She is on aspirin for DVT prophylaxis. Flakita Petty was seen and examined at bedside this morning. Overall she is doing very well. She is not having much pain in the right knee. She has been up and ambulating to the bathroom. She has no complaints.. Review of Systems All systems reviewed & are unremarkable except as noted in HPI & below. Physical Exam On physical exam of the right knee, the dressing is clean and dry. Her leg is out full extension. She has active dorsiflexion plantarflexion of her right ankle.. Results & Data Results & Data Laboratory Results . Diagnostic Findings Postoperative x-rays of the right knee show the prosthesis to be in anatomic alignment without any evidence of fracture complication, or loosening.. PG Care Time/CCT Total # of Minutes Spent Total Time Spent with Patient: Total time spent is greater than 50% in coordination of care (as documented) at patient's floor/unit and/or counseling patient: Coding Level of Care Code 77451 Post Operative Follow-Up Diagnoses Status post right knee replacement Z96.651
--- NOTE | 2024-11-28 07:52 | Discharge Summary ---
Date of Service November 28, 2024 Principal Diagnosis Same as "Discharge Diagnosis" noted below under Discharge Instructions. Discharge Exam On physical exam of the right knee, the dressing is clean and dry. Her leg is out full extension. She has active dorsiflexion plantarflexion of her right ankle.. Discharge Data Procedures Performed Operation Date: 11/27/24 08:00 Actual Procedures p Right Total Knee Arthroplasty(Right) - oLpez Alfonso DO Ordered Studies 11/27/24 05:00 US - OR guided needle placemen Routine Hospital Course (1) Status post right knee replacement: On November 27, 2024 Malinda arrived at [facility] and underwent a right knee replacement without complication. She had a spinal anesthetic. Postoperatively she was started on aspirin for DVT prophylaxis and transferred to the general orthopedic floors. Her hospital course was uneventful. On postop day #1, she was a little bit hypotensive but her pain was well- controlled. She was able to participate well with physical therapy doing ambulation and range of motion exercises. She was then discharged to home. She will follow-up with orthopedics in 2 weeks. PG Care Time/CCT Total # of Minutes Spent Total Time Spent with Patient: Total time spent is greater than 50% in coordination of care (as documented) at patient's floor/unit and/or counseling patient: Discharge Plan Discharge Items Patient Disposition: Home - Self-Care Reason For Visit: Arthritis Knee Right Discharge Diagnosis: Right knee replacement Activity: Per Instructions section Non-emergency contact: Surgeon Call non-emergency contact if: your wound has increased redness and your wound has increased drainage Follow-up/Referrals: Elvia Rodriguez MD [Primary Care Provider] - Diet: Regular Addtl Attending Provider Instructions: Activity and Therapy Recommendations: * If you are using [facility] then therapy will be provided at your home until they feel you have accomplished all of your goals. * If you are using [facility] then Physical Therapy will be provided until they feel you are ready to start Outpatient Physical Therapy. * If you are not using home therapy then Outpatient Physical Therapy should start about 3-5 days from your day of surgery. Therapy will last about 6-10 weeks * It is important not to put a pillow under your knee when you are relaxing or sleeping. It is just as important to make sure you are getting your knee perfectly straight as it is to regain your knee bend. * You were shown a series of exercises in the hospital. Do these exercises three times each day including the exercises you were shown in physical therapy. * Get up and walk several times each day. For the first four weeks, try not to stand or walk for more than one hour at a time. If you do stand or walk for more than one hour, you will not hurt anything, but your leg will likely swell. * As you feel comfortable, you may change from the walker or crutches to a cane and then to independent walking. Medications: * Narcotic You will likely be sent home from the hospital with a prescription for the narcotic pain medication that worked best throughout your stay. * Cefadroxil -take the antibiotic twice a day for 10 days to help prevent infection. * Aspirin Most patients will be required to take Aspirin 81mg twice a day for 6 weeks after surgery. This is obtained [id number] and a prescription is not necessary. * Other medications may be prescribed for specific circumstances. If you have any questions, please call the office at . * Resume previous home medications unless otherwise instructed TEDs/Elastic Stockings: The white elastic stockings help limit swelling and prevent blood clots from forming in your legs.~ The more you wear them, the more they work. Wear them for six weeks. Dressing Care: The dressing can be changed after physical therapy on postop day #1. Daily dry dressing changes for a few days, especially if the incision is still draining some. If the incision is not draining then you may leave the maya open to air. If there is a little bit of drainage or if the maya are getting stuck on your clothing then cover the incision with a dry dressing. The maya will be removed at your 2 week follow-up appointment. Showering: You may shower 5 days from the day of surgery as long as the incision is no longer draining. You may shower with the maya exposed. Let soapy water run over the maya and pat them dry. Do not scrub or soak the incision. Diet: You may resume your previous diet. Things To Watch For: * Drainage from the incision site that occurs more than one week after your surgery. * Increased redness at the incision site. * Fever above 102 degrees Fahrenheit. * Unusual chest pain or shortness of breath. * Call [facility] at with any of the above problems Follow-Up Visit: Follow-up with Dr. Alfonso's office 2-3 weeks after your day of surgery. We will remove your maya and answer any questions. If you have any additional questions or concerns, Dr Alfonso is usually in the office at the same time and will be available An appointment was probably scheduled when you signed-up for surgery in the office. If you have any questions call Office Instructions: More detailed instructions as well as Frequently Asked Questions were provided in a folder by our office when you signed-up for surgery. Please review these instructions when you get home. If you have any further questions or concerns, please feel free to call the office at [phone] Pending Studies at Discharge: No Stand-Alone Forms: [facility], Smoking Cessation Medications and DC Order Prescriptions: New cefadroxil 500 mg capsule 500 mg PO BID 10 Days Qty: 20 0RF oxycodone 5 mg tablet 5 mg PO Q6H PRN (Reason: pain) Qty: 30 0RF cyclobenzaprine 10 mg tablet 10 mg PO BID PRN (Reason: muscle spasm) Qty: 20 0RF Continued escitalopram oxalate 10 mg tablet 10 mg PO HS pravastatin 20 mg tablet 20 mg PO HS levetiracetam 1,000 mg tablet 1,000 mg PO BID 30 Days Qty: 60 5RF methimazole 5 mg Tablet 5 mg PO QAM Advanced Probiotic 625 mg (10 billion cell) capsule 1 cap PO QPM latanoprost 0.005 % drops 1 drp OPR HS olopatadine 0.1 % Drops 1 drp OPB DAILY PRN (Reason: allergies) vitamin B complex Tablet 1 tab PO DAILY multivitamin with minerals Tablet 1 tab PO DAILY calcium carbonate-vitamin D3 [Calcium 500 + D] 500 mg-5 mcg (200 unit) Tablet 1 tab PO BID Changed aspirin 81 mg tablet,delayed release (DR/EC) 81 mg PO BID 42 Days Qty: 0 0RF Discharge Orders: Discharge Order (Routine); Ordered 11/28/24 Ordered By: Lopez Alfonso Admission Data Admit Date/Time: 11/27/24 09:23 Attending Provider: Lopez Alfonso Admit Provider: Lopez Alfonso Primary Care Provider: Elvia Rodriguez
[2024-11-28 08:21] VITALS: BP 102/66; PULSE 78; RESP 18; TEMP 97.5; O2SAT 99
[2024-11-28] MEDS: dexAMETHasone 4 MG TAB PO SCH (09:57)
[2024-11-28] MEDS: methIMAzole 5 MG TABLET PO SCH (09:58)
[2024-11-28] MEDS: MULTIVITAMIN TAB PO SCH (09:58)
== END 2024-11-28 12:30 | disposition home or self-care (01) ==
LOC: ASU 06:13 → PACUINP 06:13 → 3E 13:34

== ENCOUNTER 2024-11-29 10:52 | Inpatient (IN) ==
[2024-11-29] MEDS: SODIUM CHLORIDE 0.9% 500 ML IV ONE (11:41)
[2024-11-29 12:10] LABS: Basophils # (auto) 0.03 K/uL (0.00-0.20); Basophils % (auto) 0.3 %; Eosinophils # (auto) 0.02 K/uL (0.00-0.50); Eosinophils % (auto) 0.2 %; Hematocrit (blood only) 29.8 % (37.0-47.0); Immature Granulocytes # (auto) 0.05 K/uL (0.01-0.20); Immature Granulocytes % (auto) 0.5 %; Mean Corpuscular Hemoglobin 32.3 pg (25.0-34.0); Mean Corpuscular Hgb Conc 33.6 g/dL (32.0-36.0); Mean Corpuscular Volume 96.1 fL (80.0-100.0); Mean Platelet Volume 9.8 fL (9.4-12.4); Monocytes # (auto) 1.69 K/uL (0.11-0.59); Monocytes % (auto) 15.9 %; Neutrophils # (auto) 7.13 K/uL (1.40-6.50); Neutrophils % (auto) 67.1 %; Platelet Count 181 K/uL (130-400); RDW Coefficient of Variation 13.2 % (11.5-14.5); RDW Standard Deviation 46.3 fL (36.4-46.3); White Blood Count 10.62 K/ul (4.8-10.8)
[2024-11-29 12:24] LABS: Albumin Globulin Ratio 1.9 (0.9-2); Albumin Level 3.7 gm/dl (3.4-5.0); BUN Creatinine Ratio 35.3 (10-20); Bilirubin,Total 0.5 mg/dl (0.2-1.0); Calcium 8.2 mg/dl (8.6-10.3); Creatinine Clr Calc Pharmacy 65.9 ml/min; Potassium 4.1 mmol/L (3.5-5.1); Total Protein 5.7 gm/dl (6.0-8.3)
[2024-11-29 12:30] LABS: Troponin I High Sensitivity 4.1 pg/ml (0-14)
--- NOTE | 2024-11-29 12:38 | Emergency Department Note ---
Impression & Plan Dizziness, S/P total knee replacement ED Provider Note CHIEF COMPLAINT: Dizziness HISTORY OF PRESENT ILLNESS: This 79-year-old female patient past medical history of with right knee replacement 2 days ago, anxiety, seizure disorder, hypothyroidism, hypotension presents to the emergency department with complaints of low blood pressures and dizziness. The patient has been taking Tylenol and Oxy intermittently for pain. She woke up this morning quite dizzy, daughter measured her blood pressure in the 70s at 1 point. Patient felt as though she may pass out, but did not. She denies chest pain, shortness of breath, abdominal pain, vomiting or diarrhea. REVIEW OF SYSTEMS: A review of systems was performed with positives and pertinent negatives listed in the history of present illness. 10 systems were reviewed and are otherwise negative. ALLERGIES: see below MEDICATIONS: see below PMH: see below SOCIAL HISTORY: see below DDx: Dehydration, kidney injury, medication effect, electrolyte abnormality, UTI, pneumonia among others. PHYSICAL EXAM: Vital signs reviewed. General: Well-appearing 79-year-old female, in no significant distress. HEENT: No scleral icterus, PERRLA, neck supple. Moist mucous membranes. Cardiovascular: Regular rate and rhythm, no extra sounds. Pulmonary: Clear to auscultation bilaterally, normal work of breathing. Abdomen: Soft, nontender, nondistended, positive bowel sounds. Musculoskeletal: Postsurgical change noted to the right knee with a dry dressing in place under a Hung stocking. Minimal distal swelling. Neurologic: Patient awake alert and oriented x 3, speech is clear Skin: Warm, dry, no rash EMERGENCY DEPARTMENT COURSE/MDM: This patient was evaluated and appeared to be in no significant distress. IV access was obtained and laboratory work was drawn. Patient's vital signs remained stable, including orthostatics. She did receive 500 cc of normal saline solution. Patient began to complain of discomfort and was given 2 mg of IV morphine and Zofran she had missed her scheduled medications. She had ambulated to the bathroom several times. Laboratory work was reassuring, hemoglobin is 10 down from 14.3, however that was preoperatively. Patient did have an episode of hypotension with systolics in the 70s after several hours in the emergency department. The etiology of the hypotension is unclear at this time however suspected to be analgesic related. She did recover quickly however daughter felt uncomfortable with the plan for discharge. At this time the patient will be evaluated for admission and further management. I do not suspect any issues with infection at this time. Patient and daughter were aware of the plan for admission and agreed. Hospitalist service was contacted for further management. MONITORING: An order for cardiac monitoring was placed and the patient is noted to be in a normal sinus rhythm 71 beats per minute. RADIOLOGY: KUB reveals no evidence of bowel obstruction or free air. EKG: To my interpretation reveals a normal sinus rhythm at 74 bpm, normal ST segments. QTc of 435. No PVC, PAC. DISPOSITION: Admission Past Med/Surg History Problem List Hypotension S/P total knee replacement (Acute) Dizziness (Acute) Status post right knee replacement (~11/2024) Prepatellar bursitis, left knee Encounter for pre-operative examination Anxiety Osteoarthritis of right knee Seizure disorder Osteoporosis Hyperthyroidism Medical History Vasovagal episode Hx Hyperthyroidism Taking Methimazole Tachycardia (09/2024) [facility] ER visit > discussed f/u with PCP + neuro (recent 72 hour heart monitor mentioned) Osteoporosis Anxiety History of TIAs (2021) Possible [place] [facility] [place] Seizure disorder Most recent seizure 10+ years ago Taking Levetiracetam [place] [facility] [place] Osteoarthritis Multinodular goiter Arthritis Hiatal hernia Diverticular disease Hx of basal cell carcinoma s/p excision Glaucoma B/L Surgical History History of anesthesia reaction Difficulty waking & low BP requiring additional days stay during left knee surgery 2022 History of total left knee replacement (TKR) (06/28/23) Left TKA (06/28/23): SAB at L3/4 (1 attempt) + regional at [facility] History of tonsillectomy History of tooth extraction Hx of cataract surgery R/L History of colonoscopy Hx laparoscopic cholecystectomy (07/2019) Laparoscopic Cholecystectomy (08/06/19): Grade 1 view, MAC#3, ETT 7.0, atraumatic Hx of basal cell carcinoma excision History of elbow surgery Right x2 (removal of hardware) Family History Daughter Breast cancer Social History Smoking Status: Never smoker Second Hand Exposure: No; Do You Dip or Chew Tobacco: No; Hx Alcohol Use: Yes Alcohol type: wine Hx Substance Use: No Preferred Language: Cymro Communication Ability: Effective Tobacco Stripper Hand Required: No Beliefs That Will Affect Care: None marital status: Current Living Situation: Alone Current Living Situation Comment: indep living current occupational status: retired How many Children do You have: 1 Other Information That Helps Us Care for You: No Feels Safe at Home: Yes Safety Concerns: Feels Safe At This Time Assistive Devices: Walker Allergies Allergies Allergy/AdvReac Type Severity Reaction Status Date / Time clams Allergy Severe Dyspepsia, Verified 11/27/24 06:58 abdominal pain Home Meds Home Medications Medication Instructions Recorded Confirmed calcium 500 mg (as 1 tab PO BID 04/24/22 11/29/24 carbonate)-vitamin D3 5 mcg (200 unit) tablet (Calcium 500 + D) multivitamin with minerals 1 tab PO DAILY 04/24/22 11/29/24 olopatadine 0.1 % eye drops 1 drp OPB DAILY PRN allergies 04/24/22 11/29/24 vitamin B complex 1 tab PO DAILY 04/24/22 11/29/24 L.acidop,casei,lactis,rham-B.lact,marcelle 1 cap PO QPM 05/17/23 11/29/24 625 mg (10 billion cell) capsule (Advanced Probiotic) methimazole 5 mg tablet 5 mg PO QAM 05/17/23 11/29/24 latanoprost 0.005 % eye drops 1 drp OPR HS 09/04/23 11/29/24 escitalopram oxalate 10 mg tablet 10 mg PO HS 09/01/24 11/29/24 pravastatin 20 mg tablet 20 mg PO HS 09/01/24 11/29/24 acetaminophen 500 mg tablet 1,000 mg PO Q6H PRN Pain 11/29/24 11/29/24 Previous Rx's Medication Instructions Recorded levetiracetam 1,000 mg tablet 1,000 mg PO BID 30 days #60 tabs 09/01/24 aspirin 81 mg tablet,delayed 81 mg PO BID 42 days #0 tabs 11/27/24 release cefadroxil 500 mg capsule 500 mg PO BID 10 days #20 caps 11/27/24 cyclobenzaprine 10 mg tablet 10 mg PO BID PRN muscle spasm #20 11/28/24 tabs ferrous sulfate 325 mg (65 mg 325 mg PO BIDM 30 days #60 tabs 12/01/24 iron) tablet,delayed release Results & Data (ED) Vital Signs Vital Signs - 24 hr 11/29/24 10:57 11/29/24 11:01 11/29/24 11:21 Temperature 36.9 C Temperature Source Oral Pulse Rate - Lying Pulse Rate - Sitting Pulse Rate - Standing Pulse Rate 76 80 Pulse Rate [Apical] Pulse Strength Normal Respiratory Rate 17 Respiratory Effort / Characteristics Non-Labored Spontaneous Respiratory Depth Normal Respiratory Pattern Regular Blood Pressure - Lying Blood Pressure - Sitting Blood Pressure- Standing Blood Pressure 112/67 Blood Pressure [Left Arm] Blood Pressure Mean 82 Blood Pressure Mean [Left Arm] Blood Pressure Position Sitting Blood Pressure Position [Left Arm] Pulse Oximetry 96 96 Oxygen Delivery Method Room Air Room Air Sepsis Recent Fever Within 48 Hours No Sepsis New/Unexplained Change in Mental Status No Sepsis Action Taken by Nursing No Action Required 11/29/24 11:52 11/29/24 13:17 11/29/24 16:14 Temperature Temperature Source Pulse Rate - Lying 73 Pulse Rate - Sitting 84 Pulse Rate - Standing 80 Pulse Rate 71 Pulse Rate [Apical] 71 Pulse Strength Respiratory Rate 18 Respiratory Effort / Characteristics Respiratory Depth Respiratory Pattern Blood Pressure - Lying 100/60 Blood Pressure - Sitting 101/60 Blood Pressure- Standing 107/65 Blood Pressure Blood Pressure [Left Arm] 108/63 Blood Pressure Mean Blood Pressure Mean [Left Arm] 78 Blood Pressure Position Blood Pressure Position [Left Arm] Pulse Oximetry 96 Oxygen Delivery Method Sepsis Recent Fever Within 48 Hours Sepsis New/Unexplained Change in Mental Status Sepsis Action Taken by Nursing 11/29/24 16:21 11/29/24 17:13 Temperature Temperature Source Pulse Rate - Lying Pulse Rate - Sitting Pulse Rate - Standing Pulse Rate Pulse Rate [Apical] 71 Pulse Strength Respiratory Rate 18 Respiratory Effort / Characteristics Non-Labored Spontaneous Respiratory Depth Normal Respiratory Pattern Regular Blood Pressure - Lying Blood Pressure - Sitting Blood Pressure- Standing Blood Pressure Blood Pressure [Left Arm] 129/77 79/44 L Blood Pressure Mean Blood Pressure Mean [Left Arm] 94 55 Blood Pressure Position Blood Pressure Position [Left Arm] Sitting Pulse Oximetry 97 Oxygen Delivery Method Room Air Sepsis Recent Fever Within 48 Hours Sepsis New/Unexplained Change in Mental Status Sepsis Action Taken by [facility] Medications Current Medication List: was personally reviewed by me Laboratory Data Attestation: I reviewed the patient's lab results. 12/01/24 05:46 12/01/24 05:46 Lab Results 11/29/24 11/30/24 11/30/24 Range/Units 11:41 07:05 12:52 WBC 10.62 8.88 (4.8-10.8) K/ul RBC 3.10 L 2.76 L (4.20-5.40) M/uL Hgb 10.0 L 8.6 L 9.5 L (12.0-16.0) g/dl Hct 29.8 L 26.4 L 28.5 L (37.0-47.0) % MCV 96.1 95.7 (80.0-100.0) fL MCH 32.3 31.2 (25.0-34.0) pg MCHC 33.6 32.6 (32.0-36.0) g/dL RDW Std Deviation 46.3 46.6 H (36.4-46.3) fL RDW Coeff of Bhavesh 13.2 13.4 (11.5-14.5) % Plt Count 181 156 (130-400) K/uL MPV 9.8 9.7 (9.4-12.4) fL Immature Gran % (Auto) 0.5 % Neut % (Auto) 67.1 % Lymph % (Auto) 16.0 % [place] % (Auto) 15.9 % Eos % (Auto) 0.2 % Baso % (Auto) 0.3 % Neut # (Auto) 7.13 H (1.40-6.50) K/uL Lymph # (Auto) 1.70 (1.20-3.40) K/uL [place] # (Auto) 1.69 H (0.11-0.59) K/uL Eos # (Auto) 0.02 (0.00-0.50) K/uL Baso # (Auto) 0.03 (0.00-0.20) K/uL Immature Gran # (Auto) 0.05 (0.01-0.20) K/uL Sodium 141 142 (136-145) mmol/L Potassium 4.1 3.8 (3.5-5.1) mmol/L Chloride 110 H 112 H (98-107) mmol/L Carbon Dioxide 27 27 (21-32) mmol/L Anion Gap 4 3 (3-11) BUN 24 H 12 (6-23) mg/dl Creatinine 0.68 0.56 L (0.6-1.2) mg/dl Est Cr Clr Drug Dosing 65.9 79.8 ml/min eGFR 89.64 93.94 BUN/Creatinine Ratio 35.3 H 21.4 H (10-20) Glucose 106 H 96 (70-99(Fasting)) mg/dl Calcium 8.2 L 8.3 L (8.6-10.3) mg/dl Phosphorus 2.1 L (2.5-4.9) mg/dl Magnesium 2.0 (1.7-2.4) mg/dl Total Bilirubin 0.5 (0.2-1.0) mg/dl AST 20 (13-39) U/L ALT 13 (7-52) U/L Alkaline Phosphatase 73 (34-104) U/L Troponin I High Sens 4.1 (0-14) pg/ml Total Protein 5.7 L (6.0-8.3) gm/dl Albumin 3.7 (3.4-5.0) gm/dl Globulin 2.0 L (2.5-4.0) gm/dl Albumin/Globulin Ratio 1.9 (0.9-2) TSH 2.341 (0.300-4.500) uIu/ml Cortisol AM Sample 7.98 (6.2-22.6) mcg/dl Administered Medications Discontinued Medications Acetaminophen (Acetaminophen 500 Mg Tab) 1,000 mg PO Q8H [facility] Stop: 12/29/24 17:44 Last Admin: 12/01/24 09:46 Dose: 1,000 mg Documented By: Admin: 12/01/24 01:59 Dose: 1,000 mg Documented By: Admin: 11/30/24 18:28 Dose: 1,000 mg Documented By: Admin: 11/30/24 08:46 Dose: 1,000 mg Documented By: Admin: 11/30/24 02:21 Dose: 1,000 mg Documented By: Admin: 11/29/24 20:01 Dose: 1,000 mg Documented By: SUSHILA Aspirin (Aspirin 81 Mg Ectab) 81 mg PO BID [facility] Stop: 12/29/24 20:59 Last Admin: 12/01/24 08:07 Dose: 81 mg Documented By: Admin: 11/30/24 20:38 Dose: 81 mg Documented By: Admin: 11/30/24 07:57 Dose: 81 mg Documented By: Admin: 11/29/24 22:45 Dose: 81 mg Documented By: CATHERINE Bisacodyl (Bisacodyl 10 Mg Supp) 10 mg [place] NOW STA Stop: 11/29/24 13:59 Last Admin: 11/29/24 14:07 Dose: 10 mg Documented By: ELIZABETH Calcium/Vitamin D (Calcium 600mg + Vit D 400 Iu Tab) 1 tab PO BID [facility] Stop: 12/29/24 20:59 Last Admin: 12/01/24 08:08 Dose: 1 tab Documented By: Admin: 11/30/24 20:38 Dose: 1 tab Documented By: Admin: 11/30/24 07:58 Dose: 1 tab Documented By: Admin: 11/29/24 22:44 Dose: 1 tab Documented By: CATHERINE Cefadroxil (Cefadroxil 500 Mg Cap) 500 mg PO BID [facility] Stop: 01/10/25 20:59 Last Admin: 12/01/24 09:46 Dose: 500 mg Documented By: Admin: 11/30/24 20:38 Dose: 500 mg Documented By: Admin: 11/30/24 10:25 Dose: 500 mg Documented By: Admin: 11/29/24 22:45 Dose: 500 mg Documented By: CATHERINE Cyclobenzaprine HCl (Cyclobenzaprine Hcl 10 Mg Tab) 10 mg PO NOW STA Stop: 11/29/24 15:46 Last Admin: 11/29/24 15:52 Dose: 10 mg Documented By: INESSA Cyclobenzaprine HCl (Cyclobenzaprine Hcl 10 Mg Tab) 10 mg PO BID PRN PRN Reason: muscle spasm Stop: 12/29/24 17:42 Last Admin: 11/30/24 11:09 Dose: 10 mg Documented By: NATIVIDAD Escitalopram Oxalate (Escitalopram Oxalate 10 Mg Tab) 10 mg PO HS [facility] Stop: 12/29/24 20:59 Last Admin: 11/30/24 20:38 Dose: 10 mg Documented By: Admin: 11/29/24 22:44 Dose: 10 mg Documented By: CATHERINE Ferrous Sulfate (Ferrous Sulfate 325 Mg Tab) 325 mg PO BIDM [facility] Stop: 12/31/24 16:59 Last Admin: 12/01/24 16:46 Dose: 325 mg Documented By: TIFFANIE Sodium Chloride (Nss) 500 mls @ 999 mls/hr IV .Q31M ONE Stop: 11/29/24 12:05 Last Infusion: 11/29/24 12:52 Dose: Infused Documented By: Admin: 11/29/24 11:41 Dose: 999 mls/hr Documented By: INESSA Sodium Chloride (Nss) 1,000 mls @ 80 mls/hr IV .[id number] [facility] Stop: 11/30/24 06:14 Last Infusion: 11/30/24 06:39 Dose: Infused Documented By: Admin: 11/29/24 18:09 Dose: 80 mls/hr Documented By: INESSA Albumin Human (Albumin 25%) 25 gm in 100 mls @ 50 mls/hr IV ONE ONE Stop: 11/29/24 19:39 Last Infusion: 11/29/24 20:37 Dose: Infused Documented By: Admin: 11/29/24 18:39 Dose: 50 mls/hr Documented By: INESSA Sodium Chloride (Nss) 1,000 mls @ 80 mls/hr IV .[id number] [facility] Stop: 12/01/24 07:59 Last Infusion: 12/01/24 10:32 Dose: Infused Documented By: Admin: 11/30/24 22:02 Dose: 80 mls/hr Documented By: Infusion: 11/30/24 20:37 Dose: Infused Documented By: Admin: 11/30/24 08:07 Dose: 80 mls/hr Documented By: NATIVIDAD Sodium Chloride (Nss) 500 mls @ 80 mls/hr IV .[id number] [facility] Stop: 12/01/24 14:59 Last Infusion: 12/01/24 16:21 Dose: Infused Documented By: Admin: 12/01/24 09:47 Dose: 80 mls/hr Documented By: TIFFANIE Lactobacillus Acidophilus (Advanced Probiotic 625 Mg Capsule) 625 mg PO QPM [facility] Stop: 12/29/24 20:59 Last Admin: 02/10/25 20:38 Dose: 625 mg Documented By: Admin: 11/29/24 22:45 Dose: 625 mg Documented By: CATHERINE Latanoprost (Latanoprost 0.005% Op Soln 2.5 Ml Btl) 1 drops OPR HS [facility] Stop: 12/29/24 20:59 Last Admin: 11/30/24 20:39 Dose: 1 drops Documented By: Admin: 11/29/24 22:45 Dose: 1 drops Documented By: CATHERINE Levetiracetam (Levetiracetam 500 Mg Tab) 1,000 mg PO BID [facility] Stop: 12/29/24 20:59 Last Admin: 12/01/24 08:07 Dose: 1,000 mg Documented By: Admin: 11/30/24 20:38 Dose: 1,000 mg Documented By: Admin: 11/30/24 07:58 Dose: 1,000 mg Documented By: Admin: 11/29/24 22:44 Dose: 1,000 mg Documented By: CATHERINE Methimazole (Methimazole 5 Mg Tablet) 5 mg PO QAM [facility] Stop: 12/30/24 08:59 Last Admin: 12/01/24 08:07 Dose: 5 mg Documented By: Admin: 11/30/24 07:58 Dose: 5 mg Documented By: NATIVIDAD Midodrine (Midodrine Hcl 2.5 Mg Tab) 2.5 mg PO ONE ONE Stop: 11/29/24 18:01 Last Admin: 11/29/24 18:08 Dose: 2.5 mg Documented By: INESSA Morphine Sulfate (Morphine Sulfate 2 Mg/Ml Carp) 2 mg IV NOW STA Stop: 11/29/24 15:58 Last Admin: 11/29/24 16:03 Dose: 2 mg Documented By: INESSA Oxycodone HCl (Oxycodone Ir Home Pack) 1 each PO UD ONE Stop: 11/29/24 15:46 Last Admin: 11/29/24 18:08 Dose: Not Given Documented By: INESSA Potassium Phosphate (Pot Phosphate Monobasic W/ Sod Tab) 1 tab PO QID [facility] Stop: 12/30/24 08:59 Last Admin: 12/01/24 16:46 Dose: 1 tab Documented By: Admin: 12/01/24 12:22 Dose: 1 tab Documented By: Admin: 12/01/24 08:07 Dose: 1 tab Documented By: Admin: 11/30/24 20:38 Dose: 1 tab Documented By: Admin: 11/30/24 16:18 Dose: 1 tab Documented By: Admin: 11/30/24 12:46 Dose: 1 tab Documented By: Admin: 11/30/24 08:45 Dose: 1 tab Documented By: NATIVIDAD Pravastatin Sodium (Pravastatin Sod 20 Mg Tab) 20 mg PO HS [facility] Stop: 12/29/24 20:59 Last Admin: 11/30/24 20:38 Dose: 20 mg Documented By: Admin: 11/29/24 22:45 Dose: 20 mg Documented By: CATHERINE Vitamin B Complex (Vitamin B Complex Tab) 1 tab PO DAILY [facility] Stop: 12/30/24 08:59 Last Admin: 12/01/24 08:08 Dose: 1 tab Documented By: Admin: 11/30/24 07:58 Dose: 1 tab Documented By: NATIVIDAD Imaging Data Radiologist's Impression: KUB X-Ray 11/29/24 13:44 INDICATION: Abdominal pain and constipation. TECHNIQUE: 2 views of the abdomen. COMPARISON: No relevant priors. FINDINGS: Mild retained colonic and rectal stool. No dilated loops of bowel or air-fluid levels. No free air. No pathologic calcifications. Phleboliths in the pelvis. No acute osseous or soft tissue abnormality. IMPRESSION: Mild retained colonic and rectal stool. Electronically signed by Jenaro Agee 11-29-2024 2:47 PM Discharge Plan Visit Data Chief Complaint: Dizziness Stated Complaint: DIZZINESS ED Provider: Lillie Friedman Discharge Problem: Dizziness, S/P total knee replacement Patient Disposition: Home - Self-Care Condition: Good Discharge Instructions Interventions: ED Discharge Assessment Last Done: 11/29/24 20:04 Discharge Problem: S/P total knee replacement Qualifiers: Laterality: right Qualified Code(s): Z96.651 - Presence of right artificial knee joint
[2024-11-29] MEDS: bisacodyL 10 MG SUPP PR STA (14:07)
--- NOTE | 2024-11-29 14:48 | XRay Report ---
INDICATION: Abdominal pain and constipation. TECHNIQUE: 2 views of the abdomen. COMPARISON: No relevant priors. FINDINGS: Mild retained colonic and rectal stool. No dilated loops of bowel or air-fluid levels. No free air. No pathologic calcifications. Phleboliths in the pelvis. No acute osseous or soft tissue abnormality. IMPRESSION: Mild retained colonic and rectal stool. Electronically signed by Jenaro Agee 11-29-2024 2:47 PM
[2024-11-29] MEDS: CYCLOBENZAPRINE HCL 10 MG TAB PO STA (15:52)
[2024-11-29] MEDS: MoRPHine SULFATE 2 MG/ML CARP IV STA (16:03)
[2024-11-29] MEDS ORDERED: ONDANSETRON INJ 2 MG/ML 2 ML VIAL IV PRN (17:42)
[2024-11-29] MEDS ORDERED: ALUMINUM/MAGNESIUM SUSP 30 ML UDC PO PRN (17:42)
[2024-11-29] MEDS ORDERED: MAGNESIUM HYDROXIDE SUSP 30 ML UDC PO PRN (17:42)
[2024-11-29] MEDS ORDERED: oxyCODONE HCL IR 5 MG TAB (IMMEDIATE RELEASE) PO PRN (17:43)
[2024-11-29] MEDS ORDERED: NON-FORMULARY MEDICATION (Olopatadine 0.1 % Drops) OPB PRN (17:43)
--- NOTE | 2024-11-29 17:49 | History & Physical Report ---
Date of Service November 29, 2024 Assessment & Plan (1) Hypotension: Plan Hypotension likely 2/2 pain meds and deconditioning after recent Rt TKA came in w/ low BP and dizziness when standing up. Has been getting oxycodone at home for post TKA pain control BP noted to drop after morphine dose in the ED. s/p 1 L IVF in ED, will c/w NSS at 80 ml/hr, give a 2.5 mg midodrine, and 25gm iv albumin. Fall precautions. get ortho vitals. minimize opiates pain meds, get tylenol scheduled. Slow transition during change in position. Status post Rt TKA status, recently operated on 11/27. Was started on cefadroxil for 10 days. Continue. Follow-up with Ortho upon discharge. On aspirin twice daily for DVT prophylaxis, continue. Acute blood loss anemia: Likely secondary to postoperative blood loss. 11/10 hemoglobin of 14.3, 11/29 hemoglobin of 10.0. Monitor H&H daily or as needed. Currently patient with no shortness of breath or palpitation. No indication for acute blood transfusion for now. Other chronic medical conditions: Epilepsy, multinodular goiter, NAVIN -- continue with/resume home meds. DVT prophylaxis: SCDs, aspirin twice daily Full code History of Present Illness Chief Complaint: Low BP, dizziness when standing up Primary Care Provider: Elvia Rodriguez MD 79-year-old lady with PMH of multinodular goiter, tricuspid regurgitation, osteoarthritis of both knees, status post right TKA on November 27, 2024, psoriasis, neuropathy, leukocytosis, NAVIN, TIA presented to the ED due to ongoing low blood pressure at home associated with dizziness when standing since discharge yesterday (after Rt TKA). Patient's daughter at bedside. Was also updated on plan of care. Patient reports eating okay, denies fever/cough/fever/chest pain/belly pain/pain or burning with passing urine. Patient reports dizziness when standing up today morning, they reported blood pressure at 70s/ 50s at home and hence decided to come to the ED. In the ED, patient's blood pressure has been fairly okay throughout the day (pt's BP run on lower side per dtr), she received morphine for her post TKA pain control, and drop in blood pressure noted in an hour or so. Medications reviewed with patient's daughter at bedside. Full code Current care discussed with them in detail, verbalized understanding. Allergies Allergy/AdvReac Type Severity Reaction Status Date / Time clams Allergy Severe Dyspepsia, Verified 11/27/24 06:58 abdominal pain Home Medications Medication Instructions Recorded Confirmed Type calcium 500 mg (as 1 tab PO BID 04/24/22 11/29/24 History carbonate)-vitamin D3 5 mcg (200 unit) tablet (Calcium 500 + D) multivitamin with minerals 1 tab PO DAILY 04/24/22 11/29/24 History olopatadine 0.1 % eye drops 1 drp OPB DAILY PRN allergies 04/24/22 11/29/24 History vitamin B complex 1 tab PO DAILY 04/24/22 11/29/24 History L.acidop,casei,lactis,rham-B.lact,marcelle 1 cap PO QPM 05/17/23 11/29/24 History 625 mg (10 billion cell) capsule (Advanced Probiotic) methimazole 5 mg tablet 5 mg PO QAM 05/17/23 11/29/24 History latanoprost 0.005 % eye drops 1 drp OPR HS 09/04/23 11/29/24 History escitalopram oxalate 10 mg tablet 10 mg PO HS 09/01/24 11/29/24 History levetiracetam 1,000 mg tablet 1,000 mg PO BID 30 days #60 tabs 09/01/24 11/29/24 Rx pravastatin 20 mg tablet 20 mg PO HS 09/01/24 11/29/24 History aspirin 81 mg tablet,delayed 81 mg PO BID 42 days #0 tabs 11/27/24 11/29/24 Rx release cefadroxil 500 mg capsule 500 mg PO BID 10 days #20 caps 11/27/24 11/29/24 Rx oxycodone 5 mg tablet 5 mg PO Q6H PRN pain #30 tabs 11/27/24 11/29/24 Rx cyclobenzaprine 10 mg tablet 10 mg PO BID PRN muscle spasm #20 11/28/24 11/29/24 Rx tabs acetaminophen 500 mg tablet 1,000 mg PO Q6H PRN Pain 11/29/24 11/29/24 History Past Med/Surg History Problem List (Updated 11/29/24 @ 18:03 by Antelmo Dunham MD) Hypotension S/P total knee replacement (Acute) Dizziness (Acute) Status post right knee replacement (~11/2024) Prepatellar bursitis, left knee Encounter for pre-operative examination Anxiety Osteoarthritis of right knee Seizure disorder Osteoporosis Hyperthyroidism Medical History Anxiety Arthritis Diverticular disease Glaucoma B/L Hiatal hernia History of TIAs (2021) Possible Follows with [facility] [place] neuro Hx of basal cell carcinoma s/p excision Hyperthyroidism Taking Methimazole Multinodular goiter Osteoarthritis Osteoporosis Seizure disorder Most recent seizure 10+ years ago Taking Levetiracetam Follows with [facility] [place] neuro Tachycardia (09/2024) [facility] ER visit > discussed f/u with PCP + neuro (recent 72 hour heart monitor mentioned) Vasovagal episode Hx Surgical History History of anesthesia reaction Difficulty waking & low BP requiring additional days stay during left knee surgery 2022 History of colonoscopy History of elbow surgery Right x2 (removal of hardware) History of tonsillectomy History of tooth extraction History of total left knee replacement (TKR) (06/28/23) Left TKA (06/28/23): SAB at L3/4 (1 attempt) + regional at [facility] Hx laparoscopic cholecystectomy (07/2019) Laparoscopic Cholecystectomy (08/06/19): Grade 1 view, MAC#3, ETT 7.0, atraumatic Hx of basal cell carcinoma excision Hx of cataract surgery R/L Family History Daughter Breast cancer Social History Smoking Status: Never smoker Second Hand Exposure: No; Do You Dip or Chew Tobacco: No; Hx Alcohol Use: No Hx Substance Use: No Preferred Language: Kazakh Communication Ability: Effective Certified Nurse Aide Required: No Beliefs That Will Affect Care: None marital status: Current Living Situation: Alone Current Living Situation Comment: indep living current occupational status: retired How many Children do You have: 1 Feels Safe at Home: Yes Assistive Devices: Walker Review of Systems Review of Systems: Negative otherwise mentioned in HPI. Physical Exam Physical Exam: GENERAL: Alert and oriented x3. NAD, on RA. HEENT: No pallor, no icterus. Pupils equal, round and reactive to light. Oral mucosa moist. NECK: No JVD, no neck masses. HEART: S1 and S2 heard. Regular rate and rhythm. No murmur, no gallop. RESPIRATORY SYSTEM: Normal AP diameter. No accessory muscle use. No wheezing, no crackles. ABDOMEN: Soft, bowel sounds present, nontender, no distention. CENTRAL NERVOUS SYSTEM: No facial droop. Speech is clear. Obeys simple commands. Moves extremities. EXTREMITIES: No edema, no erythema seen. Rt knee w/ dressing, minimal spotty soakage noted. Results & Data Results & Data Vital Signs (Past 12 Hours) Vital Signs Temp Pulse Pulse Resp BP BP Pulse Ox 11/29/24 17:13 79/44 L 11/29/24 16:21 71 18 129/77 97 11/29/24 16:14 71 11/29/24 13:17 71 18 108/63 96 11/29/24 11:21 80 11/29/24 11:01 96 11/29/24 10:57 36.9 C 76 17 112/67 96 O2 Del Method 11/29/24 17:13 11/29/24 16:21 Room Air 11/29/24 16:14 11/29/24 13:17 11/29/24 11:21 11/29/24 11:01 Room Air 11/29/24 10:57 Room Air
[2024-11-29] MEDS: oxyCODONE IR HOME PACK PO ONE (18:08)
[2024-11-29] MEDS: MIDODRINE HCL 2.5 MG TAB PO ONE (18:08)
[2024-11-29] MEDS: SODIUM CHLORIDE 0.9% 1,000 ML IV SCH (18:09)
[2024-11-29] MEDS: ALBUMIN 25% 25 GM/100 ML VIAL IV ONE (18:39)
[2024-11-29] MEDS: ACETAMINOPHEN 500 MG TAB PO SCH (20:01)
--- NOTE | 2024-11-29 20:48 | Electrocardiogram Report ---
Test Reason : Blood Pressure : */* mmHG Vent. Rate : 74 BPM Atrial Rate : 74 BPM P-R Int : 168 ms QRS Dur : 94 ms QT Int : 392 ms P-R-T Axes : 55 67 53 degrees QTcB Int : 435 ms Normal sinus rhythm Normal ECG When compared with ECG of 23-Sep-2024 09:07, No significant change was found Confirmed by Lucian Ibarra ([id number]) on 11/29/2024 8:48:01 PM Referred By: Confirmed By: Lucian Ibarra
[2024-11-29] MEDS: levETIRAcetam 500 MG TAB PO SCH (22:44)
[2024-11-29] MEDS: ESCITALOPRAM OXALATE 10 MG TAB PO SCH (22:44)
[2024-11-29] MEDS: CALCIUM 600MG + VIT D 400 IU TAB PO SCH (22:44)
[2024-11-29] MEDS: ADVANCED PROBIOTIC 625 MG CAPSULE PO SCH (22:45)
[2024-11-29] MEDS: PRAVASTATIN SOD 20 MG TAB PO SCH (22:45)
[2024-11-29] MEDS: cefaDROXiL 500 MG CAP PO SCH (22:45)
[2024-11-29] MEDS: LATANOPROST 0.005% OP SOLN 2.5 ML BTL OPR SCH (22:45)
[2024-11-29] MEDS: ASPIRIN 81 MG ECTAB PO SCH (22:45)
[2024-11-30 07:41] LABS: Hematocrit (blood only) 26.4 % (37.0-47.0); Hemoglobin 8.6 g/dl (12.0-16.0); Mean Corpuscular Hemoglobin 31.2 pg (25.0-34.0); Mean Corpuscular Hgb Conc 32.6 g/dL (32.0-36.0); Mean Corpuscular Volume 95.7 fL (80.0-100.0); Mean Platelet Volume 9.7 fL (9.4-12.4); Platelet Count 156 K/uL (130-400); RDW Coefficient of Variation 13.4 % (11.5-14.5); RDW Standard Deviation 46.6 fL (36.4-46.3); Red Blood Count 2.76 M/uL (4.20-5.40); White Blood Count 8.88 K/ul (4.8-10.8)
[2024-11-30] MEDS ORDERED: KETOROLAC TROMETHAMINE 15 MG/ML VIAL IV PRN (07:52)
[2024-11-30 07:55] LABS: BUN Creatinine Ratio 21.4 (10-20); Calcium 8.3 mg/dl (8.6-10.3); Creatinine Clr Calc Pharmacy 79.8 ml/min; Phosphorus 2.1 mg/dl (2.5-4.9); Potassium 3.8 mmol/L (3.5-5.1)
[2024-11-30] MEDS: methIMAzole 5 MG TABLET PO SCH (07:58)
[2024-11-30] MEDS: VITAMIN B COMPLEX TAB PO SCH (07:58)
[2024-11-30] MEDS: SODIUM CHLORIDE 0.9% 1,000 ML IV SCH (08:07)
[2024-11-30] MEDS: POT PHOSPHATE MONOBASIC W/ SOD TAB PO SCH (08:45)
[2024-11-30 09:21] LABS: Thyroid Stimulating Hormone 2.341 uIu/ml (0.300-4.500)
[2024-11-30] MEDS: CYCLOBENZAPRINE HCL 10 MG TAB PO PRN (11:09)
[2024-11-30 13:09] LABS: Hematocrit (blood only) 28.5 % (37.0-47.0); Hemoglobin 9.5 g/dl (12.0-16.0)
--- NOTE | 2024-11-30 17:15 | Hospitalist Progress Note ---
Date of Service November 30, 2024 Assessment & Plan (1) Hypotension: Plan Per admitting service notes addendum: Hypotension likely 2/2 pain meds and deconditioning after recent Rt TKA came in w/ low BP and dizziness when standing up. Has been getting oxycodone at home for post TKA pain control BP noted to drop after morphine dose in the ED. s/p 1 L IVF in ED, will c/w NSS at 80 ml/hr, give a 2.5 mg midodrine, and 25gm iv albumin. Fall precautions. get ortho vitals. minimize opiates pain meds, get tylenol scheduled. Slow transition during change in position. 11/30 Blood pressure seems to be improving Hypotension likely multifactorial Likely secondary to volume depletion secondary to anemia, dehydration Hemoglobin decreased: Baseline 14, now 10, 8.6, 9.5 No signs of active bleeding at this point Could possibly be related to recent surgery Will monitor closely Gentle IV fluids will be continued Narcotics could also be contributing, DC narcotics Start Toradol low-dose as needed Cortisol level 7.9 If blood pressure continues to be low, will consider cosyntropin test to rule out adrenal insufficiency PT OT evaluation Status post Rt TKA status, recently operated on 11/27. Was started on cefadroxil for 10 days. Continue. Follow-up with Ortho upon discharge. On aspirin twice daily for DVT prophylaxis, continue. Acute blood loss anemia: Likely secondary to postoperative blood loss. 11/10 hemoglobin of 14.3, 11/29 hemoglobin of 10.0. Monitor H&H daily or as needed. Currently patient with no shortness of breath or palpitation. No indication for acute blood transfusion for now. Per above Other chronic medical conditions: Epilepsy, multinodular goiter, NAVIN -- continue with/resume home meds. DVT prophylaxis: SCDs, aspirin twice daily Full code Disposition PT OT evaluation in progress Admission and Anticipated Discharge Date Admission Date: November 30, 2024 Subjective Follow-up for hypertension, status post right knee surgery, etc. Seen resting in bed, comfortable, in good spirits Not in distress States she feels improved today compared to yesterday No dizziness when standing and ambulating in the room Denies chest pain, shortness of breath, palpitations Denies melena or hematochezia Has minimal right knee pain No bleeding No other new symptoms Review of Systems Review of Systems: all noted and negative except for above Physical Exam Physical Exam: General- oriented x 3, not in distress, speaks in sentences with no effort or accessory muscle use Eyes- anicteric Neck- no JVD Lungs- clear breath sounds bilaterally, no rales/wheezes Heart- normal rate, regular rhythm; no murmurs Abdomen- normal bowel sounds, nondistended, soft, nontender Extremities- no pretibial edema, no calf tenderness Right knee: Mild edema, dressing in place, with minimal sanguinous discharge Neuro- alert, oriented x 3; no gross focal neurologic deficits Skin- warm & dry Results & Data Results & Data Vital Signs (Past 12 Hours) Vital Signs Temp Pulse Pulse Resp BP BP Pulse Ox 11/30/24 15:48 36.7 C 77 18 112/68 96 11/30/24 13:36 97 11/30/24 12:52 85 11/30/24 11:08 36.4 C L 74 16 104/63 99 11/30/24 10:40 11/30/24 07:41 36.7 C 81 16 105/68 96 11/30/24 05:44 69 O2 Del Method 11/30/24 15:48 Room Air 11/30/24 13:36 11/30/24 12:52 11/30/24 11:08 Room Air 11/30/24 10:40 Room Air 11/30/24 07:41 Room Air 11/30/24 05:44 all noted and reviewed including below
[2024-12-01 06:56] LABS: Basophils # (auto) 0.05 K/uL (0.00-0.20); Basophils % (auto) 0.6 %; Eosinophils # (auto) 0.36 K/uL (0.00-0.50); Eosinophils % (auto) 4.3 %; Hematocrit (blood only) 25.8 % (37.0-47.0); Hemoglobin 8.8 g/dl (12.0-16.0); Immature Granulocytes # (auto) 0.03 K/uL (0.01-0.20); Immature Granulocytes % (auto) 0.4 %; Lymphocytes # (auto) 1.98 K/uL (1.20-3.40); Lymphocytes % (auto) 23.5 %; Mean Corpuscular Hemoglobin 32.8 pg (25.0-34.0); Mean Corpuscular Hgb Conc 34.1 g/dL (32.0-36.0); Mean Corpuscular Volume 96.3 fL (80.0-100.0); Mean Platelet Volume 10.2 fL (9.4-12.4); Monocytes # (auto) 1.06 K/uL (0.11-0.59); Monocytes % (auto) 12.6 %; Neutrophils # (auto) 4.93 K/uL (1.40-6.50); Neutrophils % (auto) 58.6 %; Platelet Count 168 K/uL (130-400); RDW Coefficient of Variation 13.5 % (11.5-14.5); RDW Standard Deviation 46.6 fL (36.4-46.3); Red Blood Count 2.68 M/uL (4.20-5.40); White Blood Count 8.41 K/ul (4.8-10.8)
[2024-12-01 07:07] LABS: BUN Creatinine Ratio 27.7 (10-20); Calcium 8.2 mg/dl (8.6-10.3); Creatinine Clr Calc Pharmacy 94.4 ml/min; Potassium 3.7 mmol/L (3.5-5.1)
[2024-12-01 08:01] LABS: Appearance Urine Clear (Clear); Bilirubin Urine Negative (Negative); Blood Urine Negative (Negative); Color Urine Dark Yellow; Glucose Urine UA Negative (Negative); Ketones Urine Negative (Negative); Leukocyte Esterase Urine Negative (Negative); Nitrite Urine Negative (Negative); Protein Urine Negative (Negative); Specific Gravity Urine 1.035 (1.000-1.030); Urobilinogen Urine Negative (Negative); pH Urine 5.5 (4.5-7.5)
[2024-12-01] MEDS: SODIUM CHLORIDE 0.9% 500 ML IV SCH (09:47)
[2024-12-01 11:46] VITALS: O2SAT 97
--- NOTE | 2024-12-01 14:13 | Hospitalist Progress Note ---
Date of Service December 01, 2024 Assessment & Plan (1) Hypotension: Plan Per admitting service notes addendum: Hypotension, Status post TKA Multifactorial: Anemia, dehydration, narcotics came in w/ low BP and dizziness when standing up. Has been getting oxycodone at home for post TKA pain control BP noted to drop after morphine dose in the ED. s/p 1 L IVF in ED, will c/w NSS at 80 ml/hr, give a 2.5 mg midodrine, and 25gm iv albumin. Fall precautions. get ortho vitals. minimize opiates pain meds, get tylenol scheduled. Slow transition during change in position. 11/30 Blood pressure seems to be improving Hypotension likely multifactorial Likely secondary to volume depletion secondary to anemia, dehydration Hemoglobin decreased: Baseline 14, now 10, 8.6, 9.5 No signs of active bleeding at this point Could possibly be related to recent surgery Will monitor closely Gentle IV fluids will be continued Narcotics could also be contributing, DC narcotics Start Toradol low-dose as needed Cortisol level 7.9 If blood pressure continues to be low, will consider cosyntropin test to rule out adrenal insufficiency PT OT evaluation 12/01 Blood pressure remained stable after IV NSS Blood pressure around 12 noon is 119/75 Patient asymptomatic now, lightheadedness when ambulating resolved Patient requesting for discharge Discharge plan: Advised to increase oral fluid intake Repeat CBC to monitor hemoglobin within 1 week No narcotics If blood pressure remains low, will need cosyntropin test to rule out adrenal insufficiency Follow-up with Ortho in 1 week as scheduled Status post Rt TKA status, recently operated on 11/27. Was started on cefadroxil for 10 days. Continue. Follow-up with Ortho upon discharge. On aspirin twice daily for DVT prophylaxis, continue. Acute blood loss anemia Iron deficiency Likely secondary to postoperative blood loss. 11/10 hemoglobin of 14.3, 11/29 hemoglobin of 10.0. Monitor H&H daily or as needed. Currently patient with no shortness of breath or palpitation. No indication for acute blood transfusion for now. 12/01 Iron level 30 Start ferrous sulfate twice daily Monitor closely as outpatient Other chronic medical conditions: Epilepsy, multinodular goiter, NAVIN -- continue with/resume home meds. DVT prophylaxis: SCDs, aspirin twice daily Full code Disposition Discharge to home PCP follow-up in 1 week Admission and Anticipated Discharge Date Admission Date: November 30, 2024 Subjective Follow-up for Hypotension, etc. Seen resting in bed, sitting up in bed, comfortable not distressed Good spirits States she feels better overall walking to the bathroom and washing herself independently with no dizziness or lightheadedness Denies chest pain, shortness of breath, palpitations, etc. Has minimal left knee pain No other new symptoms Review of Systems Review of Systems: all noted and negative except for above Physical Exam Physical Exam: General- oriented x 3, not in distress, speaks in sentences with no effort or accessory muscle use Eyes- anicteric Neck- no JVD Lungs- clear breath sounds bilaterally, no rales/wheezes Heart- normal rate, regular rhythm; no murmurs Abdomen- normal bowel sounds, nondistended, soft, nontender Extremities- no pretibial edema, no calf tenderness Right knee-dressing in place, very minimal sanguinous discharge Minimal edema of the knee and right lower extremity, No tenderness Neuro- alert, oriented x 3; no gross focal neurologic deficits Skin- warm & dry Results & Data Results & Data Vital Signs (Past 12 Hours) Vital Signs Temp Pulse Resp BP BP Pulse Ox O2 Del Method 12/01/24 11:45 36.7 C 104 H 16 119/75 97 Room Air 12/01/24 07:18 36.6 C 82 20 119/73 98 Room Air 12/01/24 04:18 36.4 C L 82 16 106/67 95 Room Air all noted and reviewed including below
--- NOTE | 2024-12-01 14:28 | Discharge Summary ---
Discharge Summary Date of Service December 01, 2024 Principal Dx & Hospital Course #1 = Principal Diagnosis (1) Hypotension: Plan Per admitting service notes addendum: Hypotension, Status post TKA Multifactorial: Anemia, dehydration, narcotics came in w/ low BP and dizziness when standing up. Has been getting oxycodone at home for post TKA pain control BP noted to drop after morphine dose in the ED. s/p 1 L IVF in ED, will c/w NSS at 80 ml/hr, give a 2.5 mg midodrine, and 25gm iv albumin. Fall precautions. get ortho vitals. minimize opiates pain meds, get tylenol scheduled. Slow transition during change in position. 11/30 Blood pressure seems to be improving Hypotension likely multifactorial Likely secondary to volume depletion secondary to anemia, dehydration Hemoglobin decreased: Baseline 14, now 10, 8.6, 9.5 No signs of active bleeding at this point Could possibly be related to recent surgery Gentle IV fluids will be continued Narcotics could also be contributing, DC narcotics Start Toradol low-dose as needed Cortisol level 7.9 If blood pressure continues to be low, will consider cosyntropin test to rule out adrenal insufficiency PT OT evaluation 12/01 Blood pressure remained stable after IV NSS Blood pressure around 12 noon is 119/75 Patient asymptomatic now, lightheadedness when ambulating resolved Patient requesting for discharge Discharge plan: Advised to increase oral fluid intake Repeat CBC to monitor hemoglobin within 1 week No narcotics If blood pressure remains low, will need cosyntropin test to rule out adrenal insufficiency Follow-up with Ortho in 1 week as scheduled Status post Rt TKA status, recently operated on 11/27. Was started on cefadroxil for 10 days. Continue. Follow-up with Ortho upon discharge. On aspirin twice daily for DVT prophylaxis, continue. Acute blood loss anemia Iron deficiency Likely secondary to postoperative blood loss. 11/10 hemoglobin of 14.3, 11/29 hemoglobin of 10.0. Monitor H&H daily or as needed. Currently patient with no shortness of breath or palpitation. No indication for acute blood transfusion for now. 12/01 Hg 14 --> 10--> 8.6 --> 9.5 --> 8.8 Iron level 30 Start ferrous sulfate twice daily Monitor closely as outpatient Mild hypophosphatemia Phosphorus 2.1 Neutra-Phos ordered Repeat levels in Other chronic medical conditions: Epilepsy, multinodular goiter, NAVIN -- continue with/resume home meds. DVT prophylaxis: SCDs, aspirin twice daily Full code Disposition Discharge to home PCP follow-up in 1 week Notes For Next Care Provider Medication Changes From Visit Neutra-Phos 4 times daily x 3 days Ferrous sulfate twice daily Admission HPI Per Admitting Provider 79-year-old lady with PMH of multinodular goiter, tricuspid regurgitation, osteoarthritis of both knees, status post right TKA on November 27, 2024, psoriasis, neuropathy, leukocytosis, NAVIN, TIA presented to the ED due to ongoing low blood pressure at home associated with dizziness when standing since discharge yesterday (after Rt TKA). Patient's daughter at bedside. Was also updated on plan of care. Patient reports eating okay, denies fever/cough/fever/chest pain/belly pain/pain or burning with passing urine. Patient reports dizziness when standing up today morning, they reported blood pressure at 70s/ 50s at home and hence decided to come to the ED. In the ED, patient's blood pressure has been fairly okay throughout the day (pt's BP run on lower side per dtr), she received morphine for her post TKA pain control, and drop in blood pressure noted in an hour or so. Medications reviewed with patient's daughter at bedside. Full code Current care discussed with them in detail, verbalized understanding. Admission Exam Per Admitting Provider GENERAL: Alert and oriented x3. NAD, on RA. HEENT: No pallor, no icterus. Pupils equal, round and reactive to light. Oral mucosa moist. NECK: No JVD, no neck masses. HEART: S1 and S2 heard. Regular rate and rhythm. No murmur, no gallop. RESPIRATORY SYSTEM: Normal AP diameter. No accessory muscle use. No wheezing, no crackles. ABDOMEN: Soft, bowel sounds present, nontender, no distention. CENTRAL NERVOUS SYSTEM: No facial droop. Speech is clear. Obeys simple commands. Moves extremities. EXTREMITIES: No edema, no erythema seen. Rt knee w/ dressing, minimal spotty soakage noted. Discharge Exam General- oriented x 3, not in distress, speaks in sentences with no effort or accessory muscle use Eyes- anicteric Neck- no JVD Lungs- clear breath sounds bilaterally, no rales/wheezes Heart- normal rate, regular rhythm; no murmurs Abdomen- normal bowel sounds, nondistended, soft, nontender Extremities- no pretibial edema, no calf tenderness Right knee-dressing in place, very minimal sanguinous discharge Minimal edema of the knee and right lower extremity, No tenderness Neuro- alert, oriented x 3; no gross focal neurologic deficits Skin- warm & dry Updated Medication List Medication Instructions Recorded Confirmed Type calcium 500 mg (as 1 tab PO BID 04/24/22 11/29/24 History carbonate)-vitamin D3 5 mcg (200 unit) tablet (Calcium 500 + D) multivitamin with minerals 1 tab PO DAILY 04/24/22 11/29/24 History olopatadine 0.1 % eye drops 1 drp OPB DAILY PRN allergies 04/24/22 11/29/24 History vitamin B complex 1 tab PO DAILY 04/24/22 11/29/24 History L.acidop,casei,lactis,rham-B.lact,marcelle 1 cap PO QPM 05/17/23 11/29/24 History 625 mg (10 billion cell) capsule (Advanced Probiotic) methimazole 5 mg tablet 5 mg PO QAM 05/17/23 11/29/24 History latanoprost 0.005 % eye drops 1 drp OPR HS 09/04/23 11/29/24 History escitalopram oxalate 10 mg tablet 10 mg PO HS 09/01/24 11/29/24 History levetiracetam 1,000 mg tablet 1,000 mg PO BID 30 days #60 tabs 09/01/24 11/29/24 Rx pravastatin 20 mg tablet 20 mg PO HS 09/01/24 11/29/24 History aspirin 81 mg tablet,delayed 81 mg PO BID 42 days #0 tabs 11/27/24 11/29/24 Rx release cefadroxil 500 mg capsule 500 mg PO BID 10 days #20 caps 11/27/24 11/29/24 Rx cyclobenzaprine 10 mg tablet 10 mg PO BID PRN muscle spasm #20 11/28/24 11/29/24 Rx tabs acetaminophen 500 mg tablet 1,000 mg PO Q6H PRN Pain 11/29/24 11/29/24 History ferrous sulfate 325 mg (65 mg 325 mg PO BIDM 30 days #60 tabs 02/11/25 Rx iron) tablet,delayed release sodium di- and 1 tab PO QID 3 days #12 tabs 12/01/24 Rx monophosphate-potassium phos monobasic 250 mg tablet (Phospha Neutral) Hospital Stay Data Consultations 11/29/24 17:08 ED Decision to Admit Stat Diagnostic Imagining Performed Laboratory Results WBC 8.41 K/ul (4.8-10.8) 12/01/24 05:46 RBC 2.68 M/uL (4.20-5.40) L 12/01/24 05:46 Hgb 8.8 g/dl (12.0-16.0) L 12/01/24 05:46 Hct 25.8 % (37.0-47.0) L 12/01/24 05:46 MCV 96.3 fL (80.0-100.0) 12/01/24 05:46 MCH 32.8 pg (25.0-34.0) 12/01/24 05:46 MCHC 34.1 g/dL (32.0-36.0) 12/01/24 05:46 RDW Std Deviation 46.6 fL (36.4-46.3) H 12/01/24 05:46 RDW Coeff of Bhavesh 13.5 % (11.5-14.5) 12/01/24 05:46 Plt Count 168 K/uL (130-400) 12/01/24 05:46 MPV 10.2 fL (9.4-12.4) 12/01/24 05:46 Immature Gran % (Auto) 0.4 % 12/01/24 05:46 Neut % (Auto) 58.6 % 12/01/24 05:46 Lymph % (Auto) 23.5 % 12/01/24 05:46 [place] % (Auto) 12.6 % 12/01/24 05:46 Eos % (Auto) 4.3 % 12/01/24 05:46 Baso % (Auto) 0.6 % 12/01/24 05:46 Neut # (Auto) 4.93 K/uL (1.40-6.50) 12/01/24 05:46 Lymph # (Auto) 1.98 K/uL (1.20-3.40) 12/01/24 05:46 [place] # (Auto) 1.06 K/uL (0.11-0.59) H 12/01/24 05:46 Eos # (Auto) 0.36 K/uL (0.00-0.50) 12/01/24 05:46 Baso # (Auto) 0.05 K/uL (0.00-0.20) 12/01/24 05:46 Immature Gran # (Auto) 0.03 K/uL (0.01-0.20) 12/01/24 05:46 Sodium 142 mmol/L (136-145) 12/01/24 05:46 Potassium 3.7 mmol/L (3.5-5.1) 12/01/24 05:46 Chloride 111 mmol/L (98-107) H 12/01/24 05:46 Carbon Dioxide 26 mmol/L (21-32) 12/01/24 05:46 Anion Gap 5 (3-11) 12/01/24 05:46 BUN 13 mg/dl (6-23) 12/01/24 05:46 Creatinine 0.47 mg/dl (0.6-1.2) L 12/01/24 05:46 Est Cr Clr Drug Dosing 94.4 ml/min 12/01/24 05:46 eGFR 97.99 12/01/24 05:46 BUN/Creatinine Ratio 27.7 (10-20) H 12/01/24 05:46 Glucose 97 mg/dl (70-99(Fasting)) 12/01/24 05:46 Calcium 8.2 mg/dl (8.6-10.3) L 12/01/24 05:46 Phosphorus 2.1 mg/dl (2.5-4.9) L 11/30/24 07:05 Magnesium 2.0 mg/dl (1.7-2.4) 11/30/24 07:05 Iron 30 mcg/dl (35-150) L 12/01/24 05:46 Total Bilirubin 0.5 mg/dl (0.2-1.0) 11/29/24 11:41 AST 20 U/L (13-39) 11/29/24 11:41 ALT 13 U/L (7-52) 11/29/24 11:41 Alkaline Phosphatase 73 U/L (34-104) 11/29/24 11:41 Troponin I High Sens 4.1 pg/ml (0-14) 11/29/24 11:41 Total Protein 5.7 gm/dl (6.0-8.3) L 11/29/24 11:41 Albumin 3.7 gm/dl (3.4-5.0) 11/29/24 11:41 Globulin 2.0 gm/dl (2.5-4.0) L 11/29/24 11:41 Albumin/Globulin Ratio 1.9 (0.9-2) 11/29/24 11:41 TSH 2.341 uIu/ml (0.300-4.500) 11/30/24 07:05 Cortisol AM Sample 7.98 mcg/dl (6.2-22.6) 11/30/24 07:05 Urine Color Dark Yellow 12/01/24 06:20 Urine Appearance Clear (Clear) 12/01/24 06:20 Urine pH 5.5 (4.5-7.5) 12/01/24 06:20 Ur Specific [place] 1.035 (1.000-1.030) H 12/01/24 06:20 Urine Protein Negative (Negative) 12/01/24 06:20 Urine Glucose (UA) Negative (Negative) 12/01/24 06:20 Urine Ketones Negative (Negative) 12/01/24 06:20 Urine Blood Negative (Negative) 12/01/24 06:20 Urine Nitrite Negative (Negative) 12/01/24 06:20 Urine Bilirubin Negative (Negative) 12/01/24 06:20 Urine Urobilinogen Negative (Negative) 12/01/24 06:20 Ur Leukocyte Esterase Negative (Negative) 12/01/24 06:20 Impressions XR knee RT 1 or 2V routine CLINICAL HISTORY: Surgical Post Op COMPARISON: 06/29/2024 FINDINGS: Interval right knee prosthesis shows no hardware complication. There is expected soft tissue gas. Skin maya are present. IMPRESSION: Unremarkable postoperative exam. ACT 112: Negative or not required by law. Electronically signed by: Timbo Freed M.D. 11/27/2024 9:32 AM KUB X-Ray 11/29/24 13:44 INDICATION: Abdominal pain and constipation. TECHNIQUE: 2 views of the abdomen. COMPARISON: No relevant priors. FINDINGS: Mild retained colonic and rectal stool. No dilated loops of bowel or air-fluid levels. No free air. No pathologic calcifications. Phleboliths in the pelvis. No acute osseous or soft tissue abnormality. IMPRESSION: Mild retained colonic and rectal stool. Electronically signed by Jenaro Agee 11-29-2024 2:47 PM Pending Results Patient Have Any Pending Studies at Discharge: No Discharge Instructions Given to Patient (Per Discharging Provider) Please drink plenty of water and maintain adequately hydrated daily. Do not use narcotics as this seems to make your blood pressure low. PLEASE CALL YOUR PRIMARY CARE PHYSICIAN OR RETURN TO THE ER IF WITH WORSENING OF SYMPTOMS, INCLUDING Dizziness, lightheadedness, weakness, shortness of breath, chest pain, Black or bloody stools, bleeding from your surgical site, Increase in leg swelling, leg pain etc. FOLLOW UP WITH PRIMARY CARE PHYSICIAN OUTLINED ABOVE. Follow-up with your orthopedic surgeon in 1 to 2 weeks as scheduled. Total Time Total Time Spent Total Time Spent (In Minutes): 45 minutes
[2024-12-01 15:13] VITALS: BP 109/70; RESP 20; TEMP 98.2
[2024-12-01 16:24] VITALS: PULSE 103
[2024-12-01] MEDS: FERROUS SULFATE 325 MG TAB PO SCH (16:46)
== END 2024-12-01 17:00 | disposition home or self-care (01) | DRG 470 ==
LOC: ED 10:52 → EDINP 10:52 → SUATTDRO 17:42 → 2N 20:04

== ENCOUNTER 2024-12-24 16:12 | Inpatient (IN) ==
[2024-12-24 17:35] LABS: Albumin Globulin Ratio 1.7 (0.9-2); Albumin Level 3.6 gm/dl (3.4-5.0); BUN Creatinine Ratio 42.3 (10-20); Bilirubin,Total 0.4 mg/dl (0.2-1.0); Calcium 8.5 mg/dl (8.6-10.3); Creatinine Clr Calc Pharmacy 88.3 ml/min; Globulin 2.1 gm/dl (2.5-4.0); Total Protein 5.7 gm/dl (6.0-8.3)
[2024-12-24 17:43] LABS: Thyroid Stimulating Hormone 1.808 uIu/ml (0.300-4.500); Troponin I High Sensitivity 5.4 pg/ml (0-14)
[2024-12-24 17:45] LABS: Basophils # (auto) 0.08 K/uL (0.00-0.20); Basophils % (auto) 0.7 %; Eosinophils % (auto) 0.9 %; Hematocrit (blood only) 21.7 % (37.0-47.0); Immature Granulocytes # (auto) 0.06 K/uL (0.01-0.20); Immature Granulocytes % (auto) 0.5 %; Lymphocytes # (auto) 1.74 K/uL (1.20-3.40); Lymphocytes % (auto) 15.6 %; Mean Corpuscular Hemoglobin 32.9 pg (25.0-34.0); Mean Corpuscular Hgb Conc 32.3 g/dL (32.0-36.0); Mean Corpuscular Volume 101.9 fL (80.0-100.0); Monocytes # (auto) 1.18 K/uL (0.11-0.59); Monocytes % (auto) 10.6 %; Neutrophils # (auto) 7.99 K/uL (1.40-6.50); Neutrophils % (auto) 71.7 %; Platelet Count 312 K/uL (130-400); RDW Coefficient of Variation 16.2 % (11.5-14.5); RDW Standard Deviation 59.7 fL (36.4-46.3); Red Blood Count 2.13 M/uL (4.20-5.40); White Blood Count 11.15 K/ul (4.8-10.8)
[2024-12-24 17:50] LABS: Potassium 3.9 mmol/L (3.5-5.1)
[2024-12-24] MEDS: OPTIRAY 320 125ml IV ONE (17:54)
[2024-12-24 18:09] LABS: Polychromasia 2+; Stomatocytes 1+
--- NOTE | 2024-12-24 18:10 | XRay Report ---
INDICATION: Shortness of breath. TECHNIQUE: Frontal radiograph of the chest. COMPARISON: 09/23/2024. FINDINGS: Cardiomegaly. Large hiatal hernia. Pulmonary vasculature appear within normal limits. Subsegmental atelectasis in the lung bases. No infiltrate, pleural effusion or pneumothorax. No acute osseous abnormality evident. IMPRESSION: No acute cardiopulmonary process. Large hiatal hernia. Electronically signed by Jenaro Agee 12-24-2024 6:10 PM
[2024-12-24 18:14] LABS: Partial Thromboplastin Ratio 0.8; Partial Thromboplastin Time 21 Seconds (21-31); Prothrombin Time 10.6 Seconds (9.0-12.0)
[2024-12-24] MEDS ORDERED: SODIUM CHLORIDE 0.9% 100 ML IV PRN (18:32)
[2024-12-24] MEDS ORDERED: SODIUM CHLORIDE 0.9% 50 ML IV PRN (18:32)
--- NOTE | 2024-12-24 18:38 | CT Scan Report ---
Technique: Axial computed tomography images were obtained of the abdomen and pelvis after the administration of intravenous and oral contrast. Comparison is made to the prior CT dated 07/08/2019. Findings: The liver is enlarged measuring 21.2 cm craniocaudal. There is no sign of cirrhosis or significant fatty infiltration. No liver mass lesion is seen. The portal vein is patent. The gallbladder has been removed. No bile duct dilatation is noted. The spleen is of normal size. No focal splenic lesion is evident. The pancreas appears normal with no sign of acute or chronic pancreatitis and no mass lesion noted. The pancreatic duct is of normal caliber. The adrenal glands appear unremarkable. No definite renal or proximal ureteral calculi are seen on this contrast-enhanced study. There is no hydronephrosis or perinephric stranding. No renal mass lesion is identified. There is a new small 3 mm right renal cyst. The abdominal aorta is of normal caliber. No abdominal adenopathy is seen. Again seen is a large hiatal hernia. This contains the entire stomach as well as small bowel loops and part of the pancreas. The entry of small bowel is new. There is no sign of small bowel obstruction. There is diverticulosis without evidence of diverticulitis. No free intraperitoneal fluid or air is identified. No distal ureteral or bladder calculi are seen. No bladder mass lesion is evident. The iliac arteries are of normal caliber. No pelvic adenopathy is noted. There are small uterine leiomyomas Lumbar scoliosis and degenerative disc disease is seen. No fracture is identified. No focal osseous lesion is seen Impression: 1. Large hiatal hernia containing the entire stomach as well as small bowel loops and part of the pancreas 2. Hepatomegaly 3. New small right renal cyst 4. Diverticulosis without evidence of diverticulitis 5. Small uterine leiomyomas Electronically signed by Amos Fernández 12-24-2024 6:37 PM
--- NOTE | 2024-12-24 18:41 | CT Scan Report ---
Technique: Axial computed tomography images were obtained of the chest after the administration of intravenous contrast according to the CT angiogram protocol Comparison is made to the prior chest CT dated 07/09/2019 Findings: There is no definite sign of pulmonary embolism. There is mild emphysema. There is no sign of pneumonia. There is bilateral lower lobe atelectasis adjacent to a large hiatal hernia. There is no pleural effusion or pneumothorax. There is no sign of pulmonary fibrosis or other diffuse interstitial process. No endobronchial lesion is seen There is no mediastinal, hilar, or axillary adenopathy. The thoracic aorta appears unremarkable with no sign of aneurysm or dissection. There is no pericardial effusion There are numerous thyroid nodules, with prominent enlargement of the left thyroid lobe that extends into the central mediastinum, with mass-effect upon the trachea There is an unchanged T12 compression fracture. No focal osseous lesion is evident Impression: 1. No definite sign of pulmonary embolism 2. Multiple large thyroid nodules with mass-effect upon the trachea and extension into the central mediastinum. A thyroid ultrasound is recommended for further evaluation as thyroid carcinoma is possible 3. Mild emphysema 4. Bilateral lower lobe atelectasis adjacent to a large hiatal hernia Electronically signed by Amos Fernández 12-24-2024 6:41 PM
[2024-12-24] MEDS: PANTOprazole 80 MG in DEXTROSE 5% 100 ML IV ONE (19:13)
[2024-12-24] MEDS: PANTOPRAZOLE BOLUS/DRIP IV STA (19:40)
[2024-12-24] MEDS: PANTOprazole 40 MG in DEXTROSE 5% MINI-B 100 ML IV SCH (19:40)
[2024-12-24 19:43] LABS: Influenza A virus by PCR Negative (Neg); Influenza B virus by PCR Negative (Neg); RSV by PCR Negative (Neg); SARS CoV2 RNA(COVID-19) Ceph NEGATIVE (Negative)
--- NOTE | 2024-12-24 20:22 | History & Physical Report ---
Date of Service December 24, 2024 Assessment & Plan (1) Symptomatic anemia: Plan: 1 unit of packed RBCs has been ordered Trend H&H Possible GI bleed Consult GI Continue IV PPI (2) Status post right knee replacement: Plan: PT and OT consult (3) Seizure disorder: Plan: Continue Keppra (4) Multinodular goiter: Plan: Continue methimazole Reviewed the CT findings with her daughter. Appears as though there may be some enlargement with some encroachment upon the trachea Will need follow-up with ENT and endocrinology (5) Diverticular disease: Plan: Patient just finished a course of Augmentin The left lower quadrant discomfort has resolved Plan Patient is a full code. This was discussed with the patient and her daughter VTE prophylaxis will utilize SCDs and avoid aspirin and anticoagulants for now Total of 80 minutes was spent in diagnostic review, discussion with other providers and care plan History of Present Illness Chief Complaint: Generalized weakness, shortness of breath Primary Care Provider: Elvia Rodriguez MD Malinda Kenney is a 79-year-old female with a history of osteoarthritis with recent right total knee arthroplasty done in November/2024, multi nodular goiter, hyperthyroidism on methimazole, hypertension, seizure disorder, depression and glaucoma. Patient presents to the ED tonight with her daughter. She has had progressive weakness and shortness of breath. She felt pretty good postoperatively but has had progressive shortness of breath with ambulation getting worse over the past couple days. She was diagnosed with mild diverticulitis and finished a course of Augmentin 2 days ago. She has some mild epigastric discomfort but the left lower quadrant discomfort has resolved. She does have black stools but they are formed and she is on iron. She denies any hematuria or any other source of bleeding. On presentation her hemoglobin was 7.0. She was typed and crossed for 1 unit of packed RBCs. Hemoccult testing in the ED was positive. CT PE study was negative for pulmonary embolism. She has a large hiatal hernia with most of if not all of her stomach involved. CT scan of the abdomen shows no acute findings. There is no evidence of ongoing diverticulitis. Patient was given a PPI/pantoprazole bolus and is on a drip currently. Patient is referred for admission and further workup. Allergies Allergy/AdvReac Type Severity Reaction Status Date / Time clams Allergy Severe Dyspepsia, Verified 03/06/25 19:29 abdominal pain Home Medications Medication Instructions Recorded Confirmed Type calcium 500 mg (as 1 tab PO BID 04/24/22 12/24/24 History carbonate)-vitamin D3 5 mcg (200 unit) tablet (Calcium 500 + D) multivitamin with minerals 1 tab PO DAILY 04/24/22 12/24/24 History olopatadine 0.1 % eye drops 1 drp OPB DAILY PRN allergies 04/24/22 12/24/24 History vitamin B complex 1 tab PO DAILY 04/24/22 12/24/24 History L.acidop,casei,lactis,rham-B.lact,marcelle 1 cap PO QPM 05/17/23 12/24/24 History 625 mg (10 billion cell) capsule (Advanced Probiotic) methimazole 5 mg tablet 5 mg PO QAM 05/17/23 12/24/24 History latanoprost 0.005 % eye drops 1 drp OPR HS 09/04/23 12/24/24 History escitalopram oxalate 10 mg tablet 10 mg PO HS 09/01/24 12/24/24 History levetiracetam 1,000 mg tablet 1,000 mg PO BID 30 days #60 tabs 09/01/24 12/24/24 Rx pravastatin 20 mg tablet 20 mg PO HS 09/01/24 12/24/24 History aspirin 81 mg tablet,delayed 81 mg PO BID 42 days #0 tabs 11/27/24 12/24/24 Rx release cyclobenzaprine 10 mg tablet 10 mg PO BID PRN muscle spasm #20 11/28/24 12/24/24 Rx tabs acetaminophen 500 mg tablet 1,000 mg PO Q6H PRN Pain 11/29/24 12/24/24 History ferrous sulfate 325 mg (65 mg 325 mg PO BIDM 30 days #60 tabs 12/01/24 12/24/24 Rx iron) tablet,delayed release Past Med/Surg History Problem List (Updated 12/24/24 @ 20:19 by Charlie Da Silva DO) Symptomatic anemia Hypotension S/P total knee replacement (Acute) Dizziness (Acute) Status post right knee replacement (~11/2024) Prepatellar bursitis, left knee Encounter for pre-operative examination Anxiety Osteoarthritis of right knee Seizure disorder Osteoporosis Hyperthyroidism Medical History Vasovagal episode Hx Hyperthyroidism Taking Methimazole Tachycardia (09/2024) [facility] [place] ER visit > discussed f/u with PCP + neuro (recent 72 hour heart monitor mentioned) Osteoporosis Anxiety History of TIAs (2021) Possible Follows with [facility] neuro Seizure disorder Most recent seizure 10+ years ago Taking Levetiracetam Follows with [facility] neuro Osteoarthritis Multinodular goiter Arthritis Hiatal hernia Diverticular disease Hx of basal cell carcinoma s/p excision Glaucoma B/L Surgical History History of anesthesia reaction Difficulty waking & low BP requiring additional days stay during left knee surgery 2022 History of total left knee replacement (TKR) (06/28/23) Left TKA (06/28/23): SAB at L3/4 (1 attempt) + regional at [facility] [place] History of tonsillectomy History of tooth extraction Hx of cataract surgery R/L History of colonoscopy Hx laparoscopic cholecystectomy (07/2019) Laparoscopic Cholecystectomy (08/06/19): Grade 1 view, MAC#3, ETT 7.0, atraumatic Hx of basal cell carcinoma excision History of elbow surgery Right x2 (removal of hardware) Family History Daughter Breast cancer Social History Smoking Status: Never smoker Second Hand Exposure: No; Do You Dip or Chew Tobacco: No; Hx Alcohol Use: Yes Alcohol type: wine Hx Substance Use: No Preferred Language: P[place] Communication Ability: Effective Computer Networker Required: No Beliefs That Will Affect Care: None marital status: Current Living Situation: Alone Current Living Situation Comment: indep living current occupational status: retired How many Children do You have: 1 Feels Safe at Home: Yes Assistive Devices: Walker Review of Systems Review of Systems: Constitutional- no fever; no weight loss, occ chills Eyes- no acute visual changes ENT- no sinus drainage; no pharyngitis Pulmonary- no cough, no wheezing, has shortness of breath Cardiac- no chest pain, no palpitations, no orthopnea, has dependent edema since her RTKR in Nov 2024 GI- no nausea, no vomiting, no diarrhea, no melena, no hematochezia, stools are black but she is on iron supplements. Recent treatment for diverticulitis. Just finished a course of Augmentin 2 days ago. Stools are formed - no dysuria, no hematuria Musculoskeletal- no arthralgias, no myalgias, minimal pain in the right knee. O nly takes Tylenol as needed Derm- no rashes, no new skin lesions, no changing skin lesions Lymphatics- no adenopathy Endocrine-has a known multifocal large goiter. Neuro- no headaches, no focal neurologic symptoms Psych- h/o of depression Physical Exam Physical Exam: General- adult elderly female seen at bedside. Her RN daughter is present and supplements the history, chronic ill appearance, pale Head- atraumatic Eyes- PERRL, EOMI, anicteric ENT- oropharynx clear Neck- supple, no JVD, no adenopathy, pos thyromegaly; carotids +2/2, no bruits appreciated Lungs- clear to auscultation and percussion Heart- regular rhythm; no murmur, no gallop, no rub appreciated Abdomen- normal bowel sounds, soft, mildly tender in the epigastrium, no rebound, no masses or hepatosplenomegaly Extremities-2+ edema on the right, 1+ edema on the left. She said she normally has edema but it is a little worse on the right side since the total knee replacement., no calf tenderness; peripheral pulses intact Neuro- alert, oriented x 3; PERRL, EOMI; no facial palsy; no dysarthria; motor 5/5 bilaterally; Skin- warm & dry Results & Data Results & Data Vital Signs (Past 12 Hours) Vital Signs Temp Pulse Pulse Resp BP BP Pulse Ox 12/24/24 19:30 109 H 24 128/58 L 97 12/24/24 19:00 110 H 22 124/68 98 12/24/24 18:31 109 H 22 141/74 H 98 12/24/24 17:30 102 H 22 132/67 99 12/24/24 17:00 103 H 20 161/91 H 98 12/24/24 16:36 107 H 12/24/24 16:18 36.5 C 107 H 20 139/73 100 12/24/24 16:18 100 12/24/24 16:18 36.5 C 107 H 20 139/73 100 O2 Del Method 12/24/24 19:30 Room Air 12/24/24 19:00 Room Air 12/24/24 18:31 Room Air 12/24/24 17:30 Room Air 12/24/24 17:00 Room Air 12/24/24 16:36 12/24/24 16:18 Room Air 12/24/24 16:18 Room Air 12/24/24 16:18 Room Air Diagnostic Findings Laboratory Results WBC 11.15 K/ul (4.8-10.8) H 12/24/24 17:29 RBC 2.13 M/uL (4.20-5.40) L 12/24/24 17:29 Hgb 7.0 g/dl (12.0-16.0) L 12/24/24 17:29 Hct 21.7 % (37.0-47.0) L 12/24/24 17:29 MCV 101.9 fL (80.0-100.0) H 12/24/24 17:29 MCH 32.9 pg (25.0-34.0) 12/24/24 17:29 MCHC 32.3 g/dL (32.0-36.0) 12/24/24 17:29 RDW Std Deviation 59.7 fL (36.4-46.3) H 12/24/24 17:29 RDW Coeff of Bhavesh 16.2 % (11.5-14.5) H 12/24/24 17:29 Plt Count 312 K/uL (130-400) 12/24/24 17:29 MPV 9.0 fL (9.4-12.4) L 12/24/24 17:29 Immature Gran % (Auto) 0.5 % 12/24/24 17:29 Neut % (Auto) 71.7 % 12/24/24 17:29 Lymph % (Auto) 15.6 % 12/24/24 17:29 [place] % (Auto) 10.6 % 12/24/24 17:29 Eos % (Auto) 0.9 % 12/24/24 17:29 Baso % (Auto) 0.7 % 12/24/24 17:29 Neut # (Auto) 7.99 K/uL (1.40-6.50) H 12/24/24 17:29 Lymph # (Auto) 1.74 K/uL (1.20-3.40) 12/24/24 17:29 [place] # (Auto) 1.18 K/uL (0.11-0.59) H 12/24/24 17:29 Eos # (Auto) 0.10 K/uL (0.00-0.50) 12/24/24 17:29 Baso # (Auto) 0.08 K/uL (0.00-0.20) 12/24/24 17:29 Immature Gran # (Auto) 0.06 K/uL (0.01-0.20) 12/24/24 17:29 Absolute Nucleated RBC Cancelled 12/24/24 16:30 Nucleated RBC % (auto) Cancelled 12/24/24 16:30 Neutrophils % (Manual) Cancelled 12/24/24 16:30 Band Neutrophils % Cancelled 12/24/24 16:30 Lymphocytes % (Manual) Cancelled 12/24/24 16:30 Prolymphocyte % Cancelled 12/24/24 16:30 Reactive Lymphs % (Man) Cancelled 12/24/24 16:30 Monocytes % (Manual) Cancelled 12/24/24 16:30 Eosinophils % (Manual) Cancelled 12/24/24 16:30 Basophils % (Manual) Cancelled 12/24/24 16:30 Metamyelocytes % (Man) Cancelled 12/24/24 16:30 Myelocytes % (Man) Cancelled 12/24/24 16:30 Promyelocytes % (Man) Cancelled 12/24/24 16:30 Blast Cells % (Manual) Cancelled 12/24/24 16:30 Plasma Cell % (Manual) Cancelled 12/24/24 16:30 Other Cells % Cancelled 12/24/24 16:30 Nucleated RBC % Cancelled 12/24/24 16:30 Neutrophils # (Manual) Cancelled 12/24/24 16:30 Band Neutrophils # Cancelled 12/24/24 16:30 Total Absolute Neuts Cancelled 12/24/24 16:30 Lymphocytes # (Manual) Cancelled 12/24/24 16:30 Prolymphocyte # Cancelled 12/24/24 16:30 Reactive Lymphs # Cancelled 12/24/24 16:30 Total Abs Lymphocytes Cancelled 12/24/24 16:30 Monocytes # (Manual) Cancelled 12/24/24 16:30 Eosinophils # (Manual) Cancelled 12/24/24 16:30 Basophils # (Manual) Cancelled 12/24/24 16:30 Metamyelocytes # (Man) Cancelled 12/24/24 16:30 Myelocytes # (Manual) Cancelled 12/24/24 16:30 Promyelocytes # (Man) Cancelled 12/24/24 16:30 Blast Cells # (Man) Cancelled 12/24/24 16:30 Plasma Cell # (Manual) Cancelled 12/24/24 16:30 Other Cells # Cancelled 12/24/24 16:30 Nucleated RBCs # (Man) Cancelled 12/24/24 16:30 Hypersegmented Neuts Cancelled 12/24/24 16:30 Hyposegmented Neuts Cancelled 12/24/24 16:30 Hypogranular Neuts Cancelled 12/24/24 16:30 Large Granular Lymphs Cancelled 12/24/24 16:30 # Lrg Granular Lymphs Cancelled 12/24/24 16:30 Hairy Cells Cancelled 12/24/24 16:30 Smudge Cells Cancelled 12/24/24 16:30 Toxic Granulation Cancelled 12/24/24 16:30 Toxic Vacuolation Cancelled 12/24/24 16:30 Dohle Bodies Cancelled 12/24/24 16:30 Don Rods Cancelled 12/24/24 16:30 Platelet Estimate Cancelled 12/24/24 16:30 Hypogranular Platelets Cancelled 12/24/24 16:30 Giant Platelets Cancelled 12/24/24 16:30 Platelet Satelliting Cancelled 12/24/24 16:30 RBC Morphology Cancelled 12/24/24 16:30 Polychromasia 2+ 12/24/24 17:29 Hypochromasia Cancelled 12/24/24 16:30 Poikilocytosis Cancelled 12/24/24 16:30 Basophilic Stippling Cancelled 12/24/24 16:30 Anisocytosis Cancelled 12/24/24 16:30 Microcytosis Cancelled 12/24/24 16:30 Macrocytosis Cancelled 12/24/24 16:30 Spherocytes Cancelled 12/24/24 16:30 Pappenheimer Bodies Cancelled 12/24/24 16:30 Sickle Cells Cancelled 12/24/24 16:30 Target Cells Cancelled 12/24/24 16:30 Tear Drop Cells Cancelled 12/24/24 16:30 Ovalocytes Cancelled 12/24/24 16:30 Stomatocytes 1+ 12/24/24 17:29 Kern-Bell Bodies Cancelled 12/24/24 16:30 Echinocytes Cancelled 12/24/24 16:30 Acanthocytes (Spur) Cancelled 12/24/24 16:30 Rouleaux Cancelled 12/24/24 16:30 RBC Agglutinates Cancelled 12/24/24 16:30 Schistocytes Cancelled 12/24/24 16:30 Sezary Cell Cancelled 12/24/24 16:30 PT 10.6 Seconds (9.0-12.0) 12/24/24 17:29 INR 1.0 (0.9-1.1) 12/24/24 17:29 APTT 21 Seconds (21-31) 12/24/24 17:29 PTT Ratio 0.8 12/24/24 17:29 Sodium 140 mmol/L (136-145) 12/24/24 16:30 Potassium 3.9 mmol/L (3.5-5.1) 12/24/24 16:30 Chloride 107 mmol/L (98-107) 12/24/24 16:30 Carbon Dioxide 26 mmol/L (21-32) 12/24/24 16:30 Anion Gap 7 (3-11) 12/24/24 16:30 BUN 22 mg/dl (6-23) 12/24/24 16:30 Creatinine 0.52 mg/dl (0.6-1.2) L 12/24/24 16:30 Est Cr Clr Drug Dosing 88.3 ml/min 12/24/24 16:30 eGFR 95.63 12/24/24 16:30 BUN/Creatinine Ratio 42.3 (10-20) H 12/24/24 16:30 Glucose 112 mg/dl (70-99(Fasting)) H 12/24/24 16:30 Calcium 8.5 mg/dl (8.6-10.3) L 12/24/24 16:30 Magnesium 2.0 mg/dl (1.7-2.4) 12/24/24 16:30 Total Bilirubin 0.4 mg/dl (0.2-1.0) 12/24/24 16:30 AST 14 U/L (13-39) 12/24/24 16:30 ALT 12 U/L (7-52) 12/24/24 16:30 Alkaline Phosphatase 67 U/L (34-104) 12/24/24 16:30 Troponin I High Sens 5.4 pg/ml (0-14) 12/24/24 16:30 Total Protein 5.7 gm/dl (6.0-8.3) L 12/24/24 16:30 Albumin 3.6 gm/dl (3.4-5.0) 12/24/24 16:30 Globulin 2.1 gm/dl (2.5-4.0) L 12/24/24 16:30 Albumin/Globulin Ratio 1.7 (0.9-2) 12/24/24 16:30 TSH 1.808 uIu/ml (0.300-4.500) 12/24/24 16:30 SARS-CoV-2 (PCR) NEGATIVE (Negative) 12/24/24 18:40 Influenza Type A (PCR) Negative (Neg) 12/24/24 18:40 Influenza Type B (PCR) Negative (Neg) 12/24/24 18:40 RSV (RT-PCR) Negative (Neg) 12/24/24 18:40 Blood Parasites ID Cancelled 12/24/24 16:30 Blood Type O Positive 12/24/24 19:06 Antibody Screen NEGATIVE 12/24/24 19:06 Crossmatch See Detail 12/24/24 19:06 Impressions Chest CTA 12/24/24 16:58 Technique: Axial computed tomography images were obtained of the chest after the administration of intravenous contrast according to the CT angiogram protocol Comparison is made to the prior chest CT dated 07/09/2019 Findings: There is no definite sign of pulmonary embolism. There is mild emphysema. There is no sign of pneumonia. There is bilateral lower lobe atelectasis adjacent to a large hiatal hernia. There is no pleural effusion or pneumothorax. There is no sign of pulmonary fibrosis or other diffuse interstitial process. No endobronchial lesion is seen There is no mediastinal, hilar, or axillary adenopathy. The thoracic aorta appears unremarkable with no sign of aneurysm or dissection. There is no pericardial effusion There are numerous thyroid nodules, with prominent enlargement of the left thyroid lobe that extends into the central mediastinum, with mass-effect upon the trachea There is an unchanged T12 compression fracture. No focal osseous lesion is evident Impression: 1. No definite sign of pulmonary embolism 2. Multiple large thyroid nodules with mass-effect upon the trachea and extension into the central mediastinum. A thyroid ultrasound is recommended for further evaluation as thyroid carcinoma is possible 3. Mild emphysema 4. Bilateral lower lobe atelectasis adjacent to a large hiatal hernia Electronically signed by Amos Fernández 12-24-2024 6:41 PM Abdomen/Pelvis CT 12/24/24 17:06 Technique: Axial computed tomography images were obtained of the abdomen and pelvis after the administration of intravenous and oral contrast. Comparison is made to the prior CT dated 07/08/2019. Findings: The liver is enlarged measuring 21.2 cm craniocaudal. There is no sign of cirrhosis or significant fatty infiltration. No liver mass lesion is seen. The portal vein is patent. The gallbladder has been removed. No bile duct dilatation is noted. The spleen is of normal size. No focal splenic lesion is evident. The pancreas appears normal with no sign of acute or chronic pancreatitis and no mass lesion noted. The pancreatic duct is of normal caliber. The adrenal glands appear unremarkable. No definite renal or proximal ureteral calculi are seen on this contrast-enhanced study. There is no hydronephrosis or perinephric stranding. No renal mass lesion is identified. There is a new small 3 mm right renal cyst. The abdominal aorta is of normal caliber. No abdominal adenopathy is seen. Again seen is a large hiatal hernia. This contains the entire stomach as well as small bowel loops and part of the pancreas. The entry of small bowel is new. There is no sign of small bowel obstruction. There is diverticulosis without evidence of diverticulitis. No free intraperitoneal fluid or air is identified. No distal ureteral or bladder calculi are seen. No bladder mass lesion is evident. The iliac arteries are of normal caliber. No pelvic adenopathy is noted. There are small uterine leiomyomas Lumbar scoliosis and degenerative disc disease is seen. No fracture is identified. No focal osseous lesion is seen Impression: 1. Large hiatal hernia containing the entire stomach as well as small bowel loops and part of the pancreas 2. Hepatomegaly 3. New small right renal cyst 4. Diverticulosis without evidence of diverticulitis 5. Small uterine leiomyomas Electronically signed by Amos Fernández 12-24-2024 6:37 PM Chest X-Ray 12/24/24 17:07 INDICATION: Shortness of breath. TECHNIQUE: Frontal radiograph of the chest. COMPARISON: 09/23/2024. FINDINGS: Cardiomegaly. Large hiatal hernia. Pulmonary vasculature appear within normal limits. Subsegmental atelectasis in the lung bases. No infiltrate, pleural effusion or pneumothorax. No acute osseous abnormality evident. IMPRESSION: No acute cardiopulmonary process. Large hiatal hernia. Electronically signed by Jenaro Agee 12-24-2024 6:10 PM
[2024-12-24] MEDS ORDERED: NON-FORMULARY MEDICATION (Olopatadine 0.1 % Drops) OPB PRN (22:03)
[2024-12-24] MEDS ORDERED: ONDANSETRON INJ 2 MG/ML 2 ML VIAL IV PRN (22:03)
[2024-12-24] MEDS: LATANOPROST 0.005% OP SOLN 2.5 ML BTL OPR SCH (22:33)
[2024-12-24] MEDS: levETIRAcetam 500 MG TAB PO SCH (22:34)
[2024-12-24] MEDS: ADVANCED PROBIOTIC 625 MG CAPSULE PO SCH (22:34)
[2024-12-24] MEDS: PRAVASTATIN SOD 20 MG TAB PO SCH (22:34)
[2024-12-24] MEDS: CALCIUM 600MG + VIT D 400 IU TAB PO SCH (22:35)
[2024-12-24] MEDS: ESCITALOPRAM OXALATE 10 MG TAB PO SCH (22:35)
[2024-12-24] MEDS: SODIUM CHLORIDE 0.9% 500 ML IV SCH (22:38)
--- NOTE | 2024-12-24 22:54 | Emergency Department Note ---
History of Present Illness General Chief Complaint: Cardiac Assessment Stated Complaint: CARDIAC ASSESMENT Time Seen by Provider: 12/24/24 16:57 History of Present Illness Provider Complaint: + palpitations Onset (ago): month(s) (1) Duration: + Worsening Context: + occurred during rest Arrhythmia history: no on anti-coagulants Associated symptoms: + shortness of breath; no chest pain, no syncope, no near- syncope, no nausea, no vomiting or no cough HPI narrative: Black stools. Patient states she has been taking iron. Home Medications Medication Instructions Recorded Confirmed Type calcium 500 mg (as 1 tab PO BID 04/24/22 12/24/24 History carbonate)-vitamin D3 5 mcg (200 unit) tablet (Calcium 500 + D) multivitamin with minerals 1 tab PO DAILY 04/24/22 12/24/24 History olopatadine 0.1 % eye drops 1 drp OPB DAILY PRN allergies 04/24/22 12/24/24 History vitamin B complex 1 tab PO DAILY 04/24/22 12/24/24 History L.acidop,casei,lactis,rham-B.lact,marcelle 1 cap PO QPM 05/17/23 12/24/24 History 625 mg (10 billion cell) capsule (Advanced Probiotic) methimazole 5 mg tablet 5 mg PO QAM 05/17/23 12/24/24 History latanoprost 0.005 % eye drops 1 drp OPR HS 09/04/23 12/24/24 History escitalopram oxalate 10 mg tablet 10 mg PO HS 09/01/24 12/24/24 History levetiracetam 1,000 mg tablet 1,000 mg PO BID 30 days #60 tabs 09/01/24 12/24/24 Rx pravastatin 20 mg tablet 20 mg PO HS 09/01/24 12/24/24 History aspirin 81 mg tablet,delayed 81 mg PO BID 42 days #0 tabs 11/27/24 12/24/24 Rx release cyclobenzaprine 10 mg tablet 10 mg PO BID PRN muscle spasm #20 11/28/24 12/24/24 Rx tabs acetaminophen 500 mg tablet 1,000 mg PO Q6H PRN Pain 11/29/24 12/24/24 History ferrous sulfate 325 mg (65 mg 325 mg PO BIDM 30 days #60 tabs 12/01/24 12/24/24 Rx iron) tablet,delayed release Allergies Allergy/AdvReac Type Severity Reaction Status Date / Time clams Allergy Severe Dyspepsia, Verified 12/24/24 19:29 abdominal pain Past Med/Surg History Problem List (Updated 12/24/24 @ 22:53 by Pieter Gupta MD) GI bleed (Acute) Symptomatic anemia Hypotension S/P total knee replacement (Acute) Dizziness (Acute) Status post right knee replacement (~11/2024) Prepatellar bursitis, left knee Encounter for pre-operative examination Anxiety Osteoarthritis of right knee Seizure disorder Osteoporosis Hyperthyroidism Medical History Vasovagal episode Hx Hyperthyroidism Taking Methimazole Tachycardia (09/2024) [facility] ER visit > discussed f/u with PCP + neuro (recent 72 hour heart monitor mentioned) Osteoporosis Anxiety History of TIAs (2021) Possible Follows with [facility] neuro Seizure disorder Most recent seizure 10+ years ago Taking Levetiracetam Follows with [facility] neuro Osteoarthritis Multinodular goiter Arthritis Hiatal hernia Diverticular disease Hx of basal cell carcinoma s/p excision Glaucoma B/L Surgical History History of anesthesia reaction Difficulty waking & low BP requiring additional days stay during left knee surgery 2022 History of total left knee replacement (TKR) (06/28/23) Left TKA (06/28/23): SAB at L3/4 (1 attempt) + regional at [facility] History of tonsillectomy History of tooth extraction Hx of cataract surgery R/L History of colonoscopy Hx laparoscopic cholecystectomy (07/2019) Laparoscopic Cholecystectomy (08/06/19): Grade 1 view, MAC#3, ETT 7.0, atraumatic Hx of basal cell carcinoma excision History of elbow surgery Right x2 (removal of hardware) Family History Daughter Breast cancer Social History Smoking Status: Never smoker Second Hand Exposure: No; Do You Dip or Chew Tobacco: No; Hx Alcohol Use: Yes Alcohol type: wine Hx Substance Use: No Preferred Language: [place] Communication Ability: Effective Administrative Law Judge Required: No Beliefs That Will Affect Care: None marital status: Current Living Situation: Alone Current Living Situation Comment: indep living current occupational status: retired How many Children do You have: 1 Feels Safe at Home: Yes Assistive Devices: Walker Physical Exam 2 Vital Signs: Vital Signs - 24 hr 12/24/24 16:18 12/24/24 16:18 12/24/24 16:18 Temperature 36.5 C 36.5 C Temperature Source Oral Oral Pulse Rate 107 H Pulse Rate [Apical ] 107 H Pulse Rate from Sp O2 Sensor Pulse Rhythm Regular Pulse Rhythm [Apic al] Regular Pulse Strength Normal Pulse Strength [Ap ical] Normal Respiratory Rate 20 20 Respiratory Effort / Characteristics Non-Labored Sponta neous Non-Labored Sponta neous Respiratory Depth Normal Normal Respiratory Patter n Regular Regular Blood Pressure 139/73 Blood Pressure [Ri ght Arm] 139/73 Blood Pressure Nadiya n 95 Blood Pressure Nadiya n [Right Arm] 95 Blood Pressure Pos ition Lying Blood Pressure Pos ition [Right Arm] Semi-fowlers Pulse Oximetry 100 100 100 Oxygen Delivery Me thod Room Air Room Air Room Air Sepsis Recent Feve r Within 48 Hours No Sepsis New/Unexpla ined Change in Men leandro Status N/A Sepsis Action Take n by Nursing No Action Required 12/24/24 16:36 12/24/24 17:00 12/24/24 17:30 Temperature Temperature Source Pulse Rate 107 H 103 H 102 H Pulse Rate [Apical ] Pulse Rate from Sp O2 Sensor Pulse Rhythm Pulse Rhythm [Apic al] Pulse Strength Pulse Strength [Ap ical] Respiratory Rate 20 22 Respiratory Effort / Characteristics Respiratory Depth Respiratory Patter n Blood Pressure 161/91 H 132/67 Blood Pressure [Ri ght Arm] Blood Pressure Nadiya n 106 78 Blood Pressure Nadiya n [Right Arm] Blood Pressure Pos ition Blood Pressure Pos ition [Right Arm] Pulse Oximetry 98 99 Oxygen Delivery Me thod Room Air Room Air Sepsis Recent Feve r Within 48 Hours Sepsis New/Unexpla ined Change in Men leandro Status Sepsis Action Take n by Nursing 12/24/24 18:31 12/24/24 19:00 12/24/24 19:30 Temperature Temperature Source Pulse Rate 109 H 110 H 109 H Pulse Rate [Apical ] Pulse Rate from Sp O2 Sensor 108 H Pulse Rhythm Pulse Rhythm [Apic al] Pulse Strength Pulse Strength [Ap ical] Respiratory Rate 22 22 24 Respiratory Effort / Characteristics Respiratory Depth Respiratory Patter n Blood Pressure 141/74 H 124/68 128/58 L Blood Pressure [Ri ght Arm] Blood Pressure Nadiya n 107 94 81 Blood Pressure Nadiya n [Right Arm] Blood Pressure Pos ition Blood Pressure Pos ition [Right Arm] Pulse Oximetry 98 98 97 Oxygen Delivery Me thod Room Air Room Air Room Air Sepsis Recent Feve r Within 48 Hours Sepsis New/Unexpla ined Change in Men leandro Status Sepsis Action Take n by Nursing 12/24/24 20:00 12/24/24 20:34 Temperature Temperature Source Pulse Rate 112 H 109 H Pulse Rate [Apical ] Pulse Rate from Sp O2 Sensor 111 H Pulse Rhythm Pulse Rhythm [Apic al] Pulse Strength Pulse Strength [Ap ical] Respiratory Rate 17 Respiratory Effort / Characteristics Respiratory Depth Respiratory Patter n Blood Pressure 109/64 Blood Pressure [Ri ght Arm] Blood Pressure Nadiya n 79 Blood Pressure Nadiya n [Right Arm] Blood Pressure Pos ition Blood Pressure Pos ition [Right Arm] Pulse Oximetry 97 Oxygen Delivery Me thod Sepsis Recent Feve r Within 48 Hours Sepsis New/Unexpla ined Change in Men leandro Status Sepsis Action Take n by Nursing Physical Exam: Physical Exam GENERAL: oriented to person, place, and time. appears well-developed and well- nourished. HENT: Exam performed. - Head: Normocephalic and atraumatic. EYES: Conjunctivae and EOM are normal. Right eye exhibits no discharge. Left eye exhibits no discharge. No scleral icterus. NECK: Normal range of motion. Neck supple. No JVD present. CV: Tachycardic rate, regular rhythm, normal heart sounds and intact distal pulses. There is no peripheral edema. Palpable radial pulses bue. PULM/CHEST: Effort normal and breath sounds normal. No respiratory distress. No stridor. no wheezes. no rales. ABD: The abdomen is soft. There is tenderness to palpation of the left lower quadrant NEURO: Motor and sensation grossly intact. SKIN: Skin is warm and dry. He is not diaphoretic. PSYCH: normal mood and affect. Behavior is normal. Judgment and thought content normal. Course Course 1656: The patient was evaluated in room A9. A complete history and physical exam was performed Cardiac monitoring: An order was placed for continuous cardiac monitoring. The monitor shows a rate of 100 with sinus rhythm interpreted by me 1830: Vital signs stable. Labs are significant for hemoglobin of 7. Coagulation studies are unremarkable. Renal function and electrolytes are unremarkable. Rectal exam was performed with female nursing air brush decorator Miryam at bedside. Patient is Hemoccult positive. Patient was started on Protonix bolus and drip. Will plan on transfusing patient 1 unit packed red blood cells. CT imaging pending. 0: Vital signs stable. Imaging unremarkable. Patient be admitted to the hospitalist team. Administered Medications Calcium/Vitamin D (Calcium 600mg + Vit D 400 Iu Tab) 1 tab PO BID JUAN FRANCISCO Stop: 01/23/25 22:02 Last Admin: 12/24/24 22:35 Dose: 1 tab Documented By: ENA Escitalopram Oxalate (Escitalopram Oxalate 10 Mg Tab) 10 mg PO HS JUAN FRANCISCO Stop: 01/23/25 22:02 Last Admin: 12/24/24 22:35 Dose: 10 mg Documented By: NEA Pantoprazole Sodium 40 mg/ (Dextrose) 100 mls @ 20 mls/hr IV Q5H JUAN FRANCISCO Stop: 01/23/25 18:59 Last Admin: 12/24/24 19:40 Dose: 8 mg/hr, 20 mls/hr Documented By: DIANA Sodium Chloride (Nss) 500 mls @ 80 mls/hr IV .Q6H15M JUAN FRANCISCO Stop: 12/25/24 04:17 Last Admin: 12/24/24 22:38 Dose: 80 mls/hr Documented By: ENA Lactobacillus Acidophilus (Advanced Probiotic 625 Mg Capsule) 1,250 mg PO QPM JUAN FRANCISCO Stop: 01/23/25 22:02 Last Admin: 12/24/24 22:34 Dose: Not Given Documented By: ENA Latanoprost (Latanoprost 0.005% Op Soln 2.5 Ml Btl) 1 drops OPR HS JUAN FRANCISCO Stop: 01/23/25 22:02 Last Admin: 12/24/24 22:33 Dose: 1 drops Documented By: ENA Levetiracetam (Levetiracetam 500 Mg Tab) 1,000 mg PO BID JUAN FRANCISCO Stop: 01/23/25 22:02 Last Admin: 12/24/24 22:34 Dose: 1,000 mg Documented By: ENA Pravastatin Sodium (Pravastatin Sod 20 Mg Tab) 20 mg PO HS JUAN FRANCISCO Stop: 01/23/25 22:02 Last Admin: 12/24/24 22:34 Dose: 20 mg Documented By: ENA Discontinued Medications Pantoprazole Sodium 80 mg/ (Dextrose) 120 mls @ 480 mls/hr IV NOW ONE Stop: 12/24/24 18:46 Last Infusion: 12/24/24 19:40 Dose: Infused Documented By: Admin: 12/24/24 19:13 Dose: 480 mls/hr Documented By: DIANA Ioversol (Optiray 320 125ml) 115 ml IV ONCE ONE Stop: 12/24/24 17:55 Last Admin: 12/24/24 17:54 Dose: 115 ml Documented By: JOAN Pantoprazole Sodium (Pantoprazole Bolus/Drip) 1 each IV NOW STA Stop: 12/24/24 18:33 Last Admin: 12/24/24 19:40 Dose: Not Given Documented By: DIANA Medical Decision Making Laboratory Data Attestation: I reviewed the patient's lab results. 12/24/24 17:29 12/24/24 16:30 Lab Results 12/24/24 12/24/24 12/24/24 Range/Units 16:30 17:29 18:40 WBC Cancelled 11.15 H RBC Cancelled 2.13 L Hgb Cancelled 7.0 L Hct Cancelled 21.7 L MCV Cancelled 101.9 H MCH Cancelled 32.9 MCHC Cancelled 32.3 RDW Std Deviation Cancelled 59.7 H RDW Coeff of Bhavesh Cancelled 16.2 H Plt Count Cancelled 312 MPV Cancelled 9.0 L Immature Gran % (Auto) Cancelled 0.5 Neut % (Auto) Cancelled 71.7 Lymph % (Auto) Cancelled 15.6 Clare % (Auto) Cancelled 10.6 Eos % (Auto) Cancelled 0.9 Baso % (Auto) Cancelled 0.7 Neut # (Auto) Cancelled 7.99 H Lymph # (Auto) Cancelled 1.74 Clare # (Auto) Cancelled 1.18 H Eos # (Auto) Cancelled 0.10 Baso # (Auto) Cancelled 0.08 Immature Gran # (Auto) Cancelled 0.06 Absolute Nucleated RBC Cancelled Nucleated RBC % (auto) Cancelled Neutrophils % (Manual) Cancelled Band Neutrophils % Cancelled Lymphocytes % (Manual) Cancelled Prolymphocyte % Cancelled Reactive Lymphs % (Man) Cancelled Monocytes % (Manual) Cancelled Eosinophils % (Manual) Cancelled Basophils % (Manual) Cancelled Metamyelocytes % (Man) Cancelled Myelocytes % (Man) Cancelled Promyelocytes % (Man) Cancelled Blast Cells % (Manual) Cancelled Plasma Cell % (Manual) Cancelled Other Cells % Cancelled Nucleated RBC % Cancelled Neutrophils # (Manual) Cancelled Band Neutrophils # Cancelled Total Absolute Neuts Cancelled Lymphocytes # (Manual) Cancelled Prolymphocyte # Cancelled Reactive Lymphs # Cancelled Total Abs Lymphocytes Cancelled Monocytes # (Manual) Cancelled Eosinophils # (Manual) Cancelled Basophils # (Manual) Cancelled Metamyelocytes # (Man) Cancelled Myelocytes # (Manual) Cancelled Promyelocytes # (Man) Cancelled Blast Cells # (Man) Cancelled Plasma Cell # (Manual) Cancelled Other Cells # Cancelled Nucleated RBCs # (Man) Cancelled Hypersegmented Neuts Cancelled Hyposegmented Neuts Cancelled Hypogranular Neuts Cancelled Large Granular Lymphs Cancelled # Lrg Granular Lymphs Cancelled Hairy Cells Cancelled Smudge Cells Cancelled Toxic Granulation Cancelled Toxic Vacuolation Cancelled Dohle Bodies Cancelled Don Rods Cancelled Platelet Estimate Cancelled Hypogranular Platelets Cancelled Giant Platelets Cancelled Platelet Satelliting Cancelled RBC Morphology Cancelled Polychromasia Cancelled 2+ Hypochromasia Cancelled Poikilocytosis Cancelled Basophilic Stippling Cancelled Anisocytosis Cancelled Microcytosis Cancelled Macrocytosis Cancelled Spherocytes Cancelled Pappenheimer Bodies Cancelled Sickle Cells Cancelled Target Cells Cancelled Tear Drop Cells Cancelled Ovalocytes Cancelled Stomatocytes Cancelled 1+ Kern-Blue [place] Bodies Cancelled Echinocytes Cancelled Acanthocytes (Spur) Cancelled Rouleaux Cancelled RBC Agglutinates Cancelled Schistocytes Cancelled Sezary Cell Cancelled PT 10.6 (9.0-12.0) Seconds INR 1.0 (0.9-1.1) APTT 21 (21-31) Seconds PTT Ratio 0.8 Sodium 140 (136-145) mmol/L Potassium 3.9 (3.5-5.1) mmol/L Chloride 107 (98-107) mmol/L Carbon Dioxide 26 (21-32) mmol/L Anion Gap 7 (3-11) BUN 22 (6-23) mg/dl Creatinine 0.52 L (0.6-1.2) mg/dl Est Cr Clr Drug Dosing 88.3 ml/min eGFR 95.63 BUN/Creatinine Ratio 42.3 H (10-20) Glucose 112 H (70-99(Fasting)) mg/dl Calcium 8.5 L (8.6-10.3) mg/dl Magnesium 2.0 (1.7-2.4) mg/dl Total Bilirubin 0.4 (0.2-1.0) mg/dl AST 14 (13-39) U/L ALT 12 (7-52) U/L Alkaline Phosphatase 67 (34-104) U/L Troponin I High Sens 5.4 (0-14) pg/ml Total Protein 5.7 L (6.0-8.3) gm/dl Albumin 3.6 (3.4-5.0) gm/dl Globulin 2.1 L (2.5-4.0) gm/dl Albumin/Globulin Ratio 1.7 (0.9-2) TSH 1.808 (0.300-4.500) uIu/ml SARS-CoV-2 (PCR) NEGATIVE (Negative) Influenza Type A (PCR) Negative (Neg) Influenza Type B (PCR) Negative (Neg) RSV (RT-PCR) Negative (Neg) Blood Parasites ID Cancelled Blood Type Antibody Screen Crossmatch 12/24/24 Range/Units 19:06 WBC RBC Hgb Hct MCV MCH MCHC RDW Std Deviation RDW Coeff of Bhavesh Plt Count MPV Immature Gran % (Auto) Neut % (Auto) Lymph % (Auto) Clare % (Auto) Eos % (Auto) Baso % (Auto) Neut # (Auto) Lymph # (Auto) Clare # (Auto) Eos # (Auto) Baso # (Auto) Immature Gran # (Auto) Absolute Nucleated RBC Nucleated RBC % (auto) Neutrophils % (Manual) Band Neutrophils % Lymphocytes % (Manual) Prolymphocyte % Reactive Lymphs % (Man) Monocytes % (Manual) Eosinophils % (Manual) Basophils % (Manual) Metamyelocytes % (Man) Myelocytes % (Man) Promyelocytes % (Man) Blast Cells % (Manual) Plasma Cell % (Manual) Other Cells % Nucleated RBC % Neutrophils # (Manual) Band Neutrophils # Total Absolute Neuts Lymphocytes # (Manual) Prolymphocyte # Reactive Lymphs # Total Abs Lymphocytes Monocytes # (Manual) Eosinophils # (Manual) Basophils # (Manual) Metamyelocytes # (Man) Myelocytes # (Manual) Promyelocytes # (Man) Blast Cells # (Man) Plasma Cell # (Manual) Other Cells # Nucleated RBCs # (Man) Hypersegmented Neuts Hyposegmented Neuts Hypogranular Neuts Large Granular Lymphs # Lrg Granular Lymphs Hairy Cells Smudge Cells Toxic Granulation Toxic Vacuolation Dohle Bodies Don Rods Platelet Estimate Hypogranular Platelets Giant Platelets Platelet Satelliting RBC Morphology Polychromasia Hypochromasia Poikilocytosis Basophilic Stippling Anisocytosis Microcytosis Macrocytosis Spherocytes Pappenheimer Bodies Sickle Cells Target Cells Tear Drop Cells Ovalocytes Stomatocytes Kern-Blue [place] Bodies Echinocytes Acanthocytes (Spur) Rouleaux RBC Agglutinates Schistocytes Sezary Cell PT (9.0-12.0) Seconds INR (0.9-1.1) APTT (21-31) Seconds PTT Ratio Sodium (136-145) mmol/L Potassium (3.5-5.1) mmol/L Chloride (98-107) mmol/L Carbon Dioxide (21-32) mmol/L Anion Gap (3-11) BUN (6-23) mg/dl Creatinine (0.6-1.2) mg/dl Est Cr Clr Drug Dosing ml/min eGFR BUN/Creatinine Ratio (10-20) Glucose (70-99(Fasting)) mg/dl Calcium (8.6-10.3) mg/dl Magnesium (1.7-2.4) mg/dl Total Bilirubin (0.2-1.0) mg/dl AST (13-39) U/L ALT (7-52) U/L Alkaline Phosphatase (34-104) U/L Troponin I High Sens (0-14) pg/ml Total Protein (6.0-8.3) gm/dl Albumin (3.4-5.0) gm/dl Globulin (2.5-4.0) gm/dl Albumin/Globulin Ratio (0.9-2) TSH (0.300-4.500) uIu/ml SARS-CoV-2 (PCR) (Negative) Influenza Type A (PCR) (Neg) Influenza Type B (PCR) (Neg) RSV (RT-PCR) (Neg) Blood Parasites ID Blood Type O Positive Antibody Screen NEGATIVE Crossmatch See Detail Imaging Data Attestation: I personally reviewed and interpreted this imaging study as follows: My Impression: Chest x-ray negative. Airway clear. No pneumothorax. No consolidation. No cardiomegaly or cephalization.. No free air under the diaphragm. No fractures of the skeletal structures. Radiologist's Impression: Chest CTA 12/24/24 16:58 Technique: Axial computed tomography images were obtained of the chest after the administration of intravenous contrast according to the CT angiogram protocol Comparison is made to the prior chest CT dated 07/09/2019 Findings: There is no definite sign of pulmonary embolism. There is mild emphysema. There is no sign of pneumonia. There is bilateral lower lobe atelectasis adjacent to a large hiatal hernia. There is no pleural effusion or pneumothorax. There is no sign of pulmonary fibrosis or other diffuse interstitial process. No endobronchial lesion is seen There is no mediastinal, hilar, or axillary adenopathy. The thoracic aorta appears unremarkable with no sign of aneurysm or dissection. There is no pericardial effusion There are numerous thyroid nodules, with prominent enlargement of the left thyroid lobe that extends into the central mediastinum, with mass-effect upon the trachea There is an unchanged T12 compression fracture. No focal osseous lesion is evident Impression: 1. No definite sign of pulmonary embolism 2. Multiple large thyroid nodules with mass-effect upon the trachea and extension into the central mediastinum. A thyroid ultrasound is recommended for further evaluation as thyroid carcinoma is possible 3. Mild emphysema 4. Bilateral lower lobe atelectasis adjacent to a large hiatal hernia Electronically signed by Amos Fernández 12-24-2024 6:41 PM Abdomen/Pelvis CT 12/24/24 17:06 Technique: Axial computed tomography images were obtained of the abdomen and pelvis after the administration of intravenous and oral contrast. Comparison is made to the prior CT dated 07/08/2019. Findings: The liver is enlarged measuring 21.2 cm craniocaudal. There is no sign of cirrhosis or significant fatty infiltration. No liver mass lesion is seen. The portal vein is patent. The gallbladder has been removed. No bile duct dilatation is noted. The spleen is of normal size. No focal splenic lesion is evident. The pancreas appears normal with no sign of acute or chronic pancreatitis and no mass lesion noted. The pancreatic duct is of normal caliber. The adrenal glands appear unremarkable. No definite renal or proximal ureteral calculi are seen on this contrast-enhanced study. There is no hydronephrosis or perinephric stranding. No renal mass lesion is identified. There is a new small 3 mm right renal cyst. The abdominal aorta is of normal caliber. No abdominal adenopathy is seen. Again seen is a large hiatal hernia. This contains the entire stomach as well as small bowel loops and part of the pancreas. The entry of small bowel is new. There is no sign of small bowel obstruction. There is diverticulosis without evidence of diverticulitis. No free intraperitoneal fluid or air is identified. No distal ureteral or bladder calculi are seen. No bladder mass lesion is evident. The iliac arteries are of normal caliber. No pelvic adenopathy is noted. There are small uterine leiomyomas Lumbar scoliosis and degenerative disc disease is seen. No fracture is identified. No focal osseous lesion is seen Impression: 1. Large hiatal hernia containing the entire stomach as well as small bowel loops and part of the pancreas 2. Hepatomegaly 3. New small right renal cyst 4. Diverticulosis without evidence of diverticulitis 5. Small uterine leiomyomas Electronically signed by Amos Fernández 12-24-2024 6:37 PM Chest X-Ray 12/24/24 17:07 INDICATION: Shortness of breath. TECHNIQUE: Frontal radiograph of the chest. COMPARISON: 09/23/2024. FINDINGS: Cardiomegaly. Large hiatal hernia. Pulmonary vasculature appear within normal limits. Subsegmental atelectasis in the lung bases. No infiltrate, pleural effusion or pneumothorax. No acute osseous abnormality evident. IMPRESSION: No acute cardiopulmonary process. Large hiatal hernia. Electronically signed by Jenaro Agee 12-24-2024 6:10 PM ECG Data Attestation: I personally reviewed and interpreted this ECG as follows: Rate (beats per minute): 105 Rhythm: sinus tachycardia Findings: no ST depression, no ST elevation or no prolonged QT MDM Narrative 1657: The patient was evaluated in room A9. A complete history and physical exam was performed Cardiac monitoring: An order was placed for continuous cardiac monitoring. The monitor shows a rate of 100 with sinus rhythm interpreted by me 1830: Vital signs stable. Labs are significant for hemoglobin of 7. Coagulation studies are unremarkable. Renal function and electrolytes are unremarkable. Rectal exam was performed with female nursing air brush decorator Miryam at bedside. Patient is Hemoccult positive. Patient was started on Protonix bolus and drip. Will plan on transfusing patient 1 unit packed red blood cells. CT imaging pending. 1909: Vital signs stable. Imaging unremarkable. Patient be admitted to the hospitalist team. Impression & Plan GI bleed Critical Care Time Critical Care Time: Yes Total Critical Care Time: 77 I have personally spent greater than 77 minutes of critical care time in the direct management of this patient. This includes bedside care, interpretation of diagnostic studies, and testing, discussion with consultants, patient, and family members, and other required patient management activities. This 77 minutes is in excess of all separately billable procedures. Discharge Plan Visit Data Chief Complaint: Cardiac Assessment Stated Complaint: CARDIAC ASSESMENT ED Provider: Pieter Gupta Discharge Problem: GI bleed Patient Disposition: Admitted As Inpatient Discharge Instructions Interventions: ED Discharge Assessment Last Done: 12/24/24 21:23
[2024-12-24 23:03] LABS: BUN Creatinine Ratio 33.3 (10-20); Calcium 8.4 mg/dl (8.6-10.3); Creatinine Clr Calc Pharmacy 92.7 ml/min; Potassium 3.6 mmol/L (3.5-5.1)
[2024-12-25] MEDS: SODIUM CHLORIDE 0.9% 500 ML IV ONE (02:47)
[2024-12-25 02:58] LABS: Hematocrit (blood only) 21.8 % (37.0-47.0); Mean Corpuscular Hemoglobin 31.5 pg (25.0-34.0); Mean Corpuscular Hgb Conc 32.1 g/dL (32.0-36.0); Mean Corpuscular Volume 98.2 fL (80.0-100.0); Mean Platelet Volume 8.7 fL (9.4-12.4); Platelet Count 251 K/uL (130-400); RDW Coefficient of Variation 17.4 % (11.5-14.5); Red Blood Count 2.22 M/uL (4.20-5.40); White Blood Count 9.47 K/ul (4.8-10.8)
[2024-12-25 03:13] LABS: BUN Creatinine Ratio 27.3 (10-20); Calcium 7.9 mg/dl (8.6-10.3); Creatinine Clr Calc Pharmacy 80.9 ml/min; Potassium 3.7 mmol/L (3.5-5.1)
[2024-12-25] MEDS ORDERED: SODIUM CHLORIDE 0.9% 50 ML IV PRN (04:15)
[2024-12-25] MEDS ORDERED: SODIUM CHLORIDE 0.9% 100 ML IV PRN (04:15)
--- NOTE | 2024-12-25 07:24 | Electrocardiogram Report ---
Test Reason : Blood Pressure : */* mmHG Vent. Rate : 105 BPM Atrial Rate : 105 BPM P-R Int : 138 ms QRS Dur : 88 ms QT Int : 348 ms P-R-T Axes : 33 40 7 degrees QTcB Int : 459 ms Sinus tachycardia Otherwise normal ECG When compared with ECG of 29-Nov-2024 11:04, HR has increased by 26 bpm Confirmed by Reji Beavers ([id number]) on 12/25/2024 7:23:47 AM Referred By: REFERRED SELF Confirmed By: Reji Beavers
[2024-12-25] MEDS: methIMAzole 5 MG TABLET PO SCH (08:02)
[2024-12-25] MEDS: CEROVITE ADV FORMULA TAB PO SCH (08:03)
[2024-12-25] MEDS: VITAMIN B COMPLEX TAB PO SCH (08:03)
[2024-12-25] MEDS: ACETAMINOPHEN 500 MG TAB PO PRN (08:09)
--- NOTE | 2024-12-25 09:56 | Gastrointestinal Consultation ---
Date of Consultation December 25, 2024 Assessment & Plan (1) Symptomatic anemia: 79 year old female with history of osteoarthritis with recent right total knee arthroplasty done in November/2024, multi nodular goiter, hyperthyroidism on methimazole, hypertension, seizure disorder, depression, glaucoma admitted through the ED - symptomatic anemia. She notes dark stools on oral iron therapy but drop in HGB to 7 from 14.3 in October [address] showes large HH but no active bleeding identified. DDX discussed: gastritis, PUD, Darius erosion, AVM, polyps vs other NPO IV PPI EGD this AM Trend H&H Monitor and document GI output Transfuse per primary service Hold ASA Pending results of EGD, consider inpatient colonoscopy We appreciate assistance in the management of any serological abnormality and corrections to include: hemoglobin >7, INR <2, platelets >50,000, potassium levels >3.5 but <5.3, and sodium levels within 5 points of the reference range prior to endoscopic evaluation. I spent a total of 60 minutes on the date of service in review of patient's record, and previously obtained information in person and appropriate medical visit, discussion and education of plan, with patient and/or caregiver, placing orders for tests/referral/procedures as medically necessary and documentation of pertinent clinical information in patient's medical records for their visit today. Supervising Physician Co-Signing Physician Notes I saw and examined this patient with our nurse practitioner and agree with her assessment and plan. Significant anemia over short period of time with heme positive stool. Need to exclude significant GI blood loss as cause. Will start with upper endoscopy today if negative then proceed with colonoscopy. History of Present Illness Reason for Consultation: Symptomatic anemia, gi bleed Requesting Physician: Antelmo Dunham MD Attending Physician: Antelmo Dunham MD History of Present Illness 79 year old female with history of osteoarthritis with recent right total knee arthroplasty done in November/2024, multi nodular goiter, hyperthyroidism on methimazole, hypertension, seizure disorder, depression, glaucoma admitted through the ED - symptomatic anemia. GI was asked to evaluate for GI bleeding. Pt was seen and evaluated, chart reviewed. Suggests she has seen dark black stools about once daily for a few weeks. She has had some mild upper abd discomfort which she explains as nausea. No vomiting. No abd pain. Denies any BRBPR. Her stools are heme positive. HGB 14.3 in October --> 7 --> 2 units BUN 15 Taking 2 baby ASA daily Denies any other NSAIDS No report of ETOH or tobacco No blood thinners She was recently on ABX for suspected diverticulitis. CT this admission does not show diverticulitits. CTAP 2024: Large hiatal hernia containing the entire stomach as well as small bowel loops and part of the pancreas Hepatomegaly New small right renal cyst Diverticulosis without evidence of diverticulitis Small uterine leiomyomas Allergies Allergy/AdvReac Type Severity Reaction Status Date / Time clams Allergy Severe Dyspepsia, Verified 12/25/24 13:10 abdominal pain Home Medications Medication Instructions Recorded Confirmed Type calcium 500 mg (as 1 tab PO BID 04/24/22 12/24/24 History carbonate)-vitamin D3 5 mcg (200 unit) tablet (Calcium 500 + D) multivitamin with minerals 1 tab PO DAILY 04/24/22 12/24/24 History olopatadine 0.1 % eye drops 1 drp OPB DAILY PRN allergies 04/24/22 12/24/24 History vitamin B complex 1 tab PO DAILY 04/24/22 12/24/24 History L.acidop,casei,lactis,rham-B.lact,marcelle 1 cap PO QPM 05/17/23 12/24/24 History 625 mg (10 billion cell) capsule (Advanced Probiotic) methimazole 5 mg tablet 5 mg PO QAM 05/17/23 12/24/24 History latanoprost 0.005 % eye drops 1 drp OPR HS 09/04/23 12/24/24 History escitalopram oxalate 10 mg tablet 10 mg PO HS 09/01/24 12/24/24 History levetiracetam 1,000 mg tablet 1,000 mg PO BID 30 days #60 tabs 09/01/24 12/24/24 Rx pravastatin 20 mg tablet 20 mg PO HS 09/01/24 12/24/24 History aspirin 81 mg tablet,delayed 81 mg PO BID 42 days #0 tabs 11/27/24 12/24/24 Rx release cyclobenzaprine 10 mg tablet 10 mg PO BID PRN muscle spasm #20 11/28/24 12/24/24 Rx tabs acetaminophen 500 mg tablet 1,000 mg PO Q6H PRN Pain 11/29/24 12/24/24 History ferrous sulfate 325 mg (65 mg 325 mg PO BIDM 30 days #60 tabs 12/01/24 12/24/24 Rx iron) tablet,delayed release Patient History Medical History Vasovagal episode Hx Hyperthyroidism Taking Methimazole Tachycardia (09/2024) [facility] ER visit > discussed f/u with PCP + neuro (recent 72 hour heart monitor mentioned) Osteoporosis Anxiety History of TIAs (2021) Possible Follows with [facility] neuro Seizure disorder Most recent seizure 10+ years ago Taking Levetiracetam Follows with [facility] neuro Osteoarthritis Multinodular goiter Arthritis Hiatal hernia Diverticular disease Hx of basal cell carcinoma s/p excision Glaucoma B/L Surgical History History of anesthesia reaction Difficulty waking & low BP requiring additional days stay during left knee surgery 2022 History of total left knee replacement (TKR) (06/28/23) Left TKA (06/28/23): SAB at L3/4 (1 attempt) + regional at [facility] History of tonsillectomy History of tooth extraction Hx of cataract surgery R/L History of colonoscopy Hx laparoscopic cholecystectomy (07/2019) Laparoscopic Cholecystectomy (08/06/19): Grade 1 view, MAC#3, ETT 7.0, atraumatic Hx of basal cell carcinoma excision History of elbow surgery Right x2 (removal of hardware) Family History Daughter Breast cancer Social History Smoking Status: Never smoker Second Hand Exposure: No; Do You Dip or Chew Tobacco: No; Tobacco Cessation Education Requested by Patient: No Hx Alcohol Use: No Hx Substance Use: No Preferred Language: Nepali Communication Ability: Effective Sole Leveler Required: No Beliefs That Will Affect Care: None marital status: Current Living Situation: Alone Current Living Situation Comment: lives at home alone, currently staying with niece (post surgery) current occupational status: retired How many Children do You have: 1 Other Information That Helps Us Care for You: No Feels Safe at Home: Yes Safety Concerns: Feels Safe At This Time Assistive Devices: Walker Review of Systems Review of Systems: All other findings negative except as noted in HPI. Physical Exam Constitutional: WD/WN, vitals as above Respiratory: normal respiratory effort Gastrointestinal (Abdomen): normal bowel sounds, soft, nontender, no hepatosplenomegaly Skin: no rashes, warm and dry Results & Data Vital Signs (Past 12 Hours) Vital Signs Temp Pulse Pulse Resp BP BP Pulse Ox 12/25/24 08:55 98.1 F 96 H 22 123/68 96 12/25/24 07:50 98.1 F 96 H 22 101/60 95 12/25/24 07:16 98.6 F 94 H 20 108/46 L 95 12/25/24 06:47 98 F 94 H 18 106/57 L 96 12/25/24 06:32 98.1 F 91 H 18 102/56 L 95 12/25/24 06:16 98.7 F 94 H 18 111/46 L 94 12/25/24 05:58 98.7 F 96 H 18 108/56 L 95 12/25/24 05:55 98.7 F 93 H 22 108/56 L 95 12/25/24 05:53 92 H 12/25/24 03:14 98.3 F 96 H 16 103/54 L 95 12/25/24 02:24 105 H 94/53 L 12/25/24 01:18 98 F 105 H 16 97/57 L 92 12/25/24 00:20 98.6 F 105 H 18 103/54 L 92 12/24/24 23:20 98.6 F 106 H 16 110/54 L 95 12/24/24 22:50 98.6 F 107 H 18 113/55 L 96 12/24/24 22:35 98.5 F 113 H 18 115/53 L 96 12/24/24 22:16 98.2 F 105 H 18 120/59 L 95 12/24/24 22:16 98.2 F 105 H 18 120/59 L 95 12/24/24 22:10 106 H O2 Del Method 12/25/24 08:55 12/25/24 07:50 12/25/24 07:16 12/25/24 06:47 12/25/24 06:32 12/25/24 06:16 12/25/24 05:58 12/25/24 05:55 12/25/24 05:53 12/25/24 03:14 Room Air 12/25/24 02:24 12/25/24 01:18 12/25/24 00:20 12/24/24 23:20 12/24/24 22:50 12/24/24 22:35 12/24/24 22:16 Room Air 12/24/24 22:16 12/24/24 22:10 Laboratory Results 12/25/24 12/25/24 12/24/24 Range/Units 03:26 02:35 22:26 WBC 9.47 RBC 2.22 L Hgb 7.0 L Hct 21.8 L MCV 98.2 MCH 31.5 MCHC 32.1 RDW Std Deviation 61.0 H RDW Coeff of Bhavesh 17.4 H Plt Count 251 MPV 8.7 L Immature Gran % (Auto) Neut % (Auto) Lymph % (Auto) [place] % (Auto) Eos % (Auto) Baso % (Auto) Neut # (Auto) Lymph # (Auto) [place] # (Auto) Eos # (Auto) Baso # (Auto) Immature Gran # (Auto) Absolute Nucleated RBC Nucleated RBC % (auto) Neutrophils % (Manual) Band Neutrophils % Lymphocytes % (Manual) Prolymphocyte % Reactive Lymphs % (Man) Monocytes % (Manual) Eosinophils % (Manual) Basophils % (Manual) Metamyelocytes % (Man) Myelocytes % (Man) Promyelocytes % (Man) Blast Cells % (Manual) Plasma Cell % (Manual) Other Cells % Nucleated RBC % Neutrophils # (Manual) Band Neutrophils # Total Absolute Neuts Lymphocytes # (Manual) Prolymphocyte # Reactive Lymphs # Total Abs Lymphocytes Monocytes # (Manual) Eosinophils # (Manual) Basophils # (Manual) Metamyelocytes # (Man) Myelocytes # (Manual) Promyelocytes # (Man) Blast Cells # (Man) Plasma Cell # (Manual) Other Cells # Nucleated RBCs # (Man) Hypersegmented Neuts Hyposegmented Neuts Hypogranular Neuts Large Granular Lymphs # Lrg Granular Lymphs Hairy Cells Smudge Cells Toxic Granulation Toxic Vacuolation Dohle Bodies Don Rods Platelet Estimate Hypogranular Platelets Giant Platelets Platelet Satelliting RBC Morphology Polychromasia Hypochromasia Poikilocytosis Basophilic Stippling Anisocytosis Microcytosis Macrocytosis Spherocytes Pappenheimer Bodies Sickle Cells Target Cells Tear Drop Cells Ovalocytes Stomatocytes [place] Bodies Echinocytes Acanthocytes (Spur) Rouleaux RBC Agglutinates Schistocytes Sezary Cell PT (9.0-12.0) Seconds INR (0.9-1.1) APTT (21-31) Seconds PTT Ratio Sodium 141 139 (136-145) mmol/L Potassium 3.7 3.6 (3.5-5.1) mmol/L Chloride 112 H 109 H (98-107) mmol/L Carbon Dioxide 25 24 (21-32) mmol/L Anion Gap 4 6 (3-11) BUN 15 16 (6-23) mg/dl Creatinine 0.55 L 0.48 L (0.6-1.2) mg/dl Est Cr Clr Drug Dosing 80.9 92.7 ml/min eGFR 94.35 97.49 BUN/Creatinine Ratio 27.3 H 33.3 H (10-20) Glucose 97 111 H (70-99(Fasting)) mg/dl Lactate 0.6 (0.4-2.0) mmol/L Calcium 7.9 L 8.4 L (8.6-10.3) mg/dl Magnesium (1.7-2.4) mg/dl Iron 34 L (35-150) mcg/dl TIBC 325 (250-450) mcg/dl Transferrin 232 (200-360) mg/dl Transferrin % Sat 10 L (15-50) % Total Bilirubin (0.2-1.0) mg/dl AST (13-39) U/L ALT (7-52) U/L Alkaline Phosphatase (34-104) U/L Troponin I High Sens (0-14) pg/ml Total Protein (6.0-8.3) gm/dl Albumin (3.4-5.0) gm/dl Globulin (2.5-4.0) gm/dl Albumin/Globulin Ratio (0.9-2) TSH (0.300-4.500) uIu/ml SARS-CoV-2 (PCR) (Negative) Influenza Type A (PCR) (Neg) Influenza Type B (PCR) (Neg) RSV (RT-PCR) (Neg) Blood Parasites ID Blood Type Antibody Screen Crossmatch 12/24/24 12/24/24 12/24/24 Range/Units 19:06 18:40 17:29 WBC 11.15 H RBC 2.13 L Hgb 7.0 L Hct 21.7 L MCV 101.9 H MCH 32.9 MCHC 32.3 RDW Std Deviation 59.7 H RDW Coeff of Bhavesh 16.2 H Plt Count 312 MPV 9.0 L Immature Gran % (Auto) 0.5 Neut % (Auto) 71.7 Lymph % (Auto) 15.6 [place] % (Auto) 10.6 Eos % (Auto) 0.9 Baso % (Auto) 0.7 Neut # (Auto) 7.99 H Lymph # (Auto) 1.74 [place] # (Auto) 1.18 H Eos # (Auto) 0.10 Baso # (Auto) 0.08 Immature Gran # (Auto) 0.06 Absolute Nucleated RBC Nucleated RBC % (auto) Neutrophils % (Manual) Band Neutrophils % Lymphocytes % (Manual) Prolymphocyte % Reactive Lymphs % (Man) Monocytes % (Manual) Eosinophils % (Manual) Basophils % (Manual) Metamyelocytes % (Man) Myelocytes % (Man) Promyelocytes % (Man) Blast Cells % (Manual) Plasma Cell % (Manual) Other Cells % Nucleated RBC % Neutrophils # (Manual) Band Neutrophils # Total Absolute Neuts Lymphocytes # (Manual) Prolymphocyte # Reactive Lymphs # Total Abs Lymphocytes Monocytes # (Manual) Eosinophils # (Manual) Basophils # (Manual) Metamyelocytes # (Man) Myelocytes # (Manual) Promyelocytes # (Man) Blast Cells # (Man) Plasma Cell # (Manual) Other Cells # Nucleated RBCs # (Man) Hypersegmented Neuts Hyposegmented Neuts Hypogranular Neuts Large Granular Lymphs # Lrg Granular Lymphs Hairy Cells Smudge Cells Toxic Granulation Toxic Vacuolation Dohle Bodies Don Rods Platelet Estimate Hypogranular Platelets Giant Platelets Platelet Satelliting RBC Morphology Polychromasia 2+ Hypochromasia Poikilocytosis Basophilic Stippling Anisocytosis Microcytosis Macrocytosis Spherocytes Pappenheimer Bodies Sickle Cells Target Cells Tear Drop Cells Ovalocytes Stomatocytes 1+ [place] Bodies Echinocytes Acanthocytes (Spur) Rouleaux RBC Agglutinates Schistocytes Sezary Cell PT 10.6 (9.0-12.0) Seconds INR 1.0 (0.9-1.1) APTT 21 (21-31) Seconds PTT Ratio 0.8 Sodium (136-145) mmol/L Potassium (3.5-5.1) mmol/L Chloride (98-107) mmol/L Carbon Dioxide (21-32) mmol/L Anion Gap (3-11) BUN (6-23) mg/dl Creatinine (0.6-1.2) mg/dl Est Cr Clr Drug Dosing ml/min eGFR BUN/Creatinine Ratio (10-20) Glucose (70-99(Fasting)) mg/dl Lactate (0.4-2.0) mmol/L Calcium (8.6-10.3) mg/dl Magnesium (1.7-2.4) mg/dl Iron (35-150) mcg/dl TIBC (250-450) mcg/dl Transferrin (200-360) mg/dl Transferrin % Sat (15-50) % Total Bilirubin (0.2-1.0) mg/dl AST (13-39) U/L ALT (7-52) U/L Alkaline Phosphatase (34-104) U/L Troponin I High Sens (0-14) pg/ml Total Protein (6.0-8.3) gm/dl Albumin (3.4-5.0) gm/dl Globulin (2.5-4.0) gm/dl Albumin/Globulin Ratio (0.9-2) TSH (0.300-4.500) uIu/ml SARS-CoV-2 (PCR) NEGATIVE (Negative) Influenza Type A (PCR) Negative (Neg) Influenza Type B (PCR) Negative (Neg) RSV (RT-PCR) Negative (Neg) Blood Parasites ID Blood Type O Positive Antibody Screen NEGATIVE Crossmatch See Detail 12/24/24 Range/Units 16:30 WBC Cancelled RBC Cancelled Hgb Cancelled Hct Cancelled MCV Cancelled MCH Cancelled MCHC Cancelled RDW Std Deviation Cancelled RDW Coeff of Bhavesh Cancelled Plt Count Cancelled MPV Cancelled Immature Gran % (Auto) Cancelled Neut % (Auto) Cancelled Lymph % (Auto) Cancelled [place] % (Auto) Cancelled Eos % (Auto) Cancelled Baso % (Auto) Cancelled Neut # (Auto) Cancelled Lymph # (Auto) Cancelled [place] # (Auto) Cancelled Eos # (Auto) Cancelled Baso # (Auto) Cancelled Immature Gran # (Auto) Cancelled Absolute Nucleated RBC Cancelled Nucleated RBC % (auto) Cancelled Neutrophils % (Manual) Cancelled Band Neutrophils % Cancelled Lymphocytes % (Manual) Cancelled Prolymphocyte % Cancelled Reactive Lymphs % (Man) Cancelled Monocytes % (Manual) Cancelled Eosinophils % (Manual) Cancelled Basophils % (Manual) Cancelled Metamyelocytes % (Man) Cancelled Myelocytes % (Man) Cancelled Promyelocytes % (Man) Cancelled Blast Cells % (Manual) Cancelled Plasma Cell % (Manual) Cancelled Other Cells % Cancelled Nucleated RBC % Cancelled Neutrophils # (Manual) Cancelled Band Neutrophils # Cancelled Total Absolute Neuts Cancelled Lymphocytes # (Manual) Cancelled Prolymphocyte # Cancelled Reactive Lymphs # Cancelled Total Abs Lymphocytes Cancelled Monocytes # (Manual) Cancelled Eosinophils # (Manual) Cancelled Basophils # (Manual) Cancelled Metamyelocytes # (Man) Cancelled Myelocytes # (Manual) Cancelled Promyelocytes # (Man) Cancelled Blast Cells # (Man) Cancelled Plasma Cell # (Manual) Cancelled Other Cells # Cancelled Nucleated RBCs # (Man) Cancelled Hypersegmented Neuts Cancelled Hyposegmented Neuts Cancelled Hypogranular Neuts Cancelled Large Granular Lymphs Cancelled # Lrg Granular Lymphs Cancelled Hairy Cells Cancelled Smudge Cells Cancelled Toxic Granulation Cancelled Toxic Vacuolation Cancelled Dohle Bodies Cancelled Don Rods Cancelled Platelet Estimate Cancelled Hypogranular Platelets Cancelled Giant Platelets Cancelled Platelet Satelliting Cancelled RBC Morphology Cancelled Polychromasia Cancelled Hypochromasia Cancelled Poikilocytosis Cancelled Basophilic Stippling Cancelled Anisocytosis Cancelled Microcytosis Cancelled Macrocytosis Cancelled Spherocytes Cancelled Pappenheimer Bodies Cancelled Sickle Cells Cancelled Target Cells Cancelled Tear Drop Cells Cancelled Ovalocytes Cancelled Stomatocytes Cancelled [place] Bodies Cancelled Echinocytes Cancelled Acanthocytes (Spur) Cancelled Rouleaux Cancelled RBC Agglutinates Cancelled Schistocytes Cancelled Sezary Cell Cancelled PT (9.0-12.0) Seconds INR (0.9-1.1) APTT (21-31) Seconds PTT Ratio Sodium 140 (136-145) mmol/L Potassium 3.9 (3.5-5.1) mmol/L Chloride 107 (98-107) mmol/L Carbon Dioxide 26 (21-32) mmol/L Anion Gap 7 (3-11) BUN 22 (6-23) mg/dl Creatinine 0.52 L (0.6-1.2) mg/dl Est Cr Clr Drug Dosing 88.3 ml/min eGFR 95.63 BUN/Creatinine Ratio 42.3 H (10-20) Glucose 112 H (70-99(Fasting)) mg/dl Lactate (0.4-2.0) mmol/L Calcium 8.5 L (8.6-10.3) mg/dl Magnesium 2.0 (1.7-2.4) mg/dl Iron (35-150) mcg/dl TIBC (250-450) mcg/dl Transferrin (200-360) mg/dl Transferrin % Sat (15-50) % Total Bilirubin 0.4 (0.2-1.0) mg/dl AST 14 (13-39) U/L ALT 12 (7-52) U/L Alkaline Phosphatase 67 (34-104) U/L Troponin I High Sens 5.4 (0-14) pg/ml Total Protein 5.7 L (6.0-8.3) gm/dl Albumin 3.6 (3.4-5.0) gm/dl Globulin 2.1 L (2.5-4.0) gm/dl Albumin/Globulin Ratio 1.7 (0.9-2) TSH 1.808 (0.300-4.500) uIu/ml SARS-CoV-2 (PCR) (Negative) Influenza Type A (PCR) (Neg) Influenza Type B (PCR) (Neg) RSV (RT-PCR) (Neg) Blood Parasites ID Cancelled Blood Type Antibody Screen Crossmatch PG Care Time/CCT Total # of Minutes Spent Total Time Spent with Patient: Total time spent is greater than 50% in coordination of care (as documented) at patient's floor/unit and/or counseling patient: Coding Level of Care Code 95976 INT INP/OBS CARE 2/55MIN Diagnoses Symptomatic anemia D64.9
--- OUTSIDE RECORDS SUMMARY | 2024-12-25 11:48 | External Medical Summary | Summary of Care ---
Author Name Unknown Organization [facility] Address [address] [place] [address] Phone [phone] Care Team Providers Care Dust Collector Name Role Phone Elvia Rodriguez MD Primary Care Provider + Reason for Visit * Reason Onset Date Comments Worsening Of Symptoms 12/21/2024 Encounter Details Date Type Department Care Team (Late st Contact Info) Description 12/21/2024 Telephone Care Coordination and Integration [address] [place] [address] Cheikh Beyer RN [address], [place] [id number] Worsening Of Symptoms Allergies Active Allergy Reactions Criticality Noted Date Comments Bee Venom Edema Other 02/18/2017 "itching, red, swelling, but only at the place where I got stung" Clam Shell Diarrhea 04/24/2022 Pollen 08/14/2022 Unsure exactly what, but has some sort of seasonal allergy documented as of this encounter (statuses as of 12/23/2024) Medications Multiple Vitamins-Minera ls (MULTIVITAMIN WOMEN 50+) [...] mouth 2 times a day. 30 Cap 10/30/19 19 Active Ascorbic Acid (VITAMIN C) 100 MG Tablet Take 1 Tablet by mouth in the morning. Active zoster vac recomb adjuvanted (SHINGRIX) 50 MCG/0.5ML injectionIndica tions:Need for vaccination for zoster Inject 0.5 mL into a large muscle now and repeat dose in 60 to 180 days 1 Each 1 06/16/20 20 Active Aspirin 81 MG Oral Tablet Chewable Take 1 Tablet by mouth in the morning. Active Latanoprost 0.005 % Ophthalmic Emulsion Instill 1 Drop into the right eye at bedtime. 09/04/20 23 Active Triamcinolone Acetonide 0.1 % External Lotion (Aristocort)Ind ications:Psoria sis apply topically to affected areas on scalp daily. after 2 weeks use several times a week as needed 60 mL 12/03/19 24 Active methIMAzole 5 MG Oral Tablet (Tapazole)Indic ations:History of TIA (transient ischemic attack) Take 1 Tablet by mouth in the morning. In the morning.. 90 Tablet 06/16/20 24 Active Pravastatin Sodium 20 MG Oral Tablet (Pravachol) Take 1 Tablet by mouth every evening. 1 daily 30 Tablet 5 08/11/20 24 Active levETIRAcetam 1000 MG Oral Tablet (Keppra) Take 1 Tablet by mouth in the morning and 1 Tablet before bedtime. Active Cyclobenzaprine HCl 10 MG Oral Tablet (Flexeril) Take 1 Tablet by mouth in the morning and 1 Tablet before bedtime. Active Acetaminophen 500 MG Oral Capsule Take 2 Capsules by mouth every 6 hours as needed for Pain, Moderate or Pain, Mild. Active Olopatadine HCl 0.1 % Ophthalmic Solution (Pataday) Instill 1 Drop into both eyes 2 times a day as needed for Itching. Active Ferrous Sulfate 325 (65 Fe) MG Oral Tablet Delayed Release Take 1 Tablet by mouth in the morning and 1 Tablet in the evening. Active Phospha 250 Neutral 155-852-130 MG Oral Tablet Take 1 Tablet by mouth in the morning and 1 Tablet at noon and 1 Tablet in the evening and 1 Tablet before bedtime. Active Docusate Sodium 100 MG Oral Capsule (Colace) Take by mouth 2 times a day as needed for Constipation. 12/07/19 25 Active Escitalopram Oxalate 20 MG Oral Tablet (Lexapro)Indica tions:Major depressive disorder, single episode, moderate (HCC) Take 1 Tablet by mouth in the morning. 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 Never true 12/03/19 25 Within the past 12 months, t he food you bought just didn't last and you didn't have money to get more. Never true 12/03/2024 Childcare Answer Date Recorded Do you feel overwhelmed with taking care of a child, family member or friend? No 12/03/2024 Does your family need help f inding childcare? (Household - for ages 0-17 years) Not on file 12/03/2024 Clothing Answer Date Recorded Have you been unable to get clothing when it was really needed? No 12/03/2024 Is your family able to get c lothes or diapers when needed? (Household - for ages 0-17 years) Not on file 12/03/2024 Personal Safety Answer Date Recorded Do you feel unsafe or have concerns for your saf ety? No 12/03/2024 Do you have concerns for you r family's safety? (Household - for ages 0-17 years) Not on file 12/03/2024 Utilities Answer Date Recorded Do you have trouble paying y our heating, water, or electric bill? No 12/03/2024 Is your family able to pay t he heat, water, or electric bill? (Household - for ages 0-17 years) Not on file 12/03/2024 Does your family have access to good internet? (Household - for ages 0-17 years) Not on file 12/03/2024 Employment Status Answer Date Recorded Are you unemployed or without regular income? No 12/03/2024 Does the household have a re gular source of income? (Household - for ages 0-17 years) Not on file 12/03/2024 Social Connections Answer Date Recorded How often do you feel lonely or isolated from th ose around you? Rarely 12/03/2024 Financial Resource Strain Answer Date R ecorded Do you have any trouble payi ng for your medications, or do you think you might in the future? Yes 12/03/2024 Does your family have troubl e paying for medicine? (Household - for ages 0-17 years) Not on file 12/03/2024 Transportation Needs Answer Date Record ed Do you have trouble getting a ride to medical visits or work? (Adult - for ages 18 years and over) Not on file 12/03/2024 Does your family have a hard time getting a ride to doctors visits? (Household - for ages 0-17 years) Not on file 12/03/2024 Has lack of transportation k ept you from medical appointments, meetings, work, or from getting things needed for daily living? Check all that apply. No 12/03/2024 Do you (or your family) have trouble finding or paying for a ride (transportation)? (Household - for ages 0-17 years) Not on file 12/03/2024 Housing Stability Answer Date Recorded Do you currently live in a s helter or have no steady place to sleep at night? No 12/03/2024 Do you think you are at risk of becoming homeless? (Adult - for ages 18 years and over) Not on file 12/03/2024 Does your family worry about paying for your home or becoming homeless? (Household - for ages 0-17 years) Not on file 0 12/03/2024 Are you homeless or worried that you might be in the future? No 12/03/2024 Are you (or your family) cristy eless or worried that you might be in the future? (Household - for ages 0-17 years) Not on file 02 / Food Insecurity Answer Date Recorded Within the past 12 months, y ou worried that your food would run out before you got the money to buy more. Never true 12/03/19 25 Within the past 12 months, t he food you bought just didn't last and you didn't have money to get more. Never true 12/03/2024 Do you need food for this week? Yes 12/03/2024 Comments No Sex and Gender Information Value [...] encounter Miscellaneous Notes * Telephone Encounter - Cheikh Beyer RN - 12/23/2024 8:52 AM EST Cm left a voicemail for Malinda to let her know a new script was sent to her pharmacy. * Telephone Encounter - Elvia Rodriguez MD - 12/22/2024 11:06 AM EST Noted. Script for Lexapro 20 mg to take orally once a day sent to the pharmacy. Please notify the patient and daughter Angeles. * Telephone Encounter - Meliza Garcia LPN - 12/21/2024 2:43 PM EST I called and spoke with daughter Angeles, she reports the patient is currently taking lexapro 10 mg daily, they are requesting to increase to 20 mg daily. Angeles reports the patient's anxiety is no worse than normal. Patient is just not progressing with healing like she would like. * Telephone Encounter - Elvia Rodriguez MD - 12/21/2024 2:31 PM EST As per our chart she has been taking Lexapro 10 mg orally once a day. Please confirm the dosage. Ifshserene is already taking Lexapro 20 mg once a day then we have to add another medication like low doseof Wellbutrin if she has no history of seizure disorder. Also check if she has any anxiety symptoms or not. Thanks * Telephone Encounter - Cheikh Beyer RN - 12/21/2024 12:16 PM EST Patient is experiencing increased feelings of depression, her appetite is decreased, she is not doing things she enjoys- reading and knitting. These are increased since her R TKA on 11/27. She is asking if she can increase the lexapro she is taking to 20g daily? Please advise, thank you documented in this encounter Plan of Treatment Upcoming Encounters Date Type Department Care Team (Late st Contact Info) Description 01/28/2025 3:30 PM EDT Imaging Radiology [facility] [address] [place] [phone] 02/09/2025 2:20 PM EDT Office Visit General Internal Medicine [facility] [address] [facility] [place] [address] Elvia Rodriguez MD [address] [facility] [place] [address] 04/06/2025 3:00 PM EDT Imaging Radiology [facility] [address] [place] [phone] 07/21/2025 3:40 PM EDT Office Visit Rheumatology [facility] [address] [place] [phone] Lopez Loyola MD [facility] [place] [address] Scheduled Procedures Name Priority Associated Diagnoses Date/Ti [...] 1997 (Patient Declined After Education) Depression Monitoring 12/03/2025 12/03/2024, 024 DTap/Tdap Vaccines (2 - Td or Tdap) 07/01/2029 07/01/2019 Colonoscopy Discontinued 12/07/2011 Colorectal Cancer Screening Discontinued Pneumococcal Vaccine: 50+ Years Completed 06/16/2020, 06/11/2019 Influenza Vaccine (FLU shot) Completed 07/28/2024, 07/27/2023, 08/14/2022, Additional history exists VITAMIN D LEVEL ONCE IN A LIFETIME-USE SMARTSET# [id number] Completed 07/28/2024, 05/21/2019 Cologuard Discontinued Fecal Occult Blood Test Discontinued HPV (Gardasil) Vaccine Aged Out No lo nger eligible based on patient's age to complete this topic Hepatitis B Vaccine Aged Out No longe r eligible based on patient's age to complete this topic MENINGOCOCCAL (MENACTRA/MENVEO) Aged Out No longer eligible based on patient's age to complete this topic Meningitis B Vaccine (Bexsero/Trumemba) Aged Out No longer eligible based on patient's age to complete this topic Sigmoidoscopy Discontinued documented as of this encounter Medical Devices Implanted Type Area Cesspool Cleaner Device Identifier Shelf Expiration Date Model / Serial / Lot Iol Implanted:Qty: 1 on 06/30/2020 by Shaheen De Souza MD at OR [facility] Left: Eye 12/18/2024 [id number] / [id number] / Lens Intraoc 18.0 - [id number] - [id number] Implanted:Qty: 1 on 07/14/2020 by Shaheen De Souza MD at OR [facility] Right: Eye [employer] 02/17/2025 [id number] / [id number] / documented as of this encounter Visit Diagnoses Diagnosis Major depressive disorder, single episode, moderate (HCC)- Primary Major depressive disorder, single episode, moderate documented in this encounter Advance Directives * [...] the patient have Health Care Power of Dispatch Officer? Yes, in chart and reviewed as current [...] Health Care Power of Attor lesly? No Healthcare Agents on File Name Relationship Healthcare Agent Relationship Communication Angeles Florinda Adult Child Health Mathematics Department Chair resentative (appointed verbally by patient or by statute hierarchy) Care Teams Dust Collector Relationship Specialty Start Date End Date Elvia Rodriguez MD [address] [place] [address] PCP - General Internal Medicine 06/11/19 documented as of this encounter
[2024-12-25 12:23] LABS: Hematocrit (blood only) 26.7 % (37.0-47.0); Hemoglobin 8.7 g/dl (12.0-16.0)
[2024-12-25] MEDS: SODIUM CHLORIDE 0.9% 500 ML IV SCH (13:19)
--- NOTE | 2024-12-25 13:23 | Anesthesiology Consultation ---
Date of Service December 25, 2024 Assessment & Plan Chart Review Chart Review: Acceptable Risk for Surgery Consults Requested none History Surgery Operation Date: 12/25/24 17:35 Proposed Procedures p Esophagogastroduodenoscopy Dr. Georgia Ho MD Height/Weight Height: 5 ft 3 in Weight: 71.305 kg Allergies Allergy/AdvReac Type Severity Reaction Status Date / Time clams Allergy Severe Dyspepsia, Verified 12/25/24 13:10 abdominal pain Medications Home Medications Medication Instructions Recorded Confirmed Last Taken calcium 500 mg (as 1 tab PO BID 04/24/22 12/24/24 12/23/24 20:00 carbonate)-vitamin D3 5 mcg (200 unit) tablet (Calcium 500 + D) multivitamin with minerals 1 tab PO DAILY 04/24/22 12/24/24 12/24/24 13:00 olopatadine 0.1 % eye drops 1 drp OPB DAILY PRN allergies 04/24/22 12/24/24 12/23/24 20:00 vitamin B complex 1 tab PO DAILY 04/24/22 12/24/24 12/24/24 07:00 L.acidop,casei,lactis,rham-B.lact,marcelle 1 cap PO QPM 05/17/23 12/24/24 12/24/24 12:00 625 mg (10 billion cell) capsule (Advanced Probiotic) methimazole 5 mg tablet 5 mg PO QAM 05/17/23 12/24/24 12/24/24 07:00 latanoprost 0.005 % eye drops 1 drp OPR HS 09/04/23 12/24/24 12/23/24 20:00 escitalopram oxalate 10 mg tablet 10 mg PO HS 09/01/24 12/24/24 12/23/24 20:00 levetiracetam 1,000 mg tablet 1,000 mg PO BID 30 days #60 tabs 09/01/24 12/24/24 12/24/24 07:00 pravastatin 20 mg tablet 20 mg PO HS 09/01/24 12/24/24 12/23/24 20:00 aspirin 81 mg tablet,delayed 81 mg PO BID 42 days #0 tabs 11/27/24 12/24/24 12/24/24 07:00 release cyclobenzaprine 10 mg tablet 10 mg PO BID PRN muscle spasm #20 02/08/25 03/06/25 03/05/25 20:00 tabs acetaminophen 500 mg tablet 1,000 mg PO Q6H PRN Pain 11/29/24 12/24/24 12/24/24 15:00 ferrous sulfate 325 mg (65 mg 325 mg PO BIDM 30 days #60 tabs 12/01/24 12/24/24 12/24/24 07:00 iron) tablet,delayed release Active Medications Generic Name Dose Route Start Last Admin Trade Name Zeny PRN Reason Stop Dose Admin Acetaminophen 1,000 mg 12/24/24 22:03 12/25/24 08:09 Acetaminophen 500 Mg Tab PO 01/23/25 22:02 1,000 mg Q6H PRN Administration Pain Calcium/Vitamin D 1 tab 12/24/24 22:03 12/25/24 08:03 Calcium 600mg + Vit D 400 Iu Tab PO 01/23/25 22:02 1 tab BID JUAN FRANCISCO Administration Escitalopram Oxalate 10 mg 12/24/24 22:03 12/24/24 22:35 Escitalopram Oxalate 10 Mg Tab PO 01/23/25 22:02 10 mg HS JUAN FRANCISCO Administration Pantoprazole Sodium 40 mg/ 100 mls @ 20 mls/hr 12/24/24 19:00 12/25/24 10:38 Dextrose IV 01/23/25 18:59 8 mg/hr Q5H JUAN FRANCISCO 20 mls/hr Administration 8 MG/HR Sodium Chloride 500 mls @ 15 mls/hr 12/25/24 07:30 12/25/24 13:19 Nss IV 12/26/24 07:29 15 mls/hr .Q24H JUAN FRANCISCO Administration Lactobacillus Acidophilus 1,250 mg 12/24/24 22:03 12/24/24 22:34 Advanced Probiotic 625 Mg Capsule PO 01/23/25 22:02 Not Given QPM JUAN FRANCISCO Latanoprost 1 drops 12/24/24 22:03 12/24/24 22:33 Latanoprost 0.005% Op Soln 2.5 Ml Btl OPR 01/23/25 22:02 1 drops HS JUAN FRANCISCO Administration Levetiracetam 1,000 mg 12/24/24 22:03 12/25/24 08:03 Levetiracetam 500 Mg Tab PO 01/23/25 22:02 1,000 mg BID JUAN FRANCISCO Administration Methimazole 5 mg 12/25/24 09:00 12/25/24 08:02 Methimazole 5 Mg Tablet PO 01/24/25 08:59 5 mg QAM JUAN FRANCISCO Administration Multivitamins/Minerals 1 tab 12/25/24 09:00 12/25/24 08:03 Cerovite Adv Formula Tab PO 01/24/25 08:59 1 tab DAILY JUAN FRANCISCO Administration Pravastatin Sodium 20 mg 12/24/24 22:03 12/24/24 22:34 Pravastatin Sod 20 Mg Tab PO 01/23/25 22:02 20 mg HS JUAN FRANCISCO Administration Vitamin B Complex 1 tab 12/25/24 09:00 12/25/24 08:03 Vitamin B Complex Tab PO 01/24/25 08:59 1 tab DAILY JUAN FRANCISCO Administration NPO Date Last Intake of Fluids: 12/25/24 Time Last Intake of Fluids: 00:00 Date Last Intake of Solids: 12/24/24 Time Last Intake of Solids: 12:00 Past Medical History Medical History Vasovagal episode Hx Hyperthyroidism Taking Methimazole Tachycardia (09/2024) [facility] [place] ER visit > discussed f/u with PCP + neuro (recent 72 hour heart monitor mentioned) Osteoporosis Anxiety History of TIAs (2021) Possible Follows with [facility] neuro Seizure disorder Most recent seizure 10+ years ago Taking Levetiracetam Follows with [facility] neuro Osteoarthritis Multinodular goiter Arthritis Hiatal hernia Diverticular disease Hx of basal cell carcinoma s/p excision Glaucoma B/L Past Family History Family History Daughter Breast cancer Past Surgical History Surgical History History of anesthesia reaction Difficulty waking & low BP requiring additional days stay during left knee surgery 2022 History of total left knee replacement (TKR) (06/28/23) Left TKA (06/28/23): SAB at L3/4 (1 attempt) + regional at [facility] [place] History of tonsillectomy History of tooth extraction Hx of cataract surgery R/L History of colonoscopy Hx laparoscopic cholecystectomy (07/2019) Laparoscopic Cholecystectomy (08/06/19): Grade 1 view, MAC#3, ETT 7.0, atraumatic Hx of basal cell carcinoma excision History of elbow surgery Right x2 (removal of hardware) Social History Smoking Status: Never smoker Do You Dip or Chew Tobacco: No Hx Alcohol Use: No Alcohol type: wine alcohol intake frequency: holidays/special occasions only Hx Substance Use: No substance use type: does not use Physical Exam Vital Signs Last Vital Signs Temp 36.8 C 12/25/24 11:12 Pulse 100 H 12/25/24 13:11 Resp 16 12/25/24 13:11 BP 120/52 L 12/25/24 13:11 Pulse Ox 97 12/25/24 13:11 O2 Del Method Room Air 12/25/24 13:11 Testing Laboratory Results 12/25/24 11:56 12/25/24 02:35 PT 10.6 Seconds (9.0-12.0) 12/24/24 17:29 INR 1.0 (0.9-1.1) 12/24/24 17:29 APTT 21 Seconds (21-31) 12/24/24 17:29 Blood Type O Positive 12/24/24 19:06 Antibody Screen NEGATIVE 12/24/24 19:06
--- NOTE | 2024-12-25 14:18 | GI REPORT ---
[facility] Patient: RICKY ANDREA : 1945 Sex at : Female Age: 79 Years Procedure: Upper GI endoscopy Date: 12/25/2024 Attending Physician: Arturo Ho MD Referring MD: Elvia Rodriguez Indications: - GI bleeding Medications: - Monitored Anesthesia Care - Propofol per Anesthesia - See the Anesthesia note for documentation of the administered medications Complications: - No immediate complications. Estimated Blood Loss: - Estimated blood loss: None. Procedure: - The egd scope was introduced through the mouth and advanced to the second part of the duodenum. - The upper GI endoscopy was accomplished without difficulty. - The patient tolerated the procedure well. Findings: - The examined esophagus was normal. - A large hiatal hernia was present. - The examined duodenum was normal. Impression: - Normal esophagus. - Large hiatal hernia. - Normal examined duodenum. - No specimens collected. Recommendation: - Perform a colonoscopy at appointment to be scheduled. Procedure Code(s): - 40318, Esophagogastroduodenoscopy, flexible, transoral; diagnostic, including collection of specimen(s) by brushing or washing, when performed (separate procedure) Diagnosis Code(s): - K44.9, Diaphragmatic hernia without obstruction or gangrene CPT(R) - 2022 copyright [employer]. All Rights Reserved. The CPT codes, CCI edits and ICD codes generated are intended as suggestions and were generated based on input data. These codes are preliminary and upon pre coder review may be revised to meet current compliance and payer requirements. The provider is responsible for the final determination of appropriate codes, and modifiers. Arturo Ho MD This document has been electronically signed. Note Initiated:12/25/2024 Note Completed:12/25/2024 2:17 PM [email or web address]\[id number]
--- NOTE | 2024-12-25 15:22 | Anesthesiology Progress Note ---
Date of Service December 25, 2024 Anesthesia Post Procedure Vital Signs Vital Signs: Temp Pulse Pulse Pulse Resp BP BP 12/25/24 14:41 89 16 131/76 12/25/24 14:26 94 H 16 130/75 12/25/24 14:11 88 14 106/66 12/25/24 13:11 100 H 16 120/52 L 12/25/24 11:12 36.8 C 96 H 19 103/63 12/25/24 10:11 12/25/24 08:55 36.7 C 96 H 22 123/68 12/25/24 07:50 36.7 C 96 H 22 101/60 12/25/24 07:16 37.0 C 94 H 20 108/46 L 12/25/24 06:47 36.6 C 94 H 18 106/57 L 12/25/24 06:32 36.7 C 91 H 18 102/56 L 12/25/24 06:16 37.1 C 94 H 18 111/46 L 12/25/24 05:58 37.1 C 96 H 18 108/56 L 12/25/24 05:55 37.1 C 93 H 22 108/56 L 12/25/24 05:53 92 H 12/25/24 03:14 36.8 C 96 H 16 103/54 L 12/25/24 02:24 105 H 94/53 L 12/25/24 01:18 36.6 C 105 H 16 97/57 L 12/25/24 00:20 37.0 C 105 H 18 103/54 L 12/24/24 23:20 37.0 C 106 H 16 110/54 L 12/24/24 22:50 37.0 C 107 H 18 113/55 L 12/24/24 22:35 36.9 C 113 H 18 115/53 L 12/24/24 22:16 36.8 C 105 H 18 120/59 L 12/24/24 22:16 36.8 C 105 H 18 120/59 L 12/24/24 22:10 106 H 12/24/24 21:41 110 H 12/24/24 21:16 36.8 C 12/24/24 21:00 108 H 22 125/56 L 12/24/24 20:34 109 H 12/24/24 20:00 112 H 17 109/64 12/24/24 19:30 109 H 24 128/58 L 12/24/24 19:00 110 H 22 124/68 12/24/24 18:31 109 H 22 141/74 H 12/24/24 17:30 102 H 22 132/67 12/24/24 17:00 103 H 20 161/91 H 12/24/24 16:36 107 H 12/24/24 16:18 36.5 C 107 H 20 139/73 12/24/24 16:18 12/24/24 16:18 36.5 C 107 H 20 139/73 Pulse Ox O2 Del Method 12/25/24 14:41 97 Room Air 12/25/24 14:26 98 Room Air 12/25/24 14:11 96 Room Air 12/25/24 13:11 97 Room Air 12/25/24 11:12 94 Room Air 12/25/24 10:11 97 12/25/24 08:55 96 12/25/24 07:50 95 12/25/24 07:16 95 12/25/24 06:47 96 12/25/24 06:32 95 12/25/24 06:16 94 12/25/24 05:58 95 12/25/24 05:55 95 12/25/24 05:53 12/25/24 03:14 95 Room Air 12/25/24 02:24 12/25/24 01:18 92 12/25/24 00:20 92 12/24/24 23:20 95 12/24/24 22:50 96 12/24/24 22:35 96 12/24/24 22:16 95 Room Air 12/24/24 22:16 95 12/24/24 22:10 12/24/24 21:41 12/24/24 21:16 12/24/24 21:00 94 Room Air 12/24/24 20:34 12/24/24 20:00 97 12/24/24 19:30 97 Room Air 12/24/24 19:00 98 Room Air 12/24/24 18:31 98 Room Air 12/24/24 17:30 99 Room Air 12/24/24 17:00 98 Room Air 12/24/24 16:36 12/24/24 16:18 100 Room Air 12/24/24 16:18 100 Room Air 12/24/24 16:18 100 Room Air Transfer of Care Handoff Completed per policy Notes Mental Status: alert / awake / arousable and participated in evaluation Patient Amnestic to Procedure: Yes Nausea / Vomiting: adequately controlled Pain: adequately controlled Airway Patency, RR, SpO2: stable & adequate BP & HR: stable & adequate Hydration State: stable & adequate Anesthetic Complications: no major complications apparent
[2024-12-25] MEDS: LIDOCAINE 2% 2 ML VIAL/AMP(20MG/ML) INFIL ONE (17:03)
[2024-12-25] MEDS: PROPOFOL IV EMULSION 10 MG/ML 20 ML VIAL IV ONE (17:03)
--- NOTE | 2024-12-25 18:06 | Hospitalist Progress Note ---
Date of Service December 25, 2024 Assessment & Plan (1) GI bleed: Plan (1) Symptomatic anemia: 2 unit of packed RBCs has been transfused, Hb 8.7 Trend H&H Possible GI bleed GI evaled, s/p EGD 12/25 - nl exam, rec is colon scope on Saturday. Continue IV PPI (2) Status post right knee replacement: PT and OT consult (3) Seizure disorder: Continue Keppra (4) Multinodular goiter: Continue methimazole Prior attending reviewed the CT findings with her daughter. Appears as though there may be some enlargement with some encroachment upon the trachea Will need follow-up with ENT and endocrinology (5) Diverticular disease: Patient just finished a course of Augmentin The left lower quadrant discomfort has resolved Admission and Anticipated Discharge Date Admission Date: December 24, 2024 Subjective Patient was seen and examined at bedside. Patient was sitting up in chair, on room air, NAD, resting comfortably. Patient reports black bowel movement yesterday, denies any nausea or abdominal pain today. Patient denies any fever/cough/chest pain. Patient was n.p.o. for possible scope later in the day. Physical Exam Physical Exam: General- adult elderly female seen at bedside. Her RN daughter is present and supplements the history, chronic ill appearance, pale Head- atraumatic Eyes- PERRL, EOMI, anicteric ENT- oropharynx clear Neck- supple, no JVD, no adenopathy, pos thyromegaly; carotids +2/2, no bruits appreciated Lungs- clear to auscultation and percussion Heart- regular rhythm; no murmur, no gallop, no rub appreciated Abdomen- normal bowel sounds, soft, mildly tender in the epigastrium, no sander ound, no masses or hepatosplenomegaly Extremities-2+ edema on the right, 1+ edema on the left. She said she normally has edema but it is a little worse on the right side since the total knee replacement., no calf tenderness; peripheral pulses intact Neuro- alert, oriented x 3; PERRL, EOMI; no facial palsy; no dysarthria; motor 5/5 bilaterally; Skin- warm & dry Results & Data Results & Data Vital Signs (Past 12 Hours) Vital Signs Temp Pulse Pulse Pulse Resp BP BP 12/25/24 14:41 89 16 131/76 03/07/25 14:26 94 H 16 130/75 12/25/24 14:11 88 14 106/66 12/25/24 13:11 100 H 16 120/52 L 12/25/24 11:12 36.8 C 96 H 19 103/63 12/25/24 10:11 12/25/24 08:55 36.7 C 96 H 22 123/68 12/25/24 07:50 36.7 C 96 H 22 101/60 12/25/24 07:16 37.0 C 94 H 20 108/46 L 12/25/24 06:47 36.6 C 94 H 18 106/57 L 12/25/24 06:32 36.7 C 91 H 18 102/56 L 12/25/24 06:16 37.1 C 94 H 18 111/46 L Pulse Ox O2 Del Method 12/25/24 14:41 97 Room Air 12/25/24 14:26 98 Room Air 12/25/24 14:11 96 Room Air 12/25/24 13:11 97 Room Air 12/25/24 11:12 94 Room Air 12/25/24 10:11 97 12/25/24 08:55 96 12/25/24 07:50 95 12/25/24 07:16 95 12/25/24 06:47 96 12/25/24 06:32 95 12/25/24 06:16 94
[2024-12-26 07:35] LABS: Hematocrit (blood only) 27.1 % (37.0-47.0); Hemoglobin 8.8 g/dl (12.0-16.0); Mean Corpuscular Hemoglobin 31.2 pg (25.0-34.0); Mean Corpuscular Hgb Conc 32.5 g/dL (32.0-36.0); Mean Corpuscular Volume 96.1 fL (80.0-100.0); Mean Platelet Volume 8.9 fL (9.4-12.4); Platelet Count 249 K/uL (130-400); RDW Coefficient of Variation 18.7 % (11.5-14.5); RDW Standard Deviation 65.2 fL (36.4-46.3); Red Blood Count 2.82 M/uL (4.20-5.40); White Blood Count 6.99 K/ul (4.8-10.8)
--- NOTE | 2024-12-26 07:52 | Gastroenterology Progress Note ---
Date of Service December 26, 2024 Assessment & Plan (1) GI bleed: Plan: Hemoglobin stable no overt bleeding. Endoscopy did not show a cause for her GI blood loss. Plan to proceed with colonoscopy on December 28. Continue clear liquid diet will begin bowel prep tomorrow. Admission and Anticipated Discharge Date Admission Date: December 24, 2024 Subjective No significant complaints this morning. Denies shortness of breath chest pain or abdominal pain. No melena or hematochezia. Physical Exam Physical Exam: No acute distress Respiratory rate regular Cardiac rhythm regular Abdomen soft nontender Results & Data Results & Data Vital Signs (Past 12 Hours) Vital Signs Temp Pulse Pulse Resp BP Pulse Ox O2 Del Method 12/26/24 03:43 36.6 C 90 20 127/72 94 Room Air 12/25/24 23:52 36.6 C 93 H 18 114/66 92 Room Air 12/25/24 23:00 93 H PG Care Time/CCT Total # of Minutes Spent Total Time Spent with Patient: Total time spent is greater than 50% in coordination of care (as documented) at patient's floor/unit and/or counseling patient: Coding Level of Care Code 90351 SUB INP/OBS CARE 2/35MIN Diagnoses GI bleed K92.2
[2024-12-26 08:06] LABS: BUN Creatinine Ratio 17.2 (10-20); Calcium 7.9 mg/dl (8.6-10.3); Creatinine Clr Calc Pharmacy 78.7 ml/min; Magnesium 2.1 mg/dl (1.7-2.4); Phosphorus 3.5 mg/dl (2.5-4.9); Potassium 3.6 mmol/L (3.5-5.1)
--- NOTE | 2024-12-26 12:32 | Hospitalist Progress Note ---
Date of Service December 26, 2024 Assessment & Plan (1) GI bleed: Plan (1) Symptomatic anemia: 2 unit of packed RBCs has been transfused, Hb 8.7 Trend H&H Possible GI bleed GI evaled, s/p EGD 12/25 - nl exam, rec is colon scope on Saturday. Continue IV PPI (2) Status post right knee replacement: PT and OT consult (3) Seizure disorder: Continue Keppra (4) Multinodular goiter: Continue methimazole Prior attending reviewed the CT findings with her daughter. Appears as though there may be some enlargement with some encroachment upon the trachea Will need follow-up with ENT and endocrinology on dc. (5) Diverticular disease: Patient just finished a course of Augmentin The left lower quadrant discomfort has resolved Admission and Anticipated Discharge Date Admission Date: December 24, 2024 Subjective Patient was seen and examined at bedside. Patient was sitting up in chair, on room air, NAD, resting comfortably. Patient reports black bowel movement day before yesterday, denies any nausea or abdominal pain today. Patient denies any fever/cough/chest pain. Physical Exam Physical Exam: General- adult elderly female, appears weak, chronically ill. Head- atraumatic Eyes- PERRL, EOMI, anicteric ENT- oropharynx clear Neck- supple, no JVD, no adenopathy, pos thyromegaly; carotids +2/2, no bruits appreciated Lungs- clear to auscultation and percussion Heart- regular rhythm; no murmur, no gallop, no rub appreciated Abdomen- normal bowel sounds, soft, non tender, no rebound, no masses or hepatosplenomegaly Extremities-2+ edema on the right, 1+ edema on the left. She said she normally has edema but it is a little worse on the right side since the total knee replacement., no calf tenderness; peripheral pulses intact Neuro- alert, oriented x 3; PERRL, EOMI; no facial palsy; no dysarthria; motor 5/5 bilaterally; Skin- warm & dry Results & Data Results & Data Vital Signs (Past 12 Hours) Vital Signs Temp Pulse Pulse Resp BP Pulse Ox O2 Del Method 12/26/24 11:03 36.6 C 92 H 16 129/75 96 Room Air 12/26/24 10:33 88 12/26/24 08:21 36.6 C 91 H 18 121/73 96 Room Air 12/26/24 03:43 36.6 C 90 20 127/72 94 Room Air
[2024-12-27 07:48] LABS: Calcium 7.8 mg/dl (8.6-10.3); Creatinine Clr Calc Pharmacy 83.5 ml/min; Potassium 3.5 mmol/L (3.5-5.1)
[2024-12-27 08:03] LABS: Hemoglobin 9.1 g/dl (12.0-16.0); Mean Corpuscular Hemoglobin 30.1 pg (25.0-34.0); Mean Corpuscular Hgb Conc 31.4 g/dL (32.0-36.0); Mean Platelet Volume 8.7 fL (9.4-12.4); Platelet Count 269 K/uL (130-400); RDW Coefficient of Variation 17.7 % (11.5-14.5); RDW Standard Deviation 61.3 fL (36.4-46.3); Red Blood Count 3.02 M/uL (4.20-5.40)
--- NOTE | 2024-12-27 08:33 | Gastroenterology Progress Note ---
Date of Service December 27, 2024 Assessment & Plan (1) GI bleed: Plan: No overt bleeding hemoglobin 9.1. Endoscopy unrevealing for cause for GI blood loss. Will proceed with colonoscopy in AM. Admission and Anticipated Discharge Date Admission Date: December 24, 2024 Subjective Denies shortness of breath chest pain or abdominal pain Physical Exam Physical Exam: No acute distress Respiratory rate regular Cardiac rhythm regular Abdomen soft nontender Results & Data Results & Data Vital Signs (Past 12 Hours) Vital Signs Temp Pulse Pulse Resp BP BP Pulse Ox 12/27/24 07:17 36.6 C 85 18 131/77 95 12/27/24 03:37 36.4 C L 83 18 117/67 94 12/26/24 23:50 36.6 C 91 H 20 121/67 96 12/26/24 23:00 90 12/26/24 19:42 36.5 C 83 18 133/84 96 O2 Del Method 12/27/24 07:17 Room Air 12/27/24 03:37 Room Air 12/26/24 23:50 Room Air 12/26/24 23:00 12/26/24 19:42 Room Air Laboratory Results Laboratory Results - last 48 hr 12/24/24 12/25/24 12/26/24 19:06 11:56 07:10 WBC 6.99 RBC 2.82 L Hgb 8.7 L 8.8 L Hct 26.7 L 27.1 L MCV 96.1 MCH 31.2 MCHC 32.5 RDW Std Deviation 65.2 H RDW Coeff of Bhavesh 18.7 H Plt Count 249 MPV 8.9 L Absolute Nucleated RBC Nucleated RBC % (auto) Platelet Estimate Sodium 143 Potassium 3.6 Chloride 114 H Carbon Dioxide 24 Anion Gap 5 BUN 10 Creatinine 0.58 L Est Cr Clr Drug Dosing 78.7 eGFR 93.15 BUN/Creatinine Ratio 17.2 Glucose 95 Calcium 7.9 L Phosphorus 3.5 Magnesium 2.1 Crossmatch See Detail 12/27/24 12/27/24 06:17 07:33 WBC Cancelled 6.20 RBC Cancelled 3.02 L Hgb Cancelled 9.1 L Hct Cancelled 29.0 L MCV Cancelled 96.0 MCH Cancelled 30.1 MCHC Cancelled 31.4 L RDW Std Deviation Cancelled 61.3 H RDW Coeff of Bhavesh Cancelled 17.7 H Plt Count Cancelled 269 MPV Cancelled 8.7 L Absolute Nucleated RBC Cancelled Nucleated RBC % (auto) Cancelled Platelet Estimate Cancelled Sodium 141 Potassium 3.5 Chloride 111 H Carbon Dioxide 25 Anion Gap 5 BUN 7 Creatinine 0.54 L Est Cr Clr Drug Dosing 83.5 eGFR 94.77 BUN/Creatinine Ratio 13.0 Glucose 95 Calcium 7.8 L Phosphorus Magnesium Crossmatch PG Care Time/CCT Total # of Minutes Spent Total Time Spent with Patient: Total time spent is greater than 50% in coordination of care (as documented) at patient's floor/unit and/or counseling patient: Coding Level of Care Code 02395 SUB INP/OBS CARE 2/35MIN Diagnoses GI bleed K92.2
--- NOTE | 2024-12-27 12:06 | Hospitalist Progress Note ---
Date of Service December 27, 2024 Assessment & Plan (1) GI bleed: Plan (1) Symptomatic anemia: 2 unit of packed RBCs has been transfused, Hb 9.1 Trend H&H Possible GI bleed, continues to have black BM GI evaled, s/p EGD 12/25 - nl exam, rec is colon scope on Saturday. Continue IV PPI (2) Status post right knee replacement: PT and OT consult (3) Seizure disorder: Continue Keppra (4) Multinodular goiter: Continue methimazole Prior attending reviewed the CT findings with her daughter. Appears as though there may be some enlargement with some encroachment upon the trachea Will need follow-up with ENT and endocrinology on dc. (5) Diverticular disease: Patient just finished a course of Augmentin The left lower quadrant discomfort has resolved Admission and Anticipated Discharge Date Admission Date: December 24, 2024 Subjective Patient was seen and examined at bedside. Patient was sitting up in bed, on room air, NAD, resting comfortably. Patient reports further black bowel movement since yesterday, denies any nausea or abdominal pain. Patient denies any fever/cough/chest pain. Physical Exam Physical Exam: General- adult elderly female, appears weak, chronically ill/weak. Head- atraumatic Eyes- PERRL, EOMI, anicteric ENT- oropharynx clear Neck- supple, no JVD, no adenopathy, pos thyromegaly; carotids +2/2, no bruits appreciated Lungs- clear to auscultation and percussion Heart- regular rhythm; no murmur, no gallop, no rub appreciated Abdomen- normal bowel sounds, soft, non tender, no rebound, no masses or hepatosplenomegaly Extremities-2+ edema on the right, 1+ edema on the left. She said she normally has edema but it is a little worse on the right side since the total knee replacement., no calf tenderness; peripheral pulses intact Neuro- alert, oriented x 3; PERRL, EOMI; no facial palsy; no dysarthria; motor 5/5 bilaterally; Skin- warm & dry Results & Data Results & Data Vital Signs (Past 12 Hours) Vital Signs Temp Pulse Pulse Resp BP BP Pulse Ox 12/27/24 11:42 36.5 C 93 H 16 134/78 96 12/27/24 10:58 98 H 12/27/24 07:17 36.6 C 85 18 131/77 95 12/27/24 03:37 36.4 C L 83 18 117/67 94 12/26/24 23:50 36.6 C 91 H 20 121/67 96 O2 Del Method 12/27/24 11:42 Room Air 12/27/24 10:58 12/27/24 07:17 Room Air 12/27/24 03:37 Room Air 12/26/24 23:50 Room Air
[2024-12-27] MEDS ORDERED: LAVAGE SOLUTION 4000ML PO SCH (16:00)
[2024-12-27] MEDS: LAVAGE SOLUTION 4000ML PO SCH (16:01)
[2024-12-28] MEDS: CYCLOBENZAPRINE HCL 10 MG TAB PO PRN (00:07)
--- NOTE | 2024-12-28 09:37 | History & Physical Bridge Note ---
Date of Service December 28, 2024 History & Physical Bridge Note I have examined the patient, reviewed the History & Physical and in the interval since the performance of the History & Physical I have noted the following changes of clinical significance: no changes noted. She has finished her colon prep and reports clear stools. rest of GI ros are unremarkable. Will plan to proceed with a colonoscopy today to further evaluate for GI blood loss. Supervising Physician Co-Signing Physician Notes I personally saw and examined the patient. I have reviewed the chart and agree with the documentation provided by the [employer]IV[employer] PROF[employer]OR including discussion about the assessment, treatment and plan. Briefly, we will proceed with colonoscopy as the prep is work. She did have a little bout of vasovagal syncope but feels much better now.
--- NOTE | 2024-12-28 10:31 | Anesthesiology Consultation ---
Date of Service December 28, 2024 Assessment & Plan Chart Review Chart Review: Acceptable Risk for Surgery and Patient NOT seen in Pre Admission Testing Consults Requested none ASA ASA4 Proposed Anesthesia Anesthesia Type: MAC History Surgery Operation Date: 12/25/24 17:35 Proposed Procedures p Esophagogastroduodenoscopy Dr. Georgia Ho MD Operation Date: 12/28/24 16:30 Proposed Procedures p Colonoscopy Ebony - Pankaj Beck MD Height/Weight Height: 5 ft 3 in Weight: 73 kg Allergies Allergy/AdvReac Type Severity Reaction Status Date / Time clams Allergy Severe Dyspepsia, Verified 12/25/24 13:10 abdominal pain Medications Home Medications Medication Instructions Recorded Confirmed Last Taken calcium 500 mg (as 1 tab PO BID 04/24/22 12/24/24 12/23/24 20:00 carbonate)-vitamin D3 5 mcg (200 unit) tablet (Calcium 500 + D) multivitamin with minerals 1 tab PO DAILY 04/24/22 12/24/24 12/24/24 13:00 olopatadine 0.1 % eye drops 1 drp OPB DAILY PRN allergies 04/24/22 12/24/24 12/23/24 20:00 vitamin B complex 1 tab PO DAILY 04/24/22 12/24/24 12/24/24 07:00 L.acidop,casei,lactis,rham-B.lact,marcelle 1 cap PO QPM 05/17/23 12/24/24 12/24/24 12:00 625 mg (10 billion cell) capsule (Advanced Probiotic) methimazole 5 mg tablet 5 mg PO QAM 05/17/23 12/24/24 12/24/24 07:00 latanoprost 0.005 % eye drops 1 drp OPR HS 09/04/23 12/24/24 12/23/24 20:00 escitalopram oxalate 10 mg tablet 10 mg PO HS 09/01/24 12/24/24 12/23/24 20:00 levetiracetam 1,000 mg tablet 1,000 mg PO BID 30 days #60 tabs 09/01/24 12/24/24 12/24/24 07:00 pravastatin 20 mg tablet 20 mg PO HS 09/01/24 12/24/24 12/23/24 20:00 aspirin 81 mg tablet,delayed 81 mg PO BID 42 days #0 tabs 11/27/24 12/24/24 12/24/24 07:00 release cyclobenzaprine 10 mg tablet 10 mg PO BID PRN muscle spasm #20 11/28/24 12/24/24 12/23/24 20:00 tabs acetaminophen 500 mg tablet 1,000 mg PO Q6H PRN Pain 11/29/24 12/24/24 12/24/24 15:00 ferrous sulfate 325 mg (65 mg 325 mg PO BIDM 30 days #60 tabs 12/01/24 12/24/24 12/24/24 07:00 iron) tablet,delayed release Active Medications Generic Name Dose Route Start Last Admin Trade Name Freq PRN Reason Stop Dose Admin Acetaminophen 1,000 mg 12/24/24 22:03 12/28/24 07:35 Acetaminophen 500 Mg Tab PO 01/23/25 22:02 1,000 mg Q6H PRN Administration Pain Calcium/Vitamin D 1 tab 12/24/24 22:03 12/28/24 10:15 Calcium 600mg + Vit D 400 Iu Tab PO 01/23/25 22:02 Not Given BID JUAN FRANCISCO Cyclobenzaprine HCl 10 mg 12/24/24 22:03 12/28/24 00:07 Cyclobenzaprine Hcl 10 Mg Tab PO 01/23/25 22:02 10 mg BID PRN Administration muscle spasm Escitalopram Oxalate 10 mg 12/24/24 22:03 12/27/24 20:59 Escitalopram Oxalate 10 Mg Tab PO 01/23/25 22:02 10 mg HS JUAN FRANCISCO Administration Pantoprazole Sodium 40 mg/ 100 mls @ 20 mls/hr 12/24/24 19:00 12/28/24 06:15 Dextrose IV 01/23/25 18:59 8 mg/hr Q5H JUAN FRANCISCO 20 mls/hr Administration 8 MG/HR Lactobacillus Acidophilus 1,250 mg 12/24/24 22:03 12/27/24 21:01 Advanced Probiotic 625 Mg Capsule PO 01/23/25 22:02 Not Given QPM JUAN FRANCISCO Latanoprost 1 drops 12/24/24 22:03 12/27/24 21:00 Latanoprost 0.005% Op Soln 2.5 Ml Btl OPR 01/23/25 22:02 1 drops HS JUAN FRANCISCO Administration Levetiracetam 1,000 mg 12/24/24 22:03 12/28/24 07:38 Levetiracetam 500 Mg Tab PO 01/23/25 22:02 1,000 mg BID JUAN FRANCISCO Administration Methimazole 5 mg 12/25/24 09:00 12/28/24 07:44 Methimazole 5 Mg Tablet PO 01/24/25 08:59 5 mg QAM JUAN FRANCISCO Administration Multivitamins/Minerals 1 tab 12/25/24 09:00 12/28/24 10:15 Cerovite Adv Formula Tab PO 01/24/25 08:59 Not Given DAILY JUAN FRANCISCO Polyethylene Glycol/Electrolytes 16 dose 12/27/24 16:00 12/27/24 16:01 Lavage Solution 4000ml PO 01/26/25 15:59 16 dose TODAY@1600 JUAN FRANCISCO Administration Pravastatin Sodium 20 mg 12/24/24 22:03 12/27/24 20:59 Pravastatin Sod 20 Mg Tab PO 01/23/25 22:02 20 mg HS JUAN FRANCISCO Administration Vitamin B Complex 1 tab 12/25/24 09:00 12/28/24 10:16 Vitamin B Complex Tab PO 01/24/25 08:59 Not Given DAILY JUAN FRANCISCO Past Medical History Medical History Vasovagal episode Hx Hyperthyroidism Taking Methimazole Tachycardia (09/2024) [facility] visit > discussed f/u with PCP + neuro (recent 72 hour heart monitor mentioned) Osteoporosis Anxiety History of TIAs (2021) Possible Follows with [facility] neuro Seizure disorder Most recent seizure 10+ years ago Taking Levetiracetam Follows with [facility] neuro Osteoarthritis Multinodular goiter Arthritis Hiatal hernia Diverticular disease Hx of basal cell carcinoma s/p excision Glaucoma B/L anemia Exercise / Class Metabolic Activity III < 4 Walking/Shop/Light housework Past Family History Family History Daughter Breast cancer Past Surgical History Surgical History History of anesthesia reaction Difficulty waking & low BP requiring additional days stay during left knee surgery 2022 History of total left knee replacement (TKR) (06/28/23) Left TKA (9/8/23): SAB at L3/4 (1 attempt) + regional at [facility] History of tonsillectomy History of tooth extraction Hx of cataract surgery R/L History of colonoscopy Hx laparoscopic cholecystectomy (07/2019) Laparoscopic Cholecystectomy (08/06/19): Grade 1 view, MAC#3, ETT 7.0, atraumatic Hx of basal cell carcinoma excision History of elbow surgery Right x2 (removal of hardware) Past Anesthesia History No Hx of Anesthesia Complications and No Family Hx of Anesthesia Complications History of PONV No Hx of PONV and No Hx of Motion Sickness Social History Smoking Status: Never smoker Do You Dip or Chew Tobacco: No Hx Alcohol Use: No Alcohol type: wine alcohol intake frequency: holidays/special occasions only Hx Substance Use: No substance use type: does not use Physical Exam Vital Signs Last Vital Signs Temp 36.6 C 12/28/24 07:58 Pulse 83 12/28/24 07:58 Resp 19 12/28/24 07:58 BP 125/74 12/28/24 07:58 Pulse Ox 93 12/28/24 07:58 O2 Del Method Room Air 12/28/24 07:58 Testing Laboratory Results 12/27/24 07:33 12/27/24 06:17 PT 10.6 Seconds (9.0-12.0) 12/24/24 17:29 INR 1.0 (0.9-1.1) 12/24/24 17:29 APTT 21 Seconds (21-31) 12/24/24 17:29 Blood Type O Positive 12/24/24 19:06 Antibody Screen NEGATIVE 12/24/24 19:06 Electrocardiogram Date: 12/24/24 Findings: + ST @ Chest X-Ray Date: 12/24/24 Findings: + NAD and + other (large H/H)
--- NOTE | 2024-12-28 10:58 | Hospitalist Progress Note ---
Date of Service December 28, 2024 Assessment & Plan (1) GI bleed: Plan (1) Symptomatic anemia: 2 unit of packed RBCs has been transfused, repeat labs today. Trend H&H Possible GI bleed, continues to have black BM GI evaled, s/p EGD 12/25 - nl exam, rec is colon scope today. Continue IV PPI (2) Status post right knee replacement: PT and OT consult (3) Seizure disorder: Continue Keppra (4) Multinodular goiter: Continue methimazole Prior attending reviewed the CT findings with her daughter. Appears as though there may be some enlargement with some encroachment upon the trachea Will need follow-up with ENT and endocrinology on dc. (5) Diverticular disease: Patient just finished a course of Augmentin The left lower quadrant discomfort has resolved Admission and Anticipated Discharge Date Admission Date: December 24, 2024 Subjective Patient was seen and examined at bedside. Patient was lying in bed, on room air, NAD, resting comfortably. Patient denies any nausea or abdominal pain. Patient denies any fever/cough/chest pain. Awaiting c scope today. Physical Exam Physical Exam: General- adult elderly female, appears weak, chronically ill/weak. Head- atraumatic Eyes- PERRL, EOMI, anicteric ENT- oropharynx clear Neck- supple, no JVD, no adenopathy, pos thyromegaly; carotids +2/2, no bruits appreciated Lungs- clear to auscultation and percussion Heart- regular rhythm; no murmur, no gallop, no rub appreciated Abdomen- normal bowel sounds, soft, non tender, no rebound, no masses or hepatosplenomegaly Extremities-2+ edema on the right, 1+ edema on the left. She said she normally has edema but it is a little worse on the right side since the total knee replacement., no calf tenderness; peripheral pulses intact Neuro- alert, oriented x 3; PERRL, EOMI; no facial palsy; no dysarthria; motor 5/5 bilaterally; Skin- warm & dry Results & Data Results & Data Vital Signs (Past 12 Hours) Vital Signs Temp Pulse Pulse Resp BP BP Pulse Ox 12/28/24 10:50 36.4 C L 85 18 136/73 98 12/28/24 07:58 36.6 C 83 19 125/74 93 12/28/24 07:10 87 12/28/24 04:09 36.7 C 90 16 129/70 94 12/28/24 00:53 72 12/27/24 23:04 36.8 C 79 18 145/86 H 99 O2 Del Method 12/28/24 10:50 Room Air 12/28/24 07:58 Room Air 12/28/24 07:10 12/28/24 04:09 Room Air 12/28/24 00:53 12/27/24 23:04 Room Air
[2024-12-28] MEDS ORDERED: ATROPINE SULFATE 0.1 MG/ML 10ML SYR IV PRN (11:08)
[2024-12-28] MEDS ORDERED: ePHEDrine sulfate 50 MG/ML AMP IV PRN (11:08)
--- NOTE | 2024-12-28 11:37 | Anesthesiology Progress Note ---
Date of Service December 28, 2024 Anesthesia Post Procedure Vital Signs Vital Signs: Temp Pulse Pulse Resp BP BP Pulse Ox 12/28/24 10:50 36.4 C L 85 18 136/73 98 12/28/24 07:58 36.6 C 83 19 125/74 93 12/28/24 07:10 87 12/28/24 04:09 36.7 C 90 16 129/70 94 12/28/24 00:53 72 12/27/24 23:04 36.8 C 79 18 145/86 H 99 12/27/24 19:14 36.6 C 85 20 155/84 H 98 12/27/24 15:17 36.8 C 12/27/24 15:14 90 18 138/78 96 12/27/24 13:49 92 H 12/27/24 11:42 36.5 C 93 H 16 134/78 96 O2 Del Method 12/28/24 10:50 Room Air 12/28/24 07:58 Room Air 12/28/24 07:10 12/28/24 04:09 Room Air 12/28/24 00:53 12/27/24 23:04 Room Air 12/27/24 19:14 Room Air 12/27/24 15:17 12/27/24 15:14 Room Air 12/27/24 13:49 12/27/24 11:42 Room Air Pain Intensity Right Knee: Pain Intensity: 2 Transfer of Care Handoff Completed per policy Notes Mental Status: alert / awake / arousable Patient Amnestic to Procedure: Yes Nausea / Vomiting: adequately controlled Pain: adequately controlled Airway Patency, RR, SpO2: stable & adequate BP & HR: stable & adequate Hydration State: stable & adequate Anesthetic Complications: no major complications apparent
--- NOTE | 2024-12-28 11:51 | GI REPORT ---
[facility] Patient: RICKY ANDREA : 1945 Sex at : Female Age: 79 Years Procedure: Colonoscopy Date: 12/28/2024 Attending Physician: Pankaj Beck MD Referring MD: Referred Self Indications: - Unexplained iron deficiency anemia Medications: - Monitored Anesthesia Care Complications: - No immediate complications. Estimated Blood Loss: - Estimated blood loss: None. Procedure: - Prior to the procedure, a History and Physical was performed, and patient medications and allergies were reviewed. The patient's tolerance of previous anesthesia was also reviewed. The risks and benefits of the procedure and the sedation options and risks were discussed with the patient. All questions were answered, and informed consent was obtained. Prior Anticoagulants: The patient has taken no anticoagulant or antiplatelet agents. ASA Grade Assessment: IV - A patient with severe systemic disease that is a constant threat to life. After reviewing the risks and benefits, the patient was deemed in satisfactory condition to undergo the procedure. - The pediatric colonoscope was introduced through the anus and advanced to the terminal ileum, with identification of the appendiceal orifice and ileocecal valve. - The colonoscopy was performed without difficulty. - The patient tolerated the procedure well. - The quality of the bowel preparation was good. - The ileocecal valve, appendiceal orifice, and rectum were photographed. Findings: - The terminal ileum appeared normal. - The exam was otherwise without abnormality on direct and retroflexion views. - Multiple small-mouthed diverticula were found in the sigmoid colon. - Non-bleeding hemorrhoids were found during retroflexion. The hemorrhoids were small. - A diminutive (1-3 mm) polyp was found in the ascending colon. The polyp was sessile. The polyp was removed with a cold biopsy forceps. Resection and retrieval were complete. Impression: - The examined portion of the ileum was normal. - The examination was otherwise normal on direct and retroflexion views. - Diverticulosis in the sigmoid colon. - Non-bleeding hemorrhoids. - One diminutive (1-3 mm) polyp in the ascending colon, removed with a cold biopsy forceps. Resected and retrieved. Recommendation: - Discharge patient to home (ambulatory). - Resume previous diet. - Continue present medications. - Repeat colonoscopy date to be determined after pending pathology results are reviewed for surveillance based on pathology results. - Return to referring physician as previously scheduled. - Patient has a contact number available for emergencies. The signs and symptoms of potential delayed complications were discussed with the patient. Return to normal activities tomorrow. Written discharge instructions were provided to the patient. - Started cardiac diet. No obvious source of significant anemia noted suspect this is from small bowel AVMs. If anemia persists, suggest outpatient capsule endoscopy. GI will sign off please call us with any questions. Procedure Code(s): - 20167, Colonoscopy, flexible; with biopsy, single or multiple Diagnosis Code(s): - D50.9, Iron deficiency anemia, unspecified - D12.2, Benign neoplasm of ascending colon - K64.9, Unspecified hemorrhoids - K57.30, Diverticulosis of large intestine without perforation or abscess without bleeding CPT(R) - 2023 copyright [employer]. All Rights Reserved. The CPT codes, CCI edits and ICD codes generated are intended as suggestions and were generated based on input data. These codes are preliminary and upon scourer review may be revised to meet current compliance and payer requirements. The provider is responsible for the final determination of appropriate codes, and modifiers. Pankaj Beck MD This document has been electronically signed. Note Initiated:12/28/2024 Note Completed:12/28/2024 11:50 AM \\[email or web address]\Central\[email or web address]\Data\Provation\Results\LIVE\[id number].pdf
[2024-12-28] MEDS: PROPOFOL IV EMULSION 10 MG/ML 20 ML VIAL IV ONE (12:20)
[2024-12-28 12:49] LABS: Hemoglobin 10.1 g/dl (12.0-16.0); Mean Corpuscular Hemoglobin 31.4 pg (25.0-34.0); Mean Corpuscular Hgb Conc 32.6 g/dL (32.0-36.0); Mean Corpuscular Volume 96.3 fL (80.0-100.0); Platelet Count 283 K/uL (130-400); RDW Coefficient of Variation 16.6 % (11.5-14.5); RDW Standard Deviation 58.8 fL (36.4-46.3); Red Blood Count 3.22 M/uL (4.20-5.40); White Blood Count 6.39 K/ul (4.8-10.8)
[2024-12-28 13:08] LABS: BUN Creatinine Ratio 8.3 (10-20); Calcium 8.4 mg/dl (8.6-10.3); Creatinine Clr Calc Pharmacy 75.2 ml/min; Magnesium 2.1 mg/dl (1.7-2.4); Potassium 3.6 mmol/L (3.5-5.1)
[2024-12-29 06:44] LABS: Hematocrit (blood only) 29.4 % (37.0-47.0); Hemoglobin 9.4 g/dl (12.0-16.0)
[2024-12-29 07:05] LABS: BUN Creatinine Ratio 10.5 (10-20); Calcium 8.4 mg/dl (8.6-10.3); Potassium 3.5 mmol/L (3.5-5.1)
--- NOTE | 2024-12-29 11:07 | Discharge Summary ---
Date of Service December 29, 2024 Admission HPI Per Admitting Provider Malinda Kenney is a 79-year-old female with a history of osteoarthritis with recent right total knee arthroplasty done in November/2024, multi nodular goiter, hyperthyroidism on methimazole, hypertension, seizure disorder, depression and glaucoma. Patient presents to the ED tonight with her daughter. She has had progressive weakness and shortness of breath. She felt pretty good postoperatively but has had progressive shortness of breath with ambulation getting worse over the past couple days. She was diagnosed with mild diverticulitis and finished a course of Augmentin 2 days ago. She has some mild epigastric discomfort but the left lower quadrant discomfort has resolved. She does have black stools but they are formed and she is on iron. She denies any hematuria or any other source of bleeding. On presentation her hemoglobin was 7.0. She was typed and crossed for 1 unit of packed RBCs. Hemoccult testing in the ED was positive. CT PE study was negative for pulmonary embolism. She has a large hiatal hernia with most of if not all of her stomach involved. CT scan of the abdomen shows no acute findings. There is no evidence of ongoing diverticulitis. Patient was given a PPI/pantoprazole bolus and is on a drip currently. Patient is referred for admission and further workup. Admission Exam Per Admitting Provider Constitutional- no fever; no weight loss, occ chills Eyes- no acute visual changes ENT- no sinus drainage; no pharyngitis Pulmonary- no cough, no wheezing, has shortness of breath Cardiac- no chest pain, no palpitations, no orthopnea, has dependent edema since her RTKR in Nov 2024 GI- no nausea, no vomiting, no diarrhea, no melena, no hematochezia, stools are black but she is on iron supplements. Recent treatment for diverticulitis. Just finished a course of Augmentin 2 days ago. Stools are formed - no dysuria, no hematuria Musculoskeletal- no arthralgias, no myalgias, minimal pain in the right knee. Only takes Tylenol as needed Derm- no rashes, no new skin lesions, no changing skin lesions Lymphatics- no adenopathy Endocrine-has a known multifocal large goiter. Neuro- no headaches, no focal neurologic symptoms Psych- h/o of depression Principal Diagnosis Symptomatic anemia, no clear source identified Discharge Exam General- adult elderly female, appears weak, chronically ill/weak. Head- atraumatic Eyes- PERRL, EOMI, anicteric ENT- oropharynx clear Neck- supple, no JVD, no adenopathy, pos thyromegaly; carotids +2/2, no bruits appreciated Lungs- clear to auscultation and percussion Heart- regular rhythm; no murmur, no gallop, no rub appreciated Abdomen- normal bowel sounds, soft, non tender, no rebound, no masses or hepatosplenomegaly Extremities-2+ edema on the right, 1+ edema on the left. She said she normally has edema but it is a little worse on the right side since the total knee replacement., no calf tenderness; peripheral pulses intact Neuro- alert, oriented x 3; PERRL, EOMI; no facial palsy; no dysarthria; motor 5/5 bilaterally; Skin- warm & dry Discharge Data Allergies Allergy/AdvReac Type Severity Reaction Status Date / Time clams Allergy Severe Dyspepsia, Verified 12/25/24 13:10 abdominal pain Consultations 12/24/24 19:08 ED Decision to Admit Stat 12/24/24 22:03 Consult Gastroenterology Routine Procedures Performed Operation Date: 12/28/24 16:30 Actual Procedures p Colonoscopy Polypectomy - Pankaj Beck MD Ordered Studies 12/24/24 16:58 CT angio chest PE protocol Stat 12/24/24 17:06 CT abd pelvis IV con only Stat Hospital Course (1) GI bleed: Plan (1) Symptomatic anemia: 2 unit of packed RBCs has been transfused, repeat labs today. Trend H&H Possible GI bleed, continues to have black BM GI evaled, s/p EGD 12/25 (nl exam) and C-scope 12/28 (1 small polyp in ascending colon, removed w/ cold biopsy forceps). Hold aspirin for next few days until further eval by PCP, c/w PO PPI, f/u w/ GI On dc. (2) Status post right knee replacement: PT and OT consult (3) Seizure disorder: Continue Keppra (4) Multinodular goiter: Continue methimazole Prior attending reviewed the CT findings with her daughter. Appears as though there may be some enlargement with some encroachment upon the trachea Will need follow-up with ENT and endocrinology on dc. (5) Diverticular disease: Patient just finished a course of Augmentin The left lower quadrant discomfort has resolved Patient is being discharged home with family support and HH with following instructions at the point of discharge: Follow-up with your primary care physician within a week time and likely you will need labs CBC/CMP/magnesium/phosphorus. You underwent colonoscopy while inpatient, follow-up on the pathology results of your colonoscopy during your PCP visit within a week time. Continue to follow-up with your GI physician as an outpatient. If you continue to have anemia as an outpatient, you will likely need further GI physician evaluation and outpatient capsule endoscopy. Hold your aspirin for next 3 to 5 days until your PCP evaluation as an outpatient and further recommendations on resuming aspirin from your PCP office. Take your medications as prescribed. Please make sure that you are able to get your medications today by calling your pharmacy before you leave the hospital so that your treatment continuity is not broken. Home Health Attestation I certify that this patient is under my care and that I, or a physicians assistant director of security working with me, had a face to-face encounter that meets the home health [id number] encounter requirements with this patient. The encounter with the patient was in whole, or in part, for the following medical condition, which is the primary reason for home health care (list medical condition): I certify that, based on my findings, the following services are medically necessary home health services: My clinical findings support the need for the above services because: Further, I certify that my clinical findings support that this patient is homebound (i.e. absences from home require considerable and taxing effort and are for medical reasons or zoroastrian services or infrequently or of short duration when for other reasons) because: Certification for Home Health Services: Based on the above findings, I certify that this patient is confined to the home and needs intermittent fdc care, physical therapy and/or speech therapy or continues to need occupational therapy. The patient is under my care, and I have initiated the establishment of the plan of care. This patient will be followed by a physician who will periodically review the plan of care. Total Time Total Time Spent Total Time Spent (In Minutes): 35 Discharge Plan Discharge Items Patient Disposition: Home - Home Health Services Reason For Visit: GI BLEED Discharge Diagnosis: Symptomatic anemia, no clear source identified Activity: Resume your previous activity Non-emergency contact: Primary Care Provider Call non-emergency contact if: you have any medication questions and your symptoms worsen Follow-up/Referrals: Elvia Rodriguez MD [Primary Care Provider] - (Date & Time 01/05/2025 11:00 AM Provider: Elvia Rodriguez MD General Internal Medicine [facility] ) Diet: Heart Healthy Addtl Attending Provider Instructions: Follow-up with your primary care physician within a week time and likely you will need labs CBC/CMP/magnesium/phosphorus. You underwent colonoscopy while inpatient, follow-up on the pathology results of your colonoscopy during your PCP visit within a week time. Continue to follow-up with your GI physician as an outpatient. If you continue to have anemia as an outpatient, you will likely need further GI physician evaluation and outpatient capsule endoscopy. Hold your aspirin for next 3 to 5 days until your PCP evaluation as an outpati ent and further recommendations on resuming aspirin from your PCP office. Take your medications as prescribed. Please make sure that you are able to get your medications today by calling your pharmacy before you leave the hospital so that your treatment continuity is not broken. Pending Studies at Discharge: Yes Stand-Alone Forms: My [facility] Swapbox, Smoking Cessation Medications and DC Order Prescriptions: New pantoprazole 40 mg tablet,delayed release (DR/EC) 40 mg PO BID Qty: 60 0RF Continued escitalopram oxalate 10 mg tablet 10 mg PO HS pravastatin 20 mg tablet 20 mg PO HS levetiracetam 1,000 mg tablet 1,000 mg PO BID 30 Days Qty: 60 5RF methimazole 5 mg Tablet 5 mg PO QAM Advanced Probiotic 625 mg (10 billion cell) capsule 1 cap PO QPM latanoprost 0.005 % drops 1 drp OPR HS olopatadine 0.1 % Drops 1 drp OPB DAILY PRN (Reason: allergies) vitamin B complex Tablet 1 tab PO DAILY multivitamin with minerals Tablet 1 tab PO DAILY calcium carbonate-vitamin D3 [Calcium 500 + D] 500 mg-5 mcg (200 unit) Tablet 1 tab PO BID acetaminophen 500 mg Tablet 1,000 mg PO Q6H PRN (Reason: Pain) ferrous sulfate 325 mg (65 mg iron) Tablet,Delayed Release (Dr/Ec) 325 mg PO BIDM 30 Days Qty: 60 1RF cyclobenzaprine 10 mg tablet 10 mg PO BID PRN (Reason: muscle spasm) Qty: 20 0RF Held aspirin 81 mg tablet,delayed release (DR/EC) 81 mg PO BID 42 Days Qty: 0 0RF Hold Instructions: Resume on 01/05/25. Hold until further eval and recommendation by PCP office within a week time. Discharge Orders: Discharge Order (Routine); Ordered 12/29/24 Ordered By: Antelmo Dunham Admission Data Admit Date/Time: 12/24/24 20:40 Attending Provider: Antelmo Dunham Admit Provider: Charlie Da Silva Primary Care Provider: Elvia Rodriguez Other Providers: Abran Bro; Layla Mckinley Jr Other Interventions: Discharge Summary Assessment (RN) Last Done: 12/29/24 10:04
[2024-12-29 11:15] VITALS: BP 117/72; PULSE 94; RESP 20; TEMP 98.2; O2SAT 95
[2024-12-29] MEDS: POTASSIUM CHLORIDE CRTAB 20 MEQ TABCR PO STA (12:15)
== END 2024-12-29 15:33 | disposition home health service (06) | DRG 348 ==
LOC: ED 16:12 → SUATTDRO 20:40 → 2E 20:40